=== PATIENT | female | born 1945 | race Caucasian/White ===

== ENCOUNTER → 2016-11-20 | Outpatient (CLI) | payer MEDICARE, OTHER ==
[~2016-11-20] MED LIST: AC500T PO; ACYC800T PO; AZIT-21 PO; CATHETER FLUSH 10 ML SYR IV PRN; DULO60CA58 PO; FURO20TA4 PO; HYDR-3816 PO; HYDR1TAB PO; IOHEXOL 350 MG/ML 100 ML (OMNIPAQUE 350) VIAL IV ONE; LACT1CAP8 PO; LEVO500T69 PO; METO25TA PO; MULT-1029 PO; NAPR-243 PO; NS 100 ML (IVPB) BAG IV ONE
--- OUTSIDE RECORDS SUMMARY | 2016-11-20 12:58 | XMS REPORT | Continuity of Care Document ---
Author Author [facility] Organization [facility] Address Unknown Phone Unavailable Allergies Active Description Code Type Severity Reaction Onset Reported/Identified Relationship to Patient Clinical Status Yes cephalexin [id number] Drug Allergy Unknown N/A 12/21/2010 Yes STEROIDS STEROIDS Unknown N/A 12/21/2010 Yes Sulfa (Sulfonamide Antibiotics) [id number] Drug Allergy Unknown RASH 09/19/2012 Medications Problems Date Dx Coded Attending Type Code Diagnosis Diagnosed By 12/21/2010 Ot 562.10 12/21/2010 Ot V12.72 12/21/2010 Ot V67.09 03/22/2012 Ot 047.9 03/22/2012 Ot 272.4 03/22/2012 Ot 305.1 03/22/2012 Ot 719.41 03/22/2012 Ot 785.3 03/22/2012 Ot V10.3 03/22/2012 Ot V45.71 03/24/2012 Ot 780.4 03/24/2012 Ot 784.0 09/19/2012 Ot 702.19 09/22/2014 CHRISTEN FLORES MD Ot 719.45 10/22/2014 KEESHA PERDUE, CARLOTTA [...] KEESHA PERDUE, CARLOTTA Jerome Ot V12.72 02/10/2015 EKESHA PERDUE, CARLOTTA eJrome Ot V58.69 02/10/2015 KEESHA PERDUE, CARLOTTA Jerome [...] CARLOTTA K Ot 733.00 02/10/2015 KEESHA PERDUE, CARLOTTA Queenie Ot V10.3 02/10/2015 KEESHA PERDUE, CARLOTTA [...] PERDUE, CARLOTTA K Ot V67.1 05/24/2015 KEESHA PERDUE, CARLOTTA K Ot V10.3 05/24/2015 KEESHA PERDUE, [...] PERDUE, CHRISTEN Jamison Ot 305.1 10/27/2015 SANDRA PERDUE, CHRISTEN Jamison Ot 401.9 10/27/2015 SANDRA PERDUE, [...] 10/28/2015 ROXANE VILLAVICENCIO MD, Ot 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 Type Provider Facility Loc./Unit Complaint [id number] 05/01/2016 13:14:00 2015 00:01:00 DIS Outpatient CARLOTTA THAO MD [facility] ONC [id number] 05/17/2016 08:46:00 2015 12:10:00 DIS Outpatient ROXANE VILLAVICENCIO MD [facility] SDC HX POLPS [id number] 05/11/2016 05:35:00 2015 11:10:00 DIS Outpatient ROXANE VILLAVICENCIO MD [facility] PREOP HX POLPS [id number] 09/20/2015 15:06:00 2015 00:01:00 DIS Outpatient CARLOTTA THAO MD [facility] ONC [id number] 10/27/2015 11:04:00 2015 17:43:00 DIS Outpatient ORXANE VILLAVICENCIO MD [facility] SD CHOLELITHIASIS BILIARY COLIC [id number] 05/24/2015 08:05:00 2014 00:01:00 DIS Outpatient CARLOTTA THAO MD [facility] ONC [id number] 05/31/2015 09:50:00 2014 23:59:59 CLS Outpatient CARLOTTA THAO MD [facility] RAD BREAST CA,LUNG NODULES [id number] 03/18/2015 14:04:00 2014 00:01:00 DIS Outpatient CARLOTTA THAO MD [facility] ONC [id number] 02/10/2015 08:31:00 2014 23:59:59 CLS Outpatient CARLOTTA THAO MD [facility] RAD SCREENING [id number] 12/01/2014 07:01:00 2014 23:59:59 CLS Outpatient CHRISTEN FLORES MD [facility] RAD [id number] 10/01/2014 09:17:00 2013 23:59:59 CLS Outpatient CARLOTTA THAO MD [facility] ONC [id number] 08/13/2014 14:21:00 2013 23:59:59 CLS Outpatient CHRISTEN FLORES MD [facility] RAD [id number] 03/17/2014 09:45:00 2013 23:59:59 CLS Outpatient CARLOTTA THAO MD [facility] ONC [id number] 02/09/2014 07:51:00 2013 23:59:59 CLS Outpatient CARLOTTA THAO MD [facility] RAD [id number] 09/01/2013 14:16:00 2012 23:59:59 CLS Outpatient CARLOTTA THAO MD [facility] ONC [id number] 02/18/2013 08:48:00 2012 23:59:59 CLS Outpatient CARLOTTA THAO MD [facility] ONC [id number] 11/20/2016 13:15:00 CARLOTTA Rodríguez MD [facility] RAD BREAST CA,MULTIPLE NODULES OF LUNG [id number] 07/31/2016 00:09:00 CARLOTTA Rodríguez MD [facility] ONC [id number] 02/14/2016 07:24:00 ACT Outpatient CARLOTTA THAO MD [facility] RAD SCREENING [id number] 12/15/2015 11:08:00 Document Registration [id number] 11/17/2015 08:14:00 Document Registration [id number] 02/10/2015 08:32:00 Document Registration [id number] 02/10/2015 08:32:00 Document Registration [id number] 02/06/2013 07:22:00 Document Registration [id number] 09/19/2012 06:04:00 Document Registration [id number] 09/16/2012 12:45:00 Document Registration [id number] 08/20/2012 09:14:00 Document Registration [id number] 07/16/2012 11:14:00 Document Registration [id number] 03/24/2012 10:27:00 Document Registration [id number] 03/20/2012 15:26:00 Document Registration [id number] 02/13/2012 08:52:00 Document Registration [id number] 02/06/2012 09:12:00 Document Registration [id number] 10/03/2011 09:19:00 Document Registration [id number] 09/28/2011 07:06:00 Document Registration [id number] 09/25/2011 13:08:00 Document Registration [id number] 09/01/2011 10:25:00 Document Registration [id number] 05/10/2011 13:01:00 Document Registration [id number] 02/01/2011 07:29:00 Document Registration [id number] 12/21/2010 10:01:00 Document Registration [id number] 11/01/2010 09:25:00 Document Registration
--- NOTE | 2016-11-20 14:39 | Diagnostic Imaging Report ---
PROCEDURE: CT chest with contrast only. TECHNIQUE: Multiple contiguous axial images were obtained through the chest after administration of intravenous contrast. INDICATION: Lung nodule. History of breast cancer. COMPARISON: CT chest with contrast of 12/01/2014, 05/31/2015, 11/17/2015. FINDINGS: Stable 7 mm pulmonary nodule in the right minor fissure (series 2, image 32), 5 mm pulmonary nodule in the right middle lobe (image 39), and 7 mm nodule in the posterior right lower lobe (image 46). Numerous micronodules in the posterior right upper lobe are also stable. No new pulmonary nodules. Moderate centrilobular emphysema, greatest in the lung apices. Mild scarring in the lung bases. 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 No pleural or pericardial effusion. No mediastinal or hilar lymphadenopathy. Stable small esophageal hiatal hernia. Moderate atherosclerotic calcifications. Postoperative changes in the left axilla. Cholecystectomy. The visualized upper abdominal contents, including the adrenal glands, are unremarkable. Mild degenerative changes in the spine. IMPRESSION: 1. The pulmonary nodules in the right lung have been stable since 12/01/2014 and should be benign. No new pulmonary nodules. 2. Chronic emphysematous changes are overall stable. 3. No acute CT findings in the chest. Dictated by: Dictated on workstation # [id number]
== END ==
LOC: RAD 12:53
PROVIDERS: ATTEND Internal Medicine Hematology & Oncology
DX: R91.8 Other nonspecific abnormal finding of lung field (principal); C50.412 Malignant neoplasm of upper-outer quadrant of left female breast
CPT/HCPCS: 71260

== ENCOUNTER 2016-11-27 12:52 | Outpatient (RCR) | payer MEDICARE, OTHER ==
--- OUTSIDE RECORDS SUMMARY | 2016-11-20 11:54 | XMS REPORT | Continuity of Care Document ---
Author Author [facility] Organization [facility] Address Unknown Phone Unavailable Allergies Active Description Code Type Severity Reaction Onset Reported/Identified Relationship to Patient Clinical Status Yes cephalexin [id number] Drug Allergy Unknown N/A 12/21/2010 Yes STEROIDS STEROIDS Unknown N/A 12/21/2010 Yes Sulfa (Sulfonamide Antibiotics) [id number] Drug Allergy Unknown RASH 09/19/2012 Medications Problems Date Dx Coded Attending Type Code Diagnosis Diagnosed By 12/21/2010 Ot 562.10 12/21/2010 Ot V12.72 12/21/2010 Ot V67.09 03/22/2012 Ot 047.9 03/22/2012 Ot 272.4 03/22/2012 Ot 305.1 03/22/2012 Ot 719.41 03/22/2012 Ot 785.3 03/22/2012 Ot V10.3 03/22/2012 Ot V45.71 03/24/2012 Ot 780.4 03/24/2012 Ot 784.0 09/19/2012 Ot 702.19 09/22/2014 CHRISTEN FLROES MD Ot 719.45 10/22/2014 KEESHA PERDUE, CARLOTTA Jerome Ot 305.1 10/22/2014 KEESHA PERDUE, CARLOTTA Jerome Ot 733.00 10/22/2014 KEESHA PERDUE, CARLOTTA Jerome Ot V10.3 10/22/2014 KEESHA PERDUE, CARLOTTA Jerome Ot V12.72 10/22/2014 KEESHA PERDUE, CARLOTTA Jerome Ot V58.69 10/22/2014 KEESHA PERDUE, CARLOTTA Jerome Ot V67.1 11/09/2014 KEESHA PERDUE, CARLOTTA Jerome Ot 305.1 11/09/2014 KEESHA PERDUE, CARLOTTA Jerome Ot 733.00 11/09/2014 KEESHA PERDUE, CARLOTTA Jerome Ot V10.3 11/09/2014 KEESHA PERDUE, CARLOTTA Jerome Ot V12.72 11/09/2014 KEESHA PERDUE, CARLOTTA Jerome Ot V58.69 11/09/2014 KEESHA PERDUE, CARLOTTA Jerome Ot V67.1 12/02/2014 KEESHA PERDUE, CARLOTTA K Ot 174.9 12/02/2014 KEESHA PERDUE, CARLOTTA K Ot 305.1 12/02/2014 KEESHA PERDUE, CARLOTTA K Ot 733.00 12/02/2014 KEESHA PERDUE, CARLOTTA K Ot V10.3 12/02/2014 KEESHA PERDUE, CARLOTTA K Ot V12.72 12/02/2014 KEESHA PERDUE, CARLOTTA K Ot V58.69 12/02/2014 KEESHA PERDUE, CARLOTTA K Ot V67.1 12/02/2014 SANDRA PERDUE, CHRISTEN A Ot 719.45 12/02/2014 KEESHA PERDUE, CARLOTTA K Ot 305.1 12/02/2014 KEESHA PERDUE, CARLOTTA K Ot 733.00 12/02/2014 KEESHA PERDUE, CARLOTTA K Ot V10.3 12/02/2014 KEESHA PERDUE, CARLOTTA K Ot V12.72 12/02/2014 KEESHA PERDUE, CARLOTTA K Ot V58.69 12/02/2014 KEESHA PERDUE, CARLOTTA K Ot V67.1 12/03/2014 KEESHA PERDUE, CARLOTTA K Ot 174.9 12/03/2014 KEESHA PERDUE, CARLOTTA K Ot 305.1 12/03/2014 KEESHA PERDUE, CARLOTTA K Ot 733.00 12/03/2014 KEESHA PERDUE, CARLOTTA K Ot V10.3 12/03/2014 KEESHA PERDUE, CARLOTTA K Ot V12.72 12/03/2014 KEESHA PERDUE, CARLOTTA K Ot V58.69 12/03/2014 KEESHA PERDUE, CARLOTTA K Ot V67.1 12/03/2014 SANDRA PERDUE, CHRISTEN A Ot 719.45 12/03/2014 KEESHA PERDUE, CARLOTTA K Ot 305.1 12/03/2014 KEESHA PERDUE, CARLOTTA Queenie Ot 733.00 12/03/2014 KEESHA PERDUE, CARLOTTA K Ot V10.3 12/03/2014 KEESHA PERDUE, CARLOTTA K Ot V12.72 12/03/2014 KEESHA PERDUE, CARLOTTA K Ot V58.69 12/03/2014 KEESHA PERDUE, CARLOTTA K Ot V67.1 12/03/2014 SANDRA PERDUE, CHRISTEN A Ot 305.1 12/03/2014 SANDRA PERDUE, CHRISTEN A Ot 401.9 12/03/2014 SANDRA PERDUE, CHRISTEN A Ot 492.8 12/03/2014 SANDRA PERDUE, CHRISTEN A Ot V81.5 01/08/2015 SANDRA PERDUE, CHRISTEN A Ot 305.1 01/08/2015 SANDRA PERDUE, CHRISTEN Jamison Ot 401.9 01/08/2015 SANDRA PERDUE, CHRISTEN A Ot 492.8 01/08/2015 SANDRA PERDUE, CHRISTEN Jamison Ot V81.5 02/10/2015 Ot 433.30 02/10/2015 Ot 722.4 02/10/2015 Ot 781.2 02/10/2015 Ot 564.00 02/10/2015 Ot 789.00 02/10/2015 Ot 216.5 02/10/2015 Ot 305.1 02/10/2015 Ot 733.00 02/10/2015 Ot V10.3 02/10/2015 Ot V12.72 02/10/2015 Ot V45.77 02/10/2015 Ot V58.69 02/10/2015 Ot V67.1 02/10/2015 Ot 174.9 02/10/2015 Ot 709.9 02/10/2015 Ot V72.84 02/10/2015 Ot V74.8 02/10/2015 Ot 599.0 02/10/2015 KEESHA PERDUE, CARLOTTA Queenie Ot 216.5 02/10/2015 KEESHA PERDUE, CARLOTTA Jerome Ot 305.1 02/10/2015 KEESHA PERDUE, CARLOTTA Jerome Ot 733.00 02/10/2015 KEESHA PERDUE, CARLOTTA Jerome Ot V10.3 02/10/2015 KEESHA PERDUE, CARLOTTA Queenie Ot V12.72 02/10/2015 KEESHA PERDUE, CARLOTTA Queenie Ot V45.77 02/10/2015 KEESHA PERDUE, CARLOTTA Queenie Ot V58.69 02/10/2015 KEESHA PERDUE, CARLOTTA Jerome Ot V67.1 02/10/2015 KEESHA PERDUE, CARLOTTA Jerome Ot 305.1 02/10/2015 KEESHA PERDUE, CARLOTTA Jerome Ot 733.00 02/10/2015 KEESHA PERDUE, CARLOTTA Jerome Ot V10.3 02/10/2015 KEESHA PERDUE, CARLOTTA Jerome Ot V12.72 02/10/2015 KEESHA PERDUE, CARLOTTA Jerome Ot V58.69 02/10/2015 KEESHA PERDUE, CARLOTTA Jerome Ot V67.1 02/10/2015 KEESHA PERDUE, CARLOTTA Jerome Ot 174.9 02/10/2015 KEESHA PERDUE, CARLOTTA Jerome Ot 305.1 02/10/2015 KEESHA PERDUE, CARLOTTA Jerome Ot 733.00 02/10/2015 KEESHA PERDUE, CARLOTTA Jerome Ot V10.3 02/10/2015 KEESHA PERDUE, CARLOTTA Jerome Ot V12.72 02/10/2015 KEESHA PERDUE, CARLOTTA Jerome Ot V58.69 02/10/2015 KEESHA PERDUE, CARLOTTA K Ot V67.1 02/10/2015 SANDRA PERDUE, CHRISTEN A Ot 719.45 02/10/2015 KEESHA PERDUE, CARLOTTA Jerome Ot 305.1 02/10/2015 KEESHA PERDUE, CARLOTTA K Ot 733.00 02/10/2015 KEESHA PERDUE, CARLOTAT Queenie Ot V10.3 02/10/2015 KEESHA PERDUE, CARLOTTA Jerome Ot V12.72 02/10/2015 KEESHA PERDUE, CARLOTTA K Ot V58.69 02/10/2015 KEESHA PERDUE, CARLOTTA K Ot V67.1 02/10/2015 SANDRA PERDUE, CHRISTEN A Ot 305.1 02/10/2015 SANDRA PERDUE, CHRISTEN A Ot 401.9 02/10/2015 SANDRA PERDUE, CHRISTEN A Ot 492.8 02/10/2015 SANDRA PERDUE, CHRISTEN A Ot V81.5 02/10/2015 KEESHA PERDUE, CARLOTTA Jerome Ot V10.3 02/10/2015 KEESHA PERDUE, CARLOTTA Jerome Ot V58.69 02/10/2015 KEESHA PERDUE, CARLOTTA Jerome Ot V67.1 03/05/2015 KEESHA PERDUE, CARLOTTA Jerome Ot V10.3 03/05/2015 KEESHA PERDUE, CARLOTTA Queenie Ot V58.69 03/05/2015 KEESHA PERDUE, CARLOTTA Jerome Ot V67.1 03/13/2015 KEESHA PERDUE, CARLOTTA Jerome Ot 174.9 03/13/2015 KEESHA PERDUE, CARLOTTA K Ot V76.11 04/05/2015 KEESHA PERDUE, CARLOTTA Jerome Ot V10.3 04/05/2015 KEESHA PERDUE, CARLOTTA Jerome Ot V58.69 04/05/2015 KEESHA PERDUE, CARLOTTA K Ot V67.1 05/24/2015 KEESHA PERDEU, CARLOTTA K Ot V10.3 05/24/2015 KEESHA PERDUE, CARLOTTA K Ot V58.69 05/24/2015 KEESHA PERDUE, CARLOTTA K Ot V67.1 05/25/2015 KEESHA PERDUE, CARLOTTA Jerome Ot V10.3 05/25/2015 KEESHA PERDUE, CARLOTTA Jerome Ot V58.69 05/25/2015 KEESHA PERDUE, CARLOTTA K Ot V67.1 06/02/2015 KEESHA PERDUE, CARLOTTA Jerome Ot V10.3 06/02/2015 KEESHA PERDUE, CARLOTTA Jerome Ot V58.69 06/02/2015 KEESHA PERDUE, CARLOTTA K Ot V67.1 06/08/2015 KEESHA PERDUE, CARLOTTA Queenie Ot 174.9 06/08/2015 KEESHA PERDUE, CARLOTTA Jerome Ot 793.19 06/08/2015 KEESHA PERDUE, CARLOTTA Jerome Ot V10.3 06/08/2015 KEESHA PERDUE, CARLOTTA Jerome Ot V58.69 06/08/2015 KEESHA PERDUE, CARLOTTA Jerome Ot V67.1 06/08/2015 KEESHA PERDUE, CARLOTTA Jerome Ot V10.3 06/08/2015 KEESHA PERDUE, CARLOTTA Jerome Ot V58.69 06/08/2015 KEESHA PERDUE, CARLOTTA Jerome Ot V67.1 06/09/2015 KEESHA PERDUE, CARLOTTA Jerome Ot 174.9 06/09/2015 KEESHA PERDUE, CARLOTTA Jerome Ot 793.19 06/23/2015 KEESHA PERDUE, CARLOTTA Queenie Ot 174.9 06/23/2015 KEESHA PERDUE, CARLOTTA Queenie Ot 793.19 07/05/2015 KEESHA PERDUE, CARLOTTA Jerome Ot 174.9 07/05/2015 KEESHA PERDUE, CARLOTTA Jerome Ot 793.19 07/14/2015 KEESHA PERDUE, CARLOTTA Jerome Ot V10.3 HX OF BREAST MALIGNANCY 07/14/2015 KEESHA PERDUE, CARLOTTA Jerome Ot V58.69 OTH MED,LT,CURRENT USE 07/14/2015 KEESHA PERDUE, CARLOTTA Jerome Ot V67.1 RADIOTHERAPY FOLLOW-UP 07/14/2015 KEESHA PERDUE, CARLOTTA Queenie Ot V10.3 07/14/2015 KEESHA PERDUE, CARLOTTA Jerome Ot V58.69 07/14/2015 KEESHA PERDUE, CARLOTTA Jerome Ot V67.1 10/27/2015 Ot 433.30 10/27/2015 Ot 722.4 10/27/2015 Ot 781.2 10/27/2015 Ot 564.00 10/27/2015 Ot 789.00 10/27/2015 Ot 216.5 10/27/2015 Ot 305.1 10/27/2015 Ot 733.00 10/27/2015 Ot V10.3 10/27/2015 Ot V12.72 10/27/2015 Ot V45.77 10/27/2015 Ot V58.69 10/27/2015 Ot V67.1 10/27/2015 Ot 174.9 10/27/2015 Ot 709.9 10/27/2015 Ot V72.84 10/27/2015 Ot V74.8 10/27/2015 Ot 599.0 10/27/2015 KEESHA PERDUE, CARLOTTA Queenie Ot 216.5 10/27/2015 KEESHA PERDUE, CARLOTTA K Ot 305.1 10/27/2015 KEESHA PERDUE, CARLOTTA K Ot 733.00 10/27/2015 KEESHA PERDUE, CARLOTTA K Ot V10.3 10/27/2015 KEESHA PERDUE, CARLOTTA K Ot V12.72 10/27/2015 KEESHA PERDUE, CARLOTTA K Ot V45.77 10/27/2015 KEESHA PERDUE, CARLOTTA K Ot V58.69 10/27/2015 KEESHA PERDUE, CARLOTTA K Ot V67.1 10/27/2015 KEESHA PERDUE, CARLOTTA K Ot 305.1 10/27/2015 KEESHA PERDUE, CARLOTTA K Ot 733.00 10/27/2015 KEESHA PERDUE, CARLOTTA K Ot V10.3 10/27/2015 KEESHA PERDUE, CARLOTTA K Ot V12.72 10/27/2015 KEESHA PERDUE, CARLOTTA K Ot V58.69 10/27/2015 KEESHA PERDUE, CARLOTTA K Ot V67.1 10/27/2015 KEESHA PERDUE, CARLOTTA K Ot 174.9 10/27/2015 KEESHA PERDUE, CARLOTTA K Ot 305.1 10/27/2015 KEESHA PERDUE, CARLOTTA K Ot 733.00 10/27/2015 KEESHA PERDUE, CARLOTTA K Ot V10.3 10/27/2015 KEESHA PERDUE, CARLOTTA K Ot V12.72 10/27/2015 KEESHA PERDUE, CARLOTTA K Ot V58.69 10/27/2015 KEESHA PERDUE, CARLOTTA K Ot V67.1 10/27/2015 SANDRA PERDUE, CHRISTEN Jamison Ot 719.45 10/27/2015 KEESHA PERDUE, CARLOTTA K Ot 305.1 10/27/2015 KEESHA PERDUE, CARLOTTA K Ot 733.00 10/27/2015 KEESHA PERDUE, CARLOTTA K Ot V10.3 10/27/2015 KEESHA PERDUE, CARLOTTA K Ot V12.72 10/27/2015 KEESHA PERDUE, CARLOTTA K Ot V58.69 10/27/2015 KEESHA PERDUE, CARLOTTA K Ot V67.1 10/27/2015 KEESHA PERDUE, CARLOTTA Queenie Ot 174.9 10/27/2015 KEESHA PERDUE, CARLOTTA K Ot V76.11 10/27/2015 SANDRA PERDUE, CHRISTEN Jamison Ot 305.1 10/27/2015 SANDRA PEDRUE, CHRISTEN Jamison Ot 401.9 10/27/2015 SANDRA PERDUE, CHRISTEN A Ot 492.8 10/27/2015 SANDRA PERDUE, CHRISTEN Jamison Ot V81.5 10/27/2015 KEESHA PERDUE, CARLOTTA Jerome Ot 174.9 10/27/2015 KEESHA PERDUE, CARLOTTA Jerome Ot 793.19 10/27/2015 KEESHA PERDUE, CARLOTTA Jerome Ot Z08 10/27/2015 KEESHA PERDUE, CARLOTTA Jerome Ot Z85.3 10/27/2015 KEESHA PERDUE, CARLOTTA Jerome Ot 174.9 10/27/2015 KEESHA PERDUE, CARLOTTA Jerome Ot V76.11 10/27/2015 KEESHA PERDUE, CARLOTTA Jerome Ot 174.9 10/27/2015 KEESHA PERDUE, CARLOTTA Jerome Ot 793.19 10/27/2015 KEESHA PERDUE, CARLOTTA Jerome Ot Z08 10/27/2015 KEESHA PERDUE, CARLOTTA Jerome Ot Z85.3 10/28/2015 ROXANE VILLAVICENCIO MD Ot I10 ESSENTIAL (PRIMARY) HYPERTENSION 10/28/2015 SAUD PERDUE, ROXANE Jones 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 10/28/2015 ROXANE VILLAVICENCIO MD, Ot Z79.899 OTHER POLICE COMMISSIONER (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) DRUG THERAPY 11/10/2015 KEESHA PERDUE, CARLOTTA Queenie Ot Z08 11/10/2015 KEESHA PERDUE, CARLOTTA Jerome Ot Z85.3 11/24/2015 KEESHA PERDUE, CARLOTTA Jerome Ot Z08 11/24/2015 KEESHA PERDUE, CARLOTTA Jerome Ot Z85.3 12/01/2015 KEESHA PERDUE, CARLOTTA Jerome Ot 174.9 12/01/2015 KEESHA PERDUE, CARLOTTA Jerome Ot V76.11 12/01/2015 KEESHA PERDUE, CARLOTTA Jerome Ot 174.9 12/01/2015 KEESHA PERDUE, CARLOTTA Jerome Ot 793.19 12/01/2015 KEESHA PERDUE, CARLOTTA Queenie Ot Z08 12/01/2015 KEESHA PERDUE, CARLOTTA Jerome Ot Z85.3 12/01/2015 Ot J44.9 12/01/2015 Ot R91.1 12/10/2015 Ot J44.9 12/10/2015 Ot R91.1 12/15/2015 Ot 305.1 12/15/2015 Ot 562.10 12/15/2015 Ot 716.90 12/15/2015 Ot 733.00 12/15/2015 Ot V10.3 12/15/2015 Ot V12.72 12/15/2015 Ot V45.77 12/15/2015 Ot V58.69 12/15/2015 Ot V67.1 12/15/2015 Ot 174.9 12/15/2015 Ot 174.9 12/15/2015 Ot 053.9 12/15/2015 Ot 305.1 12/15/2015 Ot 733.00 12/15/2015 Ot V10.3 12/15/2015 Ot V12.72 12/15/2015 Ot V45.77 12/15/2015 Ot V58.69 12/15/2015 Ot V67.1 12/15/2015 Ot 174.9 12/15/2015 Ot 174.9 12/15/2015 Ot 053.9 12/15/2015 Ot 305.1 12/15/2015 Ot 733.00 12/15/2015 Ot V10.3 12/15/2015 Ot V12.72 12/15/2015 Ot V45.77 12/15/2015 Ot V58.69 12/15/2015 Ot V67.1 12/15/2015 Ot 174.9 12/15/2015 Ot 305.1 12/15/2015 Ot 733.00 12/15/2015 Ot V10.3 12/15/2015 Ot V12.72 12/15/2015 Ot V45.77 12/15/2015 Ot V58.69 12/15/2015 Ot V67.1 12/19/2015 CARLOTTA THAO MD Ot Z08 ENCNTR FOR FOLLOW-UP EXAM AFTER TRTMT FO 12/19/2015 CARLOTTA THAO MD Ot Z85.3 PERSONAL HISTORY OF MALIGNANT NEOPLASM O 12/24/2015 Ot J44.9 12/24/2015 Ot R91.1 02/16/2016 CARLOTTA THAO MD Ot R91.8 OTHER NONSPECIFIC ABNORMAL FINDING OF ZOHRA 02/16/2016 CARLOTTA THAO MD Ot Z12.11 ENCOUNTER FOR SCREENING FOR MALIGNANT NE 02/16/2016 CARLOTTA THAO MD Ot R91.8 OTHER NONSPECIFIC ABNORMAL FINDING OF ZOHRA 02/16/2016 CARLOTTA THAO MD Ot Z12.11 ENCOUNTER FOR SCREENING FOR MALIGNANT NE 02/22/2016 CARLOTTA THAO MD Ot Z08 ENCNTR FOR FOLLOW-UP EXAM AFTER TRTMT FO 02/22/2016 CARLOTTA THAO MD Ot Z85.3 PERSONAL HISTORY OF MALIGNANT NEOPLASM O 03/07/2016 CARLOTTA THAO MD Ot R91.8 OTHER NONSPECIFIC ABNORMAL FINDING OF ZOHRA 03/07/2016 CARLOTTA THAO MD Ot Z12.31 ENCNTR SCREEN MAMMOGRAM FOR MALIGNANT NE 04/05/2016 CARLOTTA THAO MD Ot R91.8 OTHER NONSPECIFIC ABNORMAL FINDING OF ZOHRA 04/05/2016 CARLOTTA THAO MD Ot Z12.31 ENCNTR SCREEN MAMMOGRAM FOR MALIGNANT NE 04/19/2016 CARLOTTA THAO MD Ot Z08 ENCNTR FOR FOLLOW-UP EXAM AFTER TRTMT FO 04/19/2016 CARLOTTA THAO MD Ot Z85.3 PERSONAL HISTORY OF MALIGNANT NEOPLASM O 05/11/2016 ROXANE VILLAVICENCIO MD Ot Z01.818 ENCOUNTER FOR OTHER PREPROCEDURAL EXAMIN 05/11/2016 ROXANE VILLAVICENCIO MD Ot Z86.010 PERSONAL HISTORY OF COLONIC POLYPS 05/12/2016 ROXANE VILLAVICENCIO MD Ot Z01.818 ENCOUNTER FOR OTHER PREPROCEDURAL EXAMIN 05/12/2016 ROXANE VILLAVICENCIO MD Ot Z86.010 PERSONAL HISTORY OF COLONIC POLYPS 05/17/2016 ROXANE VILLAVICENCIO MD, Ot K57.90 DVRTCLOS OF INTEST, PART UNSP, W/O PERF 05/17/2016 ROXANE VILLAVICENCIO MD Ot K62.1 RECTAL POLYP 05/17/2016 ROXANE VILLAVICENCIO MD Ot K64.1 SECOND DEGREE HEMORRHOIDS 05/17/2016 ROXANE VILLAVICENCIO MD Ot Z09 ENCNTR FOR F/U EXAM AFT TRTMT FOR COND O 05/17/2016 ROXANE VILLAVICENCIO MD Ot Z85.3 PERSONAL HISTORY OF MALIGNANT NEOPLASM O 05/17/2016 ROXANE VILLAVICENCIO MD Ot Z86.010 PERSONAL HISTORY OF COLONIC POLYPS 05/18/2016 ROXANE VILLAVICENCIO MD Ot K57.90 DVRTCLOS OF INTEST, PART UNSP, W/O PERF 05/18/2016 ROXANE VILLAVICENCIO MD Ot K62.1 RECTAL POLYP 05/18/2016 ROXANE VILLAVICENCIO MD Ot K64.1 SECOND DEGREE HEMORRHOIDS 05/18/2016 ROXANE VILLAVICENCIO MD Ot Z09 ENCNTR FOR F/U EXAM AFT TRTMT FOR COND O 05/18/2016 ROXANE VILLAVICENCIO MD Ot Z85.3 PERSONAL HISTORY OF MALIGNANT NEOPLASM O 05/18/2016 ROXANE VILLAVICENCIO MD Ot Z86.010 PERSONAL HISTORY OF COLONIC POLYPS 05/19/2016 ROXANE VILLAVICENCIO MD Ot K57.90 DVRTCLOS OF INTEST, PART UNSP, W/O PERF 05/19/2016 ROXANE VILLAVICENCIO MD Ot K62.1 RECTAL POLYP 05/19/2016 ROXANE VILLAVICENCIO MD, Ot K64.1 SECOND DEGREE HEMORRHOIDS 05/19/2016 ROXANE VILLAVICENCIO MD Ot Z09 ENCNTR FOR F/U EXAM AFT TRTMT FOR COND O 05/19/2016 ROXANE VILLAVICENCIO MD, Ot Z85.3 PERSONAL HISTORY OF MALIGNANT NEOPLASM O 05/19/2016 ROXANE VILLAVICENCIO MD, Ot Z86.010 PERSONAL HISTORY OF COLONIC POLYPS 05/23/2016 ROXANE VILLAVICENCIO MD, Ot K57.90 DVRTCLOS OF INTEST, PART UNSP, W/O PERF 05/23/2016 ROXANE VILLAVICENCIO MD, Ot K62.1 RECTAL POLYP 05/23/2016 ROXANE VILLAVICENCIO MD, Ot K64.1 SECOND DEGREE HEMORRHOIDS 05/23/2016 ROXANE VILLAVICENCIO MD, Ot Z09 ENCNTR FOR F/U EXAM AFT TRTMT FOR COND O 05/23/2016 ROXANE VILLAVICENCIO MD, Ot Z85.3 PERSONAL HISTORY OF MALIGNANT NEOPLASM O 05/23/2016 ROXANE VILLAVICENCIO MD, Ot Z86.010 PERSONAL HISTORY OF COLONIC POLYPS 05/26/2016 KEESHA PERDUE, CARLOTTA Jerome Ot Z08 ENCNTR FOR FOLLOW-UP EXAM AFTER TRTMT FO 05/26/2016 CARLOTTA THAO MD Ot Z85.3 PERSONAL HISTORY OF MALIGNANT NEOPLASM O 06/14/2016 CARLOTTA THAO MD Ot Z08 ENCNTR FOR FOLLOW-UP EXAM AFTER TRTMT FO 06/14/2016 CARLOTTA THAO MD Ot Z85.3 PERSONAL HISTORY OF MALIGNANT NEOPLASM O 07/03/2016 CARLOTTA THAO MD Ot Z08 ENCNTR FOR FOLLOW-UP EXAM AFTER TRTMT FO 07/03/2016 CARLOTTA THAO MD Ot Z85.3 PERSONAL HISTORY OF MALIGNANT NEOPLASM O 07/30/2016 CARLOTTA THAO MD Ot Z08 ENCNTR FOR FOLLOW-UP EXAM AFTER TRTMT FO 07/30/2016 CARLOTTA THAO MD Ot Z85.3 PERSONAL HISTORY OF MALIGNANT NEOPLASM O 08/05/2016 CARLOTTA THAO MD Ot Z08 ENCNTR FOR FOLLOW-UP EXAM AFTER TRTMT FO 08/05/2016 CARLOTTA THAO MD Ot Z85.3 PERSONAL HISTORY OF MALIGNANT NEOPLASM O 10/14/2016 Ot 174.9 MALIGN NEOPL BREAST NOS 10/14/2016 Ot 053.9 HERPES ZOSTER NOS 10/14/2016 Ot 305.1 TOBACCO USE DISORDER 10/14/2016 Ot 733.00 OSTEOPOROSIS NOS 10/14/2016 Ot V10.3 HX OF BREAST MALIGNANCY 10/14/2016 Ot V12.72 PERSONAL HISTORY OF COLONIC POLYPS 10/14/2016 Ot V45.77 ACQRD ABSENCE OF GENITAL ORGANS 10/14/2016 Ot V58.69 OTH MED,LT,CURRENT USE 10/14/2016 Ot V67.1 RADIOTHERAPY FOLLOW-UP 10/14/2016 Ot 174.9 MALIGN NEOPL BREAST NOS 10/14/2016 Ot 174.9 MALIGN NEOPL BREAST NOS 10/14/2016 Ot 053.9 HERPES ZOSTER NOS 10/14/2016 Ot 305.1 TOBACCO USE DISORDER 10/14/2016 Ot 733.00 OSTEOPOROSIS NOS 10/14/2016 Ot V10.3 HX OF BREAST MALIGNANCY 10/14/2016 Ot V12.72 PERSONAL HISTORY OF COLONIC POLYPS 10/14/2016 Ot V45.77 ACQRD ABSENCE OF GENITAL ORGANS 10/14/2016 Ot V58.69 OTH MED,LT,CURRENT USE 10/14/2016 Ot V67.1 RADIOTHERAPY FOLLOW-UP 10/14/2016 Ot 174.9 MALIGN NEOPL BREAST NOS 10/14/2016 Ot 305.1 TOBACCO USE DISORDER 10/14/2016 Ot 733.00 OSTEOPOROSIS NOS 10/14/2016 Ot V10.3 HX OF BREAST MALIGNANCY 10/14/2016 Ot V12.72 PERSONAL HISTORY OF COLONIC POLYPS 10/14/2016 Ot V45.77 ACQRD ABSENCE OF GENITAL ORGANS 10/14/2016 Ot V58.69 OTH MED,LT,CURRENT USE 10/14/2016 Ot V67.1 RADIOTHERAPY FOLLOW-UP 10/14/2016 CARLOTTA THAO MD Ot 174.9 MALIGN NEOPL BREAST NOS 10/14/2016 CARLOTTA THAO MD Ot V76.11 SCRN MAMMO-HIGH RISK PT, MALIGNANT NEOPL 10/14/2016 CARLOTTA THAO MD Ot 174.9 MALIGN NEOPL BREAST NOS 10/14/2016 CARLOTTA THAO MD Ot 793.19 OTHER NONSPECIFIC ABNORMAL FINDING OF ZOHRA 10/14/2016 Ot J44.9 CHRONIC OBSTRUCTIVE PULMONARY DISEASE, U 10/14/2016 Ot R91.1 SOLITARY PULMONARY NODULE 10/14/2016 CARLOTTA THAO MD Ot R91.8 OTHER NONSPECIFIC ABNORMAL FINDING OF ZOHRA 10/14/2016 CARLOTTA THAO MD Ot Z12.31 ENCNTR SCREEN MAMMOGRAM FOR MALIGNANT NE 10/14/2016 CARLOTTA THAO MD Ot Z08 ENCNTR FOR FOLLOW-UP EXAM AFTER TRTMT FO 10/14/2016 CARLOTTA THAO MD Ot Z85.3 PERSONAL HISTORY OF MALIGNANT NEOPLASM O Procedures Results Encounters ACCT No. Visit Date/Time Discharge Status Pt. Type Provider Facility Loc./Unit Complaint [id number] 05/01/2016 13:14:00 2015 00:01:00 DIS Outpatient CARLOTTA THAO MD [facility] ONC [id number] 05/17/2016 08:46:00 2015 12:10:00 DIS Outpatient ROXANE VILLAVICENCIO MD [facility] SDC HX POLPS [id number] 05/11/2016 05:35:00 2015 11:10:00 DIS Outpatient ROXANE VILLAVICENCIO MD [facility] PREOP HX POLPS [id number] 09/20/2015 15:06:00 2015 00:01:00 DIS Outpatient CARLOTTA THAO MD [facility] ONC [id number] 10/27/2015 11:04:00 2015 17:43:00 DIS Outpatient ROXANE VILLAVICENCIO MD [facility] SD CHOLELITHIASIS BILIARY COLIC [id number] 05/24/2015 08:05:00 2014 00:01:00 DIS Outpatient CARLOTTA THAO MD [facility] ONC [id number] 05/31/2015 09:50:00 2014 23:59:59 CLS Outpatient CARLOTTA THAO MD [facility] RAD BREAST CA,LUNG NODULES [id number] 03/18/2015 14:04:00 2014 00:01:00 DIS Outpatient CARLOTTA THAO MD [facility] ONC [id number] 02/10/2015 08:31:00 2014 23:59:59 CLS Outpatient CARLOTTA THAO MD [facility] RAD SCREENING [id number] 12/01/2014 07:01:00 2014 23:59:59 CLS Outpatient CHRISTEN FLORES MD [facility] RAD [id number] 10/01/2014 09:17:00 2013 23:59:59 CLS Outpatient CARLOTTA THAO MD [facility] ONC [id number] 08/13/2014 14:21:00 2013 23:59:59 CLS Outpatient CHRISTEN FLORES MD [facility] RAD [id number] 03/17/2014 09:45:00 2013 23:59:59 CLS Outpatient CARLOTTA THAO MD [facility] ONC [id number] 02/09/2014 07:51:00 2013 23:59:59 CLS Outpatient CARLOTTA THAO MD [facility] RAD [id number] 09/01/2013 14:16:00 2012 23:59:59 CLS Outpatient CARLOTTA THAO MD [facility] ONC [id number] 02/18/2013 08:48:00 2012 23:59:59 CLS Outpatient CARLOTTA THAO MD [facility] ONC [id number] 11/20/2016 13:15:00 CARLOTTA Rodríguez MD [facility] RAD BREAST CA,MULTIPLE NODULES OF LUNG [id number] 07/31/2016 00:09:00 CARLOTTA Rodríguez MD [facility] ONC [id number] 02/14/2016 07:24:00 ACT Outpatient CARLOTTA THAO MD [facility] RAD SCREENING [id number] 12/15/2015 11:08:00 Document Registration [id number] 11/17/2015 08:14:00 Document Registration [id number] 02/10/2015 08:32:00 Document Registration [id number] 02/10/2015 08:32:00 Document Registration [id number] 02/06/2013 07:22:00 Document Registration [id number] 09/19/2012 06:04:00 Document Registration [id number] 09/16/2012 12:45:00 Document Registration [id number] 08/20/2012 09:14:00 Document Registration [id number] 07/16/2012 11:14:00 Document Registration [id number] 03/24/2012 10:27:00 Document Registration [id number] 03/20/2012 15:26:00 Document Registration [id number] 02/13/2012 08:52:00 Document Registration [id number] 02/06/2012 09:12:00 Document Registration [id number] 10/03/2011 09:19:00 Document Registration [id number] 09/28/2011 07:06:00 Document Registration [id number] 09/25/2011 13:08:00 Document Registration [id number] 09/01/2011 10:25:00 Document Registration [id number] 05/10/2011 13:01:00 Document Registration [id number] 02/01/2011 07:29:00 Document Registration [id number] 12/21/2010 10:01:00 Document Registration [id number] 11/01/2010 09:25:00 Document Registration
[2016-11-20 12:38] LABS: BASOPHILS % (AUTO) 1 % (0-10); EOSINOPHILS # (AUTO) 0.1 10^3/uL (0.0-0.3); EOSINOPHILS % (AUTO) 2 % (0-10); LYMPHOCYTES # (AUTO) 2.6 X 10^3 (1.0-4.0); LYMPHOCYTES % (AUTO) 34 % (12-44); MEAN CORPUSCULAR HEMOGLOBIN 32 PG (25-34); MEAN CORPUSCULAR HGB CONC 35 G/DL (32-36); MEAN CORPUSCULAR VOLUME 93 FL (80-99); MEAN PLATELET VOLUME 8.7 FL (7.4-10.4); MONOCYTES # (AUTO) 0.4 X 10^3 (0.0-1.0); MONOCYTES % (AUTO) 6 % (0-12); NEUTROPHILS # (AUTO) 4.4 X 10^3 (1.8-7.8); NEUTROPHILS % (AUTO) 58 % (42-75); PLATELET COUNT 282 10^3/uL (130-400); RED BLOOD COUNT 4.88 10^6/uL (4.35-5.85); RED CELL DISTRIBUTION WIDTH 13.1 % (10.0-14.5); WHITE BLOOD COUNT 7.6 10^3/uL (4.3-11.0)
[2016-11-20 13:00] LABS: ALANINE AMINOTRANSFERASE 31 U/L (0-55); ALBUMIN 4.4 G/DL (3.2-4.5); ANION GAP 10 MMOL/L (5-14); ASPARTATE AMINO TRANSFERASE 26 U/L (5-34); BILIRUBIN,TOTAL 0.6 MG/DL (0.1-1.0); BLOOD UREA NITROGEN 11 MG/DL (7-18); BUN/CREATININE RATIO 15; CALCIUM 9.3 MG/DL (8.5-10.1); CARBON DIOXIDE 25 MMOL/L (21-32); CHLORIDE 105 MMOL/L (98-107); CREATININE SERUM 0.74 MG/DL (0.60-1.30); GFR ESTIMATED > 60; GLUCOSE 86 MG/DL (70-105); POTASSIUM 4.2 MMOL/L (3.6-5.0); SODIUM 140 MMOL/L (135-145); TOTAL PROTEIN 7.2 G/DL (6.4-8.2)
[~2016-11-27 12:52] MED LIST changes: -CATHETER FLUSH 10 ML SYR IV PRN; -IOHEXOL 350 MG/ML 100 ML (OMNIPAQUE 350) VIAL IV ONE; -NS 100 ML (IVPB) BAG IV ONE
== END 2017-02-18 | disposition home or self-care (01) ==
LOC: ONC 12:52
PROVIDERS: ATTEND Internal Medicine Hematology & Oncology
DX: Z08 Encounter for follow-up examination after completed treatment for malignant neoplasm (principal); Z85.3 Personal history of malignant neoplasm of breast
CPT/HCPCS: 36415; 71260; 80053; 85025; 99213

== ENCOUNTER → 2017-02-02 | Outpatient (CLI) | payer MEDICARE, OTHER ==
--- NOTE | 2017-02-02 11:01 | Diagnostic Imaging Report ---
KUB. INDICATION: Bilateral flank pain. FINDINGS: Surgical clips in the upper right abdomen seen. Fiducial markers projecting over the prostate level are seen. There is deformity along the superior and inferior right pubic rami from old fracture is noted. Vascular calcifications in the pelvis are seen. No definitive urinary tract stone. No dilated bowel loops to suggest obstruction. IMPRESSION: No dilated bowel loops or definite urinary tract stones. Dictated by: Dictated on workstation # [id number]
== END ==
LOC: RAD 09:42
PROVIDERS: ATTEND Nurse Practitioner Family
DX: R10.32 Left lower quadrant pain (principal); R10.31 Right lower quadrant pain
CPT/HCPCS: 74000

== ENCOUNTER → 2017-02-15 | Outpatient (CLI) | payer MEDICARE, OTHER ==
--- NOTE | 2017-02-20 11:46 | Diagnostic Imaging Report ---
Bilateral screening mammogram The current study was also evaluated with a Computer Aided Detection (CAD) system. Indication: Screening. No current complaints stated on the questionnaire. COMPARISON: 5-2-16 FINDINGS: The breasts are composed of scattered fibroglandular densities. There is post therapeutic changes seen in the upper aspect of the left breast slightly laterally with area of scarring stable from multiple prior exams. Adjacent calcifications are noted with minimal change likely dystrophic type. Intramammary lymph node is seen in the upper outer aspect of the right breast. Allowing for technique and positional differences, no suspicious change is seen. IMPRESSION: No significant change. ACR BI-RADS Category 2: Benign findings. Result letter will be mailed to the patient. Note: At least 10% of breast cancer is not imaged by mammography. Dictated by: Dictated on workstation # [id number]
== END ==
LOC: RAD 09:28
PROVIDERS: ATTEND Internal Medicine Hematology & Oncology
DX: Z12.31 Encounter for screening mammogram for malignant neoplasm of breast (principal)
CPT/HCPCS: 77067

== ENCOUNTER 2017-03-02 15:37 | Outpatient (RCR) | payer MEDICARE, OTHER | END 2017-03-05 08:30 | disposition home or self-care (01) | PROVIDERS: ATTEND Podiatrist | DX: M66.872 Spontaneous rupture of other tendons, left ankle and foot (principal) ==

== ENCOUNTER → 2017-05-28 | Outpatient (CLI) | payer MEDICARE, OTHER ==
[2017-05-28 08:58] LABS: BASOPHILS % (AUTO) 0 % (0-10); EOSINOPHILS # (AUTO) 0.1 10^3/uL (0.0-0.3); EOSINOPHILS % (AUTO) 2 % (0-10); LYMPHOCYTES # (AUTO) 2.1 X 10^3 (1.0-4.0); LYMPHOCYTES % (AUTO) 27 % (12-44); MEAN CORPUSCULAR HEMOGLOBIN 32 PG (25-34); MEAN CORPUSCULAR HGB CONC 35 G/DL (32-36); MEAN CORPUSCULAR VOLUME 92 FL (80-99); MEAN PLATELET VOLUME 8.5 FL (7.4-10.4); MONOCYTES # (AUTO) 0.7 X 10^3 (0.0-1.0); MONOCYTES % (AUTO) 8 % (0-12); NEUTROPHILS % (AUTO) 63 % (42-75); PLATELET COUNT 280 10^3/uL (130-400); RED BLOOD COUNT 4.56 10^6/uL (4.35-5.85); RED CELL DISTRIBUTION WIDTH 13.3 % (10.0-14.5)
[2017-05-28 09:38] LABS: ALANINE AMINOTRANSFERASE 19 U/L (0-55); ALBUMIN 4.1 GM/DL (3.2-4.5); ANION GAP 10 MMOL/L (5-14); ASPARTATE AMINO TRANSFERASE 19 U/L (5-34); BILIRUBIN,TOTAL 0.5 MG/DL (0.1-1.0); BLOOD UREA NITROGEN 11 MG/DL (7-18); BUN/CREATININE RATIO 15; CALCIUM 9.7 MG/DL (8.5-10.1); CARBON DIOXIDE 25 MMOL/L (21-32); CHLORIDE 103 MMOL/L (98-107); CREATININE SERUM 0.72 MG/DL (0.60-1.30); GFR ESTIMATED > 60; GLUCOSE 92 MG/DL (70-105); POTASSIUM 4.1 MMOL/L (3.6-5.0); SODIUM 138 MMOL/L (135-145); TOTAL PROTEIN 6.8 GM/DL (6.4-8.2)
== END ==
LOC: EDSTATUS 02-19 16:32 → ONC 08:50
PROVIDERS: ATTEND Internal Medicine Hematology & Oncology
DX: Z08 Encounter for follow-up examination after completed treatment for malignant neoplasm (principal); Z85.3 Personal history of malignant neoplasm of breast; R91.8 Other nonspecific abnormal finding of lung field; F17.210 Nicotine dependence, cigarettes, uncomplicated; Z86.010 Personal history of colon polyps; M81.0 Age-related osteoporosis without current pathological fracture
CPT/HCPCS: 36415; 80053; 85025; 99213

== ENCOUNTER → 2017-07-19 | Outpatient (CLI) | payer MEDICARE, OTHER ==
[~2017-07-19] MED LIST changes: +BARIUM SUSPENSION 2.1% (VANILLA SILQ) 450 ML PO ONE; +IOHEXOL 350 MG/ML 100 ML (OMNIPAQUE 350) VIAL IV ONE; +NS 100 ML (IVPB) BAG IV ONE
--- NOTE | 2017-07-19 13:05 | Diagnostic Imaging Report ---
PROCEDURE: CT abdomen and pelvis with and without contrast. TECHNIQUE: Precontrast acquisitions were acquired through the abdomen and pelvis. Multiple contiguous axial images were obtained through the abdomen and pelvis after the administration of intravenous contrast. INDICATION: Abdominal pain. 100 mL of Omnipaque 350 is administered intravenously. FINDINGS: The lung bases appear clear. The liver, the spleen, the pancreas, and the adrenal glands appear unremarkable. Cholecystectomy clips are seen. The kidneys demonstrate symmetric contrast enhancement and excretion. There is no hydronephrosis. There are bilateral simple appearing renal cysts seen. The unenhanced phase demonstrates no stones. The abdominal aorta is normal in caliber. No para-aortic significantly enlarged lymph node is seen. There is diverticulosis. No diverticulitis. There is no significant free fluid or fluid collection in the abdomen or pelvis seen. Vacuum phenomenon is seen in the SI joints. IMPRESSION: Extensive diverticulosis. No diverticulitis. Dictated by: Dictated on workstation # [id number]
== END ==
LOC: RAD 11:14
PROVIDERS: ATTEND Family Medicine
DX: K57.30 Diverticulosis of large intestine without perforation or abscess without bleeding (principal)
CPT/HCPCS: 74178

== ENCOUNTER 2018-04-22 10:14 | Outpatient (RCR) | payer MEDICARE, OTHER ==
[~2018-04-22 10:14] MED LIST changes: -CATHETER FLUSH 10 ML SYR IV PRN; -IOHEXOL 350 MG/ML 100 ML (OMNIPAQUE 350) VIAL IV ONE; -NS 100 ML (IVPB) BAG IV ONE
[2018-04-22 10:22] LABS: BASOPHILS % (AUTO) 0 % (0-10); EOSINOPHILS # (AUTO) 0.1 10^3/uL (0.0-0.3); EOSINOPHILS % (AUTO) 2 % (0-10); HEMATOCRIT 43 % (35-52); HEMOGLOBIN 14.9 G/DL (11.5-16.0); LYMPHOCYTES # (AUTO) 2.2 X 10^3 (1.0-4.0); LYMPHOCYTES % (AUTO) 30 % (12-44); MEAN CORPUSCULAR HEMOGLOBIN 32 PG (25-34); MEAN CORPUSCULAR HGB CONC 35 G/DL (32-36); MEAN CORPUSCULAR VOLUME 93 FL (80-99); MEAN PLATELET VOLUME 8.5 FL (7.4-10.4); MONOCYTES # (AUTO) 0.5 X 10^3 (0.0-1.0); MONOCYTES % (AUTO) 8 % (0-12); NEUTROPHILS # (AUTO) 4.3 X 10^3 (1.8-7.8); NEUTROPHILS % (AUTO) 60 % (42-75); PLATELET COUNT 273 10^3/uL (130-400); RED BLOOD COUNT 4.62 10^6/uL (4.35-5.85); RED CELL DISTRIBUTION WIDTH 13.5 % (10.0-14.5); WHITE BLOOD COUNT 7.1 10^3/uL (4.3-11.0)
[2018-04-22 10:45] LABS: ALANINE AMINOTRANSFERASE 19 U/L (0-55); ALBUMIN 4.2 GM/DL (3.2-4.5); ALKALINE PHOSPHATASE 90 U/L (40-136); BILIRUBIN,TOTAL 0.8 MG/DL (0.1-1.0); BUN/CREATININE RATIO 15; CALCIUM 9.7 MG/DL (8.5-10.1); CARBON DIOXIDE 27 MMOL/L (21-32); CHLORIDE 105 MMOL/L (98-107); CREATININE SERUM 0.79 MG/DL (0.60-1.30); GFR ESTIMATED > 60; GLUCOSE 96 MG/DL (70-105); POTASSIUM 3.9 MMOL/L (3.6-5.0); SODIUM 140 MMOL/L (135-145)
== END 2018-05-06 10:00 | disposition home or self-care (01) ==
LOC: ONC 10:14
PROVIDERS: ATTEND Internal Medicine Hematology & Oncology
DX: Z08 Encounter for follow-up examination after completed treatment for malignant neoplasm (principal); Z85.3 Personal history of malignant neoplasm of breast; Z92.3 Personal history of irradiation
CPT/HCPCS: 36415; 80053; 85025; 86300

== ENCOUNTER → 2018-04-22 | Outpatient (CLI) | payer MEDICARE, OTHER ==
[~2018-04-22] MED LIST changes: -BARIUM SUSPENSION 2.1% (VANILLA SILQ) 450 ML PO ONE; +CATHETER FLUSH 10 ML SYR IV PRN; +HYDR-34 PO; -HYDR-3816 PO
--- NOTE | 2018-04-22 12:59 | Diagnostic Imaging Report ---
PROCEDURE: CT chest with contrast only. TECHNIQUE: Multiple contiguous axial images were obtained through the chest after administration of intravenous contrast. DATE: April 22, 2018. COMPARISON: CT chest November 20, 2016. November 17, 2015. May 31, 2015. INDICATION: 73-year-old female, followup pulmonary nodules. FINDINGS: There are upper lobe predominant changes of centrilobular emphysema. There is a right upper lobe pulmonary nodule on axial image 35 which is unchanged since November 17, 2015. This is compatible with benign etiology. There is a 5 mm right middle lobe pulmonary nodule on axial image 43 which is also unchanged since this particular comparison exam. There is a 6 mm noncalcified right lower lobe pulmonary nodule stable in size on axial image 46. There is no identified new or enlarging pulmonary nodule. The central airways are patent. There is no identified pneumothorax. There is no pleural effusion. There is minimal dependent atelectasis. There is no additional focal airspace consolidation. There is no identified pulmonary embolus. The main pulmonary artery is normal in caliber. The heart is not enlarged. There is no pericardial effusion. There are atherosclerotic calcifications. There is ectasia of the infrarenal abdominal aorta which measures up to 2.2 x 2.4 cm in size on the most inferiorly located image. There is an aberrant right subclavian artery. There is compression of the esophagus between the aberrant artery and the trachea best illustrated on axial image 13. The vessel also demonstrates mild luminal narrowing at this site. There is no identified abnormally enlarged mediastinal, hilar, or axillary lymph node which meets CT size criteria for adenopathy. The patient is status post cholecystectomy. There is an exophytic left renal lesion on axial image 68 which measures 1.4 cm in size with internal attenuation diagnostic for renal cyst. Additional limited evaluation of the visualized portions of the upper abdomen is unremarkable. There are degenerative changes of the spine. There is no identified acute bony abnormality. IMPRESSION: CT CHEST. 1. Subcentimeter pulmonary nodules which are unchanged in size since at least November 17, 2015 compatible with benign etiology. No new or enlarging pulmonary nodule. No further followup is needed. 2. Mild upper lobe predominant changes of emphysema. 3. Aberrant right subclavian artery with compression of the esophagus between the aberrant vessel and trachea and mild luminal narrowing of the vessel at this site. Dictated by: Dictated on workstation # [id number]
--- NOTE | 2018-04-22 16:10 | Diagnostic Imaging Report ---
INDICATION: Routine screening. COMPARISON: 02/15/2017 and 02/14/2016. TECHNIQUE: 2D and 3D bilateral screening mammography was performed with CAD. FINDINGS: Scattered fibroglandular densities are identified bilaterally. Post therapeutic changes in the upper and outer aspect of the left breast at mid depth with associated calcifications appear stable. A benign nodular density in the outer right breast also appears stable. No new mass or malignant appearing microcalcifications are seen. The axillae are unremarkable apart from surgical clips in the left axilla. IMPRESSION: No mammographic features suspicious for malignancy are identified. ACR BI-RADS Category 2: Benign findings. Result letter will be mailed to the patient. Note: At least 10% of breast cancer is not imaged by mammography. Dictated by: Dictated on workstation # [id number]
== END ==
LOC: RAD 10:43
PROVIDERS: ATTEND Internal Medicine Hematology & Oncology
DX: Z12.31 Encounter for screening mammogram for malignant neoplasm of breast (principal); R91.8 Other nonspecific abnormal finding of lung field; J43.9 Emphysema, unspecified; K22.8 Other specified diseases of esophagus; Q27.8 Other specified congenital malformations of peripheral vascular system; Z90.49 Acquired absence of other specified parts of digestive tract
CPT/HCPCS: 71260; 77067

== ENCOUNTER 2018-05-06 10:01 | Outpatient (RCR) | payer MEDICARE, OTHER | END 2018-05-14 | disposition home or self-care (01) | LOC: ONC 10:01 | PROVIDERS: ATTEND Internal Medicine Hematology & Oncology | DX: Z08 Encounter for follow-up examination after completed treatment for malignant neoplasm (principal); Z85.3 Personal history of malignant neoplasm of breast; Z92.3 Personal history of irradiation | CPT/HCPCS: 99213 ==

== ENCOUNTER 2018-12-13 21:20 | Emergency (ER) | payer MEDICARE, OTHER ==
[~2018-12-13] VITALS: Ht 172.7 cm; Wt 77.4 kg
[2018-12-13] MEDS ORDERED: hydrALAZINE (APESOLINE) 20 MG/ML VIAL ONE (21:32)
[2018-12-13] MEDS ORDERED: FAMO20TA5 PO (21:41)
[2018-12-13 21:45] VITALS: BP 150/74
[2018-12-13] MEDS ORDERED: hydrALAZINE (APESOLINE) 20 MG/ML VIAL IV ONE (21:45)
[2018-12-13 21:46] LABS: BASOPHILS % (AUTO) 0 % (0-10); EOSINOPHILS # (AUTO) 0.2 10^3/uL (0.0-0.3); EOSINOPHILS % (AUTO) 1 % (0-10); HEMATOCRIT 46 % (35-52); HEMOGLOBIN 15.7 G/DL (11.5-16.0); LYMPHOCYTES # (AUTO) 3.8 X 10^3 (1.0-4.0); LYMPHOCYTES % (AUTO) 31 % (12-44); MEAN CORPUSCULAR HEMOGLOBIN 32 PG (25-34); MEAN CORPUSCULAR HGB CONC 34 G/DL (32-36); MEAN CORPUSCULAR VOLUME 92 FL (80-99); MEAN PLATELET VOLUME 8.8 FL (7.4-10.4); MONOCYTES % (AUTO) 8 % (0-12); NEUTROPHILS # (AUTO) 7.3 X 10^3 (1.8-7.8); NEUTROPHILS % (AUTO) 60 % (42-75); PLATELET COUNT 327 10^3/uL (130-400); RED CELL DISTRIBUTION WIDTH 13.8 % (10.0-14.5); WHITE BLOOD COUNT 12.2 10^3/uL (4.3-11.0)
--- NOTE | 2018-12-13 21:46 | ED Headache ---
General Chief Complaint: Cardiac/General Problems Stated Complaint: HIGH BP, FACE FEELING NUMB Nursing Triage Note: high blood pressure, facial numbness today Nursing Sepsis Screen: No Definite Risk History of Present Illness Date Seen by Provider: Dec 13, 2018 Time Seen by Provider: 21:27 Initial Comments Patient presents to ER by private conveyance with her and chief complaint of mild headache, both sides of her face feeling weird and she measured her blood pressure and found it to be high all within the past hour. She takes metoprolol twice a day for blood pressure and furosemide. She says she been taking these medications routinely as scheduled. She's never had a stroke or heart disease. She does not have thyroid disorder, diabetes, hypercholesterolemia but she does smoke about half a pack cigarettes per day. She's not had any cough or cold symptoms. No shortness of breath chest pain nausea or abdominal pain. No difficulty walking, facial droop or asymmetry per her or her . No difficulties with speech. 2 weeks ago she was diagnosed with UTI by her primary care doctor and started on Keflex. She believes she had an allergic reaction to the Keflex. She was having some swelling in her face but no swelling in her tongue, difficulty swallowing. She was put on steroids but then after she completed the steroids a day early she was feeling very on edge like she had a lot of nervous energy. Her doctor attributed this to the steroids. She has not been on them since Sunday, 3 days ago and still feels very on edge. She is concerned that maybe her high blood pressure and feelings today are associated with the steroids. Allergies and Home Medications Allergies Coded Allergies: Sulfa (Sulfonamide Antibiotics) (Unverified Allergy, Unknown, RASH, ) cephalexin (Unverified Allergy, Unknown, 12/21/10) Uncoded Allergies: STEROIDS (Allergy, Unknown, 12/21/10) Home Medications Duloxetine HCl 60 Mg Capsule.dr, 60 MG PO DAILY, (Reported) Furosemide 20 Mg Tablet, 20 MG PO DAILY, (Reported) Metoprolol Succinate 25 Mg Tab.sr.24h, 25 MG PO BID, (Reported) Patient Home Medication List Home Medication List Reviewed: Yes Review of Systems Review of Systems Constitutional: No chills, No diaphoresis Eyes: Denies Blindness, Denies Blurred Vision, Denies Drainage, Denies Decreased Acuity Ears, Nose, Mouth, Throat: denies ear pain, denies ear discharge Respiratory: No cough, No short of breath Cardiovascular: No chest pain, No edema Gastrointestinal: No abdominal pain, No constipation, No diarrhea, No nausea Genitourinary: No discharge, No dysuria Past Agesacj-Vqhvif-Bgzgzv Hx Patient Social History Alcohol Use: Denies Use Recreational Drug Use: No Smoking Status: Current Everyday Smoker Type Used: Cigarettes 2nd Hand Smoke Exposure: Yes Recent Foreign Travel: No Contact w/Someone Who Travel: No Recent Infectious Disease Expo: No Recent Hopitalizations: No Immunizations Up To Date Date of Pneumonia Vaccine: Aug 05, 2013 Date of Influenza Vaccine: Jul 15, 2015 Seasonal Allergies Seasonal Allergies: No Past Medical History Surgeries: Yes (dxls x3, A&P repair x2, ovaries removed, bladder sling, ) Breast Respiratory: No Cardiac: Yes Hypertension Neurological: No : No Reproductive Disorders: No [employer] History: Menopausal Genitourinary: Yes Bladder Infection Gastrointestinal: Yes (hx of polyps, hemorrhoids) Chronic Constipation Musculoskeletal: Yes Degenerate Disk Disease, Fibromyalgia, Chronic Back Pain Endocrine: No HEENT: No Cancer: Yes (BREAST CANCER DX 2003) Breast Psychosocial: Yes Anxiety Integumentary: Yes (SHINGLES ) Blood Disorders: No Physical Exam Vital Signs Vital Signs - First Documented 12/13/18 21:22 Temp 97.6 Pulse 65 Resp 16 B/P (MAP) 197/114 (141) Pulse Ox 97 O2 Delivery Room Air Capillary Refill : Less Than 3 Seconds Height, Weight, BMI Height: 5'8.00" Weight: 170lbs. 8.8oz. [id number]; 25.9 BMI Method:Stated General Appearance: WD/WN, mild distress HEENT: PERRL/EOMI, normal ENT inspection, TMs normal, pharynx normal Neck: non-tender, full range of motion, supple, normal inspection Cardiovascular: normal peripheral pulses, regular rate, rhythm, no edema Respiratory: chest non-tender, lungs clear, normal breath sounds, no respiratory distress, no accessory muscle use Gastrointestinal: normal bowel sounds, non tender, soft Extremities: normal range of motion, non-tender, normal inspection, normal capillary refill Psychiatric: alert, oriented x 3 Crainal Nerves: normal hearing, normal speech, PERRL Coordination/Gait: normal finger to nose, normal gait Motor/Sensory: no motor deficit, no sensory deficit, no pronator drift, other ( NIH of 0 points) Skin: normal color, warm/dry Progress/Results/Core Measures Results/Orders Lab Results Laboratory Tests Test 12/13/18 21:25 12/13/18 21:46 Range/Units White Blood Count 12.2 H 4.3-11.0 10^3/uL Red Blood Count 4.94 4.35-5.85 10^6/uL Hemoglobin 15.7 11.5-16.0 G/DL Hematocrit 46 35-52 % Mean Corpuscular Volume 92 80-99 FL Mean Corpuscular Hemoglobin 32 25-34 PG Mean Corpuscular Hemoglobin Concent 34 32-36 G/DL Red Cell Distribution Width 13.8 10.0-14.5 % Platelet Count 327 130-400 10^3/uL Mean Platelet Volume 8.8 7.4-10.4 FL Neutrophils (%) (Auto) 60 42-75 % Lymphocytes (%) (Auto) 31 12-44 % Monocytes (%) (Auto) 8 0-12 % Eosinophils (%) (Auto) 1 0-10 % Basophils (%) (Auto) 0 0-10 % Neutrophils # (Auto) 7.3 1.8-7.8 X 10^3 Lymphocytes # (Auto) 3.8 1.0-4.0 X 10^3 Monocytes # (Auto) 1.0 0.0-1.0 X 10^3 Eosinophils # (Auto) 0.2 0.0-0.3 10^3/uL Basophils # (Auto) 0.0 0.0-0.1 10^3/uL Erythrocyte Sedimentation Rate 6 0-30 MM/HR Prothrombin Time 13.2 12.2-14.7 SEC INR Comment 1.0 0.8-1.4 Activated Partial Thromboplast Time 30 24-35 SEC Sodium Level 139 135-145 MMOL/L Potassium Level 3.6 3.6-5.0 MMOL/L Chloride Level 101 98-107 MMOL/L Carbon Dioxide Level 26 21-32 MMOL/L Anion Gap 12 5-14 MMOL/L Blood Urea Nitrogen 15 7-18 MG/DL Creatinine 0.81 0.60-1.30 MG/DL Estimat Glomerular Filtration Rate > 60 BUN/Creatinine Ratio 19 Glucose Level 96 70-105 MG/DL Calcium Level 9.9 8.5-10.1 MG/DL Corrected Calcium 8.5-10.1 MG/DL Magnesium Level 2.6 H 1.8-2.4 MG/DL Total Bilirubin 0.5 0.1-1.0 MG/DL Aspartate Amino Transf (AST/SGOT) 18 5-34 U/L Alanine Aminotransferase (ALT/SGPT) 26 0-55 U/L Alkaline Phosphatase 96 40-136 U/L Troponin I < 0.028 <0.028 NG/ML C-Reactive Protein High Sensitivity 1.79 H 0.00-0.50 MG/DL Total Protein 7.8 6.4-8.2 GM/DL Albumin 4.6 H 3.2-4.5 GM/DL Glucometer 102 70-110 MG/DL My Orders Orders - ROBERT TRONCOSO Hydralazine Injection (Apresoline Inject (12/13/18 21:32) Ct Head Wo-R/O Stroke (12/13/18 21:35) Cbc With Automated Diff (12/13/18 21:35) Comprehensive Metabolic Panel (12/13/18 21:35) Hs C Reactive Protein (12/13/18 21:35) Magnesium (12/13/18 21:35) Protime With Inr (12/13/18 21:35) Partial Thromboplastin Time (12/13/18 21:35) Troponin I (12/13/18 21:35) Erythrocyte Sedimentation Rate (12/13/18 21:35) Accucheck Stat ONCE (12/13/18 21:35) Chest 1 View, Ap/Pa Only (12/13/18 21:35) Saline Lock/Iv-Start (12/13/18 21:35) Hydralazine Injection (Apresoline Inject (12/13/18 21:45) Medications Given in ED Current Medications Medications Dose Ordered Sig/Joslyn Route Start Time Stop Time Status Last Admin Dose Admin Hydralazine HCl 20 mg STK-MED ONCE .ROUTE 12/13/18 21:32 12/13/18 21:34 DC 12/13/18 21:33 20 MG Vital Signs/I&O 12/13/18 12/13/18 21:22 21:45 Temp 97.6 Pulse 65 65 Resp 16 16 B/P (MAP) 197/114 (141) 150/74 (99) Pulse Ox 97 100 O2 Delivery Room Air Room Air Blood Pressure Mean: 141 Progress Progress Note #1: Time: 21:45 Progress Note The patient appears to be having some hypertension related headache and a cephalopathy with her funny feeling in her face. Address this with some hydralazine and see if bring her blood pressure down does not improve her symptoms. We'll also obtain CT, labs, blood sugar. We've offered her something for her headache and she's declined at this time. EKG and troponin. Progress Note #2: Time: 22:26 Progress Note Patient's symptoms have improved mildly. Her headache is gone. She says she still feels a little funny and tingly on both sides of her face. No other neurologic changes. A complete reexamination was done and her NIH is still 0. Recommend she take some lisinopril 10-20 mg a day until she follows up with the primary care provider. Initial ECG Impression Date: Dec 13, 2018 Initial ECG Impression Time: 21:26 Initial ECG Rate: 60 Initial ECG Rhythm: Normal Sinus Initial ECG Intervals: Normal Initial ECG Impression: Normal Comment No ST elevation or depression. Diagnostic Imaging Diagonstic Imaging: Xray Plain Films/CT/US/NM/MRI: chest (1v) Comments No acute cardiopulmonary processes noted on a 1 view chest. Emphysematous changes that are chronic. NAME: CAMDEN CARLIN [employer] REC#: [id number] PT STATUS: REG ER : 1945 PHYSICIAN: ROBERT TRONCOSO MD ADMIT DATE: 12/13/18/ER Draft Date of Exam:12/13/18 CHEST 1 VIEW, AP/PA ONLY INDICATION: Elevated blood pressure. EXAMINATION: Single view of the chest was obtained. FINDINGS: The lungs are clear. The heart and vessels are normal. There is no effusion or pneumothorax. IMPRESSION: No acute appearing abnormality. Dictated on workstation # [id number] Dict: 12/13/182157 Trans: 12/13/182206 [facility] [id number] Interpreted by: AI SALMON Electronically signed by: Reviewed: Reviewed by Me Diagonstic Imaging: CT (noncontrast) Plain Films/CT/US/NM/MRI: head Comments NAME: CAMDEN CARLIN [facility] REC#: [id number] PHYSICIAN: ROBERT TRONCOSO MD CC: AI SALMON; ROBERT TRONCOSO Page 1 of 1 RADIOLOGY REPORT [facility] [place] [place] CC: AI SALMON; ROBERT TRONCOSO Page 1 of 1 RADIOLOGY REPORT NAME: CAMDEN CARLIN [facility] REC#: [id number] PT STATUS: REG ER : 1945 PHYSICIAN: ROBERT TRONCOSO MD ADMIT DATE: 12/13/18/ER Signed Date of Exam: 12/13/18 CT HEAD WO-R/O STROKE PROCEDURE: CT head wo r/o stroke. TECHNIQUE: Multiple contiguous axial images were obtained through the brain without the use of intravenous contrast. INDICATION: Hypertension FINDINGS: There is no hemorrhage, hydrocephalus, edema, mass, or mass effect. The basilar cisterns are patent. IMPRESSION: No hemorrhage, edema or acute finding. Dictated by: Dictated on workstation # [id number] Dict: 12/13/182152 Trans: 12/13/182199 Interpreted by: AI SALMON Electronically signed by: AI SALMON 12/13/182199 Reviewed: Reviewed by Me Departure Impression Primary Impression: Hypertensive encephalopathy Disposition: 01 HOME, SELF-CARE Condition: Improved Departure-Patient Inst. Decision time for Depature: 22:27 Referrals: CHRISTEN FLORES MD (PCP/Family) Primary Care Physician Patient Instructions: High Blood Pressure (DC) Add. Discharge Instructions: In addition to your metoprolol and furosemide you should start taking lisinopril. Lisinopril 10 mg every morning until you see your primary care provider. Check your blood pressure every day or 2 first thing in the morning before you have a cigarette or start your day. Record these blood pressures and take them with you to the primary care provider's office within the next week. If you take the lisinopril in your blood pressure is staying consistently above 180/100 you can double the lisinopril to 2 tablets in the morning. If you or anyone around she notices you're having slurred speech, facial droop, weakness numbness or difficulty with walking then you should immediately return to the nearest ER for reevaluation. If your blood pressure is low below 110/60 then you should not take the lisinopril. If you have headaches you can take 1000 mg of Tylenol and/or 600 mg of ibuprofen every 8 hours each. All discharge instructions reviewed with patient and/or family. Voiced understanding. Copy Copies To 1: CHRISTEN FLORES MD, TITUS J Dec 13, 2018 21:46
[2018-12-13 21:52] LABS: PROTHROMBIN TIME PATIENT 13.2 SEC (12.2-14.7)
--- NOTE | 2018-12-13 21:58 | Diagnostic Imaging Report ---
PROCEDURE: CT head wo r/o stroke. TECHNIQUE: Multiple contiguous axial images were obtained through the brain without the use of intravenous contrast. INDICATION: Hypertension FINDINGS: There is no hemorrhage, hydrocephalus, edema, mass, or mass effect. The basilar cisterns are patent. IMPRESSION: No hemorrhage, edema or acute finding. Dictated by: Dictated on workstation # [id number]
[2018-12-13 22:00] LABS: ALANINE AMINOTRANSFERASE 26 U/L (0-55); ALBUMIN 4.6 GM/DL (3.2-4.5); ALKALINE PHOSPHATASE 96 U/L (40-136); BILIRUBIN,TOTAL 0.5 MG/DL (0.1-1.0); BUN/CREATININE RATIO 19; CALCIUM 9.9 MG/DL (8.5-10.1); CARBON DIOXIDE 26 MMOL/L (21-32); CHLORIDE 101 MMOL/L (98-107); CREATININE SERUM 0.81 MG/DL (0.60-1.30); GFR ESTIMATED > 60; GLUCOSE 96 MG/DL (70-105); MAGNESIUM 2.6 MG/DL (1.8-2.4); POTASSIUM 3.6 MMOL/L (3.6-5.0); SODIUM 139 MMOL/L (135-145); TOTAL PROTEIN 7.8 GM/DL (6.4-8.2)
[2018-12-13 22:05] LABS: ERYTHROCYTE SEDIMENTATION RATE 6 MM/HR (0-30)
--- NOTE | 2018-12-13 22:07 | Diagnostic Imaging Report ---
INDICATION: Elevated blood pressure. EXAMINATION: Single view of the chest was obtained. FINDINGS: The lungs are clear. The heart and vessels are normal. There is no effusion or pneumothorax. IMPRESSION: Acute appearing abnormality. Dictated by: Dictated on workstation # [id number]
[2018-12-13] MEDS ORDERED: LISI10TA2 PO (22:31)
[2018-12-13 22:36] VITALS: BP 146/77
== END 2018-12-13 22:37 | disposition home or self-care (01) ==
LOC: EDUNIT# 21:20 → ER 21:23
DX: I67.4 Hypertensive encephalopathy (principal); I10 Essential (primary) hypertension; F41.9 Anxiety disorder, unspecified; F17.210 Nicotine dependence, cigarettes, uncomplicated; Z88.2 Allergy status to sulfonamides; Z86.19 Personal history of other infectious and parasitic diseases; Z88.1 Allergy status to other antibiotic agents; Z86.010 Personal history of colon polyps; Z85.3 Personal history of malignant neoplasm of breast; Z87.19 Personal history of other diseases of the digestive system; Z98.890 Other specified postprocedural states; Z88.8 Allergy status to other drugs, medicaments and biological substances; Z96.0 Presence of urogenital implants
CPT/HCPCS: 36415; 70450; 71045; 80053; 82962; 83735; 84484; 85025; 85610; 85652; 85730; 86141; 93005

== ENCOUNTER 2019-01-26 13:21 | Inpatient (IN) | payer MEDICARE, OTHER ==
[~2019-01-26] VITALS: Ht 172.7 cm; Wt 72.6 kg
[~2019-01-26 13:21] MED LIST changes: +FAMO20TA5 PO; +LISI10TA2 PO
[2019-01-26] MEDS ORDERED: fentaNYL INJECTION 100 MCG/2 ML AMP IVP ONE ×2 (13:30→14:30)
[2019-01-26] MEDS ORDERED: ONDANSETRON 4 MG/2 ML (SDV) Z0FRAN IVP ONE (13:30)
--- NOTE | 2019-01-26 13:32 | ED Lower Extremity ---
General Stated Complaint: RT HIP PAIN, HIT RT SIDE OF HEAD Source: patient, family Exam Limitations: no limitations History of Present Illness Date Seen by Provider: Jan 26, 2019 Time Seen by Provider: 13:27 Initial Comments 73-year-old white female presents after she stepped off a curb falling sustaining an injury to her right hip and striking the right side of her head. Patient has been unable to weight-bear due to pain in the right hip. She denies loss of consciousness, paresthesias, or weakness in the extremities or other remarkable injury in her fall. Patient is complaining of slight nausea. In addition to a right-sided headache patient's neck is also causing her some discomfort. The rest of the patient's back is not hurting. Patient denies trauma to the chest or abdomen. Allergies and Home Medications Allergies Coded Allergies: Sulfa (Sulfonamide Antibiotics) (Unverified Allergy, Unknown, RASH, ) amoxicillin (Unverified Allergy, Unknown, 01/26/19) cephalexin (Unverified Allergy, Unknown, 12/21/10) clavulanic acid (Unverified Allergy, Unknown, 01/26/19) levofloxacin (Unverified Allergy, Unknown, 01/26/19) metronidazole (Unverified Allergy, Unknown, 01/26/19) Uncoded Allergies: STEROIDS (Allergy, Unknown, 12/21/10) Home Medications Duloxetine HCl 60 Mg Capsule.dr, 60 MG PO DAILY, (Reported) Furosemide 20 Mg Tablet, 20 MG PO DAILY, (Reported) Lisinopril 10 Mg Tablet, 10 MG PO DAILY Prescribed by: ROBERT TRONCOSO on 12/13/182230 Metoprolol Succinate 25 Mg Tab.sr.24h, 25 MG PO BID, (Reported) Patient Home Medication List Home Medication List Reviewed: Yes Review of Systems Constitutional: No chills, No fever EENTM: see HPI, other (headache); No hearing loss, No blurred vision, No vision loss Respiratory: No cough Cardiovascular: No chest pain Gastrointestinal: No abdominal pain; nausea; No vomiting Genitourinary: no symptoms reported : No Musculoskeletal: see HPI; No back pain; joint pain (right hip) Skin: No change in color, No rash Psychiatric/Neurological: No Symptoms Reported Past Wzgxzrs-Itjkqp-Vliiwx Hx Past Med/Social Hx: Reviewed Nursing Past Med/Soc Hx Patient Social History Type Used: Cigarettes 2nd Hand Smoke Exposure: Yes Recent Foreign Travel: No Contact w/Someone Who Travel: No Recent Hopitalizations: No Immunizations Up To Date Date of Pneumonia Vaccine: Aug 05, 2013 Date of Influenza Vaccine: Jul 15, 2015 Seasonal Allergies Seasonal Allergies: No Past Medical History Surgeries: Yes (dxls x3, A&P repair x2, ovaries removed, bladder sling, ) Breast Respiratory: No Cardiac: Yes Hypertension Neurological: No Reproductive Disorders: No [employer] History: Menopausal Genitourinary: Yes Bladder Infection Gastrointestinal: Yes (hx of polyps, hemorrhoids) Chronic Constipation Musculoskeletal: Yes Degenerate Disk Disease, Fibromyalgia, Chronic Back Pain Endocrine: No HEENT: No Cancer: Yes (BREAST CANCER DX 2003) Breast Psychosocial: Yes Anxiety Integumentary: Yes (SHINGLES ) Blood Disorders: No Physical Exam Vital Signs Vital Signs - First Documented 01/26/19 13:21 Temp 98.5 Pulse 60 Resp 15 B/P (MAP) 170/87 (114) Pulse Ox 97 O2 Delivery Room Air Capillary Refill : Height, Weight, BMI Height: 5'8.00" Weight: 170lbs. 8.8oz. 77.157375fa; 25.9 BMI Method:Stated General Appearance: WD/WN, moderate distress HEENT: other (tenderness over the right side of the Foot) Neck: supple, other Cardiovascular: regular rate, rhythm, no murmur Respiratory: lungs clear Gastrointestinal: normal bowel sounds, non tender, soft Back: normal inspection Hips: right hip limited range of motion, right hip pain Neurologic/Tendon: normal sensation, normal motor functions Neurologic/Psychiatric: no motor/sensory deficits, alert, normal mood/affect, oriented x 3 Skin: normal color, warm/dry Progress/Results/Core Measures Results/Orders Lab Results Laboratory Tests Test 01/26/19 13:34 01/26/19 15:55 Range/Units White Blood Count 10.3 4.3-11.0 10^3/uL Red Blood Count 4.66 4.35-5.85 10^6/uL Hemoglobin 15.0 11.5-16.0 G/DL Hematocrit 43 35-52 % Mean Corpuscular Volume 93 80-99 FL Mean Corpuscular Hemoglobin 32 25-34 PG Mean Corpuscular Hemoglobin Concent 35 32-36 G/DL Red Cell Distribution Width 13.9 10.0-14.5 % Platelet Count 273 130-400 10^3/uL Mean Platelet Volume 8.5 7.4-10.4 FL Neutrophils (%) (Auto) 67 42-75 % Lymphocytes (%) (Auto) 25 12-44 % Monocytes (%) (Auto) 7 0-12 % Eosinophils (%) (Auto) 1 0-10 % Basophils (%) (Auto) 0 0-10 % Neutrophils # (Auto) 6.8 1.8-7.8 X 10^3 Lymphocytes # (Auto) 2.6 1.0-4.0 X 10^3 Monocytes # (Auto) 0.7 0.0-1.0 X 10^3 Eosinophils # (Auto) 0.1 0.0-0.3 10^3/uL Basophils # (Auto) 0.0 0.0-0.1 10^3/uL Sodium Level 137 135-145 MMOL/L Potassium Level 3.7 3.6-5.0 MMOL/L Chloride Level 101 98-107 MMOL/L Carbon Dioxide Level 23 21-32 MMOL/L Anion Gap 13 5-14 MMOL/L Blood Urea Nitrogen 12 7-18 MG/DL Creatinine 0.78 0.60-1.30 MG/DL Estimat Glomerular Filtration Rate > 60 BUN/Creatinine Ratio 15 Glucose Level 105 70-105 MG/DL Calcium Level 9.9 8.5-10.1 MG/DL Corrected Calcium 9.7 8.5-10.1 MG/DL Total Bilirubin 0.6 0.1-1.0 MG/DL Aspartate Amino Transf (AST/SGOT) 18 5-34 U/L Alanine Aminotransferase (ALT/SGPT) 23 0-55 U/L Alkaline Phosphatase 83 40-136 U/L Total Protein 7.0 6.4-8.2 GM/DL Albumin 4.3 3.2-4.5 GM/DL Urine Color YELLOW Urine Clarity CLEAR Urine pH 7 5-9 Urine Specific [place] 1.005 L 1.016-1.022 Urine Protein NEGATIVE NEGATIVE Urine Glucose (UA) NEGATIVE NEGATIVE Urine Ketones NEGATIVE NEGATIVE Urine Nitrite NEGATIVE NEGATIVE Urine Bilirubin NEGATIVE NEGATIVE Urine Urobilinogen NORMAL NORMAL MG/DL Urine Leukocyte Esterase NEGATIVE NEGATIVE Urine RBC (Auto) 2+ H NEGATIVE Urine RBC NONE /HPF Urine WBC NONE /HPF Urine Crystals NONE /LPF Urine Bacteria NEGATIVE /HPF Urine Casts NONE /LPF Urine Mucus NEGATIVE /LPF Urine Culture Indicated NO My Orders Orders - SUSAN HERNANDEZ MD Hip, Right, 2 Views (01/26/19 13:23) Chest 1 View, Ap/Pa Only (01/26/19 13:23) Ekg Tracing (01/26/19 13:23) Cbc With Automated Diff (01/26/19 13:23) Comprehensive Metabolic Panel (01/26/19 13:23) Ua Culture If Indicated (01/26/19 13:23) Ns Iv 1000 Ml (Sodium Chloride 0.9%) (01/26/19 13:30) Ondansetron Injection (Zofran Injectio (01/26/19 13:30) Fentanyl Injection (Sublimaze Injection (01/26/19 13:30) Ct Head/Cervical Spine Wo (01/26/19 13:23) Fentanyl Injection (Sublimaze Injection (01/26/19 14:30) Ct Extremity Lower Right Wo (01/26/19 14:45) Morphine Injection (Morphine Injection (01/26/19 15:15) Morphine Injection (Morphine Injection (01/26/19 15:02) Medications Given in ED Current Medications Medications Dose Ordered Sig/Joslyn Route Start Time Stop Time Status Last Admin Dose Admin Fentanyl Citrate 50 mcg ONCE ONCE IVP 01/26/19 13:30 01/26/19 13:31 DC 01/26/19 13:34 50 MCG Fentanyl Citrate 50 mcg ONCE ONCE IVP 01/26/19 14:30 01/26/19 14:32 DC 01/26/19 14:38 50 MCG Morphine Sulfate 5 mg ONCE ONCE IVP 01/26/19 15:15 01/26/19 15:16 DC 01/26/19 15:07 5 MG Ondansetron HCl 4 mg ONCE ONCE IVP 01/26/19 13:30 01/26/19 13:31 DC 01/26/19 13:34 4 MG Vital Signs/I&O 01/26/19 13:21 Temp 98.5 Pulse 60 Resp 15 B/P (MAP) 170/87 (114) Pulse Ox 97 O2 Delivery Room Air Progress Progress Note : Time: 16:19 Progress Note The patient was given fentanyl 50 g twice without significant improvement in her pain. She was also given 5 mg of morphine with significant improvement in her pain. X-rays and CT demonstrated a fracture of the right humeral neck. CT of the head and neck failed to show evidence of acute pathology. Telephone consultation was undertaken with Dr. Rodríguez who will perform the patient's surgery tonight as the patient has had no significant food or fluids for 6 hours. I spoke with Dr. Nunes, trauma surgeon. He stated that the patient could be admitted to hospitalist and orthpedics. Dr. Rose was kind enough to admit the patient. Orders have been written and the patient will be transferred to the floor. Departure Communication (Admissions) Time/Spoke to Admitting Phy: 16:20 Dr. Rose. Time/Spoke to Consulting Phy: 16:20 Dr. Rodríguez. Impression Primary Impression: Hip fracture Qualified Codes: S72.001A - Fracture of unspecified part of neck of right femur, initial encounter for closed fracture Disposition: ADMITTED INPATIENT Condition: Improved Admissions Decision to Admit Reason: Admit from ER (Trauma) Decision to Admit/Date: Jan 26, 2019 Time/Decision to Admit Time: 16:21 Departure-Patient Inst. Referrals: CHRISTEN FLORES MD (PCP/Family) Primary Care Physician SUSAN HERNANDEZ MD Jan 26, 2019 13:32
[2019-01-26] MEDS: NS IV 1000 ML 1,000 ML IV SCH ×3 (13:34→23:51)
[2019-01-26 13:43] LABS: BASOPHILS % (AUTO) 0 % (0-10); EOSINOPHILS # (AUTO) 0.1 10^3/uL (0.0-0.3); EOSINOPHILS % (AUTO) 1 % (0-10); HEMATOCRIT 43 % (35-52); LYMPHOCYTES # (AUTO) 2.6 X 10^3 (1.0-4.0); LYMPHOCYTES % (AUTO) 25 % (12-44); MEAN CORPUSCULAR HEMOGLOBIN 32 PG (25-34); MEAN CORPUSCULAR HGB CONC 35 G/DL (32-36); MEAN CORPUSCULAR VOLUME 93 FL (80-99); MEAN PLATELET VOLUME 8.5 FL (7.4-10.4); MONOCYTES # (AUTO) 0.7 X 10^3 (0.0-1.0); MONOCYTES % (AUTO) 7 % (0-12); NEUTROPHILS # (AUTO) 6.8 X 10^3 (1.8-7.8); NEUTROPHILS % (AUTO) 67 % (42-75); PLATELET COUNT 273 10^3/uL (130-400); RED CELL DISTRIBUTION WIDTH 13.9 % (10.0-14.5); WHITE BLOOD COUNT 10.3 10^3/uL (4.3-11.0)
[2019-01-26 14:00] LABS: ALANINE AMINOTRANSFERASE 23 U/L (0-55); ALBUMIN 4.3 GM/DL (3.2-4.5); ALKALINE PHOSPHATASE 83 U/L (40-136); BILIRUBIN,TOTAL 0.6 MG/DL (0.1-1.0); BUN/CREATININE RATIO 15; CALCIUM 9.9 MG/DL (8.5-10.1); CARBON DIOXIDE 23 MMOL/L (21-32); CHLORIDE 101 MMOL/L (98-107); CREATININE SERUM 0.78 MG/DL (0.60-1.30); GFR ESTIMATED > 60; GLUCOSE 105 MG/DL (70-105); POTASSIUM 3.7 MMOL/L (3.6-5.0); SODIUM 137 MMOL/L (135-145)
--- OUTSIDE RECORDS SUMMARY | 2019-01-26 14:10 | XMS REPORT | Clinical Summary ---
Author Author [facility] Address Unknown Phone Unavailable Care Team Providers Care Side Puller Name Role Phone PP Unavailable Allergies Comments Active Allergy Reactions Severity Noted Date HIVES KEFLEX Cephalexin Monohydrate RASH Sulfadiazine Medications End Date Status Medication Sig Dispensed Refills Start Date Active Cholecalciferol (D 1000) One orally 0 0 1000 UNITS CAPS daily ( Pt. 10 has not taken this all summer) Active Calcium Carbonate-Vit One orally 0 0 D-Min (CALTRATE 600+D three times 9 PLUS) 600-800 MG-UNIT daily (per CHEW pt.) Active furosemide (LASIX) 20 MG take 1 tablet 90 0 tablet (20MG) by 0 ORAL route every day Active .reconcile (MEDICATION No Sig 1 0 LIST IMPORTED) 3 Active Problems Problem Noted Date Malignant neoplasm of breast (female), unspecified site Senile nuclear sclerosis Other chronic allergic conjunctivitis Tear film insufficiency, unspecified Social History Date Tobacco Use Types Packs/Day Years Used Current Every Day Smoker Comments: Smoking History Packs/day: Unknown/Cigarettes/1/2 pack Sex Assigned at Date Recorded Not on file Industry Job Start Date Occupation Not on file Not on file Not on file Travel End Travel History Travel Start No recent travel history available. Last Filed Vital Signs Time Taken Vital Sign Reading 08/01/2010 11:16 AM CDT Blood Pressure 156/90 - Pulse - - Temperature - - Respiratory Rate - - Oxygen Saturation - - Inhaled Oxygen - Concentration 08/01/2010 11:16 AM CDT Weight 81.4 kg (179 lb 8 oz) 05/30/2010 3:32 PM CDT Height 172 cm (5' 7.7") 05/30/2010 3:32 PM CDT Body Mass Index 27.54 Plan of Treatment Health Maintenance Due Date Last Done Comments Hepatitis C Screening 1945 DTaP,Tdap,and Td Vaccines 1966 (1 - Tdap) Zoster Recombinant 1997 Vaccine (RZV,Shingrix) ( of 2 - [facility] 2 Dose Standard) Breast Cancer 02/01/2012 01/31/2010, 01/31/2010, 01/25/2009 Screening-Mammogram Pneumo-Adult (1 of 2 - 02/24/2012 PCV13) Influenza Vaccine (Season 06/15/2019 Ended) Colon Cancer Screening 05/30/2020 05/30/2010, 06/03/2008 Results Not on filefrom Last 3 Months Advance Directives Patient has advance care planning documents on file. For more information, please contact: [facility] [address] [address]
--- OUTSIDE RECORDS SUMMARY | 2019-01-26 14:16 | XMS REPORT | CCD ---
Author Author Aviva Patton Organization [facility] Address [address] [place] [address] Phone Care Team Providers Care Carbon Rod Inserter Name Role Phone [facility] Unavailable CCM Unavailable Summary Purpose Interface Exchange Insurance Providers Payer name Policy type / Coverage type Covered constitution party ID Effective Begin Date Effective End Date WPS Medicare Part B Medicare Part B [id number] Unknown FOR LIFE WPS Medicare Part B [id number] Unknown Family history Mother Diagnosis Age At Onset Myocardial infarction Unknown Father Diagnosis Age At Onset Cancer Unknown bladder cancer Unknown Myocardial infarction Unknown Brother Diagnosis Age At Onset Myocardial infarction Unknown Social History Social History Element Codes Description Effective Dates Marital status Unknown 02/02/[address]: 51773379 Current every day smoker 02/02/2016 Number of children Unknown 2 sons living and well 03/20/2012 Living arrangements Unknown House 03/20/2012 Employment Unknown Retired 03/20/2012 Number of years using tobacco Unknown 40 03/20/2012 Number of cigarettes/day Unknown 10 ( Half a pack) 03/20/[address]: 653616815 Never drinks alcohol 03/20/2012 Allergies, Adverse Reactions, Alerts Substance Reaction Codes Entered Date Inactivated Date Status levaquin tendonitis Unknown 12/06/2018 No Inactive Date Active * NO KNOWN FOOD ALLERGIES Unknown 07/01/2012 No Inactive Date Active cephalexin RxNorm: 2231 04/19/2012 No Inactive Date Active AUGMENTIN angioedema, RxNorm: 452709 12/06/2018 No Inactive Date Active SULFA(SULFONAMIDE ANTIBIOTICS) Unknown 04/19/2012 No Inactive Date Active METRONIDAZOLE Unknown 01/22/2018 No Inactive Date Active Past Medical History Illness Codes Condition Status Onset Date Resolved Date Chondrocostal junction syndrome [Tietze] ICD-9: 733.6 ICD-10: M94.0 Active 01/13/2019 Unknown Essential (primary) hypertension ICD-9: 401.9 ICD-10: I10 Active 07/23/2014 Unknown Tobacco use ICD-9: 305.1 ICD-10: Z72.0 Active 11/26/2014 Unknown Adverse effect of unspecified drugs, medicaments and biological substances, initial encounter ICD-9: 995.27 ICD-10: T50.905A Active 12/06/2018 Unknown Other urticaria ICD-9 : 909.3 ICD-10: L50.8 Active 12/06/2018 Unknown Dysuria ICD-9: 788.1 ICD-10: R30.0 Active 12/12/2016 Unknown Personal history of urinary (tract) infections ICD-9: V13.02 ICD-10: Z87.440 Active 11/25/2018 Unknown Diverticulitis of large intestine without perforation or abscess without bleeding ICD-9: 562.11 ICD-10: K57.32 Active 10/14/2018 Unknown Encounter for general adult medical examination with abnormal findings ICD-9: V70.0 ICD-10: Z00.01 Active 08/22/2017 Unknown Encounter for immunization ICD-9: V05.9 ICD-10: Z23 Active 06/18/2018 Unknown 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 ICD-10: K59.1 Active 06/19/2017 Unknown Insect bite (nonvenomous) of abdominal wall, initial encounter ICD-9: 911.4 ICD-10: S30.861A Active 03/04/2018 Unknown Rash and other nonspecific skin eruption ICD-9: 782.1 ICD-10: R21 Active 08/15/2017 Unknown Epigastric pain ICD-9 : 789.06 ICD-10: R10.13 Active 02/13/2017 Unknown Low back pain ICD-9: 724.2 ICD-10: M54.5 Active 02/02/2017 Unknown Encounter for immunization ICD-9: V04.81 ICD-10: Z23 Active 07/01/2012 Unknown Other acute sinusitis ICD-9: 461.9 ICD-10: J01.80 Active 06/20/2016 Unknown Other allergic rhinitis ICD-9: 477.8 ICD-10: J30.89 Active 06/20/2016 Unknown Major depressive disorder, single episode, unspecified ICD-9: 311 ICD-10: F32.9 Active 01/28/2014 Unknown Polymyalgia rheumatica ICD-9: 725 ICD-10: M35.3 Active 07/23/2014 Unknown Hyperpigmented skin lesion ICD-9: 709.00 Active 02/02/2015 Unknown Smoking ICD-9: 305.1 Active 11/26/2014 Unknown Sacroiliitis ICD-9: 720.2 Active 09/15/2014 Unknown Hip pain ICD-9: 719.45 Active 08/13/2014 Unknown Sacroiliac pain ICD-9 : 724.6 Active 08/13/2014 Unknown ACUTE SINUSITIS ICD-9 : 461.9 Active 08/03/2014 Unknown ALLERGIC RHINITIS ICD- 9: 477.9 Active 08/03/2014 Unknown ESSENTIAL HYPERTENSION ICD-9: 401.9 Active 07/23/2014 Unknown POLYMYALGIA RHEUMATICA ICD-9: 725 Active 07/23/2014 Unknown ACUTE MAXILLARY SINUSITIS ICD-9: 461.0 Active 04/27/2014 Unknown BPPV (benign paroxysmal positional vertigo) ICD-9: 386.11 Active 04/27/2014 Unknown Depression Unknown Active 01/28/2014 Unknown DEPRESSIVE DISORDER NEC ICD-9: 311 Active 01/28/2014 Unknown Blurry vision, bilateral ICD-9: 368.8 Active 01/05/2014 Unknown VACCIN STREP PNEUMONIAE ICD-9: V03.82 Active 07/31/2013 Unknown CHRONIC INTERSTITIAL CYSTITIS ICD-9: 595.1 Active 04/29/2013 Unknown History of urinary tract infection ICD-9: V13.02 Active 2012 Unknown Hyperlipidemia Unknown Active 02/06/2013 Unknown HYPERLIPIDEMIA ICD-9: 272.4 Active 02/06/2013 Unknown Irritated nevus of neck ICD-9: 216.4 Active 02/06/2013 Unknown ACUTE URI ICD-9: 465.9 Active 11/05/2012 Unknown COUGH ICD-9: 786.2 Active 11/05/2012 Unknown Hematuria ICD-9: 599.70 Active 10/31/2012 Unknown Dysuria ICD-9: 788.1 Active 09/25/2012 Unknown Microscopic hematuria ICD-9: 599.72 Active 08/20/2012 Unknown Abdominal pain ICD-9: 789.00 Active 07/16/2012 Unknown Constipation - functional ICD-9: 564.09 Active 07/01/2012 Unknown VACCIN FOR INFLUENZA ICD-9: V04.81 Active 07/01/2012 Unknown Fatigue ICD-9: 780.79 Active 04/19/2012 Unknown Mouth dryness ICD-9: 527.7 Active 04/15/2012 Unknown Generally unwell ICD-9 : 799.89 Active 04/04/2012 Unknown MYALGIA AND MYOSITIS ICD-9: 729.1 Active 04/04/2012 Unknown Urinary tract infection ICD-9: 599.0 Active 04/04/2012 Unknown Neck pain ICD-9: 723.1 Active 04/01/2012 Unknown Unsteady gait ICD-9: 781.2 Active 04/01/2012 Unknown Heart murmur Unknown Active 03/20/2012 Unknown Hypertension Unknown Active 03/20/2012 Unknown Arm pain ICD-9: 729.5 Active 03/20/2012 Unknown HEADACHE ICD-9: 784.0 Active 03/20/2012 Unknown Pericardial rub ICD-9 : 785.3 Active 03/20/2012 Unknown Breast cancer Unknown Active 08/29/2011 Unknown Problems Condition Codes Effective Dates Condition Status Chondrocostal junction syndrome [Tietze] ICD-9: 733.6 ICD-10: M94.0 01/13/2019 Active Essential (primary) hypertension ICD-9: 401.9 ICD-10: I10 07/23/2014 Active Tobacco use ICD-9: 305.1 ICD-10: Z72.0 11/26/2014 Active Adverse effect of unspecified drugs, medicaments and biological substances, initial encounter ICD-9: 995.27 ICD-10: T50.905A 12/06/2018 Active Other urticaria ICD-9 : 909.3 ICD-10: L50.8 12/06/2018 Active Dysuria ICD-9: 788.1 ICD-10: R30.0 12/12/2016 Active Personal history of urinary (tract) infections ICD-9: V13.02 ICD-10: Z87.440 11/25/2018 Active Diverticulitis of large intestine without perforation or abscess without bleeding ICD-9: 562.11 ICD-10: K57.32 10/14/2018 Active Encounter for general adult medical examination with abnormal findings ICD-9: V70.0 ICD-10: Z00.01 08/22/2017 Active Encounter for immunization ICD-9: V05.9 ICD-10: Z23 06/18/2018 Active 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 ICD-10: K59.1 06/19/2017 Active Insect bite (nonvenomous) of abdominal wall, initial encounter ICD-9: 911.4 ICD-10: S30.861A 03/04/2018 Active Rash and other nonspecific skin eruption ICD-9: 782.1 ICD-10: R21 08/15/2017 Active Epigastric pain ICD-9 : 789.06 ICD-10: R10.13 02/13/2017 Active Low back pain ICD-9: 724.2 ICD-10: M54.5 02/02/2017 Active Encounter for immunization ICD-9: V04.81 ICD-10: Z23 07/01/2012 Active Other acute sinusitis ICD-9: 461.9 ICD-10: J01.80 06/20/2016 Active Other allergic rhinitis ICD-9: 477.8 ICD-10: J30.89 06/20/2016 Active Major depressive disorder, single episode, unspecified ICD-9: 311 ICD-10: F32.9 01/28/2014 Active Polymyalgia rheumatica ICD-9: 725 ICD-10: M35.3 07/23/2014 Active Hyperpigmented skin lesion ICD-9: 709.00 02/02/2015 Active Smoking ICD-9: 305.1 11/26/2014 Active Sacroiliitis ICD-9: 720.2 09/15/2014 Active Hip pain ICD-9: 719.45 08/13/2014 Active Sacroiliac pain ICD-9 : 724.6 08/13/2014 Active ACUTE SINUSITIS ICD-9 : 461.9 08/03/2014 Active ALLERGIC RHINITIS ICD- 9: 477.9 08/03/2014 Active ESSENTIAL HYPERTENSION ICD-9: 401.9 07/23/2014 Active POLYMYALGIA RHEUMATICA ICD-9: 725 07/23/2014 Active ACUTE MAXILLARY SINUSITIS ICD-9: 461.0 04/27/2014 Active BPPV (benign paroxysmal positional vertigo) ICD-9: 386.11 04/27/2014 Active Depression Unknown 01/28/2014 Active DEPRESSIVE DISORDER NEC ICD-9: 311 01/28/2014 Active Blurry vision, bilateral ICD-9: 368.8 01/05/2014 Active VACCIN STREP PNEUMONIAE ICD-9: V03.82 07/31/2013 Active CHRONIC INTERSTITIAL CYSTITIS ICD-9: 595.1 04/29/2013 Active History of urinary tract infection ICD-9: V13.02 04/14/2013 Active Hyperlipidemia Unknown 02/06/2013 Active HYPERLIPIDEMIA ICD-9: 272.4 02/06/2013 Active Irritated nevus of neck ICD-9: 216.4 02/06/2013 Active ACUTE URI ICD-9: 465.9 11/05/2012 Active COUGH ICD-9: 786.2 11/05/2012 Active Hematuria ICD-9: 599.70 10/31/2012 Active Dysuria ICD-9: 788.1 09/25/2012 Active Microscopic hematuria ICD-9: 599.72 08/20/2012 Active Abdominal pain ICD-9: 789.00 07/16/2012 Active Constipation - functional ICD-9: 564.09 07/01/2012 Active VACCIN FOR INFLUENZA ICD-9: V04.81 07/01/2012 Active Fatigue ICD-9: 780.79 04/19/2012 Active Mouth dryness ICD-9: 527.7 04/15/2012 Active Generally unwell ICD-9 : 799.89 04/04/2012 Active MYALGIA AND MYOSITIS ICD-9: 729.1 04/04/2012 Active Urinary tract infection ICD-9: 599.0 04/04/2012 Active Neck pain ICD-9: 723.1 04/01/2012 Active Unsteady gait ICD-9: 781.2 04/01/2012 Active Heart murmur Unknown 03/20/2012 Active Hypertension Unknown 03/20/2012 Active Arm pain ICD-9: 729.5 03/20/2012 Active HEADACHE ICD-9: 784.0 03/20/2012 Active Pericardial rub ICD-9 : 785.3 03/20/2012 Active Breast cancer Unknown 08/29/2011 Active Medications Medication Codes Instructions Start Date Stop Date Status Fill Instructions lisinopril 20 mg tablet RxNorm: 531642 1 Tablet(s) PO BID 01/1301/07/2020 Active naproxen 500 mg tablet RxNorm: 545923 1 Tablet(s) PO BID 201803/13/2019 Active lisinopril 10 mg tablet RxNorm: 464727 1 Tablet(s) PO BID 12/1612/15/2018 Inactive lisinopril 10 mg tablet RxNorm: 101132 1 Tablet(s) PO BID 12/1601/12/2019 Inactive Toprol XL 25 mg tablet,extended release RxNorm: 482389 TAKE 1 TABLET TWICE A DAY 12/09/2018 No Stop Date Active Cymbalta 60 mg capsule,delayed release RxNorm: 824342 TAKE 1 CAPSULE DAILY 12/09/2018 No Stop Date Active prednisone 20 mg tablet RxNorm: 581001 2 Tablet(s) PO daily 12/10/2018 Inactive Kenalog 40 mg/mL suspension for injection RxNorm: 8252945 1.5 Milliliter(s) Inj 12/06/2018 12/06/2018 Inactive Augmentin 875 mg-125 mg tablet RxNorm: 316713 1 Tablet(s) PO BID 11/26/2018 12/02/2018 Inactive Levaquin 500 mg tablet RxNorm: 734010 1 Tablet(s) PO daily 08/201911/29/2018 Inactive furosemide 20 mg tablet RxNorm: 228913 TAKE 1 TABLET DAILY No Stop Date Active Augmentin 875 mg-125 mg tablet RxNorm: 830602 1 Tablet(s) PO BID 10/14/2018 10/23/2018 Inactive doxycycline hyclate 100 mg tablet RxNorm: 425428 1 Tablet(s) PO BID 03/04/2018 03/10/2018 Inactive Pepcid AC 20 mg tablet RxNorm: 568174 1 Tablet(s) PO BID 201704/16/2019 Active pt requested a 90 day supply please Pepcid AC 20 mg tablet RxNorm: 359948 1 Tablet(s) PO BID 201701/21/2018 Inactive Pepcid AC 20 mg tablet RxNorm: 050718 1 Tablet(s) PO BID 201701/17/2018 Inactive Pepcid AC 20 mg tablet RxNorm: 239346 1 Tablet(s) PO BID 201712/18/2017 Inactive Flagyl 500 mg tablet RxNorm: 367048 1 Tablet(s) PO TID 201712/28/2017 Inactive Cymbalta 60 mg capsule,delayed release RxNorm: 315231 1 CAPSULE(S) PO DAILY 1 CAPSULE(S) PO DAILY 12/14/2017 12/08/2018 Inactive Toprol XL 25 mg tablet,extended release RxNorm: 010980 1 TABLET(S) PO BID 12/14/2017 12/08/2018 Inactive furosemide 20 mg tablet RxNorm: 183666 TAKE 1 TABLET DAILY 11/06/2018 Inactive Kenalog 40 mg/mL suspension for injection RxNorm: 1397103 1.5 Milliliter(s) Inj 08/15/2017 08/15/2017 Inactive triamcinolone acetonide 0.025 % topical cream RxNorm: 7437852 1 Application TOP BID as needed 08/15/2017 08/19/2017 Inactive prednisone 20 mg tablet RxNorm: 831855 2 Tablet(s) PO daily 10/201608/19/2017 Inactive Flagyl 500 mg tablet RxNorm: 688506 1 Tablet(s) PO TID 201608/10/2017 Inactive Flagyl 500 mg tablet RxNorm: 730502 1 Tablet(s) PO TID 201607/31/2017 Inactive Questran 4 gram powder for susp in a packet RxNorm: 266226 1/2 packet PO QID 06/19/2017 01/14/2018 Inactive Levsin/SL 0.125 mg sublingual tablet RxNorm: 9105985 1 Tablet(s) SL QID as needed abdominal pain or abdominal spasms 02/13/2017 08/19/2017 Inactive cyclobenzaprine 5 mg tablet RxNorm: 019475 1 Tablet(s) PO TID as needed 02/08/2017 02/12/2017 Inactive cyclobenzaprine 5 mg tablet RxNorm: 986027 1 Tablet(s) PO TID as needed 02/05/2017 02/07/2017 Inactive Cipro 250 mg tablet RxNorm: 087092 1 Tablet(s) PO BID 201602/11/2017 Inactive Cymbalta 60 mg capsule,delayed release RxNorm: 633644 1 Capsule(s) PO daily 1 CAPSULE(S) PO DAILY 12/18/2016 12/12/2017 Inactive Toprol XL 25 mg tablet,extended release RxNorm: 756092 1 Tablet(s) PO BID 12/18/2016 12/12/2017 Inactive [SAVINGS FOR NON-COVERED DRUGS -- BIN:970852, PCN: ASPROD1, Group: XXXXX, ID# [id number], Questions: . THIS IS NOT INSURANCE.] ciprofloxacin 500 mg tablet RxNorm: 974188 1 Tablet(s) PO BID 12/12/2016 12/17/2016 Inactive furosemide 20 mg tablet RxNorm: 078183 TAKE 1 TABLET DAILY 12/201611/11/2017 Inactive levofloxacin 500 mg tablet RxNorm: 257291 1 Tablet(s) PO daily 06/21/2016 06/25/2016 Inactive Kenalog 40 mg/mL suspension for injection RxNorm: 9873275 Milliliter(s) Inj 06/21/2016 06/21/2016 Inactive hydrocodone 5 mg-acetaminophen 325 mg tablet RxNorm: 710816 1-2 Tablet(s) PO Q4- 6H as needed 11/03/2015 02/01/2016 Inactive Cymbalta 60 mg capsule,delayed release RxNorm: 000242 1 Capsule(s) PO daily 1 CAPSULE(S) PO DAILY 11/03/2015 12/17/2016 Inactive furosemide 20 mg tablet RxNorm: 309622 Tablet(s) TAKE 1 TABLET ONCE DAILY 11/03/2015 11/16/2016 Inactive Toprol XL 25 mg tablet,extended release RxNorm: 357667 2 Tablet(s) PO daily 11/03/2015 12/17/2016 Inactive [SAVINGS FOR NON-COVERED DRUGS -- BIN:369252, PCN: ASPROD1, Group: XXXXX, ID# [id number], Questions: . THIS IS NOT INSURANCE.] Cymbalta 60 mg capsule,delayed release RxNorm: 819337 1 Capsule(s) PO daily 1 CAPSULE(S) PO DAILY 05/31/2015 11/02/2015 Inactive Toprol XL 25 mg tablet,extended release RxNorm: 634077 2 Tablet(s) PO daily 01/25/2015 11/02/2015 Inactive [SAVINGS FOR NON-COVERED DRUGS -- BIN:021931, PCN: ASPROD1, Group: XXXXX, ID# [id number], Questions: . THIS IS NOT INSURANCE.] Voltaren 1 % topical gel RxNorm: 000196 2 Gram(s) TOP QID to hands 01/25/2015 05/24/2015 Inactive [SAVINGS FOR NON-COVERED DRUGS -- BIN:525799, PCN: ASPROD1, Group : XXXXX, ID# [id number], Questions: . THIS IS NOT INSURANCE.] furosemide 20 mg tablet RxNorm: 911105 TAKE 1 TABLET ONCE DAILY 12/17/2014 11/02/2015 Inactive Kenalog 40 mg/mL suspension for injection RxNorm: 4538226 2 Milliliter(s) Inj UD 09/17/2014 09/17/2014 Inactive [SAVINGS FOR UNINSURED PATIENTS -- BIN:775001, PCN: ASPROD1, Group: [id number], ID# [id number], Process claim through MedImp[employer], for questions: . THIS IS NOT INSURANCE.] Levaquin 500 mg tablet RxNorm: 113476 1 Tablet(s) PO daily 08/16/2014 Inactive [SAVINGS FOR UNINSURED PATIENTS -- BIN:790566, PCN: ASPROD1, Group: [id number] , ID# [id number], Process claim through [employer], for questions: . THIS IS NOT INSURANCE.] Kenalog 40 mg/mL suspension for injection RxNorm: 6786764 Milliliter(s) Inj 08/03/2014 08/03/2014 Inactive [SAVINGS FOR UNINSURED PATIENTS -- BIN:753526, PCN: ASPROD1, Group: [id number], ID# [id number], Process claim through [employer], for questions: . THIS IS NOT INSURANCE.] azithromycin 500 mg tablet RxNorm: 237336 1 Tablet(s) PO UD 08/02/2014 Inactive dispense a zpack azithromycin 500 mg tablet RxNorm: 409366 1 Tablet(s) PO daily 08/03/2014 08/07/2014 Inactive 1 tab daily Cymbalta 60 mg capsule,delayed release RxNorm: 185880 1 Capsule(s) PO daily 07/23/2014 05/31/2015 Inactive [SAVINGS FOR UNINSURED PATIENTS -- BIN:214598, PCN: ASPROD1, Group: [id number], ID# [id number], Process claim through [employer], for questions: . THIS IS NOT INSURANCE.] Kenalog 40 mg/mL suspension for injection RxNorm: 9758062 1 1/2 Milliliter(s) Inj 04/27/2014 04/27/2014 Inactive [SAVINGS FOR UNINSURED PATIENTS -- BIN:600844, PCN: ASPROD1, Group: AME08, ID# [id number], Process claim through [employer], for questions: . THIS IS NOT INSURANCE.] meclizine 25 mg tablet RxNorm: 695004 1 Tablet(s) PO Q6 PRN 05/26/2014 Inactive [SAVINGS FOR UNINSURED PATIENTS -- BIN:098939, PCN: ASPROD1, Group: [id number] , ID# [id number], Process claim through [employer], for questions: . THIS IS NOT INSURANCE.] Levaquin 500 mg tablet RxNorm: 486885 1 Tablet(s) PO daily 05/03/2014 Inactive [SAVINGS FOR UNINSURED PATIENTS -- BIN:461921, PCN: ASPROD1, Group: [id number] , ID# [id number], Process claim through [employer], for questions: . THIS IS NOT INSURANCE.] Cymbalta 30 mg capsule,delayed release RxNorm: 435011 1 Capsule(s) PO daily 03/25/2014 07/22/2014 Inactive Cymbalta 30 mg capsule,delayed release RxNorm: 056972 1 Capsule(s) PO daily 01/28/2014 03/24/2014 Inactive furosemide 20 mg tablet RxNorm: 477650 1 Tablet(s) PO daily TAKE 1 TABLET BY MOUTH ONCE DAILY. 12/22/2013 12/16/2014 Inactive Toprol XL 25 mg tablet,extended release RxNorm: 630775 1 Tablet(s) PO daily 12/22/2013 01/24/2015 Inactive furosemide 20 mg tablet RxNorm: 948670 Tablet(s) PO TAKE 1 TABLET BY MOUTH ONCE DAILY. 12/04/2013 12/21/2013 Inactive prednisone 10 mg tablet RxNorm: 271305 Tablet(s) PO 10/28/2013 11/16/2013 Inactive 60mg d x 4 [id number] daily x 4 [id number] daily x 4 [id number] daily x 8 days5 mg daily x 8 day2.5 mg daily x 8 days2.5 mg qod x 8 doses then stop Toprol XL 25 mg tablet,extended release RxNorm: 329820 1 Tablet(s) PO daily 08/27/2013 12/21/2013 Inactive Macrobid 100 mg capsule RxNorm: 4612057 1 Capsule(s) PO BID 01/201308/24/2013 Inactive Influenza Virus Vaccine 0.5 mL RxNorm: IM 07/23/2013 07/23/2013 Inactive levofloxacin 500 mg tablet RxNorm: 402411 1 Tablet(s) PO daily 04/29/2013 05/03/2013 Inactive amitriptyline 10 mg tablet RxNorm: 193589 1 Tablet(s) PO qhs prn 1/2 to one tablet at bedtime if needed for bladder spasms 04/29/2013 08/20/2013 Inactive Cipro 250 mg tablet RxNorm: 176102 1 Tablet(s) PO BID 201204/23/2013 Inactive Levaquin 500 mg tablet RxNorm: 443914 1 Tablet(s) PO daily 07/201303/30/2013 Inactive Levaquin 500 mg tablet RxNorm: 770786 1 Tablet(s) PO daily 07/201303/23/2013 Inactive furosemide 20 mg tablet RxNorm: 397017 Tablet(s) PO TAKE 1 TABLET BY MOUTH ONCE DAILY. 03/13/2013 12/03/2013 Inactive furosemide 20 mg tablet RxNorm: 109093 Tablet(s) PO TAKE 1 TABLET BY MOUTH ONCE DAILY. 12/09/2012 03/12/2013 Inactive azithromycin 500 mg tablet RxNorm: 300424 1 Tablet(s) PO daily 11/05/2012 11/14/2012 Inactive rohan prieto Kenalog 40 mg/mL Susp for Injection RxNorm: 0212883 2 Milliliter(s) Inj 11/05/2012 11/05/2012 Inactive Cipro 500 mg tablet RxNorm: 558533 1 Tablet(s) PO BID 201102/05/2013 Inactive furosemide 20 mg tablet RxNorm: 404576 Tablet(s) PO 09/09/2012 12/08/2012 Inactive TAKE 1 TABLET BY MOUTH ONCE DAILY. Toprol XL 25 mg tablet,extended release RxNorm: 107203 1 Tablet(s) PO daily this will replace the coreg 08/26/20122012 Inactive Cipro 500 mg tablet RxNorm: 161444 1 Tablet(s) PO BID 201108/26/2012 Inactive Miralax 17 gram Oral Powder Packet RxNorm: 853751 1 PO daily 07/16/2012 Inactive Miralax 17 gram Oral Powder Packet RxNorm: 917932 1 PO daily 08/10/2013 Inactive furosemide 20 mg tablet RxNorm: 820802 Tablet(s) PO 06/10/2012 09/08/2012 Inactive TAKE 1 TABLET BY MOUTH ONCE DAILY. naproxen 500 mg tablet RxNorm: 488217 1 Tablet(s) PO 201105/08/2012 Inactive Cipro 250 mg tablet RxNorm: 250759 1 Tablet(s) PO BID Take 2 tabs BID today then 1 tab BID for the next 5 days 04/19/2012 04/25/2012 Inactive ketorolac 10 mg Tab RxNorm: 974729 1 Tablet(s) PO TID 201104/17/2012 Inactive ketorolac 60 mg/2 mL IM RxNorm: 137641 Milliliter(s) IM 201104/04/2012 Inactive ketorolac 10 mg Tab RxNorm: 889702 1 Tablet(s) PO TID 201104/10/2012 Inactive ciprofloxacin 500 mg Tab RxNorm: 509575 1 Tablet(s) PO BID 04/13/2012 Inactive ciprofloxacin 500 mg Tab RxNorm: 572750 1 Tablet(s) PO BID 04/03/2012 Inactive Coreg 3.125 mg Tab RxNorm: 704594 1 Tablet(s) PO BID 201108/25/2012 Inactive furosemide 20 mg tablet RxNorm: 729619 1 Tablet(s) PO daily 09/09/2011 Inactive Toprol XL 25 mg tablet,extended release RxNorm: 465578 1 Tablet(s) PO daily No Start Date 08/25/2012 Inactive Caltrate 600 + D oral RxNorm: 020155 oral No Start Date 11/02/2015 Inactive hydroxychloroquine 200 mg tablet RxNorm: 097978 1 Tablet(s) PO BID from dr duncan No Start Date 01/27/2014 Inactive Cipro 500 mg tablet RxNorm: 168386 1/2 Tablet(s) PO daily No Start Date 08/18/2013 Inactive Centrum Silver Ultra Women's Tab RxNorm: 1 Tablet(s) PO daily No Start Date 02/01/2016 Inactive lisinopril 10 mg tablet RxNorm: 279202 1 Tablet(s) PO daily . May take 2 tablets if BP is consistently above 180/100 No Start Date 12/15/2018 Inactive Influenza Virus Vaccine 0.5 mL RxNorm: IM No Start Date 02/02/2016 Inactive hydrocodone 5 mg-acetaminophen 325 mg tablet RxNorm: 654001 1-2 Tablet(s) PO Q4- 6H as needed No Start Date 11/02/2015 Inactive prednisone 10 mg tablet RxNorm: 414854 Tablet(s) PO 60mg daily x 3 days, 40mg daily x 3 days, 20mg daily x 3 days, 10mg daily x 3 days, 5mg daily x 3 days, 5mg QOD x 1 week No Start Date 10/27/2013 Inactive Medication Administered Medication Codes Instructions Start Date Status Kenalog 40 mg/mL suspension for injection RxNorm: 5085811 1.5Milliliter 12/06/2018 No longer Active Kenalog 40 mg/mL suspension for injection RxNorm: 7056766 1.5Milliliter 08/15/2017 No longer Active Kenalog 40 mg/mL suspension for injection RxNorm: 6323384 Milliliter 06/21/2016 No longer Active Kenalog 40 mg/mL suspension for injection RxNorm: 0246325 2MilliliterUD 09/17/2014 No longer Active Kenalog 40 mg/mL suspension for injection RxNorm: 4471527 Milliliter 08/03/2014 No longer Active Kenalog 40 mg/mL suspension for injection RxNorm: 5173480 1 1/2Milliliter 04/27/2014 No longer Active Influenza Virus Vaccine 0.5 mL RxNorm: 07/23/2013 No longer Active Kenalog 40 mg/mL Susp for Injection RxNorm: 4837532 2Milliliter 11/05/2012 No longer Active ketorolac 60 mg/2 mL IM RxNorm: 621006 Milliliter 04/04/2012 No longer Active Immunizations Vaccine Codes Date Status Influenza CVX: 141 06/18/2018 completed Pneumococcal (Adult) CVX: 133 06/18/2018 completed Influenza CVX: 141 09/11/2017 completed Influenza CVX: 141 07/19/2016 completed Influenza CVX: 141 08/25/2015 completed PPD Unknown 02/12/2015 completed Influenza CVX: 141 06/29/2014 completed Pneumococcal (Adult) CVX: 33 07/31/2013 completed Influenza CVX: 141 07/23/2013 completed Influenza CVX: 141 07/01/2012 completed Assessments Condition Codes Effective Dates Tobacco use ICD-10: Z72.0 ICD-9: 305.1 01/13/2019 Chondrocostal junction syndrome [Tietze] ICD-10: M94.0 ICD-9: 733.6 01/13/2019 Essential (primary) hypertension ICD-10: I10 ICD-9: 401.9 01/13/2019 Other urticaria ICD-10: L50.8 ICD-9: 909.3 12/06/2018 Adverse effect of unspecified drugs, medicaments and biological substances, initial encounter ICD-10: T50.905A ICD-9: 995.27 12/06/2018 Personal history of urinary (tract) infections ICD-10: Z87.440 ICD-9: V13.02 11/25/2018 Dysuria ICD-10: R30.0 ICD-9: 788.1 11/25/2018 Diverticulitis of large intestine without perforation or abscess without bleeding ICD-10: K57.32 ICD-9: 562.11 10/14/2018 Encounter for general adult medical examination with abnormal findings ICD-10: Z00.01 ICD-9: V70.0 09/02/2018 Encounter for immunization ICD-10: Z23 ICD-9: V05.9 06/18/2018 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 ICD-9: 564.5 05/21/2018 Insect bite (nonvenomous) of abdominal wall, initial encounter ICD-10: S30.861A ICD-9: 911.4 03/04/2018 Rash and other nonspecific skin eruption ICD-10: R21 ICD-9: 782.1 08/15/2017 Epigastric pain ICD-10: R10.13 ICD-9: 789.06 06/19/2017 Low back pain ICD-10: M54.5 ICD-9: 724.2 02/05/2017 Encounter for immunization ICD-10: Z23 ICD-9: V04.81 07/19/2016 Other acute sinusitis ICD-10: J01.80 ICD-9: 461.9 06/21/2016 Other allergic rhinitis ICD-10: J30.89 ICD-9: 477.8 06/21/2016 Major depressive disorder, single episode, unspecified ICD- 10: F32.9 ICD-9: 311 05/24/2016 Polymyalgia rheumatica ICD-10: M35.3 ICD-9: 725 11/03/2015 Hyperpigmented skin lesion ICD-9: 709.00 02/12/2015 POLYMYALGIA RHEUMATICA ICD-9: 725 2014 ESSENTIAL HYPERTENSION ICD-9: 401.9 01/25 DEPRESSIVE DISORDER NEC ICD-9: 311 2014 Smoking ICD-9: 305.1 11/26/2014 Sacroiliitis ICD-9: 720.2 09/15/2014 Sacroiliac pain ICD-9: 724.6 08/13/2014 Hip pain ICD-9: 719.45 08/13/2014 ACUTE SINUSITIS ICD-9: 461.9 08/03/2014 ALLERGIC RHINITIS ICD-9: 477.9 2013 ACUTE MAXILLARY SINUSITIS ICD-9: 461.0 BPPV (benign paroxysmal positional vertigo) ICD-9: 386.11 04/27/2014 Fatigue ICD-9: 780.79 01/28/2014 Blurry vision, bilateral ICD-9: 368.8 PAIN IN LIMB ICD-9: 729.5 11/17/2013 Urinary tract infection ICD-9: 599.0 01/2013 VACCIN STREP PNEUMONIAE ICD-9: V03.82 VACCIN FOR INFLUENZA ICD-9: V04.81 2012 CHRONIC INTERSTITIAL CYSTITIS ICD-9: 595.1 04/29/2013 HEMATURIA NOS ICD-9: 599.70 04/29/2013 History of urinary tract infection ICD-9: V13.02 04/14/2013 DYSURIA ICD-9: 788.1 03/24/2013 Irritated nevus of neck ICD-9: 216.4 HYPERLIPIDEMIA ICD-9: 272.4 02/06/2013 COUGH ICD-9: 786.2 11/05/2012 ACUTE URI ICD-9: 465.9 11/05/2012 ILL-DEFINE CONDITION NEC ICD-9: 799.89 Microscopic hematuria ICD-9: 599.72 08/20 Constipation - functional ICD-9: 564.09 07/16/2012 Abdominal pain ICD-9: 789.00 07/16/2012 HEADACHE ICD-9: 784.0 05/08/2012 CERVICALGIA ICD-9: 723.1 04/15/2012 Mouth dryness ICD-9: 527.7 04/15/2012 MYALGIA AND MYOSITIS ICD-9: 729.1 2011 Unsteady gait ICD-9: 781.2 04/01/2012 Pericardial rub ICD-9: 785.3 03/20/2012 Reason For Visit Reason For Visit Effective Dates Notes hypertension 01/13/2019 Hospital Follow Up 12/16/2018 rash 12/06/2018 dysuria 11/25/2018 abdominal pain 10/14/2018 Annual Medicare Wellness Exam 09/02/2018 hypertension 05/21/2018 arthropod bite 03/04/2018 hypertension 01/22/2018 hypertension 10/22/2017 Annual Medicare Wellness Exam 08/22/2017 rash 08/15/2017 hypertension 06/19/2017 hypertension 02/13/2017 flank pain 02/05/2017 flank pain 02/02/2017 hypertension 12/12/2016 vaccination against influenza 07/19/2016 sinus congestion 06/21/2016 hypertension 05/24/2016 hypertension 02/02/2016 hypertension 11/03/2015 vaccination against influenza 08/25/2015 office procedure 02/02/2015 hypertension 01/25/2015 hypertension 11/26/2014 hip pain 09/15/2014 left back side shooting over to the middle hypertension 08/13/2014 cough 08/03/2014 Left ear hypertension 07/23/2014 vaccination against influenza 06/29/2014 earache 04/27/2014 hypertension 01/28/2014 hypertension 01/05/2014 polymyalgia rheumatica 11/17/2013 malaise 08/27/2013 fatigue 08/21/2013 blood pressure followup 08/18/2013 vaccination against pneumonia 07/31/2013 vaccination against influenza 07/23/2013 hypertension 04/29/2013 urinary frequency 03/24/2013 hypertension 02/06/2013 earache 11/05/2012 hypertension 10/31/2012 urinary urgency 09/25/2012 hypertension 09/03/2012 hypertension 08/20/2012 constipation 07/16/2012 hypertension 07/01/2012 hypertension 05/08/2012 hypertension 04/19/2012 hypertension 04/15/2012 hypertension 04/04/2012 hospital follow up 04/01/2012 rash 03/20/2012 Results Observation Observation Code Item Item Code Result Date Urine Culture Ucult Complete >100,000 col/ml aerobic growth sent to ref lab 11/26/2018 Lipid Ord30 CHOL 176 mg/dL 07/10/2017 Lipid Ord30 HDL 37.0 mg/dl 07/10/2017 Lipid Ord30 TRIG 143 mg/dL 07/10/2017 Lipid Ord30 LDL 110 mg/dL 07/10/2017 Lipid Ord30 C/HDL 4.8 Ratio 07/10/2017 Tsh Ord6 hTSH II 2.26 uIU/mL 07/10/2017 Comp Metabolic Xur426 NA 140 mEq/L 07/10/2017 Comp Metabolic Zrc512 K 4.2 mEq/L 07/10/2017 Comp Metabolic Efk574 CL 106 mEq/L 07/10/2017 Comp Metabolic Bmj394 CO2 26.0 mEq/L 07/10/2017 Comp Metabolic Nfi375 ANION GAP 12 07/10/2017 Comp Metabolic Wgr667 GLUCOSE 89 mg/dL 07/10/2017 Comp Metabolic Vfi255 Creat 0.6 mg/dL 07/10/2017 Comp Metabolic Sun008 eGFR 105 ml/min/1.73m2 07/10/2017 Comp Metabolic Bpo516 BUN 9 mg/dL 07/10/2017 Comp Metabolic Fes502 B/C Ratio 15.0 Ratio 07/10/2017 Comp Metabolic Djg024 CALCIUM 9.4 mg/dL 07/10/2017 Comp Metabolic Vjf586 ALK PHOS 90 U/L 07/10/2017 Comp Metabolic Xam159 AST(SGOT) 15 U/L 07/10/2017 Comp Metabolic Bac111 ALT(SGPT) 14 U/L 07/10/2017 Comp Metabolic Mrt700 BILI T 0.5 mg/dL 07/10/2017 Comp Metabolic Fbq282 ALBUMIN 4.0 g/dL 07/10/2017 Comp Metabolic Srv439 TPRO 6.2 g/dL 07/10/2017 Comp Metabolic Cfu218 GLOB 2.2 g/dL 07/10/2017 Comp Metabolic Stv297 A/G Ratio 1.8 Ratio 07/10/2017 Comp Metabolic Gub920 Osmo 278 mOsmo 07/10/2017 Cbc With Differential Ord2 WBC 7.25 K/ul 07/10/2017 Cbc With Differential Ord2 RBC 4.52 M/ul 07/10/2017 Cbc With Differential Ord2 HGB 14.6 g/dl 07/10/2017 Cbc With Differential Ord2 HCT 42.9 % 07/10/2017 Cbc With Differential Ord2 Neut% 61.4 % 07/10/2017 Cbc With Differential Ord2 MCV 94.9 fl 07/10/2017 Cbc With Differential Ord2 Lymph% 30.2 % 07/10/2017 Cbc With Differential Ord2 MCH 32.3 pg 07/10/2017 Cbc With Differential Ord2 [place]% 6.2 % 07/10/2017 Cbc With Differential Ord2 MCHC 34.0 pg 07/10/2017 Cbc With Differential Ord2 Eos% 1.8 % 07/10/2017 Cbc With Differential Ord2 PLT 286 K/ul 07/10/2017 Cbc With Differential Ord2 Baso% 0.4 % 07/10/2017 Cbc With Differential Ord2 RDW 13.7 % 07/10/2017 Cbc With Differential Ord2 Neut ABS# 4.45 K/ul 07/10/2017 Cbc With Differential Ord2 Lymph ABS# 2.19 K/ul 07/10/2017 Cbc With Differential Ord2 [place] ABS# 0.5 K/ul 07/10/2017 Cbc With Differential Ord2 Eos ABS# 0.1 K/ul 07/10/2017 Cbc With Differential Ord2 Baso ABS# 0.0 K/ul 07/10/2017 Culture Urine [id number] URINE CULTURE SEE NOTES 02/05/2017 Urine Culture Ucult Complete >100,000 col/ml aerobic growth sent to ref lab 02/03/2017 Culture Urine [id number] URINE CULTURE SEE NOTES 12/18/2016 Culture Urine [id number] Continued Results 12/18/2016 Urine Culture Ucult Complete >100,000 col/ml aerobic growth sent to ref lab 12/13/2016 Lipid Ord30 CHOL 205 mg/dL 02/03/2016 Lipid Ord30 HDL 44.0 mg/dl 02/03/2016 Lipid Ord30 TRIG 120 mg/dL 02/03/2016 Lipid Ord30 LDL 137 mg/dL 02/03/2016 Lipid Ord30 C/HDL 4.7 Ratio 02/03/2016 Cbc With Differential Ord2 WBC 7.77 K/ul 02/03/2016 Cbc With Differential Ord2 RBC 4.47 M/ul 02/03/2016 Cbc With Differential Ord2 HGB 14.5 g/dl 02/03/2016 Cbc With Differential Ord2 HCT 42.8 % 02/03/2016 Cbc With Differential Ord2 Neut% 60.4 % 02/03/2016 Cbc With Differential Ord2 MCV 95.7 fl 02/03/2016 Cbc With Differential Ord2 Lymph% 30.6 % 02/03/2016 Cbc With Differential Ord2 MCH 32.4 pg 02/03/2016 Cbc With Differential Ord2 [place]% 6.6 % 02/03/2016 Cbc With Differential Ord2 MCHC 33.9 pg 02/03/2016 Cbc With Differential Ord2 Eos% 2.1 % 02/03/2016 Cbc With Differential Ord2 PLT 270 K/ul 02/03/2016 Cbc With Differential Ord2 Baso% 0.3 % 02/03/2016 Cbc With Differential Ord2 RDW 14.0 % 02/03/2016 Cbc With Differential Ord2 Neut ABS# 4.70 K/ul 02/03/2016 Cbc With Differential Ord2 Lymph ABS# 2.38 K/ul 02/03/2016 Cbc With Differential Ord2 [place] ABS# 0.5 K/ul 02/03/2016 Cbc With Differential Ord2 Eos ABS# 0.2 K/ul 02/03/2016 Cbc With Differential Ord2 Baso ABS# 0.0 K/ul 02/03/2016 Cbc With Differential Ord2 New Analyzer Notice Please note new ref ranges starting 10-27-2015 due to implemntation of new five part differential hematolgy analyzer. 02/03/2016 Comp Metabolic Wcm751 NA 136 mEq/L 02/03/2016 Comp Metabolic Rvb478 K 4.0 mEq/L 02/03/2016 Comp Metabolic Mwl791 CL 102 mEq/L 02/03/2016 Comp Metabolic Cpe832 CO2 28.0 mEq/L 02/03/2016 Comp Metabolic Hjw197 ANION GAP 10 02/03/2016 Comp Metabolic Dgd281 GLUCOSE 85 mg/dL 02/03/2016 Comp Metabolic Lvt249 Creat 0.7 mg/dL 02/03/2016 Comp Metabolic Aoi025 eGFR 88 ml/min/1.73m2 02/03/2016 Comp Metabolic Uoh497 BUN 15 mg/dL 02/03/2016 Comp Metabolic Hpj984 B/C Ratio 21.4 Ratio 02/03/2016 Comp Metabolic Zbd886 CALCIUM 9.2 mg/dL 02/03/2016 Comp Metabolic Tgc485 ALK PHOS 81 U/L 02/03/2016 Comp Metabolic Tgp669 AST(SGOT) 19 U/L 02/03/2016 Comp Metabolic Zlf925 ALT(SGPT) 22 U/L 02/03/2016 Comp Metabolic Cip878 BILI T 0.5 mg/dL 02/03/2016 Comp Metabolic Ske774 ALBUMIN 4.1 g/dL 02/03/2016 Comp Metabolic Tbk673 TPRO 6.4 g/dL 02/03/2016 Comp Metabolic Fcx889 GLOB 2.3 g/dL 02/03/2016 Comp Metabolic Byi081 A/G Ratio 1.8 Ratio 02/03/2016 Comp Metabolic Mxf648 Osmo 272 mOsmo 02/03/2016 Tsh Ord6 hTSH II 1.61 uIU/mL 02/03/2016 CRP [id number] CRP 1.8 MG/DL 08/21/2013 GFR CALC 9770882 GFR AA >60 ML/MIN 08/21/2013 GFR CALC 1290913 GFR NON-AA >60 ML/MIN 08/21/2013 CBC [id number] WBC 9.0 10e9/L 08/21/2013 CBC [id number] RBC 4.68 10e12/L 08/21/2013 CBC 0220931 HGB 15.0 g/dL 08/21/2013 CBC [id number] HCT DET 43.8 % 08/21/2013 CBC [id number] MCV 93.6 fL 08/21/2013 CBC [id number] MCH 32.1 pg 08/21/2013 CBC 9741248 MCHC 34.2 g/dL 08/21/2013 CBC [id number] PLT 267 10e9/L 08/21/2013 CBC [id number] MPV 9.0 fL 08/21/2013 CBC [id number] MARGE % 67.8 % 08/21/2013 CBC [id number] LY % 24.8 % 08/21/2013 CBC 1091318 MON % 6.2 % 08/21/2013 CBC 7938144 EOS % 1.0 % 08/21/2013 CBC [id number] BASO % 0.2 % 08/21/2013 CBC [id number] RDW 13.1 % 08/21/2013 CBC [id number] ABS MARGE 6.10 10e9/L 08/21/2013 CBC [id number] ABS LYMPH 2.23 10e9/L 08/21/2013 CBC [id number] ABS MONO 0.56 10e9/L 08/21/2013 CBC [id number] ABS EOS 0.09 10e9/L 08/21/2013 CBC [id number] ABS BASO 0.02 10e9/L 08/21/2013 CBC 3089804 RDW-SD 43.9 fL 08/21/2013 TSH [id number] TSH 1.898 uIU/ML 08/21/2013 MAGNESIUM [id number] MAGNESIUM 1.7 MEQ/L 08/21/2013 CHEM 14 1898834 AST 16 U/L 08/21/2013 CHEM 14 3066721 ALT 15 IU/L 08/21/2013 CHEM 14 [id number] BUN 14 MG/DL 08/21/2013 CHEM 14 2519950 ALBUMIN 4.4 GM/DL 08/21/2013 CHEM 14 4502284 CHLORIDE 103 MMOL/L 08/21/2013 CHEM 14 8871468 BILI TOT 0.6 MG/DL 08/21/2013 CHEM 14 6012517 ALK PHOS 80 U/L 08/21/2013 CHEM 14 1316028 SODIUM 138 MMOL/L 08/21/2013 CHEM 14 6109477 CREATININE 0.76 MG/DL 08/21/2013 CHEM 14 9039219 CALCIUM 10.2 MG/DL 08/21/2013 CHEM 14 [id number] POTASSIUM 4.0 MMOL/L 08/21/2013 CHEM 14 8393431 PROT TOT 7.0 GM/DL 08/21/2013 CHEM 14 5620367 GLUCOSE 95 MG/DL 08/21/2013 CHEM 14 4371370 BICARB 29 MMOL/L 08/21/2013 CHEM 14 1198244 ANION GAP 6 MEQ/L 08/21/2013 URINALYSIS NONAUTO W/O SCOPE 93552 Specific [place] 1.020 DateTime(Free Text in Aprima) URINALYSIS NONAUTO W/O SCOPE 76928 PH 5.0 DateTime(Free Text in Aprima) URINALYSIS NONAUTO W/O SCOPE 36742 GLUCOSE Negative DateTime(Free Text in Aprima) URINALYSIS NONAUTO W/O SCOPE 40670 Protein Negative DateTime(Free Text in Aprima) URINALYSIS NONAUTO W/O SCOPE 23408 Blood Mod. Blood DateTime( Free Text in Aprima) URINALYSIS NONAUTO W/O SCOPE 96471 Bilirubin Negative DateTime(Free Text in Aprima) URINALYSIS NONAUTO W/O SCOPE 99366 Ketones Negative DateTime(Free Text in Aprima) URINALYSIS NONAUTO W/O SCOPE 37072 Urobilinogen Negative DateTime(Free Text in Aprima) URINALYSIS NONAUTO W/O SCOPE 83018 Nitrite Negative DateTime(Free Text in Aprima) URINALYSIS NONAUTO W/O SCOPE 98426 Leukocytes Negative DateTime(Free Text in Aprima) URINALYSIS NONAUTO W/O SCOPE 27141 Specific [place] 1.010 DateTime(Free Text in Aprima) URINALYSIS NONAUTO W/O SCOPE 98935 PH 6.0 DateTime(Free Text in Aprima) URINALYSIS NONAUTO W/O SCOPE 00973 GLUCOSE neg DateTime( Free Text in Aprima) URINALYSIS NONAUTO W/O SCOPE 22645 Protein neg DateTime( Free Text in Aprima) URINALYSIS NONAUTO W/O SCOPE 35381 Blood 1+ DateTime(Free Text in Aprima) URINALYSIS NONAUTO W/O SCOPE 74622 Bilirubin neg DateTime(Free Text in Aprima) URINALYSIS NONAUTO W/O SCOPE 68395 Ketones neg DateTime( Free Text in Aprima) URINALYSIS NONAUTO W/O SCOPE 39310 Urobilinogen neg DateTime(Free Text in Aprima) URINALYSIS NONAUTO W/O SCOPE 12513 Nitrite neg DateTime( Free Text in Aprima) URINALYSIS NONAUTO W/O SCOPE 88487 Leukocytes 1+ DateTime(Free Text in Aprima) UA 07663 Specific [place] 1.005 DateTime(Free Text in Aprima ) UA 05657 PH 5 DateTime(Free Text in Aprima) UA 70021 GLUCOSE neg DateTime(Free Text in Aprima) UA 68817 Protein neg DateTime(Free Text in Aprima) UA 71138 Blood 1+ DateTime(Free Text in Aprima) UA 21587 Bilirubin neg DateTime(Free Text in Aprima) UA 60148 Ketones neg DateTime(Free Text in Aprima) UA 05485 Urobilinogen neg DateTime(Free Text in Aprima) UA 78043 Nitrite neg DateTime(Free Text in Aprima) UA 77799 Leukocytes 1+ DateTime(Free Text in Aprima) UA 15558 Specific [place] 1.005 DateTime(Free Text in Aprima ) UA 98139 PH 6.0 DateTime(Free Text in Apr) UA 33857 GLUCOSE neg DateTime(Free Text in Aprima) UA 65824 Protein neg DateTime(Free Text in Aprima) UA 49465 Blood 1+ DateTime(Free Text in Aprima) UA 81391 Bilirubin neg DateTime(Free Text in Apr) UA 26515 Ketones neg DateTime(Free Text in Aprima) UA 05509 Urobilinogen neg DateTime(Free Text in Aprima) UA 24014 Nitrite neg DateTime(Free Text in Apr) UA 36106 Leukocytes neg DateTime(Free Text in ) Review of Systems System Result Effective Dates Constitutional No anorexia 01/13/2019 Constitutional No night sweats 2018 Constitutional No chills 01/13/2019 Constitutional fatigue 01/13/2019 Constitutional No fever 01/13/2019 Constitutional malaise 01/13/2019 Eyes No eye discharge 01/13/2019 Eyes No eye erythema 01/13/2019 Eyes No vision change 01/13/2019 Ears/Nose/Throat/Neck No dizziness 2018 Ears/Nose/Throat/Neck No headache 2018 Ears/Nose/Throat/Neck No nasal allergies 01/13/2019 Ears/Nose/Throat/Neck No nasal lesion 10/2018 Cardiovascular No chest pain/pressure 10/2018 Cardiovascular No dyspnea 01/13/2019 Respiratory No productive sputum 2018 Respiratory No chest congestion 2018 Respiratory cigarette smoking 01/13/2019 Respiratory No cough 01/13/2019 Gastrointestinal No abdominal pain 2018 Gastrointestinal No diarrhea 01/13/2019 Gastrointestinal No nausea 01/13/2019 Gastrointestinal No vomiting 01/13/2019 Genitourinary/Nephrology dysuria 2018 Genitourinary/Nephrology urinary urgency 01/13/2019 Genitourinary/Nephrology urinary frequency 01/13/2019 Genitourinary/Nephrology urinary retention/hesitancy 01/13/2019 Musculoskeletal stiffness 01/13/2019 Musculoskeletal arthralgia(s) 01/13/2019 Musculoskeletal muscle weakness 2018 Musculoskeletal myalgias 01/13/2019 Dermatologic No rash 01/13/2019 Dermatologic No sores 01/13/2019 Psychiatric No anxiety 01/13/2019 Psychiatric No depression 01/13/2019 Cardiovascular hypertension 01/13/2019 Genitourinary/Nephrology breast complaint 01/13/2019 Constitutional No anorexia 12/16/2018 Constitutional No night sweats 2018 Constitutional No chills 12/16/2018 Constitutional fatigue 12/16/2018 Constitutional No fever 12/16/2018 Constitutional malaise 12/16/2018 Eyes No eye discharge 12/16/2018 Eyes No eye erythema 12/16/2018 Eyes No vision change 12/16/2018 Ears/Nose/Throat/Neck No dizziness 2018 Ears/Nose/Throat/Neck No headache 2018 Ears/Nose/Throat/Neck No nasal allergies 12/16/2018 Ears/Nose/Throat/Neck No nasal lesion 01/2019 Cardiovascular No chest pain/pressure 01/2019 Cardiovascular No dyspnea 12/16/2018 Respiratory No productive sputum 2018 Respiratory No chest congestion 2018 Respiratory cigarette smoking 12/16/2018 Respiratory No cough 12/16/2018 Gastrointestinal No abdominal pain 2018 Gastrointestinal No diarrhea 12/16/2018 Gastrointestinal No nausea 12/16/2018 Gastrointestinal No vomiting 12/16/2018 Genitourinary/Nephrology dysuria 2018 Genitourinary/Nephrology urinary urgency 12/16/2018 Genitourinary/Nephrology urinary frequency 12/16/2018 Musculoskeletal stiffness 12/16/2018 Musculoskeletal arthralgia(s) 12/16/2018 Musculoskeletal muscle weakness 2018 Musculoskeletal myalgias 12/16/2018 Dermatologic No rash 12/16/2018 Dermatologic No sores 12/16/2018 Psychiatric No anxiety 12/16/2018 Psychiatric No depression 12/16/2018 Constitutional recent illness 12/06/2018 Constitutional No chills 12/06/2018 Constitutional No diaphoresis 12/06/2018 Constitutional No fever 12/06/2018 Eyes No eye erythema 12/06/2018 Ears/Nose/Throat/Neck No nasal discharge 12/06/2018 Ears/Nose/Throat/Neck No nasal allergies 12/06/2018 Cardiovascular No chest pain/pressure Cardiovascular No dyspnea 12/06/2018 Respiratory No cough 12/06/2018 Respiratory No chest congestion 2018 Respiratory No dyspnea 12/06/2018 Gastrointestinal No abdominal pain 2018 Genitourinary/Nephrology No dysuria 12/06 Dermatologic rash 12/06/2018 Neurologic No alteration of consciousness 12/06/2018 Neurologic No mental status change 2018 Constitutional No anorexia 11/25/2018 Constitutional No night sweats 2018 Constitutional No chills 11/25/2018 Constitutional fatigue 11/25/2018 Constitutional No fever 11/25/2018 Constitutional malaise 11/25/2018 Eyes No eye discharge 11/25/2018 Eyes No eye erythema 11/25/2018 Eyes No vision change 11/25/2018 Ears/Nose/Throat/Neck No dizziness 2018 Ears/Nose/Throat/Neck No headache 2018 Ears/Nose/Throat/Neck No nasal allergies 11/25/2018 Ears/Nose/Throat/Neck No nasal lesion 08/2019 Cardiovascular No chest pain/pressure 08/2019 Cardiovascular No dyspnea 11/25/2018 Respiratory No productive sputum 2018 Respiratory No chest congestion 2018 Respiratory cigarette smoking 11/25/2018 Respiratory No cough 11/25/2018 Gastrointestinal No abdominal pain 2018 Gastrointestinal No diarrhea 11/25/2018 Gastrointestinal No nausea 11/25/2018 Gastrointestinal No vomiting 11/25/2018 Genitourinary/Nephrology dysuria 2018 Genitourinary/Nephrology urinary retention/hesitancy 11/25/2018 Musculoskeletal stiffness 11/25/2018 Musculoskeletal arthralgia(s) 11/25/2018 Musculoskeletal muscle weakness 2018 Musculoskeletal myalgias 11/25/2018 Dermatologic No rash 11/25/2018 Dermatologic No sores 11/25/2018 Psychiatric No anxiety 11/25/2018 Psychiatric No depression 11/25/2018 Genitourinary/Nephrology urinary urgency 11/25/2018 Genitourinary/Nephrology urinary frequency 11/25/2018 Constitutional No anorexia 10/14/2018 Constitutional No night sweats 2017 Constitutional No chills 10/14/2018 Constitutional fatigue 10/14/2018 Constitutional No fever 10/14/2018 Constitutional malaise 10/14/2018 Eyes No eye discharge 10/14/2018 Eyes No eye erythema 10/14/2018 Eyes No vision change 10/14/2018 Ears/Nose/Throat/Neck No dizziness 2017 Ears/Nose/Throat/Neck No headache 2017 Ears/Nose/Throat/Neck No nasal allergies 10/14/2018 Ears/Nose/Throat/Neck No nasal lesion Cardiovascular No chest pain/pressure Cardiovascular No dyspnea 10/14/2018 Respiratory No productive sputum 2017 Respiratory No chest congestion 2017 Respiratory cigarette smoking 10/14/2018 Respiratory No cough 10/14/2018 Gastrointestinal abdominal pain 2017 Gastrointestinal diarrhea 10/14/2018 Gastrointestinal gastroesophageal reflux 10/14/2018 Musculoskeletal stiffness 10/14/2018 Musculoskeletal arthralgia(s) 10/14/2018 Musculoskeletal myalgias 10/14/2018 Neurologic No dizziness 10/14/2018 Neurologic No headache 10/14/2018 Neurologic No neck pain 10/14/2018 Neurologic No syncope 10/14/2018 Psychiatric No anxiety 10/14/2018 Psychiatric No depression 10/14/2018 Constitutional No recent illness 2017 Constitutional No chills 09/02/2018 Constitutional No diaphoresis 09/02/2018 Constitutional No fever 09/02/2018 Eyes No eye erythema 09/02/2018 Ears/Nose/Throat/Neck No nasal discharge 09/02/2018 Cardiovascular No chest pain/pressure Cardiovascular No dyspnea 09/02/2018 Respiratory No cough 09/02/2018 Respiratory No dyspnea 09/02/2018 Neurologic No alteration of consciousness 09/02/2018 Neurologic No mental status change 2017 Constitutional No anorexia 05/21/2018 Constitutional No night sweats 2017 Constitutional No chills 05/21/2018 Constitutional fatigue 05/21/2018 Constitutional No fever 05/21/2018 Constitutional malaise 05/21/2018 Eyes No eye discharge 05/21/2018 Eyes No eye erythema 05/21/2018 Eyes No vision change 05/21/2018 Ears/Nose/Throat/Neck No dizziness 2017 Ears/Nose/Throat/Neck No headache 2017 Ears/Nose/Throat/Neck No nasal allergies 05/21/2018 Ears/Nose/Throat/Neck No nasal lesion 04/2018 Cardiovascular No chest pain/pressure 04/2018 Cardiovascular No dyspnea 05/21/2018 Respiratory No productive sputum 2017 Respiratory No chest congestion 2017 Respiratory cigarette smoking 05/21/2018 Respiratory No cough 05/21/2018 Gastrointestinal abdominal pain 2017 Musculoskeletal stiffness 05/21/2018 Musculoskeletal arthralgia(s) 05/21/2018 Musculoskeletal myalgias 05/21/2018 Neurologic No dizziness 05/21/2018 Neurologic No headache 05/21/2018 Neurologic No neck pain 05/21/2018 Neurologic No syncope 05/21/2018 Psychiatric No anxiety 05/21/2018 Psychiatric No depression 05/21/2018 Gastrointestinal diarrhea 05/21/2018 Gastrointestinal gastroesophageal reflux 05/21/2018 Constitutional No recent illness 2017 Constitutional No fatigue 03/04/2018 Constitutional No fever 03/04/2018 Dermatologic sores 03/04/2018 Constitutional No anorexia 01/22/2018 Constitutional No night sweats 2017 Constitutional No chills 01/22/2018 Constitutional fatigue 01/22/2018 Constitutional No fever 01/22/2018 Constitutional malaise 01/22/2018 Eyes No eye discharge 01/22/2018 Eyes No eye erythema 01/22/2018 Eyes No vision change 01/22/2018 Ears/Nose/Throat/Neck No dizziness 2017 Ears/Nose/Throat/Neck No headache 2017 Ears/Nose/Throat/Neck No nasal allergies 01/22/2018 Ears/Nose/Throat/Neck No nasal lesion 07/2018 Cardiovascular No chest pain/pressure 07/2018 Cardiovascular No dyspnea 01/22/2018 Respiratory No productive sputum 2017 Respiratory No chest congestion 2017 Respiratory cigarette smoking 01/22/2018 Respiratory No cough 01/22/2018 Gastrointestinal abdominal pain 2017 Gastrointestinal No nausea 01/22/2018 Gastrointestinal No vomiting 01/22/2018 Musculoskeletal stiffness 01/22/2018 Musculoskeletal arthralgia(s) 01/22/2018 Musculoskeletal myalgias 01/22/2018 Neurologic No dizziness 01/22/2018 Neurologic No headache 01/22/2018 Neurologic No neck pain 01/22/2018 Neurologic No syncope 01/22/2018 Psychiatric No anxiety 01/22/2018 Psychiatric No depression 01/22/2018 Dermatologic No rash 01/22/2018 Dermatologic No sores 01/22/2018 Constitutional No anorexia 10/22/2017 Constitutional No night sweats 2017 Constitutional No chills 10/22/2017 Constitutional fatigue 10/22/2017 Constitutional No fever 10/22/2017 Constitutional malaise 10/22/2017 Eyes No eye discharge 10/22/2017 Eyes No eye erythema 10/22/2017 Eyes No vision change 10/22/2017 Ears/Nose/Throat/Neck No dizziness 2017 Ears/Nose/Throat/Neck No headache 2017 Ears/Nose/Throat/Neck No nasal allergies 10/22/2017 Ears/Nose/Throat/Neck No nasal lesion 05/2018 Cardiovascular No chest pain/pressure 05/2018 Cardiovascular No dyspnea 10/22/2017 Respiratory No productive sputum 2017 Respiratory No chest congestion 2017 Respiratory cigarette smoking 10/22/2017 Respiratory No cough 10/22/2017 Gastrointestinal abdominal pain 2017 Gastrointestinal No nausea 10/22/2017 Gastrointestinal No vomiting 10/22/2017 Musculoskeletal stiffness 10/22/2017 Musculoskeletal arthralgia(s) 10/22/2017 Musculoskeletal myalgias 10/22/2017 Neurologic No dizziness 10/22/2017 Neurologic No headache 10/22/2017 Neurologic No neck pain 10/22/2017 Neurologic No syncope 10/22/2017 Psychiatric No anxiety 10/22/2017 Psychiatric No depression 10/22/2017 Constitutional No recent illness 2016 Constitutional No chills 08/22/2017 Constitutional No diaphoresis 08/22/2017 Constitutional No fever 08/22/2017 Eyes No eye erythema 08/22/2017 Ears/Nose/Throat/Neck No nasal discharge 08/22/2017 Cardiovascular No chest pain/pressure 05/2017 Cardiovascular No dyspnea 08/22/2017 Respiratory No cough 08/22/2017 Respiratory No dyspnea 08/22/2017 Neurologic No alteration of consciousness 08/22/2017 Neurologic No mental status change 2016 Constitutional No recent illness 2016 Constitutional No chills 08/15/2017 Constitutional No diaphoresis 08/15/2017 Constitutional No fever 08/15/2017 Eyes No eye erythema 08/15/2017 Ears/Nose/Throat/Neck No nasal discharge 08/15/2017 Cardiovascular No chest pain/pressure 10/2016 Cardiovascular No dyspnea 08/15/2017 Respiratory No dyspnea 08/15/2017 Respiratory No cough 08/15/2017 Respiratory No chest congestion 2016 Gastrointestinal No abdominal pain 2016 Dermatologic rash 08/15/2017 Neurologic No alteration of consciousness 08/15/2017 Neurologic No mental status change 2016 Constitutional No anorexia 06/19/2017 Constitutional No night sweats 2016 Constitutional No chills 06/19/2017 Constitutional fatigue 06/19/2017 Constitutional No fever 06/19/2017 Constitutional malaise 06/19/2017 Eyes No eye discharge 06/19/2017 Eyes No eye erythema 06/19/2017 Eyes No vision change 06/19/2017 Ears/Nose/Throat/Neck No dizziness 2016 Ears/Nose/Throat/Neck No headache 2016 Ears/Nose/Throat/Neck No nasal allergies 06/19/2017 Ears/Nose/Throat/Neck No nasal lesion 02/2017 Cardiovascular No chest pain/pressure 02/2017 Cardiovascular No dyspnea 06/19/2017 Respiratory No productive sputum 2016 Respiratory No chest congestion 2016 Respiratory cigarette smoking 06/19/2017 Respiratory No cough 06/19/2017 Gastrointestinal abdominal pain 2016 Gastrointestinal diarrhea 06/19/2017 Gastrointestinal No nausea 06/19/2017 Gastrointestinal No vomiting 06/19/2017 Genitourinary/Nephrology No dysuria 06/19 Genitourinary/Nephrology No urinary retention/hesitancy 06/19/2017 Musculoskeletal stiffness 06/19/2017 Musculoskeletal arthralgia(s) 06/19/2017 Musculoskeletal muscle weakness 2016 Musculoskeletal myalgias 06/19/2017 Dermatologic No rash 06/19/2017 Dermatologic No sores 06/19/2017 Neurologic No dizziness 06/19/2017 Neurologic No headache 06/19/2017 Neurologic No neck pain 06/19/2017 Neurologic No syncope 06/19/2017 Psychiatric No anxiety 06/19/2017 Psychiatric No depression 06/19/2017 Constitutional No anorexia 02/13/2017 Constitutional No night sweats 2016 Constitutional No chills 02/13/2017 Constitutional fatigue 02/13/2017 Constitutional No fever 02/13/2017 Constitutional malaise 02/13/2017 Eyes No eye discharge 02/13/2017 Eyes No eye erythema 02/13/2017 Eyes No vision change 02/13/2017 Ears/Nose/Throat/Neck No dizziness 2016 Ears/Nose/Throat/Neck No headache 2016 Ears/Nose/Throat/Neck No nasal allergies 02/13/2017 Ears/Nose/Throat/Neck No nasal lesion 11/2016 Cardiovascular No chest pain/pressure 11/2016 Cardiovascular No dyspnea 02/13/2017 Respiratory No productive sputum 2016 Respiratory No chest congestion 2016 Respiratory cigarette smoking 02/13/2017 Respiratory No cough 02/13/2017 Gastrointestinal No abdominal pain 2016 Gastrointestinal No diarrhea 02/13/2017 Gastrointestinal No nausea 02/13/2017 Gastrointestinal No vomiting 02/13/2017 Genitourinary/Nephrology No dysuria 02/13 Genitourinary/Nephrology No urinary retention/hesitancy 02/13/2017 Musculoskeletal stiffness 02/13/2017 Musculoskeletal arthralgia(s) 02/13/2017 Musculoskeletal muscle weakness 2016 Musculoskeletal myalgias 02/13/2017 Dermatologic No rash 02/13/2017 Dermatologic No sores 02/13/2017 Neurologic No dizziness 02/13/2017 Neurologic No headache 02/13/2017 Neurologic No neck pain 02/13/2017 Neurologic No syncope 02/13/2017 Psychiatric No anxiety 02/13/2017 Psychiatric No depression 02/13/2017 Constitutional No chills 02/05/2017 Constitutional fatigue 02/05/2017 Constitutional No fever 02/05/2017 Constitutional malaise 02/05/2017 Eyes No eye discharge 02/05/2017 Eyes No eye erythema 02/05/2017 Eyes No vision change 02/05/2017 Ears/Nose/Throat/Neck No nasal allergies 02/05/2017 Cardiovascular No chest pain/pressure Cardiovascular No dyspnea 02/05/2017 Respiratory No chest congestion 2016 Respiratory No cough 02/05/2017 Gastrointestinal No abdominal pain 2016 Gastrointestinal No diarrhea 02/05/2017 Gastrointestinal No nausea 02/05/2017 Gastrointestinal No vomiting 02/05/2017 Genitourinary/Nephrology No dysuria 02/05 Musculoskeletal stiffness 02/05/2017 Musculoskeletal arthralgia(s) 02/05/2017 Dermatologic No rash 02/05/2017 Dermatologic No sores 02/05/2017 Ears/Nose/Throat/Neck No nasal discharge 02/05/2017 Musculoskeletal back pain 02/05/2017 Neurologic No alteration of consciousness 02/05/2017 Neurologic No mental status change 2016 Genitourinary/Nephrology flank pain 02/05 Constitutional No chills 02/02/2017 Constitutional fatigue 02/02/2017 Constitutional No fever 02/02/2017 Constitutional malaise 02/02/2017 Eyes No eye discharge 02/02/2017 Eyes No eye erythema 02/02/2017 Eyes No vision change 02/02/2017 Ears/Nose/Throat/Neck No nasal allergies 02/02/2017 Cardiovascular No chest pain/pressure Cardiovascular No dyspnea 02/02/2017 Respiratory No chest congestion 2016 Respiratory No cough 02/02/2017 Gastrointestinal No nausea 02/02/2017 Gastrointestinal No vomiting 02/02/2017 Musculoskeletal stiffness 02/02/2017 Musculoskeletal arthralgia(s) 02/02/2017 Musculoskeletal muscle weakness 2016 Musculoskeletal myalgias 02/02/2017 Dermatologic No rash 02/02/2017 Constitutional recent illness 02/02/2017 Eyes No eye erythema 02/02/2017 Ears/Nose/Throat/Neck No nasal discharge 02/02/2017 Genitourinary/Nephrology No dysuria 02/02 Gastrointestinal abdominal pain 2016 Neurologic No alteration of consciousness 02/02/2017 Neurologic No mental status change 2016 Constitutional No anorexia 12/12/2016 Constitutional No night sweats 2016 Constitutional No chills 12/12/2016 Constitutional fatigue 12/12/2016 Constitutional No fever 12/12/2016 Constitutional malaise 12/12/2016 Eyes No eye discharge 12/12/2016 Eyes No eye erythema 12/12/2016 Eyes No vision change 12/12/2016 Ears/Nose/Throat/Neck No dizziness 2016 Ears/Nose/Throat/Neck No headache 2016 Ears/Nose/Throat/Neck No nasal allergies 12/12/2016 Ears/Nose/Throat/Neck No nasal lesion Cardiovascular No chest pain/pressure Cardiovascular No dyspnea 12/12/2016 Respiratory No productive sputum 2016 Respiratory No chest congestion 2016 Respiratory cigarette smoking 12/12/2016 Respiratory No cough 12/12/2016 Gastrointestinal No abdominal pain 2016 Gastrointestinal No diarrhea 12/12/2016 Gastrointestinal No nausea 12/12/2016 Gastrointestinal No vomiting 12/12/2016 Genitourinary/Nephrology No dysuria 12/12 Genitourinary/Nephrology No urinary retention/hesitancy 12/12/2016 Musculoskeletal stiffness 12/12/2016 Musculoskeletal arthralgia(s) 12/12/2016 Musculoskeletal muscle weakness 2016 Musculoskeletal myalgias 12/12/2016 Dermatologic No rash 12/12/2016 Dermatologic No sores 12/12/2016 Psychiatric No anxiety 12/12/2016 Psychiatric No depression 12/12/2016 Constitutional No chills 06/21/2016 Constitutional No fever 06/21/2016 Eyes No eye discharge 06/21/2016 Eyes No eye erythema 06/21/2016 Eyes No vision change 06/21/2016 Cardiovascular No chest pain/pressure 04/2016 Cardiovascular No dyspnea 06/21/2016 Respiratory cough 06/21/2016 Gastrointestinal No abdominal pain 2015 Dermatologic No rash 06/21/2016 Dermatologic No sores 06/21/2016 Constitutional recent illness 06/21/2016 Constitutional No diaphoresis 06/21/2016 Ears/Nose/Throat/Neck nasal allergies 04/2016 Ears/Nose/Throat/Neck nasal discharge 04/2016 Ears/Nose/Throat/Neck postnasal drip 04/2016 Ears/Nose/Throat/Neck sinus congestion Ears/Nose/Throat/Neck sore throat 2015 Neurologic No alteration of consciousness 06/21/2016 Neurologic No mental status change 2015 Constitutional No anorexia 05/24/2016 Constitutional No night sweats 2015 Constitutional No chills 05/24/2016 Constitutional fatigue 05/24/2016 Constitutional No fever 05/24/2016 Constitutional malaise 05/24/2016 Eyes No eye discharge 05/24/2016 Eyes No eye erythema 05/24/2016 Eyes No vision change 05/24/2016 Ears/Nose/Throat/Neck No dizziness 2015 Ears/Nose/Throat/Neck No headache 2015 Ears/Nose/Throat/Neck No nasal allergies 05/24/2016 Ears/Nose/Throat/Neck No nasal lesion 07/2016 Cardiovascular No chest pain/pressure 07/2016 Cardiovascular No dyspnea 05/24/2016 Respiratory No productive sputum 2015 Respiratory No chest congestion 2015 Respiratory cigarette smoking 05/24/2016 Respiratory No cough 05/24/2016 Gastrointestinal No abdominal pain 2015 Gastrointestinal No diarrhea 05/24/2016 Gastrointestinal No nausea 05/24/2016 Gastrointestinal No vomiting 05/24/2016 Genitourinary/Nephrology No dysuria 05/24 Genitourinary/Nephrology No urinary retention/hesitancy 05/24/2016 Musculoskeletal stiffness 05/24/2016 Musculoskeletal arthralgia(s) 05/24/2016 Musculoskeletal muscle weakness 2015 Musculoskeletal myalgias 05/24/2016 Dermatologic No rash 05/24/2016 Dermatologic No sores 05/24/2016 Psychiatric No anxiety 05/24/2016 Psychiatric No depression 05/24/2016 Neurologic No dizziness 05/24/2016 Neurologic No headache 05/24/2016 Neurologic No neck pain 05/24/2016 Neurologic No syncope 05/24/2016 Constitutional No anorexia 11/03/2015 Constitutional No night sweats 2015 Constitutional No chills 11/03/2015 Constitutional fatigue 11/03/2015 Constitutional No fever 11/03/2015 Constitutional malaise 11/03/2015 Eyes No eye discharge 11/03/2015 Eyes No eye erythema 11/03/2015 Eyes No vision change 11/03/2015 Ears/Nose/Throat/Neck No dizziness 2015 Ears/Nose/Throat/Neck No headache 2015 Ears/Nose/Throat/Neck No nasal allergies 11/03/2015 Ears/Nose/Throat/Neck No nasal lesion Cardiovascular No chest pain/pressure Cardiovascular No dyspnea 11/03/2015 Respiratory No productive sputum 2015 Respiratory No chest congestion 2015 Respiratory cigarette smoking 11/03/2015 Respiratory No cough 11/03/2015 Gastrointestinal No abdominal pain 2015 Gastrointestinal No diarrhea 11/03/2015 Gastrointestinal No nausea 11/03/2015 Gastrointestinal No vomiting 11/03/2015 Genitourinary/Nephrology No dysuria 11/03 Genitourinary/Nephrology No urinary retention/hesitancy 11/03/2015 Musculoskeletal stiffness 11/03/2015 Musculoskeletal arthralgia(s) 11/03/2015 Musculoskeletal muscle weakness 2015 Musculoskeletal myalgias 11/03/2015 Dermatologic No rash 11/03/2015 Dermatologic No sores 11/03/2015 Psychiatric No anxiety 11/03/2015 Psychiatric No depression 11/03/2015 Constitutional No recent illness 2014 Constitutional fatigue 02/02/2015 Constitutional No fever 02/02/2015 Constitutional No malaise 02/02/2015 Constitutional No weight loss 02/02/2015 Dermatologic mole change 02/02/2015 Constitutional No anorexia 01/25/2015 Constitutional No night sweats 2014 Constitutional No chills 01/25/2015 Constitutional fatigue 01/25/2015 Constitutional No fever 01/25/2015 Constitutional malaise 01/25/2015 Eyes No eye discharge 01/25/2015 Eyes No eye erythema 01/25/2015 Eyes No vision change 01/25/2015 Ears/Nose/Throat/Neck No dizziness 2014 Ears/Nose/Throat/Neck No headache 2014 Ears/Nose/Throat/Neck No nasal allergies 01/25/2015 Ears/Nose/Throat/Neck No nasal lesion Cardiovascular No chest pain/pressure Cardiovascular No dyspnea 01/25/2015 Respiratory No productive sputum 2014 Respiratory No chest congestion 2014 Respiratory cigarette smoking 01/25/2015 Respiratory No cough 01/25/2015 Gastrointestinal No abdominal pain 2014 Gastrointestinal No diarrhea 01/25/2015 Gastrointestinal No nausea 01/25/2015 Gastrointestinal No vomiting 01/25/2015 Genitourinary/Nephrology No dysuria 01/25 Genitourinary/Nephrology No urinary retention/hesitancy 01/25/2015 Musculoskeletal arthralgia(s) 01/25/2015 Musculoskeletal muscle weakness 2014 Musculoskeletal myalgias 01/25/2015 Dermatologic No rash 01/25/2015 Dermatologic No sores 01/25/2015 Psychiatric No anxiety 01/25/2015 Psychiatric No depression 01/25/2015 Musculoskeletal stiffness 01/25/2015 Constitutional No anorexia 11/26/2014 Constitutional No night sweats 2014 Constitutional No chills 11/26/2014 Constitutional fatigue 11/26/2014 Constitutional No fever 11/26/2014 Constitutional malaise 11/26/2014 Eyes No eye discharge 11/26/2014 Eyes No eye erythema 11/26/2014 Eyes No vision change 11/26/2014 Ears/Nose/Throat/Neck No dizziness 2014 Ears/Nose/Throat/Neck No headache 2014 Ears/Nose/Throat/Neck No nasal allergies 11/26/2014 Ears/Nose/Throat/Neck No nasal lesion 09/2015 Cardiovascular No chest pain/pressure 09/2015 Cardiovascular No dyspnea 11/26/2014 Respiratory No productive sputum 2014 Respiratory No chest congestion 2014 Respiratory cigarette smoking 11/26/2014 Respiratory No cough 11/26/2014 Gastrointestinal No abdominal pain 2014 Gastrointestinal No diarrhea 11/26/2014 Gastrointestinal No nausea 11/26/2014 Gastrointestinal No vomiting 11/26/2014 Genitourinary/Nephrology No dysuria 11/26 Genitourinary/Nephrology No urinary retention/hesitancy 11/26/2014 Musculoskeletal arthralgia(s) 11/26/2014 Musculoskeletal muscle weakness 2014 Musculoskeletal myalgias 11/26/2014 Dermatologic No rash 11/26/2014 Dermatologic No sores 11/26/2014 Psychiatric No anxiety 11/26/2014 Psychiatric No depression 11/26/2014 Constitutional No anorexia 09/15/2014 Constitutional No night sweats 2013 Constitutional No chills 09/15/2014 Constitutional No fatigue 09/15/2014 Constitutional No fever 09/15/2014 Constitutional No insomnia 09/15/2014 Constitutional malaise 09/15/2014 Cardiovascular No chest pain/pressure 11/2013 Cardiovascular No dyspnea 09/15/2014 Cardiovascular No edema 09/15/2014 Respiratory No productive sputum 2013 Respiratory No chest congestion 2013 Respiratory cigarette smoking 09/15/2014 Respiratory No cough 09/15/2014 Gastrointestinal No constipation 2013 Musculoskeletal arthralgia(s) 09/15/2014 Musculoskeletal muscle weakness 2013 Musculoskeletal myalgias 09/15/2014 Constitutional No insomnia 08/13/2014 Constitutional No fatigue 08/13/2014 Cardiovascular No chest pain/pressure Cardiovascular No dyspnea 08/13/2014 Cardiovascular No edema 08/13/2014 Gastrointestinal No constipation 2013 Constitutional No anorexia 08/13/2014 Constitutional No night sweats 2013 Constitutional No chills 08/13/2014 Constitutional No fever 08/13/2014 Constitutional malaise 08/13/2014 Respiratory No productive sputum 2013 Respiratory No chest congestion 2013 Respiratory cigarette smoking 08/13/2014 Respiratory No cough 08/13/2014 Musculoskeletal arthralgia(s) 08/13/2014 Musculoskeletal muscle weakness 2013 Musculoskeletal myalgias 08/13/2014 Constitutional recent illness 08/03/2014 Constitutional No anorexia 08/03/2014 Constitutional No night sweats 2013 Constitutional No chills 08/03/2014 Constitutional diaphoresis 08/03/2014 Constitutional No fatigue 08/03/2014 Constitutional No fever 08/03/2014 Constitutional No insomnia 08/03/2014 Constitutional No malaise 08/03/2014 Constitutional No weight loss 08/03/2014 Constitutional No weight gain 08/03/2014 Eyes No eye discharge 08/03/2014 Eyes No eye erythema 08/03/2014 Ears/Nose/Throat/Neck No dizziness 2013 Ears/Nose/Throat/Neck nasal allergies Ears/Nose/Throat/Neck nasal discharge Ears/Nose/Throat/Neck No headache 2013 Ears/Nose/Throat/Neck otalgia 08/03/2014 Ears/Nose/Throat/Neck sinus congestion Ears/Nose/Throat/Neck No sore throat Cardiovascular No chest pain/pressure Respiratory No productive sputum 2013 Respiratory cough 08/03/2014 Respiratory dyspnea on exertion 2013 Respiratory No chest tightness 2013 Gastrointestinal No abdominal pain 2013 Gastrointestinal No constipation 2013 Gastrointestinal No diarrhea 08/03/2014 Gastrointestinal No vomiting 08/03/2014 Gastrointestinal No nausea 08/03/2014 Genitourinary/Nephrology No dysuria 08/03 Musculoskeletal No joint complaint 2013 Dermatologic No sores 08/03/2014 Dermatologic No rash 08/03/2014 Neurologic No alteration of consciousness 08/03/2014 Cardiovascular No chest pain/pressure 06/2014 Cardiovascular No dyspnea 07/23/2014 Constitutional No anorexia 07/23/2014 Constitutional No night sweats 2013 Constitutional No chills 07/23/2014 Constitutional fatigue 07/23/2014 Constitutional No fever 07/23/2014 Constitutional malaise 07/23/2014 Eyes No eye discharge 07/23/2014 Eyes No eye erythema 07/23/2014 Eyes No vision change 07/23/2014 Ears/Nose/Throat/Neck No dizziness 2013 Ears/Nose/Throat/Neck No headache 2013 Ears/Nose/Throat/Neck No nasal allergies 07/23/2014 Ears/Nose/Throat/Neck No nasal lesion 06/2014 Respiratory No productive sputum 2013 Respiratory No chest congestion 2013 Respiratory cigarette smoking 07/23/2014 Respiratory No cough 07/23/2014 Gastrointestinal No abdominal pain 2013 Gastrointestinal No diarrhea 07/23/2014 Gastrointestinal No nausea 07/23/2014 Gastrointestinal No vomiting 07/23/2014 Genitourinary/Nephrology No dysuria 07/23 Genitourinary/Nephrology No urinary retention/hesitancy 07/23/2014 Musculoskeletal arthralgia(s) 07/23/2014 Musculoskeletal muscle weakness 2013 Musculoskeletal myalgias 07/23/2014 Dermatologic No rash 07/23/2014 Dermatologic No sores 07/23/2014 Psychiatric No anxiety 07/23/2014 Psychiatric No depression 07/23/2014 Constitutional No anorexia 06/29/2014 Constitutional No night sweats 2013 Constitutional No chills 06/29/2014 Constitutional fatigue 06/29/2014 Constitutional No fever 06/29/2014 Constitutional malaise 06/29/2014 Eyes No eye discharge 06/29/2014 Eyes No eye erythema 06/29/2014 Eyes No vision change 06/29/2014 Ears/Nose/Throat/Neck No dizziness 2013 Ears/Nose/Throat/Neck No headache 2013 Ears/Nose/Throat/Neck No nasal allergies 06/29/2014 Ears/Nose/Throat/Neck No nasal lesion Respiratory No productive sputum 2013 Respiratory No chest congestion 2013 Respiratory cigarette smoking 06/29/2014 Respiratory No cough 06/29/2014 Gastrointestinal No abdominal pain 2013 Gastrointestinal No diarrhea 06/29/2014 Gastrointestinal No nausea 06/29/2014 Gastrointestinal No vomiting 06/29/2014 Genitourinary/Nephrology No dysuria 06/29 Genitourinary/Nephrology No urinary retention/hesitancy 06/29/2014 Musculoskeletal arthralgia(s) 06/29/2014 Musculoskeletal muscle weakness 2013 Musculoskeletal myalgias 06/29/2014 Dermatologic No rash 06/29/2014 Dermatologic No sores 06/29/2014 Psychiatric No anxiety 06/29/2014 Psychiatric No depression 06/29/2014 Constitutional recent illness 04/27/2014 Constitutional No anorexia 04/27/2014 Constitutional No night sweats 2013 Constitutional No chills 04/27/2014 Constitutional No diaphoresis 04/27/2014 Constitutional fatigue 04/27/2014 Constitutional No fever 04/27/2014 Constitutional No insomnia 04/27/2014 Constitutional No malaise 04/27/2014 Eyes No eye discharge 04/27/2014 Eyes No eye erythema 04/27/2014 Ears/Nose/Throat/Neck dizziness 2013 Ears/Nose/Throat/Neck No headache 2013 Ears/Nose/Throat/Neck No nasal discharge 04/27/2014 Ears/Nose/Throat/Neck otalgia 04/27/2014 Ears/Nose/Throat/Neck No sore throat Ears/Nose/Throat/Neck sinus congestion Cardiovascular No chest pain/pressure Respiratory No productive sputum 2013 Respiratory No chest congestion 2013 Respiratory No cough 04/27/2014 Gastrointestinal No vomiting 04/27/2014 Gastrointestinal No nausea 04/27/2014 Gastrointestinal No diarrhea 04/27/2014 Genitourinary/Nephrology No dysuria 04/27 Musculoskeletal No joint complaint 2013 Dermatologic No rash 04/27/2014 Dermatologic No sores 04/27/2014 Constitutional No anorexia 01/28/2014 Constitutional No night sweats 2013 Constitutional No chills 01/28/2014 Constitutional fatigue 01/28/2014 Constitutional No fever 01/28/2014 Constitutional malaise 01/28/2014 Eyes No eye discharge 01/28/2014 Eyes No eye erythema 01/28/2014 Eyes No vision change 01/28/2014 Ears/Nose/Throat/Neck No dizziness 2013 Ears/Nose/Throat/Neck No headache 2013 Ears/Nose/Throat/Neck No nasal allergies 01/28/2014 Ears/Nose/Throat/Neck No nasal lesion Respiratory No productive sputum 2013 Respiratory No chest congestion 2013 Respiratory cigarette smoking 01/28/2014 Respiratory No cough 01/28/2014 Gastrointestinal No abdominal pain 2013 Gastrointestinal No diarrhea 01/28/2014 Gastrointestinal No nausea 01/28/2014 Gastrointestinal No vomiting 01/28/2014 Genitourinary/Nephrology No dysuria 01/28 Genitourinary/Nephrology No urinary retention/hesitancy 01/28/2014 Musculoskeletal arthralgia(s) 01/28/2014 Musculoskeletal muscle weakness 2013 Musculoskeletal myalgias 01/28/2014 Dermatologic No rash 01/28/2014 Dermatologic No sores 01/28/2014 Psychiatric No anxiety 01/28/2014 Psychiatric No depression 01/28/2014 Constitutional No anorexia 01/05/2014 Constitutional No night sweats 2013 Constitutional No chills 01/05/2014 Constitutional fatigue 01/05/2014 Constitutional No fever 01/05/2014 Constitutional malaise 01/05/2014 Eyes No eye discharge 01/05/2014 Eyes No eye erythema 01/05/2014 Eyes No vision change 01/05/2014 Ears/Nose/Throat/Neck No dizziness 2013 Ears/Nose/Throat/Neck No headache 2013 Ears/Nose/Throat/Neck No nasal allergies 01/05/2014 Ears/Nose/Throat/Neck No nasal lesion Respiratory No productive sputum 2013 Respiratory No chest congestion 2013 Respiratory cigarette smoking 01/05/2014 Respiratory No cough 01/05/2014 Gastrointestinal No abdominal pain 2013 Gastrointestinal No diarrhea 01/05/2014 Gastrointestinal No nausea 01/05/2014 Gastrointestinal No vomiting 01/05/2014 Genitourinary/Nephrology No dysuria 01/05 Genitourinary/Nephrology No urinary retention/hesitancy 01/05/2014 Musculoskeletal arthralgia(s) 01/05/2014 Musculoskeletal muscle weakness 2013 Musculoskeletal myalgias 01/05/2014 Dermatologic No rash 01/05/2014 Dermatologic No sores 01/05/2014 Psychiatric No anxiety 01/05/2014 Psychiatric No depression 01/05/2014 Constitutional No anorexia 11/17/2013 Constitutional No night sweats 2013 Constitutional No chills 11/17/2013 Constitutional fatigue 11/17/2013 Constitutional No fever 11/17/2013 Constitutional malaise 11/17/2013 Eyes No eye discharge 11/17/2013 Eyes No eye erythema 11/17/2013 Eyes No vision change 11/17/2013 Ears/Nose/Throat/Neck No dizziness 2013 Ears/Nose/Throat/Neck No headache 2013 Ears/Nose/Throat/Neck No nasal allergies 11/17/2013 Ears/Nose/Throat/Neck No nasal lesion 12/2013 Respiratory No productive sputum 2013 Respiratory No chest congestion 2013 Respiratory cigarette smoking 11/17/2013 Respiratory No cough 11/17/2013 Gastrointestinal No abdominal pain 2013 Gastrointestinal No diarrhea 11/17/2013 Gastrointestinal No nausea 11/17/2013 Gastrointestinal No vomiting 11/17/2013 Genitourinary/Nephrology No dysuria 11/17 Genitourinary/Nephrology No urinary retention/hesitancy 11/17/2013 Musculoskeletal arthralgia(s) 11/17/2013 Musculoskeletal muscle weakness 2013 Musculoskeletal myalgias 11/17/2013 Dermatologic No rash 11/17/2013 Dermatologic No sores 11/17/2013 Psychiatric No anxiety 11/17/2013 Psychiatric No depression 11/17/2013 Constitutional No anorexia 08/27/2013 Constitutional No night sweats 2012 Constitutional No chills 08/27/2013 Constitutional fatigue 08/27/2013 Constitutional No fever 08/27/2013 Constitutional malaise 08/27/2013 Eyes No eye discharge 08/27/2013 Eyes No eye erythema 08/27/2013 Eyes No vision change 08/27/2013 Ears/Nose/Throat/Neck No dizziness 2012 Ears/Nose/Throat/Neck No headache 2012 Ears/Nose/Throat/Neck No nasal allergies 08/27/2013 Ears/Nose/Throat/Neck No nasal lesion Respiratory No productive sputum 2012 Respiratory No chest congestion 2012 Respiratory cigarette smoking 08/27/2013 Respiratory No cough 08/27/2013 Gastrointestinal No abdominal pain 2012 Gastrointestinal No diarrhea 08/27/2013 Gastrointestinal No nausea 08/27/2013 Gastrointestinal No vomiting 08/27/2013 Genitourinary/Nephrology No dysuria 08/27 Genitourinary/Nephrology No urinary retention/hesitancy 08/27/2013 Musculoskeletal arthralgia(s) 08/27/2013 Musculoskeletal muscle weakness 2012 Musculoskeletal myalgias 08/27/2013 Dermatologic No rash 08/27/2013 Dermatologic No sores 08/27/2013 Psychiatric No anxiety 08/27/2013 Psychiatric No depression 08/27/2013 Constitutional No anorexia 08/21/2013 Constitutional No night sweats 2012 Constitutional No chills 08/21/2013 Constitutional No fever 08/21/2013 Constitutional malaise 08/21/2013 Eyes No eye discharge 08/21/2013 Eyes No eye erythema 08/21/2013 Eyes No vision change 08/21/2013 Ears/Nose/Throat/Neck No dizziness 2012 Ears/Nose/Throat/Neck No headache 2012 Ears/Nose/Throat/Neck No nasal allergies 08/21/2013 Ears/Nose/Throat/Neck No nasal lesion 04/2013 Respiratory No productive sputum 2012 Respiratory No chest congestion 2012 Respiratory cigarette smoking 08/21/2013 Respiratory No cough 08/21/2013 Gastrointestinal No abdominal pain 2012 Gastrointestinal No diarrhea 08/21/2013 Gastrointestinal No nausea 08/21/2013 Gastrointestinal No vomiting 08/21/2013 Genitourinary/Nephrology No dysuria 08/21 Genitourinary/Nephrology No urinary retention/hesitancy 08/21/2013 Dermatologic No rash 08/21/2013 Dermatologic No sores 08/21/2013 Psychiatric No anxiety 08/21/2013 Psychiatric No depression 08/21/2013 Constitutional fatigue 08/21/2013 Musculoskeletal arthralgia(s) 08/21/2013 Musculoskeletal myalgias 08/21/2013 Musculoskeletal muscle weakness 2012 Constitutional No recent illness 2012 Constitutional No anorexia 08/18/2013 Constitutional No night sweats 2012 Constitutional No chills 08/18/2013 Constitutional No diaphoresis 08/18/2013 Constitutional fatigue 08/18/2013 Constitutional No fever 08/18/2013 Constitutional No insomnia 08/18/2013 Eyes No eye discharge 08/18/2013 Eyes No eye erythema 08/18/2013 Ears/Nose/Throat/Neck No dizziness 2012 Ears/Nose/Throat/Neck No headache 2012 Ears/Nose/Throat/Neck No nasal allergies 08/18/2013 Ears/Nose/Throat/Neck No nasal discharge 08/18/2013 Respiratory No productive sputum 2012 Respiratory No chest congestion 2012 Respiratory No cough 08/18/2013 Gastrointestinal No abdominal pain 2012 Gastrointestinal No constipation 2012 Gastrointestinal No diarrhea 08/18/2013 Gastrointestinal No vomiting 08/18/2013 Genitourinary/Nephrology No dysuria 08/18 Genitourinary/Nephrology No polyuria 01/2013 Genitourinary/Nephrology No urinary frequency 08/18/2013 Genitourinary/Nephrology No urinary urgency 08/18/2013 Dermatologic No rash 08/18/2013 Dermatologic No sores 08/18/2013 Constitutional No anorexia 04/29/2013 Constitutional No night sweats 2012 Constitutional No chills 04/29/2013 Constitutional No fever 04/29/2013 Constitutional No malaise 04/29/2013 Eyes No eye discharge 04/29/2013 Eyes No eye erythema 04/29/2013 Eyes No vision change 04/29/2013 Ears/Nose/Throat/Neck No dizziness 2012 Ears/Nose/Throat/Neck No headache 2012 Ears/Nose/Throat/Neck No nasal allergies 04/29/2013 Ears/Nose/Throat/Neck No nasal lesion Respiratory No productive sputum 2012 Respiratory No chest congestion 2012 Respiratory cigarette smoking 04/29/2013 Respiratory No cough 04/29/2013 Gastrointestinal No abdominal pain 2012 Gastrointestinal No diarrhea 04/29/2013 Gastrointestinal No nausea 04/29/2013 Gastrointestinal No vomiting 04/29/2013 Genitourinary/Nephrology No dysuria 04/29 Genitourinary/Nephrology urinary urgency 04/29/2013 Genitourinary/Nephrology No urinary retention/hesitancy 04/29/2013 Dermatologic No rash 04/29/2013 Dermatologic No sores 04/29/2013 Psychiatric No anxiety 04/29/2013 Psychiatric No depression 04/29/2013 Constitutional No anorexia 03/24/2013 Constitutional No night sweats 2012 Constitutional No chills 03/24/2013 Constitutional No fever 03/24/2013 Constitutional No malaise 03/24/2013 Eyes No eye discharge 03/24/2013 Eyes No eye erythema 03/24/2013 Eyes No vision change 03/24/2013 Ears/Nose/Throat/Neck No dizziness 2012 Ears/Nose/Throat/Neck No headache 2012 Ears/Nose/Throat/Neck No nasal allergies 03/24/2013 Ears/Nose/Throat/Neck No nasal lesion 07/2013 Respiratory No productive sputum 2012 Respiratory No chest congestion 2012 Respiratory cigarette smoking 03/24/2013 Respiratory No cough 03/24/2013 Gastrointestinal No abdominal pain 2012 Gastrointestinal No diarrhea 03/24/2013 Gastrointestinal No nausea 03/24/2013 Gastrointestinal No vomiting 03/24/2013 Dermatologic No rash 03/24/2013 Dermatologic No sores 03/24/2013 Psychiatric No anxiety 03/24/2013 Psychiatric No depression 03/24/2013 Constitutional No anorexia 02/06/2013 Constitutional No night sweats 2012 Constitutional No chills 02/06/2013 Constitutional No fever 02/06/2013 Constitutional No malaise 02/06/2013 Eyes No eye discharge 02/06/2013 Eyes No eye erythema 02/06/2013 Eyes No vision change 02/06/2013 Ears/Nose/Throat/Neck No dizziness 2012 Ears/Nose/Throat/Neck No headache 2012 Ears/Nose/Throat/Neck No nasal allergies 02/06/2013 Ears/Nose/Throat/Neck No nasal lesion Respiratory No productive sputum 2012 Respiratory No chest congestion 2012 Respiratory cigarette smoking 02/06/2013 Respiratory No cough 02/06/2013 Gastrointestinal No abdominal pain 2012 Gastrointestinal No diarrhea 02/06/2013 Gastrointestinal No nausea 02/06/2013 Gastrointestinal No vomiting 02/06/2013 Genitourinary/Nephrology No dysuria 02/06 Genitourinary/Nephrology urinary urgency 02/06/2013 Genitourinary/Nephrology No urinary retention/hesitancy 02/06/2013 Dermatologic No rash 02/06/2013 Dermatologic No sores 02/06/2013 Psychiatric No anxiety 02/06/2013 Psychiatric No depression 02/06/2013 Constitutional No anorexia 11/05/2012 Constitutional No night sweats 2012 Constitutional No chills 11/05/2012 Constitutional No fever 11/05/2012 Constitutional No malaise 11/05/2012 Eyes No eye discharge 11/05/2012 Eyes No eye erythema 11/05/2012 Eyes No vision change 11/05/2012 Ears/Nose/Throat/Neck No dizziness 2012 Ears/Nose/Throat/Neck No headache 2012 Ears/Nose/Throat/Neck No nasal allergies 11/05/2012 Ears/Nose/Throat/Neck No nasal lesion Respiratory No productive sputum 2012 Respiratory No chest congestion 2012 Respiratory cigarette smoking 11/05/2012 Respiratory No cough 11/05/2012 Gastrointestinal No abdominal pain 2012 Gastrointestinal No diarrhea 11/05/2012 Gastrointestinal No nausea 11/05/2012 Gastrointestinal No vomiting 11/05/2012 Genitourinary/Nephrology No dysuria 11/05 Genitourinary/Nephrology No urinary retention/hesitancy 11/05/2012 Dermatologic No rash 11/05/2012 Dermatologic No sores 11/05/2012 Psychiatric No anxiety 11/05/2012 Psychiatric No depression 11/05/2012 Cardiovascular No chest pain/pressure Cardiovascular No dyspnea 11/05/2012 Cardiovascular No edema 11/05/2012 Cardiovascular No exercise intolerance Cardiovascular No fatigue 11/05/2012 Cardiovascular No near-syncope/dizziness 11/05/2012 Constitutional No anorexia 10/31/2012 Constitutional No night sweats 2012 Constitutional No chills 10/31/2012 Constitutional No fever 10/31/2012 Constitutional No malaise 10/31/2012 Eyes No eye discharge 10/31/2012 Eyes No eye erythema 10/31/2012 Eyes No vision change 10/31/2012 Ears/Nose/Throat/Neck No dizziness 2012 Ears/Nose/Throat/Neck No headache 2012 Ears/Nose/Throat/Neck No nasal allergies 10/31/2012 Ears/Nose/Throat/Neck No nasal lesion Respiratory No productive sputum 2012 Respiratory No chest congestion 2012 Respiratory cigarette smoking 10/31/2012 Respiratory No cough 10/31/2012 Gastrointestinal No abdominal pain 2012 Gastrointestinal No diarrhea 10/31/2012 Gastrointestinal No nausea 10/31/2012 Gastrointestinal No vomiting 10/31/2012 Genitourinary/Nephrology No dysuria 10/31 Genitourinary/Nephrology urinary urgency 10/31/2012 Genitourinary/Nephrology No urinary retention/hesitancy 10/31/2012 Dermatologic No rash 10/31/2012 Dermatologic No sores 10/31/2012 Psychiatric No anxiety 10/31/2012 Psychiatric No depression 10/31/2012 Gastrointestinal No vomiting 09/25/2012 Dermatologic No rash 09/25/2012 Dermatologic No scar 09/25/2012 Psychiatric No anxiety 09/25/2012 Psychiatric No depression 09/25/2012 Constitutional No recent illness 2011 Constitutional No chills 09/25/2012 Constitutional No fatigue 09/25/2012 Constitutional No fever 09/25/2012 Constitutional No insomnia 09/25/2012 Constitutional No malaise 09/25/2012 Cardiovascular No chest pain/pressure 09/2012 Cardiovascular No dyspnea 09/25/2012 Cardiovascular No edema 09/25/2012 Cardiovascular No exercise intolerance Cardiovascular No fatigue 09/25/2012 Cardiovascular No near-syncope/dizziness 09/25/2012 Respiratory No chest tightness 2011 Respiratory No cigarette smoking 2011 Respiratory No cough 09/25/2012 Respiratory No dyspnea 09/25/2012 Respiratory No pedal edema 09/25/2012 Respiratory No snoring 09/25/2012 Respiratory No wheezing 09/25/2012 Gastrointestinal No hemorrhoids 2011 Gastrointestinal No abdominal pain 2011 Gastrointestinal No constipation 2011 Gastrointestinal No diarrhea 09/25/2012 Gastrointestinal No gastroesophageal reflux 09/25/2012 Gastrointestinal No melena 09/25/2012 Gastrointestinal No nausea 09/25/2012 Constitutional No anorexia 09/03/2012 Constitutional No night sweats 2011 Constitutional No chills 09/03/2012 Constitutional No fever 09/03/2012 Constitutional No malaise 09/03/2012 Eyes No eye discharge 09/03/2012 Eyes No eye erythema 09/03/2012 Eyes No vision change 09/03/2012 Ears/Nose/Throat/Neck No dizziness 2011 Ears/Nose/Throat/Neck No headache 2011 Ears/Nose/Throat/Neck No nasal allergies 09/03/2012 Ears/Nose/Throat/Neck No nasal lesion Respiratory No productive sputum 2011 Respiratory No chest congestion 2011 Respiratory cigarette smoking 09/03/2012 Respiratory No cough 09/03/2012 Gastrointestinal No abdominal pain 2011 Gastrointestinal No diarrhea 09/03/2012 Gastrointestinal No nausea 09/03/2012 Gastrointestinal No vomiting 09/03/2012 Genitourinary/Nephrology No dysuria 09/03 Genitourinary/Nephrology No urinary urgency 09/03/2012 Genitourinary/Nephrology No urinary retention/hesitancy 09/03/2012 Dermatologic No rash 09/03/2012 Dermatologic No sores 09/03/2012 Psychiatric No anxiety 09/03/2012 Psychiatric No depression 09/03/2012 Constitutional recent illness 08/20/2012 Constitutional No anorexia 08/20/2012 Constitutional No night sweats 2011 Constitutional No chills 08/20/2012 Constitutional fatigue 08/20/2012 Constitutional No diaphoresis 08/20/2012 Constitutional No fever 08/20/2012 Constitutional No insomnia 08/20/2012 Eyes No eye discharge 08/20/2012 Eyes No eye erythema 08/20/2012 Ears/Nose/Throat/Neck No dizziness 2011 Ears/Nose/Throat/Neck No headache 2011 Respiratory No productive sputum 2011 Respiratory No chest congestion 2011 Respiratory No cough 08/20/2012 Gastrointestinal No abdominal pain 2011 Gastrointestinal No constipation 2011 Gastrointestinal No diarrhea 08/20/2012 Gastrointestinal No nausea 08/20/2012 Gastrointestinal No vomiting 08/20/2012 Dermatologic No rash 08/20/2012 Dermatologic No sores 08/20/2012 Constitutional No recent illness 2011 Constitutional No anorexia 07/16/2012 Constitutional No night sweats 2011 Constitutional No chills 07/16/2012 Constitutional No diaphoresis 07/16/2012 Constitutional fatigue 07/16/2012 Constitutional No fever 07/16/2012 Constitutional No insomnia 07/16/2012 Constitutional No malaise 07/16/2012 Eyes No eye discharge 07/16/2012 Eyes No eye erythema 07/16/2012 Ears/Nose/Throat/Neck No dizziness 2011 Ears/Nose/Throat/Neck No headache 2011 Ears/Nose/Throat/Neck No otalgia 2011 Ears/Nose/Throat/Neck No nasal discharge 07/16/2012 Cardiovascular No chest pain/pressure 11/2011 Respiratory No productive sputum 2011 Respiratory No chest congestion 2011 Respiratory No cough 07/16/2012 Genitourinary/Nephrology No dysuria 07/16 Dermatologic No rash 07/16/2012 Dermatologic No sores 07/16/2012 Neurologic No alteration of consciousness 07/16/2012 Musculoskeletal No joint complaint 2011 Constitutional No anorexia 07/01/2012 Constitutional No night sweats 2011 Constitutional No chills 07/01/2012 Constitutional No fever 07/01/2012 Constitutional No malaise 07/01/2012 Eyes No eye discharge 07/01/2012 Eyes No eye erythema 07/01/2012 Eyes No vision change 07/01/2012 Ears/Nose/Throat/Neck No nasal allergies 07/01/2012 Ears/Nose/Throat/Neck No nasal lesion Respiratory No productive sputum 2011 Respiratory No chest congestion 2011 Respiratory No cough 07/01/2012 Gastrointestinal No abdominal pain 2011 Gastrointestinal constipation 07/01/2012 Gastrointestinal No diarrhea 07/01/2012 Gastrointestinal No nausea 07/01/2012 Gastrointestinal No vomiting 07/01/2012 Genitourinary/Nephrology No dysuria 07/01 Genitourinary/Nephrology No urinary urgency 07/01/2012 Genitourinary/Nephrology urinary frequency 07/01/2012 Genitourinary/Nephrology No urinary retention/hesitancy 07/01/2012 Dermatologic No rash 07/01/2012 Dermatologic No sores 07/01/2012 Ears/Nose/Throat/Neck No headache 2011 Ears/Nose/Throat/Neck No dizziness 2011 Respiratory cigarette smoking 07/01/2012 Gastrointestinal gas and bloating 2011 Gastrointestinal gastroesophageal reflux 07/01/2012 Psychiatric No anxiety 07/01/2012 Psychiatric No depression 07/01/2012 Constitutional No recent illness 2011 Constitutional No anorexia 05/08/2012 Constitutional No night sweats 2011 Constitutional No chills 05/08/2012 Constitutional No diaphoresis 05/08/2012 Constitutional fatigue 05/08/2012 Constitutional No fever 05/08/2012 Constitutional No insomnia 05/08/2012 Eyes No eye discharge 05/08/2012 Eyes No eye erythema 05/08/2012 Eyes No vision change 05/08/2012 Ears/Nose/Throat/Neck No dizziness 2011 Ears/Nose/Throat/Neck No nasal allergies 05/08/2012 Ears/Nose/Throat/Neck No nasal discharge 05/08/2012 Ears/Nose/Throat/Neck No otalgia 2011 Ears/Nose/Throat/Neck No sinus congestion 05/08/2012 Ears/Nose/Throat/Neck No sore throat Cardiovascular No chest pain/pressure Cardiovascular No dyspnea 05/08/2012 Cardiovascular No edema 05/08/2012 Cardiovascular hypertension 05/08/2012 Cardiovascular No near-syncope/dizziness 05/08/2012 Respiratory No productive sputum 2011 Respiratory No chest congestion 2011 Respiratory No cough 05/08/2012 Gastrointestinal No abdominal pain 2011 Gastrointestinal No constipation 2011 Gastrointestinal No diarrhea 05/08/2012 Gastrointestinal No nausea 05/08/2012 Gastrointestinal No vomiting 05/08/2012 Genitourinary/Nephrology No dysuria 05/08 Musculoskeletal joint complaint 2011 Dermatologic No rash 05/08/2012 Neurologic No alteration of consciousness 05/08/2012 Neurologic No gait abnormality 2011 Neurologic headache 05/08/2012 Psychiatric No psychosis 05/08/2012 Psychiatric No suicidality 05/08/2012 Constitutional recent illness 04/19/2012 Constitutional No anorexia 04/19/2012 Constitutional No night sweats 2011 Constitutional No chills 04/19/2012 Constitutional diaphoresis 04/19/2012 Constitutional fatigue 04/19/2012 Constitutional No fever 04/19/2012 Constitutional insomnia 04/19/2012 Constitutional No malaise 04/19/2012 Eyes No eye discharge 04/19/2012 Eyes No eye erythema 04/19/2012 Eyes No vision change 04/19/2012 Ears/Nose/Throat/Neck headache 2011 Ears/Nose/Throat/Neck No nasal allergies 04/19/2012 Ears/Nose/Throat/Neck No nasal lesion 03/2012 Respiratory No productive sputum 2011 Respiratory No chest congestion 2011 Respiratory No cough 04/19/2012 Gastrointestinal No abdominal pain 2011 Gastrointestinal No constipation 2011 Gastrointestinal No diarrhea 04/19/2012 Gastrointestinal No vomiting 04/19/2012 Gastrointestinal No nausea 04/19/2012 Genitourinary/Nephrology No dysuria 04/19 Genitourinary/Nephrology No urinary urgency 04/19/2012 Genitourinary/Nephrology urinary frequency 04/19/2012 Genitourinary/Nephrology No urinary retention/hesitancy 04/19/2012 Dermatologic No rash 04/19/2012 Dermatologic No sores 04/19/2012 Constitutional No recent illness 2011 Constitutional No anorexia 04/15/2012 Constitutional No night sweats 2011 Constitutional No chills 04/15/2012 Constitutional No diaphoresis 04/15/2012 Constitutional fatigue 04/15/2012 Constitutional No fever 04/15/2012 Constitutional No insomnia 04/15/2012 Eyes No eye discharge 04/15/2012 Eyes No eye erythema 04/15/2012 Eyes No vision change 04/15/2012 Ears/Nose/Throat/Neck No dizziness 2011 Ears/Nose/Throat/Neck headache 2011 Ears/Nose/Throat/Neck No nasal allergies 04/15/2012 Ears/Nose/Throat/Neck No nasal discharge 04/15/2012 Ears/Nose/Throat/Neck No otalgia 2011 Ears/Nose/Throat/Neck No sinus congestion 04/15/2012 Ears/Nose/Throat/Neck No sore throat 11/2011 Respiratory No productive sputum 2011 Respiratory No chest congestion 2011 Respiratory No cough 04/15/2012 Gastrointestinal No abdominal pain 2011 Gastrointestinal No constipation 2011 Gastrointestinal No diarrhea 04/15/2012 Gastrointestinal No nausea 04/15/2012 Gastrointestinal No vomiting 04/15/2012 Genitourinary/Nephrology No dysuria 04/15 Musculoskeletal joint complaint 2011 Musculoskeletal myalgias 04/15/2012 Musculoskeletal neck pain 04/15/2012 Dermatologic No rash 04/15/2012 Neurologic No alteration of consciousness 04/15/2012 Neurologic No gait abnormality 2011 Neurologic headache 04/15/2012 Psychiatric No psychosis 04/15/2012 Psychiatric No suicidality 04/15/2012 Constitutional No recent illness 2011 Constitutional No anorexia 04/04/2012 Constitutional No night sweats 2011 Constitutional No chills 04/04/2012 Constitutional No diaphoresis 04/04/2012 Constitutional fatigue 04/04/2012 Constitutional No fever 04/04/2012 Constitutional No insomnia 04/04/2012 Eyes No eye discharge 04/04/2012 Eyes No eye erythema 04/04/2012 Eyes No vision change 04/04/2012 Ears/Nose/Throat/Neck No dizziness 2011 Ears/Nose/Throat/Neck headache 2011 Ears/Nose/Throat/Neck No nasal allergies 04/04/2012 Ears/Nose/Throat/Neck No nasal discharge 04/04/2012 Ears/Nose/Throat/Neck No otalgia 2011 Ears/Nose/Throat/Neck No sinus congestion 04/04/2012 Ears/Nose/Throat/Neck No sore throat Respiratory No productive sputum 2011 Respiratory No chest congestion 2011 Respiratory No cough 04/04/2012 Gastrointestinal No abdominal pain 2011 Gastrointestinal No constipation 2011 Gastrointestinal No diarrhea 04/04/2012 Gastrointestinal No nausea 04/04/2012 Gastrointestinal No vomiting 04/04/2012 Genitourinary/Nephrology No dysuria 04/04 Musculoskeletal joint complaint 2011 Musculoskeletal myalgias 04/04/2012 Musculoskeletal neck pain 04/04/2012 Dermatologic No rash 04/04/2012 Neurologic No alteration of consciousness 04/04/2012 Neurologic No gait abnormality 2011 Neurologic headache 04/04/2012 Psychiatric No psychosis 04/04/2012 Psychiatric No suicidality 04/04/2012 Constitutional No recent illness 2011 Constitutional No anorexia 04/01/2012 Constitutional No night sweats 2011 Constitutional No chills 04/01/2012 Constitutional No diaphoresis 04/01/2012 Constitutional fatigue 04/01/2012 Constitutional No fever 04/01/2012 Constitutional No insomnia 04/01/2012 Eyes No eye discharge 04/01/2012 Eyes No eye erythema 04/01/2012 Eyes No vision change 04/01/2012 Ears/Nose/Throat/Neck No dizziness 2011 Ears/Nose/Throat/Neck headache 2011 Ears/Nose/Throat/Neck No nasal allergies 04/01/2012 Ears/Nose/Throat/Neck No nasal discharge 04/01/2012 Ears/Nose/Throat/Neck No otalgia 2011 Ears/Nose/Throat/Neck No sinus congestion 04/01/2012 Ears/Nose/Throat/Neck No sore throat Respiratory No productive sputum 2011 Respiratory No chest congestion 2011 Respiratory No cough 04/01/2012 Gastrointestinal No abdominal pain 2011 Gastrointestinal No constipation 2011 Gastrointestinal No diarrhea 04/01/2012 Gastrointestinal No nausea 04/01/2012 Gastrointestinal No vomiting 04/01/2012 Genitourinary/Nephrology No dysuria 04/01 Dermatologic No rash 04/01/2012 Neurologic No alteration of consciousness 04/01/2012 Neurologic No gait abnormality 2011 Neurologic headache 04/01/2012 Psychiatric No psychosis 04/01/2012 Psychiatric No suicidality 04/01/2012 Musculoskeletal neck pain 04/01/2012 Musculoskeletal joint complaint 2011 Musculoskeletal myalgias 04/01/2012 Neurologic headache 03/20/2012 Neurologic No gait abnormality 2011 Psychiatric No psychosis 03/20/2012 Psychiatric No suicidality 03/20/2012 Constitutional No recent illness 2011 Constitutional No anorexia 03/20/2012 Constitutional No night sweats 2011 Constitutional No chills 03/20/2012 Constitutional No diaphoresis 03/20/2012 Constitutional No fever 03/20/2012 Constitutional No insomnia 03/20/2012 Eyes No eye discharge 03/20/2012 Eyes No eye erythema 03/20/2012 Eyes No vision change 03/20/2012 Ears/Nose/Throat/Neck No dizziness 2011 Ears/Nose/Throat/Neck headache 2011 Ears/Nose/Throat/Neck No nasal allergies 03/20/2012 Ears/Nose/Throat/Neck No nasal discharge 03/20/2012 Ears/Nose/Throat/Neck No otalgia 2011 Ears/Nose/Throat/Neck No sinus congestion 03/20/2012 Ears/Nose/Throat/Neck No sore throat 03/2012 Cardiovascular No chest pain/pressure 03/2012 Respiratory No productive sputum 2011 Respiratory No chest congestion 2011 Respiratory No cough 03/20/2012 Gastrointestinal No vomiting 03/20/2012 Gastrointestinal No nausea 03/20/2012 Gastrointestinal No abdominal pain 2011 Gastrointestinal No constipation 2011 Gastrointestinal No diarrhea 03/20/2012 Genitourinary/Nephrology No dysuria 03/20 Constitutional fatigue 03/20/2012 Cardiovascular No edema 03/20/2012 Cardiovascular No dyspnea 03/20/2012 Cardiovascular hypertension 03/20/2012 Cardiovascular No near-syncope/dizziness 03/20/2012 Musculoskeletal joint complaint 2011 Dermatologic No rash 03/20/2012 Neurologic No alteration of consciousness 03/20/2012 Physical Exam Exam Name System Name Item Name Status Result Effective Dates Notes Full Exam - General 1994 Constitutional general appearance Development: well developed 01/13/2019 None Full Exam - General 1994 Constitutional general appearance Development: appears stated age 0401/13/2019 None Full Exam - General 1994 Eyes pupils and irises Overall: pupils equal, round, reactive to light and accomodation 01/13/2019 None Full Exam - General 1994 Ears/Nose/Throat otoscopic exam Overall: external auditory canals clear 01/13/2019 None Full Exam - General 1994 Ears/Nose/Throat otoscopic exam Overall: tympanic membranes clear 01/13/2019 None Full Exam - General 1994 Ears/Nose/Throat oral cavity/pharynx/larynx Overall: oral mucosa clear 01/13/2019 None Full Exam - General 1994 Respiratory auscultation Overall: breath sounds clear bilaterally 01/13/2019 None Full Exam - General 1994 Respiratory respiratory effort/rhythm Overall: no retractions 01/13/2019 None Full Exam - General 1994 Respiratory respiratory effort/rhythm Overall: normal rate 01/13/2019 None Full Exam - General 1994 Cardiovascular extremities Overall: no clubbing 01/13/2019 None Full Exam - General 1994 Cardiovascular auscultation of heart Rate: regular rate 01/13/2019 None Full Exam - General 1994 Cardiovascular auscultation of heart Rhythm: regular rhythm 01/13/2019 None Full Exam - General 1994 Cardiovascular auscultation of heart Heart sounds: pericardial rub 01/13/2019 None Full Exam - General 1994 Abdomen abdominal exam Overall: no tenderness 01/13/2019 None Full Exam - General 1994 Abdomen abdominal exam Overall: normal bowel sounds 01/13/2019 None Full Exam - General 1994 Abdomen abdominal exam Skin: presence of a scar 01/13/2019 from recent laproscopic surgery Full Exam - General 1994 Musculoskeletal spine, ribs and pelvis Overall: spine benign 01/13/2019 None Full Exam - General 1994 Musculoskeletal spine, ribs and pelvis Overall: sacroiliac joint benign 01/13/2019 None Full Exam - General 1994 Musculoskeletal spine, ribs and pelvis Overall: good posture 01/13/2019 None Full Exam - General 1994 Musculoskeletal head and neck Overall: head atraumatic 01/13/2019 None Full Exam - General 1994 Musculoskeletal head and neck Overall: cervical spine benign 01/13/2019 None Full Exam - General 1994 Neurologic cranial nerves Overall: crainial nerves 2 - 12 grossly intact 01/13/2019 None Full Exam - General 1994 Psychiatric orientation/consciousness Overall: oriented to person, place and time 01/13/2019 None Full Exam - General 1994 Chest/Breast breast and axillae palpation Nipple: non- tender 01/13/2019 None Full Exam - General 1994 Chest/Breast breast and axillae palpation Nipple: no discharge 01/13/2019 None Full Exam - General 1994 Chest/Breast breast and axillae palpation Axillae: no mass 01/13/2019 None Full Exam - General 1994 Chest/Breast breast and axillae palpation Axillae: non- tender 01/13/2019 None Full Exam - General 1994 Chest/Breast breast and axillae palpation Axillae: soft 01/13/2019 None Full Exam - General 1994 Chest/Breast breast and axillae palpation Upper inner quadrant: no mass 01/13/2019 None Full Exam - General 1994 Chest/Breast breast and axillae palpation Upper inner quadrant: non-tender 01/13/2019 None Full Exam - General 1994 Chest/Breast breast and axillae palpation Upper inner quadrant: soft 01/13/2019 None Full Exam - General 1994 Chest/Breast breast and axillae palpation Upper outer quadrant: no mass 01/13/2019 None Full Exam - General 1994 Chest/Breast breast and axillae palpation Upper outer quadrant: non-tender 01/13/2019 scar in upper outer left quadrant Full Exam - General 1994 Chest/Breast breast and axillae palpation Lower inner quadrant: no mass 01/13/2019 None Full Exam - General 1994 Chest/Breast breast and axillae palpation Lower outer quadrant: no mass 01/13/2019 None Full Exam - General 1994 Respiratory palpation of chest Chest wall pain: pain to deep pressure 01/13/2019 None Full Exam - General 1994 Constitutional general appearance Development: well developed 12/16/2018 None Full Exam - General 1994 Constitutional general appearance Development: appears stated age 0312/16/2018 None Full Exam - General 1994 Eyes pupils and irises Overall: pupils equal, round, reactive to light and accomodation 12/16/2018 None Full Exam - General 1994 Ears/Nose/Throat otoscopic exam Overall: external auditory canals clear 12/16/2018 None Full Exam - General 1994 Ears/Nose/Throat otoscopic exam Overall: tympanic membranes clear 12/16/2018 None Full Exam - General 1994 Ears/Nose/Throat oral cavity/pharynx/larynx Overall: oral mucosa clear 12/16/2018 None Full Exam - General 1994 Respiratory auscultation Overall: breath sounds clear bilaterally 12/16/2018 None Full Exam - General 1994 Respiratory respiratory effort/rhythm Overall: no retractions 12/16/2018 None Full Exam - General 1994 Respiratory respiratory effort/rhythm Overall: normal rate 12/16/2018 None Full Exam - General 1994 Cardiovascular extremities Overall: no clubbing 12/16/2018 None Full Exam - General 1994 Cardiovascular auscultation of heart Rate: regular rate 12/16/2018 None Full Exam - General 1994 Cardiovascular auscultation of heart Rhythm: regular rhythm 12/16/2018 None Full Exam - General 1994 Cardiovascular auscultation of heart Heart sounds: pericardial rub 12/16/2018 None Full Exam - General 1994 Abdomen abdominal exam Overall: no tenderness 12/16/2018 None Full Exam - General 1994 Abdomen abdominal exam Overall: normal bowel sounds 12/16/2018 None Full Exam - General 1994 Musculoskeletal spine, ribs and pelvis Overall: spine benign 12/16/2018 None Full Exam - General 1994 Musculoskeletal spine, ribs and pelvis Overall: sacroiliac joint benign 12/16/2018 None Full Exam - General 1994 Musculoskeletal spine, ribs and pelvis Overall: good posture 12/16/2018 None Full Exam - General 1994 Musculoskeletal head and neck Overall: head atraumatic 12/16/2018 None Full Exam - General 1994 Musculoskeletal head and neck Overall: cervical spine benign 12/16/2018 None Full Exam - General 1994 Psychiatric orientation/consciousness Overall: oriented to person, place and time 12/16/2018 None Full Exam - Dermatology Constitutional general appearance Overall: well nourished 12/06/2018 None Full Exam - Dermatology Constitutional general appearance Overall: well developed 12/06/2018 None Full Exam - Dermatology Constitutional general appearance Overall: in no acute distress 12/06/2018 None Full Exam - Dermatology Eyes conjunctiva/ eyelids Overall: clear conjunctiva bilaterally 12/06/2018 None Full Exam - Dermatology Eyes conjunctiva/ eyelids Overall: clear corneas 12/06/2018 None Full Exam - Dermatology Eyes conjunctiva/ eyelids Overall: normal eyelids 12/06/2018 None Full Exam - Dermatology Ears/Nose/Throat oropharynx Overall: clear oral mucosa 12/06/2018 None Full Exam - Dermatology Ears/Nose/Throat lips/teeth/gingiva Overall: benign lips 12/06/2018 None Full Exam - Dermatology Respiratory respiratory effort/rhythm Overall: no retractions 12/06/2018 None Full Exam - Dermatology Respiratory respiratory effort/rhythm Overall: normal rate 12/06/2018 None Full Exam - Dermatology Respiratory auscultation Overall: breath sounds clear bilaterally 12/06/2018 None Full Exam - Dermatology Musculoskeletal head and neck Overall: head atraumatic 12/06/2018 None Full Exam - Dermatology Integument insp & palp - head/face Lesion: patch 12/06/2018 None Full Exam - Dermatology Integument insp & palp - head/face Color: erythematous 12/06/2018 very mild Full Exam - Dermatology Integument insp & palp - head/face Location: on the right cheek 12/06/2018 None Full Exam - Dermatology Integument insp & palp - back Lesion: wheal 12/06/2018 None Full Exam - Dermatology Integument insp & palp - back Location: on the right upper back 12/06/2018 None Full Exam - Dermatology Integument insp & palp - back Color: erythematous 12/06/2018 mild Full Exam - Dermatology Psychiatric orientation Overall: oriented to person, place and time 12/06/2018 None Full Exam - Dermatology Psychiatric mood and affect Overall: normal mood and affect 12/06/2018 None Full Exam - General 1994 Constitutional general appearance Development: well developed 11/25/2018 None Full Exam - General 1994 Constitutional general appearance Development: appears stated age 0211/25/2018 None Full Exam - General 1994 Eyes pupils and irises Overall: pupils equal, round, reactive to light and accomodation 11/25/2018 None Full Exam - General 1994 Ears/Nose/Throat otoscopic exam Overall: external auditory canals clear 11/25/2018 None Full Exam - General 1994 Ears/Nose/Throat otoscopic exam Overall: tympanic membranes clear 11/25/2018 None Full Exam - General 1994 Ears/Nose/Throat oral cavity/pharynx/larynx Overall: oral mucosa clear 11/25/2018 None Full Exam - General 1994 Respiratory auscultation Overall: breath sounds clear bilaterally 11/25/2018 None Full Exam - General 1994 Respiratory respiratory effort/rhythm Overall: no retractions 11/25/2018 None Full Exam - General 1994 Respiratory respiratory effort/rhythm Overall: normal rate 11/25/2018 None Full Exam - General 1994 Cardiovascular extremities Overall: no clubbing 11/25/2018 None Full Exam - General 1994 Cardiovascular auscultation of heart Rate: regular rate 11/25/2018 None Full Exam - General 1994 Cardiovascular auscultation of heart Rhythm: regular rhythm 11/25/2018 None Full Exam - General 1994 Cardiovascular auscultation of heart Heart sounds: pericardial rub 11/25/2018 None Full Exam - General 1994 Abdomen abdominal exam Overall: no tenderness 11/25/2018 None Full Exam - General 1994 Abdomen abdominal exam Overall: normal bowel sounds 11/25/2018 None Full Exam - General 1994 Abdomen abdominal exam Skin: presence of a scar 11/25/2018 from recent laproscopic surgery Full Exam - General 1994 Musculoskeletal spine, ribs and pelvis Overall: spine benign 11/25/2018 None Full Exam - General 1994 Musculoskeletal spine, ribs and pelvis Overall: sacroiliac joint benign 11/25/2018 None Full Exam - General 1994 Musculoskeletal spine, ribs and pelvis Overall: good posture 11/25/2018 None Full Exam - General 1994 Musculoskeletal head and neck Overall: head atraumatic 11/25/2018 None Full Exam - General 1994 Musculoskeletal head and neck Overall: cervical spine benign 11/25/2018 None Full Exam - General 1994 Neurologic cranial nerves Overall: crainial nerves 2 - 12 grossly intact 11/25/2018 None Full Exam - General 1994 Psychiatric orientation/consciousness Overall: oriented to person, place and time 11/25/2018 None Full Exam - General 1994 Constitutional general appearance Development: well developed 10/14/2018 None Full Exam - General 1994 Constitutional general appearance Development: appears stated age 1210/14/2018 None Full Exam - General 1994 Eyes pupils and irises Overall: pupils equal, round, reactive to light and accomodation 10/14/2018 None Full Exam - General 1994 Ears/Nose/Throat otoscopic exam Overall: external auditory canals clear 10/14/2018 None Full Exam - General 1994 Ears/Nose/Throat otoscopic exam Overall: tympanic membranes clear 10/14/2018 None Full Exam - General 1994 Ears/Nose/Throat oral cavity/pharynx/larynx Overall: oral mucosa clear 10/14/2018 None Full Exam - General 1994 Respiratory auscultation Overall: breath sounds clear bilaterally 10/14/2018 None Full Exam - General 1994 Respiratory respiratory effort/rhythm Overall: no retractions 10/14/2018 None Full Exam - General 1994 Respiratory respiratory effort/rhythm Overall: normal rate 10/14/2018 None Full Exam - General 1994 Cardiovascular extremities Overall: no clubbing 10/14/2018 None Full Exam - General 1994 Cardiovascular auscultation of heart Rate: regular rate 10/14/2018 None Full Exam - General 1994 Cardiovascular auscultation of heart Rhythm: regular rhythm 10/14/2018 None Full Exam - General 1994 Cardiovascular auscultation of heart Heart sounds: pericardial rub 10/14/2018 None Full Exam - General 1994 Abdomen abdominal exam Overall: normal bowel sounds 10/14/2018 None Full Exam - General 1994 Abdomen abdominal exam Skin: presence of a scar 10/14/2018 from recent laproscopic surgery Full Exam - General 1994 Abdomen abdominal exam Epigastric: tender to palpation 10/14/2018 None Full Exam - General 1994 Musculoskeletal spine, ribs and pelvis Overall: spine benign 10/14/2018 None Full Exam - General 1994 Musculoskeletal spine, ribs and pelvis Overall: sacroiliac joint benign 10/14/2018 None Full Exam - General 1994 Musculoskeletal spine, ribs and pelvis Overall: good posture 10/14/2018 None Full Exam - General 1994 Musculoskeletal head and neck Overall: head atraumatic 10/14/2018 None Full Exam - General 1994 Musculoskeletal head and neck Overall: cervical spine benign 10/14/2018 None Full Exam - General 1994 Psychiatric orientation/consciousness Overall: oriented to person, place and time 10/14/2018 None Full Exam - General 1994 Constitutional general appearance Overall: well developed 09/02/2018 None Full Exam - General 1994 Constitutional general appearance Overall: in no acute distress 09/02/2018 None Full Exam - General 1994 Constitutional general appearance Overall: well nourished 09/02/2018 None Full Exam - General 1994 Eyes conjunctiva /eyelids Overall: conjunctiva clear 09/02/2018 None Full Exam - General 1994 Eyes conjunctiva /eyelids Overall: eyelids normal 09/02/2018 None Full Exam - General 1994 Ears/Nose/Throat lips/teeth/gingiva Overall: benign lips 09/02/2018 None Full Exam - General 1994 Respiratory respiratory effort/rhythm Overall: no retractions 09/02/2018 None Full Exam - General 1994 Respiratory respiratory effort/rhythm Overall: normal rate 09/02/2018 None Full Exam - General 1994 Musculoskeletal head and neck Overall: head atraumatic 09/02/2018 None Full Exam - General 1994 Neurologic cranial nerves Overall: crainial nerves 2 - 12 grossly intact 09/02/2018 None Full Exam - General 1994 Psychiatric orientation/consciousness Overall: oriented to person, place and time 09/02/2018 None Full Exam - General 1994 Psychiatric mood and affect Overall: normal mood and affect 09/02/2018 None Full Exam - General 1994 Psychiatric appearance Overall: well-groomed, good eye contact 09/02/2018 None Full Exam - General 1994 Constitutional general appearance Development: well developed 05/21/2018 None Full Exam - General 1994 Constitutional general appearance Development: appears stated age 0805/21/2018 None Full Exam - General 1994 Eyes pupils and irises Overall: pupils equal, round, reactive to light and accomodation 05/21/2018 None Full Exam - General 1994 Ears/Nose/Throat otoscopic exam Overall: external auditory canals clear 05/21/2018 None Full Exam - General 1994 Ears/Nose/Throat otoscopic exam Overall: tympanic membranes clear 05/21/2018 None Full Exam - General 1994 Ears/Nose/Throat oral cavity/pharynx/larynx Overall: oral mucosa clear 05/21/2018 None Full Exam - General 1994 Respiratory auscultation Overall: breath sounds clear bilaterally 05/21/2018 None Full Exam - General 1994 Respiratory respiratory effort/rhythm Overall: no retractions 05/21/2018 None Full Exam - General 1994 Respiratory respiratory effort/rhythm Overall: normal rate 05/21/2018 None Full Exam - General 1994 Cardiovascular extremities Overall: no clubbing 05/21/2018 None Full Exam - General 1994 Cardiovascular auscultation of heart Rate: regular rate 05/21/2018 None Full Exam - General 1994 Cardiovascular auscultation of heart Rhythm: regular rhythm 05/21/2018 None Full Exam - General 1994 Cardiovascular auscultation of heart Heart sounds: pericardial rub 05/21/2018 None Full Exam - General 1994 Abdomen abdominal exam Overall: normal bowel sounds 05/21/2018 None Full Exam - General 1994 Abdomen abdominal exam Skin: presence of a scar 05/21/2018 from recent laproscopic surgery Full Exam - General 1994 Abdomen abdominal exam Epigastric: tender to palpation 05/21/2018 None Full Exam - General 1994 Musculoskeletal spine, ribs and pelvis Overall: spine benign 05/21/2018 None Full Exam - General 1994 Musculoskeletal spine, ribs and pelvis Overall: sacroiliac joint benign 05/21/2018 None Full Exam - General 1994 Musculoskeletal spine, ribs and pelvis Overall: good posture 05/21/2018 None Full Exam - General 1994 Musculoskeletal head and neck Overall: head atraumatic 05/21/2018 None Full Exam - General 1994 Musculoskeletal head and neck Overall: cervical spine benign 05/21/2018 None Full Exam - General 1994 Psychiatric orientation/consciousness Overall: oriented to person, place and time 05/21/2018 None Full Exam - General 1994 Constitutional general appearance Overall: well nourished 03/04/2018 None Full Exam - General 1994 Constitutional general appearance Overall: well developed 03/04/2018 None Full Exam - General 1994 Constitutional general appearance Overall: in no acute distress 03/04/2018 None Full Exam - General 1994 Psychiatric orientation/consciousness Overall: oriented to person, place and time 03/04/2018 None Full Exam - General 1994 Psychiatric mood and affect Mood: happy 03/04/2018 None Full Exam - General 1994 Psychiatric mood and affect Overall: normal mood and affect 03/04/2018 None Full Exam - General 1994 Integument inspection of skin Dermatitis: erythema 03/04/2018 and bruising around bites on suprapubic and on right thigh x 2 Full Exam - General 1994 Cardiovascular auscultation of heart Overall: regular rate 03/04/2018 None Full Exam - General 1994 Cardiovascular auscultation of heart Overall: normal heart sounds 03/04/2018 None Full Exam - General 1994 Cardiovascular auscultation of heart Overall: no murmurs 03/04/2018 None Full Exam - General 1994 Respiratory respiratory effort/rhythm Overall: normal rate 03/04/2018 None Full Exam - General 1994 Respiratory respiratory effort/rhythm Overall: no retractions 03/04/2018 None Full Exam - General 1994 Constitutional general appearance Development: well developed 01/22/2018 None Full Exam - General 1994 Constitutional general appearance Development: appears stated age 0401/22/2018 None Full Exam - General 1994 Eyes pupils and irises Overall: pupils equal, round, reactive to light and accomodation 01/22/2018 None Full Exam - General 1994 Ears/Nose/Throat otoscopic exam Overall: external auditory canals clear 01/22/2018 None Full Exam - General 1994 Ears/Nose/Throat otoscopic exam Overall: tympanic membranes clear 01/22/2018 None Full Exam - General 1994 Ears/Nose/Throat oral cavity/pharynx/larynx Overall: oral mucosa clear 01/22/2018 None Full Exam - General 1994 Respiratory auscultation Overall: breath sounds clear bilaterally 01/22/2018 None Full Exam - General 1994 Respiratory respiratory effort/rhythm Overall: no retractions 01/22/2018 None Full Exam - General 1994 Respiratory respiratory effort/rhythm Overall: normal rate 01/22/2018 None Full Exam - General 1994 Cardiovascular extremities Overall: no clubbing 01/22/2018 None Full Exam - General 1994 Cardiovascular auscultation of heart Rate: regular rate 01/22/2018 None Full Exam - General 1994 Cardiovascular auscultation of heart Rhythm: regular rhythm 01/22/2018 None Full Exam - General 1994 Cardiovascular auscultation of heart Heart sounds: pericardial rub 01/22/2018 None Full Exam - General 1994 Abdomen abdominal exam Overall: normal bowel sounds 01/22/2018 None Full Exam - General 1994 Abdomen abdominal exam Skin: presence of a scar 01/22/2018 from recent laproscopic surgery Full Exam - General 1994 Abdomen abdominal exam Epigastric: tender to palpation 01/22/2018 None Full Exam - General 1994 Musculoskeletal spine, ribs and pelvis Overall: spine benign 01/22/2018 None Full Exam - General 1994 Musculoskeletal spine, ribs and pelvis Overall: sacroiliac joint benign 01/22/2018 None Full Exam - General 1994 Musculoskeletal spine, ribs and pelvis Overall: good posture 01/22/2018 None Full Exam - General 1994 Musculoskeletal head and neck Overall: head atraumatic 01/22/2018 None Full Exam - General 1994 Musculoskeletal head and neck Overall: cervical spine benign 01/22/2018 None Full Exam - General 1994 Psychiatric orientation/consciousness Overall: oriented to person, place and time 01/22/2018 None Full Exam - General 1994 Constitutional general appearance Development: well developed 10/22/2017 None Full Exam - General 1994 Constitutional general appearance Development: appears stated age 0110/22/2017 None Full Exam - General 1994 Eyes pupils and irises Overall: pupils equal, round, reactive to light and accomodation 10/22/2017 None Full Exam - General 1994 Ears/Nose/Throat otoscopic exam Overall: external auditory canals clear 10/22/2017 None Full Exam - General 1994 Ears/Nose/Throat otoscopic exam Overall: tympanic membranes clear 10/22/2017 None Full Exam - General 1994 Ears/Nose/Throat oral cavity/pharynx/larynx Overall: oral mucosa clear 10/22/2017 None Full Exam - General 1994 Respiratory auscultation Overall: breath sounds clear bilaterally 10/22/2017 None Full Exam - General 1994 Respiratory respiratory effort/rhythm Overall: no retractions 10/22/2017 None Full Exam - General 1994 Respiratory respiratory effort/rhythm Overall: normal rate 10/22/2017 None Full Exam - General 1994 Cardiovascular extremities Overall: no clubbing 10/22/2017 None Full Exam - General 1994 Cardiovascular auscultation of heart Rate: regular rate 10/22/2017 None Full Exam - General 1994 Cardiovascular auscultation of heart Rhythm: regular rhythm 10/22/2017 None Full Exam - General 1994 Cardiovascular auscultation of heart Heart sounds: pericardial rub 10/22/2017 None Full Exam - General 1994 Abdomen abdominal exam Overall: normal bowel sounds 10/22/2017 None Full Exam - General 1994 Abdomen abdominal exam Skin: presence of a scar 10/22/2017 from recent laproscopic surgery Full Exam - General 1994 Abdomen abdominal exam Epigastric: tender to palpation 10/22/2017 None Full Exam - General 1994 Musculoskeletal spine, ribs and pelvis Overall: spine benign 10/22/2017 None Full Exam - General 1994 Musculoskeletal spine, ribs and pelvis Overall: sacroiliac joint benign 10/22/2017 None Full Exam - General 1994 Musculoskeletal spine, ribs and pelvis Overall: good posture 10/22/2017 None Full Exam - General 1994 Musculoskeletal head and neck Overall: head atraumatic 10/22/2017 None Full Exam - General 1994 Musculoskeletal head and neck Overall: cervical spine benign 10/22/2017 None Full Exam - General 1994 Psychiatric orientation/consciousness Overall: oriented to person, place and time 10/22/2017 None Full Exam - General 1994 Constitutional general appearance Overall: well developed 08/22/2017 None Full Exam - General 1994 Constitutional general appearance Overall: in no acute distress 08/22/2017 None Full Exam - General 1994 Constitutional general appearance Overall: well nourished 08/22/2017 None Full Exam - General 1994 Eyes conjunctiva /eyelids Overall: conjunctiva clear 08/22/2017 None Full Exam - General 1994 Eyes conjunctiva /eyelids Overall: eyelids normal 08/22/2017 None Full Exam - General 1994 Ears/Nose/Throat lips/teeth/gingiva Overall: benign lips 08/22/2017 None Full Exam - General 1994 Respiratory respiratory effort/rhythm Overall: no retractions 08/22/2017 None Full Exam - General 1994 Respiratory respiratory effort/rhythm Overall: normal rate 08/22/2017 None Full Exam - General 1994 Musculoskeletal head and neck Overall: head atraumatic 08/22/2017 None Full Exam - General 1994 Neurologic cranial nerves Overall: crainial nerves 2 - 12 grossly intact 08/22/2017 None Full Exam - General 1994 Psychiatric orientation/consciousness Overall: oriented to person, place and time 08/22/2017 None Full Exam - General 1994 Psychiatric mood and affect Overall: normal mood and affect 08/22/2017 None Full Exam - General 1994 Psychiatric appearance Overall: well-groomed, good eye contact 08/22/2017 None Full Exam - Dermatology Constitutional general appearance Overall: well nourished 08/15/2017 None Full Exam - Dermatology Constitutional general appearance Overall: well developed 08/15/2017 None Full Exam - Dermatology Constitutional general appearance Overall: in no acute distress 08/15/2017 None Full Exam - Dermatology Eyes conjunctiva/ eyelids Overall: clear conjunctiva bilaterally 08/15/2017 None Full Exam - Dermatology Eyes conjunctiva/ eyelids Overall: normal eyelids 08/15/2017 None Full Exam - Dermatology Ears/Nose/Throat lips/teeth/gingiva Overall: benign lips 08/15/2017 None Full Exam - Dermatology Ears/Nose/Throat oropharynx Overall: clear oral mucosa 08/15/2017 None Full Exam - Dermatology Respiratory respiratory effort/rhythm Overall: no retractions 08/15/2017 None Full Exam - Dermatology Respiratory respiratory effort/rhythm Overall: normal rate 08/15/2017 None Full Exam - Dermatology Respiratory auscultation Overall: breath sounds clear bilaterally 08/15/2017 None Full Exam - Dermatology Integument insp & palp - left lower extremity Lesion: wheal 08/15/2017 None Full Exam - Dermatology Integument insp & palp - left lower extremity Location: on the thigh 08/15/2017 None Full Exam - Dermatology Integument insp & palp - left lower extremity Location: on the knee 08/15/2017 None Full Exam - Dermatology Integument insp & palp - left lower extremity Color: red 08/15/2017 None Full Exam - Dermatology Integument insp & palp - right lower extremity Lesion: wheal 08/15/2017 None Full Exam - Dermatology Integument insp & palp - right lower extremity Location: on the thigh 08/15/2017 None Full Exam - Dermatology Integument insp & palp - right lower extremity Location: on the knee 08/15/2017 None Full Exam - Dermatology Integument insp & palp - right lower extremity Color: erythematous 08/15/2017 None Full Exam - Dermatology Integument insp & palp - left upper extremity Lesion: wheal 08/15/2017 None Full Exam - Dermatology Integument insp & palp - left upper extremity Location: on the forearm 08/15/2017 None Full Exam - Dermatology Integument insp & palp - left upper extremity Color: erythematous 08/15/2017 None Full Exam - Dermatology Integument insp & palp - right upper extremity Lesion: wheal 08/15/2017 None Full Exam - Dermatology Integument insp & palp - right upper extremity Location: on the forearm 08/15/2017 None Full Exam - Dermatology Integument insp & palp - right upper extremity Color: erythematous 08/15/2017 None Full Exam - Dermatology Psychiatric orientation Overall: oriented to person, place and time 08/15/2017 None Full Exam - Dermatology Psychiatric mood and affect Overall: normal mood and affect 08/15/2017 None Full Exam - General 1994 Constitutional general appearance Development: well developed 06/19/2017 None Full Exam - General 1994 Constitutional general appearance Development: appears stated age 0906/19/2017 None Full Exam - General 1994 Eyes pupils and irises Overall: pupils equal, round, reactive to light and accomodation 06/19/2017 None Full Exam - General 1994 Ears/Nose/Throat otoscopic exam Overall: external auditory canals clear 06/19/2017 None Full Exam - General 1994 Ears/Nose/Throat otoscopic exam Overall: tympanic membranes clear 06/19/2017 None Full Exam - General 1994 Ears/Nose/Throat oral cavity/pharynx/larynx Overall: oral mucosa clear 06/19/2017 None Full Exam - General 1994 Respiratory auscultation Overall: breath sounds clear bilaterally 06/19/2017 None Full Exam - General 1994 Respiratory respiratory effort/rhythm Overall: no retractions 06/19/2017 None Full Exam - General 1994 Respiratory respiratory effort/rhythm Overall: normal rate 06/19/2017 None Full Exam - General 1994 Cardiovascular extremities Overall: no clubbing 06/19/2017 None Full Exam - General 1994 Cardiovascular auscultation of heart Rate: regular rate 06/19/2017 None Full Exam - General 1994 Cardiovascular auscultation of heart Rhythm: regular rhythm 06/19/2017 None Full Exam - General 1994 Cardiovascular auscultation of heart Heart sounds: pericardial rub 06/19/2017 None Full Exam - General 1994 Abdomen abdominal exam Overall: normal bowel sounds 06/19/2017 None Full Exam - General 1994 Abdomen abdominal exam Skin: presence of a scar 06/19/2017 from recent laproscopic surgery Full Exam - General 1994 Abdomen abdominal exam Epigastric: tender to palpation 06/19/2017 None Full Exam - General 1994 Lymphatic neck nodes Overall: anterior cervical chain benign 06/19/2017 None Full Exam - General 1994 Lymphatic neck nodes Overall: posterior cervical chain benign 06/19/2017 None Full Exam - General 1994 Musculoskeletal spine, ribs and pelvis Overall: spine benign 06/19/2017 None Full Exam - General 1994 Musculoskeletal spine, ribs and pelvis Overall: sacroiliac joint benign 06/19/2017 None Full Exam - General 1994 Musculoskeletal spine, ribs and pelvis Overall: good posture 06/19/2017 None Full Exam - General 1994 Musculoskeletal head and neck Overall: head atraumatic 06/19/2017 None Full Exam - General 1994 Musculoskeletal head and neck Overall: cervical spine benign 06/19/2017 None Full Exam - General 1994 Neurologic cranial nerves Overall: crainial nerves 2 - 12 grossly intact 06/19/2017 None Full Exam - General 1994 Psychiatric orientation/consciousness Overall: oriented to person, place and time 06/19/2017 None Full Exam - General 1994 Constitutional general appearance Development: well developed 02/13/2017 None Full Exam - General 1994 Constitutional general appearance Development: appears stated age 0502/13/2017 None Full Exam - General 1994 Eyes pupils and irises Overall: pupils equal, round, reactive to light and accomodation 02/13/2017 None Full Exam - General 1994 Ears/Nose/Throat otoscopic exam Overall: external auditory canals clear 02/13/2017 None Full Exam - General 1994 Ears/Nose/Throat otoscopic exam Overall: tympanic membranes clear 02/13/2017 None Full Exam - General 1994 Ears/Nose/Throat oral cavity/pharynx/larynx Overall: oral mucosa clear 02/13/2017 None Full Exam - General 1994 Respiratory auscultation Overall: breath sounds clear bilaterally 02/13/2017 None Full Exam - General 1994 Respiratory respiratory effort/rhythm Overall: no retractions 02/13/2017 None Full Exam - General 1994 Respiratory respiratory effort/rhythm Overall: normal rate 02/13/2017 None Full Exam - General 1994 Cardiovascular extremities Overall: no clubbing 02/13/2017 None Full Exam - General 1994 Cardiovascular auscultation of heart Rate: regular rate 02/13/2017 None Full Exam - General 1994 Cardiovascular auscultation of heart Rhythm: regular rhythm 02/13/2017 None Full Exam - General 1994 Cardiovascular auscultation of heart Heart sounds: pericardial rub 02/13/2017 None Full Exam - General 1994 Abdomen abdominal exam Overall: normal bowel sounds 02/13/2017 None Full Exam - General 1994 Abdomen abdominal exam Skin: presence of a scar 02/13/2017 from recent laproscopic surgery Full Exam - General 1994 Lymphatic neck nodes Overall: anterior cervical chain benign 02/13/2017 None Full Exam - General 1994 Lymphatic neck nodes Overall: posterior cervical chain benign 02/13/2017 None Full Exam - General 1994 Musculoskeletal spine, ribs and pelvis Overall: spine benign 02/13/2017 None Full Exam - General 1994 Musculoskeletal spine, ribs and pelvis Overall: sacroiliac joint benign 02/13/2017 None Full Exam - General 1994 Musculoskeletal spine, ribs and pelvis Overall: good posture 02/13/2017 None Full Exam - General 1994 Musculoskeletal head and neck Overall: head atraumatic 02/13/2017 None Full Exam - General 1994 Musculoskeletal head and neck Overall: cervical spine benign 02/13/2017 None Full Exam - General 1994 Neurologic cranial nerves Overall: crainial nerves 2 - 12 grossly intact 02/13/2017 None Full Exam - General 1994 Psychiatric orientation/consciousness Overall: oriented to person, place and time 02/13/2017 None Full Exam - General 1994 Abdomen abdominal exam Epigastric: tender to palpation 02/13/2017 None Full Exam - General 1994 Eyes pupils and irises Overall: pupils equal, round, reactive to light and accomodation 02/05/2017 None Full Exam - General 1994 Ears/Nose/Throat oral cavity/pharynx/larynx Overall: oral mucosa clear 02/05/2017 None Full Exam - General 1994 Respiratory auscultation Overall: breath sounds clear bilaterally 02/05/2017 None Full Exam - General 1994 Respiratory respiratory effort/rhythm Overall: no retractions 02/05/2017 None Full Exam - General 1994 Respiratory respiratory effort/rhythm Overall: normal rate 02/05/2017 None Full Exam - General 1994 Cardiovascular auscultation of heart Rate: regular rate 02/05/2017 None Full Exam - General 1994 Cardiovascular auscultation of heart Rhythm: regular rhythm 02/05/2017 None Full Exam - General 1994 Musculoskeletal head and neck Overall: head atraumatic 02/05/2017 None Full Exam - General 1994 Neurologic cranial nerves Overall: crainial nerves 2 - 12 grossly intact 02/05/2017 None Full Exam - General 1994 Psychiatric orientation/consciousness Overall: oriented to person, place and time 02/05/2017 None Full Exam - General 1994 Constitutional general appearance Overall: well developed 02/05/2017 None Full Exam - General 1994 Constitutional general appearance Overall: in no acute distress 02/05/2017 None Full Exam - General 1994 Constitutional general appearance Overall: well nourished 02/05/2017 None Full Exam - General 1994 Eyes conjunctiva /eyelids Overall: conjunctiva clear 02/05/2017 None Full Exam - General 1994 Eyes conjunctiva /eyelids Overall: eyelids normal 02/05/2017 None Full Exam - General 1994 Ears/Nose/Throat lips/teeth/gingiva Overall: benign lips 02/05/2017 None Full Exam - General 1994 Musculoskeletal spine, ribs and pelvis Spine: tender @ lumbar spine 02/05/2017 None Full Exam - General 1994 Psychiatric mood and affect Overall: normal mood and affect 02/05/2017 None Full Exam - General 1994 Ears/Nose/Throat oral cavity/pharynx/larynx Overall: oral mucosa clear 02/02/2017 None Full Exam - General 1994 Respiratory auscultation Overall: breath sounds clear bilaterally 02/02/2017 None Full Exam - General 1994 Respiratory respiratory effort/rhythm Overall: no retractions 02/02/2017 None Full Exam - General 1994 Respiratory respiratory effort/rhythm Overall: normal rate 02/02/2017 None Full Exam - General 1994 Cardiovascular extremities Overall: no clubbing 02/02/2017 None Full Exam - General 1994 Cardiovascular auscultation of heart Rate: regular rate 02/02/2017 None Full Exam - General 1994 Cardiovascular auscultation of heart Rhythm: regular rhythm 02/02/2017 None Full Exam - General 1994 Abdomen abdominal exam Overall: normal bowel sounds 02/02/2017 None Full Exam - General 1994 Abdomen abdominal exam Epigastric: tender to palpation 02/02/2017 None Full Exam - General 1994 Musculoskeletal spine, ribs and pelvis Overall: good posture 02/02/2017 None Full Exam - General 1994 Musculoskeletal head and neck Overall: head atraumatic 02/02/2017 None Full Exam - General 1994 Neurologic cranial nerves Overall: crainial nerves 2 - 12 grossly intact 02/02/2017 None Full Exam - General 1994 Psychiatric orientation/consciousness Overall: oriented to person, place and time 02/02/2017 None Full Exam - General 1994 Constitutional general appearance Overall: well developed 02/02/2017 None Full Exam - General 1994 Constitutional general appearance Overall: well nourished 02/02/2017 None Full Exam - General 1994 Eyes conjunctiva /eyelids Overall: conjunctiva clear 02/02/2017 None Full Exam - General 1994 Eyes conjunctiva /eyelids Overall: eyelids normal 02/02/2017 None Full Exam - General 1994 Ears/Nose/Throat lips/teeth/gingiva Overall: benign lips 02/02/2017 None Full Exam - General 1994 Musculoskeletal spine, ribs and pelvis Spine: tender @ lumbar spine 02/02/2017 None Full Exam - General 1994 Psychiatric mood and affect Overall: normal mood and affect 02/02/2017 None Full Exam - General 1994 Psychiatric appearance Overall: well-groomed, good eye contact 02/02/2017 None Full Exam - General 1994 Constitutional general appearance Development: well developed 12/12/2016 None Full Exam - General 1994 Constitutional general appearance Development: appears stated age 0212/12/2016 None Full Exam - General 1994 Eyes pupils and irises Overall: pupils equal, round, reactive to light and accomodation 12/12/2016 None Full Exam - General 1994 Ears/Nose/Throat otoscopic exam Overall: external auditory canals clear 12/12/2016 None Full Exam - General 1994 Ears/Nose/Throat otoscopic exam Overall: tympanic membranes clear 12/12/2016 None Full Exam - General 1994 Ears/Nose/Throat oral cavity/pharynx/larynx Overall: oral mucosa clear 12/12/2016 None Full Exam - General 1994 Respiratory auscultation Overall: breath sounds clear bilaterally 12/12/2016 None Full Exam - General 1994 Respiratory respiratory effort/rhythm Overall: no retractions 12/12/2016 None Full Exam - General 1994 Respiratory respiratory effort/rhythm Overall: normal rate 12/12/2016 None Full Exam - General 1994 Cardiovascular extremities Overall: no clubbing 12/12/2016 None Full Exam - General 1994 Cardiovascular auscultation of heart Rate: regular rate 12/12/2016 None Full Exam - General 1994 Cardiovascular auscultation of heart Rhythm: regular rhythm 12/12/2016 None Full Exam - General 1994 Cardiovascular auscultation of heart Heart sounds: pericardial rub 12/12/2016 None Full Exam - General 1994 Abdomen abdominal exam Overall: no tenderness 12/12/2016 None Full Exam - General 1994 Abdomen abdominal exam Overall: normal bowel sounds 12/12/2016 None Full Exam - General 1994 Abdomen abdominal exam Skin: presence of a scar 12/12/2016 from recent laproscopic surgery Full Exam - General 1994 Musculoskeletal spine, ribs and pelvis Overall: spine benign 12/12/2016 None Full Exam - General 1994 Musculoskeletal spine, ribs and pelvis Overall: sacroiliac joint benign 12/12/2016 None Full Exam - General 1994 Musculoskeletal spine, ribs and pelvis Overall: good posture 12/12/2016 None Full Exam - General 1994 Musculoskeletal head and neck Overall: head atraumatic 12/12/2016 None Full Exam - General 1994 Musculoskeletal head and neck Overall: cervical spine benign 12/12/2016 None Full Exam - General 1994 Neurologic cranial nerves Overall: crainial nerves 2 - 12 grossly intact 12/12/2016 None Full Exam - General 1994 Psychiatric orientation/consciousness Overall: oriented to person, place and time 12/12/2016 None Full Exam - General 1994 Eyes pupils and irises Overall: pupils equal, round, reactive to light and accomodation 06/21/2016 None Full Exam - General 1994 Ears/Nose/Throat otoscopic exam Overall: external auditory canals clear 06/21/2016 None Full Exam - General 1994 Ears/Nose/Throat oral cavity/pharynx/larynx Overall: oral mucosa clear 06/21/2016 None Full Exam - General 1994 Respiratory auscultation Overall: breath sounds clear bilaterally 06/21/2016 None Full Exam - General 1994 Respiratory respiratory effort/rhythm Overall: no retractions 06/21/2016 None Full Exam - General 1994 Respiratory respiratory effort/rhythm Overall: normal rate 06/21/2016 None Full Exam - General 1994 Cardiovascular extremities Overall: no clubbing 06/21/2016 None Full Exam - General 1994 Cardiovascular auscultation of heart Rate: regular rate 06/21/2016 None Full Exam - General 1994 Cardiovascular auscultation of heart Rhythm: regular rhythm 06/21/2016 None Full Exam - General 1994 Cardiovascular auscultation of heart Heart sounds: pericardial rub 06/21/2016 None Full Exam - General 1994 Musculoskeletal spine, ribs and pelvis Overall: good posture 06/21/2016 None Full Exam - General 1994 Musculoskeletal head and neck Overall: head atraumatic 06/21/2016 None Full Exam - General 1994 Neurologic cranial nerves Overall: crainial nerves 2 - 12 grossly intact 06/21/2016 None Full Exam - General 1994 Psychiatric orientation/consciousness Overall: oriented to person, place and time 06/21/2016 None Full Exam - General 1994 Constitutional general appearance Overall: well developed 06/21/2016 None Full Exam - General 1994 Constitutional general appearance Overall: in no acute distress 06/21/2016 None Full Exam - General 1994 Constitutional general appearance Overall: well nourished 06/21/2016 None Full Exam - General 1994 Eyes conjunctiva /eyelids Overall: conjunctiva clear 06/21/2016 None Full Exam - General 1994 Ears/Nose/Throat otoscopic exam Tympanic membrane: air- fluid level 06/21/2016 None Full Exam - General 1994 Ears/Nose/Throat oral cavity/pharynx/larynx Posterior Pharynx: clear post nasal drainage 06/21/2016 None Full Exam - General 1994 Ears/Nose/Throat oral cavity/pharynx/larynx Oropharynx: erythema 06/21/2016 None Full Exam - General 1994 Ears/Nose/Throat lips/teeth/gingiva Overall: benign lips 06/21/2016 None Full Exam - General 1994 Psychiatric mood and affect Overall: normal mood and affect 06/21/2016 None Full Exam - General 1994 Psychiatric appearance Overall: well-groomed, good eye contact 06/21/2016 None Full Exam - General 1994 Psychiatric speech Overall: normal quality, no aphasia 06/21/2016 None Full Exam - General 1994 Psychiatric speech Overall: normal quality, quantity, rate 06/21/2016 None Full Exam - General 1994 Ears/Nose/Throat internal nose Sinus tenderness: right maxillary 06/21/2016 None Full Exam - General 1994 Ears/Nose/Throat internal nose Sinus tenderness: left maxillary 06/21/2016 None Full Exam - General 1994 Ears/Nose/Throat internal nose Sinus tenderness: left frontal 06/21/2016 None Full Exam - General 1994 Ears/Nose/Throat internal nose Sinus tenderness: right frontal 06/21/2016 None Full Exam - General 1994 Constitutional general appearance Development: well developed 05/24/2016 None Full Exam - General 1994 Constitutional general appearance Development: appears stated age 0805/24/2016 None Full Exam - General 1994 Eyes pupils and irises Overall: pupils equal, round, reactive to light and accomodation 05/24/2016 None Full Exam - General 1994 Ears/Nose/Throat otoscopic exam Overall: external auditory canals clear 05/24/2016 None Full Exam - General 1994 Ears/Nose/Throat otoscopic exam Overall: tympanic membranes clear 05/24/2016 None Full Exam - General 1994 Ears/Nose/Throat oral cavity/pharynx/larynx Overall: oral mucosa clear 05/24/2016 None Full Exam - General 1994 Respiratory auscultation Overall: breath sounds clear bilaterally 05/24/2016 None Full Exam - General 1994 Respiratory respiratory effort/rhythm Overall: no retractions 05/24/2016 None Full Exam - General 1994 Respiratory respiratory effort/rhythm Overall: normal rate 05/24/2016 None Full Exam - General 1994 Cardiovascular extremities Overall: no clubbing 05/24/2016 None Full Exam - General 1994 Cardiovascular auscultation of heart Rate: regular rate 05/24/2016 None Full Exam - General 1994 Cardiovascular auscultation of heart Rhythm: regular rhythm 05/24/2016 None Full Exam - General 1994 Cardiovascular auscultation of heart Heart sounds: pericardial rub 05/24/2016 None Full Exam - General 1994 Abdomen abdominal exam Overall: no tenderness 05/24/2016 None Full Exam - General 1994 Abdomen abdominal exam Overall: normal bowel sounds 05/24/2016 None Full Exam - General 1994 Abdomen abdominal exam Skin: presence of a scar 05/24/2016 from recent laproscopic surgery Full Exam - General 1994 Musculoskeletal spine, ribs and pelvis Overall: spine benign 05/24/2016 None Full Exam - General 1994 Musculoskeletal spine, ribs and pelvis Overall: sacroiliac joint benign 05/24/2016 None Full Exam - General 1994 Musculoskeletal spine, ribs and pelvis Overall: good posture 05/24/2016 None Full Exam - General 1994 Musculoskeletal head and neck Overall: head atraumatic 05/24/2016 None Full Exam - General 1994 Musculoskeletal head and neck Overall: cervical spine benign 05/24/2016 None Full Exam - General 1994 Neurologic cranial nerves Overall: crainial nerves 2 - 12 grossly intact 05/24/2016 None Full Exam - General 1994 Psychiatric orientation/consciousness Overall: oriented to person, place and time 05/24/2016 None Full Exam - General 1994 Lymphatic neck nodes Overall: anterior cervical chain benign 05/24/2016 None Full Exam - General 1994 Lymphatic neck nodes Overall: posterior cervical chain benign 05/24/2016 None Full Exam - General 1994 Constitutional general appearance Development: well developed 11/03/2015 None Full Exam - General 1994 Constitutional general appearance Development: appears stated age 0111/03/2015 None Full Exam - General 1994 Eyes pupils and irises Overall: pupils equal, round, reactive to light and accomodation 11/03/2015 None Full Exam - General 1994 Ears/Nose/Throat otoscopic exam Overall: external auditory canals clear 11/03/2015 None Full Exam - General 1994 Ears/Nose/Throat otoscopic exam Overall: tympanic membranes clear 11/03/2015 None Full Exam - General 1994 Ears/Nose/Throat oral cavity/pharynx/larynx Overall: oral mucosa clear 11/03/2015 None Full Exam - General 1994 Respiratory auscultation Overall: breath sounds clear bilaterally 11/03/2015 None Full Exam - General 1994 Respiratory respiratory effort/rhythm Overall: no retractions 11/03/2015 None Full Exam - General 1994 Respiratory respiratory effort/rhythm Overall: normal rate 11/03/2015 None Full Exam - General 1994 Cardiovascular extremities Overall: no clubbing 11/03/2015 None Full Exam - General 1994 Cardiovascular auscultation of heart Rate: regular rate 11/03/2015 None Full Exam - General 1994 Cardiovascular auscultation of heart Rhythm: regular rhythm 11/03/2015 None Full Exam - General 1994 Cardiovascular auscultation of heart Heart sounds: pericardial rub 11/03/2015 None Full Exam - General 1994 Abdomen abdominal exam Overall: no tenderness 11/03/2015 None Full Exam - General 1994 Abdomen abdominal exam Overall: normal bowel sounds 11/03/2015 None Full Exam - General 1994 Musculoskeletal spine, ribs and pelvis Overall: spine benign 11/03/2015 None Full Exam - General 1994 Musculoskeletal spine, ribs and pelvis Overall: sacroiliac joint benign 11/03/2015 None Full Exam - General 1994 Musculoskeletal spine, ribs and pelvis Overall: good posture 11/03/2015 None Full Exam - General 1994 Musculoskeletal head and neck Overall: head atraumatic 11/03/2015 None Full Exam - General 1994 Musculoskeletal head and neck Overall: cervical spine benign 11/03/2015 None Full Exam - General 1994 Neurologic cranial nerves Overall: crainial nerves 2 - 12 grossly intact 11/03/2015 None Full Exam - General 1994 Psychiatric orientation/consciousness Overall: oriented to person, place and time 11/03/2015 None Full Exam - General 1994 Abdomen abdominal exam Skin: presence of a scar 11/03/2015 from recent laproscopic surgery Full Exam - General 1994 Constitutional general appearance Overall: well nourished 02/02/2015 None Full Exam - General 1994 Constitutional general appearance Overall: well developed 02/02/2015 None Full Exam - General 1994 Constitutional general appearance Overall: in no acute distress 02/02/2015 None Full Exam - General 1994 Psychiatric orientation/consciousness Overall: oriented to person, place and time 02/02/2015 None Full Exam - General 1994 Psychiatric mood and affect Mood: happy 02/02/2015 None Full Exam - General 1994 Psychiatric mood and affect Overall: normal mood and affect 02/02/2015 None Full Exam - General 1994 Integument inspection of skin Location: left arm 02/02/2015 None Full Exam - General 1994 Integument inspection of skin Rash/Lesions: macule 02/02/2015 None Full Exam - General 1994 Integument inspection of skin Pigmentation: hyperpigmentation 02/02/2015 Consent signed and on chart. The patient's mole was cleansed with alcohol and infiltrated with lidocaine with epinephrine. The lesion was cleansed with iodine, and draped in sterile fashion. The lesion was then removed with sharp excision using an elliptical excision. The lesion had extension of dark brown pigmentation at the base of the lesion, an attempt was made to excise the rest of the darkly pigmented tissue, but the extension of the lesion appeared to be quite extensive. The surgical site was closed with 4-0 Vicryl with 6 # sutures. Dressing placed on lesion prior to pt discharge. Full Exam - General 1994 Constitutional general appearance Development: well developed 01/25/2015 None Full Exam - General 1994 Constitutional general appearance Development: appears stated age 0401/25/2015 None Full Exam - General 1994 Eyes pupils and irises Overall: pupils equal, round, reactive to light and accomodation 01/25/2015 None Full Exam - General 1994 Ears/Nose/Throat otoscopic exam Overall: external auditory canals clear 01/25/2015 None Full Exam - General 1994 Ears/Nose/Throat otoscopic exam Overall: tympanic membranes clear 01/25/2015 None Full Exam - General 1994 Ears/Nose/Throat oral cavity/pharynx/larynx Overall: oral mucosa clear 01/25/2015 None Full Exam - General 1994 Respiratory auscultation Overall: breath sounds clear bilaterally 01/25/2015 None Full Exam - General 1994 Respiratory respiratory effort/rhythm Overall: no retractions 01/25/2015 None Full Exam - General 1994 Respiratory respiratory effort/rhythm Overall: normal rate 01/25/2015 None Full Exam - General 1994 Cardiovascular extremities Overall: no clubbing 01/25/2015 None Full Exam - General 1994 Cardiovascular auscultation of heart Rate: regular rate 01/25/2015 None Full Exam - General 1994 Cardiovascular auscultation of heart Rhythm: regular rhythm 01/25/2015 None Full Exam - General 1994 Cardiovascular auscultation of heart Heart sounds: pericardial rub 01/25/2015 None Full Exam - General 1994 Abdomen abdominal exam Overall: no tenderness 01/25/2015 None Full Exam - General 1994 Abdomen abdominal exam Overall: normal bowel sounds 01/25/2015 None Full Exam - General 1994 Musculoskeletal spine, ribs and pelvis Overall: spine benign 01/25/2015 None Full Exam - General 1994 Musculoskeletal spine, ribs and pelvis Overall: sacroiliac joint benign 01/25/2015 None Full Exam - General 1994 Musculoskeletal spine, ribs and pelvis Overall: good posture 01/25/2015 None Full Exam - General 1994 Musculoskeletal head and neck Overall: head atraumatic 01/25/2015 None Full Exam - General 1994 Musculoskeletal head and neck Overall: cervical spine benign 01/25/2015 None Full Exam - General 1994 Neurologic cranial nerves Overall: crainial nerves 2 - 12 grossly intact 01/25/2015 None Full Exam - General 1994 Psychiatric orientation/consciousness Overall: oriented to person, place and time 01/25/2015 None Full Exam - General 1994 Constitutional general appearance Development: well developed 11/26/2014 None Full Exam - General 1994 Constitutional general appearance Development: appears stated age 0211/26/2014 None Full Exam - General 1994 Eyes pupils and irises Overall: pupils equal, round, reactive to light and accomodation 11/26/2014 None Full Exam - General 1994 Ears/Nose/Throat otoscopic exam Overall: external auditory canals clear 11/26/2014 None Full Exam - General 1994 Ears/Nose/Throat otoscopic exam Overall: tympanic membranes clear 11/26/2014 None Full Exam - General 1994 Ears/Nose/Throat oral cavity/pharynx/larynx Overall: oral mucosa clear 11/26/2014 None Full Exam - General 1994 Respiratory auscultation Overall: breath sounds clear bilaterally 11/26/2014 None Full Exam - General 1994 Respiratory respiratory effort/rhythm Overall: no retractions 11/26/2014 None Full Exam - General 1994 Respiratory respiratory effort/rhythm Overall: normal rate 11/26/2014 None Full Exam - General 1994 Cardiovascular extremities Overall: no clubbing 11/26/2014 None Full Exam - General 1994 Cardiovascular auscultation of heart Rate: regular rate 11/26/2014 None Full Exam - General 1994 Cardiovascular auscultation of heart Rhythm: regular rhythm 11/26/2014 None Full Exam - General 1994 Cardiovascular auscultation of heart Heart sounds: pericardial rub 11/26/2014 None Full Exam - General 1994 Abdomen abdominal exam Overall: no tenderness 11/26/2014 None Full Exam - General 1994 Abdomen abdominal exam Overall: normal bowel sounds 11/26/2014 None Full Exam - General 1994 Musculoskeletal spine, ribs and pelvis Overall: spine benign 11/26/2014 None Full Exam - General 1994 Musculoskeletal spine, ribs and pelvis Overall: sacroiliac joint benign 11/26/2014 None Full Exam - General 1994 Musculoskeletal spine, ribs and pelvis Overall: good posture 11/26/2014 None Full Exam - General 1994 Musculoskeletal head and neck Overall: head atraumatic 11/26/2014 None Full Exam - General 1994 Musculoskeletal head and neck Overall: cervical spine benign 11/26/2014 None Full Exam - General 1994 Neurologic cranial nerves Overall: crainial nerves 2 - 12 grossly intact 11/26/2014 None Full Exam - General 1994 Psychiatric orientation/consciousness Overall: oriented to person, place and time 11/26/2014 None Full Exam - General 1994 Constitutional general appearance Development: well developed 09/15/2014 None Full Exam - General 1994 Constitutional general appearance Development: appears stated age 1209/15/2014 None Full Exam - General 1994 Eyes pupils and irises Overall: pupils equal, round, reactive to light and accomodation 09/15/2014 None Full Exam - General 1994 Respiratory auscultation Overall: breath sounds clear bilaterally 09/15/2014 None Full Exam - General 1994 Respiratory respiratory effort/rhythm Overall: no retractions 09/15/2014 None Full Exam - General 1994 Respiratory respiratory effort/rhythm Overall: normal rate 09/15/2014 None Full Exam - General 1994 Cardiovascular extremities Overall: no clubbing 09/15/2014 None Full Exam - General 1994 Cardiovascular auscultation of heart Rate: regular rate 09/15/2014 None Full Exam - General 1994 Cardiovascular auscultation of heart Rhythm: regular rhythm 09/15/2014 None Full Exam - General 1994 Cardiovascular auscultation of heart Heart sounds: pericardial rub 09/15/2014 None Full Exam - General 1994 Musculoskeletal lower extremity Inspection - thigh: normal appearance 09/15/2014 None Full Exam - General 1994 Musculoskeletal lower extremity Palpation - thigh: tenderness 09/15/2014 over greater trochanter region Full Exam - General 1994 Musculoskeletal spine, ribs and pelvis Sacroiliac joints: tender right sacroiliac joint 09/15/2014 None Full Exam - General 1994 Musculoskeletal spine, ribs and pelvis Sacroiliac joints: tender left sacroiliac joint 09/15/2014 None Full Exam - General 1994 Musculoskeletal head and neck Overall: head atraumatic 09/15/2014 None Full Exam - General 1994 Musculoskeletal head and neck Overall: cervical spine benign 09/15/2014 None Full Exam - General 1994 Neurologic cranial nerves Overall: crainial nerves 2 - 12 grossly intact 09/15/2014 None Full Exam - General 1994 Psychiatric orientation/consciousness Overall: oriented to person, place and time 09/15/2014 None Full Exam - General 1994 Constitutional general appearance Development: well developed 08/13/2014 None Full Exam - General 1994 Constitutional general appearance Development: appears stated age 1008/13/2014 None Full Exam - General 1994 Eyes pupils and irises Overall: pupils equal, round, reactive to light and accomodation 08/13/2014 None Full Exam - General 1994 Respiratory auscultation Overall: breath sounds clear bilaterally 08/13/2014 None Full Exam - General 1994 Respiratory respiratory effort/rhythm Overall: no retractions 08/13/2014 None Full Exam - General 1994 Respiratory respiratory effort/rhythm Overall: normal rate 08/13/2014 None Full Exam - General 1994 Cardiovascular extremities Overall: no clubbing 08/13/2014 None Full Exam - General 1994 Cardiovascular auscultation of heart Rate: regular rate 08/13/2014 None Full Exam - General 1994 Cardiovascular auscultation of heart Rhythm: regular rhythm 08/13/2014 None Full Exam - General 1994 Cardiovascular auscultation of heart Heart sounds: pericardial rub 08/13/2014 None Full Exam - General 1994 Musculoskeletal head and neck Overall: head atraumatic 08/13/2014 None Full Exam - General 1994 Musculoskeletal head and neck Overall: cervical spine benign 08/13/2014 None Full Exam - General 1994 Neurologic cranial nerves Overall: crainial nerves 2 - 12 grossly intact 08/13/2014 None Full Exam - General 1994 Psychiatric orientation/consciousness Overall: oriented to person, place and time 08/13/2014 None Full Exam - General 1994 Musculoskeletal spine, ribs and pelvis Sacroiliac joints: tender right sacroiliac joint 08/13/2014 None Full Exam - General 1994 Musculoskeletal spine, ribs and pelvis Sacroiliac joints: tender left sacroiliac joint 08/13/2014 None Full Exam - General 1994 Musculoskeletal lower extremity Inspection - thigh: normal appearance 08/13/2014 None Full Exam - General 1994 Musculoskeletal lower extremity Palpation - thigh: tenderness 08/13/2014 over greater trochanter region Full Exam - General 1994 Constitutional general appearance Development: well developed 08/03/2014 None Full Exam - General 1994 Constitutional general appearance Development: appears stated age 1008/03/2014 None Full Exam - General 1994 Eyes pupils and irises Overall: pupils equal, round, reactive to light and accomodation 08/03/2014 None Full Exam - General 1994 Ears/Nose/Throat otoscopic exam Overall: external auditory canals clear 08/03/2014 None Full Exam - General 1994 Ears/Nose/Throat oral cavity/pharynx/larynx Overall: oral mucosa clear 08/03/2014 None Full Exam - General 1994 Neck inspection of neck Overall: normal size 08/03/2014 None Full Exam - General 1994 Neck inspection of neck Overall: normal appearance 08/03/2014 None Full Exam - General 1994 Respiratory auscultation Overall: breath sounds clear bilaterally 08/03/2014 None Full Exam - General 1994 Respiratory respiratory effort/rhythm Overall: no retractions 08/03/2014 None Full Exam - General 1994 Respiratory respiratory effort/rhythm Overall: normal rate 08/03/2014 None Full Exam - General 1994 Cardiovascular extremities Overall: no clubbing 08/03/2014 None Full Exam - General 1994 Cardiovascular auscultation of heart Rate: regular rate 08/03/2014 None Full Exam - General 1994 Cardiovascular auscultation of heart Rhythm: regular rhythm 08/03/2014 None Full Exam - General 1994 Cardiovascular auscultation of heart Heart sounds: pericardial rub 08/03/2014 None Full Exam - General 1994 Chest/Breast breast/chest inspection Overall: normal chest shape 08/03/2014 None Full Exam - General 1994 Abdomen abdominal exam Overall: no tenderness 08/03/2014 None Full Exam - General 1994 Abdomen abdominal exam Overall: normal bowel sounds 08/03/2014 None Full Exam - General 1994 Lymphatic neck nodes Overall: anterior cervical chain benign 08/03/2014 None Full Exam - General 1994 Lymphatic neck nodes Overall: posterior cervical chain benign 08/03/2014 None Full Exam - General 1994 Musculoskeletal head and neck Overall: head atraumatic 08/03/2014 None Full Exam - General 1994 Neurologic deep tendon reflexes Overall: deep tendon reflexes intact 08/03/2014 None Full Exam - General 1994 Neurologic cranial nerves Overall: crainial nerves 2 - 12 grossly intact 08/03/2014 None Full Exam - General 1994 Psychiatric orientation/consciousness Overall: oriented to person, place and time 08/03/2014 None Full Exam - General 1994 Ears/Nose/Throat otoscopic exam Overall: tympanic membranes clear 08/03/2014 tender bilateral maxillary and frontal sinuses Full Exam - General 1994 Constitutional general appearance Development: well developed 07/23/2014 None Full Exam - General 1994 Constitutional general appearance Development: appears stated age 1007/23/2014 None Full Exam - General 1994 Eyes pupils and irises Overall: pupils equal, round, reactive to light and accomodation 07/23/2014 None Full Exam - General 1994 Ears/Nose/Throat otoscopic exam Overall: external auditory canals clear 07/23/2014 None Full Exam - General 1994 Ears/Nose/Throat otoscopic exam Overall: tympanic membranes clear 07/23/2014 None Full Exam - General 1994 Ears/Nose/Throat oral cavity/pharynx/larynx Overall: oral mucosa clear 07/23/2014 None Full Exam - General 1994 Respiratory auscultation Overall: breath sounds clear bilaterally 07/23/2014 None Full Exam - General 1994 Respiratory respiratory effort/rhythm Overall: no retractions 07/23/2014 None Full Exam - General 1994 Respiratory respiratory effort/rhythm Overall: normal rate 07/23/2014 None Full Exam - General 1994 Cardiovascular extremities Overall: no clubbing 07/23/2014 None Full Exam - General 1994 Cardiovascular auscultation of heart Rate: regular rate 07/23/2014 None Full Exam - General 1994 Cardiovascular auscultation of heart Rhythm: regular rhythm 07/23/2014 None Full Exam - General 1994 Cardiovascular auscultation of heart Heart sounds: pericardial rub 07/23/2014 None Full Exam - General 1994 Abdomen abdominal exam Overall: no tenderness 07/23/2014 None Full Exam - General 1994 Abdomen abdominal exam Overall: normal bowel sounds 07/23/2014 None Full Exam - General 1994 Musculoskeletal spine, ribs and pelvis Overall: spine benign 07/23/2014 None Full Exam - General 1994 Musculoskeletal spine, ribs and pelvis Overall: sacroiliac joint benign 07/23/2014 None Full Exam - General 1994 Musculoskeletal spine, ribs and pelvis Overall: good posture 07/23/2014 None Full Exam - General 1994 Musculoskeletal head and neck Overall: head atraumatic 07/23/2014 None Full Exam - General 1994 Musculoskeletal head and neck Overall: cervical spine benign 07/23/2014 None Full Exam - General 1994 Neurologic cranial nerves Overall: crainial nerves 2 - 12 grossly intact 07/23/2014 None Full Exam - General 1994 Psychiatric orientation/consciousness Overall: oriented to person, place and time 07/23/2014 None Full Exam - General 1994 Constitutional general appearance Development: well developed 06/29/2014 None Full Exam - General 1994 Constitutional general appearance Development: appears stated age 0906/29/2014 None Full Exam - General 1994 Eyes pupils and irises Overall: pupils equal, round, reactive to light and accomodation 06/29/2014 None Full Exam - General 1994 Ears/Nose/Throat otoscopic exam Overall: external auditory canals clear 06/29/2014 None Full Exam - General 1994 Ears/Nose/Throat otoscopic exam Overall: tympanic membranes clear 06/29/2014 None Full Exam - General 1994 Ears/Nose/Throat oral cavity/pharynx/larynx Overall: oral mucosa clear 06/29/2014 None Full Exam - General 1994 Respiratory auscultation Overall: breath sounds clear bilaterally 06/29/2014 None Full Exam - General 1994 Respiratory respiratory effort/rhythm Overall: no retractions 06/29/2014 None Full Exam - General 1994 Respiratory respiratory effort/rhythm Overall: normal rate 06/29/2014 None Full Exam - General 1994 Cardiovascular extremities Overall: no clubbing 06/29/2014 None Full Exam - General 1994 Cardiovascular auscultation of heart Rate: regular rate 06/29/2014 None Full Exam - General 1994 Cardiovascular auscultation of heart Rhythm: regular rhythm 06/29/2014 None Full Exam - General 1994 Cardiovascular auscultation of heart Heart sounds: pericardial rub 06/29/2014 None Full Exam - General 1994 Abdomen abdominal exam Overall: no tenderness 06/29/2014 None Full Exam - General 1994 Abdomen abdominal exam Overall: normal bowel sounds 06/29/2014 None Full Exam - General 1994 Musculoskeletal spine, ribs and pelvis Overall: spine benign 06/29/2014 None Full Exam - General 1994 Musculoskeletal spine, ribs and pelvis Overall: sacroiliac joint benign 06/29/2014 None Full Exam - General 1994 Musculoskeletal spine, ribs and pelvis Overall: good posture 06/29/2014 None Full Exam - General 1994 Musculoskeletal head and neck Overall: head atraumatic 06/29/2014 None Full Exam - General 1994 Musculoskeletal head and neck Overall: cervical spine benign 06/29/2014 None Full Exam - General 1994 Neurologic cranial nerves Overall: crainial nerves 2 - 12 grossly intact 06/29/2014 None Full Exam - General 1994 Psychiatric orientation/consciousness Overall: oriented to person, place and time 06/29/2014 None Full Exam - General 1994 Constitutional general appearance Development: well developed 04/27/2014 None Full Exam - General 1994 Constitutional general appearance Development: appears stated age 0704/27/2014 None Full Exam - General 1994 Eyes pupils and irises Overall: pupils equal, round, reactive to light and accomodation 04/27/2014 None Full Exam - General 1994 Ears/Nose/Throat otoscopic exam Overall: external auditory canals clear 04/27/2014 None Full Exam - General 1994 Ears/Nose/Throat otoscopic exam Overall: tympanic membranes clear 04/27/2014 None Full Exam - General 1994 Ears/Nose/Throat oral cavity/pharynx/larynx Overall: oral mucosa clear 04/27/2014 None Full Exam - General 1994 Neck inspection of neck Overall: normal size 04/27/2014 None Full Exam - General 1994 Neck inspection of neck Overall: normal appearance 04/27/2014 None Full Exam - General 1994 Respiratory auscultation Overall: breath sounds clear bilaterally 04/27/2014 None Full Exam - General 1994 Respiratory respiratory effort/rhythm Overall: no retractions 04/27/2014 None Full Exam - General 1994 Respiratory respiratory effort/rhythm Overall: normal rate 04/27/2014 None Full Exam - General 1994 Cardiovascular extremities Overall: no clubbing 04/27/2014 None Full Exam - General 1994 Cardiovascular auscultation of heart Rate: regular rate 04/27/2014 None Full Exam - General 1994 Cardiovascular auscultation of heart Rhythm: regular rhythm 04/27/2014 None Full Exam - General 1994 Chest/Breast breast/chest inspection Overall: normal chest shape 04/27/2014 None Full Exam - General 1994 Abdomen abdominal exam Overall: no tenderness 04/27/2014 None Full Exam - General 1994 Abdomen abdominal exam Overall: normal bowel sounds 04/27/2014 None Full Exam - General 1994 Lymphatic neck nodes Overall: anterior cervical chain benign 04/27/2014 None Full Exam - General 1994 Lymphatic neck nodes Overall: posterior cervical chain benign 04/27/2014 None Full Exam - General 1994 Musculoskeletal head and neck Overall: head atraumatic 04/27/2014 None Full Exam - General 1994 Neurologic deep tendon reflexes Overall: deep tendon reflexes intact 04/27/2014 None Full Exam - General 1994 Neurologic cranial nerves Overall: crainial nerves 2 - 12 grossly intact 04/27/2014 None Full Exam - General 1994 Psychiatric orientation/consciousness Overall: oriented to person, place and time 04/27/2014 None Full Exam - General 1994 Cardiovascular auscultation of heart Heart sounds: pericardial rub 04/27/2014 None Full Exam - General 1994 Constitutional general appearance Development: well developed 01/28/2014 None Full Exam - General 1994 Constitutional general appearance Development: appears stated age 0401/28/2014 None Full Exam - General 1994 Eyes pupils and irises Overall: pupils equal, round, reactive to light and accomodation 01/28/2014 None Full Exam - General 1994 Ears/Nose/Throat otoscopic exam Overall: external auditory canals clear 01/28/2014 None Full Exam - General 1994 Ears/Nose/Throat otoscopic exam Overall: tympanic membranes clear 01/28/2014 None Full Exam - General 1994 Ears/Nose/Throat oral cavity/pharynx/larynx Overall: oral mucosa clear 01/28/2014 None Full Exam - General 1994 Respiratory auscultation Overall: breath sounds clear bilaterally 01/28/2014 None Full Exam - General 1994 Respiratory respiratory effort/rhythm Overall: no retractions 01/28/2014 None Full Exam - General 1994 Respiratory respiratory effort/rhythm Overall: normal rate 01/28/2014 None Full Exam - General 1994 Cardiovascular extremities Overall: no clubbing 01/28/2014 None Full Exam - General 1994 Cardiovascular auscultation of heart Rate: regular rate 01/28/2014 None Full Exam - General 1994 Cardiovascular auscultation of heart Rhythm: regular rhythm 01/28/2014 None Full Exam - General 1994 Cardiovascular auscultation of heart Heart sounds: pericardial rub 01/28/2014 None Full Exam - General 1994 Abdomen abdominal exam Overall: no tenderness 01/28/2014 None Full Exam - General 1994 Abdomen abdominal exam Overall: normal bowel sounds 01/28/2014 None Full Exam - General 1994 Musculoskeletal spine, ribs and pelvis Overall: spine benign 01/28/2014 None Full Exam - General 1994 Musculoskeletal spine, ribs and pelvis Overall: sacroiliac joint benign 01/28/2014 None Full Exam - General 1994 Musculoskeletal spine, ribs and pelvis Overall: good posture 01/28/2014 None Full Exam - General 1994 Musculoskeletal head and neck Overall: head atraumatic 01/28/2014 None Full Exam - General 1994 Musculoskeletal head and neck Overall: cervical spine benign 01/28/2014 None Full Exam - General 1994 Neurologic cranial nerves Overall: crainial nerves 2 - 12 grossly intact 01/28/2014 None Full Exam - General 1994 Psychiatric orientation/consciousness Overall: oriented to person, place and time 01/28/2014 None Full Exam - General 1994 Constitutional general appearance Development: well developed 01/05/2014 None Full Exam - General 1994 Constitutional general appearance Development: appears stated age 0301/05/2014 None Full Exam - General 1994 Eyes pupils and irises Overall: pupils equal, round, reactive to light and accomodation 01/05/2014 None Full Exam - General 1994 Ears/Nose/Throat otoscopic exam Overall: external auditory canals clear 01/05/2014 None Full Exam - General 1994 Ears/Nose/Throat otoscopic exam Overall: tympanic membranes clear 01/05/2014 None Full Exam - General 1994 Ears/Nose/Throat oral cavity/pharynx/larynx Overall: oral mucosa clear 01/05/2014 None Full Exam - General 1994 Respiratory auscultation Overall: breath sounds clear bilaterally 01/05/2014 None Full Exam - General 1994 Respiratory respiratory effort/rhythm Overall: no retractions 01/05/2014 None Full Exam - General 1994 Respiratory respiratory effort/rhythm Overall: normal rate 01/05/2014 None Full Exam - General 1994 Cardiovascular extremities Overall: no clubbing 01/05/2014 None Full Exam - General 1994 Cardiovascular auscultation of heart Rate: regular rate 01/05/2014 None Full Exam - General 1994 Cardiovascular auscultation of heart Rhythm: regular rhythm 01/05/2014 None Full Exam - General 1994 Cardiovascular auscultation of heart Heart sounds: pericardial rub 01/05/2014 None Full Exam - General 1994 Musculoskeletal spine, ribs and pelvis Overall: spine benign 01/05/2014 None Full Exam - General 1994 Musculoskeletal spine, ribs and pelvis Overall: sacroiliac joint benign 01/05/2014 None Full Exam - General 1994 Musculoskeletal spine, ribs and pelvis Overall: good posture 01/05/2014 None Full Exam - General 1994 Musculoskeletal head and neck Overall: head atraumatic 01/05/2014 None Full Exam - General 1994 Musculoskeletal head and neck Overall: cervical spine benign 01/05/2014 None Full Exam - General 1994 Neurologic cranial nerves Overall: crainial nerves 2 - 12 grossly intact 01/05/2014 None Full Exam - General 1994 Psychiatric orientation/consciousness Overall: oriented to person, place and time 01/05/2014 None Full Exam - General 1994 Constitutional general appearance Development: well developed 11/17/2013 None Full Exam - General 1994 Constitutional general appearance Development: appears stated age 0211/17/2013 None Full Exam - General 1994 Eyes pupils and irises Overall: pupils equal, round, reactive to light and accomodation 11/17/2013 None Full Exam - General 1994 Ears/Nose/Throat otoscopic exam Overall: external auditory canals clear 11/17/2013 None Full Exam - General 1995 Ears/Nose/Throat otoscopic exam Overall: tympanic membranes clear 11/17/2013 None Full Exam - General 1995 Ears/Nose/Throat oral cavity/pharynx/larynx Overall: oral mucosa clear 11/17/2013 None Full Exam - General 1994 Respiratory auscultation Overall: breath sounds clear bilaterally 11/17/2013 None Full Exam - General 1994 Respiratory respiratory effort/rhythm Overall: no retractions 11/17/2013 None Full Exam - General 1994 Respiratory respiratory effort/rhythm Overall: normal rate 11/17/2013 None Full Exam - General 1994 Cardiovascular extremities Overall: no clubbing 11/17/2013 None Full Exam - General 1994 Cardiovascular auscultation of heart Rate: regular rate 11/17/2013 None Full Exam - General 1994 Cardiovascular auscultation of heart Rhythm: regular rhythm 11/17/2013 None Full Exam - General 1994 Cardiovascular auscultation of heart Heart sounds: pericardial rub 11/17/2013 None Full Exam - General 1994 Musculoskeletal spine, ribs and pelvis Overall: spine benign 11/17/2013 None Full Exam - General 1994 Musculoskeletal spine, ribs and pelvis Overall: sacroiliac joint benign 11/17/2013 None Full Exam - General 1994 Musculoskeletal spine, ribs and pelvis Overall: good posture 11/17/2013 None Full Exam - General 1994 Musculoskeletal head and neck Overall: head atraumatic 11/17/2013 None Full Exam - General 1994 Musculoskeletal head and neck Overall: cervical spine benign 11/17/2013 None Full Exam - General 1994 Neurologic cranial nerves Overall: crainial nerves 2 - 12 grossly intact 11/17/2013 None Full Exam - General 1994 Psychiatric orientation/consciousness Overall: oriented to person, place and time 11/17/2013 None Full Exam - General 1994 Constitutional general appearance Development: well developed 08/27/2013 None Full Exam - General 1994 Constitutional general appearance Development: appears stated age 1108/27/2013 None Full Exam - General 1994 Eyes pupils and irises Overall: pupils equal, round, reactive to light and accomodation 08/27/2013 None Full Exam - General 1994 Ears/Nose/Throat otoscopic exam Overall: external auditory canals clear 08/27/2013 None Full Exam - General 1994 Ears/Nose/Throat otoscopic exam Overall: tympanic membranes clear 08/27/2013 None Full Exam - General 1994 Ears/Nose/Throat oral cavity/pharynx/larynx Overall: oral mucosa clear 08/27/2013 None Full Exam - General 1995 Respiratory auscultation Overall: breath sounds clear bilaterally 08/27/2013 None Full Exam - General 1995 Respiratory respiratory effort/rhythm Overall: no retractions 08/27/2013 None Full Exam - General 1995 Respiratory respiratory effort/rhythm Overall: normal rate 08/27/2013 None Full Exam - General 1995 Cardiovascular extremities Overall: no clubbing 08/27/2013 None Full Exam - General 1995 Cardiovascular auscultation of heart Rate: regular rate 08/27/2013 None Full Exam - General 1995 Cardiovascular auscultation of heart Rhythm: regular rhythm 08/27/2013 None Full Exam - General 1995 Cardiovascular auscultation of heart Heart sounds: pericardial rub 08/27/2013 None Full Exam - General 1995 Musculoskeletal spine, ribs and pelvis Overall: spine benign 08/27/2013 None Full Exam - General 1994 Musculoskeletal spine, ribs and pelvis Overall: sacroiliac joint benign 08/27/2013 None Full Exam - General 1994 Musculoskeletal spine, ribs and pelvis Overall: good posture 08/27/2013 None Full Exam - General 1994 Musculoskeletal head and neck Overall: head atraumatic 08/27/2013 None Full Exam - General 1994 Musculoskeletal head and neck Overall: cervical spine benign 08/27/2013 None Full Exam - General 1994 Neurologic cranial nerves Overall: crainial nerves 2 - 12 grossly intact 08/27/2013 None Full Exam - General 1994 Psychiatric orientation/consciousness Overall: oriented to person, place and time 08/27/2013 None Full Exam - General 1994 Musculoskeletal head and neck Overall: cervical spine benign 08/21/2013 None Full Exam - General 1994 Musculoskeletal head and neck Overall: head atraumatic 08/21/2013 None Full Exam - General 1994 Respiratory respiratory effort/rhythm Overall: no retractions 08/21/2013 None Full Exam - General 1994 Respiratory respiratory effort/rhythm Overall: normal rate 08/21/2013 None Full Exam - General 1994 Cardiovascular extremities Overall: no clubbing 08/21/2013 None Full Exam - General 1994 Cardiovascular auscultation of heart Rate: regular rate 08/21/2013 None Full Exam - General 1994 Cardiovascular auscultation of heart Rhythm: regular rhythm 08/21/2013 None Full Exam - General 1994 Cardiovascular auscultation of heart Heart sounds: pericardial rub 08/21/2013 None Full Exam - General 1994 Abdomen abdominal exam Overall: no tenderness 08/21/2013 None Full Exam - General 1994 Abdomen abdominal exam Overall: normal bowel sounds 08/21/2013 None Full Exam - General 1994 Musculoskeletal spine, ribs and pelvis Overall: spine benign 08/21/2013 None Full Exam - General 1994 Musculoskeletal spine, ribs and pelvis Overall: sacroiliac joint benign 08/21/2013 None Full Exam - General 1994 Musculoskeletal spine, ribs and pelvis Overall: good posture 08/21/2013 None Full Exam - General 1994 Neurologic cranial nerves Overall: crainial nerves 2 - 12 grossly intact 08/21/2013 None Full Exam - General 1994 Psychiatric orientation/consciousness Overall: oriented to person, place and time 08/21/2013 None Full Exam - General 1994 Constitutional general appearance Development: well developed 08/21/2013 None Full Exam - General 1994 Constitutional general appearance Development: appears stated age 1108/21/2013 None Full Exam - General 1994 Eyes pupils and irises Overall: pupils equal, round, reactive to light and accomodation 08/21/2013 None Full Exam - General 1994 Ears/Nose/Throat otoscopic exam Overall: external auditory canals clear 08/21/2013 None Full Exam - General 1994 Ears/Nose/Throat otoscopic exam Overall: tympanic membranes clear 08/21/2013 None Full Exam - General 1994 Ears/Nose/Throat oral cavity/pharynx/larynx Overall: oral mucosa clear 08/21/2013 None Full Exam - General 1994 Respiratory auscultation Overall: breath sounds clear bilaterally 08/21/2013 None Full Exam - General 1994 Constitutional general appearance Development: well developed 08/18/2013 None Full Exam - General 1994 Constitutional general appearance Development: appears stated age 1108/18/2013 None Full Exam - General 1994 Eyes pupils and irises Overall: pupils equal, round, reactive to light and accomodation 08/18/2013 None Full Exam - General 1994 Ears/Nose/Throat otoscopic exam Overall: external auditory canals clear 08/18/2013 None Full Exam - General 1994 Ears/Nose/Throat otoscopic exam Overall: tympanic membranes clear 08/18/2013 None Full Exam - General 1994 Ears/Nose/Throat oral cavity/pharynx/larynx Overall: oral mucosa clear 08/18/2013 None Full Exam - General 1994 Respiratory auscultation Overall: breath sounds clear bilaterally 08/18/2013 None Full Exam - General 1994 Respiratory respiratory effort/rhythm Overall: no retractions 08/18/2013 None Full Exam - General 1994 Respiratory respiratory effort/rhythm Overall: normal rate 08/18/2013 None Full Exam - General 1994 Cardiovascular extremities Overall: no clubbing 08/18/2013 None Full Exam - General 1994 Cardiovascular auscultation of heart Rate: regular rate 08/18/2013 None Full Exam - General 1994 Cardiovascular auscultation of heart Rhythm: regular rhythm 08/18/2013 None Full Exam - General 1994 Cardiovascular auscultation of heart Heart sounds: pericardial rub 08/18/2013 None Full Exam - General 1994 Abdomen abdominal exam Overall: no tenderness 08/18/2013 None Full Exam - General 1994 Abdomen abdominal exam Overall: normal bowel sounds 08/18/2013 None Full Exam - General 1994 Musculoskeletal spine, ribs and pelvis Overall: spine benign 08/18/2013 None Full Exam - General 1994 Musculoskeletal spine, ribs and pelvis Overall: sacroiliac joint benign 08/18/2013 None Full Exam - General 1994 Musculoskeletal spine, ribs and pelvis Overall: good posture 08/18/2013 None Full Exam - General 1994 Neurologic cranial nerves Overall: crainial nerves 2 - 12 grossly intact 08/18/2013 None Full Exam - General 1994 Psychiatric orientation/consciousness Overall: oriented to person, place and time 08/18/2013 None Full Exam - General 1994 Constitutional general appearance Development: well developed 04/29/2013 None Full Exam - General 1994 Constitutional general appearance Development: appears stated age 0704/29/2013 None Full Exam - General 1994 Eyes pupils and irises Overall: pupils equal, round, reactive to light and accomodation 04/29/2013 None Full Exam - General 1994 Ears/Nose/Throat otoscopic exam Overall: external auditory canals clear 04/29/2013 None Full Exam - General 1994 Ears/Nose/Throat otoscopic exam Overall: tympanic membranes clear 04/29/2013 None Full Exam - General 1994 Ears/Nose/Throat oral cavity/pharynx/larynx Overall: oral mucosa clear 04/29/2013 None Full Exam - General 1994 Respiratory auscultation Overall: breath sounds clear bilaterally 04/29/2013 None Full Exam - General 1994 Respiratory respiratory effort/rhythm Overall: no retractions 04/29/2013 None Full Exam - General 1994 Respiratory respiratory effort/rhythm Overall: normal rate 04/29/2013 None Full Exam - General 1994 Cardiovascular extremities Overall: no clubbing 04/29/2013 None Full Exam - General 1995 Cardiovascular auscultation of heart Rate: regular rate 04/29/2013 None Full Exam - General 1994 Cardiovascular auscultation of heart Rhythm: regular rhythm 04/29/2013 None Full Exam - General 1994 Cardiovascular auscultation of heart Heart sounds: pericardial rub 04/29/2013 None Full Exam - General 1994 Abdomen abdominal exam Overall: no tenderness 04/29/2013 None Full Exam - General 1994 Abdomen abdominal exam Overall: normal bowel sounds 04/29/2013 None Full Exam - General 1995 Musculoskeletal spine, ribs and pelvis Overall: spine benign 04/29/2013 None Full Exam - General 1994 Musculoskeletal spine, ribs and pelvis Overall: sacroiliac joint benign 04/29/2013 None Full Exam - General 1994 Musculoskeletal spine, ribs and pelvis Overall: good posture 04/29/2013 None Full Exam - General 1994 Neurologic cranial nerves Overall: crainial nerves 2 - 12 grossly intact 04/29/2013 None Full Exam - General 1994 Psychiatric orientation/consciousness Overall: oriented to person, place and time 04/29/2013 None Full Exam - General 1994 Constitutional general appearance Development: well developed 03/24/2013 None Full Exam - General 1994 Constitutional general appearance Development: appears stated age 0603/24/2013 None Full Exam - General 1994 Eyes pupils and irises Overall: pupils equal, round, reactive to light and accomodation 03/24/2013 None Full Exam - General 1994 Ears/Nose/Throat otoscopic exam Overall: external auditory canals clear 03/24/2013 None Full Exam - General 1994 Ears/Nose/Throat otoscopic exam Overall: tympanic membranes clear 03/24/2013 None Full Exam - General 1994 Ears/Nose/Throat oral cavity/pharynx/larynx Overall: oral mucosa clear 03/24/2013 None Full Exam - General 1994 Respiratory auscultation Overall: breath sounds clear bilaterally 03/24/2013 None Full Exam - General 1994 Respiratory respiratory effort/rhythm Overall: no retractions 03/24/2013 None Full Exam - General 1994 Respiratory respiratory effort/rhythm Overall: normal rate 03/24/2013 None Full Exam - General 1994 Cardiovascular extremities Overall: no clubbing 03/24/2013 None Full Exam - General 1994 Cardiovascular auscultation of heart Rate: regular rate 03/24/2013 None Full Exam - General 1994 Cardiovascular auscultation of heart Rhythm: regular rhythm 03/24/2013 None Full Exam - General 1995 Cardiovascular auscultation of heart Heart sounds: pericardial rub 03/24/2013 None Full Exam - General 1994 Abdomen abdominal exam Overall: no tenderness 03/24/2013 None Full Exam - General 1994 Abdomen abdominal exam Overall: normal bowel sounds 03/24/2013 None Full Exam - General 1995 Musculoskeletal spine, ribs and pelvis Overall: spine benign 03/24/2013 None Full Exam - General 1994 Musculoskeletal spine, ribs and pelvis Overall: sacroiliac joint benign 03/24/2013 None Full Exam - General 1994 Musculoskeletal spine, ribs and pelvis Overall: good posture 03/24/2013 None Full Exam - General 1994 Integument inspection of skin Dermatitis: erythema 03/24/2013 irritated skin tag on right neck , erythematous and hardened and drying. Full Exam - General 1994 Neurologic cranial nerves Overall: crainial nerves 2 - 12 grossly intact 03/24/2013 None Full Exam - General 1994 Psychiatric orientation/consciousness Overall: oriented to person, place and time 03/24/2013 None Full Exam - General 1994 Constitutional general appearance Development: well developed 02/06/2013 None Full Exam - General 1994 Constitutional general appearance Development: appears stated age 0402/06/2013 None Full Exam - General 1994 Eyes pupils and irises Overall: pupils equal, round, reactive to light and accomodation 02/06/2013 None Full Exam - General 1994 Ears/Nose/Throat otoscopic exam Overall: external auditory canals clear 02/06/2013 None Full Exam - General 1994 Ears/Nose/Throat otoscopic exam Overall: tympanic membranes clear 02/06/2013 None Full Exam - General 1994 Ears/Nose/Throat oral cavity/pharynx/larynx Overall: oral mucosa clear 02/06/2013 None Full Exam - General 1994 Respiratory auscultation Overall: breath sounds clear bilaterally 02/06/2013 None Full Exam - General 1994 Respiratory respiratory effort/rhythm Overall: no retractions 02/06/2013 None Full Exam - General 1994 Respiratory respiratory effort/rhythm Overall: normal rate 02/06/2013 None Full Exam - General 1994 Cardiovascular extremities Overall: no clubbing 02/06/2013 None Full Exam - General 1994 Cardiovascular auscultation of heart Rate: regular rate 02/06/2013 None Full Exam - General 1994 Cardiovascular auscultation of heart Rhythm: regular rhythm 02/06/2013 None Full Exam - General 1994 Cardiovascular auscultation of heart Heart sounds: pericardial rub 02/06/2013 None Full Exam - General 1995 Abdomen abdominal exam Overall: no tenderness 02/06/2013 None Full Exam - General 1994 Abdomen abdominal exam Overall: normal bowel sounds 02/06/2013 None Full Exam - General 1994 Musculoskeletal spine, ribs and pelvis Overall: spine benign 02/06/2013 None Full Exam - General 1994 Musculoskeletal spine, ribs and pelvis Overall: sacroiliac joint benign 02/06/2013 None Full Exam - General 1994 Musculoskeletal spine, ribs and pelvis Overall: good posture 02/06/2013 None Full Exam - General 1994 Neurologic cranial nerves Overall: crainial nerves 2 - 12 grossly intact 02/06/2013 None Full Exam - General 1994 Psychiatric orientation/consciousness Overall: oriented to person, place and time 02/06/2013 None Full Exam - General 1994 Integument inspection of skin Dermatitis: erythema 02/06/2013 irritated skin tag on right neck , erythematous and hardened and drying. Full Exam - General 1994 Respiratory respiratory effort/rhythm Overall: normal rate 11/05/2012 None Full Exam - General 1994 Cardiovascular extremities Overall: no clubbing 11/05/2012 None Full Exam - General 1994 Cardiovascular auscultation of heart Rate: regular rate 11/05/2012 None Full Exam - General 1994 Cardiovascular auscultation of heart Rhythm: regular rhythm 11/05/2012 None Full Exam - General 1994 Cardiovascular auscultation of heart Heart sounds: pericardial rub 11/05/2012 None Full Exam - General 1994 Abdomen abdominal exam Overall: no tenderness 11/05/2012 None Full Exam - General 1994 Abdomen abdominal exam Overall: normal bowel sounds 11/05/2012 None Full Exam - General 1994 Musculoskeletal spine, ribs and pelvis Overall: spine benign 11/05/2012 None Full Exam - General 1994 Musculoskeletal spine, ribs and pelvis Overall: sacroiliac joint benign 11/05/2012 None Full Exam - General 1994 Musculoskeletal spine, ribs and pelvis Overall: good posture 11/05/2012 None Full Exam - General 1994 Neurologic cranial nerves Overall: crainial nerves 2 - 12 grossly intact 11/05/2012 None Full Exam - General 1994 Psychiatric orientation/consciousness Overall: oriented to person, place and time 11/05/2012 None Full Exam - General 1994 Constitutional general appearance Development: well developed 11/05/2012 None Full Exam - General 1994 Constitutional general appearance Development: appears stated age 0111/05/2012 None Full Exam - General 1994 Eyes pupils and irises Overall: pupils equal, round, reactive to light and accomodation 11/05/2012 None Full Exam - General 1994 Ears/Nose/Throat otoscopic exam Overall: external auditory canals clear 11/05/2012 None Full Exam - General 1995 Ears/Nose/Throat otoscopic exam Overall: tympanic membranes clear 11/05/2012 None Full Exam - General 1995 Ears/Nose/Throat oral cavity/pharynx/larynx Overall: oral mucosa clear 11/05/2012 None Full Exam - General 1994 Respiratory auscultation Overall: breath sounds clear bilaterally 11/05/2012 None Full Exam - General 1994 Respiratory respiratory effort/rhythm Overall: no retractions 11/05/2012 None Full Exam - General 1994 Constitutional general appearance Development: well developed 10/31/2012 None Full Exam - General 1994 Constitutional general appearance Development: appears stated age 0110/31/2012 None Full Exam - General 1994 Eyes pupils and irises Overall: pupils equal, round, reactive to light and accomodation 10/31/2012 None Full Exam - General 1994 Ears/Nose/Throat otoscopic exam Overall: external auditory canals clear 10/31/2012 None Full Exam - General 1994 Ears/Nose/Throat otoscopic exam Overall: tympanic membranes clear 10/31/2012 None Full Exam - General 1994 Ears/Nose/Throat oral cavity/pharynx/larynx Overall: oral mucosa clear 10/31/2012 None Full Exam - General 1994 Respiratory auscultation Overall: breath sounds clear bilaterally 10/31/2012 None Full Exam - General 1994 Respiratory respiratory effort/rhythm Overall: no retractions 10/31/2012 None Full Exam - General 1994 Respiratory respiratory effort/rhythm Overall: normal rate 10/31/2012 None Full Exam - General 1994 Cardiovascular extremities Overall: no clubbing 10/31/2012 None Full Exam - General 1994 Cardiovascular auscultation of heart Rate: regular rate 10/31/2012 None Full Exam - General 1994 Cardiovascular auscultation of heart Rhythm: regular rhythm 10/31/2012 None Full Exam - General 1994 Cardiovascular auscultation of heart Heart sounds: pericardial rub 10/31/2012 None Full Exam - General 1994 Abdomen abdominal exam Overall: no tenderness 10/31/2012 None Full Exam - General 1994 Abdomen abdominal exam Overall: normal bowel sounds 10/31/2012 None Full Exam - General 1994 Musculoskeletal spine, ribs and pelvis Overall: spine benign 10/31/2012 None Full Exam - General 1994 Musculoskeletal spine, ribs and pelvis Overall: sacroiliac joint benign 10/31/2012 None Full Exam - General 1994 Musculoskeletal spine, ribs and pelvis Overall: good posture 10/31/2012 None Full Exam - General 1994 Neurologic cranial nerves Overall: crainial nerves 2 - 12 grossly intact 10/31/2012 None Full Exam - General 1994 Psychiatric orientation/consciousness Overall: oriented to person, place and time 10/31/2012 None Full Exam - General 1994 Constitutional general appearance Development: well developed 09/03/2012 None Full Exam - General 1994 Constitutional general appearance Development: appears stated age 1109/03/2012 None Full Exam - General 1994 Eyes pupils and irises Overall: pupils equal, round, reactive to light and accomodation 09/03/2012 None Full Exam - General 1994 Ears/Nose/Throat otoscopic exam Overall: external auditory canals clear 09/03/2012 None Full Exam - General 1994 Ears/Nose/Throat otoscopic exam Overall: tympanic membranes clear 09/03/2012 None Full Exam - General 1994 Ears/Nose/Throat oral cavity/pharynx/larynx Overall: oral mucosa clear 09/03/2012 None Full Exam - General 1994 Respiratory auscultation Overall: breath sounds clear bilaterally 09/03/2012 None Full Exam - General 1994 Respiratory respiratory effort/rhythm Overall: no retractions 09/03/2012 None Full Exam - General 1994 Respiratory respiratory effort/rhythm Overall: normal rate 09/03/2012 None Full Exam - General 1994 Cardiovascular extremities Overall: no clubbing 09/03/2012 None Full Exam - General 1994 Cardiovascular auscultation of heart Rate: regular rate 09/03/2012 None Full Exam - General 1994 Cardiovascular auscultation of heart Rhythm: regular rhythm 09/03/2012 None Full Exam - General 1994 Cardiovascular auscultation of heart Heart sounds: pericardial rub 09/03/2012 None Full Exam - General 1994 Abdomen abdominal exam Overall: no tenderness 09/03/2012 None Full Exam - General 1994 Abdomen abdominal exam Overall: normal bowel sounds 09/03/2012 None Full Exam - General 1994 Musculoskeletal spine, ribs and pelvis Overall: spine benign 09/03/2012 None Full Exam - General 1994 Musculoskeletal spine, ribs and pelvis Overall: sacroiliac joint benign 09/03/2012 None Full Exam - General 1994 Musculoskeletal spine, ribs and pelvis Overall: good posture 09/03/2012 None Full Exam - General 1994 Neurologic cranial nerves Overall: crainial nerves 2 - 12 grossly intact 09/03/2012 None Full Exam - General 1994 Psychiatric orientation/consciousness Overall: oriented to person, place and time 09/03/2012 None Full Exam - General 1994 Constitutional general appearance Development: well developed 08/20/2012 None Full Exam - General 1994 Constitutional general appearance Development: appears stated age 1108/20/2012 None Full Exam - General 1994 Eyes pupils and irises Overall: pupils equal, round, reactive to light and accomodation 08/20/2012 None Full Exam - General 1994 Cardiovascular auscultation of heart Heart sounds: pericardial rub 08/20/2012 None Full Exam - General 1994 Cardiovascular auscultation of heart Rhythm: regular rhythm 08/20/2012 None Full Exam - General 1994 Cardiovascular auscultation of heart Rate: regular rate 08/20/2012 None Full Exam - General 1994 Respiratory auscultation Overall: breath sounds clear bilaterally 08/20/2012 None Full Exam - General 1994 Psychiatric orientation/consciousness Overall: oriented to person, place and time 08/20/2012 None Full Exam - General 1994 Respiratory auscultation Overall: breath sounds clear bilaterally 07/16/2012 None Full Exam - General 1994 Respiratory respiratory effort/rhythm Overall: no retractions 07/16/2012 None Full Exam - General 1994 Respiratory respiratory effort/rhythm Overall: normal rate 07/16/2012 None Full Exam - General 1994 Cardiovascular extremities Overall: no clubbing 07/16/2012 None Full Exam - General 1994 Cardiovascular auscultation of heart Rate: regular rate 07/16/2012 None Full Exam - General 1994 Cardiovascular auscultation of heart Rhythm: regular rhythm 07/16/2012 None Full Exam - General 1994 Cardiovascular auscultation of heart Heart sounds: pericardial rub 07/16/2012 None Full Exam - General 1994 Abdomen abdominal exam Overall: normal bowel sounds 07/16/2012 None Full Exam - General 1994 Musculoskeletal spine, ribs and pelvis Overall: spine benign 07/16/2012 None Full Exam - General 1994 Musculoskeletal spine, ribs and pelvis Overall: sacroiliac joint benign 07/16/2012 None Full Exam - General 1994 Musculoskeletal spine, ribs and pelvis Overall: good posture 07/16/2012 None Full Exam - General 1994 Neurologic cranial nerves Overall: crainial nerves 2 - 12 grossly intact 07/16/2012 None Full Exam - General 1994 Psychiatric orientation/consciousness Overall: oriented to person, place and time 07/16/2012 None Full Exam - General 1994 Constitutional general appearance Development: well developed 07/16/2012 None Full Exam - General 1994 Constitutional general appearance Development: appears stated age 1007/16/2012 None Full Exam - General 1994 Eyes pupils and irises Overall: pupils equal, round, reactive to light and accomodation 07/16/2012 None Full Exam - General 1994 Ears/Nose/Throat otoscopic exam Overall: external auditory canals clear 07/16/2012 None Full Exam - General 1994 Ears/Nose/Throat otoscopic exam Overall: tympanic membranes clear 07/16/2012 None Full Exam - General 1994 Ears/Nose/Throat oral cavity/pharynx/larynx Overall: oral mucosa clear 07/16/2012 None Full Exam - General 1994 Abdomen abdominal exam Upper quadrant: tender to palpation 07/16/2012 None Full Exam - General 1994 Constitutional general appearance Development: well developed 07/01/2012 None Full Exam - General 1994 Constitutional general appearance Development: appears stated age 0907/01/2012 None Full Exam - General 1994 Eyes pupils and irises Overall: pupils equal, round, reactive to light and accomodation 07/01/2012 None Full Exam - General 1994 Ears/Nose/Throat otoscopic exam Overall: external auditory canals clear 07/01/2012 None Full Exam - General 1994 Ears/Nose/Throat otoscopic exam Overall: tympanic membranes clear 07/01/2012 None Full Exam - General 1994 Ears/Nose/Throat oral cavity/pharynx/larynx Overall: oral mucosa clear 07/01/2012 None Full Exam - General 1994 Respiratory auscultation Overall: breath sounds clear bilaterally 07/01/2012 None Full Exam - General 1994 Respiratory respiratory effort/rhythm Overall: no retractions 07/01/2012 None Full Exam - General 1994 Respiratory respiratory effort/rhythm Overall: normal rate 07/01/2012 None Full Exam - General 1994 Cardiovascular extremities Overall: no clubbing 07/01/2012 None Full Exam - General 1994 Cardiovascular auscultation of heart Rate: regular rate 07/01/2012 None Full Exam - General 1994 Cardiovascular auscultation of heart Rhythm: regular rhythm 07/01/2012 None Full Exam - General 1994 Cardiovascular auscultation of heart Heart sounds: pericardial rub 07/01/2012 None Full Exam - General 1994 Neurologic cranial nerves Overall: crainial nerves 2 - 12 grossly intact 07/01/2012 None Full Exam - General 1994 Psychiatric orientation/consciousness Overall: oriented to person, place and time 07/01/2012 None Full Exam - General 1994 Abdomen abdominal exam Overall: no tenderness 07/01/2012 None Full Exam - General 1994 Abdomen abdominal exam Overall: normal bowel sounds 07/01/2012 None Full Exam - General 1994 Musculoskeletal spine, ribs and pelvis Overall: good posture 07/01/2012 None Full Exam - General 1994 Musculoskeletal spine, ribs and pelvis Overall: sacroiliac joint benign 07/01/2012 None Full Exam - General 1994 Musculoskeletal spine, ribs and pelvis Overall: spine benign 07/01/2012 None Full Exam - General 1994 Cardiovascular auscultation of heart Rhythm: regular rhythm 05/08/2012 None Full Exam - General 1994 Cardiovascular auscultation of heart Heart sounds: pericardial rub 05/08/2012 None Full Exam - General 1994 Neurologic cranial nerves Overall: crainial nerves 2 - 12 grossly intact 05/08/2012 None Full Exam - General 1994 Psychiatric orientation/consciousness Overall: oriented to person, place and time 05/08/2012 None Full Exam - General 1994 Constitutional general appearance Development: well developed 05/08/2012 None Full Exam - General 1994 Constitutional general appearance Development: appears stated age 0705/08/2012 None Full Exam - General 1994 Eyes pupils and irises Overall: pupils equal, round, reactive to light and accomodation 05/08/2012 None Full Exam - General 1994 Ears/Nose/Throat oral cavity/pharynx/larynx Overall: oral mucosa clear 05/08/2012 None Full Exam - General 1994 Respiratory auscultation Overall: breath sounds clear bilaterally 05/08/2012 None Full Exam - General 1994 Respiratory respiratory effort/rhythm Overall: no retractions 05/08/2012 None Full Exam - General 1994 Respiratory respiratory effort/rhythm Overall: normal rate 05/08/2012 None Full Exam - General 1994 Cardiovascular extremities Overall: no clubbing 05/08/2012 None Full Exam - General 1994 Cardiovascular auscultation of heart Rate: regular rate 05/08/2012 None Full Exam - General 1994 Constitutional general appearance Development: well developed 04/19/2012 None Full Exam - General 1994 Constitutional general appearance Development: appears stated age 0704/19/2012 None Full Exam - General 1994 Eyes pupils and irises Overall: pupils equal, round, reactive to light and accomodation 04/19/2012 None Full Exam - General 1995 Ears/Nose/Throat otoscopic exam Overall: external auditory canals clear 04/19/2012 None Full Exam - General 1995 Ears/Nose/Throat otoscopic exam Overall: tympanic membranes clear 04/19/2012 None Full Exam - General 1995 Ears/Nose/Throat oral cavity/pharynx/larynx Overall: oral mucosa clear 04/19/2012 None Full Exam - General 1994 Respiratory auscultation Overall: breath sounds clear bilaterally 04/19/2012 None Full Exam - General 1994 Respiratory respiratory effort/rhythm Overall: no retractions 04/19/2012 None Full Exam - General 1994 Respiratory respiratory effort/rhythm Overall: normal rate 04/19/2012 None Full Exam - General 1994 Cardiovascular extremities Overall: no clubbing 04/19/2012 None Full Exam - General 1994 Cardiovascular auscultation of heart Rate: regular rate 04/19/2012 None Full Exam - General 1994 Cardiovascular auscultation of heart Rhythm: regular rhythm 04/19/2012 None Full Exam - General 1994 Cardiovascular auscultation of heart Heart sounds: pericardial rub 04/19/2012 None Full Exam - General 1994 Neurologic cranial nerves Overall: crainial nerves 2 - 12 grossly intact 04/19/2012 None Full Exam - General 1994 Psychiatric orientation/consciousness Overall: oriented to person, place and time 04/19/2012 None Full Exam - General 1994 Constitutional general appearance Development: well developed 04/15/2012 None Full Exam - General 1994 Constitutional general appearance Development: appears stated age 0704/15/2012 None Full Exam - General 1994 Eyes pupils and irises Overall: pupils equal, round, reactive to light and accomodation 04/15/2012 None Full Exam - General 1994 Ears/Nose/Throat otoscopic exam Overall: external auditory canals clear 04/15/2012 None Full Exam - General 1994 Ears/Nose/Throat otoscopic exam Overall: tympanic membranes clear 04/15/2012 None Full Exam - General 1994 Ears/Nose/Throat oral cavity/pharynx/larynx Overall: oral mucosa clear 04/15/2012 None Full Exam - General 1994 Neck inspection of neck Overall: normal size 04/15/2012 None Full Exam - General 1994 Neck inspection of neck Overall: normal appearance 04/15/2012 None Full Exam - General 1994 Respiratory auscultation Overall: breath sounds clear bilaterally 04/15/2012 None Full Exam - General 1994 Respiratory respiratory effort/rhythm Overall: no retractions 04/15/2012 None Full Exam - General 1995 Respiratory respiratory effort/rhythm Overall: normal rate 04/15/2012 None Full Exam - General 1994 Cardiovascular extremities Overall: no clubbing 04/15/2012 None Full Exam - General 1995 Cardiovascular auscultation of heart Rate: regular rate 04/15/2012 None Full Exam - General 1995 Cardiovascular auscultation of heart Rhythm: regular rhythm 04/15/2012 None Full Exam - General 1994 Cardiovascular auscultation of heart Heart sounds: pericardial rub 04/15/2012 None Full Exam - General 1995 Musculoskeletal head and neck Overall: head atraumatic 04/15/2012 None Full Exam - General 1994 Musculoskeletal head and neck Cervical Spine: tender 04/15/2012 None Full Exam - General 1994 Neurologic deep tendon reflexes Overall: deep tendon reflexes intact 04/15/2012 None Full Exam - General 1994 Neurologic cranial nerves Overall: crainial nerves 2 - 12 grossly intact 04/15/2012 None Full Exam - General 1994 Psychiatric orientation/consciousness Overall: oriented to person, place and time 04/15/2012 None Full Exam - General 1994 Constitutional general appearance Development: well developed 04/04/2012 None Full Exam - General 1994 Constitutional general appearance Development: appears stated age 0604/04/2012 None Full Exam - General 1994 Eyes pupils and irises Overall: pupils equal, round, reactive to light and accomodation 04/04/2012 None Full Exam - General 1994 Ears/Nose/Throat otoscopic exam Overall: external auditory canals clear 04/04/2012 None Full Exam - General 1994 Ears/Nose/Throat otoscopic exam Overall: tympanic membranes clear 04/04/2012 None Full Exam - General 1994 Ears/Nose/Throat oral cavity/pharynx/larynx Overall: oral mucosa clear 04/04/2012 None Full Exam - General 1994 Neck inspection of neck Overall: normal size 04/04/2012 None Full Exam - General 1994 Neck inspection of neck Overall: normal appearance 04/04/2012 None Full Exam - General 1994 Respiratory auscultation Overall: breath sounds clear bilaterally 04/04/2012 None Full Exam - General 1994 Respiratory respiratory effort/rhythm Overall: no retractions 04/04/2012 None Full Exam - General 1994 Respiratory respiratory effort/rhythm Overall: normal rate 04/04/2012 None Full Exam - General 1994 Cardiovascular extremities Overall: no clubbing 04/04/2012 None Full Exam - General 1994 Cardiovascular auscultation of heart Rate: regular rate 04/04/2012 None Full Exam - General 1994 Cardiovascular auscultation of heart Rhythm: regular rhythm 04/04/2012 None Full Exam - General 1994 Cardiovascular auscultation of heart Heart sounds: pericardial rub 04/04/2012 None Full Exam - General 1995 Musculoskeletal head and neck Overall: head atraumatic 04/04/2012 None Full Exam - General 1995 Musculoskeletal head and neck Cervical Spine: tender 04/04/2012 None Full Exam - General 1994 Neurologic deep tendon reflexes Overall: deep tendon reflexes intact 04/04/2012 None Full Exam - General 1994 Neurologic cranial nerves Overall: crainial nerves 2 - 12 grossly intact 04/04/2012 None Full Exam - General 1994 Psychiatric orientation/consciousness Overall: oriented to person, place and time 04/04/2012 None Full Exam - General 1994 Constitutional general appearance Development: well developed 04/01/2012 None Full Exam - General 1994 Constitutional general appearance Development: appears stated age 0604/01/2012 None Full Exam - General 1994 Eyes pupils and irises Overall: pupils equal, round, reactive to light and accomodation 04/01/2012 None Full Exam - General 1994 Ears/Nose/Throat otoscopic exam Overall: external auditory canals clear 04/01/2012 None Full Exam - General 1994 Ears/Nose/Throat otoscopic exam Overall: tympanic membranes clear 04/01/2012 None Full Exam - General 1994 Ears/Nose/Throat oral cavity/pharynx/larynx Overall: oral mucosa clear 04/01/2012 None Full Exam - General 1994 Neck inspection of neck Overall: normal size 04/01/2012 None Full Exam - General 1994 Neck inspection of neck Overall: normal appearance 04/01/2012 None Full Exam - General 1994 Respiratory auscultation Overall: breath sounds clear bilaterally 04/01/2012 None Full Exam - General 1994 Respiratory respiratory effort/rhythm Overall: no retractions 04/01/2012 None Full Exam - General 1994 Respiratory respiratory effort/rhythm Overall: normal rate 04/01/2012 None Full Exam - General 1994 Cardiovascular extremities Overall: no clubbing 04/01/2012 None Full Exam - General 1994 Cardiovascular auscultation of heart Rate: regular rate 04/01/2012 None Full Exam - General 1994 Cardiovascular auscultation of heart Rhythm: regular rhythm 04/01/2012 None Full Exam - General 1994 Cardiovascular auscultation of heart Heart sounds: pericardial rub 04/01/2012 None Full Exam - General 1995 Chest/Breast breast/chest inspection Overall: normal chest shape 04/01/2012 None Full Exam - General 1995 Abdomen abdominal exam Overall: no tenderness 04/01/2012 None Full Exam - General 1995 Abdomen abdominal exam Overall: normal bowel sounds 04/01/2012 None Full Exam - General 1995 Lymphatic neck nodes Overall: anterior cervical chain benign 04/01/2012 None Full Exam - General 1995 Lymphatic neck nodes Overall: posterior cervical chain benign 04/01/2012 None Full Exam - General 1995 Integument inspection of skin Location: right arm 04/01/2012 fine redness noted to right inner upper arm. Full Exam - General 1995 Neurologic deep tendon reflexes Overall: deep tendon reflexes intact 04/01/2012 None Full Exam - General 1995 Neurologic cranial nerves Overall: crainial nerves 2 - 12 grossly intact 04/01/2012 None Full Exam - General 1994 Psychiatric orientation/consciousness Overall: oriented to person, place and time 04/01/2012 None Full Exam - General 1994 Musculoskeletal head and neck Overall: head atraumatic 04/01/2012 None Full Exam - General 1994 Musculoskeletal head and neck Cervical Spine: tender 04/01/2012 None Full Exam - General 1994 Ears/Nose/Throat oral cavity/pharynx/larynx Overall: oral mucosa clear 03/20/2012 None Full Exam - General 1995 Neck inspection of neck Overall: normal size 03/20/2012 None Full Exam - General 1995 Neck inspection of neck Overall: normal appearance 03/20/2012 None Full Exam - General 1994 Respiratory auscultation Overall: breath sounds clear bilaterally 03/20/2012 None Full Exam - General 1994 Respiratory respiratory effort/rhythm Overall: no retractions 03/20/2012 None Full Exam - General 1994 Respiratory respiratory effort/rhythm Overall: normal rate 03/20/2012 None Full Exam - General 1994 Constitutional general appearance Development: well developed 03/20/2012 None Full Exam - General 1994 Cardiovascular auscultation of heart Rate: regular rate 03/20/2012 None Full Exam - General 1994 Cardiovascular auscultation of heart Rhythm: regular rhythm 03/20/2012 None Full Exam - General 1994 Cardiovascular auscultation of heart Heart sounds: pericardial rub 03/20/2012 None Full Exam - General 1994 Cardiovascular extremities Overall: no clubbing 03/20/2012 None Full Exam - General 1994 Chest/Breast breast/chest inspection Overall: normal chest shape 03/20/2012 None Full Exam - General 1994 Abdomen abdominal exam Overall: normal bowel sounds 03/20/2012 None Full Exam - General 1994 Abdomen abdominal exam Overall: no tenderness 03/20/2012 None Full Exam - General 1994 Lymphatic neck nodes Overall: anterior cervical chain benign 03/20/2012 None Full Exam - General 1994 Constitutional general appearance Development: appears stated age 0603/20/2012 None Full Exam - General 1994 Constitutional general appearance Evidence of Distress: tearful 03/20/2012 None Full Exam - General 1994 Eyes conjunctiva /eyelids Overall: conjunctiva clear 03/20/2012 None Full Exam - General 1994 Eyes pupils and irises Overall: pupils equal, round, reactive to light and accomodation 03/20/2012 None Full Exam - General 1994 Eyes conjunctiva /eyelids Eyelid: edema 03/20/2012 upper eyelids slightly swollen Full Exam - General 1994 Ears/Nose/Throat otoscopic exam Overall: external auditory canals clear 03/20/2012 None Full Exam - General 1994 Ears/Nose/Throat otoscopic exam Overall: tympanic membranes clear 03/20/2012 None Full Exam - General 1994 Lymphatic neck nodes Overall: posterior cervical chain benign 03/20/2012 None Full Exam - General 1994 Psychiatric orientation/consciousness Overall: oriented to person, place and time 03/20/2012 None Full Exam - General 1994 Neurologic deep tendon reflexes Overall: deep tendon reflexes intact 03/20/2012 None Full Exam - General 1994 Neurologic cranial nerves Overall: crainial nerves 2 - 12 grossly intact 03/20/2012 None Full Exam - General 1994 Integument inspection of skin Location: right arm 03/20/2012 fine redness noted to right inner upper arm. Procedures Procedure Codes Date TRIAMCINOLONE ACET INJ NOS CPT-4: J3301 12/06/2018 THER/PROPH/DIAG INJ SC/IM CPT-4: 22107 12/06/2018 URINALYSIS NONAUTO W/O SCOPE CPT-4: 17458 11/25/2018 PPPS, SUBSEQ VISIT CPT -4: G0439 09/02/2018 ADMIN INFLUENZA VIRUS VAC CPT-4: G0008 06/18/2018 ADMIN PNEUMOCOCCAL VACCINE SNOMED CT: 60469053 CPT-4: G0009 06/18/2018 PNEUMOCOCCAL VACC [address]: 47349555 CPT-4: 84692 06/18/2018 FLU VAC NO PRSV 4 DONTE 3 YRS+ Formatting Model/CDA Sections, Assigned to/Abigail Mancia CPT-4: 65041Jfmiyeu 06/18/2018 PPPS, SUBSEQ VISIT CPT -4: G0439 08/22/2017 THER/PROPH/DIAG INJ SC/IM CPT-4: 86638 08/15/2017 TRIAMCINOLONE ACET INJ NOS CPT-4: J3301 08/15/2017 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 3-[address]: 458973809 CPT-4: G0436 12/12/2016 URINALYSIS NONAUTO W/O SCOPE CPT-4: 83336 12/12/2016 ADMIN INFLUENZA VIRUS VAC CPT-4: G0008 07/19/2016 FLU VACC 4 DONTE 3 YRS PLUS IM Formatting Model/CDA Sections, Assigned to/Abigail Mancia SNOMED CT: 00360803 CPT-4: 98359Nglogpt 07/19/2016 TRIAMCINOLONE ACET INJ NOS CPT-4: J3301 06/21/2016 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 3-[address]: 956040800 CPT-4: G0436 02/02/2016 ADMIN INFLUENZA VIRUS VAC CPT-4: G0008 08/25/2015 FLU VACC PRSV FREE INC ANTIG Formatting Model/CDA Sections, Assigned to/Abigail Mancia CPT-4: 30541Ehbqmma 08/25/2015 BIOPSY SKIN LESION CPT -4: 68360 02/02/2015 TRIAMCINOLONE ACET INJ NOS CPT-4: J3301 09/15/2014 DRAIN/INJECT JOINT/BURSA CPT-4: 29787 09/15/2014 TRIAMCINOLONE ACET INJ NOS CPT-4: J3301 08/03/2014 ADMIN INFLUENZA VIRUS VAC CPT-4: G0008 06/29/2014 FLU VAC NO PRSV 4 DONTE 3 YRS+ Assigned to/Abigail Mancia CPT-4: 62974Mnavdwc 06/29/2014 TRIAMCINOLONE ACET INJ NOS CPT-4: J3301 04/27/2014 ROUTINE VENIPUNCTURE CPT-4: 55418 08/21/2013 URINALYSIS NONAUTO W/O SCOPE CPT-4: 62475 08/18/2013 PRESCRIP TRANSMIT VIA ERX SY CPT-4: G8553 08/18/2013 ADMIN PNEUMOCOCCAL VACCINE SNOMED CT: 92179707 CPT-4: G0009 07/31/2013 Pneumococcal Polysaccharide Vaccine, 23-Valent, Ad CPT-4: 32533 07/31/2013 ADMIN INFLUENZA VIRUS VAC CPT-4: G0008 07/23/2013 FLULAVAL VACC, 3 YRS & >, IM CPT-4: Q2036 07/23/2013 PRESCRIP TRANSMIT VIA ERX SY CPT-4: G8553 04/29/2013 URINALYSIS NONAUTO W/O SCOPE CPT-4: 20826 04/14/2013 URINALYSIS NONAUTO W/O SCOPE CPT-4: 06332 03/24/2013 REMOVAL OF SKIN TAGS <W/15 CPT-4: 82437 02/06/2013 TRIAMCINOLONE ACET INJ NOS CPT-4: J3301 11/05/2012 THER/PROPH/DIAG INJ SC/IM CPT-4: 84054 11/05/2012 PRESCRIP TRANSMIT VIA ERX SY CPT-4: G8553 11/05/2012 URINALYSIS NONAUTO W/O SCOPE CPT-4: 55885 10/31/2012 URINALYSIS NONAUTO W/O SCOPE CPT-4: 23548 09/25/2012 PRESCRIP TRANSMIT VIA ERX SY CPT-4: G8553 09/25/2012 URINALYSIS NONAUTO W/O SCOPE CPT-4: 89063 08/20/2012 PRESCRIP TRANSMIT VIA ERX SY CPT-4: G8553 08/20/2012 ADMIN INFLUENZA VIRUS VAC CPT-4: G0008 07/01/2012 FLULAVAL VACC, 3 YRS & >, IM CPT-4: Q2036 07/01/2012 URINALYSIS NONAUTO W/O SCOPE CPT-4: 35167 04/19/2012 KETOROLAC TROMETHAMINE INJ CPT-4: J1885 04/04/2012 PRESCRIP TRANSMIT VIA ERX SY CPT-4: G8553 04/04/2012 PRESCRIP TRANSMIT VIA ERX SY CPT-4: G8553 04/01/2012 Vital Signs Date Vital 01/13/2019 Blood Pressure 1: 154/74 Code : 8480-6 BMI: 24.0 Code : 25548-7 Heart Rate 1 : 63 bpm Height: 5'8" SpO2: 98% Weight: 158 lbs 12/16/2018 Blood Pressure 1: 160/84 Code : 8480-6 BMI: 24.2 Code : 87460-2 Heart Rate 1 : 61 bpm Height: 5'8" SpO2: 98% Weight: 159 lbs 12/06/2018 Blood Pressure 1: 118/64 Code : 8480-6 BMI: 24.3 Code : 50983-8 Heart Rate 1 : 65 bpm Height: 5'8" SpO2: 96% Weight: 160 lbs 11/25/2018 Blood Pressure 1: 150/72 Code : 8480-6 BMI: 24.3 Code : 49782-4 Heart Rate 1 : 65 bpm Height: 5'8" SpO2: 98% Temperature: 36.5 (C) / 97.7 (F) Weight: 160 lbs 10/14/2018 Blood Pressure 1: 140/80 Code : 8480-6 BMI: 24.7 Code : 93688-9 Heart Rate 1 : 59 bpm Height: 5'8" SpO2: 97% Weight: 162 lbs 2 oz 09/02/2018 Blood Pressure 1: 140/76 Code : 8480-6 BMI: 21.9 Code : 58565-4 Heart Rate 1 : 56 bpm Height: 5'8" SpO2: 97% Waist Measure (cm): 94 cm Weight: 144 lbs 05/21/2018 Blood Pressure 1: 136/80 Code : 8480-6 BMI: 24.6 Code : 87116-5 Heart Rate 1 : 57 bpm Height: 5'8" SpO2: 96% Weight: 162 lbs 03/04/2018 Blood Pressure 1: 160/82 Code : 8480-6 BMI: 24.3 Code : 75194-6 Heart Rate 1 : 67 bpm Height: 5'8" SpO2: 99% Temperature: 36.6 (C) / 97.9 (F) Weight: 160 lbs 01/22/2018 Blood Pressure 1: 132/84 Code : 8480-6 BMI: 24.2 Code : 67726-3 Heart Rate 1 : 64 bpm Height: 5'8" SpO2: 95% Weight: 159 lbs 10/22/2017 Blood Pressure 1: 152/78 Code : 8480-6 BMI: 24.0 Code : 39803-6 Heart Rate 1 : 68 bpm Height: 5'8" SpO2: 97% Weight: 158 lbs 08/22/2017 BMI: 24.8 Code: 88850-9 Height: 5'8" Weight: 163 lbs 08/15/2017 Blood Pressure 1: 140/74 Code : 8480-6 Heart Rate 1: 75 bpm Height: 5'8" SpO2: 96% Weight: 06/19/2017 Blood Pressure 1: 146/62 Code : 8480-6 BMI: 25.7 Code : 37603-5 Heart Rate 1 : 64 bpm Height: 5'8" SpO2: 96% Weight: 169 lbs 02/13/2017 Blood Pressure 1: 150/78 Code : 8480-6 BMI: 27.2 Code : 39782-4 Heart Rate 1 : 70 bpm Height: 5'8" SpO2: 96% Weight: 179 lbs 02/05/2017 Blood Pressure 1: 146/74 Code : 8480-6 BMI: 26.9 Code : 74726-3 Heart Rate 1 : 70 bpm Height: 5'8" SpO2: 96% Weight: 177 lbs 02/02/2017 Blood Pressure 1: 124/62 Code : 8480-6 BMI: 26.9 Code : 31548-8 Heart Rate 1 : 54 bpm Height: 5'8" SpO2: 94% Weight: 177 lbs 12/12/2016 Blood Pressure 1: 130/72 Code : 8480-6 BMI: 27.1 Code : 65006-9 Heart Rate 1 : 82 bpm Height: 5'8" SpO2: 95% Weight: 178 lbs 8 oz 06/21/2016 Blood Pressure 1: 136/74 Code : 8480-6 BMI: 25.8 Code : 69211-8 Heart Rate 1 : 86 bpm Height: 5'8" SpO2: 98% Weight: 170 lbs 05/24/2016 Blood Pressure 1: 132/80 Code : 8480-6 BMI: 25.7 Code : 71066-9 Heart Rate 1 : 67 bpm Height: 5'8" SpO2: 96% Weight: 169 lbs 02/02/2016 Blood Pressure 1: 138/80 Code : 8480-6 BMI: 25.8 Code : 60811-1 Heart Rate 1 : 67 bpm Height: 5'8" SpO2: 94% Weight: 170 lbs 11/03/2015 Blood Pressure 1: 138/82 Code : 8480-6 BMI: 26.0 Code : 35734-2 Heart Rate 1 : 80 bpm Height: 5'8" SpO2: 92% Weight: 171 lbs 02/02/2015 Blood Pressure 1: 136/88 Code : 8480-6 BMI: 26.6 Code : 03661-2 Heart Rate 1 : 67 bpm Height: 5'8" SpO2: 97% Temperature: 37.2 (C) / 98.9 (F) Weight: 175 lbs 01/25/2015 Blood Pressure 1: 150/92 Code : 8480-6 BMI: 26.6 Code : 57208-7 Heart Rate 1 : 79 bpm Height: 5'8" SpO2: 98% Weight: 175 lbs 11/26/2014 Blood Pressure 1: 148/92 Code : 8480-6 Blood Pressure 2: 142/92 Code: 8480-6 BMI: 26.5 Code: 47754-1 Heart Rate 1: 68 bpm Height: 5'8" Weight: 174 lbs 09/15/2014 Blood Pressure 1: 150/84 Code : 8480-6 BMI: 26.5 Code : 87024-4 Heart Rate 1 : 80 bpm Height: 5'8" Weight: 174 lbs 08/13/2014 Blood Pressure 1: 140/84 Code : 8480-6 Heart Rate 1: 82 bpm Height: Weight: 08/03/2014 Blood Pressure 1: 142/76 Code : 8480-6 BMI: 26.3 Code : 29852-1 Heart Rate 1 : 80 bpm Height: 5'8" Weight: 173 lbs 07/23/2014 Blood Pressure 1: 148/80 Code : 8480-6 Heart Rate 1: 76 bpm Weight: 175 lbs 06/29/2014 Blood Pressure 1: 140/82 Code : 8480-6 BMI: 26.5 Code : 57251-3 Heart Rate 1 : 60 bpm Height: 5'8" Weight: 174 lbs 04/27/2014 Blood Pressure 1: 112/70 Code : 8480-6 BMI: 26.5 Code : 03291-4 Heart Rate 1 : 72 bpm Height: 5'8" SpO2: 98% Weight: 174 lbs 01/28/2014 Blood Pressure 1: 134/80 Code : 8480-6 BMI: 26.6 Code : 80102-1 Heart Rate 1 : 72 bpm Height: 5'8" Weight: 175 lbs 01/05/2014 Blood Pressure 1: 142/86 Code : 8480-6 BMI: 27.2 Code : 82181-6 Heart Rate 1 : 78 bpm Height: 5'8" Weight: 179 lbs 11/17/2013 Blood Pressure 1: 118/62 Code : 8480-6 BMI: 27.1 Code : 98789-2 Heart Rate 1 : 76 bpm Height: 5'8" Weight: 178 lbs 08/27/2013 Blood Pressure 1: 126/80 Code : 8480-6 BMI: 26.6 Code : 87843-6 Heart Rate 1 : 72 bpm Height: 5'8" Weight: 175 lbs 08/21/2013 Blood Pressure 1: 132/68 Code : 8480-6 Heart Rate 1: 72 bpm Temperature: 36.1 (C) / 97.0 (F) Weight: 08/18/2013 Blood Pressure 1: 124/82 Code : 8480-6 Heart Rate 1: 84 bpm Temperature: 36.6 (C) / 97.9 (F) Weight: 175 lbs 8 oz 04/29/2013 Blood Pressure 1: 134/78 Code : 8480-6 BMI: 26.5 Code : 02906-2 Heart Rate 1 : 72 bpm Height: 5'8" Weight: 174 lbs 8 oz 03/24/2013 Blood Pressure 1: 112/78 Code : 8480-6 BMI: 26.2 Code : 96641-3 Heart Rate 1 : 72 bpm Height: 5'8" Weight: 172 lbs 02/06/2013 Blood Pressure 1: 126/78 Code : 8480-6 Heart Rate 1: 64 bpm Weight: 171 lbs 11/05/2012 Blood Pressure 1: 118/80 Code : 8480-6 Heart Rate 1: 68 bpm SpO2: 98% Weight: 10/31/2012 Blood Pressure 1: 116/66 Code : 8480-6 Heart Rate 1: 72 bpm Weight: 168 lbs 09/25/2012 Blood Pressure 1: 116/80 Code : 8480-6 Heart Rate 1: 84 bpm Temperature: 37.1 (C) / 98.7 (F) Weight: 167 lbs 09/03/2012 Blood Pressure 1: 116/68 Code : 8480-6 Heart Rate 1: 72 bpm Respiratory Rate : 16 bpm Weight: 168 lbs 08/20/2012 Blood Pressure 1: 138/66 Code : 8480-6 Heart Rate 1: 76 bpm Temperature: 36.5 (C) / 97.7 (F) Weight: 169 lbs 8 oz 07/16/2012 Blood Pressure 1: 120/72 Code : 8480-6 Heart Rate 1: 68 bpm Weight: 169 lbs 07/01/2012 Blood Pressure 1: 124/72 Code : 8480-6 Heart Rate 1: 72 bpm Weight: 171 lbs 05/08/2012 Blood Pressure 1: 140/84 Code : 8480-6 Heart Rate 1: 64 bpm Respiratory Rate : 16 bpm Weight: 174 lbs 04/19/2012 Blood Pressure 1: 170/98 Code : 8480-6 Blood Pressure 2: 142/88 Code: 8480-6 Heart Rate 1: 74 bpm Respiratory Rate: 18 bpm Weight: 04/15/2012 Blood Pressure 1: 160/98 Code : 8480-6 Heart Rate 1: 77 bpm Weight: 172 lbs 04/04/2012 Blood Pressure 1: 134/84 Code : 8480-6 Heart Rate 1: 84 bpm Weight: 169 lbs 04/01/2012 Blood Pressure 1: 140/78 Code : 8480-6 Heart Rate 1: 84 bpm Weight: 169 lbs 03/20/2012 Blood Pressure 1: 160/98 Code : 8480-6 Heart Rate 1: 93 bpm SpO2: 98% Weight: 172 lbs 8 oz Functional Status No Functional Status data History of Present Illness Symptom Name Status Result Effective Date Notes Quality constant 10/2018 None Onset and Resolution ongoing 01/13/2019 None Onset of Symptom during adulthood 01/13/2019 None Severity mild 2018 None Triggers no known associated factors 01/13/2019 None Quality primary hypertension 12/16/2018 None Onset and Resolution ongoing 12/16/2018 None Onset of Symptom during adulthood 12/16/2018 None Quality chronic 12/16 None Alleviating Factors medication 12/16/2018 None Blood Pressure Values pt checking blood pressure - see scanned document 12/16/2018 None Pertinent Findings dizziness 12/16/2018 at times Pertinent Findings Denies dyspnea 12/16/2018 None Pertinent Findings Denies edema 12/16/2018 None _ Other: hypertension 12/16/2018 None Quality chronic illness 12/16/2018 None Onset of Symptom years ago 12/16/2018 None Alleviating Factors medication 12/16/2018 None Location-Major on the head 12/06/2018 None Color red 12/06/2018 None Onset and Resolution sudden in onset 12/06/2018 None Onset of Symptom 1 days ago 12/06/2018 None Onset and Resolution sudden in onset 12/06/2018 None Onset of Symptom 1 days ago 12/06/2018 None Location on the face 12/06/2018 None Quality constant None Quality acute 2018 None Onset and Resolution sudden in onset 11/25/2018 None Onset of Symptom 10 days ago 11/25/2018 None Pertinent Findings back pain 11/25/2018 None Pertinent Findings pelvic pain 11/25/2018 None Location in the LLQ 10/14/2018 None Location in the RLQ 10/14/2018 None Location in the epigastric area 10/14/2018 None Quality aching 2017 None Quality cramping None Limitation on Activities moderately limits activities 10/14/2018 None Length of Episodes 2 weeks 10/14/2018 None Annual Medicare Wellness Exam Alcohol Use does not drink any alcohol 09/02/2018 None Annual Medicare Wellness Exam Depression (last 6 months) almost never 09/02/2018 None Annual Medicare Wellness Exam Depression or Hopelessness almost never 09/02/2018 None Annual Medicare Wellness Exam Describe Your Health excellent 09/02/2018 None Annual Medicare Wellness Exam Exercise Habits exercises 3 days per week 09/02/2018 None Annual Medicare Wellness Exam Exercise Habits exercises 30 minutes per day 09/02/2018 None Annual Medicare Wellness Exam Handling Stress usually mitzi effectively 09/02/2018 None Annual Medicare Wellness Exam Interaction with Friends yes 09/02/2018 None Annual Medicare Wellness Exam Interests & Pleasure most of the time 09/02/2018 None Annual Medicare Wellness Exam Life Satisfaction very satisfied 09/02/2018 None Annual Medicare Wellness Exam Motor Vehicle Safety always fastens seat belt: y 09/02/2018 None Annual Medicare Wellness Exam Motor Vehicle Safety drives after drinking: n 09/02/2018 None Annual Medicare Wellness Exam Motor Vehicle Safety rides with someone who has been drinking: n 2017 None Annual Medicare Wellness Exam Smoking and Tobacco Use cigarette smoker 09/02/2018 None Annual Medicare Wellness Exam Social & Emotional Support always 09/02/2018 None Annual Medicare Wellness Exam Stress some of the time 09/02/2018 None Annual Medicare Wellness Exam Sun Exposure protects skin when outdoors: y 09/02/2018 None Annual Medicare Wellness Exam Aspirin Use no 09/02/2018 None Annual Medicare Wellness Exam Blood Glucose (self reported) don't know 09/02/2018 None Annual Medicare Wellness Exam Blood Pressure (self reported ) borderline (120/80 - 139/89) 09/02/2018 None Annual Medicare Wellness Exam Cholesterol (self reported) don't know 09/02/2018 None Annual Medicare Wellness Exam Hemaglobin A-1C (self reported ) don't know 09/02/2018 None Annual Medicare Wellness Exam Hours of Sleep 10 09/02/2018 None Annual Medicare Wellness Exam Nutrition servings of fried food / high fat foods per day: 1 2017 None Annual Medicare Wellness Exam Nutrition servings of high fiber / whole grain per day: 1 09/02/2018 None Annual Medicare Wellness Exam Nutrition servings of vegetables / fruit per day: 3 09/02/2018 None hypertension Quality chronic 05/21/2018 None hypertension Quality intermittent 05/21/2018 None hypertension Quality primary hypertension 05/21/2018 None hypertension Onset and Resolution ongoing 05/21/2018 None hypertension Onset of Symptom during adulthood 05/21/2018 None hypertension Blood Pressure Values pt checking blood pressure - see scanned document 05/21/2018 None hypertension Alleviating Factors medication 05/21/2018 None hypertension Pertinent Findings Denies anxiety 05/21/2018 None hypertension Pertinent Findings Denies decreased energy 05/21/2018 None hypertension Pertinent Findings Denies dizziness 05/21/2018 None hypertension Pertinent Findings Denies dyspnea 05/21/2018 None hypertension Pertinent Findings Denies edema 05/21/2018 None abdominal pain Location in the epigastric area 05/21/2018 None abdominal pain Quality improving 05/21/2018 None abdominal pain Quality stable 05/21/2018 None abdominal pain Onset and Resolution ongoing 05/21/2018 None abdominal pain Onset of Symptom 2 weeks ago 05/21/2018 None abdominal pain Alleviating Factors medication 05/21/2018 None abdominal pain Pertinent Findings Denies bloating 05/21/2018 None abdominal pain Pertinent Findings Denies dyspepsia 05/21/2018 None abdominal pain Pertinent Findings nausea 05/21/2018 "once in a while" arthropod bite Location on the right leg 03/04/2018 and pelvis arthropod bite Quality acute 03/04/2018 None arthropod bite Quality erythematous 03/04/2018 None arthropod bite Onset and Resolution ongoing 03/04/2018 None arthropod bite Onset of Symptom 4 days ago 03/04/2018 None arthropod bite Triggers outdoor exposure 03/04/2018 None hypertension Quality chronic 01/22/2018 None hypertension Quality intermittent 01/22/2018 None hypertension Quality primary hypertension 01/22/2018 None hypertension Onset and Resolution ongoing 01/22/2018 None hypertension Onset of Symptom during adulthood 01/22/2018 None hypertension Blood Pressure Values pt checking blood pressure - see scanned document 01/22/2018 None hypertension Alleviating Factors medication 01/22/2018 None hypertension Pertinent Findings Denies dizziness 01/22/2018 None hypertension Pertinent Findings Denies dyspnea 01/22/2018 None hypertension Pertinent Findings Denies edema 01/22/2018 None abdominal pain Location in the epigastric area 01/22/2018 None abdominal pain Onset and Resolution ongoing 01/22/2018 None abdominal pain Onset of Symptom 2 weeks ago 01/22/2018 None abdominal pain Alleviating Factors medication 01/22/2018 None abdominal pain Pertinent Findings Denies bloating 01/22/2018 None abdominal pain Pertinent Findings nausea 01/22/2018 "once in a while" hypertension Pertinent Findings Denies decreased energy 01/22/2018 None hypertension Pertinent Findings Denies anxiety 01/22/2018 None abdominal pain Quality stable 01/22/2018 None abdominal pain Quality improving 01/22/2018 None abdominal pain Pertinent Findings Denies dyspepsia 01/22/2018 None hypertension Quality chronic 10/22/2017 None hypertension Onset and Resolution ongoing 10/22/2017 None hypertension Onset of Symptom during adulthood 10/22/2017 None hypertension Blood Pressure Values pt checking blood pressure - see scanned document 10/22/2017 None hypertension Alleviating Factors medication 10/22/2017 None hypertension Pertinent Findings Denies dizziness 10/22/2017 None hypertension Pertinent Findings Denies dyspnea 10/22/2017 None hypertension Pertinent Findings Denies edema 10/22/2017 None abdominal pain Location in the epigastric area 10/22/2017 None abdominal pain Onset and Resolution ongoing 10/22/2017 None hypertension Quality primary hypertension 10/22/2017 None hypertension Quality intermittent 10/22/2017 None abdominal pain Quality constant 10/22/2017 over the last few days abdominal pain Alleviating Factors medication 10/22/2017 None abdominal pain Pertinent Findings bloating 10/22/2017 None abdominal pain Pertinent Findings nausea 10/22/2017 "once in a while" abdominal pain Quality acute 10/22/2017 None abdominal pain Onset of Symptom 2 weeks ago 10/22/2017 None Annual Medicare Wellness Exam Alcohol Use does not drink any alcohol 08/22/2017 None Annual Medicare Wellness Exam Aspirin Use yes 08/22/2017 81 Annual Medicare Wellness Exam Blood Glucose (self reported) don't know 08/22/2017 None Annual Medicare Wellness Exam Blood Pressure (self reported ) borderline (120/80 - 139/89) 08/22/2017 None Annual Medicare Wellness Exam Cholesterol (self reported) don't know 08/22/2017 None Annual Medicare Wellness Exam Depression (last 6 months) almost never 08/22/2017 None Annual Medicare Wellness Exam Depression or Hopelessness almost never 08/22/2017 None Annual Medicare Wellness Exam Describe Your Health good 08/22/2017 None Annual Medicare Wellness Exam Exercise Habits does not exercise 08/22/2017 None Annual Medicare Wellness Exam Handling Stress usually mitzi effectively 08/22/2017 None Annual Medicare Wellness Exam Hemaglobin A-1C (self reported ) don't know 08/22/2017 None Annual Medicare Wellness Exam Hours of Sleep 5-7 08/22/2017 None Annual Medicare Wellness Exam Interaction with Friends yes 08/22/2017 None Annual Medicare Wellness Exam Interests & Pleasure most of the time 08/22/2017 None Annual Medicare Wellness Exam Life Satisfaction very satisfied 08/22/2017 None Annual Medicare Wellness Exam Motor Vehicle Safety always fastens seat belt: y 08/22/2017 None Annual Medicare Wellness Exam Nutrition servings of vegetables / fruit per day: n 08/22/2017 None Annual Medicare Wellness Exam Smoking and Tobacco Use cigarette smoker 08/22/2017 None Annual Medicare Wellness Exam Social & Emotional Support usually 08/22/2017 None Annual Medicare Wellness Exam Stress almost never 08/22/2017 None Annual Medicare Wellness Exam Sun Exposure protects skin when outdoors: n 08/22/2017 None rash Location-Major on the upper body 08/15/2017 None rash Location-Major on the lower body 08/15/2017 None rash Color red 2016 None rash Onset and Resolution sudden in onset 08/15/2017 None rash Onset of Symptom 2 days ago 08/15/2017 None rash Triggers no known triggers 08/15/2017 None rash Pertinent Findings itching 08/15/2017 None hypertension Quality chronic 06/19/2017 None hypertension Onset and Resolution ongoing 06/19/2017 None hypertension Onset of Symptom during adulthood 06/19/2017 None hypertension Blood Pressure Values pt checking blood pressure - see scanned document 06/19/2017 None hypertension Severity mild 06/19/2017 None hypertension Alleviating Factors medication 06/19/2017 None hypertension Pertinent Findings Denies dizziness 06/19/2017 None hypertension Pertinent Findings Denies dyspnea 06/19/2017 None hypertension Pertinent Findings Denies edema 06/19/2017 None abdominal pain Location in the epigastric area 06/19/2017 None abdominal pain Radiating the back 06/19/2017 None abdominal pain Quality acute 06/19/2017 None abdominal pain Quality intermittent 06/19/2017 None abdominal pain Onset of Symptom 1.5 weeks ago 06/19/2017 None abdominal pain Alleviating Factors medication 06/19/2017 (muscle relaxers) lower leg pain Location on the left 06/19/2017 None lower leg pain Location in the calf region 06/19/2017 None lower leg pain Location in the achilles tendon 06/19/2017 None lower leg pain Quality acute 06/19/2017 None abdominal pain Onset and Resolution ongoing 06/19/2017 None lower leg pain Onset and Resolution ongoing 06/19/2017 None hypertension Quality chronic 02/13/2017 None hypertension Onset and Resolution ongoing 02/13/2017 None hypertension Onset of Symptom during adulthood 02/13/2017 None hypertension Blood Pressure Values pt checking blood pressure - see scanned document 02/13/2017 None hypertension Severity mild 02/13/2017 None hypertension Alleviating Factors medication 02/13/2017 None hypertension Pertinent Findings Denies dizziness 02/13/2017 None hypertension Pertinent Findings Denies dyspnea 02/13/2017 None hypertension Pertinent Findings Denies edema 02/13/2017 None abdominal pain Location in the epigastric area 02/13/2017 None abdominal pain Radiating the back 02/13/2017 None abdominal pain Quality acute 02/13/2017 None abdominal pain Quality intermittent 02/13/2017 None abdominal pain Onset and Resolution sudden in onset 02/13/2017 None abdominal pain Onset of Symptom 1.5 weeks ago 02/13/2017 None abdominal pain Alleviating Factors medication 02/13/2017 (muscle relaxers) lower leg pain Location on the left 02/13/2017 None lower leg pain Location in the achilles tendon 02/13/2017 None lower leg pain Location in the calf region 02/13/2017 None lower leg pain Quality acute 02/13/2017 None lower leg pain Mechanism of injury unknown 02/13/2017 None flank pain Location on both sides 02/05/2017 None flank pain Quality aching 02/05/2017 None flank pain Quality constant 02/05/2017 None flank pain Onset and Resolution sudden in onset 02/05/2017 None flank pain Pertinent Findings bladder pain 02/05/2017 None back pain Location in the left lower back area 02/05/2017 None back pain Onset and Resolution ongoing 02/05/2017 None back pain Pertinent Findings Denies fever 02/05/2017 None flank pain Location on both sides 02/02/2017 None flank pain Quality aching 02/02/2017 None flank pain Quality constant 02/02/2017 None flank pain Onset and Resolution sudden in onset 02/02/2017 None flank pain Onset of Symptom 3 days ago 02/02/2017 None flank pain Pertinent Findings bladder pain 02/02/2017 None pelvic pain Location diffusely 02/02/2017 None pelvic pain Quality aching 02/02/2017 None pelvic pain Quality constant 02/02/2017 None pelvic pain Quality burning 02/02/2017 None pelvic pain Onset and Resolution sudden in onset 02/02/2017 None pelvic pain Onset of Symptom 3 days ago 02/02/2017 None pelvic pain Pertinent Findings bladder pain 02/02/2017 None hypertension Quality chronic 12/12/2016 None hypertension Onset and Resolution ongoing 12/12/2016 None hypertension Onset of Symptom during adulthood 12/12/2016 None hypertension Blood Pressure Values pt checking blood pressure - see scanned document 12/12/2016 None hypertension Severity mild 12/12/2016 None hypertension Alleviating Factors medication 12/12/2016 None hypertension Pertinent Findings Denies dizziness 12/12/2016 None hypertension Pertinent Findings dyspnea 12/12/2016 occasionally hypertension Pertinent Findings edema 12/12/2016 in the left ankle depression Onset and Resolution ongoing 12/12/2016 None depression Alleviating Factors medication 12/12/2016 None fatigue Quality acute 12/12/2016 None dysuria Quality acute 12/12/2016 None dysuria Onset and Resolution sudden in onset 12/12/2016 None dysuria Onset of Symptom 1 weeks ago 12/12/2016 None myalgias Location on both legs 12/12/2016 None myalgias Quality acute 12/12/2016 None myalgias Quality intermittent 12/12/2016 None myalgias Quality tenderness 12/12/2016 and heaviness and tightness myalgias Onset and Resolution ongoing 12/12/2016 None myalgias Onset of Symptom 1 months ago 12/12/2016 None myalgias Triggers no known associated factors 12/12/2016 None sinus congestion Onset and Resolution sudden in onset 06/21/2016 None sinus congestion Onset of Symptom 1 days ago 06/21/2016 None sinus congestion Frequency of Episodes daily 06/21/2016 None sinus congestion Timing of Episodes all day long 06/21/2016 None sinus congestion Pertinent Findings hoarseness 06/21/2016 None sinus congestion Location on both sides 06/21/2016 None sinus congestion Quality fullness 06/21/2016 None sinus congestion Quality pressure 06/21/2016 None sinus congestion Quality pain 06/21/2016 None sinus congestion Quality constant 06/21/2016 None sore throat Location diffusely 06/21/2016 None sore throat Quality dull 06/21/2016 None sore throat Quality scratchy 06/21/2016 None sore throat Onset and Resolution sudden in onset 06/21/2016 None sore throat Onset of Symptom 1 days ago 06/21/2016 None hypertension Quality chronic 05/24/2016 None hypertension Onset and Resolution ongoing 05/24/2016 None hypertension Onset of Symptom during adulthood 05/24/2016 None hypertension Blood Pressure Values pt checking blood pressure - see scanned document 05/24/2016 None hypertension Severity mild 05/24/2016 None hypertension Alleviating Factors medication 05/24/2016 None hypertension Pertinent Findings Denies dizziness 05/24/2016 None hypertension Pertinent Findings Denies dyspnea 05/24/2016 None hypertension Pertinent Findings Denies edema 05/24/2016 None depression Onset and Resolution ongoing 05/24/2016 None depression Alleviating Factors medication 05/24/2016 None hypertension Quality chronic 02/02/2016 None hypertension Onset and Resolution ongoing 02/02/2016 None hypertension Blood Pressure Values pt checking blood pressure - see scanned document 02/02/2016 None hypertension Severity mild 02/02/2016 None hypertension Alleviating Factors medication 02/02/2016 None hypertension Pertinent Findings Denies dizziness 02/02/2016 None hypertension Pertinent Findings Denies dyspnea 02/02/2016 None hypertension Pertinent Findings Denies edema 02/02/2016 None hypertension Onset of Symptom during adulthood 02/02/2016 None hypertension Quality chronic 11/03/2015 None hypertension Onset and Resolution ongoing 11/03/2015 None hypertension Blood Pressure Values pt checking blood pressure - see scanned document 11/03/2015 None hypertension Severity mild 11/03/2015 None hypertension Alleviating Factors medication 11/03/2015 None hypertension Pertinent Findings Denies decreased energy 11/03/2015 None hypertension Pertinent Findings Denies dizziness 11/03/2015 None hypertension Pertinent Findings Denies dyspnea 11/03/2015 None hypertension Pertinent Findings Denies edema 11/03/2015 None hypertension Pertinent Findings Denies lethargy 11/03/2015 None office procedure Procedure to be performed excision 02/02/2015 biopsy left upper arm lesion office procedure Reason for Procedure changing skin lesion 02/02/2015 None hypertension Quality chronic 01/25/2015 None hypertension Onset and Resolution ongoing 01/25/2015 None hypertension Blood Pressure Values pt checking blood pressure - see scanned document 01/25/2015 None hypertension Severity mild 01/25/2015 None hypertension Alleviating Factors medication 01/25/2015 None hypertension Pertinent Findings Denies decreased energy 01/25/2015 None hypertension Pertinent Findings Denies dizziness 01/25/2015 None hypertension Pertinent Findings Denies dyspnea 01/25/2015 None hypertension Pertinent Findings Denies edema 01/25/2015 None hypertension Pertinent Findings Denies lethargy 01/25/2015 None hypertension Quality chronic 11/26/2014 None hypertension Onset and Resolution ongoing 11/26/2014 None hypertension Blood Pressure Values pt checking blood pressure - see scanned document 11/26/2014 None hypertension Alleviating Factors medication 11/26/2014 None hypertension Pertinent Findings Denies decreased energy 11/26/2014 None hypertension Pertinent Findings Denies dizziness 11/26/2014 None hypertension Pertinent Findings Denies dyspnea 11/26/2014 None hypertension Pertinent Findings Denies edema 11/26/2014 None hypertension Pertinent Findings Denies lethargy 11/26/2014 None hypertension Severity mild 11/26/2014 None hip pain Location on the left 09/15/2014 None hip pain Quality dull ache 09/15/2014 while sitting hip pain Quality sharp pain 09/15/2014 when walking hip pain Onset of Symptom 1 weeks ago Sunday09/15/2014 None hip pain Pertinent Findings pain at rest 09/15/2014 None hip pain Pertinent Findings pain with movement 09/15/2014 None hypertension Quality chronic 08/13/2014 None hypertension Onset and Resolution ongoing 08/13/2014 None hypertension Blood Pressure Values patient checking blood pressure at home - did not bring in readings 08/13/2014 None hypertension Blood Pressure Values pt checking blood pressure - see scanned document 08/13/2014 None hypertension Alleviating Factors medication 08/13/2014 None hypertension Pertinent Findings Denies decreased energy 08/13/2014 None hypertension Pertinent Findings Denies dizziness 08/13/2014 None hypertension Pertinent Findings Denies dyspnea 08/13/2014 None hypertension Pertinent Findings Denies edema 08/13/2014 None hypertension Pertinent Findings Denies lethargy 08/13/2014 None hand pain Location on the left 08/13/2014 None hand pain Location on the right 08/13/2014 None hand pain Onset and Resolution ongoing 08/13/2014 None hand pain Pertinent Findings Denies numbness 08/13/2014 None hand pain Pertinent Findings pain with movement 08/13/2014 getting better-taking aleve along with meds hand pain Pertinent Findings Denies stiffness 08/13/2014 None knee pain Location on the left 08/13/2014 None knee pain Location on the right 08/13/2014 None knee pain Quality constant 08/13/2014 None knee pain Pertinent Findings Denies numbness 08/13/2014 None knee pain Pertinent Findings pain with movement 08/13/2014 better than last visit knee pain Pertinent Findings stiffness 08/13/2014 None cough Location in the throat 08/03/2014 None cough Quality hacking 08/03/2014 None cough Onset of Symptom 1 weeks ago 08/03/2014 None cough Pertinent Findings Denies fever 08/03/2014 None cough Pertinent Findings Denies hoarseness 08/03/2014 None cough Pertinent Findings ill contacts 08/03/2014 cough Pertinent Findings nasal congestion 08/03/2014 None earache Location left ear 08/03/2014 None earache Quality acute 08/03/2014 None earache Triggers allergies 08/03/2014 None cough Onset and Resolution ongoing 08/03/2014 None cough Limitation on Activities does not limit activities 08/03/2014 None cough Frequency of Episodes increasing 08/03/2014 None cough Triggers post nasal drip 08/03/2014 None cough Triggers ill contacts 08/03/2014 None cough Triggers known allergens 08/03/2014 None cough Alleviating Factors OTC medications 08/03/2014 None cough Pertinent Findings dyspnea 08/03/2014 None cough Pertinent Findings Denies purulent sputum 08/03/2014 None cough Pertinent Findings Denies vomiting 08/03/2014 None cough Pertinent Findings Denies sputum production 08/03/2014 None hypertension Quality chronic 07/23/2014 None hypertension Onset and Resolution ongoing 07/23/2014 None hypertension Blood Pressure Values patient checking blood pressure at home - did not bring in readings 07/23/2014 None hypertension Blood Pressure Values pt checking blood pressure - see scanned document 07/23/2014 None hypertension Alleviating Factors medication 07/23/2014 None hypertension Pertinent Findings Denies decreased energy 07/23/2014 None hypertension Pertinent Findings Denies dizziness 07/23/2014 None hypertension Pertinent Findings Denies dyspnea 07/23/2014 None hypertension Pertinent Findings Denies edema 07/23/2014 None hypertension Pertinent Findings Denies lethargy 07/23/2014 None hand pain Location on the left 07/23/2014 None hand pain Location on the right 07/23/2014 None hand pain Onset and Resolution ongoing 07/23/2014 None hand pain Pertinent Findings Denies numbness 07/23/2014 None hand pain Pertinent Findings pain with movement 07/23/2014 getting better-taking aleve along with meds hand pain Pertinent Findings Denies stiffness 07/23/2014 None knee pain Location on the left 07/23/2014 None knee pain Location on the right 07/23/2014 None knee pain Quality constant 07/23/2014 None knee pain Pertinent Findings Denies numbness 07/23/2014 None knee pain Pertinent Findings stiffness 07/23/2014 None knee pain Pertinent Findings pain with movement 07/23/2014 better than last visit hypertension Quality chronic 06/29/2014 None hypertension Blood Pressure Values patient checking blood pressure at home - did not bring in readings 06/29/2014 None hypertension Blood Pressure Values pt checking blood pressure - see scanned document 06/29/2014 None hypertension Alleviating Factors medication 06/29/2014 None hypertension Pertinent Findings decreased energy 06/29/2014 None hypertension Pertinent Findings Denies dizziness 06/29/2014 None hypertension Pertinent Findings Denies dyspnea 06/29/2014 None hypertension Pertinent Findings Denies edema 06/29/2014 None hypertension Pertinent Findings Denies lethargy 06/29/2014 None hypertension Onset and Resolution ongoing 06/29/2014 None hand pain Location on the left 06/29/2014 None hand pain Location on the right 06/29/2014 None hand pain Pertinent Findings Denies numbness 06/29/2014 None hand pain Pertinent Findings pain with movement 06/29/2014 None hand pain Pertinent Findings stiffness 06/29/2014 None hand pain Onset and Resolution ongoing 06/29/2014 None knee pain Location on the left 06/29/2014 None knee pain Location on the right 06/29/2014 None knee pain Quality constant 06/29/2014 None knee pain Pertinent Findings pain with movement 06/29/2014 None knee pain Pertinent Findings Denies numbness 06/29/2014 None knee pain Pertinent Findings stiffness 06/29/2014 None earache Location left ear 04/27/2014 PRESSURE earache Onset of Symptom 2 weeks ago 04/27/2014 None earache Quality chronic 04/27/2014 None earache Onset and Resolution ongoing 04/27/2014 None earache Severity mild 04/27/2014 None earache Frequency of Episodes increasing 04/27/2014 None earache Triggers allergies 04/27/2014 None earache Alleviating Factors medication 04/27/2014 Auro ear relief drop hypertension Blood Pressure Values patient checking blood pressure at home - did not bring in readings 01/28/2014 None hypertension Pertinent Findings decreased energy 01/28/2014 None hypertension Pertinent Findings Denies dizziness 01/28/2014 None hypertension Pertinent Findings Denies dyspnea 01/28/2014 None hypertension Pertinent Findings Denies edema 01/28/2014 None hypertension Pertinent Findings lethargy 01/28/2014 None hypertension Quality chronic 01/28/2014 None hypertension Blood Pressure Values pt checking blood pressure - see scanned document 01/28/2014 None hypertension Alleviating Factors medication 01/28/2014 None hypertension Quality chronic 01/05/2014 None hypertension Onset and Resolution ongoing 01/05/2014 None hypertension Blood Pressure Values patient checking blood pressure at home - did not bring in readings 01/05/2014 None hypertension Pertinent Findings Denies anxiety 01/05/2014 None hypertension Exacerbating Factors stress 01/05/2014 None hypertension Alleviating Factors medication 01/05/2014 None polymyalgia rheumatica Initial treatment Other: prednisone 11/17/2013 stopped it last week as it didn't work this time hypertension Quality chronic 11/17/2013 None hypertension Onset and Resolution ongoing 11/17/2013 states legs feel numb hypertension Blood Pressure Values pt checking blood pressure - see scanned document 11/17/2013 None hypertension Alleviating Factors medication 11/17/2013 None polymyalgia rheumatica Location hips 11/17/2013 None polymyalgia rheumatica Location knees 11/17/2013 None polymyalgia rheumatica Location shoulders 11/17/2013 None polymyalgia rheumatica Pertinent Lab Findings elevated ESR 11/17/2013 None polymyalgia rheumatica Pertinent Lab Findings elevated CRP 11/17/2013 None polymyalgia rheumatica Severity moderate 11/17/2013 None polymyalgia rheumatica Pertinent Findings Denies muscle atrophy 11/17/2013 None polymyalgia rheumatica Pertinent Findings numbness 11/17/2013 pt states that she has some pain and numbness in her lower legs and back - feels pain when she is sitting or standing. malaise Quality improving 08/27/2013 None malaise Quality intermittent 08/27/2013 states she changed her bp med to evening and it has helped with her legs and energy some. also sleeping somewhat better hypertension Quality constant 08/27/2013 None hypertension Blood Pressure Values pt checking blood pressure - see scanned document 08/27/2013 None malaise Alleviating Factors rest 08/27/2013 None malaise Exacerbating Factors activity 08/27/2013 None malaise Pertinent Findings depressed mood 08/27/2013 None malaise Pertinent Findings Denies weight loss 08/27/2013 None malaise Pertinent Findings Denies upper respiratory tract symptoms 08/27/2013 None fatigue Onset and Resolution ongoing 08/21/2013 None fatigue Onset and Resolution gradual in onset 08/21/2013 None fatigue Limitation on Activities moderately limits activities 08/21/2013 None fatigue Frequency of Episodes daily 08/21/2013 None fatigue Timing of Episodes no specific time 08/21/2013 None fatigue Triggers no known associated factors 08/21/2013 None fatigue Alleviating Factors rest 08/21/2013 None fatigue Exacerbating Factors activity 08/21/2013 None fatigue Quality intermittent 08/21/2013 None fatigue Quality worsening 08/21/2013 None fatigue Pertinent Findings Denies confusion 08/21/2013 None fatigue Pertinent Findings Denies depressed mood 08/21/2013 None fatigue Pertinent Findings Denies dizziness 08/21/2013 None fatigue Pertinent Findings Denies edema 08/21/2013 None fatigue Pertinent Findings Denies fever 08/21/2013 None fatigue Pertinent Findings Denies insomnia 08/21/2013 None fatigue Pertinent Findings Denies lightheadedness 08/21/2013 None blood pressure followup Quality worsening 08/18/2013 None lower leg pain Location on the left 08/18/2013 None lower leg pain Location on the right 08/18/2013 None lower leg pain Quality tingling 08/18/2013 None lower leg pain Quality numbness 08/18/2013 and tight feeling lower leg pain Onset of Symptom few days ago 08/18/2013 None lower leg pain Severity moderate 08/18/2013 None blood pressure followup Blood Pressure Values pt checking blood pressure at home, did not bring in to clinic 08/18/2013 states it has been gradually increasing. blood pressure followup Onset of Symptom 2 days ago 08/18/2013 None blood pressure followup Triggers no known associated factors 08/18/2013 None blood pressure followup Alleviating Factors medication 08/18/2013 None blood pressure followup Pertinent Findings Denies confusion 08/18/2013 None blood pressure followup Pertinent Findings decreased energy 08/18/2013 None blood pressure followup Pertinent Findings Denies dizziness 08/18/2013 None blood pressure followup Pertinent Findings Denies dyspnea 08/18/2013 None blood pressure followup Pertinent Findings Denies edema 08/18/2013 None blood pressure followup Pertinent Findings Denies nausea 08/18/2013 None blood pressure followup Pertinent Findings Denies irritability 08/18/2013 None blood pressure followup Pertinent Findings Denies tachycardia 08/18/2013 None hypertension Quality chronic 04/29/2013 None hypertension Onset and Resolution ongoing 04/29/2013 None hypertension Blood Pressure Values pt checking blood pressure - see scanned document 04/29/2013 None urinary frequency Quality chronic 03/24/2013 None abdominal pain Location in the suprapubic area 03/24/2013 None abdominal pain Quality worsening 03/24/2013 None abdominal pain Onset of Symptom 2 weeks ago 03/24/2013 None abdominal pain Triggers no known associated factors 03/24/2013 None abdominal pain Pertinent Findings Denies chills 03/24/2013 None abdominal pain Pertinent Findings Denies cough 03/24/2013 None hypertension Quality chronic 02/06/2013 None hypertension Onset and Resolution ongoing 02/06/2013 None hypertension Blood Pressure Values pt checking blood pressure - see scanned document 02/06/2013 None hypertension Onset of Symptom during adulthood 02/06/2013 None hypertension Severity mild 02/06/2013 None hypertension Pertinent Findings Denies anxiety 02/06/2013 None hypertension Pertinent Findings Denies confusion 02/06/2013 None hypertension Pertinent Findings Denies decreased energy 02/06/2013 None hypertension Pertinent Findings Denies dizziness 02/06/2013 None hypertension Pertinent Findings Denies dyspnea 02/06/2013 None hypertension Pertinent Findings Denies edema 02/06/2013 None hypertension Exacerbating Factors stress 02/06/2013 None hypertension Alleviating Factors medication 02/06/2013 None earache Location both ears 11/05/2012 feels alot of pressure in ears earache Onset of Symptom 2 days ago 11/05/2012 None shortness of breath Quality intermittent 11/05/2012 None shortness of breath Pertinent Findings lightheadedness 11/05/2012 None shortness of breath Onset and Resolution gradual in onset 11/05/2012 None shortness of breath Onset and Resolution ongoing 11/05/2012 None shortness of breath Onset of Symptom 1 weeks ago 11/05/2012 None hypertension Quality chronic 10/31/2012 None hypertension Onset and Resolution ongoing 10/31/2012 None hypertension Blood Pressure Values pt checking blood pressure - see scanned document 10/31/2012 None hypertension Severity mild 10/31/2012 None hypertension Frequency of Episodes unchanged 10/31/2012 None hypertension Significant Family History heart disease 10/31/2012 None hypertension Triggers smoking 10/31/2012 None hypertension Triggers stress 10/31/2012 None hypertension Alleviating Factors medication 10/31/2012 None hypertension Pertinent Findings anxiety 10/31/2012 None hypertension Pertinent Findings Denies dyspnea 10/31/2012 None urinary urgency Quality acute 09/25/2012 None urinary urgency Onset and Resolution sudden in onset 09/25/2012 None urinary urgency Onset of Symptom 1 days ago 09/25/2012 None urinary urgency Pertinent Findings bladder pain 09/25/2012 None urinary urgency Pertinent Findings chills 09/25/2012 None urinary urgency Pertinent Findings back pain 09/25/2012 None hypertension Quality chronic 09/25/2012 None hypertension Onset and Resolution ongoing 09/25/2012 None hypertension Blood Pressure Values pt checking blood pressure - see scanned document 09/25/2012 None urinary urgency Limitation on Activities moderately limits activities 09/25/2012 None urinary urgency Triggers no known associated factors 09/25/2012 None hypertension Severity mild 09/25/2012 None hypertension Pertinent Findings Denies anxiety 09/25/2012 None hypertension Pertinent Findings Denies edema 09/25/2012 None hypertension Quality chronic 09/03/2012 None hypertension Onset and Resolution ongoing 09/03/2012 None hypertension Blood Pressure Values pt checking blood pressure - see scanned document 09/03/2012 None hypertension Quality stable 09/03/2012 None hypertension Onset of Symptom during adulthood 09/03/2012 None hypertension Alleviating Factors medication 09/03/2012 None hypertension Pertinent Findings Denies anxiety 09/03/2012 None hypertension Pertinent Findings Denies decreased energy 09/03/2012 None hypertension Pertinent Findings Denies dyspnea 09/03/2012 None hypertension Pertinent Findings Denies edema 09/03/2012 None hypertension Severity mild 09/03/2012 None hypertension Triggers stress 09/03/2012 None hypertension Triggers smoking 09/03/2012 None hypertension Quality chronic 08/20/2012 None hypertension Onset and Resolution ongoing 08/20/2012 None hypertension Blood Pressure Values pt checking blood pressure - see scanned document 08/20/2012 states that it is worsening urinary frequency Quality acute 08/20/2012 None urinary frequency Pertinent Findings back pain 08/20/2012 None urinary frequency Pertinent Findings bladder pain 08/20/2012 None urinary frequency Pertinent Findings urinary urgency 08/20/2012 None urinary frequency Onset and Resolution ongoing 08/20/2012 None urinary frequency Onset of Symptom 4 days ago 08/20/2012 None urinary frequency Limitation on Activities does not limit activities 08/20/2012 None urinary frequency Frequency of Episodes unchanged 08/20/2012 None urinary frequency Significant Medical Conditions urinary tract infections 08/20/2012 None urinary frequency Triggers no known associated factors 08/20/2012 None urinary frequency Pertinent Findings Denies encopresis 08/20/2012 None hypertension Onset of Symptom during adulthood 08/20/2012 None hypertension Severity not consistently severe symptoms, the symptoms fluctuate from no symptoms to anxiety and headaches 08/20/2012 None hypertension Triggers no known associated factors 08/20/2012 None abdominal pain Location in the RUQ 07/16/2012 None abdominal pain Quality dull 07/16/2012 None abdominal pain Quality worsening 07/16/2012 None abdominal pain Quality cramping 07/16/2012 None abdominal pain Quality aching 07/16/2012 None abdominal pain Pertinent Findings nausea 07/16/2012 None constipation Quality worsening 07/16/2012 States she had a small BM this morning. constipation Onset and Resolution ongoing 07/16/2012 None constipation Quality acute 07/16/2012 None constipation Onset of Symptom 1 months ago 07/16/2012 worsened over the last week. constipation Severity moderate 07/16/2012 None constipation Frequency of Episodes increasing 07/16/2012 None constipation Triggers no known associated factors 07/16/2012 States she has avoided cheese. States she took benefiber for a week, became bloated so she stopped it. constipation Pertinent Findings bloating 07/16/2012 None constipation Pertinent Findings Denies emesis 07/16/2012 None constipation Pertinent Findings nausea 07/16/2012 None abdominal pain Triggers no known associated factors 07/16/2012 None abdominal pain Onset of Symptom 1 months ago 07/16/2012 None abdominal pain Limitation on Activities does not limit activities 07/16/2012 None abdominal pain Frequency of Episodes unchanged 07/16/2012 None hypertension Quality stable 07/01/2012 None hypertension Quality chronic 07/01/2012 None hypertension Onset of Symptom during adulthood 07/01/2012 None hypertension Blood Pressure Values pt checking blood pressure - see scanned document 07/01/2012 None hypertension Triggers stress 07/01/2012 infection hypertension Alleviating Factors medication 07/01/2012 None hypertension Onset and Resolution ongoing 07/01/2012 None hypertension Pertinent Findings Denies anxiety 07/01/2012 None hypertension Pertinent Findings Denies decreased energy 07/01/2012 None hypertension Pertinent Findings Denies dyspnea 07/01/2012 None hypertension Pertinent Findings Denies edema 07/01/2012 None hypertension Blood Pressure Values pt checking blood pressure - see scanned document 05/08/2012 None hypertension Quality chronic 05/08/2012 None hypertension Onset and Resolution ongoing 05/08/2012 None hypertension Quality chronic 04/19/2012 None hypertension Onset and Resolution ongoing 04/19/2012 worse over the past 2 days hypertension Onset of Symptom during adulthood 04/19/2012 None hypertension Blood Pressure Values pt checking blood pressure - see scanned document 04/19/2012 None hypertension Severity not consistently severe symptoms, the symptoms fluctuate from no symptoms to anxiety and headaches 04/19/2012 None hypertension Triggers stress 04/19/2012 infection hypertension Alleviating Factors medication 04/19/2012 None hypertension Quality acute 04/15/2012 None hypertension Onset and Resolution ongoing 04/15/2012 None hypertension Onset of Symptom _ months ago 04/15/2012 None hypertension Blood Pressure Values pt checking blood pressure - see scanned document 04/15/2012 None hypertension Severity mild 04/15/2012 None hypertension Frequency of Episodes unchanged 04/15/2012 None hypertension Triggers no known associated factors 04/15/2012 None hypertension Alleviating Factors medication 04/15/2012 None hypertension Pertinent Findings Denies anxiety 04/15/2012 None hypertension Pertinent Findings Denies confusion 04/15/2012 None hypertension Pertinent Findings decreased energy 04/15/2012 None hypertension Pertinent Findings dizziness 04/15/2012 None hypertension Pertinent Findings Denies edema 04/15/2012 None hypertension Significant Medications tobacco 04/15/2012 None hypertension Onset and Resolution ongoing 04/04/2012 None hypertension Blood Pressure Values pt checking blood pressure - see scanned document 04/04/2012 None hypertension Quality acute 04/04/2012 None hypertension Onset of Symptom 1 months ago 04/04/2012 None hypertension Severity mild 04/04/2012 None hypertension Frequency of Episodes unchanged 04/04/2012 None hypertension Triggers no known associated factors 04/04/2012 None hypertension Alleviating Factors medication 04/04/2012 None hypertension Pertinent Findings Denies anxiety 04/04/2012 None hypertension Pertinent Findings Denies confusion 04/04/2012 None hypertension Pertinent Findings dizziness 04/04/2012 None hypertension Pertinent Findings decreased energy 04/04/2012 None hypertension Pertinent Findings Denies edema 04/04/2012 None chest pain/pressure Location in the epigastric area 04/01/2012 None chest pain/pressure Quality sharp 04/01/2012 None chest pain/pressure Onset and Resolution sudden in onset 04/01/2012 lasted approx 30 min chest pain/pressure Pertinent Findings palpitations 04/01/2012 states also had episode of palpitations. has held her antibiotic and steriods and naprosyn chest pain/pressure Limitation on Activities does not limit activities 04/01/2012 None chest pain/pressure Scale of 1(mild) to 10(severe) 3 04/01/2012 None chest pain/pressure Significant Medications other medication (doxycycline and naprosyn) 04/01/2012 None chest pain/pressure Triggers smoking 04/01/2012 None chest pain/pressure Exacerbating Factors movement 04/01/2012 None chest pain/pressure Exacerbating Factors medication 04/01/2012 None rash Location-Extremities on the left upper arm 03/20/2012 None rash Location-Extremities on the right upper arm 03/20/2012 None rash Location-Trunk on the right upper back 03/20/2012 None rash Quality acute 03/2012 None rash Onset and Resolution ongoing 03/20/2012 None rash Onset of Symptom 3 days ago 03/20/2012 None rash Limitation on Activities moderately limits activities 03/20/2012 States she just doesn't feel well. rash Location-Trunk on the left upper back 03/20/2012 States she had shingles in August-saw Dr Judge at that time. States she thinks they are coming back- feels a stinging sensation to her arms and back. States her face feels itchy as well. Took valacyclovir from Aug-Nov . headache Location diffusely 03/20/2012 None headache Quality acute 03/20/2012 None headache Onset and Resolution ongoing 03/20/2012 None headache Onset of Symptom 3-4 days ago 03/20/2012 None headache Frequency of Episodes increasing 03/20/2012 None arm pain Location left upper arm 03/20/2012 None arm pain Location right upper arm 03/20/2012 None arm pain Quality tingling 03/20/2012 None arm pain Quality worsening 03/20/2012 None arm pain Onset of Symptom 3 days ago 03/20/2012 None arm pain Severity moderate 03/20/2012 States she feels itchy and tingling to bilateral upper arms, chest, upper back, and face Advance Directives No Advance Directive data Encounters Encounter Performer Location Codes Date ([id number]) 23859 EST. 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 PATIENT, LEVEL III Diagnosis: Essential (primary) hypertension[ICD10: I10] Tessa George MD [facility] CPT-4: 48135 12/16/2018 51093 EST. PATIENT, LEVEL III Diagnosis: Other urticaria[ICD10: L50.8] Diagnosis: Adverse effect of unspecified drugs, medicaments and biological substances, initial encounter[ICD10: T50.905A] Brooke George MD [facility] CPT-4: 30137 12/06/2018 ([id number]) 46907 EST. PATIENT, LEVEL IV Diagnosis: Essential (primary) hypertension[ICD10: I10] Diagnosis: Dysuria[ICD10: R30.0] Diagnosis: Personal history of urinary (tract) infections[ICD10: Z87.440] Tessa George MD [facility] CPT-4: 74144 11/25/2018 ([id number]) 09058 EST. PATIENT, LEVEL III Diagnosis: Diverticulitis of large intestine without perforation or abscess without bleeding[ICD10: K57.32] Tessa George MD [facility] CPT-4: 97301 10/14/2018 ([id number]) 96804 EST. PATIENT, LEVEL IV Diagnosis: Essential (primary) hypertension[ICD10: I10] Diagnosis: Tobacco use[ICD10: Z72.0] Diagnosis: Functional diarrhea[ICD10: K59.1] Tessa George MD [facility] CPT-4: 02990 05/21/2018 ([id number]) 99330 EST. PATIENT, LEVEL III Diagnosis: Insect bite (nonvenomous) of abdominal wall, initial encounter[ICD10 : S30.861A] Tessa George MD [facility] CPT-4: 43862 ([id number]) 29058 EST. PATIENT, LEVEL IV Diagnosis: Essential (primary) hypertension[ICD10: I10] Diagnosis: Tobacco use[ICD10: Z72.0] Diagnosis: Functional diarrhea[ICD10: K59.1] Tessa George MD, [facility] CPT-4: 57881 01/22/2018 ([id number]) 71834 EST. PATIENT, LEVEL III Diagnosis: Essential (primary) hypertension[ICD10: I10] Diagnosis: Functional diarrhea[ICD10: K59.1] Tessa George MD, [facility] CPT-4: 09013 10/22/2017 58162 EST. PATIENT, LEVEL III Diagnosis: Rash and other nonspecific skin eruption[ICD10: R21] Brooke George MD, [facility] CPT-4: 03952 08/15/2017 ([id number]) 10034 EST. PATIENT, LEVEL IV Diagnosis: Essential (primary) hypertension[ICD10: I10] Diagnosis: Functional diarrhea[ICD10: K59.1] Diagnosis: Epigastric pain[ICD10: R10.13] Tessa George MD, [facility] CPT- 4: 71220 06/19/2017 ([id number]) 95754 EST. PATIENT, LEVEL IV Diagnosis: Essential (primary) hypertension[ICD10: I10] Diagnosis: Epigastric pain[ICD10: R10.13] Tessa George MD, [facility] CPT- 4: 82553 02/13/2017 07195 EST. PATIENT, LEVEL IV Diagnosis: Low back pain[ICD10: M54.5] Brooke George MD, [facility] CPT-4 : 22815 02/05/2017 04444 EST. PATIENT, LEVEL IV Diagnosis: Dysuria[ICD10: R30.0] Diagnosis: Low back pain[ICD10: M54.5] Brooke George MD, [facility] CPT-4 : 89407 02/02/2017 ([id number]) 84356 EST. PATIENT, LEVEL IV Diagnosis: Essential (primary) hypertension[ICD10: I10] Diagnosis: Dysuria[ICD10: R30.0] Diagnosis: Tobacco use[ICD10: Z72.0] Tessa George MD, [facility] CPT-4: 15178 12/12/2016 81050 EST. PATIENT, LEVEL IV Diagnosis: Other acute sinusitis[ICD10: J01.80] Diagnosis: Other allergic rhinitis[ICD10: J30.89] Brooke George MD, [facility] CPT-4: 91545 06/21/2016 ([id number]) 74000 EST. PATIENT, LEVEL III Diagnosis: Essential (primary) hypertension[ICD10: I10] Diagnosis: Major depressive disorder, single episode, unspecified[ICD10: F32.9] Tessa George MD, [facility] CPT-4: 70613 05/24/2016 ([id number]) 24032 EST. PATIENT, LEVEL IV Diagnosis: Essential (primary) hypertension[ICD10: I10] Diagnosis: Major depressive disorder, single episode, unspecified[ICD10: F32.9] Diagnosis: Tobacco use[ICD10: Z72.0] Tessa George MD, [facility] CPT-4: 37375 02/02/2016 ([id number]) 82861 EST. PATIENT, LEVEL IV Diagnosis: Essential (primary) hypertension[ICD10: I10] Diagnosis: Polymyalgia rheumatica[ICD10: M35.3] Diagnosis: Major depressive disorder, single episode, unspecified[ICD10: F32.9] Tessa George MD, [facility] CPT-4: 12925 11/03/2015 ([id number]) Miscellaneous no charge Diagnosis: Hyperpigmented skin lesion[ICD9: 709.00] Tessa George MD, [facility] CPT-4: 19223 02/12/2015 ([id number]) 94330 EST. PATIENT, LEVEL IV Diagnosis: ESSENTIAL HYPERTENSION[ICD9: 401.9] Diagnosis: DEPRESSIVE DISORDER NEC[ICD9: 311] Diagnosis: POLYMYALGIA RHEUMATICA[ICD9: 725] Tessa George MD, [facility] CPT-4: 99874 01/25/2015 ([id number]) 66966 EST. PATIENT, LEVEL IV Diagnosis: ESSENTIAL HYPERTENSION[ICD9: 401.9] Diagnosis: Polymyalgia rheumatica syndrome[ICD9: 725] Diagnosis: Smoking[ICD9: 305.1] Tessa George MD, [facility] CPT-4: 43455 11/26/2014 ([id number]) 82232 EST. PATIENT, LEVEL III Diagnosis: ESSENTIAL HYPERTENSION[ICD9: 401.9] Diagnosis: Sacroiliitis[ICD9: 720.2] Tessa George MD, [facility] CPT-4: 11995 09/15/2014 ([id number]) 24945 EST. PATIENT, LEVEL III Diagnosis: Hip pain[ICD9: 719.45] Diagnosis: Sacroiliac pain[ICD9: 724.6] Tessa George MD, [facility] CPT- 4: 29162 08/13/2014 ([id number]) 95147 EST. PATIENT, LEVEL III Diagnosis: ACUTE SINUSITIS[ICD9: 461.9] Diagnosis: ALLERGIC RHINITIS[ICD9: 477.9] Aviva George MD, [facility] CPT-4: 98625 08/03/2014 ([id number]) 49936 EST. PATIENT, LEVEL IV Diagnosis: ESSENTIAL HYPERTENSION[ICD9: 401.9] Diagnosis: DEPRESSIVE DISORDER NEC[ICD9: 311] Diagnosis: POLYMYALGIA RHEUMATICA[ICD9: 725] Tessa George MD, [facility] CPT-4: 52632 07/23/2014 ([id number]) 90900 EST. PATIENT, LEVEL IV Diagnosis: ESSENTIAL HYPERTENSION[ICD9: 401.9] Diagnosis: DEPRESSIVE DISORDER NEC[ICD9: 311] Diagnosis: POLYMYALGIA RHEUMATICA[ICD9: 725] Diagnosis: VACCIN FOR INFLUENZA[ICD10: Z23] Tessa George MD, [facility] CPT-4: 80672 06/29/2014 ([id number]) 65867 EST. PATIENT, LEVEL III Diagnosis: ACUTE MAXILLARY SINUSITIS[ICD9: 461.0] Diagnosis: BPPV (benign paroxysmal positional vertigo)[ICD9: 386.11] Aviva George MD , [facility] CPT-4: 94387 04/27/2014 ([id number]) 88896 EST. PATIENT, LEVEL III Diagnosis: ESSENTIAL HYPERTENSION[SNOMED: 50356836] Diagnosis: Fatigue[ICD9: 780.79] Diagnosis: DEPRESSIVE DISORDER NEC[ICD9: 311] Tessa George MD, [facility] CPT-4: 80151 01/28/2014 ([id number]) 47573 EST. PATIENT, LEVEL III Diagnosis: ESSENTIAL HYPERTENSION[SNOMED: 46929205] Diagnosis: Blurry vision, bilateral[ICD9: 368.8] [facility] CPT-4: 11929 01/05/2014 ([id number]) 34147 EST. PATIENT, LEVEL IV Diagnosis: POLYMYALGIA RHEUMATICA[ICD9: 725] Diagnosis: PAIN IN LIMB[ICD9: 729.5] Diagnosis: ESSENTIAL HYPERTENSION[SNOMED: 47285067] Tessa George MD, [facility] CPT-4: 07465 11/17/2013 ([id number]) 91126 EST. PATIENT, LEVEL III Diagnosis: Polymyalgia rheumatica syndrome[ICD9: 725] Tessa George MD, [facility] CPT-4: 99630 08/27/2013 ([id number]) 87539 EST. PATIENT, LEVEL III Diagnosis: ESSENTIAL HYPERTENSION[SNOMED: 33749569] Diagnosis: Fatigue[ICD9: 780.79] Tessa George MD [facility] CPT-4: 05892 08/21/2013 ([id number]) 49303 EST. PATIENT, LEVEL III Diagnosis: Urinary tract infection[ICD9: 599.0] Diagnosis: ESSENTIAL HYPERTENSION[SNOMED: 67761381] Aviva George MD, [facility] CPT-4: 21533 08/18/2013 ([id number]) 70614 EST. PATIENT, LEVEL IV Diagnosis: ESSENTIAL HYPERTENSION[SNOMED: 05410200] Diagnosis: HEMATURIA NOS[ICD9: 599.70] Diagnosis: CHRONIC INTERSTITIAL CYSTITIS[ICD9: 595.1] Tessa George MD, [facility] CPT-4: 00826 04/29/2013 ([id number]) 69584 EST. PATIENT, LEVEL III Diagnosis: Recurrent urinary tract infection[ICD9: 599.0] Diagnosis: DYSURIA[ICD9: 788.1] Tessa George MD, [facility] CPT-4: 11788 03/24/2013 ([id number]) 38304 EST. PATIENT, LEVEL IV Diagnosis: ESSENTIAL HYPERTENSION[SNOMED: 58145538] Diagnosis: HYPERLIPIDEMIA[ICD9: 272.4] Diagnosis: Irritated nevus of neck[ICD9: 216.4] Tessa George MD, [facility] CPT-4: 97242 02/06/2013 ([id number]) 57605 EST. PATIENT, LEVEL III Diagnosis: ACUTE MAXILLARY SINUSITIS[ICD9: 461.0] Diagnosis: ACUTE URI[ICD9: 465.9] Diagnosis: COUGH[ICD9: 786.2] Tessa George MD [facility] CPT-4: 79239 11/05/2012 ([id number]) 26118 EST. PATIENT, LEVEL III Diagnosis: ESSENTIAL HYPERTENSION[SNOMED: 34415100] Diagnosis: ILL-DEFINE CONDITION NEC[ICD9: 799.89] Tessa George MD [facility] CPT-4: 15101 10/31/2012 ([id number]) 38524 EST. PATIENT, LEVEL III Diagnosis: ESSENTIAL HYPERTENSION[SNOMED: 95244372] Tessa George MD [facility] CPT-4: 26057 09/03/2012 ([id number]) 70272 EST. PATIENT, LEVEL III Diagnosis: UTI[ICD9: 599.0] Diagnosis: Microscopic hematuria[ICD9: 599.72] Diagnosis: ESSENTIAL HYPERTENSION[SNOMED: 23004981] Tessa George MD [facility] CPT-4: 87488 08/20/2012 ([id number]) 03306 EST. PATIENT, LEVEL IV Diagnosis: Constipation - functional[ICD9: 564.09] Diagnosis: Abdominal pain[ICD9: 789.00] Tessa George MD [facility] CPT- 4: 68422 07/16/2012 ([id number]) 86552 EST. PATIENT, LEVEL IV Diagnosis: ESSENTIAL HYPERTENSION[SNOMED: 33332055] Diagnosis: Fatigue[ICD9: 780.79] Diagnosis: Constipation - functional[ICD9: 564.09] Tessa George MD [facility] CPT-4: 57682 07/01/2012 ([id number]) 83634 EST. PATIENT, LEVEL III Diagnosis: ESSENTIAL HYPERTENSION[SNOMED: 17890928] Diagnosis: HEADACHE[ICD9: 784.0] Tessa George MD [facility] CPT-4: 28700 05/08/2012 14154 EST. PATIENT, LEVEL IV Diagnosis: Urinary tract infection[ICD9: 599.0] Diagnosis: ESSENTIAL HYPERTENSION[SNOMED: 50420226] Diagnosis: Fatigue[ICD9: 780.79] Tessa George MD [facility] CPT-4: 80508 04/19/2012 ([id number] 73199 EST. PATIENT, LEVEL IV Diagnosis: ESSENTIAL HYPERTENSION[SNOMED: 21105915] Diagnosis: Mouth dryness[ICD9: 527.7] Diagnosis: HEADACHE[ICD9: 784.0] Diagnosis: CERVICALGIA[ICD9: 723.1] Tessa George MD [facility] CPT-4: 13462 04/15/2012 ([id number] EST. PATIENT, LEVEL IV Diagnosis: Urinary tract infection[ICD9: 599.0] Diagnosis: Generally unwell[ICD9: 799.89] Diagnosis: ESSENTIAL HYPERTENSION[SNOMED: 99379526] Diagnosis: MYALGIA AND MYOSITIS[ICD9: 729.1] Tessa George MD [facility] CPT-4: 77215 04/04/2012 ([id number] EST. PATIENT, LEVEL IV Diagnosis: ESSENTIAL HYPERTENSION[SNOMED: 85177939] Diagnosis: Unsteady gait[ICD9: 781.2] Diagnosis: Neck pain[ICD9: 723.1] Tessa George MD [facility] CPT-4: 02206 04/01/2012 ([id number]) Patient admitted to the hospital from clinic (NO CHARGE) Diagnosis: Pericardial rub[ICD9: 785.3] Diagnosis: ESSENTIAL HYPERTENSION[SNOMED: 21816306] Diagnosis: HEADACHE[ICD9: 784.0] Diagnosis: Arm pain[ICD9: 729.5] Aviva George MD, [facility] CPT-4: 47504J 03/20/2012 Plan of Care Planned Activity Notes Codes Status Date Visit Plan: Hypertension - uncontrolled - the patient's medications have been modified as documented in the visit note. The patient has been counseled to cut back on salt in diet for a no added salt diet, low fat diet, start an exercise program with low weight bearing exercises and higher aerobic activity for heart health. The patient is to check blood pressure readings as an outpatient and either fax, call, or email the readings to the office next week for practitioner to review. The pt is to call for acute concerns. increase lisinopril to 20mg twice daily Costochondritis - pt to use anti-inflammatories as directed.. Pt is to call if the chest pain does not improve. Naproxen 500mg bid. Tobacco abuse - chronic condition for this patient. Patient has been counseled about need to stop smoking due to the negative health affects. Pt has vocalized understanding and states that they will consider smoking cessation, but the pt is not yet ready to use medication to assist cessation. 01/13/2019 Patient Education: Patient Medication Summary Completed 01/13/2019 Patient Education: Hypertension Completed 01/13/2019 Patient Education: Smoking and Tobacco Addiction Completed 01/13/2019 Visit Plan: Hypertension - uncontrolled - the patient's medications have been modified as documented in the visit note. The patient has been counseled to cut back on salt in diet for a no added salt diet, low fat diet, start an exercise program with low weight bearing exercises and higher aerobic activity for heart health. The patient is to check blood pressure readings as an outpatient and either fax, call, or email the readings to the office next week for practitioner to review. The pt is to call for acute concerns. take the metoprolol at 7am, 7pm and lisinopril 10AM and 10PM. 12/16/2018 Appointment: Tessa George [facility]Ptel[facility] (15 min) Moderate 12/16/2018 Patient Education: Patient Medication Summary Completed 12/16/2018 Patient Education: Hypertension Completed 12/16/2018 Visit Plan: Allergic Reaction/Hives - discussed diagnosis with patient, need to avoid allergen, and when/if the patient should go to the emergency room. Pt was instructed to take benadryl 25mg q 6 hours x 48 hours, and pepcid 20mg bid x 48 hours, pt also given RX for prednisone taper. 12/06/2018 Appointment: Bro[facility] Doming[phone] (15 min) Moderate 12/06/2018 Patient Education: Patient Medication Summary Completed 12/06/2018 Visit Plan: Hypertension - well controlled - continue with current medications, continue with no added salt diet. Pt has been encouraged to exercise daily. The pt has been advised to call the office if there are any acute concerns about change in blood pressure readings at home. UTI - pt with positive urinalysis - culture sent if appropriate. Antibiotic electronically prescribed to pt's pharmacy of choice. Pt to call if symptoms do not improve. 11/25/2018 Appointment: Tessa George WPtel: [phone] [facility] (15 min) Moderate 11/25/2018 Patient Education: Patient Medication Summary Completed 11/25/2018 Patient Education: Hypertension Completed 11/25/2018 Visit Plan: Diverticulitis - rx for antibiotic sent to pt' s pharmacy - pt advised to avoid seeds, nuts, popcorn, or any other food which has been proven to upset the pt's stomach. accuflora - 14billion unit - take while on antibiotics call if you are not feeling any better by sunday10/14/2018 Appointment: Tessa George WPtel: [phone] [facility] (15 min) Moderate 10/14/2018 Patient Education: Patient Medication Summary Completed 10/14/2018 Appointment: Tesas George WPtel: [phone] [facility] (15 min) Moderate 09/24/2018 Visit Plan: Medicare Exam - today we discussed the patients past history, immunizations, preventative exams/evaluations - colonoscopy, fecal occult blood testing, routine labs for renal function, glucose, cholesterol, osteoporosis evaluations, cardiovascular testing and cancer screenings. We have also discussed mental health and the signs/symptoms of depression. The patient was advised of home safety evaluations and the need to make sure that as the aging process continues, we need to be aware of different ways to make the home a safer place to reside. The patient has also been counseled that exercise is necessary - and of utmost importance as we age to help decrease fall risk and to maintain independece in the home. Today we discussed the need for the patient to create paperwork for Advanced directives as well as for the patient to provide this office with a copy of her DOPA paperwork for health care surrogate. 09/02/2018 Appointment: Brooke Dominguez WPtel: [phone] [facility] MCR - Annual Wellness Visit 09/02/2018 Patient Education: Patient Medication Summary Completed 09/02/2018 Appointment: Injection 06/18/2018 Patient Education: Patient Medication Summary Completed 06/18/2018 Visit Plan: Hypertension - well controlled - continue with current medications, continue with no added salt diet. Pt has been encouraged to exercise daily. The pt has been advised to call the office if there are any acute concerns about change in blood pressure readings at home. Reflux - intermittent - decrease Pepcid use down to lowest dose possible. Diarrhea - improved - monitor symptoms. 05/21/2018 Appointment: Tessa George WPtel: [facility] (15 min) Moderate 05/21/2018 Patient Education: Patient Medication Summary Completed 05/21/2018 Visit Plan: tick bite - rx for doxycycline - and use benadryl cream on the tick bites to help decrease itching 03/04/2018 Appointment: Tessa George WPtel: [facility] (15 min) Moderate 03/04/2018 Patient Education: Patient Medication Summary Completed 03/04/2018 Visit Plan: Hypertension - well controlled - continue with current medications, continue with no added salt diet. Pt has been encouraged to exercise daily. The pt has been advised to call the office if there are any acute concerns about change in blood pressure readings at home. Functional diarrhea - improved - continue with PPI and dietary restrictions. tobacco use - again recommended pt to stop smoking - discussed smoking cessation strategies. 01/22/2018 Appointment: Tessa George WPtel: [facility] (15 min) Moderate 01/22/2018 Patient Education: Patient Medication Summary Completed 01/22/2018 Visit Plan: Hypertension - well controlled - continue with current medications, continue with no added salt diet. Pt has been encouraged to exercise daily. The pt has been advised to call the office if there are any acute concerns about change in blood pressure readings at home. Abdominal pain - intermittent diarrhea - recommended bland diet and transition to liquid diet if symptoms of abdominal pain has not improved. Pt to call at the end of the week if symptoms are not improved and she will need to have Flagyl if symptoms are not resolved. 10/22/2017 Appointment: Tessa George [facility]Ptel[phone] [facility] (15 min) Moderate 10/22/2017 Patient Education: Patient Medication Summary Completed 10/22/2017 Visit Plan: Medicare Exam - today we discussed the patients past history, immunizations, preventative exams/evaluations - colonoscopy, fecal occult blood testing, routine labs for renal function, glucose, cholesterol, osteoporosis evaluations, cardiovascular testing and cancer screenings. We have also discussed mental health and the signs/symptoms of depression. The patient was advised of home safety evaluations and the need to make sure that as the aging process continues, we need to be aware of different ways to make the home a safer place to reside. The patient has also been counseled that exercise is necessary - and of utmost importance as we age to help decrease fall risk and to maintain independece in the home. Today we discussed the need for the patient to create paperwork for Advanced directives as well as for the patient to provide this office with a copy of her DOPA paperwork for health care surrogate. 08/22/2017 Patient Education: Patient Medication Summary Completed 08/22/2017 Patient Education: Smoking and Tobacco Addiction Completed 08/22/2017 Visit Plan: Allergic Reaction/Hives - discussed diagnosis with patient, need to avoid allergen, and when/if the patient should go to the emergency room. Pt was instructed to take benadryl 25mg q 6 hours x 48 hours, and pepcid 20mg bid x 48 hours, pt also given RX for prednisone taper. 08/15/2017 Appointment: Brooke Dominguez WPtel: [facility] (30 min) Complex 08/15/2017 Patient Education: Patient Medication Summary Completed 08/15/2017 Patient Education: Smoking and Tobacco Addiction Completed 08/15/2017 Visit Plan: Abdominal pain - and Diarrhea - ct of abdomen and pelvis if the Questran does not help the loose stools and abdominal pain. Hypertension - well controlled - continue with current medications, continue with no added salt diet. Pt has been encouraged to exercise daily. The pt has been advised to call the office if there are any acute concerns about change in blood pressure readings at home. 06/19/2017 Appointment: Tessa George WPtel: [address] [place], [place] [id number] (15 min) Moderate 06/19/2017 Patient Education: Patient Medication Summary Completed 06/19/2017 Patient Education: Smoking and Tobacco Addiction Completed 06/19/2017 Patient Education: Hypertension Completed 06/19/2017 Visit Plan: Hypertension - well controlled - continue with current medications, continue with no added salt diet. Pt has been encouraged to exercise daily. The pt has been advised to call the office if there are any acute concerns about change in blood pressure readings at home. Epigastric discomfort - hold the flexeril start on the LEVSIN - use it at least one time a day - use up to four times daily if needed for spasms of the abdomen 02/13/2017 Appointment: Tessa George WPtel: [facility] (15 min) Moderate 02/13/2017 Patient Education: Patient Medication Summary Completed 02/13/2017 Patient Education: Smoking and Tobacco Addiction Completed 02/13/2017 Patient Education: Hypertension Completed 02/13/2017 Visit Plan: Ongoing flank/low back pain - will check x-ray - The pt is to use prn antiinflammatories to manage acute pain. The patient is to call the office if the pain is worsening or does not improve. 02/05/2017 Appointment: Brooke Dominguez WPtel: [facility] [place] (15 min) Moderate 02/05/2017 Patient Education: Patient Medication Summary Completed 02/05/2017 Patient Education: Smoking and Tobacco Addiction Completed 02/05/2017 Visit Plan: UTI - pt with positive urinalysis - culture sent if appropriate. Antibiotic electronically prescribed to pt's pharmacy of choice. Pt to call if symptoms do not improve. Low back pain- the patient was instructed in appropriate posture, need for weight loss to alleviate abdominal obesity that is worsening the patient's back pain.. The pt is to use prn antiinflammatories to manage acute pain. The patient is to call the office if the pain is worsening or does not improve. 02/02/2017 Appointment: Brooke Dominguez WPtel: [facility] [place] (15 min) Moderate 02/02/2017 Patient Education: Patient Medication Summary Completed 02/02/2017 Patient Education: Smoking and Tobacco Addiction Completed 02/02/2017 Care Plan: Urine Culture Pending 02/02/2017 Visit Plan: Hypertension - well controlled - continue with current medications, continue with no added salt diet. Pt has been encouraged to exercise daily. The pt has been advised to call the office if there are any acute concerns about change in blood pressure readings at home. Dysuria - check urine Tobaccoism - continue to attempt to cut back on tobacco intake with goal of stopping. 12/12/2016 Appointment: Tessa George [facility]Ptel: [phone] [facility] (15 min) Moderate 12/12/2016 Patient Education: Patient Medication Summary Completed 12/12/2016 Patient Education: Smoking and Tobacco Addiction Completed 12/12/2016 Patient Education: Hypertension Completed 12/12/2016 Appointment: Injection 07/19/2016 Patient Education: Patient Medication Summary Completed 07/19/2016 Patient Education: Smoking and Tobacco Addiction Completed 07/19/2016 Visit Plan: Sinusitis - Pt has acute infection - pain in face, maxillary region, Pt informed to use decongestant, RX given to patient, sinus rinses also recommended. Call if symptoms do not show improvement. Allergies - chronic - recommended pt to use allergy medication as prescribed. Pt has been counseled as to the appropriate use of the medication. Pt to call if allergy symptoms are not controlled with the medication. If using nasal spray , instructions as follows: Nasal spray- use twice daily, one spray per nostril twice daily, after 30 minutes, rinse out nose with saline spray.. Use opposite hand per nostril to spray in the nasal steroid allergy spray. 06/21/2016 Appointment: Aviva Patton WPtel: [facility] [place] (15 min) Moderate 06/21/2016 Patient Education: Patient Medication Summary Completed 06/21/2016 Patient Education: Smoking and Tobacco Addiction Completed 06/21/2016 Visit Plan: Hypertension - well controlled - continue with current medications, continue with no added salt diet. Pt has been encouraged to exercise daily. The pt has been advised to call the office if there are any acute concerns about change in blood pressure readings at home. Chronic Depression and anxiety - the pt has symptoms of chronic anxiety and depression that have been fairly well controlled since the last office visit. The pt has expected periods of exacerbation with abatement of the symptoms with change in situational exposure. No change in current medications. 05/24/2016 Patient Education: Patient Medication Summary Completed 05/24/2016 Patient Education: Smoking and Tobacco Addiction Completed 05/24/2016 Visit Plan: Hypertension - well controlled - continue with current medications, continue with no added salt diet. Pt has been encouraged to exercise daily. The pt has been advised to call the office if there are any acute concerns about change in blood pressure readings at home. Chronic Depression and anxiety - the pt has symptoms of chronic anxiety and depression that have been fairly well controlled since the last office visit. The pt has expected periods of exacerbation with abatement of the symptoms with change in situational exposure. No change in current medications. Tobacco use - the pt states that she is cutting back on her smoking - self-limiting her number of cigarettes daily - she has cut back from 1ppd to 1/2 ppd. 02/02/2016 Patient Education: Patient Medication Summary Completed 02/02/2016 Patient Education: Smoking and Tobacco Addiction Completed 02/02/2016 Visit Plan: Hypertension - well controlled - continue with current medications, continue with no added salt diet. Pt has been encouraged to exercise daily. The pt has been advised to call the office if there are any acute concerns about change in blood pressure readings at home. Chronic Depression and anxiety - the pt has symptoms of chronic anxiety and depression that have been fairly well controlled since the last office visit. The pt has expected periods of exacerbation with abatement of the symptoms with change in situational exposure. No change in current medications. Polymyalgia - continue with cymbalta 11/03/2015 Patient Education: Patient Medication Summary Completed 11/03/2015 Appointment: Injection 08/25/2015 Patient Education: Patient Medication Summary Completed 08/25/2015 Patient Education: Patient Medication Summary Completed 02/12/2015 Visit Plan: Skin lesion biopsied - the lesion is likely a melanoma - I have discussed the fact that the entire lesion was not excised due to significant extension of the lesion. She is aware that the lesion is most likely a melanoma and is aware of the need for further excision of the lesion by surgeon. We will remove the sutures in 2 weeks. 02/02/2015 Appointment: Tessa George WPtel: [phone] [facility] [place] [facility] Procedure 02/02/2015 Patient Education: Patient Medication Summary Completed 02/02/2015 Visit Plan: Hypertension - uncontrolled - the patient's medications have been modified as documented in the visit note. The patient has been counseled to cut back on salt in diet for a no added salt diet, low fat diet, start an exercise program with low weight bearing exercises and higher aerobic activity for heart health. The patient is to check blood pressure readings as an outpatient and either fax, call, or email the readings to the office next week for practitioner to review. The pt is to call for acute concerns. Pt instructed to increase her toprol to 25mg two pills daily - call with pressures in two weeks - if pressures are improved, will call out rx for toprol 50mg daily. PMR and depression and Joint pain- continue with cymbalta. RX for joint pain in hand for voltaren gel. 01/25/2015 Patient Education: Patient Medication Summary Completed 01/25/2015 Patient Education: Hypertension Completed 01/25/2015 Visit Plan: Hypertension - not quite optimally controlled - continue with current medications, continue with no added salt diet. Pt has been encouraged to exercise daily. The pt has been advised to call the office if there are any acute concerns about change in blood pressure readings at home. Check Renal Doppler. PMR - pt to continue with cymbalta for her depression and polymyalgia symptoms. Pt has history of tobaccoism - I have recommended that she have a screening CT scan of her chest has she has extensive smoking history and currently is an every day smoker in a home with another smoker. 11/26/2014 Appointment: Tessa George WPtel: [phone] [facility] Follow up 11/26/2014 Patient Education: Patient Medication Summary Completed 11/26/2014 Visit Plan: Sacroiliitis - back exercises discussed with the patient, pt to continue with anti-inflammatories. Pt is to call if the symptoms do not improve or if they worsen. Hypertension - well controlled - continue with current medications, continue with no added salt diet. Pt has been encouraged to exercise daily. The pt has been advised to call the office if there are any acute concerns about change in blood pressure readings at home. 09/15/2014 Appointment: Tessa George WPtel: [facility] [place] [phone] Follow up 09/15/2014 Patient Education: Patient Medication Summary Completed 09/15/2014 Visit Plan: Hip pain - stat xray right hip - antiinflammatories. Pt to use heat to hip, monitor symptoms - and pt to call if not improving, pt to be called with hip xray report. 08/13/2014 Appointment: Tessa George WPtel: [facility] Sick 08/13/2014 Patient Education: Patient Medication Summary Completed 08/13/2014 Visit Plan: Sinusitis - Pt has acute infection - pain in face, maxillary region, Pt informed to use decongestant, RX given to patient, sinus rinses also recommended. Call if symptoms do not show improvement. Allergies - chronic - recommended pt to use allergy medication as prescribed. Pt has been counseled as to the appropriate use of the medication. Pt to call if allergy symptoms are not controlled with the medication. Patient does not want to try nasal spray so I have recommended that she start connor or zyrtec daily for allergy/sinus symptoms. If using nasal spray, instructions as follows : Nasal spray- use twice daily, one spray per nostril twice daily, after 30 minutes, rinse out nose with saline spray.. Use opposite hand per nostril to spray in the nasal steroid allergy spray. 08/03/2014 Patient Education: Patient Medication Summary Completed 08/03/2014 Visit Plan: Hypertension - well controlled - continue with current medications, continue with no added salt diet. Pt has been encouraged to exercise daily. The pt has been advised to call the office if there are any acute concerns about change in blood pressure readings at home. Depression and Joint pain both improved with pt's increase in cymbalta - pt to fill new RX for cymbalta 60mg daily. 07/23/2014 Appointment: Tessa George WPtel: [facility] Follow up 07/23/2014 Patient Education: Patient Medication Summary Completed 07/23/2014 Patient Education: Hypertension Completed 07/23/2014 Visit Plan: Polymyalgia Rheumatica - increase RX for cymbalta. Hypertension - well controlled - continue with current medications, continue with no added salt diet. Pt has been encouraged to exercise daily. The pt has been advised to call the office if there are any acute concerns about change in blood pressure readings at home. flu shot today 06/29/2014 Appointment: Tessa George WPtel: [phone] [facility] Follow up 06/29/2014 Patient Education: Patient Medication Summary Completed 06/29/2014 Patient Education: Hypertension Completed 06/29/2014 Visit Plan: Sinusitis - Pt has acute infection - pain in face, maxillary region, Pt informed to use decongestant, RX given to patient, sinus rinses also recommended. Call if symptoms do not show improvement. BPPV - Benign Paroxysmal Positional Vertigo - discussed diagnosis with the patient, offered the pt the appropriate additional information in hand-out. Pt instructed in home exercises to help alleviate and prevent future recurrent episodes of vertigo. Pt informed that if symptoms worsen, call the office for further instructions/medication interventions. 04/27/2014 Appointment: Other 04/27/2014 Patient Education: Patient Medication Summary Completed 04/27/2014 Visit Plan: Hypertension - well controlled - continue with current medications, continue with no added salt diet. Pt has been encouraged to exercise daily. The pt has been advised to call the office if there are any acute concerns about change in blood pressure readings at home. Depression - uncontrolled - Pt has been counseled about the diagnosis of depression, the potential causes, and risks associated with the diagnosis. The pt denies suicidal ideation, or plans. The patient has been counseled about treatment options, and understands the risks associated with treatment of depression, as well as the risks associated with NOT treating the depression. I believe the pt will benefit from medical intervention and an antidepressant has been appropriately prescribed for this patient. Pt started on cymbalta. 01/28/2014 Appointment: Tessa George WPtel: [phone] [facility] Follow up 01/28/2014 Patient Education: Patient Medication Summary Completed 01/28/2014 Patient Education: Hypertension Completed 01/28/2014 Visit Plan: Hypertension - well controlled - continue with current medications, continue with no added salt diet. Pt has been encouraged to exercise daily. The pt has been advised to call the office if there are any acute concerns about change in blood pressure readings at home. Recommended pt to contact Dr. Duncan - the plaquenil is bothering her eyes. I have recommended that pt see Dr. Benites. 01/05/2014 Appointment: Tessa George WPtel: [address] [place], [place] [phone] Follow up 01/05/2014 Patient Education: Patient Medication Summary Completed 01/05/2014 Patient Education: Hypertension Completed 01/05/2014 Appointment: Tessa George WPtel: [address] [place], [place] [phone] [place] Follow up 11/27/2013 Visit Plan: Hypertension - well controlled - continue with current medications, continue with no added salt diet. Pt has been encouraged to exercise daily. The pt has been advised to call the office if there are any acute concerns about change in blood pressure readings at home. PMR - referral to Dr. Duncan for eval of her Polymyalgia symptoms. Pt to take prn Aleve for pain 11/17/2013 Appointment: Tessa George WPtel: [address] [place], [place] [phone] [place] Other 11/17/2013 Patient Education: Patient Medication Summary Completed 11/17/2013 Patient Education: Hypertension Completed 11/17/2013 Appointment: Tessa George WPtel: [address] [place], [place] [phone] [place] Lab Draw 10/29/2013 Visit Plan: Polymyalgia Rheumatica - rx for steroids given to patient for short term treatment of symptoms. Pt is aware of potential increased risk of GI bleed, decrease in bone density, and increased risk of steroid induced diabetes. The patient is to take steroids with food, and call if they are concerned for any potential adverse side effects. 08/27/2013 Appointment: Tessa George WPtel: [facility] [place] Follow up 08/27/2013 Patient Education: Patient Medication Summary Completed 08/27/2013 Visit Plan: Hypertension - well controlled - continue with current medications, continue with no added salt diet. Pt has been encouraged to exercise daily. The pt has been advised to call the office if there are any acute concerns about change in blood pressure readings at home. Fatigue/malaise - discussed need to check labs - concern for potential arthralgia/myalgias. Will give RX after review of labs. 08/21/2013 Patient Education: Patient Medication Summary Completed 08/21/2013 Patient Education: Hypertension Completed 08/21/2013 Visit Plan: Hypertension - well controlled - continue with current medications, continue with no added salt diet. Pt has been encouraged to exercise daily. The pt has been advised to call the office if there are any acute concerns about change in blood pressure readings at home. UTI - pt with positive urinalysis - culture sent if appropriate. Antibiotic electronically prescribed to pt's pharmacy of choice. Pt to call if symptoms do not improve. 08/18/2013 Appointment: Aviva Patton WPtel: [phone] [phone] [place] Other 08/18/2013 Patient Education: Patient Medication Summary Completed 08/18/2013 Patient Education: Hypertension Completed 08/18/2013 Appointment: [phone] [place] Injection 07/31/2013 Patient Education: Patient Medication Summary Completed 07/31/2013 Appointment: Aviva Patton WPtel: [phone] [phone] [place] Injection 07/23/2013 Patient Education: Patient Medication Summary Completed 07/23/2013 Visit Plan: Hypertension - well controlled - continue with current medications, continue with no added salt diet. Pt has been encouraged to exercise daily. The pt has been advised to call the office if there are any acute concerns about change in blood pressure readings at home. Hematuria - symptoms of UTI - suspect interstitial cystitis - pt to start on amitriptylline - 10mg 1/2 to 1 pill at bedtime if needed for symptoms of dysuria. 04/29/2013 Appointment: [facility] [place] Follow up 04/29/2013 Patient Education: Patient Medication Summary Completed 04/29/2013 Patient Education: Hypertension Completed 04/29/2013 Appointment: Tessa George WPtel: [facility] Lab Draw 04/14/2013 Patient Education: Patient Medication Summary Completed 04/14/2013 Visit Plan: DYSURIA - WITH RECURRENT UTI - WILLGIVE ANTIBIOTIC AND REFER PT TO SEE DR. CHOW ABOUT RECTOCELE AND CYSTOCELE. 03/24/2013 Appointment: Tessa George WPtel: [facility] Other 03/24/2013 Patient Education: Patient Medication Summary Completed 03/24/2013 Visit Plan: Hypertension - well controlled - continue with current medications, continue with no added salt diet. Pt has been encouraged to exercise daily. The pt has been advised to call the office if there are any acute concerns about change in blood pressure readings at home. Hyperlipidemia - pt has been counseled about appropriate diet, exercise, and need for low fat food choices. I have discussed the need for the patient to take medications as prescribed. If the patient has negative side effects from the medication, they are to CALL the office and not abruptly discontinue the medication without discussion with a practicioner in the office. We will check labs in 3-6 months for follow up on the patient's chronic medical problem and to assure normal liver response to medications. Skin tags removed with shave biopsy and bases cauterized with silver nitrate. 02/06/2013 Appointment: Tessa George WPtel: [address] [place], [place] [phone] Follow up 02/06/2013 Patient Education: Patient Medication Summary Completed 02/06/2013 Patient Education: Hypertension Completed 02/06/2013 Visit Plan: Sinusitis - Pt has acute infection - pain in face, maxillary region, Pt informed to use decongestant, RX given to patient, sinus rinses also recommended. Call if symptoms do not show improvement. 11/05/2012 Appointment: Tessa George WPtel: [facility] Other 11/05/2012 Patient Education: Patient Medication Summary Completed 11/05/2012 Visit Plan: Hypertension - well controlled - continue with current medications, continue with no added salt diet. Pt has been encouraged to exercise daily. The pt has been advised to call the office if there are any acute concerns about change in blood pressure readings at home. Pericardia rub - chronic - pt to use naprosyn 250mg bid x 1 week then daily x 1 week then stop - if symptoms worsen or pt feels short of breath she is to call clinic. 10/31/2012 Appointment: Tessa George WPtel: [phone] [facility] Follow up 10/31/2012 Patient Education: Patient Medication Summary Completed 10/31/2012 Patient Education: Hypertension Completed 10/31/2012 Visit Plan: Hypertension - well controlled - continue with current medications, continue with no added salt diet. Pt has been encouraged to exercise daily. The pt has been advised to call the office if there are any acute concerns about change in blood pressure readings at home. UTI - pt with positive urinalysis - culture sent if appropriate. Antibiotic electronically prescribed to pt's pharmacy of choice. Pt to call if symptoms do not improve. Pt to have appt with Dr. Ordoñez 09/25/2012 Appointment: Tessa George WPtel: [phone] [facility] Follow up 09/25/2012 Patient Education: Patient Medication Summary Completed 09/25/2012 Patient Education: Hypertension Completed 09/25/2012 Visit Plan: Hypertension - well controlled - continue with current medications, continue with no added salt diet. Pt has been encouraged to exercise daily. The pt has been advised to call the office if there are any acute concerns about change in blood pressure readings at home. 09/03/2012 Appointment: [facility]Ptel[facility] [facility] Follow up 09/03/2012 Patient Education: Patient Medication Summary Completed 09/03/2012 Patient Education: High Blood Pressure: Essential Hypertension Completed 2011 Visit Plan: Urinary Tract Infection-discussed natural and expected course of this diagnosis and to alert me if symptoms do not follow expected course, or if any worse. UA positive for infection today in the office- plan to send for culture and will call patient with results. RX sent to patient' s pharmacy. Avoid tub baths, restrictive underwear, etc. Recommend patient start on probiotic while taking the antibiotic to prevent diarrhea. Patient verbalized understanding of plan. HTN-not well controlled at home-instructed patient to montior blood pressure and pulse at home and bring in 2-3 weeks for review. 08/20/2012 Appointment: Aviva Patton WPtel: [phone] [phone] Follow up 08/20/2012 Patient Education: Patient Medication Summary Completed 08/20/2012 Patient Education: High Blood Pressure: Essential Hypertension Completed 2011 Visit Plan: Constipation - uncontrolled - I have discussed with the patient the need for adequate fiber and water intake to facilitate soft , easily passed stools. The pt noted understanding of our conversation. I have given the patient a recipe for "power pudding" - equal parts, bran flakes, prune juice, and apple sauce. The pt is to call if symptoms not improved on this regimen. Obtain KUB today and proceed as indicated. If pain persists, recommend CT scan. Recommended pt to start on miralax 07/16/2012 Appointment: Aviva Patton WPtel: [phone] [phone] Sick 07/16/2012 Patient Education: Patient Medication Summary Completed 07/16/2012 Visit Plan: Hypertension - well controlled - continue with current medications, continue with no added salt diet. Pt has been encouraged to exercise daily. The pt has been advised to call the office if there are any acute concerns about change in blood pressure readings at home. Constipation - uncontrolled - I have discussed with the patient the need for adequate fiber and water intake to facilitate soft, easily passed stools. The pt noted understanding of our conversation. I have given the patient a recipe for "power pudding" - equal parts, bran flakes, prune juice, and apple sauce. The pt is to call if symptoms not improved on this regimen. Recommended pt to start kn benefiber 07/01/2012 Appointment: [facility]Ptel[facility] [facility] Follow up 07/01/2012 Patient Education: Patient Medication Summary Completed 07/01/2012 Patient Education: High Blood Pressure: Essential Hypertension Completed 2011 Visit Plan: Hypertension - well controlled - continue with current medications, continue with no added salt diet. Pt has been encouraged to exercise daily. The pt has been advised to call the office if there are any acute concerns about change in blood pressure readings at home. Headache - resolved - continue with current treatments. Tobaccoism - pt not interested in stopping. 05/08/2012 Appointment: Tessa George WPtel: [address] [facility] [facility] 05/08/2012 Patient Education: Patient Medication Summary Completed 05/08/2012 Patient Education: High Blood Pressure: Essential Hypertension Completed 2011 Visit Plan: UTI-UA in the office today shows moderate blood -plan to send for culture. Discussed natural and expected course of this diagnosis and need to alert me if symtpoms do not follow expected course, or if any worse. RX sent to patient's pharmacy. Hypertension - No medication changes today- The patient has been counseled to cut back on salt in diet for a no added salt diet, low fat diet, start an exercise program with low weight bearing exercises and higher aerobic activity for heart health. The patient is to check blood pressure readings as an outpatient and either fax, call, or email the readings to the office next week for practicioner to review. The pt is to call for acute concerns. 04/19/2012 Appointment: Aviva Patton [facility]Ptel: [phone] [place] [address] 04/19/2012 Patient Education: Patient Medication Summary Completed 04/19/2012 Patient Education: High Blood Pressure: Essential Hypertension Completed 2011 Visit Plan: Headache - Start on the Naprosyn at 1/2 pill up to three times a day, then if needed, can take up to a full pill twice daily. UTI prevention - Activia - yogurt Cultrelle or Lactobacillus, or moay colon health - probiotics that have the same properties as the activia , but more bacterial cultures, take the pills daily. Cranberry juice, wet wipes front to back - get wet wipes with aloe in them to help retain your natural moisture. Hypertension - improved - continue with the coreg. 04/15/2012 Appointment: Tessa George WPtel: [facility] Follow up 04/15/2012 Patient Education: Patient Medication Summary Completed 04/15/2012 Patient Education: High Blood Pressure: Essential Hypertension Completed 2011 Appointment: Tessa George WPtel: [facility] Lab Draw 04/08/2012 Visit Plan: UTI - pt with positive urinalysis - culture sent if appropriate. Antibiotic electronically prescribed to pt's pharmacy of choice. Pt to call if symptoms do not improve. Hypertension - well controlled - continue with current medications, continue with no added salt diet. Pt has been encouraged to exercise daily. The pt has been advised to call the office if there are any acute concerns about change in blood pressure readings at home. Headache - pt to take the toradol orally and call if her symptoms do not improve. Pt has been counseled about the need to take medication as directed by physician, or call if unable to tolerate the medication. 04/04/2012 Appointment: Tessa George WPtel: [facility] Other 04/04/2012 Patient Education: Patient Medication Summary Completed 04/04/2012 Patient Education: High Blood Pressure: Essential Hypertension Completed 2011 Visit Plan: STOP THE DOXYCYCLINE, START ON CIPROFLOXACIN 500 mg twice daily x 7 days.. on review of the hospital culture, a bacteria did grow from the urine, was treated withthe IV VANCOMYCIN, BUT I SUSPECT IT DIDNOT GET FULLY TREATED. An MRI AND CAROTID DOPPLER. Hypertension - uncontrolled - the patient's medications have been modified as documented in the visit note. The patient has been counseled to cut back on salt in diet for a no added salt diet, low fat diet, start an exercise program with low weight bearing exercises and higher aerobic activity for heart health. The patient is to check blood pressure readings as an outpatient and either fax, call, or email the readings to the office next week for practicioner to review. The pt is to call for acute concerns. Pt started on Coreg 3.125mg bid 04/01/2012 Appointment: Tessa George WPtel: [facility] Other 04/01/2012 Patient Education: Patient Medication Summary Completed 04/01/2012 Patient Education: High Blood Pressure: Essential Hypertension Completed 2011 Visit Plan: Pericardial gsp-VTB-Hcyyfbuv-arm pain-history of shingles-Dr. George in to evaluate patient-plan to admit for further work up and close monitoring. Plan to get labs STAT including a cardiac panel. A stat echo has also been ordered as well with cardiology consult. . 03/20/2012 Visit Plan: ADMIT FROM CLINIC TO HOSPITAL - PT IS ACUTELY ILL, REQUIRES HOSPITALIZATION. THE PATIENT HAS BEEN EVALUATED IN CLINIC AND THIS STANDS THE HOSPITAL HISTORY AND PHYSICAL EXAMINATION. THE PATIENT HAS BEEN SENT TO THE HOSPITAL WITH WRITTEN ORDERS FOR TREATMENT AND EVALUATION OF THE ACUTE ILLNESS. Pericardial sxl-NOK-Sasiskqk-arm pain-history of shingles- Dr. George in to evaluate patient-plan to admit for further work up and close monitoring. Plan to get labs STAT including a cardiac panel. A stat echo has also been ordered as well with cardiology consult. 03/20/2012 Appointment: Aviva Patton WPtel: [address] [place], [place] [phone] [place] Other 03/20/2012 Patient Education: Patient Medication Summary Completed 03/20/2012 Patient Education: High Blood Pressure: Essential Hypertension Completed 2011 Appointment: Aviva Patton WPtel: [address] [place], [place] [phone] [place] [address] Other 08/30/2011 Instructions Comment . Hypertension - well controlled - continue with current medications, continue with no added salt diet. Pt has been encouraged to exercise daily. The pt has been advised to call the office if there are any acute concerns about change in blood pressure readings at home. Chronic Depression and anxiety - the pt has symptoms of chronic anxiety and depression that have been fairly well controlled since the last office visit. The pt has expected periods of exacerbation with abatement of the symptoms with change in situational exposure. No change in current medications. Polymyalgia - continue with cymbalta . Hypertension - not quite optimally controlled - continue with current medications, continue with no added salt diet. Pt has been encouraged to exercise daily. The pt has been advised to call the office if there are any acute concerns about change in blood pressure readings at home. Check Renal Doppler. PMR - pt to continue with cymbalta for her depression and polymyalgia symptoms. Pt has history of tobaccoism - I have recommended that she have a screening CT scan of her chest has she has extensive smoking history and currently is an every day smoker in a home with another smoker. . Hypertension - uncontrolled - the patient's medications have been modified as documented in the visit note. The patient has been counseled to cut back on salt in diet for a no added salt diet, low fat diet, start an exercise program with low weight bearing exercises and higher aerobic activity for heart health. The patient is to check blood pressure readings as an outpatient and either fax , call, or email the readings to the office next week for practitioner to review. The pt is to call for acute concerns. Pt instructed to increase her toprol to 25mg two pills daily - call with pressures in two weeks - if pressures are improved, will call out rx for toprol 50mg daily. PMR and depression and Joint pain- continue with cymbalta. RX for joint pain in hand for voltaren gel. . Hypertension - well controlled - continue with current medications, continue with no added salt diet. Pt has been encouraged to exercise daily. The pt has been advised to call the office if there are any acute concerns about change in blood pressure readings at home. Reflux - intermittent - decrease Pepcid use down to lowest dose possible. Diarrhea - improved - monitor symptoms. . Hypertension - well controlled - continue with current medications, continue with no added salt diet. Pt has been encouraged to exercise daily. The pt has been advised to call the office if there are any acute concerns about change in blood pressure readings at home. Depression and Joint pain both improved with pt's increase in cymbalta - pt to fill new RX for cymbalta 60mg daily. take the metoprolol at 7am, 7pm and lisinopril 10AM and 10PM. . Hypertension - uncontrolled - the patient's medications have been modified as documented in the visit note. The patient has been counseled to cut back on salt in diet for a no added salt diet, low fat diet, start an exercise program with low weight bearing exercises and higher aerobic activity for heart health. The patient is to check blood pressure readings as an outpatient and either fax , call, or email the readings to the office next week for practitioner to review. The pt is to call for acute concerns. take the metoprolol at 7am, 7pm and lisinopril 10AM and 10PM. . Hypertension - well controlled - continue with current medications, continue with no added salt diet. Pt has been encouraged to exercise daily. The pt has been advised to call the office if there are any acute concerns about change in blood pressure readings at home. UTI - pt with positive urinalysis - culture sent if appropriate. Antibiotic electronically prescribed to pt's pharmacy of choice. Pt to call if symptoms do not improve. Pt to have appt with Dr. Ordoñez . Hypertension - well controlled - continue with current medications, continue with no added salt diet. Pt has been encouraged to exercise daily. The pt has been advised to call the office if there are any acute concerns about change in blood pressure readings at home. Recommended pt to contact Dr. Duncan - the plaquenil is bothering her eyes. I have recommended that pt see Dr. Benites. . Hypertension - well controlled - continue with current medications, continue with no added salt diet. Pt has been encouraged to exercise daily. The pt has been advised to call the office if there are any acute concerns about change in blood pressure readings at home. PMR - referral to Dr. Duncan for eval of her Polymyalgia symptoms. Pt to take prn Aleve for pain . Headache - Start on the Naprosyn at 1/2 pill up to three times a day, then if needed, can take up to a full pill twice daily. UTI prevention - Activia - yogurt Cultrelle or Lactobacillus, or moya colon health - probiotics that have the same properties as the activia, but more bacterial cultures, take the pills daily. Cranberry juice, wet wipes front to back - get wet wipes with aloe in them to help retain your natural moisture. Hypertension - improved - continue with the coreg. . Skin lesion biopsied - the lesion is likely a melanoma - I have discussed the fact that the entire lesion was not excised due to significant extension of the lesion. She is aware that the lesion is most likely a melanoma and is aware of the need for further excision of the lesion by surgeon. We will remove the sutures in 2 weeks. . Hypertension - well controlled - continue with current medications, continue with no added salt diet. Pt has been encouraged to exercise daily. The pt has been advised to call the office if there are any acute concerns about change in blood pressure readings at home. Chronic Depression and anxiety - the pt has symptoms of chronic anxiety and depression that have been fairly well controlled since the last office visit. The pt has expected periods of exacerbation with abatement of the symptoms with change in situational exposure. No change in current medications. hold the flexeril start on the LEVSIN - use it at least one time a day - use up to four times daily if needed for spasms of the abdomen . Hypertension - well controlled - continue with current medications, continue with no added salt diet. Pt has been encouraged to exercise daily. The pt has been advised to call the office if there are any acute concerns about change in blood pressure readings at home. Epigastric discomfort - hold the flexeril start on the LEVSIN - use it at least one time a day - use up to four times daily if needed for spasms of the abdomen we will order a ct of abdomen and pelvis if the questran does not help the loose stools and abdominal pain - so call the office when you are back from your trip to let us know if the medication helped.. Abdominal pain - and Diarrhea - ct of abdomen and pelvis if the Questran does not help the loose stools and abdominal pain. Hypertension - well controlled - continue with current medications, continue with no added salt diet. Pt has been encouraged to exercise daily. The pt has been advised to call the office if there are any acute concerns about change in blood pressure readings at home. . Hypertension - well controlled - continue with current medications, continue with no added salt diet. Pt has been encouraged to exercise daily. The pt has been advised to call the office if there are any acute concerns about change in blood pressure readings at home. Depression - uncontrolled - Pt has been counseled about the diagnosis of depression, the potential causes, and risks associated with the diagnosis. The pt denies suicidal ideation, or plans. The patient has been counseled about treatment options, and understands the risks associated with treatment of depression, as well as the risks associated with NOT treating the depression. I believe the pt will benefit from medical intervention and an antidepressant has been appropriately prescribed for this patient. Pt started on cymbalta. . Ongoing flank/low back pain - will check x-ray - The pt is to use prn antiinflammatories to manage acute pain. The patient is to call the office if the pain is worsening or does not improve. Nasal spray- use twice daily, one spray per nostril twice daily, after 30 minutes, rinse out nose with saline spray.. Use opposite hand per nostril to spray in the nasal steroid allergy spray. Sinusitis - Pt has acute infection - pain in face, maxillary region, Pt informed to use decongestant, RX given to patient, sinus rinses also recommended. Call if symptoms do not show improvement. . Hypertension - well controlled - continue with current medications, continue with no added salt diet. Pt has been encouraged to exercise daily. The pt has been advised to call the office if there are any acute concerns about change in blood pressure readings at home. Pericardia rub - chronic - pt to use naprosyn 250mg bid x 1 week then daily x 1 week then stop - if symptoms worsen or pt feels short of breath she is to call clinic. Zyrtec or Connor daily . Sinusitis - Pt has acute infection - pain in face, maxillary region, Pt informed to use decongestant, RX given to patient, sinus rinses also recommended. Call if symptoms do not show improvement. Allergies - chronic - recommended pt to use allergy medication as prescribed. Pt has been counseled as to the appropriate use of the medication. Pt to call if allergy symptoms are not controlled with the medication. Patient does not want to try nasal spray so I have recommended that she start connor or zyrtec daily for allergy/sinus symptoms. If using nasal spray, instructions as follows: Nasal spray- use twice daily, one spray per nostril twice daily, after 30 minutes, rinse out nose with saline spray.. Use opposite hand per nostril to spray in the nasal steroid allergy spray. . UTI - pt with positive urinalysis - culture sent if appropriate. Antibiotic electronically prescribed to pt's pharmacy of choice. Pt to call if symptoms do not improve. Low back pain- the patient was instructed in appropriate posture, need for weight loss to alleviate abdominal obesity that is worsening the patient's back pain.. The pt is to use prn antiinflammatories to manage acute pain. The patient is to call the office if the pain is worsening or does not improve. . Medicare Exam - today we discussed the patients past history, immunizations, preventative exams/evaluations - colonoscopy, fecal occult blood testing, routine labs for renal function, glucose, cholesterol, osteoporosis evaluations, cardiovascular testing and cancer screenings. We have also discussed mental health and the signs/symptoms of depression. The patient was advised of home safety evaluations and the need to make sure that as the aging process continues, we need to be aware of different ways to make the home a safer place to reside. The patient has also been counseled that exercise is necessary - and of utmost importance as we age to help decrease fall risk and to maintain independece in the home. Today we discussed the need for the patient to create paperwork for Advanced directives as well as for the patient to provide this office with a copy of her DOP[employer] paperwork for health care surrogate. . Hypertension - well controlled - continue with current medications, continue with no added salt diet. Pt has been encouraged to exercise daily. The pt has been advised to call the office if there are any acute concerns about change in blood pressure readings at home. Hematuria - symptoms of UTI - suspect interstitial cystitis - pt to start on amitriptylline - 10mg 1/2 to 1 pill at bedtime if needed for symptoms of dysuria. . Medicare Exam - today we discussed the patients past history, immunizations, preventative exams/evaluations - colonoscopy, fecal occult blood testing, routine labs for renal function, glucose, cholesterol, osteoporosis evaluations, cardiovascular testing and cancer screenings. We have also discussed mental health and the signs/symptoms of depression. The patient was advised of home safety evaluations and the need to make sure that as the aging process continues, we need to be aware of different ways to make the home a safer place to reside. The patient has also been counseled that exercise is necessary - and of utmost importance as we age to help decrease fall risk and to maintain independece in the home. Today we discussed the need for the patient to create paperwork for Advanced directives as well as for the patient to provide this office with a copy of her DOPA paperwork for health care surrogate. . Pericardial bqz-CEH-Ycrzsofg-arm pain-history of shingles -Dr. George in to evaluate patient-plan to admit for further work up and close monitoring. Plan to get labs STAT including a cardiac panel. A stat echo has also been ordered as well with cardiology consult. . . ADMIT FROM CLINIC TO HOSPITAL - PT IS ACUTELY ILL, REQUIRES HOSPITALIZATION. THE PATIENT HAS BEEN EVALUATED IN CLINIC AND THIS STANDS THE HOSPITAL HISTORY AND PHYSICAL EXAMINATION. THE PATIENT HAS BEEN SENT TO THE HOSPITAL WITH WRITTEN ORDERS FOR TREATMENT AND EVALUATION OF THE ACUTE ILLNESS. Pericardial zqz-DVC-Fkwqtfbu-arm pain-history of shingles-Dr. George in to evaluate patient-plan to admit for further work up and close monitoring. Plan to get labs STAT including a cardiac panel. A stat echo has also been ordered as well with cardiology consult. toprol 1/2 pill twice daily. Hypertension - well controlled - continue with current medications, continue with no added salt diet. Pt has been encouraged to exercise daily. The pt has been advised to call the office if there are any acute concerns about change in blood pressure readings at home. . Hypertension - well controlled - continue with current medications, continue with no added salt diet. Pt has been encouraged to exercise daily. The pt has been advised to call the office if there are any acute concerns about change in blood pressure readings at home. Constipation - uncontrolled - I have discussed with the patient the need for adequate fiber and water intake to facilitate soft, easily passed stools. The pt noted understanding of our conversation. I have given the patient a recipe for "power pudding" - equal parts, bran flakes, prune juice, and apple sauce. The pt is to call if symptoms not improved on this regimen. Recommended pt to start kn benefiber . Hypertension - well controlled - continue with current medications, continue with no added salt diet. Pt has been encouraged to exercise daily. The pt has been advised to call the office if there are any acute concerns about change in blood pressure readings at home. Fatigue/malaise - discussed need to check labs - concern for potential arthralgia/myalgias. Will give RX after review of labs. Increase your probiotic to twice daily I sent a RX in for Cipro to your pharmacy. Take 2 tabs twice daily today then 1 tab twice daily until gone. I sent your urine for culture and we will call you Sunday with the results. Monitor blood pressure and pulse at home and report readings on Sunday. Check chemistry panel today. . UTI-UA in the office today shows moderate blood- plan to send for culture. Discussed natural and expected course of this diagnosis and need to alert me if symtpoms do not follow expected course, or if any worse. RX sent to patient's pharmacy. Hypertension - No medication changes today- The patient has been counseled to cut back on salt in diet for a no added salt diet, low fat diet, start an exercise program with low weight bearing exercises and higher aerobic activity for heart health. The patient is to check blood pressure readings as an outpatient and either fax , call, or email the readings to the office next week for practicioner to review. The pt is to call for acute concerns. . Sacroiliitis - back exercises discussed with the patient , pt to continue with anti-inflammatories. Pt is to call if the symptoms do not improve or if they worsen. Hypertension - well controlled - continue with current medications, continue with no added salt diet. Pt has been encouraged to exercise daily. The pt has been advised to call the office if there are any acute concerns about change in blood pressure readings at home. Monitor your blood pressure at home and record. Bring in your readings to your next appointment, or as directed. Call for chest pain, shortness of breath, headaches, or other concerns.. Urinary Tract Infection-discussed natural and expected course of this diagnosis and to alert me if symptoms do not follow expected course, or if any worse. UA positive for infection today in the office-plan to send for culture and will call patient with results. RX sent to patient's pharmacy. Avoid tub baths, restrictive underwear, etc. Recommend patient start on probiotic while taking the antibiotic to prevent diarrhea. Patient verbalized understanding of plan. HTN-not well controlled at home-instructed patient to montior blood pressure and pulse at home and bring in 2-3 weeks for review. Take a probiotic while you are on the antibiotic. . Hypertension - well controlled - continue with current medications, continue with no added salt diet. Pt has been encouraged to exercise daily. The pt has been advised to call the office if there are any acute concerns about change in blood pressure readings at home. UTI - pt with positive urinalysis - culture sent if appropriate. Antibiotic electronically prescribed to pt's pharmacy of choice. Pt to call if symptoms do not improve. take benadryl 25mg every 6 hours x 48 hours, and pepcid 20mg twice a day x 48 hours start steroid tomorrow steroid shot today. Allergic Reaction/Hives - discussed diagnosis with patient, need to avoid allergen, and when/if the patient should go to the emergency room. Pt was instructed to take benadryl 25mg q 6 hours x 48 hours, and pepcid 20mg bid x 48 hours, pt also given RX for prednisone taper. increase lisinopril to 20mg twice daily . Hypertension - uncontrolled - the patient's medications have been modified as documented in the visit note. The patient has been counseled to cut back on salt in diet for a no added salt diet, low fat diet, start an exercise program with low weight bearing exercises and higher aerobic activity for heart health. The patient is to check blood pressure readings as an outpatient and either fax , call, or email the readings to the office next week for practitioner to review. The pt is to call for acute concerns. increase lisinopril to 20mg twice daily Costochondritis - pt to use anti-inflammatories as directed.. Pt is to call if the chest pain does not improve. Naproxen 500mg bid. Tobacco abuse - chronic condition for this patient. Patient has been counseled about need to stop smoking due to the negative health affects. Pt has vocalized understanding and states that they will consider smoking cessation, but the pt is not yet ready to use medication to assist cessation. . UTI - pt with positive urinalysis - culture sent if appropriate. Antibiotic electronically prescribed to pt's pharmacy of choice. Pt to call if symptoms do not improve. Hypertension - well controlled - continue with current medications, continue with no added salt diet. Pt has been encouraged to exercise daily. The pt has been advised to call the office if there are any acute concerns about change in blood pressure readings at home. Headache - pt to take the toradol orally and call if her symptoms do not improve. Pt has been counseled about the need to take medication as directed by physician, or call if unable to tolerate the medication. . Hip pain - stat xray right hip - antiinflammatories. Pt to use heat to hip, monitor symptoms - and pt to call if not improving, pt to be called with hip xray report. . Sinusitis - Pt has acute infection - pain in face, maxillary region, Pt informed to use decongestant, RX given to patient, sinus rinses also recommended. Call if symptoms do not show improvement. BPPV - Benign Paroxysmal Positional Vertigo - discussed diagnosis with the patient, offered the pt the appropriate additional information in hand-out. Pt instructed in home exercises to help alleviate and prevent future recurrent episodes of vertigo. Pt informed that if symptoms worsen, call the office for further instructions/medication interventions. . Hypertension - well controlled - continue with current medications, continue with no added salt diet. Pt has been encouraged to exercise daily. The pt has been advised to call the office if there are any acute concerns about change in blood pressure readings at home. Chronic Depression and anxiety - the pt has symptoms of chronic anxiety and depression that have been fairly well controlled since the last office visit. The pt has expected periods of exacerbation with abatement of the symptoms with change in situational exposure. No change in current medications. Tobacco use - the pt states that she is cutting back on her smoking - self- limiting her number of cigarettes daily - she has cut back from 1ppd to 1/2 ppd. . Hypertension - well controlled - continue with current medications, continue with no added salt diet. Pt has been encouraged to exercise daily. The pt has been advised to call the office if there are any acute concerns about change in blood pressure readings at home. Abdominal pain - intermittent diarrhea - recommended bland diet and transition to liquid diet if symptoms of abdominal pain has not improved. Pt to call at the end of the week if symptoms are not improved and she will need to have Flagyl if symptoms are not resolved. . Polymyalgia Rheumatica - rx for steroids given to patient for short term treatment of symptoms. Pt is aware of potential increased risk of GI bleed, decrease in bone density, and increased risk of steroid induced diabetes. The patient is to take steroids with food, and call if they are concerned for any potential adverse side effects. . Hypertension - well controlled - continue with current medications, continue with no added salt diet. Pt has been encouraged to exercise daily. The pt has been advised to call the office if there are any acute concerns about change in blood pressure readings at home. Hyperlipidemia - pt has been counseled about appropriate diet, exercise, and need for low fat food choices. I have discussed the need for the patient to take medications as prescribed. If the patient has negative side effects from the medication, they are to CALL the office and not abruptly discontinue the medication without discussion with a practicioner in the office. We will check labs in 3-6 months for follow up on the patient's chronic medical problem and to assure normal liver response to medications. Skin tags removed with shave biopsy and bases cauterized with silver nitrate. . Hypertension - well controlled - continue with current medications, continue with no added salt diet. Pt has been encouraged to exercise daily. The pt has been advised to call the office if there are any acute concerns about change in blood pressure readings at home. Headache - resolved - continue with current treatments. Tobaccoism - pt not interested in stopping. . Hypertension - well controlled - continue with current medications, continue with no added salt diet. Pt has been encouraged to exercise daily. The pt has been advised to call the office if there are any acute concerns about change in blood pressure readings at home. UTI - pt with positive urinalysis - culture sent if appropriate. Antibiotic electronically prescribed to pt's pharmacy of choice. Pt to call if symptoms do not improve. accuflora - 14billion unit - take while on antibiotics call if you are not feeling any better by sunday . Diverticulitis - rx for antibiotic sent to pt's pharmacy - pt advised to avoid seeds, nuts, popcorn, or any other food which has been proven to upset the pt's stomach. accuflora - 14billion unit - take while on antibiotics call if you are not feeling any better by sunday increase cymbalta to 60mg daily (ok to take two pills of the 30mg cymbalta) . Polymyalgia Rheumatica - increase RX for cymbalta. Hypertension - well controlled - continue with current medications, continue with no added salt diet. Pt has been encouraged to exercise daily. The pt has been advised to call the office if there are any acute concerns about change in blood pressure readings at home. flu shot today . Hypertension - well controlled - continue with current medications, continue with no added salt diet. Pt has been encouraged to exercise daily. The pt has been advised to call the office if there are any acute concerns about change in blood pressure readings at home. Functional diarrhea - improved - continue with PPI and dietary restrictions. tobacco use - again recommended pt to stop smoking - discussed smoking cessation strategies. . Hypertension - well controlled - continue with current medications, continue with no added salt diet. Pt has been encouraged to exercise daily. The pt has been advised to call the office if there are any acute concerns about change in blood pressure readings at home. Dysuria - check urine Tobaccoism - continue to attempt to cut back on tobacco intake with goal of stopping. . STOP THE DOXYCYCLINE, START ON CIPROFLOXACIN 500 mg twice daily x 7 days.. on review of the hospital culture, a bacteria did grow from the urine, was treated withthe IV VANCOMYCIN, BUT I SUSPECT IT DIDNOT GET FULLY TREATED. An MRI AND CAROTID DOPPLER. Hypertension - uncontrolled - the patient's medications have been modified as documented in the visit note. The patient has been counseled to cut back on salt in diet for a no added salt diet, low fat diet, start an exercise program with low weight bearing exercises and higher aerobic activity for heart health. The patient is to check blood pressure readings as an outpatient and either fax , call, or email the readings to the office next week for practicioner to review. The pt is to call for acute concerns. Pt started on Coreg 3.125mg bid take benadryl 25mg every 6 hours x 48 hours, and pepcid 20mg twice a day x 48 hours, pt also given RX for prednisone. Allergic Reaction/ Hives - discussed diagnosis with patient, need to avoid allergen, and when/if the patient should go to the emergency room. Pt was instructed to take benadryl 25mg q 6 hours x 48 hours, and pepcid 20mg bid x 48 hours, pt also given RX for prednisone taper. zyrtec or clairitin . Sinusitis - Pt has acute infection - pain in face, maxillary region, Pt informed to use decongestant, RX given to patient, sinus rinses also recommended. Call if symptoms do not show improvement. Allergies - chronic - recommended pt to use allergy medication as prescribed. Pt has been counseled as to the appropriate use of the medication. Pt to call if allergy symptoms are not controlled with the medication. If using nasal spray, instructions as follows: Nasal spray- use twice daily, one spray per nostril twice daily, after 30 minutes, rinse out nose with saline spray.. Use opposite hand per nostril to spray in the nasal steroid allergy spray. tick bite - rx for doxycycline - and use benadryl cream on the tick bites to help decrease itching bull frog - sunscreen and insect repellent . tick bite - rx for doxycycline - and use benadryl cream on the tick bites to help decrease itching miralax. Constipation - uncontrolled - I have discussed with the patient the need for adequate fiber and water intake to facilitate soft , easily passed stools. The pt noted understanding of our conversation. I have given the patient a recipe for "power pudding" - equal parts, bran flakes, prune juice, and apple sauce. The pt is to call if symptoms not improved on this regimen. Obtain KUB today and proceed as indicated. If pain persists, recommend CT scan. Recommended pt to start on miralax . DYSURIA - WITH RECURRENT UTI - WILLGIVE ANTIBIOTIC AND REFER PT TO SEE DR. CHOW ABOUT RECTOCELE AND CYSTOCELE.
--- OUTSIDE RECORDS SUMMARY | 2019-01-26 14:22 | XMS REPORT | CCD ---
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 Role Phone [facility] Unavailable CCM Unavailable Summary Purpose Interface Exchange Insurance Providers Payer name Policy type / Coverage type Covered republican ID Effective Begin Date Effective End Date WPS Medicare Part B Medicare Part B [id number] Unknown FOR LIFE WPS Medicare Part B [id number] Unknown Family history Mother Diagnosis Age At Onset Myocardial infarction Unknown Father Diagnosis Age At Onset Cancer Unknown bladder cancer Unknown Myocardial infarction Unknown Brother Diagnosis Age At Onset Myocardial infarction Unknown Social History Social History Element Codes Description Effective Dates Marital status Unknown 02/02/[address]: 89471201 Current every day smoker 02/02/2016 Number of children Unknown 2 sons living and well 03/20/2012 Living arrangements Unknown House 03/20/2012 Employment Unknown Retired 03/20/2012 Number of years using tobacco Unknown 40 03/20/2012 Number of cigarettes/day Unknown 10 ( Half a pack) 03/20/[address]: 706152060 Never drinks alcohol 03/20/2012 Allergies, Adverse Reactions, Alerts Substance Reaction Codes Entered Date Inactivated Date Status levaquin tendonitis Unknown 12/06/2018 No Inactive Date Active * NO KNOWN FOOD ALLERGIES Unknown 07/01/2012 No Inactive Date Active cephalexin RxNorm: 2231 04/19/2012 No Inactive Date Active AUGMENTIN angioedema, RxNorm: 398558 12/06/2018 No Inactive Date Active SULFA(SULFONAMIDE ANTIBIOTICS) Unknown 04/19/2012 No Inactive Date Active METRONIDAZOLE Unknown 01/22/2018 No Inactive Date Active Past Medical History Illness Codes Condition Status Onset Date Resolved Date Essential (primary) hypertension ICD-9: 401.9 ICD-10: I10 Active 07/23/2014 Unknown Adverse effect of unspecified drugs, medicaments [...] ICD-9: 564.5 ICD-10: K59.1 Active 06/19/2017 Unknown Tobacco use ICD-9: 305.1 ICD-10: Z72.0 Active 11/26/2014 Unknown Insect bite (nonvenomous) of abdominal wall, [...] Problems Condition Codes Effective Dates Condition Status Essential (primary) hypertension ICD-9: 401.9 ICD-10: I10 07/23/2014 Active Adverse effect of unspecified drugs, medicaments [...] diarrhea ICD-9: 564.5 ICD-10: K59.1 06/19/2017 Active Tobacco use ICD-9: 305.1 ICD-10: Z72.0 11/26/2014 Active Insect bite (nonvenomous) of abdominal wall, [...] Date Stop Date Status Fill Instructions lisinopril 10 mg tablet RxNorm: 245781 1 Tablet(s) PO BID 12/1601/14/2019 Active lisinopril 10 mg tablet RxNorm: 816534 1 Tablet(s) PO BID 12/1612/15/2018 Inactive Toprol XL 25 mg tablet,extended release RxNorm: 516084 TAKE 1 TABLET TWICE A DAY 12/09/2018 No Stop Date Active Cymbalta 60 mg capsule,delayed release RxNorm: 321242 TAKE 1 CAPSULE DAILY 12/09/2018 No Stop Date Active prednisone 20 mg tablet RxNorm: 952116 2 Tablet(s) PO daily 12/10/2018 Inactive Kenalog 40 mg/mL suspension for injection RxNorm: 0387265 1.5 Milliliter(s) Inj 12/06/2018 12/06/2018 Inactive Augmentin 875 mg-125 mg tablet RxNorm: 019555 1 Tablet(s) PO BID 11/26/2018 12/02/2018 Inactive Levaquin 500 mg tablet RxNorm: 750389 1 Tablet(s) PO daily 08/201911/29/2018 Inactive furosemide 20 mg tablet RxNorm: 766563 TAKE 1 TABLET DAILY No Stop Date Active Augmentin 875 mg-125 mg tablet RxNorm: 421671 1 Tablet(s) PO BID 10/14/2018 10/23/2018 Inactive doxycycline hyclate 100 mg tablet RxNorm: 490940 1 Tablet(s) PO BID 03/04/2018 03/10/2018 Inactive Pepcid AC 20 mg tablet RxNorm: 603322 1 Tablet(s) PO BID 201704/16/2019 Active pt requested a 90 day supply please Pepcid AC 20 mg tablet RxNorm: 456644 1 Tablet(s) PO BID 201701/21/2018 Inactive Pepcid AC 20 mg tablet RxNorm: 618797 1 Tablet(s) PO BID 201701/17/2018 Inactive Pepcid AC 20 mg tablet RxNorm: 432099 1 Tablet(s) PO BID 201712/18/2017 Inactive Flagyl 500 mg tablet RxNorm: 101598 1 Tablet(s) PO TID 201712/28/2017 Inactive Cymbalta 60 mg capsule,delayed release RxNorm: 131096 1 CAPSULE(S) PO DAILY 1 CAPSULE(S) PO DAILY 12/14/2017 12/08/2018 Inactive Toprol XL 25 mg tablet,extended release RxNorm: 816296 1 TABLET(S) PO BID 12/14/2017 12/08/2018 Inactive furosemide 20 mg tablet RxNorm: 908494 TAKE 1 TABLET DAILY 11/06/2018 Inactive Kenalog 40 mg/mL suspension for injection RxNorm: 4679498 1.5 Milliliter(s) Inj 08/15/2017 08/15/2017 Inactive triamcinolone acetonide 0.025 % topical cream RxNorm: 2703769 1 Application TOP BID as needed 08/15/2017 08/19/2017 Inactive prednisone 20 mg tablet RxNorm: 254024 2 Tablet(s) PO daily 10/201608/19/2017 Inactive Flagyl 500 mg tablet RxNorm: 386250 1 Tablet(s) PO TID 201608/10/2017 Inactive Flagyl 500 mg tablet RxNorm: 767107 1 Tablet(s) PO TID 201607/31/2017 Inactive Questran 4 gram powder for susp in a packet RxNorm: 452661 1/2 packet PO QID 06/19/2017 01/14/2018 Inactive Levsin/SL 0.125 mg sublingual tablet RxNorm: 1384501 1 Tablet(s) SL QID as needed abdominal pain or abdominal spasms 02/13/2017 08/19/2017 Inactive cyclobenzaprine 5 mg tablet RxNorm: 962099 1 Tablet(s) PO TID as needed 02/08/2017 02/12/2017 Inactive cyclobenzaprine 5 mg tablet RxNorm: 656380 1 Tablet(s) PO TID as needed 02/05/2017 02/07/2017 Inactive Cipro 250 mg tablet RxNorm: 092553 1 Tablet(s) PO BID 201602/11/2017 Inactive Cymbalta 60 mg capsule,delayed release RxNorm: 023284 1 Capsule(s) PO daily 1 CAPSULE(S) PO DAILY 12/18/2016 12/12/2017 Inactive Toprol XL 25 mg tablet,extended release RxNorm: 867332 1 Tablet(s) PO BID 12/18/2016 12/12/2017 Inactive [SAVINGS FOR NON-COVERED DRUGS -- BIN:834241, PCN: ASPROD1, Group: XXXXX, ID# [id number], Questions: . THIS IS NOT INSURANCE.] ciprofloxacin 500 mg tablet RxNorm: 793621 1 Tablet(s) PO BID 12/12/2016 12/17/2016 Inactive furosemide 20 mg tablet RxNorm: 579115 TAKE 1 TABLET DAILY 12/201611/11/2017 Inactive levofloxacin 500 mg tablet RxNorm: 132902 1 Tablet(s) PO daily 06/21/2016 06/25/2016 Inactive Kenalog 40 mg/mL suspension for injection RxNorm: 3406726 Milliliter(s) Inj 06/21/2016 06/21/2016 Inactive hydrocodone 5 mg-acetaminophen 325 mg tablet RxNorm: 881221 1-2 Tablet(s) PO Q4- 6H as needed 11/03/2015 02/01/2016 Inactive Cymbalta 60 mg capsule,delayed release RxNorm: 581169 1 Capsule(s) PO daily 1 CAPSULE(S) PO DAILY 11/03/2015 12/17/2016 Inactive furosemide 20 mg tablet RxNorm: 817931 Tablet(s) TAKE 1 TABLET ONCE DAILY 11/03/2015 11/16/2016 Inactive Toprol XL 25 mg tablet,extended release RxNorm: 208699 2 Tablet(s) PO daily 11/03/2015 12/17/2016 Inactive [SAVINGS FOR NON-COVERED DRUGS -- BIN:549528, PCN: ASPROD1, Group: XXXXX, ID# [id number], Questions: . THIS IS NOT INSURANCE.] Cymbalta 60 mg capsule,delayed release RxNorm: 954636 1 Capsule(s) PO daily 1 CAPSULE(S) PO DAILY 05/31/2015 11/02/2015 Inactive Toprol XL 25 mg tablet,extended release RxNorm: 976803 2 Tablet(s) PO daily 01/25/2015 11/02/2015 Inactive [SAVINGS FOR NON-COVERED DRUGS -- BIN:357656, PCN: ASPROD1, Group: XXXXX, ID# [id number], Questions: . THIS IS NOT INSURANCE.] Voltaren 1 % topical gel RxNorm: 590688 2 Gram(s) TOP QID to hands 01/25/2015 05/24/2015 Inactive [SAVINGS FOR NON-COVERED DRUGS -- BIN:096604, PCN: ASPROD1, Group : XXXXX, ID# [id number], Questions: . THIS IS NOT INSURANCE.] furosemide 20 mg tablet RxNorm: 171435 TAKE 1 TABLET ONCE DAILY 12/17/2014 11/02/2015 Inactive Kenalog 40 mg/mL suspension for injection RxNorm: 8245176 2 Milliliter(s) Inj UD 09/17/2014 09/17/2014 Inactive [SAVINGS FOR UNINSURED PATIENTS -- BIN:124615, PCN: ASPROD1, Group: AME08, ID# [id number], Process claim through MedImpact, for questions: . THIS IS NOT INSURANCE.] Levaquin 500 mg tablet RxNorm: 199401 1 Tablet(s) PO daily 08/16/2014 Inactive [SAVINGS FOR UNINSURED PATIENTS -- BIN:489804, PCN: ASPROD1, Group: AME08 , ID# [id number], Process claim through MedImpact, for questions: . THIS IS NOT INSURANCE.] Kenalog 40 mg/mL suspension for injection RxNorm: 3837978 Milliliter(s) Inj 08/03/2014 08/03/2014 Inactive [SAVINGS FOR UNINSURED PATIENTS -- BIN:263437, PCN: ASPROD1, Group: AME08, ID# [id number], Process claim through MedImpact, for questions: . THIS IS NOT INSURANCE.] azithromycin 500 mg tablet RxNorm: 096815 1 Tablet(s) PO UD 08/02/2014 Inactive dispense a zpack azithromycin 500 mg tablet RxNorm: 473995 1 Tablet(s) PO daily 08/03/2014 08/07/2014 Inactive 1 tab daily Cymbalta 60 mg capsule,delayed release RxNorm: 019574 1 Capsule(s) PO daily 07/23/2014 05/31/2015 Inactive [SAVINGS FOR UNINSURED PATIENTS -- BIN:157883, PCN: ASPROD1, Group: AME08, ID# [id number], Process claim through MedImpact, for questions: . THIS IS NOT INSURANCE.] Kenalog 40 mg/mL suspension for injection RxNorm: 0618935 1 1/2 Milliliter(s) Inj 04/27/2014 04/27/2014 Inactive [SAVINGS FOR UNINSURED PATIENTS -- BIN:852775, PCN: ASPROD1, Group: AME08, ID# [id number], Process claim through MedImpact, for questions: . THIS IS NOT INSURANCE.] meclizine 25 mg tablet RxNorm: 610635 1 Tablet(s) PO Q6 PRN 05/26/2014 Inactive [SAVINGS FOR UNINSURED PATIENTS -- BIN:917338, PCN: ASPROD1, Group: AME08 , ID# [id number], Process claim through MedImpact, for questions: . THIS IS NOT INSURANCE.] Levaquin 500 mg tablet RxNorm: 151629 1 Tablet(s) PO daily 05/03/2014 Inactive [SAVINGS FOR UNINSURED PATIENTS -- BIN:153125, PCN: ASPROD1, Group: AME08 , ID# [id number], Process claim through MedImpact, for questions: . THIS IS NOT INSURANCE.] Cymbalta 30 mg capsule,delayed release RxNorm: 074497 1 Capsule(s) PO daily 03/25/2014 07/22/2014 Inactive Cymbalta 30 mg capsule,delayed release RxNorm: 739754 1 Capsule(s) PO daily 01/28/2014 03/24/2014 Inactive furosemide 20 mg tablet RxNorm: 969721 1 Tablet(s) PO daily TAKE 1 TABLET BY MOUTH ONCE DAILY. 12/22/2013 12/16/2014 Inactive Toprol XL 25 mg tablet,extended release RxNorm: 717086 1 Tablet(s) PO daily 12/22/2013 01/24/2015 Inactive furosemide 20 mg tablet RxNorm: 245542 Tablet(s) PO TAKE 1 TABLET BY MOUTH ONCE DAILY. 12/04/2013 12/21/2013 Inactive prednisone 10 mg tablet RxNorm: 256178 Tablet(s) PO 10/28/2013 11/16/2013 Inactive 60mg d x 4 [id number] daily x 4 urft83ts daily x 4 [id number] daily x 8 days5 mg daily x 8 day2.5 mg daily x 8 days2.5 mg qod x 8 doses then stop Toprol XL 25 mg tablet,extended release RxNorm: 968102 1 Tablet(s) PO daily 08/27/2013 12/21/2013 Inactive Macrobid 100 mg capsule RxNorm: 0068793 1 Capsule(s) PO BID 01/201308/24/2013 Inactive Influenza Virus Vaccine 0.5 mL RxNorm: IM 07/23/2013 07/23/2013 Inactive levofloxacin 500 mg tablet RxNorm: 653636 1 Tablet(s) PO daily 04/29/2013 05/03/2013 Inactive amitriptyline 10 mg tablet RxNorm: 080342 1 Tablet(s) PO qhs prn 1/2 to one tablet at bedtime if needed for bladder spasms 04/29/2013 08/20/2013 Inactive Cipro 250 mg tablet RxNorm: 510310 1 Tablet(s) PO BID 201204/23/2013 Inactive Levaquin 500 mg tablet RxNorm: 196187 1 Tablet(s) PO daily 07/201303/30/2013 Inactive Levaquin 500 mg tablet RxNorm: 017631 1 Tablet(s) PO daily 07/201303/23/2013 Inactive furosemide 20 mg tablet RxNorm: 264750 Tablet(s) PO TAKE 1 TABLET BY MOUTH ONCE DAILY. 03/13/2013 12/03/2013 Inactive furosemide 20 mg tablet RxNorm: 236326 Tablet(s) PO TAKE 1 TABLET BY MOUTH ONCE DAILY. 12/09/2012 03/12/2013 Inactive azithromycin 500 mg tablet RxNorm: 760330 1 Tablet(s) PO daily 11/05/2012 11/14/2012 Inactive rohan prieto Kenalog 40 mg/mL Susp for Injection RxNorm: 2701978 2 Milliliter(s) Inj 11/05/2012 11/05/2012 Inactive Cipro 500 mg tablet RxNorm: 548712 1 Tablet(s) PO BID 201102/05/2013 Inactive furosemide 20 mg tablet RxNorm: 843092 Tablet(s) PO 09/09/2012 12/08/2012 Inactive TAKE 1 TABLET BY MOUTH ONCE DAILY. Toprol XL 25 mg tablet,extended release RxNorm: 180180 1 Tablet(s) PO daily this will replace the coreg 08/26/20122012 Inactive Cipro 500 mg tablet RxNorm: 054818 1 Tablet(s) PO BID 201108/26/2012 Inactive Miralax 17 gram Oral Powder Packet RxNorm: 649908 1 PO daily 07/16/2012 Inactive Miralax 17 gram Oral Powder Packet RxNorm: 240972 1 PO daily 08/10/2013 Inactive furosemide 20 mg tablet RxNorm: 821293 Tablet(s) PO 06/10/2012 09/08/2012 Inactive TAKE 1 TABLET BY MOUTH ONCE DAILY. naproxen 500 mg tablet RxNorm: 497912 1 Tablet(s) PO 201105/08/2012 Inactive Cipro 250 mg tablet RxNorm: 307131 1 Tablet(s) PO BID Take 2 tabs BID today then 1 tab BID for the next 5 days 04/19/2012 04/25/2012 Inactive ketorolac 10 mg Tab RxNorm: 669481 1 Tablet(s) PO TID 201104/17/2012 Inactive ketorolac 60 mg/2 mL IM RxNorm: 853773 Milliliter(s) IM 201104/04/2012 Inactive ketorolac 10 mg Tab RxNorm: 456383 1 Tablet(s) PO TID 201104/10/2012 Inactive ciprofloxacin 500 mg Tab RxNorm: 175285 1 Tablet(s) PO BID 04/13/2012 Inactive ciprofloxacin 500 mg Tab RxNorm: 704505 1 Tablet(s) PO BID 04/03/2012 Inactive Coreg 3.125 mg Tab RxNorm: 568796 1 Tablet(s) PO BID 201108/25/2012 Inactive furosemide 20 mg tablet RxNorm: 108243 1 Tablet(s) PO daily 09/09/2011 Inactive Toprol XL 25 mg tablet,extended release RxNorm: 554160 1 Tablet(s) PO daily No Start Date 08/25/2012 Inactive Caltrate 600 + D oral RxNorm: 722867 oral No Start Date 11/02/2015 Inactive hydroxychloroquine 200 mg tablet RxNorm: 020752 1 Tablet(s) PO BID from dr duncan No Start Date 01/27/2014 Inactive Cipro 500 mg tablet RxNorm: 594511 1/2 Tablet(s) PO daily No Start Date 08/18/2013 Inactive Centrum Silver Ultra Women's Tab RxNorm: 1 Tablet(s) PO daily No Start Date 02/01/2016 Inactive lisinopril 10 mg tablet RxNorm: 485909 1 Tablet(s) PO daily . May take 2 tablets if BP is consistently above 180/100 No Start Date 12/15/2018 Inactive Influenza Virus Vaccine 0.5 mL RxNorm: IM No Start Date 02/02/2016 Inactive hydrocodone 5 mg-acetaminophen 325 mg tablet RxNorm: 826833 1-2 Tablet(s) PO Q4- 6H as needed No Start Date 11/02/2015 Inactive prednisone 10 mg tablet RxNorm: 230771 Tablet(s) PO 60mg daily x 3 days, 40mg daily x 3 days, 20mg daily x 3 days, 10mg daily x 3 days, 5mg daily x 3 days, 5mg QOD x 1 week No Start Date 10/27/2013 Inactive Medication Administered Medication Codes Instructions Start Date Status Kenalog 40 mg/mL suspension for injection RxNorm: 2222587 1.5Milliliter 12/06/2018 No longer Active Kenalog 40 mg/mL suspension for injection RxNorm: 9609729 1.5Milliliter 08/15/2017 No longer Active Kenalog 40 mg/mL suspension for injection RxNorm: 3210557 Milliliter 06/21/2016 No longer Active Kenalog 40 mg/mL suspension for injection RxNorm: 5545037 2MilliliterUD 09/17/2014 No longer Active Kenalog 40 mg/mL suspension for injection RxNorm: 2849984 Milliliter 08/03/2014 No longer Active Kenalog 40 mg/mL suspension for injection RxNorm: 7994146 1 /2Milliliter 04/27/2014 No longer Active Influenza Virus Vaccine 0.5 mL RxNorm: 07/23/2013 No longer Active Kenalog 40 mg/mL Susp for Injection RxNorm: 8932765 2Milliliter 11/05/2012 No longer Active ketorolac 60 mg/2 mL IM RxNorm: 765452 Milliliter 04/04/2012 No longer Active Immunizations Vaccine [...] 07/01/2012 completed Assessments Condition Codes Effective Dates Essential (primary) hypertension ICD-10: I10 ICD-9: 401.9 12/16/2018 Other urticaria ICD-10: L50.8 ICD-9: 909.3 12/06/2018 [...] 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 ICD-9: 564.5 05/21/2018 Tobacco use ICD-10: Z72.0 ICD-9: 305.1 05/21/2018 Insect bite (nonvenomous) of abdominal wall, [...] Visit Reason For Visit Effective Dates Notes Hospital Follow Up 12/16/2018 rash 12/06/2018 dysuria [...] hTSH II 2.26 uIU/mL 07/10/2017 Comp Metabolic Kpt292 NA 140 mEq/L 07/10/2017 Comp Metabolic Rmx343 K 4.2 mEq/L 07/10/2017 Comp Metabolic Bpl841 CL 106 mEq/L 07/10/2017 Comp Metabolic Hnl379 CO2 26.0 mEq/L 07/10/2017 Comp Metabolic Fkd533 ANION GAP 12 07/10/2017 Comp Metabolic Inz720 GLUCOSE 89 mg/dL 07/10/2017 Comp Metabolic Jho000 Creat 0.6 mg/dL 07/10/2017 Comp Metabolic Mdy565 eGFR 105 ml/min/1.73m2 07/10/2017 Comp Metabolic Jpx471 BUN 9 mg/dL 07/10/2017 Comp Metabolic Utr447 B/C Ratio 15.0 Ratio 07/10/2017 Comp Metabolic Fta281 CALCIUM 9.4 mg/dL 07/10/2017 Comp Metabolic Ztu622 ALK PHOS 90 U/L 07/10/2017 Comp Metabolic Raq066 AST(SGOT) 15 U/L 07/10/2017 Comp Metabolic Iyp167 ALT(SGPT) 14 U/L 07/10/2017 Comp Metabolic Scv460 BILI T 0.5 mg/dL 07/10/2017 Comp Metabolic Zbl989 ALBUMIN 4.0 g/dL 07/10/2017 Comp Metabolic Pcb747 TPRO 6.2 g/dL 07/10/2017 Comp Metabolic Goe290 GLOB 2.2 g/dL 07/10/2017 Comp Metabolic Slz272 A/G Ratio 1.8 Ratio 07/10/2017 Comp Metabolic Dqr112 Osmo 278 mOsmo 07/10/2017 Cbc With Differential [...] 32.3 pg 07/10/2017 Cbc With Differential Ord2 [place]% 6.2 % 07/10/2017 Cbc With Differential Ord2 [...] 2.19 K/ul 07/10/2017 Cbc With Differential Ord2 [place] ABS# 0.5 K/ul 07/10/2017 Cbc With Differential Ord2 Eos ABS# 0.1 K/ul 07/10/2017 Cbc With Differential Ord2 Baso ABS# 0.0 K/ul 07/10/2017 Culture Urine [id number] URINE CULTURE SEE NOTES 02/05/2017 Urine Culture Ucult Complete >100,000 col/ml aerobic growth sent to ref lab 02/03/2017 Culture Urine [id number] URINE CULTURE SEE NOTES 12/18/2016 Culture Urine [id number] Continued Results 12/18/2016 Urine Culture Ucult Complete [...] 32.4 pg 02/03/2016 Cbc With Differential Ord2 [place]% 6.6 % 02/03/2016 Cbc With Differential Ord2 [...] 2.38 K/ul 02/03/2016 Cbc With Differential Ord2 [place] ABS# 0.5 K/ul 02/03/2016 Cbc With Differential Ord2 Eos ABS# 0.2 K/ul 02/03/2016 Cbc With Differential Ord2 Baso ABS# 0.0 K/ul 02/03/2016 Cbc With Differential Ord2 New Analyzer Notice Please note new ref ranges starting 10-27-2015 due to implemntation of new five part differential hematolgy analyzer. 02/03/2016 Comp Metabolic Hep174 NA 136 mEq/L 02/03/2016 Comp Metabolic Ldd056 K 4.0 mEq/L 02/03/2016 Comp Metabolic Fle327 CL 102 mEq/L 02/03/2016 Comp Metabolic Fmv457 CO2 28.0 mEq/L 02/03/2016 Comp Metabolic Aky071 ANION GAP 10 02/03/2016 Comp Metabolic Hqm375 GLUCOSE 85 mg/dL 02/03/2016 Comp Metabolic Eea790 Creat 0.7 mg/dL 02/03/2016 Comp Metabolic Tka051 eGFR 88 ml/min/1.73m2 02/03/2016 Comp Metabolic Iyt167 BUN 15 mg/dL 02/03/2016 Comp Metabolic Wnc111 B/C Ratio 21.4 Ratio 02/03/2016 Comp Metabolic Wbh882 CALCIUM 9.2 mg/dL 02/03/2016 Comp Metabolic Yph817 ALK PHOS 81 U/L 02/03/2016 Comp Metabolic Kqp491 AST(SGOT) 19 U/L 02/03/2016 Comp Metabolic Kcl274 ALT(SGPT) 22 U/L 02/03/2016 Comp Metabolic Jcx627 BILI T 0.5 mg/dL 02/03/2016 Comp Metabolic Hpj367 ALBUMIN 4.1 g/dL 02/03/2016 Comp Metabolic Uhl263 TPRO 6.4 g/dL 02/03/2016 Comp Metabolic Cej082 GLOB 2.3 g/dL 02/03/2016 Comp Metabolic Ihh650 A/G Ratio 1.8 Ratio 02/03/2016 Comp Metabolic Nbl863 Osmo 272 mOsmo 02/03/2016 Tsh Ord6 hTSH II 1.61 uIU/mL 02/03/2016 CRP [id number] CRP 1.8 MG/DL 08/21/2013 GFR CALC 7559671 GFR AA >60 ML/MIN 08/21/2013 GFR CALC 8826118 GFR NON-AA >60 ML/MIN 08/21/2013 CBC 2939128 WBC 9.0 10e9/L 08/21/2013 CBC 0564038 RBC 4.68 10e12/L 08/21/2013 CBC 6115985 HGB 15.0 g/dL 08/21/2013 CBC 2604758 HCT DET 43.8 % 08/21/2013 CBC 4382685 MCV 93.6 fL 08/21/2013 CBC 9219084 MCH 32.1 pg 08/21/2013 CBC 4720776 MCHC 34.2 g/dL 08/21/2013 CBC 4430451 PLT 267 10e9/L 08/21/2013 CBC 2561956 MPV 9.0 fL 08/21/2013 CBC 9546303 MARGE % 67.8 % 08/21/2013 CBC 8861809 LY % 24.8 % 08/21/2013 CBC 0331844 MON % 6.2 % 08/21/2013 CBC 7750345 EOS % 1.0 % 08/21/2013 CBC 3677508 BASO % 0.2 % 08/21/2013 CBC 4475969 RDW 13.1 % 08/21/2013 CBC 6037618 ABS MARGE 6.10 10e9/L 08/21/2013 CBC 6808946 ABS LYMPH 2.23 10e9/L 08/21/2013 CBC 4566402 ABS MONO 0.56 10e9/L 08/21/2013 CBC 1455000 ABS EOS 0.09 10e9/L 08/21/2013 CBC 3415184 ABS BASO 0.02 10e9/L 08/21/2013 CBC 7589401 RDW-SD 43.9 fL 08/21/2013 TSH 7041277 TSH 1.898 uIU/ML 08/21/2013 MAGNESIUM 6118315 MAGNESIUM 1.7 MEQ/L 08/21/2013 CHEM 14 7542744 AST 16 U/L 08/21/2013 CHEM 14 2968005 ALT 15 IU/L 08/21/2013 CHEM 14 7889939 BUN 14 MG/DL 08/21/2013 CHEM 14 6957690 ALBUMIN 4.4 GM/DL 08/21/2013 CHEM 14 6062421 CHLORIDE 103 MMOL/L 08/21/2013 CHEM 14 8705299 BILI TOT 0.6 MG/DL 08/21/2013 CHEM 14 1853715 ALK PHOS 80 U/L 08/21/2013 CHEM 14 4666247 SODIUM 138 MMOL/L 08/21/2013 CHEM 14 9140342 CREATININE 0.76 MG/DL 08/21/2013 CHEM 14 7880592 CALCIUM 10.2 MG/DL 08/21/2013 CHEM 14 1422886 POTASSIUM 4.0 MMOL/L 08/21/2013 CHEM 14 6155540 PROT TOT 7.0 GM/DL 08/21/2013 CHEM 14 4947801 GLUCOSE 95 MG/DL 08/21/2013 CHEM 14 1309716 BICARB 29 MMOL/L 08/21/2013 CHEM 14 4964463 ANION GAP 6 MEQ/L 08/21/2013 URINALYSIS NONAUTO W/O SCOPE 76518 Specific [place] 1.020 DateTime(Free Text in Aprima) URINALYSIS NONAUTO W/O SCOPE 73297 PH 5.0 DateTime(Free Text in Aprima) URINALYSIS NONAUTO W/O SCOPE 13020 GLUCOSE Negative DateTime(Free Text in Aprima) URINALYSIS NONAUTO W/O SCOPE 02648 Protein Negative DateTime(Free Text in Aprima) URINALYSIS NONAUTO W/O SCOPE 11825 Blood Mod. Blood DateTime( Free Text in Aprima) URINALYSIS NONAUTO W/O SCOPE 07268 Bilirubin Negative DateTime(Free Text in Aprima) URINALYSIS NONAUTO W/O SCOPE 68600 Ketones Negative DateTime(Free Text in Aprima) URINALYSIS NONAUTO W/O SCOPE 44294 Urobilinogen Negative DateTime(Free Text in Aprima) URINALYSIS NONAUTO W/O SCOPE 98247 Nitrite Negative DateTime(Free Text in Aprima) URINALYSIS NONAUTO W/O SCOPE 84924 Leukocytes Negative DateTime(Free Text in Aprima) URINALYSIS NONAUTO W/O SCOPE 96539 Specific [place] 1.010 DateTime(Free Text in Aprima) URINALYSIS NONAUTO W/O SCOPE 21582 PH 6.0 DateTime(Free Text in Aprima) URINALYSIS NONAUTO W/O SCOPE 70759 GLUCOSE neg DateTime( Free Text in Aprima) URINALYSIS NONAUTO W/O SCOPE 27075 Protein neg DateTime( Free Text in Aprima) URINALYSIS NONAUTO W/O SCOPE 06811 Blood 1+ DateTime(Free Text in Aprima) URINALYSIS NONAUTO W/O SCOPE 78310 Bilirubin neg DateTime(Free Text in Aprima) URINALYSIS NONAUTO W/O SCOPE 90760 Ketones neg DateTime( Free Text in Aprima) URINALYSIS NONAUTO W/O SCOPE 34421 Urobilinogen neg DateTime(Free Text in Aprima) URINALYSIS NONAUTO W/O SCOPE 35812 Nitrite neg DateTime( Free Text in Aprima) URINALYSIS NONAUTO W/O SCOPE 44170 Leukocytes 1+ DateTime(Free Text in Aprima) UA 59451 Specific [place] 1.005 DateTime(Free Text in Aprima ) UA 82995 PH 5 DateTime(Free Text in Aprima) UA 17938 GLUCOSE neg DateTime(Free Text in Aprima) UA 80664 Protein neg DateTime(Free Text in Aprima) UA 92992 Blood 1+ DateTime(Free Text in Aprima) UA 99173 Bilirubin neg DateTime(Free Text in Aprima) UA 03547 Ketones neg DateTime(Free Text in Aprima) UA 08228 Urobilinogen neg DateTime(Free Text in Aprima) UA 86735 Nitrite neg DateTime(Free Text in Aprima) UA 37332 Leukocytes 1+ DateTime(Free Text in Aprima) UA 19418 Specific [place] 1.005 DateTime(Free Text in Aprima ) UA 39546 PH 6.0 DateTime(Free Text in Aprima) UA 11453 GLUCOSE neg DateTime(Free Text in ) UA 87291 Protein neg DateTime(Free Text in ) UA 02986 Blood 1+ DateTime(Free Text in ) UA 44875 Bilirubin neg DateTime(Free Text in ) UA 11123 Ketones neg DateTime(Free Text in ) UA 64265 Urobilinogen neg DateTime(Free Text in ) UA 75804 Nitrite neg DateTime(Free Text in ) UA 80109 Leukocytes neg DateTime(Free Text in ) Review of Systems System Result Effective Dates Constitutional No anorexia 12/16/2018 Constitutional No night [...] time 01/05/2014 None Full Exam - General 1995 Constitutional general appearance Development: well developed 11/17/2013 [...] accomodation 08/27/2013 None Full Exam - General 1995 Ears/Nose/Throat otoscopic exam Overall: external auditory canals clear 08/27/2013 None Full Exam - General 1995 Ears/Nose/Throat otoscopic exam Overall: tympanic membranes clear 08/27/2013 None Full Exam - General 1994 Ears/Nose/Throat oral cavity/pharynx/larynx Overall: oral mucosa clear 08/27/2013 None Full Exam - General 1994 Respiratory auscultation Overall: breath sounds clear bilaterally 08/27/2013 None Full Exam - General 1994 Respiratory respiratory effort/rhythm Overall: no retractions 08/27/2013 None Full Exam - General 1994 Respiratory respiratory effort/rhythm Overall: normal rate 08/27/2013 None Full Exam - General 1994 Cardiovascular extremities Overall: no clubbing 08/27/2013 None Full Exam - General 1994 Cardiovascular auscultation of heart Rate: regular rate 08/27/2013 None Full Exam - General 1994 Cardiovascular auscultation of heart Rhythm: regular rhythm 08/27/2013 None Full Exam - General 1994 Cardiovascular auscultation of heart Heart sounds: pericardial rub 08/27/2013 None Full Exam - General 1994 [...] rate 08/21/2013 None Full Exam - General 1995 Cardiovascular extremities Overall: no clubbing 08/21/2013 None [...] sounds 08/21/2013 None Full Exam - General 1995 Musculoskeletal spine, ribs and pelvis Overall: spine benign 08/21/2013 None Full Exam - General 1995 Musculoskeletal spine, ribs and pelvis Overall: sacroiliac joint benign 08/21/2013 None Full Exam - General 1995 Musculoskeletal spine, ribs and pelvis Overall: good [...] clear 08/21/2013 None Full Exam - General 1995 Ears/Nose/Throat [...] clear 08/18/2013 None Full Exam - General 1995 Ears/Nose/Throat [...] clubbing 04/29/2013 None Full Exam - General 1994 [...] sounds 04/29/2013 None Full Exam - General 1994 [...] retractions 03/24/2013 None Full Exam - General 1995 Respiratory respiratory effort/rhythm Overall: normal rate 03/24/2013 None Full Exam - General 1994 Cardiovascular extremities Overall: no clubbing 03/24/2013 None Full Exam - General 1994 Cardiovascular auscultation of heart Rate: regular rate 03/24/2013 None Full Exam - General 1994 Cardiovascular auscultation of heart Rhythm: regular rhythm 03/24/2013 None Full Exam - General 1994 Cardiovascular auscultation of heart Heart sounds: pericardial rub 03/24/2013 None Full Exam - General 1994 Abdomen abdominal exam Overall: no tenderness 03/24/2013 None Full Exam - General 1995 Abdomen abdominal exam Overall: normal bowel sounds 03/24/2013 None Full Exam - General 1994 [...] retractions 02/06/2013 None Full Exam - General 1995 Respiratory respiratory effort/rhythm Overall: normal rate 02/06/2013 None Full Exam - General 1995 Cardiovascular extremities Overall: no clubbing 02/06/2013 None Full Exam - General 1995 Cardiovascular auscultation of heart Rate: regular rate 02/06/2013 None Full Exam - General 1995 Cardiovascular auscultation of heart Rhythm: regular rhythm 02/06/2013 None Full Exam - General 1994 Cardiovascular auscultation of heart Heart sounds: pericardial rub 02/06/2013 None Full Exam - General 1994 Abdomen abdominal exam Overall: no tenderness 02/06/2013 None Full Exam - General 1995 Abdomen abdominal exam Overall: normal bowel sounds 02/06/2013 None Full Exam - General 1995 Musculoskeletal spine, ribs and pelvis Overall: spine benign 02/06/2013 None Full Exam - General 1995 Musculoskeletal spine, ribs and pelvis Overall: sacroiliac [...] time 11/05/2012 None Full Exam - General 1995 Constitutional general appearance Development: well developed 11/05/2012 None Full Exam - General 1995 Constitutional general appearance Development: appears stated age 0111/05/2012 None Full Exam - General 1994 Eyes pupils and irises Overall: pupils equal, round, reactive to light and accomodation 11/05/2012 None Full Exam - General 1995 [...] accomodation 10/31/2012 None Full Exam - General 1995 Ears/Nose/Throat otoscopic exam Overall: external auditory canals clear 10/31/2012 None Full Exam - General 1995 Ears/Nose/Throat otoscopic exam Overall: tympanic membranes clear 10/31/2012 None Full Exam - General 1995 Ears/Nose/Throat [...] rate 10/31/2012 None Full Exam - General 1995 Cardiovascular auscultation of heart Rhythm: regular rhythm 10/31/2012 None Full Exam - General 1994 Cardiovascular auscultation of heart Heart sounds: pericardial rub 10/31/2012 None Full Exam - General 1994 Abdomen abdominal exam Overall: no tenderness 10/31/2012 None Full Exam - General 1995 Abdomen abdominal exam Overall: normal bowel sounds 10/31/2012 None Full Exam - General 1995 Musculoskeletal [...] rate 07/01/2012 None Full Exam - General 1995 Cardiovascular extremities Overall: no clubbing 07/01/2012 None [...] accomodation 04/19/2012 None Full Exam - General 1994 Ears/Nose/Throat otoscopic exam Overall: external auditory canals clear 04/19/2012 None Full Exam - General 1995 Ears/Nose/Throat otoscopic exam Overall: tympanic membranes clear 04/19/2012 None Full Exam - General 1994 Ears/Nose/Throat [...] clear 04/15/2012 None Full Exam - General 1995 Ears/Nose/Throat [...] retractions 04/15/2012 None Full Exam - General 1994 Respiratory respiratory effort/rhythm Overall: normal rate 04/15/2012 None Full Exam - General 1994 Cardiovascular extremities Overall: no clubbing 04/15/2012 None Full Exam - General 1994 Cardiovascular auscultation of heart Rate: regular rate 04/15/2012 None Full Exam - General 1994 Cardiovascular auscultation of heart Rhythm: regular rhythm 04/15/2012 None Full Exam - General 1994 Cardiovascular auscultation of heart Heart sounds: pericardial rub 04/15/2012 None Full Exam - General 1994 [...] bilaterally 04/04/2012 None Full Exam - General 1995 Respiratory respiratory effort/rhythm Overall: no retractions 04/04/2012 None Full Exam - General 1995 Respiratory respiratory effort/rhythm Overall: normal rate 04/04/2012 None Full Exam - General 1995 Cardiovascular extremities Overall: no clubbing 04/04/2012 None Full Exam - General 1995 Cardiovascular auscultation of heart Rate: regular rate 04/04/2012 None Full Exam - General 1994 Cardiovascular auscultation of heart Rhythm: regular rhythm 04/04/2012 None Full Exam - General 1994 Cardiovascular auscultation of heart Heart sounds: pericardial rub 04/04/2012 None Full Exam - General 1994 Musculoskeletal head and neck Overall: head atraumatic 04/04/2012 None Full Exam - General 1994 Musculoskeletal [...] rate 04/01/2012 None Full Exam - General 1995 Cardiovascular extremities Overall: no clubbing 04/01/2012 None Full Exam - General 1995 Cardiovascular auscultation of heart Rate: regular rate 04/01/2012 None Full Exam - General 1995 Cardiovascular auscultation of heart Rhythm: regular rhythm 04/01/2012 None Full Exam - General 1995 Cardiovascular [...] benign 04/01/2012 None Full Exam - General 1994 Lymphatic neck nodes Overall: posterior cervical chain benign 04/01/2012 None Full Exam - General 1994 Integument inspection of skin Location: right arm 04/01/2012 fine redness noted to right inner upper arm. Full Exam - General 1994 Neurologic deep tendon reflexes Overall: deep tendon reflexes intact 04/01/2012 None Full Exam - General 1994 Neurologic [...] 03/20/2012 None Full Exam - General 1994 Neck inspection of neck Overall: normal size 03/20/2012 None Full Exam - General 1994 Neck [...] rate 03/20/2012 None Full Exam - General 1995 Cardiovascular auscultation of heart Rhythm: regular rhythm 03/20/2012 None Full Exam - General 1995 Cardiovascular auscultation of heart Heart sounds: pericardial rub 03/20/2012 None Full Exam - General 1995 Cardiovascular extremities Overall: no clubbing 03/20/2012 None Full Exam - General 1995 Chest/Breast breast/chest inspection Overall: normal chest shape 03/20/2012 None Full Exam - General 1995 Abdomen abdominal exam Overall: normal bowel sounds 03/20/2012 None Full Exam - General 1995 Abdomen abdominal exam Overall: no tenderness 03/20/2012 None Full Exam - General 1995 Lymphatic neck nodes Overall: anterior cervical chain benign 03/20/2012 None Full Exam - General 1995 Constitutional general appearance Development: appears stated age 0603/20/2012 None Full Exam - General 1995 Constitutional general appearance Evidence of Distress: tearful [...] 03/20/2012 None Full Exam - General 1995 Ears/Nose/Throat [...] CPT-4: J3301 12/06/2018 THER/PROPH/DIAG INJ SC/IM CPT-4: 13553 12/06/2018 URINALYSIS NONAUTO W/O SCOPE CPT-4: 98877 11/25/2018 PPPS, SUBSEQ VISIT CPT -4: G0439 09/02/2018 ADMIN INFLUENZA VIRUS VAC CPT-4: G0008 06/18/2018 ADMIN PNEUMOCOCCAL VACCINE SNOMED CT: 21246152 CPT-4: G0009 06/18/2018 PNEUMOCOCCAL VACC [address]: 85962197 CPT-4: 95048 06/18/2018 FLU VAC NO PRSV 4 DONTE 3 YRS+ Formatting Model/CDA Sections, Assigned to/Abigail Mancia CPT-4: 59624Cjshqyn 06/18/2018 PPPS, SUBSEQ VISIT CPT -4: G0439 08/22/2017 THER/PROPH/DIAG INJ SC/IM CPT-4: 71500 08/15/2017 TRIAMCINOLONE ACET INJ NOS CPT-4: J3301 08/15/2017 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-[address]: 388895572 CPT-4: G0436 12/12/2016 URINALYSIS NONAUTO W/O SCOPE CPT-4: 76995 12/12/2016 ADMIN INFLUENZA VIRUS VAC CPT-4: G0008 07/19/2016 FLU VACC 4 DONTE 3 YRS PLUS IM Formatting Model/CDA Sections, Assigned to/Abigail Mancia SNOMED CT: 74258339 CPT-4: 03012Idkbmzy 07/19/2016 TRIAMCINOLONE ACET INJ NOS CPT-4: J3301 06/21/2016 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-[address]: 449703368 CPT-4: G0436 02/02/2016 ADMIN INFLUENZA VIRUS VAC CPT-4: G0008 08/25/2015 FLU VACC PRSV FREE INC ANTIG Formatting Model/CDA Sections, Assigned to/Abigail Mancia CPT-4: 84334Znfjivk 08/25/2015 BIOPSY SKIN LESION CPT -4: 78177 02/02/2015 TRIAMCINOLONE ACET INJ NOS CPT-4: J3301 09/15/2014 DRAIN/INJECT JOINT/BURSA CPT-4: 99050 09/15/2014 TRIAMCINOLONE ACET INJ NOS CPT-4: J3301 08/03/2014 ADMIN INFLUENZA VIRUS VAC CPT-4: G0008 06/29/2014 FLU VAC NO PRSV 4 DONTE 3 YRS+ Assigned to/Abigail Mancia CPT-4: 94456Cgggaqo 06/29/2014 TRIAMCINOLONE ACET INJ NOS CPT-4: J3301 04/27/2014 ROUTINE VENIPUNCTURE CPT-4: 96198 08/21/2013 URINALYSIS NONAUTO W/O SCOPE CPT-4: 78294 08/18/2013 PRESCRIP TRANSMIT VIA ERX SY CPT-4: G8553 08/18/2013 ADMIN PNEUMOCOCCAL VACCINE SNOMED CT: 61480593 CPT-4: G0009 07/31/2013 Pneumococcal Polysaccharide Vaccine, 23-Valent, Ad CPT-4: 23018 07/31/2013 ADMIN INFLUENZA VIRUS VAC CPT-4: G0008 07/23/2013 FLULAVAL VACC, 3 YRS & >, IM CPT-4: Q2036 07/23/2013 PRESCRIP TRANSMIT VIA ERX SY CPT-4: G8553 04/29/2013 URINALYSIS NONAUTO W/O SCOPE CPT-4: 66619 04/14/2013 URINALYSIS NONAUTO W/O SCOPE CPT-4: 54215 03/24/2013 REMOVAL OF SKIN TAGS <W/15 CPT-4: 79987 02/06/2013 TRIAMCINOLONE ACET INJ NOS CPT-4: J3301 11/05/2012 THER/PROPH/DIAG INJ SC/IM CPT-4: 08895 11/05/2012 PRESCRIP TRANSMIT VIA ERX SY CPT-4: G8553 11/05/2012 URINALYSIS NONAUTO W/O SCOPE CPT-4: 33309 10/31/2012 URINALYSIS NONAUTO W/O SCOPE CPT-4: 97361 09/25/2012 PRESCRIP TRANSMIT VIA ERX SY CPT-4: G8553 09/25/2012 URINALYSIS NONAUTO W/O SCOPE CPT-4: 46670 08/20/2012 PRESCRIP TRANSMIT VIA ERX SY CPT-4: G8553 08/20/2012 ADMIN INFLUENZA VIRUS VAC CPT-4: G0008 07/01/2012 FLULAVAL VACC, 3 YRS & >, IM CPT-4: Q2036 07/01/2012 URINALYSIS NONAUTO W/O SCOPE CPT-4: 22851 04/19/2012 KETOROLAC TROMETHAMINE INJ CPT-4: J1885 04/04/2012 PRESCRIP TRANSMIT VIA ERX SY CPT-4: G8553 04/04/2012 PRESCRIP TRANSMIT VIA ERX SY CPT-4: G8553 04/01/2012 Vital Signs Date Vital 12/16/2018 Blood Pressure 1: 160/84 Code : 8480-6 BMI: 24.2 Code : 08727-5 Heart Rate 1 : 61 bpm Height: 5'8" SpO2: 98% Weight: 159 lbs 12/06/2018 Blood Pressure 1: 118/64 Code : 8480-6 BMI: 24.3 Code : 97197-5 Heart Rate 1 : 65 bpm Height: 5'8" SpO2: 96% Weight: 160 lbs 11/25/2018 Blood Pressure 1: 150/72 Code : 8480-6 BMI: 24.3 Code : 06645-7 Heart Rate 1 : 65 bpm Height: 5'8" SpO2: 98% Temperature: 36.5 (C) / 97.7 (F) Weight: 160 lbs 10/14/2018 Blood Pressure 1: 140/80 Code : 8480-6 BMI: 24.7 Code : 61107-9 Heart Rate 1 : 59 bpm Height: 5'8" SpO2: 97% Weight: 162 lbs 2 oz 09/02/2018 Blood Pressure 1: 140/76 Code : 8480-6 BMI: 21.9 Code : 99223-5 Heart Rate 1 : 56 bpm Height: 5'8" SpO2: 97% Waist Measure (cm): 94 cm Weight: 144 lbs 05/21/2018 Blood Pressure 1: 136/80 Code : 8480-6 BMI: 24.6 Code : 25747-6 Heart Rate 1 : 57 bpm Height: 5'8" SpO2: 96% Weight: 162 lbs 03/04/2018 Blood Pressure 1: 160/82 Code : 8480-6 BMI: 24.3 Code : 57569-4 Heart Rate 1 : 67 bpm Height: 5'8" SpO2: 99% Temperature: 36.6 (C) / 97.9 (F) Weight: 160 lbs 01/22/2018 Blood Pressure 1: 132/84 Code : 8480-6 BMI: 24.2 Code : 24377-2 Heart Rate 1 : 64 bpm Height: 5'8" SpO2: 95% Weight: 159 lbs 10/22/2017 Blood Pressure 1: 152/78 Code : 8480-6 BMI: 24.0 Code : 20505-0 Heart Rate 1 : 68 bpm Height: 5'8" SpO2: 97% Weight: 158 lbs 08/22/2017 BMI: 24.8 Code: 55162-2 Height: 5'8" Weight: 163 lbs 08/15/2017 Blood Pressure 1: 140/74 Code : 8480-6 Heart Rate 1: 75 bpm Height: 5'8" SpO2: 96% Weight: 06/19/2017 Blood Pressure 1: 146/62 Code : 8480-6 BMI: 25.7 Code : 72211-6 Heart Rate 1 : 64 bpm Height: 5'8" SpO2: 96% Weight: 169 lbs 02/13/2017 Blood Pressure 1: 150/78 Code : 8480-6 BMI: 27.2 Code : 04043-3 Heart Rate 1 : 70 bpm Height: 5'8" SpO2: 96% Weight: 179 lbs 02/05/2017 Blood Pressure 1: 146/74 Code : 8480-6 BMI: 26.9 Code : 41251-5 Heart Rate 1 : 70 bpm Height: 5'8" SpO2: 96% Weight: 177 lbs 02/02/2017 Blood Pressure 1: 124/62 Code : 8480-6 BMI: 26.9 Code : 13032-0 Heart Rate 1 : 54 bpm Height: 5'8" SpO2: 94% Weight: 177 lbs 12/12/2016 Blood Pressure 1: 130/72 Code : 8480-6 BMI: 27.1 Code : 45090-7 Heart Rate 1 : 82 bpm Height: 5'8" SpO2: 95% Weight: 178 lbs 8 oz 06/21/2016 Blood Pressure 1: 136/74 Code : 8480-6 BMI: 25.8 Code : 28801-7 Heart Rate 1 : 86 bpm Height: 5'8" SpO2: 98% Weight: 170 lbs 05/24/2016 Blood Pressure 1: 132/80 Code : 8480-6 BMI: 25.7 Code : 50786-3 Heart Rate 1 : 67 bpm Height: 5'8" SpO2: 96% Weight: 169 lbs 02/02/2016 Blood Pressure 1: 138/80 Code : 8480-6 BMI: 25.8 Code : 47828-2 Heart Rate 1 : 67 bpm Height: 5'8" SpO2: 94% Weight: 170 lbs 11/03/2015 Blood Pressure 1: 138/82 Code : 8480-6 BMI: 26.0 Code : 08825-6 Heart Rate 1 : 80 bpm Height: 5'8" SpO2: 92% Weight: 171 lbs 02/02/2015 Blood Pressure 1: 136/88 Code : 8480-6 BMI: 26.6 Code : 72897-6 Heart Rate 1 : 67 bpm Height: 5'8" SpO2: 97% Temperature: 37.2 (C) / 98.9 (F) Weight: 175 lbs 01/25/2015 Blood Pressure 1: 150/92 Code : 8480-6 BMI: 26.6 Code : 61371-7 Heart Rate 1 : 79 bpm Height: 5'8" SpO2: 98% Weight: 175 lbs 11/26/2014 Blood Pressure 1: 148/92 Code : 8480-6 Blood Pressure 2: 142/92 Code: 8480-6 BMI: 26.5 Code: 29465-5 Heart Rate 1: 68 bpm Height: 5'8" Weight: 174 lbs 09/15/2014 Blood Pressure 1: 150/84 Code : 8480-6 BMI: 26.5 Code : 28348-6 Heart Rate 1 : 80 bpm Height: 5'8" Weight: 174 lbs 08/13/2014 Blood Pressure 1: 140/84 Code : 8480-6 Heart Rate 1: 82 bpm Height: Weight: 08/03/2014 Blood Pressure 1: 142/76 Code : 8480-6 BMI: 26.3 Code : 19440-7 Heart Rate 1 : 80 bpm Height: 5'8" Weight: 173 lbs 07/23/2014 Blood Pressure 1: 148/80 Code : 8480-6 Heart Rate 1: 76 bpm Weight: 175 lbs 06/29/2014 Blood Pressure 1: 140/82 Code : 8480-6 BMI: 26.5 Code : 24351-7 Heart Rate 1 : 60 bpm Height: 5'8" Weight: 174 lbs 04/27/2014 Blood Pressure 1: 112/70 Code : 8480-6 BMI: 26.5 Code : 71132-8 Heart Rate 1 : 72 bpm Height: 5'8" SpO2: 98% Weight: 174 lbs 01/28/2014 Blood Pressure 1: 134/80 Code : 8480-6 BMI: 26.6 Code : 31476-1 Heart Rate 1 : 72 bpm Height: 5'8" Weight: 175 lbs 01/05/2014 Blood Pressure 1: 142/86 Code : 8480-6 BMI: 27.2 Code : 93966-1 Heart Rate 1 : 78 bpm Height: 5'8" Weight: 179 lbs 11/17/2013 Blood Pressure 1: 118/62 Code : 8480-6 BMI: 27.1 Code : 68655-8 Heart Rate 1 : 76 bpm Height: 5'8" Weight: 178 lbs 08/27/2013 Blood Pressure 1: 126/80 Code : 8480-6 BMI: 26.6 Code : 56958-1 Heart Rate 1 : 72 bpm Height: [...] Code : 8480-6 BMI: 26.5 Code : 25797-4 Heart Rate 1 : 72 bpm Height: 5'8" Weight: 174 lbs 8 oz 03/24/2013 Blood Pressure 1: 112/78 Code : 8480-6 BMI: 26.2 Code : 22022-7 Heart Rate 1 : 72 bpm Height: [...] Name Status Result Effective Date Notes Quality primary hypertension 12/16/2018 None Onset and [...] data Encounters Encounter Performer Location Codes Date ([id number]) 51885 EST. PATIENT, LEVEL III Diagnosis: Essential (primary) hypertension[ICD10: I10] [facility] CPT-4: 97030 12/16/2018 08907 EST. PATIENT, LEVEL III Diagnosis: Other urticaria[ICD10: L50.8] Diagnosis: Adverse effect of unspecified drugs, medicaments and biological substances, initial encounter[ICD10: T50.905A] Brooke George MD [facility] CPT-4: 18225 12/06/2018 ([id number]) 40816 EST. PATIENT, LEVEL IV Diagnosis: Essential (primary) hypertension[ICD10: I10] Diagnosis: Dysuria[ICD10: R30.0] Diagnosis: Personal history of urinary (tract) infections[ICD10: Z87.440] Tessa George MD [facility] CPT-4: 14361 11/25/2018 ([id number]) 83113 EST. PATIENT, LEVEL III Diagnosis: Diverticulitis of large intestine without perforation or abscess without bleeding[ICD10: K57.32] Tessa George MD [facility] CPT-4: 30356 10/14/2018 ([id number]) 19676 EST. PATIENT, LEVEL IV Diagnosis: Essential (primary) hypertension[ICD10: I10] Diagnosis: Tobacco use[ICD10: Z72.0] Diagnosis: Functional diarrhea[ICD10: K59.1] Tessa George MD [facility] CPT-4: 43341 05/21/2018 ([id number]) 81821 EST. PATIENT, LEVEL III Diagnosis: Insect bite (nonvenomous) of abdominal wall, initial encounter[ICD10 : S30.861A] Tessa George MD [facility] CPT-4: 56360 ([id number]) 69314 EST. PATIENT, LEVEL IV Diagnosis: Essential (primary) hypertension[ICD10: I10] Diagnosis: Tobacco use[ICD10: Z72.0] Diagnosis: Functional diarrhea[ICD10: K59.1] Tessa George MD [facility] CPT-4: 83067 01/22/2018 ([id number]) 18535 EST. PATIENT, LEVEL III Diagnosis: Essential (primary) hypertension[ICD10: I10] Diagnosis: Functional diarrhea[ICD10: K59.1] Tessa George MD [facility] CPT-4: 86698 10/22/2017 [id number] EST. PATIENT, LEVEL III Diagnosis: Rash and other nonspecific skin eruption[ICD10: R21] Brooke George MD, [facility] CPT-4: 52785 08/15/2017 ([id number]) 22031 EST. PATIENT, LEVEL IV Diagnosis: Essential (primary) hypertension[ICD10: I10] Diagnosis: Functional diarrhea[ICD10: K59.1] Diagnosis: Epigastric pain[ICD10: R10.13] Tessa George MD, [facility] CPT- 4: 48536 06/19/2017 ([id number]) 95133 EST. PATIENT, LEVEL IV Diagnosis: Essential (primary) hypertension[ICD10: I10] Diagnosis: Epigastric pain[ICD10: R10.13] Tessa George MD, [facility] CPT- 4: 55256 02/13/2017 03819 EST. PATIENT, LEVEL IV Diagnosis: Low back pain[ICD10: M54.5] Brooke George MD, [facility] CPT-4 : 81850 02/05/2017 45507 EST. PATIENT, LEVEL IV Diagnosis: Dysuria[ICD10: R30.0] Diagnosis: Low back pain[ICD10: M54.5] Brooke George MD, [facility] CPT-4 : 01048 02/02/2017 ([id number]) 13056 EST. PATIENT, LEVEL IV Diagnosis: Essential (primary) hypertension[ICD10: I10] Diagnosis: Dysuria[ICD10: R30.0] Diagnosis: Tobacco use[ICD10: Z72.0] Tessa eGorge MD, [facility] CPT-4: 34206 12/12/2016 88219 EST. PATIENT, LEVEL IV Diagnosis: Other acute sinusitis[ICD10: J01.80] Diagnosis: Other allergic rhinitis[ICD10: J30.89] Brooke George MD, [facility] CPT-4: 80158 06/21/2016 ([id number]) 63681 EST. PATIENT, LEVEL III Diagnosis: Essential (primary) hypertension[ICD10: I10] Diagnosis: Major depressive disorder, single episode, unspecified[ICD10: F32.9] Tessa George MD, [facility] CPT-4: 44997 05/24/2016 ([id number]) 34918 EST. PATIENT, LEVEL IV Diagnosis: Essential (primary) hypertension[ICD10: I10] Diagnosis: Major depressive disorder, single episode, unspecified[ICD10: F32.9] Diagnosis: Tobacco use[ICD10: Z72.0] Tessa George MD [facility] CPT-4: 30801 02/02/2016 ([id number]) 16021 EST. PATIENT, LEVEL IV Diagnosis: Essential (primary) hypertension[ICD10: I10] Diagnosis: Polymyalgia rheumatica[ICD10: M35.3] Diagnosis: Major depressive disorder, single episode, unspecified[ICD10: F32.9] Tessa George MD [facility] CPT-4: 46587 11/03/2015 ([id number]) Miscellaneous no charge Diagnosis: Hyperpigmented skin lesion[ICD9: 709.00] Tessa George MD [facility] CPT-4: 76996 02/12/2015 ([id number]) 44568 EST. PATIENT, LEVEL IV Diagnosis: ESSENTIAL HYPERTENSION[ICD9: 401.9] Diagnosis: DEPRESSIVE DISORDER NEC[ICD9: 311] Diagnosis: POLYMYALGIA RHEUMATICA[ICD9: 725] Tessa George MD [facility] CPT-4: 64162 01/25/2015 ([id number]) 83488 EST. PATIENT, LEVEL IV Diagnosis: ESSENTIAL HYPERTENSION[ICD9: 401.9] Diagnosis: Polymyalgia rheumatica syndrome[ICD9: 725] Diagnosis: Smoking[ICD9: 305.1] Tessa George MD [facility] CPT-4: 36788 11/26/2014 ([id number]) 26276 EST. PATIENT, LEVEL III Diagnosis: ESSENTIAL HYPERTENSION[ICD9: 401.9] Diagnosis: Sacroiliitis[ICD9: 720.2] Tessa George MD [facility] CPT-4: 18461 09/15/2014 ([id number]) 44233 EST. PATIENT, LEVEL III Diagnosis: Hip pain[ICD9: 719.45] Diagnosis: Sacroiliac pain[ICD9: 724.6] Tessa George MD [facility] CPT- 4: 14322 08/13/2014 ([id number]) 29960 EST. PATIENT, LEVEL III Diagnosis: ACUTE SINUSITIS[ICD9: 461.9] Diagnosis: ALLERGIC RHINITIS[ICD9: 477.9] Aviva George MD [facility] CPT-4: 65887 08/03/2014 ([id number]) 53764 EST. PATIENT, LEVEL IV Diagnosis: ESSENTIAL HYPERTENSION[ICD9: 401.9] Diagnosis: DEPRESSIVE DISORDER NEC[ICD9: 311] Diagnosis: POLYMYALGIA RHEUMATICA[ICD9: 725] Tessa George MD, [facility] CPT-4: 08436 07/23/2014 ([id number]) 82776 EST. PATIENT, LEVEL IV Diagnosis: ESSENTIAL HYPERTENSION[ICD9: 401.9] Diagnosis: DEPRESSIVE DISORDER NEC[ICD9: 311] Diagnosis: POLYMYALGIA RHEUMATICA[ICD9: 725] Diagnosis: VACCIN FOR INFLUENZA[ICD10: Z23] Tessa George MD [facility] CPT-4: 63937 06/29/2014 ([id number]) 93660 EST. PATIENT, LEVEL III Diagnosis: ACUTE MAXILLARY SINUSITIS[ICD9: 461.0] Diagnosis: BPPV (benign paroxysmal positional vertigo)[ICD9: 386.11] Aviva George MD [facility] CPT-4: 71895 04/27/2014 ([id number]) 09002 EST. PATIENT, LEVEL III Diagnosis: ESSENTIAL HYPERTENSION[SNOMED: 55636088] Diagnosis: Fatigue[ICD9: 780.79] Diagnosis: DEPRESSIVE DISORDER NEC[ICD9: 311] Tessa George MD [facility] CPT-4: 79481 01/28/2014 ([id number]) 96581 EST. PATIENT, LEVEL III Diagnosis: ESSENTIAL HYPERTENSION[SNOMED: 76065997] Diagnosis: Blurry vision, bilateral[ICD9: 368.8] Tessa George MD [facility] CPT-4: 19755 01/05/2014 ([id number]) 78043 EST. PATIENT, LEVEL IV Diagnosis: POLYMYALGIA RHEUMATICA[ICD9: 725] Diagnosis: PAIN IN LIMB[ICD9: 729.5] Diagnosis: ESSENTIAL HYPERTENSION[SNOMED: 85997289] Tessa George MD [facility] CPT-4: 56863 11/17/2013 ([id number]) 06616 EST. PATIENT, LEVEL III Diagnosis: Polymyalgia rheumatica syndrome[ICD9: 725] Tessa George MD [facility] CPT-4: 96784 08/27/2013 ([id number]) 97084 EST. PATIENT, LEVEL III Diagnosis: ESSENTIAL HYPERTENSION[SNOMED: 46726556] Diagnosis: Fatigue[ICD9: 780.79] Tessa George MD [facility] CPT-4: 02861 08/21/2013 ([id number]) 24922 EST. PATIENT, LEVEL III Diagnosis: Urinary tract infection[ICD9: 599.0] Diagnosis: ESSENTIAL HYPERTENSION[SNOMED: 22918392] Aviva George MD [facility] CPT-4: 62870 08/18/2013 ([id number]) 61627 EST. PATIENT, LEVEL IV Diagnosis: ESSENTIAL HYPERTENSION[SNOMED: 09685073] Diagnosis: HEMATURIA NOS[ICD9: 599.70] Diagnosis: CHRONIC INTERSTITIAL CYSTITIS[ICD9: 595.1] Tessa George MD [facility] CPT-4: 01022 04/29/2013 ([id number]) 83990 EST. PATIENT, LEVEL III Diagnosis: Recurrent urinary tract infection[ICD9: 599.0] Diagnosis: DYSURIA[ICD9: 788.1] Tessa George MD [facility] CPT-4: 70721 03/24/2013 ([id number]) 41096 EST. PATIENT, LEVEL IV Diagnosis: ESSENTIAL HYPERTENSION[SNOMED: 62461506] Diagnosis: HYPERLIPIDEMIA[ICD9: 272.4] Diagnosis: Irritated nevus of neck[ICD9: 216.4] Tessa George MD [facility] CPT-4: 46377 02/06/2013 ([id number]) 76559 EST. PATIENT, LEVEL III Diagnosis: ACUTE MAXILLARY SINUSITIS[ICD9: 461.0] Diagnosis: ACUTE URI[ICD9: 465.9] Diagnosis: COUGH[ICD9: 786.2] Tessa George MD, [facility] CPT-4: 46613 11/05/2012 ([id number]) 22250 EST. PATIENT, LEVEL III Diagnosis: ESSENTIAL HYPERTENSION[SNOMED: 59050377] Diagnosis: ILL-DEFINE CONDITION NEC[ICD9: 799.89] Tessa George MD [facility] CPT-4: 33684 10/31/2012 ([id number]) 03305 EST. PATIENT, LEVEL III Diagnosis: ESSENTIAL HYPERTENSION[SNOMED: 54821724] GUANACO Morales MD CPT-4: 50993 09/03/2012 ([id number]) 48037 EST. PATIENT, LEVEL III Diagnosis: UTI[ICD9: 599.0] Diagnosis: Microscopic hematuria[ICD9: 599.72] Diagnosis: ESSENTIAL HYPERTENSION[SNOMED: 99646637] Tessa George MD [facility] CPT-4: 52234 08/20/2012 ([id number]) 80840 EST. PATIENT, LEVEL IV Diagnosis: Constipation - functional[ICD9: 564.09] Diagnosis: Abdominal pain[ICD9: 789.00] Tessa George MD [facility] CPT- 4: 74239 07/16/2012 ([id number]) 45420 EST. PATIENT, LEVEL IV Diagnosis: ESSENTIAL HYPERTENSION[SNOMED: [id number]] Diagnosis: Fatigue[ICD9: 780.79] Diagnosis: Constipation - functional[ICD9: 564.09] Tessa George MD [facility] CPT-4: 99294 07/01/2012 ([id number]) 40887 EST. PATIENT, LEVEL III Diagnosis: ESSENTIAL HYPERTENSION[SNOMED: 93146188] Diagnosis: HEADACHE[ICD9: 784.0] Tessa George MD [facility] CPT-4: 68866 05/08/2012 [id number] EST. PATIENT, LEVEL IV Diagnosis: Urinary tract infection[ICD9: 599.0] Diagnosis: ESSENTIAL HYPERTENSION[SNOMED: 04867367] Diagnosis: Fatigue[ICD9: 780.79] Tessa George MD [facility] CPT-4: 89494 04/19/2012 ([id number]) 71027 EST. PATIENT, LEVEL IV Diagnosis: ESSENTIAL HYPERTENSION[SNOMED: 86917854] Diagnosis: Mouth dryness[ICD9: 527.7] Diagnosis: HEADACHE[ICD9: 784.0] Diagnosis: CERVICALGIA[ICD9: 723.1] Tessa George MD [facility] CPT-4: 76541 04/15/2012 ([id number]) 92509 EST. PATIENT, LEVEL IV Diagnosis: Urinary tract infection[ICD9: 599.0] Diagnosis: Generally unwell[ICD9: 799.89] Diagnosis: ESSENTIAL HYPERTENSION[SNOMED: 45516300] Diagnosis: MYALGIA AND MYOSITIS[ICD9: 729.1] GUANACO Morales MD CPT-4: 19345 04/04/2012 ([id number]) 41076 EST. PATIENT, LEVEL IV Diagnosis: ESSENTIAL HYPERTENSION[SNOMED: 32448366] Diagnosis: Unsteady gait[ICD9: 781.2] Diagnosis: Neck pain[ICD9: 723.1] Tessa George MD [facility] CPT-4: 12133 04/01/2012 ([id number]) Patient admitted to the hospital from clinic (NO CHARGE) Diagnosis: Pericardial rub[ICD9: 785.3] Diagnosis: ESSENTIAL HYPERTENSION[SNOMED: 10126606] Diagnosis: HEADACHE[ICD9: 784.0] Diagnosis: Arm pain[ICD9: 729.5] Aviva George MD, [facility] CPT-4: 78686K 03/20/2012 Plan of Care Planned Activity Notes [...] and 10PM. 12/16/2018 Appointment: Tessa George WPtel: [address] [place], [place] [address] (15 min) Moderate 12/16/2018 Patient Education: Patient [...] prednisone taper. 12/06/2018 Appointment: Brooke Dominguez WPtel: [facility]5 [facility] (15 min) Moderate 12/06/2018 Patient Education: Patient [...] not improve. 11/25/2018 Appointment: Tessa George WPtel: [facility]5 [facility]66[facility] (15 min) Moderate 11/25/2018 Patient Education: Patient [...] better by sunday10/14/2018 Appointment: Tessa George WPtel: [facility]5 [facility] (15 min) Moderate 10/14/2018 Patient Education: Patient Medication Summary Completed 10/14/2018 Appointment: Tessa George WPtel: [address] [place], [place] [phone] (15 min) Moderate 09/24/2018 Visit Plan: Medicare [...] care surrogate. 09/02/2018 Appointment: Brooke Dominguez WPtel: [facility] - Annual Wellness Visit 09/02/2018 Patient Education: [...] monitor symptoms. 05/21/2018 Appointment: Tessa George WPtel: [facility]9 [facility] (15 min) Moderate 05/21/2018 Patient Education: Patient Medication Summary Completed 05/21/2018 Visit Plan: tick bite - rx for doxycycline - and use benadryl cream on the tick bites to help decrease itching 03/04/2018 Appointment: Tessa George WPtel: [facility] (15 min) Moderate 03/04/2018 Patient Education: [...] cessation strategies. 01/22/2018 Appointment: [facility] (15 min) Moderate 01/22/2018 Patient Education: Patient [...] not resolved. 10/22/2017 Appointment: [facility]el[facility] (15 min) Moderate 10/22/2017 Patient Education: Patient [...] RX for prednisone taper. 08/15/2017 App[facility]ment[facility] [place] (30 min) Complex 08/15/2017 Patient Education: Patient [...] at home. 06/19/2017 Appointment: Tessa George WPtel: [facility] [place] (15 min) Moderate 06/19/2017 Patient Education: Patient [...] the abdomen 02/13/2017 Appointment: [facility]el[facility] [place] (15 min) Moderate 02/13/2017 Patient Education: Patient [...] not improve. 02/05/2017 Appointment: [facility] [place] (15 min) Moderate 02/05/2017 Patient Education: [...] not improve. 02/02/2017 Appointment: Brooke Dominguez WPtel: 1018 [facility]66[facility] (15 min) Moderate 02/02/2017 Patient Education: Patient [...] stopping. 12/12/2016 Appointment: Tessa George WPtel: [address]6 [facility] (15 min) Moderate 12/12/2016 Patient Education: Patient [...] allergy spray. 06/21/2016 Appointment: Aviva Patton [phone] [place] (15 min) Moderate 06/21/2016 Patient Education: [...] weeks. 02/02/2015 Appointment: [facility]el[phone] [facility] 02/02/2015 Patient Education: Patient Medication [...] another smoker. 11/26/2014 Appointment: Tessa George WPtel: [address] [place], [place] [phone] Follow up 11/26/2014 Patient Education: Patient Medication [...] at home. 09/15/2014 Appointment: Tessa George WPtel: [facility]3 [facility] Follow up 09/15/2014 Patient Education: Patient Medication Summary Completed 09/15/2014 Visit Plan: Hip pain - stat xray right hip - antiinflammatories. Pt to use heat to hip, monitor symptoms - and pt to call if not improving, pt to be called with hip xray report. 08/13/2014 Appointment: Tessa George WPtel: [facility]2 [facility] Sick 08/13/2014 Patient Education: Patient Medication [...] 60mg daily. 07/23/2014 Appointment: Tessa George WPtel: [address] [facility] Follow up 07/23/2014 Patient Education: Patient [...] shot today 06/29/2014 Appointment: [facility]Ptel[facility] Follow up 06/29/2014 Patient Education: Patient Medication [...] on cymbalta. 01/28/2014 Appointment: Tessa George WPtel: [address] [place], [place] [id number] Follow up 01/28/2014 Patient Education: Patient Medication [...] Dr. Benites. 01/05/2014 Appointment: Tessa George WPtel: [address] [place], [place] [phone] Follow up 01/05/2014 Patient Education: Patient Medication Summary Completed 01/05/2014 Patient Education: Hypertension Completed 01/05/2014 Appointment: Tessa George WPtel: [address] [place], [place] [phone] Follow up 11/27/2013 Visit Plan: Hypertension - [...] for pain 11/17/2013 Appointment: Tessa George WPtel: [facility]8 [facility] Other 11/17/2013 Patient Education: Patient Medication Summary Completed 11/17/2013 Patient Education: Hypertension Completed 11/17/2013 Appointment: Tessa George WPtel: [address] [place], [place] [address] [place] Lab Draw 10/29/2013 Visit Plan: Polymyalgia [...] side effects. 08/27/2013 Appointment: [facility]Ptel[phone] Follow up 08/27/2013 Patient Education: Patient Medication [...] improve. 08/18/2013 Appointment: Aviva Pat[facility]el[facility] [place] Other 08/18/2013 Patient Education: Patient Medication Summary Completed 08/18/2013 Patient Education: Hypertension Completed 08/18/2013 Appointment: Aviva Patton [facility]el[phone] [place] Injection 07/31/2013 Patient Education: Patient Medication Summary Completed 07/31/2013 Appointment: Aviva Patton [facility]Ptel[phone] [place] Injection 07/23/2013 Patient Education: Patient Medication [...] of dysuria. 04/29/2013 Appointment: Tessa George WPtel: [facility]5 [facility] Follow up 04/29/2013 Patient Education: Patient Medication Summary Completed 04/29/2013 Patient Education: Hypertension Completed 04/29/2013 Appointment: Tessa Geroge WPtel: [facility]5 [facility] Lab Draw 04/14/2013 Patient Education: Patient Medication Summary Completed 04/14/2013 Visit Plan: DYSURIA - WITH RECURRENT UTI - WILLGIVE ANTIBIOTIC AND REFER PT TO SEE DR. HCOW ABOUT RECTOCELE AND CYSTOCELE. 03/24/2013 Appointment: Tessa George WPtel: [facility]5 [facility] Other 03/24/2013 Patient Education: Patient Medication [...] silver nitrate. 02/06/2013 Appointment: Tessa George WPtel: [phone] [facility] Follow up 02/06/2013 Patient Education: Patient Medication Summary Completed 02/06/2013 Patient Education: Hypertension Completed 02/06/2013 Visit Plan: Sinusitis - Pt has acute infection - pain in face, maxillary region, Pt informed to use decongestant, RX given to patient, sinus rinses also recommended. Call if symptoms do not show improvement. 11/05/2012 Appointment: Tessa George WPtel: [phone] [facility] [place] Other 11/05/2012 Patient Education: Patient Medication Summary [...] call clinic. 10/31/2012 Appointment: Tessa George WPtel: [facility]5 [facility] Follow up 10/31/2012 Patient Education: Patient [...] Dr. Ordoñez 09/25/2012 Appointment: Tessa George WPtel: [phone] [facility] Follow up 09/25/2012 Patient Education: Patient [...] at home. 09/03/2012 Appointment: Tessa George WPtel: [phone] [facility] Follow up 09/03/2012 Patient Education: Patient Medication [...] for review. 08/20/2012 Appointment: Aviva Patton WPtel: [facility]5 [phone] Follow up 08/20/2012 Patient Education: Patient Medication [...] miralax 07/16/2012 Appointment: Aviva Patton WPtel: [address] [phone] [facility] 07/16/2012 Patient Education: Patient Medication Summary Completed [...] kn benefiber 07/01/2012 Appointment: Tessa George WPtel: [phone] [facility] Follow up 07/01/2012 Patient Education: Patient Medication [...] in stopping. 05/08/2012 Appointment: Tessa George WPtel: [phone] [facility] [facility] 05/08/2012 Patient Education: Patient [...] concerns. 04/19/2012 Appointment: Aviva Patton WPtel: [phone] [phone] Other 04/19/2012 Patient Education: Patient Medication Summary Completed [...] the coreg. 04/15/2012 Appointment: Tessa George WPtel: [facility]5 [place] [phone] Follow up 04/15/2012 Patient Education: Patient Medication Summary Completed 04/15/2012 Patient Education: High Blood Pressure: Essential Hypertension Completed 2011 Appointment: Tessa George WPtel: [facility]5 [place] [phone] Lab Draw 04/08/2012 Visit Plan: UTI - [...] the medication. 04/04/2012 Appointment: Tessa George WPtel: [facility] Other 04/04/2012 Patient Education: Patient Medication [...] 3.125mg bid 04/01/2012 Appointment: Tessa George WPtel: [address] [place] [address] Other 04/01/2012 Patient Education: Patient Medication Summary Completed 04/01/2012 Patient Education: High Blood Pressure: Essential Hypertension Completed 2011 Visit Plan: ADMIT FROM CLINIC TO HOSPITAL - PT IS ACUTELY ILL, REQUIRES HOSPITALIZATION. THE PATIENT HAS BEEN EVALUATED IN CLINIC AND THIS STANDS THE HOSPITAL HISTORY AND PHYSICAL EXAMINATION. THE PATIENT HAS BEEN SENT TO THE HOSPITAL WITH WRITTEN ORDERS FOR TREATMENT AND EVALUATION OF THE ACUTE ILLNESS. Pericardial hng-ZJA-Tfegdzmj-arm pain-history of shingles- Dr. George in to evaluate patient-plan to admit for further work up and close monitoring. Plan to get labs STAT including a cardiac panel. A stat echo has also been ordered as well with cardiology consult. 03/20/2012 Visit Plan: Pericardial asn-ZRD-Mzgtagwz-arm pain-history of shingles-Dr. George in to evaluate patient-plan to admit for further work up and close monitoring. Plan to get labs STAT including a cardiac panel. A stat echo has also been ordered as well with cardiology consult. . 03/20/2012 Appointment: Aviva Patton WPtel: [address] [place], [place] [phone] [place] Other 03/20/2012 Patient Education: Patient Medication Summary Completed 03/20/2012 Patient Education: High Blood Pressure: Essential Hypertension Completed 2011 Appointment: Aviva Patton WPtel: [address] [place], [place] [id number] [place] [address] Other 08/30/2011 Instructions Comment . Hypertension - not quite optimally controlled [...] home with another smoker. . Hypertension - well controlled - continue [...] possible. Diarrhea - improved - monitor symptoms. take the metoprolol at 7am, 7pm and [...] Pt to take prn Aleve for pain Nasal spray- use twice daily, one spray [...] if symptoms do not show improvement. . ADMIT FROM CLINIC TO HOSPITAL - PT IS ACUTELY ILL, REQUIRES HOSPITALIZATION. THE PATIENT HAS BEEN EVALUATED IN CLINIC AND THIS STANDS THE HOSPITAL HISTORY AND PHYSICAL EXAMINATION. THE PATIENT HAS BEEN SENT TO THE HOSPITAL WITH WRITTEN ORDERS FOR TREATMENT AND EVALUATION OF THE ACUTE ILLNESS. Pericardial ltc-FDC-Mchzbuyc-arm pain-history of shingles-Dr. George in to evaluate patient-plan to admit for further work up and close monitoring. Plan to get labs STAT including a cardiac panel. A stat echo has also been ordered as well with cardiology consult. . Hypertension - well controlled - continue [...] Will give RX after review of labs. toprol 1/2 pill twice daily. Hypertension - well controlled - continue with current medications, continue with no added salt diet. Pt has been encouraged to exercise daily. The pt has been advised to call the office if there are any acute concerns about change in blood pressure readings at home. . Pericardial pln-NCG-Oxxsqcfn-arm pain-history of shingles -Dr. George in to evaluate patient-plan to admit for further work up and close monitoring. Plan to get labs STAT including a cardiac panel. A stat echo has also been ordered as well with cardiology consult. . Take a probiotic while you are on [...] to call if symptoms do not improve. . Medicare Exam - today [...] DOPA paperwork for health care surrogate. . UTI - pt with positive urinalysis [...] pain is worsening or does not improve. Zyrtec or Connor daily . Sinusitis - [...] in the nasal steroid allergy spray. . Hypertension - well controlled - continue [...] of breath she is to call clinic. . Ongoing flank/low back pain - will check x-ray - The pt is to use prn antiinflammatories to manage acute pain. The patient is to call the office if the pain is worsening or does not improve. . Hypertension - well controlled - continue [...] for this patient. Pt started on cymbalta. we will order a ct of abdomen [...] to call if symptoms do not improve. hold the flexeril start on the LEVSIN [...] if needed for spasms of the abdomen increase cymbalta to 60mg daily (ok to [...] situational exposure. No change in current medications. . Skin lesion biopsied - the lesion [...] remove the sutures in 2 weeks. . STOP THE DOXYCYCLINE, START ON CIPROFLOXACIN [...] concerns. Pt started on Coreg 3.125mg bid . Headache - Start on the Naprosyn [...] - improved - continue with the coreg. zyrtec or clairitin . Sinusitis - Pt [...] in the nasal steroid allergy spray. . Hypertension - well controlled - continue [...] to have appt with Dr. Ordoñez . DYSURIA - WITH RECURRENT UTI - WILLGIVE ANTIBIOTIC AND REFER PT TO SEE DR. CHOW ABOUT RECTOCELE AND CYSTOCELE. . Hypertension - well controlled - continue [...] fill new RX for cymbalta 60mg daily. . Hypertension - uncontrolled - the patient's [...] current medications. Polymyalgia - continue with cymbalta Increase your probiotic to twice daily I [...] and bring in 2-3 weeks for review. take benadryl 25mg every 6 hours x [...] pt also given RX for prednisone taper. . UTI - pt with positive urinalysis [...] Tobaccoism - pt not interested in stopping. accuflora - 14billion unit - take while [...] not feeling any better by sunday . Hypertension - well controlled - continue [...] on tobacco intake with goal of stopping. take benadryl 25mg every 6 hours x [...] pt also given RX for prednisone taper. tick bite - rx for doxycycline - [...]
--- OUTSIDE RECORDS SUMMARY | 2019-01-26 14:28 | XMS REPORT | CCD ---
Author Author Aviva Patton Organization Tessa George MD, [facility] Address [address] [place] [address] Phone Care Team Providers Care Central Supply Nurse Name Role Phone Tessa George PP Unavailable CCM Unavailable Summary Purpose Interface Exchange Insurance Providers Payer name Policy type / Coverage type Covered republican ID Effective Begin Date Effective End Date WPS Medicare Part B Medicare Part B [id number] Unknown FOR LIFE WPS Medicare Part B [id number] Unknown Family history Mother Diagnosis Age At Onset Myocardial infarction Unknown Father Diagnosis Age At Onset Cancer Unknown bladder cancer Unknown Myocardial infarction Unknown Brother Diagnosis Age At Onset Myocardial infarction Unknown Social History Social History Element Codes Description Effective Dates Marital status Unknown 02/02/[address]: 11285790 Current every day smoker 02/02/2016 Number of children Unknown 2 sons living and well 03/20/2012 Living arrangements Unknown House 03/20/2012 Employment Unknown Retired 03/20/2012 Number of years using tobacco Unknown 40 03/20/2012 Number of cigarettes/day Unknown 10 ( Half a pack) 03/20/[address]: 663709491 Never drinks alcohol 03/20/2012 Allergies, Adverse Reactions, Alerts Substance Reaction Codes Entered Date Inactivated Date Status levaquin tendonitis Unknown 12/06/2018 No Inactive Date Active * NO KNOWN FOOD ALLERGIES Unknown 07/01/2012 No Inactive Date Active cephalexin RxNorm: 2231 04/19/2012 No Inactive Date Active AUGMENTIN angioedema, RxNorm: 239857 12/06/2018 No Inactive Date Active SULFA(SULFONAMIDE ANTIBIOTICS) Unknown 04/19/2012 No Inactive Date Active METRONIDAZOLE Unknown 01/22/2018 No Inactive Date Active Past Medical History Illness Codes Condition Status Onset Date Resolved Date Adverse effect of unspecified drugs, medicaments and biological substances, initial encounter ICD-9: 995.27 ICD-10: T50.905A Active 12/06/2018 Unknown Other urticaria ICD-9 : 909.3 ICD-10: L50.8 Active 12/06/2018 Unknown Dysuria ICD-9: 788.1 ICD-10: R30.0 Active 12/12/2016 Unknown Essential (primary) hypertension ICD-9: 401.9 ICD-10: I10 Active 07/23/2014 Unknown Personal history of urinary (tract) infections [...] Problems Condition Codes Effective Dates Condition Status Adverse effect of unspecified drugs, medicaments and biological substances, initial encounter ICD-9: 995.27 ICD-10: T50.905A 12/06/2018 Active Other urticaria ICD-9 : 909.3 ICD-10: L50.8 12/06/2018 Active Dysuria ICD-9: 788.1 ICD-10: R30.0 12/12/2016 Active Essential (primary) hypertension ICD-9: 401.9 ICD-10: I10 07/23/2014 Active Personal history of urinary (tract) infections [...] Start Date Stop Date Status Fill Instructions Toprol XL 25 mg tablet,extended release RxNorm: 537533 TAKE 1 TABLET TWICE A DAY 12/09/2018 No Stop Date Active Cymbalta 60 mg capsule,delayed release RxNorm: 390683 TAKE 1 CAPSULE DAILY 12/09/2018 No Stop Date Active prednisone 20 mg tablet RxNorm: 701150 2 Tablet(s) PO daily 12/10/2018 Inactive Kenalog 40 mg/mL suspension for injection RxNorm: 3596362 1.5 Milliliter(s) Inj 12/06/2018 12/06/2018 Inactive Augmentin 875 mg-125 mg tablet RxNorm: 428183 1 Tablet(s) PO BID 11/26/2018 12/02/2018 Inactive Levaquin 500 mg tablet RxNorm: 576512 1 Tablet(s) PO daily 08/201911/29/2018 Inactive furosemide 20 mg tablet RxNorm: 853324 TAKE 1 TABLET DAILY No Stop Date Active Augmentin 875 mg-125 mg tablet RxNorm: 721004 1 Tablet(s) PO BID 10/14/2018 10/23/2018 Inactive doxycycline hyclate 100 mg tablet RxNorm: 827463 1 Tablet(s) PO BID 03/04/2018 03/10/2018 Inactive Pepcid AC 20 mg tablet RxNorm: 334892 1 Tablet(s) PO BID 201704/16/2019 Active pt requested a 90 day supply please Pepcid AC 20 mg tablet RxNorm: 031264 1 Tablet(s) PO BID 201701/21/2018 Inactive Pepcid AC 20 mg tablet RxNorm: 933660 1 Tablet(s) PO BID 201701/17/2018 Inactive Pepcid AC 20 mg tablet RxNorm: 817327 1 Tablet(s) PO BID 201712/18/2017 Inactive Flagyl 500 mg tablet RxNorm: 056368 1 Tablet(s) PO TID 201712/28/2017 Inactive Cymbalta 60 mg capsule,delayed release RxNorm: 171190 1 CAPSULE(S) PO DAILY 1 CAPSULE(S) PO DAILY 12/14/2017 12/08/2018 Inactive Toprol XL 25 mg tablet,extended release RxNorm: 879599 1 TABLET(S) PO BID 12/14/2017 12/08/2018 Inactive furosemide 20 mg tablet RxNorm: 241411 TAKE 1 TABLET DAILY 11/06/2018 Inactive Kenalog 40 mg/mL suspension for injection RxNorm: 1815551 1.5 Milliliter(s) Inj 08/15/2017 08/15/2017 Inactive triamcinolone acetonide 0.025 % topical cream RxNorm: 7108958 1 Application TOP BID as needed 08/15/2017 08/19/2017 Inactive prednisone 20 mg tablet RxNorm: 998844 2 Tablet(s) PO daily 10/201608/19/2017 Inactive Flagyl 500 mg tablet RxNorm: 726938 1 Tablet(s) PO TID 201608/10/2017 Inactive Flagyl 500 mg tablet RxNorm: 088744 1 Tablet(s) PO TID 201607/31/2017 Inactive Questran 4 gram powder for susp in a packet RxNorm: 734994 1/2 packet PO QID 06/19/2017 01/14/2018 Inactive Levsin/SL 0.125 mg sublingual tablet RxNorm: 3543445 1 Tablet(s) SL QID as needed abdominal pain or abdominal spasms 02/13/2017 08/19/2017 Inactive cyclobenzaprine 5 mg tablet RxNorm: 339916 1 Tablet(s) PO TID as needed 02/08/2017 02/12/2017 Inactive cyclobenzaprine 5 mg tablet RxNorm: 483065 1 Tablet(s) PO TID as needed 02/05/2017 02/07/2017 Inactive Cipro 250 mg tablet RxNorm: 920707 1 Tablet(s) PO BID 201602/11/2017 Inactive Cymbalta 60 mg capsule,delayed release RxNorm: 112518 1 Capsule(s) PO daily 1 CAPSULE(S) PO DAILY 12/18/2016 12/12/2017 Inactive Toprol XL 25 mg tablet,extended release RxNorm: 468678 1 Tablet(s) PO BID 12/18/2016 12/12/2017 Inactive [SAVINGS FOR NON-COVERED DRUGS -- BIN:[id number], PCN: ASPROD1, Group: XXXXX, ID# [id number], Questions: . THIS IS NOT INSURANCE.] ciprofloxacin 500 mg tablet RxNorm: 042259 1 Tablet(s) PO BID 12/12/2016 12/17/2016 Inactive furosemide 20 mg tablet RxNorm: 813999 TAKE 1 TABLET DAILY 12/201611/11/2017 Inactive levofloxacin 500 mg tablet RxNorm: 373277 1 Tablet(s) PO daily 06/21/2016 06/25/2016 Inactive Kenalog 40 mg/mL suspension for injection RxNorm: 4228630 Milliliter(s) Inj 06/21/2016 06/21/2016 Inactive hydrocodone 5 mg-acetaminophen 325 mg tablet RxNorm: 387239 1-2 Tablet(s) PO Q4- 6H as needed 11/03/2015 02/01/2016 Inactive Cymbalta 60 mg capsule,delayed release RxNorm: 937993 1 Capsule(s) PO daily 1 CAPSULE(S) PO DAILY 11/03/2015 12/17/2016 Inactive furosemide 20 mg tablet RxNorm: 514284 Tablet(s) TAKE 1 TABLET ONCE DAILY 11/03/2015 11/16/2016 Inactive Toprol XL 25 mg tablet,extended release RxNorm: 883017 2 Tablet(s) PO daily 11/03/2015 12/17/2016 Inactive [SAVINGS FOR NON-COVERED DRUGS -- BIN:106643, PCN: ASPROD1, Group: XXXXX, ID# [id number], Questions: . THIS IS NOT INSURANCE.] Cymbalta 60 mg capsule,delayed release RxNorm: 594142 1 Capsule(s) PO daily 1 CAPSULE(S) PO DAILY 05/31/2015 11/02/2015 Inactive Toprol XL 25 mg tablet,extended release RxNorm: 327415 2 Tablet(s) PO daily 01/25/2015 11/02/2015 Inactive [SAVINGS FOR NON-COVERED DRUGS -- BIN:967323, PCN: ASPROD1, Group: XXXXX, ID# [id number], Questions: . THIS IS NOT INSURANCE.] Voltaren 1 % topical gel RxNorm: 022783 2 Gram(s) TOP QID to hands 01/25/2015 05/24/2015 Inactive [SAVINGS FOR NON-COVERED DRUGS -- BIN:698181, PCN: ASPROD1, Group : XXXXX, ID# [id number], Questions: . THIS IS NOT INSURANCE.] furosemide 20 mg tablet RxNorm: 801328 TAKE 1 TABLET ONCE DAILY 12/17/2014 11/02/2015 Inactive Kenalog 40 mg/mL suspension for injection RxNorm: 0456875 2 Milliliter(s) Inj UD 09/17/2014 09/17/2014 Inactive [SAVINGS FOR UNINSURED PATIENTS -- BIN:841858, PCN: ASPROD1, Group: AME08, ID# [id number], Process claim through MedImp[employer], for questions: . THIS IS NOT INSURANCE.] Levaquin 500 mg tablet RxNorm: 502764 1 Tablet(s) PO daily 08/16/2014 Inactive [SAVINGS FOR UNINSURED PATIENTS -- BIN:787371, PCN: ASPROD1, Group: AME08 , ID# [id number], Process claim through MedImpact, for questions: . THIS IS NOT INSURANCE.] Kenalog 40 mg/mL suspension for injection RxNorm: 6378177 Milliliter(s) Inj 08/03/2014 08/03/2014 Inactive [SAVINGS FOR UNINSURED PATIENTS -- BIN:137128, PCN: ASPROD1, Group: AME08, ID# [id number], Process claim through MedImpact, for questions: . THIS IS NOT INSURANCE.] azithromycin 500 mg tablet RxNorm: 591628 1 Tablet(s) PO UD 08/02/2014 Inactive dispense a zpack azithromycin 500 mg tablet RxNorm: 154017 1 Tablet(s) PO daily 08/03/2014 08/07/2014 Inactive 1 tab daily Cymbalta 60 mg capsule,delayed release RxNorm: 666468 1 Capsule(s) PO daily 07/23/2014 05/31/2015 Inactive [SAVINGS FOR UNINSURED PATIENTS -- BIN:829951, PCN: ASPROD1, Group: [id number], ID# [id number], Process claim through MedImpact, for questions: . THIS IS NOT INSURANCE.] Kenalog 40 mg/mL suspension for injection RxNorm: 7594281 1 1/2 Milliliter(s) Inj 04/27/2014 04/27/2014 Inactive [SAVINGS FOR UNINSURED PATIENTS -- BIN:403697, PCN: ASPROD1, Group: AME08, ID# [id number], Process claim through MedImpact, for questions: . THIS IS NOT INSURANCE.] meclizine 25 mg tablet RxNorm: 791365 1 Tablet(s) PO Q6 PRN 05/26/2014 Inactive [SAVINGS FOR UNINSURED PATIENTS -- BIN:659111, PCN: ASPROD1, Group: [id number] , ID# [id number], Process claim through Med[employer]ivvy[employer], for questions: . THIS IS NOT INSURANCE.] Levaquin 500 mg tablet RxNorm: 200226 1 Tablet(s) PO daily 05/03/2014 Inactive [SAVINGS FOR UNINSURED PATIENTS -- BIN:565858, PCN: ASPROD1, Group: AME08 , ID# [id number], Process claim through MedImpact, for questions: . THIS IS NOT INSURANCE.] Cymbalta 30 mg capsule,delayed release RxNorm: 005140 1 Capsule(s) PO daily 03/25/2014 07/22/2014 Inactive Cymbalta 30 mg capsule,delayed release RxNorm: 399505 1 Capsule(s) PO daily 01/28/2014 03/24/2014 Inactive furosemide 20 mg tablet RxNorm: 771569 1 Tablet(s) PO daily TAKE 1 TABLET BY MOUTH ONCE DAILY. 12/22/2013 12/16/2014 Inactive Toprol XL 25 mg tablet,extended release RxNorm: 627479 1 Tablet(s) PO daily 12/22/2013 01/24/2015 Inactive furosemide 20 mg tablet RxNorm: 808801 Tablet(s) PO TAKE 1 TABLET BY MOUTH ONCE DAILY. 12/04/2013 12/21/2013 Inactive prednisone 10 mg tablet RxNorm: 190088 Tablet(s) PO 10/28/2013 11/16/2013 Inactive 60mg d x 4 [id number] daily x 4 [id number] daily x 4 [id number] daily x 8 days5 mg daily x 8 day2.5 mg daily x 8 days2.5 mg qod x 8 doses then stop Toprol XL 25 mg tablet,extended release RxNorm: 722801 1 Tablet(s) PO daily 08/27/2013 12/21/2013 Inactive Macrobid 100 mg capsule RxNorm: 4051504 1 Capsule(s) PO BID 01/201308/24/2013 Inactive Influenza Virus Vaccine 0.5 mL RxNorm: IM 07/23/2013 07/23/2013 Inactive levofloxacin 500 mg tablet RxNorm: 620215 1 Tablet(s) PO daily 04/29/2013 05/03/2013 Inactive amitriptyline 10 mg tablet RxNorm: 777013 1 Tablet(s) PO qhs prn 1/2 to one tablet at bedtime if needed for bladder spasms 04/29/2013 08/20/2013 Inactive Cipro 250 mg tablet RxNorm: 355216 1 Tablet(s) PO BID 201204/23/2013 Inactive Levaquin 500 mg tablet RxNorm: 792502 1 Tablet(s) PO daily 07/201303/30/2013 Inactive Levaquin 500 mg tablet RxNorm: 770976 1 Tablet(s) PO daily 07/201303/23/2013 Inactive furosemide 20 mg tablet RxNorm: 094890 Tablet(s) PO TAKE 1 TABLET BY MOUTH ONCE DAILY. 03/13/2013 12/03/2013 Inactive furosemide 20 mg tablet RxNorm: 160132 Tablet(s) PO TAKE 1 TABLET BY MOUTH ONCE DAILY. 12/09/2012 03/12/2013 Inactive azithromycin 500 mg tablet RxNorm: 600027 1 Tablet(s) PO daily 11/05/2012 11/14/2012 Inactive rohan prieto Kenalog 40 mg/mL Susp for Injection RxNorm: 9278325 2 Milliliter(s) Inj 11/05/2012 11/05/2012 Inactive Cipro 500 mg tablet RxNorm: 756709 1 Tablet(s) PO BID 201102/05/2013 Inactive furosemide 20 mg tablet RxNorm: 683606 Tablet(s) PO 09/09/2012 12/08/2012 Inactive TAKE 1 TABLET BY MOUTH ONCE DAILY. Toprol XL 25 mg tablet,extended release RxNorm: 136407 1 Tablet(s) PO daily this will replace the coreg 08/26/20122012 Inactive Cipro 500 mg tablet RxNorm: 882260 1 Tablet(s) PO BID 201108/26/2012 Inactive Miralax 17 gram Oral Powder Packet RxNorm: 872439 1 PO daily 07/16/2012 Inactive Miralax 17 gram Oral Powder Packet RxNorm: 116844 1 PO daily 08/10/2013 Inactive furosemide 20 mg tablet RxNorm: 221490 Tablet(s) PO 06/10/2012 09/08/2012 Inactive TAKE 1 TABLET BY MOUTH ONCE DAILY. naproxen 500 mg tablet RxNorm: 563902 1 Tablet(s) PO 201105/08/2012 Inactive Cipro 250 mg tablet RxNorm: 591237 1 Tablet(s) PO BID Take 2 tabs BID today then 1 tab BID for the next 5 days 04/19/2012 04/25/2012 Inactive ketorolac 10 mg Tab RxNorm: 099137 1 Tablet(s) PO TID 201104/17/2012 Inactive ketorolac 60 mg/2 mL IM RxNorm: 684556 Milliliter(s) IM 201104/04/2012 Inactive ketorolac 10 mg Tab RxNorm: 627425 1 Tablet(s) PO TID 201104/10/2012 Inactive ciprofloxacin 500 mg Tab RxNorm: 384618 1 Tablet(s) PO BID 04/13/2012 Inactive ciprofloxacin 500 mg Tab RxNorm: 909341 1 Tablet(s) PO BID 04/03/2012 Inactive Coreg 3.125 mg Tab RxNorm: 690688 1 Tablet(s) PO BID 201108/25/2012 Inactive furosemide 20 mg tablet RxNorm: 642173 1 Tablet(s) PO daily 09/09/2011 Inactive Toprol XL 25 mg tablet,extended release RxNorm: 036188 1 Tablet(s) PO daily No Start Date 08/25/2012 Inactive Caltrate 600 + D oral RxNorm: 375167 oral No Start Date 11/02/2015 Inactive hydroxychloroquine 200 mg tablet RxNorm: 826175 1 Tablet(s) PO BID from dr duncan No Start Date 01/27/2014 Inactive Cipro 500 mg tablet RxNorm: 518707 1/2 Tablet(s) PO daily No Start Date 08/18/2013 Inactive Centrum Silver Ultra Women's Tab RxNorm: 1 Tablet(s) PO daily No Start Date 02/01/2016 Inactive Influenza Virus Vaccine 0.5 mL RxNorm: IM No Start Date 02/02/2016 Inactive hydrocodone 5 mg-acetaminophen 325 mg tablet RxNorm: 587262 1-2 Tablet(s) PO Q4- 6H as needed No Start Date 11/02/2015 Inactive prednisone 10 mg tablet RxNorm: 549555 Tablet(s) PO 60mg daily x 3 days, 40mg daily x 3 days, 20mg daily x 3 days, 10mg daily x 3 days, 5mg daily x 3 days, 5mg QOD x 1 week No Start Date 10/27/2013 Inactive Medication Administered Medication Codes Instructions Start Date Status Kenalog 40 mg/mL suspension for injection RxNorm: 6632694 1.5Milliliter 12/06/2018 No longer Active Kenalog 40 mg/mL suspension for injection RxNorm: 4828377 1.5Milliliter 08/15/2017 No longer Active Kenalog 40 mg/mL suspension for injection RxNorm: 8575885 Milliliter 06/21/2016 No longer Active Kenalog 40 mg/mL suspension for injection RxNorm: 7342126 2MilliliterUD 09/17/2014 No longer Active Kenalog 40 mg/mL suspension for injection RxNorm: 2226067 Milliliter 08/03/2014 No longer Active Kenalog 40 mg/mL suspension for injection RxNorm: 8128963 1 1/2Milliliter 04/27/2014 No longer Active Influenza Virus Vaccine 0.5 mL RxNorm: 07/23/2013 No longer Active Kenalog 40 mg/mL Susp for Injection RxNorm: 3745651 2Milliliter 11/05/2012 No longer Active ketorolac 60 mg/2 mL IM RxNorm: 023797 Milliliter 04/04/2012 No longer Active Immunizations Vaccine [...] 07/01/2012 completed Assessments Condition Codes Effective Dates Other urticaria ICD-10: L50.8 ICD-9: 909.3 12/06/2018 Adverse effect of unspecified drugs, medicaments and biological substances, initial encounter ICD-10: T50.905A ICD-9: 995.27 12/06/2018 Essential (primary) hypertension ICD-10: I10 ICD-9: 401.9 11/25/2018 Dysuria ICD-10: R30.0 ICD-9: 788.1 11/25/2018 Personal history of urinary (tract) infections ICD-10: Z87.440 ICD-9: V13.02 11/25/2018 Diverticulitis of large intestine without perforation [...] immunization ICD-10: Z23 ICD-9: V04.81 07/19/2016 Other allergic rhinitis ICD-10: J30.89 ICD-9: 477.8 06/21/2016 Other acute sinusitis ICD-10: J01.80 ICD-9: 461.9 06/21/2016 Major depressive disorder, single episode, unspecified ICD- 10: F32.9 ICD-9: 311 05/24/2016 Polymyalgia rheumatica ICD-10: M35.3 ICD-9: 725 11/03/2015 Hyperpigmented skin lesion ICD-9: 709.00 02/12/2015 DEPRESSIVE DISORDER NEC ICD-9: 311 2014 POLYMYALGIA RHEUMATICA ICD-9: 725 2014 ESSENTIAL HYPERTENSION ICD-9: 401.9 01/25 Smoking ICD-9: 305.1 11/26/2014 Sacroiliitis ICD-9: 720.2 09/15/2014 Sacroiliac pain ICD-9: 724.6 08/13/2014 Hip pain ICD-9: 719.45 08/13/2014 ALLERGIC RHINITIS ICD-9: 477.9 2013 ACUTE SINUSITIS ICD-9: 461.9 08/03/2014 ACUTE MAXILLARY SINUSITIS ICD-9: 461.0 BPPV (benign [...] ICD-9: V13.02 04/14/2013 DYSURIA ICD-9: 788.1 03/24/2013 HYPERLIPIDEMIA ICD-9: 272.4 02/06/2013 Irritated nevus of neck ICD-9: 216.4 COUGH ICD-9: 786.2 11/05/2012 ACUTE URI ICD-9: 465.9 11/05/2012 ILL-DEFINE CONDITION NEC ICD-9: 799.89 Microscopic hematuria ICD-9: 599.72 08/20 Constipation - functional ICD-9: 564.09 07/16/2012 Abdominal pain ICD-9: 789.00 07/16/2012 HEADACHE ICD-9: 784.0 05/08/2012 Mouth dryness ICD-9: 527.7 04/15/2012 CERVICALGIA ICD-9: 723.1 04/15/2012 MYALGIA AND MYOSITIS ICD-9: 729.1 2011 Unsteady gait ICD-9: 781.2 04/01/2012 Pericardial rub ICD-9: 785.3 03/20/2012 Reason For Visit Reason For Visit Effective Dates Notes rash 12/06/2018 dysuria 11/25/2018 abdominal pain 10/14/2018 [...] hTSH II 2.26 uIU/mL 07/10/2017 Comp Metabolic Qll153 NA 140 mEq/L 07/10/2017 Comp Metabolic Oop401 K 4.2 mEq/L 07/10/2017 Comp Metabolic Eyl237 CL 106 mEq/L 07/10/2017 Comp Metabolic Roa962 CO2 26.0 mEq/L 07/10/2017 Comp Metabolic Pyc420 ANION GAP 12 07/10/2017 Comp Metabolic Nzo027 GLUCOSE 89 mg/dL 07/10/2017 Comp Metabolic Okx489 Creat 0.6 mg/dL 07/10/2017 Comp Metabolic Aji854 eGFR 105 ml/min/1.73m2 07/10/2017 Comp Metabolic Cji642 BUN 9 mg/dL 07/10/2017 Comp Metabolic Zey055 B/C Ratio 15.0 Ratio 07/10/2017 Comp Metabolic Fci724 CALCIUM 9.4 mg/dL 07/10/2017 Comp Metabolic Svg721 ALK PHOS 90 U/L 07/10/2017 Comp Metabolic Xyc364 AST(SGOT) 15 U/L 07/10/2017 Comp Metabolic Acy134 ALT(SGPT) 14 U/L 07/10/2017 Comp Metabolic Wcb284 BILI T 0.5 mg/dL 07/10/2017 Comp Metabolic Qth315 ALBUMIN 4.0 g/dL 07/10/2017 Comp Metabolic Qvo992 TPRO 6.2 g/dL 07/10/2017 Comp Metabolic Xck340 GLOB 2.2 g/dL 07/10/2017 Comp Metabolic Fgc115 A/G Ratio 1.8 Ratio 07/10/2017 Comp Metabolic Xzm877 Osmo 278 mOsmo 07/10/2017 Cbc With Differential Ord2 WBC 7.25 K/ul 07/10/2017 Cbc With Differential Ord2 RBC 4.52 M/ul 07/10/2017 Cbc With Differential Ord2 HGB 14.6 g/dl 07/10/2017 Cbc With Differential Ord2 Neut% 61.4 % 07/10/2017 Cbc With Differential Ord2 HCT 42.9 % 07/10/2017 Cbc With Differential Ord2 Lymph% 30.2 % 07/10/2017 Cbc With Differential Ord2 MCV 94.9 fl 07/10/2017 Cbc With Differential Ord2 MCH 32.3 pg 07/10/2017 Cbc With Differential Ord2 [place]% 6.2 % 07/10/2017 Cbc With Differential Ord2 Eos% 1.8 % 07/10/2017 Cbc With Differential Ord2 MCHC 34.0 pg 07/10/2017 Cbc With Differential Ord2 Baso% 0.4 % 07/10/2017 Cbc With Differential Ord2 PLT 286 K/ul 07/10/2017 Cbc With Differential Ord2 RDW 13.7 % 07/10/2017 Cbc With Differential Ord2 Neut ABS# 4.45 K/ul 07/10/2017 Cbc With Differential Ord2 Lymph ABS# 2.19 K/ul 07/10/2017 Cbc With Differential Ord2 [place] ABS# 0.5 K/ul 07/10/2017 Cbc With Differential Ord2 Eos ABS# 0.1 K/ul 07/10/2017 Cbc With Differential Ord2 Baso ABS# 0.0 K/ul 07/10/2017 Culture Urine [id number] URINE CULTURE SEE NOTES 02/05/2017 Urine Culture Ucult Complete >100,000 col/ml aerobic growth sent to ref lab 02/03/2017 Culture Urine [id number] URINE CULTURE SEE NOTES 12/18/2016 Culture Urine [id number] Continued Results 12/18/2016 Urine Culture Ucult Complete [...] 60.4 % 02/03/2016 Cbc With Differential Ord2 Lymph% 30.6 % 02/03/2016 Cbc With Differential Ord2 MCV 95.7 fl 02/03/2016 Cbc With Differential Ord2 [place]% 6.6 % 02/03/2016 Cbc With Differential Ord2 MCH 32.4 pg 02/03/2016 Cbc With Differential Ord2 MCHC 33.9 pg 02/03/2016 Cbc With Differential Ord2 Eos% 2.1 % 02/03/2016 Cbc With Differential Ord2 PLT 270 K/ul 02/03/2016 Cbc With Differential Ord2 Baso% 0.3 % 02/03/2016 Cbc With Differential Ord2 Neut ABS# 4.70 K/ul 02/03/2016 Cbc With Differential Ord2 RDW 14.0 % 02/03/2016 Cbc With Differential Ord2 Lymph ABS# 2.38 K/ul 02/03/2016 Cbc With Differential Ord2 [place] ABS# 0.5 K/ul 02/03/2016 Cbc With Differential Ord2 Eos ABS# 0.2 K/ul 02/03/2016 Cbc With Differential Ord2 Baso ABS# 0.0 K/ul 02/03/2016 Cbc With Differential Ord2 New Analyzer Notice Please note new ref ranges starting 10-27-2015 due to implemntation of new five part differential hematolgy analyzer. 02/03/2016 Comp Metabolic Kjs396 NA 136 mEq/L 02/03/2016 Comp Metabolic Blv704 K 4.0 mEq/L 02/03/2016 Comp Metabolic Fuw485 CL 102 mEq/L 02/03/2016 Comp Metabolic Tjm313 CO2 28.0 mEq/L 02/03/2016 Comp Metabolic Vsa667 ANION GAP 10 02/03/2016 Comp Metabolic Qhw600 GLUCOSE 85 mg/dL 02/03/2016 Comp Metabolic Jzo343 Creat 0.7 mg/dL 02/03/2016 Comp Metabolic Jum541 eGFR 88 ml/min/1.73m2 02/03/2016 Comp Metabolic Ugt994 BUN 15 mg/dL 02/03/2016 Comp Metabolic Est844 B/C Ratio 21.4 Ratio 02/03/2016 Comp Metabolic Agu295 CALCIUM 9.2 mg/dL 02/03/2016 Comp Metabolic Nwf708 ALK PHOS 81 U/L 02/03/2016 Comp Metabolic Aji215 AST(SGOT) 19 U/L 02/03/2016 Comp Metabolic Emi851 ALT(SGPT) 22 U/L 02/03/2016 Comp Metabolic Mgt693 BILI T 0.5 mg/dL 02/03/2016 Comp Metabolic Lxb255 ALBUMIN 4.1 g/dL 02/03/2016 Comp Metabolic Gmq787 TPRO 6.4 g/dL 02/03/2016 Comp Metabolic Ehh594 GLOB 2.3 g/dL 02/03/2016 Comp Metabolic Jav473 A/G Ratio 1.8 Ratio 02/03/2016 Comp Metabolic Ljc465 Osmo 272 mOsmo 02/03/2016 Tsh Ord6 hTSH II 1.61 uIU/mL 02/03/2016 CRP 8821597 CRP 1.8 MG/DL 08/21/2013 GFR CALC 7306631 GFR AA >60 ML/MIN 08/21/2013 GFR CALC 4955477 GFR NON-AA >60 ML/MIN 08/21/2013 CBC 5255144 WBC 9.0 10e9/L 08/21/2013 CBC 1302207 RBC 4.68 10e12/L 08/21/2013 CBC 8450614 HGB 15.0 g/dL 08/21/2013 CBC 3926722 HCT DET 43.8 % 08/21/2013 CBC 1315358 MCV 93.6 fL 08/21/2013 CBC 1213742 MCH 32.1 pg 08/21/2013 CBC 2716740 MCHC 34.2 g/dL 08/21/2013 CBC 2343997 PLT 267 10e9/L 08/21/2013 CBC 4281603 MPV 9.0 fL 08/21/2013 CBC 1084551 MARGE % 67.8 % 08/21/2013 CBC 3619879 LY % 24.8 % 08/21/2013 CBC 0559910 MON % 6.2 % 08/21/2013 CBC 0751997 EOS % 1.0 % 08/21/2013 CBC 0745250 BASO % 0.2 % 08/21/2013 CBC 7426017 RDW 13.1 % 08/21/2013 CBC 7047415 ABS MARGE 6.10 10e9/L 08/21/2013 CBC 9891322 ABS LYMPH 2.23 10e9/L 08/21/2013 CBC 3685327 ABS MONO 0.56 10e9/L 08/21/2013 CBC 1427951 ABS EOS 0.09 10e9/L 08/21/2013 CBC 0511569 ABS BASO 0.02 10e9/L 08/21/2013 CBC 1405099 RDW-SD 43.9 fL 08/21/2013 TSH 5835721 TSH 1.898 uIU/ML 08/21/2013 MAGNESIUM 0190983 MAGNESIUM 1.7 MEQ/L 08/21/2013 CHEM 14 20280418 AST 16 U/L 08/21/2013 CHEM 14 7506841 ALT 15 IU/L 08/21/2013 CHEM 14 3673358 BUN 14 MG/DL 08/21/2013 CHEM 14 3901931 ALBUMIN 4.4 GM/DL 08/21/2013 CHEM 14 5783108 CHLORIDE 103 MMOL/L 08/21/2013 CHEM 14 7321926 BILI TOT 0.6 MG/DL 08/21/2013 CHEM 14 6735266 ALK PHOS 80 U/L 08/21/2013 CHEM 14 2223349 SODIUM 138 MMOL/L 08/21/2013 CHEM 14 0019883 CREATININE 0.76 MG/DL 08/21/2013 CHEM 14 1039678 CALCIUM 10.2 MG/DL 08/21/2013 CHEM 14 0311865 POTASSIUM 4.0 MMOL/L 08/21/2013 CHEM 14 9039803 PROT TOT 7.0 GM/DL 08/21/2013 CHEM 14 6531161 GLUCOSE 95 MG/DL 08/21/2013 CHEM 14 0279265 BICARB 29 MMOL/L 08/21/2013 CHEM 14 5890788 ANION GAP 6 MEQ/L 08/21/2013 URINALYSIS NONAUTO W/O SCOPE 77295 Specific [place] 1.020 DateTime(Free Text in Aprima) URINALYSIS NONAUTO W/O SCOPE 93777 PH 5.0 DateTime(Free Text in Aprima) URINALYSIS NONAUTO W/O SCOPE 81521 GLUCOSE Negative DateTime(Free Text in Aprima) URINALYSIS NONAUTO W/O SCOPE 67459 Protein Negative DateTime(Free Text in Aprima) URINALYSIS NONAUTO W/O SCOPE 20060 Blood Mod. Blood DateTime( Free Text in Aprima) URINALYSIS NONAUTO W/O SCOPE 73571 Bilirubin Negative DateTime(Free Text in Aprima) URINALYSIS NONAUTO W/O SCOPE 72582 Ketones Negative DateTime(Free Text in Aprima) URINALYSIS NONAUTO W/O SCOPE 29061 Urobilinogen Negative DateTime(Free Text in Aprima) URINALYSIS NONAUTO W/O SCOPE 93924 Nitrite Negative DateTime(Free Text in Aprima) URINALYSIS NONAUTO W/O SCOPE 36657 Leukocytes Negative DateTime(Free Text in Aprima) URINALYSIS NONAUTO W/O SCOPE 93554 Specific [place] 1.010 DateTime(Free Text in Aprima) URINALYSIS NONAUTO W/O SCOPE 11564 PH 6.0 DateTime(Free Text in Aprima) URINALYSIS NONAUTO W/O SCOPE 09596 GLUCOSE neg DateTime( Free Text in Aprima) URINALYSIS NONAUTO W/O SCOPE 14740 Protein neg DateTime( Free Text in Aprima) URINALYSIS NONAUTO W/O SCOPE 44404 Blood 1+ DateTime(Free Text in Aprima) URINALYSIS NONAUTO W/O SCOPE 53487 Bilirubin neg DateTime(Free Text in Aprima) URINALYSIS NONAUTO W/O SCOPE 07169 Ketones neg DateTime( Free Text in Aprima) URINALYSIS NONAUTO W/O SCOPE 56100 Urobilinogen neg DateTime(Free Text in Aprima) URINALYSIS NONAUTO W/O SCOPE 43194 Nitrite neg DateTime( Free Text in Aprima) URINALYSIS NONAUTO W/O SCOPE 22883 Leukocytes 1+ DateTime(Free Text in Aprima) UA 89017 Specific [place] 1.005 DateTime(Free Text in Aprima ) UA 96526 PH 5 DateTime(Free Text in Aprima) UA 78766 GLUCOSE neg DateTime(Free Text in Aprima) UA 98358 Protein neg DateTime(Free Text in Aprima) UA 10939 Blood 1+ DateTime(Free Text in Aprima) UA 17249 Bilirubin neg DateTime(Free Text in Aprima) UA 14000 Ketones neg DateTime(Free Text in Aprima) UA 53868 Urobilinogen neg DateTime(Free Text in Aprima) UA 37617 Nitrite neg DateTime(Free Text in Aprima) UA 56057 Leukocytes 1+ DateTime(Free Text in Aprima) UA 51854 Specific [place] 1.005 DateTime(Free Text in Aprima ) UA 06417 PH 6.0 DateTime(Free Text in Aprima) UA 62375 GLUCOSE neg DateTime(Free Text in Aprima) UA 73306 Protein neg DateTime(Free Text in Aprima) UA 47858 Blood 1+ DateTime(Free Text in Aprima) UA 59657 Bilirubin neg DateTime(Free Text in Aprima) UA 00390 Ketones neg DateTime(Free Text in Aprima) UA 65000 Urobilinogen neg DateTime(Free Text in Aprima) UA 06905 Nitrite neg DateTime(Free Text in Aprima) UA 73503 Leukocytes neg DateTime(Free Text in Aprima) Review of Systems System Result Effective Dates Constitutional recent illness 12/06/2018 Constitutional No chills [...] Result Effective Dates Notes Full Exam - Dermatology Constitutional general appearance [...] time 08/27/2013 None Full Exam - General 1995 Musculoskeletal head and neck Overall: cervical spine benign 08/21/2013 None Full Exam - General 1994 Musculoskeletal head and neck Overall: head atraumatic 08/21/2013 None Full Exam - General 1994 Respiratory respiratory effort/rhythm Overall: no retractions 08/21/2013 None Full Exam - General 1995 Respiratory respiratory effort/rhythm Overall: normal rate 08/21/2013 [...] accomodation 08/18/2013 None Full Exam - General 1995 [...] accomodation 04/29/2013 None Full Exam - General 1995 Ears/Nose/Throat otoscopic exam Overall: external auditory canals clear 04/29/2013 None Full Exam - General 1995 Ears/Nose/Throat otoscopic exam Overall: tympanic membranes clear 04/29/2013 None Full Exam - General 1995 Ears/Nose/Throat [...] clear 02/06/2013 None Full Exam - General 1995 Ears/Nose/Throat [...] sounds 11/05/2012 None Full Exam - General 1995 Musculoskeletal spine, ribs and pelvis Overall: spine benign 11/05/2012 None Full Exam - General 1994 Musculoskeletal spine, ribs and pelvis Overall: sacroiliac joint benign 11/05/2012 None Full Exam - General 1995 Musculoskeletal [...] size 04/01/2012 None Full Exam - General 1995 Neck inspection of neck Overall: normal appearance 04/01/2012 None Full Exam - General 1995 Respiratory auscultation Overall: breath sounds clear bilaterally 04/01/2012 None Full Exam - General 1995 Respiratory respiratory effort/rhythm Overall: no retractions 04/01/2012 None Full Exam - General 1995 Respiratory respiratory effort/rhythm Overall: normal rate 04/01/2012 [...] rub 04/01/2012 None Full Exam - General 1994 Chest/Breast breast/chest inspection Overall: normal chest shape 04/01/2012 None Full Exam - General 1994 Abdomen abdominal exam Overall: no tenderness 04/01/2012 None Full Exam - General 1994 Abdomen abdominal exam Overall: normal bowel sounds 04/01/2012 None Full Exam - General 1994 [...] bilaterally 03/20/2012 None Full Exam - General 1995 Respiratory respiratory effort/rhythm Overall: no retractions 03/20/2012 None Full Exam - General 1995 Respiratory respiratory effort/rhythm Overall: normal rate 03/20/2012 None Full Exam - General 1995 Constitutional general appearance Development: well developed 03/20/2012 None Full Exam - General 1995 [...] CPT-4: J3301 12/06/2018 THER/PROPH/DIAG INJ SC/IM CPT-4: 81437 12/06/2018 URINALYSIS NONAUTO W/O SCOPE CPT-4: 85088 11/25/2018 PPPS, SUBSEQ VISIT CPT -4: G0439 09/02/2018 ADMIN INFLUENZA VIRUS VAC CPT-4: G0008 06/18/2018 ADMIN PNEUMOCOCCAL VACCINE SNOMED CT: 35320465 CPT-4: G0009 06/18/2018 PNEUMOCOCCAL VACC [address]: 25034190 CPT-4: 25445 06/18/2018 FLU VAC NO PRSV 4 DONTE 3 YRS+ Formatting Model/CDA Sections, Assigned to/Abigail Mancia CPT-4: 11928Rxnixaz 06/18/2018 PPPS, SUBSEQ VISIT CPT -4: G0439 08/22/2017 THER/PROPH/DIAG INJ SC/IM CPT-4: 13247 08/15/2017 TRIAMCINOLONE ACET INJ NOS CPT-4: J3301 08/15/2017 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 3-[address]: 485574999 CPT-4: G0436 12/12/2016 URINALYSIS NONAUTO W/O SCOPE CPT-4: 68528 12/12/2016 ADMIN INFLUENZA VIRUS VAC CPT-4: G0008 07/19/2016 FLU VACC 4 DONTE 3 YRS PLUS IM Formatting Model/CDA Sections, Assigned to/Abigail Mancia SNOMED CT: 01199364 CPT-4: 01746Zvfgqib 07/19/2016 TRIAMCINOLONE ACET INJ NOS CPT-4: J3301 06/21/2016 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 3-[address]: 345810134 CPT-4: G0436 02/02/2016 ADMIN INFLUENZA VIRUS VAC CPT-4: G0008 08/25/2015 FLU VACC PRSV FREE INC ANTIG Formatting Model/CDA Sections, Assigned to/Abigail Mancia CPT-4: 61352Ohtgirf 08/25/2015 BIOPSY SKIN LESION CPT -4: 05400 02/02/2015 TRIAMCINOLONE ACET INJ NOS CPT-4: J3301 09/15/2014 DRAIN/INJECT JOINT/BURSA CPT-4: 69271 09/15/2014 TRIAMCINOLONE ACET INJ NOS CPT-4: J3301 08/03/2014 ADMIN INFLUENZA VIRUS VAC CPT-4: G0008 06/29/2014 FLU VAC NO PRSV 4 DONTE 3 YRS+ Assigned to/Abigail Mancia CPT-4: 52764Qwllsuo 06/29/2014 TRIAMCINOLONE ACET INJ NOS CPT-4: J3301 04/27/2014 ROUTINE VENIPUNCTURE CPT-4: 54490 08/21/2013 URINALYSIS NONAUTO W/O SCOPE CPT-4: 70092 08/18/2013 PRESCRIP TRANSMIT VIA ERX SY CPT-4: G8553 08/18/2013 ADMIN PNEUMOCOCCAL VACCINE SNOMED CT: 34386546 CPT-4: G0009 07/31/2013 Pneumococcal Polysaccharide Vaccine, 23-Valent, Ad CPT-4: 91856 07/31/2013 ADMIN INFLUENZA VIRUS VAC CPT-4: G0008 07/23/2013 FLULAVAL VACC, 3 YRS & >, IM CPT-4: Q2036 07/23/2013 PRESCRIP TRANSMIT VIA ERX SY CPT-4: G8553 04/29/2013 URINALYSIS NONAUTO W/O SCOPE CPT-4: 86095 04/14/2013 URINALYSIS NONAUTO W/O SCOPE CPT-4: 36642 03/24/2013 REMOVAL OF SKIN TAGS <W/15 CPT-4: 73444 02/06/2013 TRIAMCINOLONE ACET INJ NOS CPT-4: J3301 11/05/2012 THER/PROPH/DIAG INJ SC/IM CPT-4: 76381 11/05/2012 PRESCRIP TRANSMIT VIA ERX SY CPT-4: G8553 11/05/2012 URINALYSIS NONAUTO W/O SCOPE CPT-4: 83945 10/31/2012 URINALYSIS NONAUTO W/O SCOPE CPT-4: 14377 09/25/2012 PRESCRIP TRANSMIT VIA ERX SY CPT-4: G8553 09/25/2012 URINALYSIS NONAUTO W/O SCOPE CPT-4: 85907 08/20/2012 PRESCRIP TRANSMIT VIA ERX SY CPT-4: G8553 08/20/2012 ADMIN INFLUENZA VIRUS VAC CPT-4: G0008 07/01/2012 FLULAVAL VACC, 3 YRS & >, IM CPT-4: Q2036 07/01/2012 URINALYSIS NONAUTO W/O SCOPE CPT-4: 24223 04/19/2012 KETOROLAC TROMETHAMINE INJ CPT-4: J1885 04/04/2012 PRESCRIP TRANSMIT VIA ERX SY CPT-4: G8553 04/04/2012 PRESCRIP TRANSMIT VIA ERX SY CPT-4: G8553 04/01/2012 Vital Signs Date Vital 12/06/2018 Blood Pressure 1: 118/64 Code : 8480-6 BMI: 24.3 Code : 93453-7 Heart Rate 1 : 65 bpm Height: 5'8" SpO2: 96% Weight: 160 lbs 11/25/2018 Blood Pressure 1: 150/72 Code : 8480-6 BMI: 24.3 Code : 45531-7 Heart Rate 1 : 65 bpm Height: 5'8" SpO2: 98% Temperature: 36.5 (C) / 97.7 (F) Weight: 160 lbs 10/14/2018 Blood Pressure 1: 140/80 Code : 8480-6 BMI: 24.7 Code : 80964-6 Heart Rate 1 : 59 bpm Height: 5'8" SpO2: 97% Weight: 162 lbs 2 oz 09/02/2018 Blood Pressure 1: 140/76 Code : 8480-6 BMI: 21.9 Code : 54197-4 Heart Rate 1 : 56 bpm Height: 5'8" SpO2: 97% Waist Measure (cm): 94 cm Weight: 144 lbs 05/21/2018 Blood Pressure 1: 136/80 Code : 8480-6 BMI: 24.6 Code : 06252-6 Heart Rate 1 : 57 bpm Height: 5'8" SpO2: 96% Weight: 162 lbs 03/04/2018 Blood Pressure 1: 160/82 Code : 8480-6 BMI: 24.3 Code : 14532-8 Heart Rate 1 : 67 bpm Height: 5'8" SpO2: 99% Temperature: 36.6 (C) / 97.9 (F) Weight: 160 lbs 01/22/2018 Blood Pressure 1: 132/84 Code : 8480-6 BMI: 24.2 Code : 55904-6 Heart Rate 1 : 64 bpm Height: 5'8" SpO2: 95% Weight: 159 lbs 10/22/2017 Blood Pressure 1: 152/78 Code : 8480-6 BMI: 24.0 Code : 47811-7 Heart Rate 1 : 68 bpm Height: 5'8" SpO2: 97% Weight: 158 lbs 08/22/2017 BMI: 24.8 Code: 25597-8 Height: 5'8" Weight: 163 lbs 08/15/2017 Blood Pressure 1: 140/74 Code : 8480-6 Heart Rate 1: 75 bpm Height: 5'8" SpO2: 96% Weight: 06/19/2017 Blood Pressure 1: 146/62 Code : 8480-6 BMI: 25.7 Code : 63833-1 Heart Rate 1 : 64 bpm Height: 5'8" SpO2: 96% Weight: 169 lbs 02/13/2017 Blood Pressure 1: 150/78 Code : 8480-6 BMI: 27.2 Code : 58641-4 Heart Rate 1 : 70 bpm Height: 5'8" SpO2: 96% Weight: 179 lbs 02/05/2017 Blood Pressure 1: 146/74 Code : 8480-6 BMI: 26.9 Code : 15990-1 Heart Rate 1 : 70 bpm Height: 5'8" SpO2: 96% Weight: 177 lbs 02/02/2017 Blood Pressure 1: 124/62 Code : 8480-6 BMI: 26.9 Code : 22796-8 Heart Rate 1 : 54 bpm Height: 5'8" SpO2: 94% Weight: 177 lbs 12/12/2016 Blood Pressure 1: 130/72 Code : 8480-6 BMI: 27.1 Code : 75320-7 Heart Rate 1 : 82 bpm Height: 5'8" SpO2: 95% Weight: 178 lbs 8 oz 06/21/2016 Blood Pressure 1: 136/74 Code : 8480-6 BMI: 25.8 Code : 82856-5 Heart Rate 1 : 86 bpm Height: 5'8" SpO2: 98% Weight: 170 lbs 05/24/2016 Blood Pressure 1: 132/80 Code : 8480-6 BMI: 25.7 Code : 78695-8 Heart Rate 1 : 67 bpm Height: 5'8" SpO2: 96% Weight: 169 lbs 02/02/2016 Blood Pressure 1: 138/80 Code : 8480-6 BMI: 25.8 Code : 99913-3 Heart Rate 1 : 67 bpm Height: 5'8" SpO2: 94% Weight: 170 lbs 11/03/2015 Blood Pressure 1: 138/82 Code : 8480-6 BMI: 26.0 Code : 24284-7 Heart Rate 1 : 80 bpm Height: 5'8" SpO2: 92% Weight: 171 lbs 02/02/2015 Blood Pressure 1: 136/88 Code : 8480-6 BMI: 26.6 Code : 25113-6 Heart Rate 1 : 67 bpm Height: 5'8" SpO2: 97% Temperature: 37.2 (C) / 98.9 (F) Weight: 175 lbs 01/25/2015 Blood Pressure 1: 150/92 Code : 8480-6 BMI: 26.6 Code : 80467-2 Heart Rate 1 : 79 bpm Height: 5'8" SpO2: 98% Weight: 175 lbs 11/26/2014 Blood Pressure 1: 148/92 Code : 8480-6 Blood Pressure 2: 142/92 Code: 8480-6 BMI: 26.5 Code: 19097-3 Heart Rate 1: 68 bpm Height: 5'8" Weight: 174 lbs 09/15/2014 Blood Pressure 1: 150/84 Code : 8480-6 BMI: 26.5 Code : 33052-4 Heart Rate 1 : 80 bpm Height: 5'8" Weight: 174 lbs 08/13/2014 Blood Pressure 1: 140/84 Code : 8480-6 Heart Rate 1: 82 bpm Height: Weight: 08/03/2014 Blood Pressure 1: 142/76 Code : 8480-6 BMI: 26.3 Code : 29892-9 Heart Rate 1 : 80 bpm Height: 5'8" Weight: 173 lbs 07/23/2014 Blood Pressure 1: 148/80 Code : 8480-6 Heart Rate 1: 76 bpm Weight: 175 lbs 06/29/2014 Blood Pressure 1: 140/82 Code : 8480-6 BMI: 26.5 Code : 39305-6 Heart Rate 1 : 60 bpm Height: 5'8" Weight: 174 lbs 04/27/2014 Blood Pressure 1: 112/70 Code : 8480-6 BMI: 26.5 Code : 79513-9 Heart Rate 1 : 72 bpm Height: 5'8" SpO2: 98% Weight: 174 lbs 01/28/2014 Blood Pressure 1: 134/80 Code : 8480-6 BMI: 26.6 Code : 48652-3 Heart Rate 1 : 72 bpm Height: 5'8" Weight: 175 lbs 01/05/2014 Blood Pressure 1: 142/86 Code : 8480-6 BMI: 27.2 Code : 88895-9 Heart Rate 1 : 78 bpm Height: 5'8" Weight: 179 lbs 11/17/2013 Blood Pressure 1: 118/62 Code : 8480-6 BMI: 27.1 Code : 45056-7 Heart Rate 1 : 76 bpm Height: 5'8" Weight: 178 lbs 08/27/2013 Blood Pressure 1: 126/80 Code : 8480-6 BMI: 26.6 Code : 84766-4 Heart Rate 1 : 72 bpm Height: [...] Code : 8480-6 BMI: 26.5 Code : 96676-7 Heart Rate 1 : 72 bpm Height: 5'8" Weight: 174 lbs 8 oz 03/24/2013 Blood Pressure 1: 112/78 Code : 8480-6 BMI: 26.2 Code : 32321-2 Heart Rate 1 : 72 bpm Height: [...] Symptom Name Status Result Effective Date Notes Location-Major on the head 12/06/2018 None Color [...] data Encounters Encounter Performer Location Codes Date EST. PATIENT, LEVEL III Diagnosis: Other urticaria[ICD10: L50.8] Diagnosis: Adverse effect of unspecified drugs, medicaments and biological substances, initial encounter[ICD10: T50.905A] [facility] CPT-4: 21561 12/06/2018 ([id number]) 72184 EST. PATIENT, LEVEL IV Diagnosis: Essential (primary) hypertension[ICD10: I10] Diagnosis: Dysuria[ICD10: R30.0] Diagnosis: Personal history of urinary (tract) infections[ICD10: Z87.440] [facility] CPT-4: 17431 11/25/2018 ([id number]) 18513 EST. PATIENT, LEVEL III Diagnosis: Diverticulitis of large intestine without perforation or abscess without bleeding[ICD10: K57.32] Tessa George MD [facility] CPT-4: 33218 10/14/2018 ([id number]) 42673 EST. PATIENT, LEVEL IV Diagnosis: Essential (primary) hypertension[ICD10: I10] Diagnosis: Tobacco use[ICD10: Z72.0] Diagnosis: Functional diarrhea[ICD10: K59.1] Tessa George MD [facility] CPT-4: 00232 05/21/2018 ([id number]) 63010 EST. PATIENT, LEVEL III Diagnosis: Insect bite (nonvenomous) of abdominal wall, initial encounter[ICD10 : S30.861A] Tessa George MD [facility] CPT-4: 72058 ([id number]) 94073 EST. PATIENT, LEVEL IV Diagnosis: Essential (primary) hypertension[ICD10: I10] Diagnosis: Tobacco use[ICD10: Z72.0] Diagnosis: Functional diarrhea[ICD10: K59.1] Tessa George MD [facility] CPT-4: 15099 01/22/2018 ([id number]) 29014 EST. PATIENT, LEVEL III Diagnosis: Essential (primary) hypertension[ICD10: I10] Diagnosis: Functional diarrhea[ICD10: K59.1] Tessa George MD [facility] CPT-4: 60369 10/22/2017 66455 EST. PATIENT, LEVEL III Diagnosis: Rash and other nonspecific skin eruption[ICD10: R21] Brooke George MD, [facility] CPT-4: 68045 08/15/2017 ([id number]) 31357 EST. PATIENT, LEVEL IV Diagnosis: Essential (primary) hypertension[ICD10: I10] Diagnosis: Functional diarrhea[ICD10: K59.1] Diagnosis: Epigastric pain[ICD10: R10.13] Tessa George MD [facility] CPT- 4: 58296 06/19/2017 ([id number]) 32886 EST. PATIENT, LEVEL IV Diagnosis: Essential (primary) hypertension[ICD10: I10] Diagnosis: Epigastric pain[ICD10: R10.13] Tessa George MD, [facility] CPT- 4: 15092 02/13/2017 40921 EST. PATIENT, LEVEL IV Diagnosis: Low back pain[ICD10: M54.5] Brooke George MD, [facility] CPT-4 : 69203 02/05/2017 36239 EST. PATIENT, LEVEL IV Diagnosis: Dysuria[ICD10: R30.0] Diagnosis: Low back pain[ICD10: M54.5] Brooke George MD, [facility] CPT-4 : 21525 02/02/2017 ([id number]) 63370 EST. PATIENT, LEVEL IV Diagnosis: Essential (primary) hypertension[ICD10: I10] Diagnosis: Dysuria[ICD10: R30.0] Diagnosis: Tobacco use[ICD10: Z72.0] Tessa George MD, [facility] CPT-4: 02323 12/12/2016 53501 EST. PATIENT, LEVEL IV Diagnosis: Other acute sinusitis[ICD10: J01.80] Diagnosis: Other allergic rhinitis[ICD10: J30.89] Brooke George MD, [facility] CPT-4: 99120 06/21/2016 ([id number]) 61374 EST. PATIENT, LEVEL III Diagnosis: Essential (primary) hypertension[ICD10: I10] Diagnosis: Major depressive disorder, single episode, unspecified[ICD10: F32.9] Tessa George MD, [facility] CPT-4: 67006 05/24/2016 ([id number]) 47110 EST. PATIENT, LEVEL IV Diagnosis: Essential (primary) hypertension[ICD10: I10] Diagnosis: Major depressive disorder, single episode, unspecified[ICD10: F32.9] Diagnosis: Tobacco use[ICD10: Z72.0] Tessa George MD, [facility] CPT-4: 33705 02/02/2016 ([id number]) 96500 EST. PATIENT, LEVEL IV Diagnosis: Essential (primary) hypertension[ICD10: I10] Diagnosis: Polymyalgia rheumatica[ICD10: M35.3] Diagnosis: Major depressive disorder, single episode, unspecified[ICD10: F32.9] Tessa George MD, [facility] CPT-4: 60539 11/03/2015 ([id number]) Miscellaneous no charge Diagnosis: Hyperpigmented skin lesion[ICD9: 709.00] Tessa George MD [facility] CPT-4: 17715 02/12/2015 ([id number]) 78049 EST. PATIENT, LEVEL IV Diagnosis: ESSENTIAL HYPERTENSION[ICD9: 401.9] Diagnosis: DEPRESSIVE DISORDER NEC[ICD9: 311] Diagnosis: POLYMYALGIA RHEUMATICA[ICD9: 725] Tessa George MD, [facility] CPT-4: 74780 01/25/2015 ([id number]) 00240 EST. PATIENT, LEVEL IV Diagnosis: ESSENTIAL HYPERTENSION[ICD9: 401.9] Diagnosis: Polymyalgia rheumatica syndrome[ICD9: 725] Diagnosis: Smoking[ICD9: 305.1] Tessa George MD, [facility] CPT-4: 37436 11/26/2014 ([id number]) 68374 EST. PATIENT, LEVEL III Diagnosis: ESSENTIAL HYPERTENSION[ICD9: 401.9] Diagnosis: Sacroiliitis[ICD9: 720.2] Tessa George MD, [facility] CPT-4: 95796 09/15/2014 ([id number]) 09872 EST. PATIENT, LEVEL III Diagnosis: Hip pain[ICD9: 719.45] Diagnosis: Sacroiliac pain[ICD9: 724.6] Tessa George MD, [facility] CPT- 4: 41292 08/13/2014 ([id number]) 87758 EST. PATIENT, LEVEL III Diagnosis: ACUTE SINUSITIS[ICD9: 461.9] Diagnosis: ALLERGIC RHINITIS[ICD9: 477.9] Aviva George MD, [facility] CPT-4: 16425 08/03/2014 ([id number]) 25554 EST. PATIENT, LEVEL IV Diagnosis: ESSENTIAL HYPERTENSION[ICD9: 401.9] Diagnosis: DEPRESSIVE DISORDER NEC[ICD9: 311] Diagnosis: POLYMYALGIA RHEUMATICA[ICD9: 725] Tessa George MD, [facility] CPT-4: 87703 07/23/2014 ([id number]) 69585 EST. PATIENT, LEVEL IV Diagnosis: ESSENTIAL HYPERTENSION[ICD9: 401.9] Diagnosis: DEPRESSIVE DISORDER NEC[ICD9: 311] Diagnosis: POLYMYALGIA RHEUMATICA[ICD9: 725] Diagnosis: VACCIN FOR INFLUENZA[ICD10: Z23] Tessa George MD [facility] CPT-4: 50531 06/29/2014 ([id number]) 29495 EST. PATIENT, LEVEL III Diagnosis: ACUTE MAXILLARY SINUSITIS[ICD9: 461.0] Diagnosis: BPPV (benign paroxysmal positional vertigo)[ICD9: 386.11] Aviva George MD , [facility] CPT-4: 58940 04/27/2014 ([id number]) 85830 EST. PATIENT, LEVEL III Diagnosis: ESSENTIAL HYPERTENSION[SNOMED: 86617470] Diagnosis: Fatigue[ICD9: 780.79] Diagnosis: DEPRESSIVE DISORDER NEC[ICD9: 311] Tessa George MD [facility] CPT-4: 97053 01/28/2014 ([id number]) 08022 EST. PATIENT, LEVEL III Diagnosis: ESSENTIAL HYPERTENSION[SNOMED: 80629469] Diagnosis: Blurry vision, bilateral[ICD9: 368.8] Tessa George MD [facility] CPT-4: 09519 01/05/2014 ([id number]) 06931 EST. PATIENT, LEVEL IV Diagnosis: POLYMYALGIA RHEUMATICA[ICD9: 725] Diagnosis: PAIN IN LIMB[ICD9: 729.5] Diagnosis: ESSENTIAL HYPERTENSION[SNOMED: 11439186] Tessa George MD [facility] CPT-4: 03773 11/17/2013 ([id number]) 24940 EST. PATIENT, LEVEL III Diagnosis: Polymyalgia rheumatica syndrome[ICD9: 725] Tessa George MD [facility] CPT-4: 77291 08/27/2013 ([id number]) 44576 EST. PATIENT, LEVEL III Diagnosis: ESSENTIAL HYPERTENSION[SNOMED: 71775345] Diagnosis: Fatigue[ICD9: 780.79] Tessa George MD, [facility] CPT-4: 21172 08/21/2013 ([id number]) 37333 EST. PATIENT, LEVEL III Diagnosis: Urinary tract infection[ICD9: 599.0] Diagnosis: ESSENTIAL HYPERTENSION[SNOMED: 16160200] Aviva George MD, [facility] CPT-4: 31665 08/18/2013 ([id number]) 99571 EST. PATIENT, LEVEL IV Diagnosis: ESSENTIAL HYPERTENSION[SNOMED: 30897301] Diagnosis: HEMATURIA NOS[ICD9: 599.70] Diagnosis: CHRONIC INTERSTITIAL CYSTITIS[ICD9: 595.1] Tessa George MD [facility] CPT-4: 19485 04/29/2013 ([id number]) 93450 EST. PATIENT, LEVEL III Diagnosis: Recurrent urinary tract infection[ICD9: 599.0] Diagnosis: DYSURIA[ICD9: 788.1] Tessa George MD [facility] CPT-4: 50343 03/24/2013 ([id number]) 91217 EST. PATIENT, LEVEL IV Diagnosis: ESSENTIAL HYPERTENSION[SNOMED: 81883949] Diagnosis: HYPERLIPIDEMIA[ICD9: 272.4] Diagnosis: Irritated nevus of neck[ICD9: 216.4] Tessa George MD [facility] CPT-4: 59740 02/06/2013 ([id number]) 85111 EST. PATIENT, LEVEL III Diagnosis: ACUTE MAXILLARY SINUSITIS[ICD9: 461.0] Diagnosis: ACUTE URI[ICD9: 465.9] Diagnosis: COUGH[ICD9: 786.2] Tessa George MD [facility] CPT-4: 11960 11/05/2012 ([id number]) 64066 EST. PATIENT, LEVEL III Diagnosis: ESSENTIAL HYPERTENSION[SNOMED: 49223438] Diagnosis: ILL-DEFINE CONDITION NEC[ICD9: 799.89] Tessa George MD [facility] CPT-4: 82925 10/31/2012 ([id number]) 26982 EST. PATIENT, LEVEL III Diagnosis: ESSENTIAL HYPERTENSION[SNOMED: 90733738] Tessa George MD [facility] CPT-4: 18995 09/03/2012 ([id number]) 13462 EST. PATIENT, LEVEL III Diagnosis: UTI[ICD9: 599.0] Diagnosis: Microscopic hematuria[ICD9: 599.72] Diagnosis: ESSENTIAL HYPERTENSION[SNOMED: 78023613] Tessa George MD [facility] CPT-4: 65288 08/20/2012 ([id number]) 43699 EST. PATIENT, LEVEL IV Diagnosis: Constipation - functional[ICD9: 564.09] Diagnosis: Abdominal pain[ICD9: 789.00] Tessa George MD [facility] CPT- 4: 93972 07/16/2012 ([id number]) 23121 EST. PATIENT, LEVEL IV Diagnosis: ESSENTIAL HYPERTENSION[SNOMED: 98319882] Diagnosis: Fatigue[ICD9: 780.79] Diagnosis: Constipation - functional[ICD9: 564.09] Tessa George MD [facility] CPT-4: 50796 07/01/2012 ([id number]) 28593 EST. PATIENT, LEVEL III Diagnosis: ESSENTIAL HYPERTENSION[SNOMED: 96291950] Diagnosis: HEADACHE[ICD9: 784.0] Tessa George MD [facility] CPT-4: 89930 05/08/2012 44761 EST. PATIENT, LEVEL IV Diagnosis: Urinary tract infection[ICD9: 599.0] Diagnosis: ESSENTIAL HYPERTENSION[SNOMED: 05161209] Diagnosis: Fatigue[ICD9: 780.79] Tessa George MD [facility] CPT-4: 00278 04/19/2012 ([id number]) 51346 EST. PATIENT, LEVEL IV Diagnosis: ESSENTIAL HYPERTENSION[SNOMED: 95841481] Diagnosis: Mouth dryness[ICD9: 527.7] Diagnosis: HEADACHE[ICD9: 784.0] Diagnosis: CERVICALGIA[ICD9: 723.1] Tessa George MD [facility] CPT-4: 67208 04/15/2012 ([id number]) 10653 EST. PATIENT, LEVEL IV Diagnosis: Urinary tract infection[ICD9: 599.0] Diagnosis: Generally unwell[ICD9: 799.89] Diagnosis: ESSENTIAL HYPERTENSION[SNOMED: 09031392] Diagnosis: MYALGIA AND MYOSITIS[ICD9: 729.1] Tessa George MD [facility] CPT-4: 97944 04/04/2012 ([id number]) 59214 EST. PATIENT, LEVEL IV Diagnosis: ESSENTIAL HYPERTENSION[SNOMED: 06551162] Diagnosis: Unsteady gait[ICD9: 781.2] Diagnosis: Neck pain[ICD9: 723.1] [facility] CPT-4: 29009 04/01/2012 ([id number]) Patient admitted to the hospital from clinic (NO CHARGE) Diagnosis: Pericardial rub[ICD9: 785.3] Diagnosis: ESSENTIAL HYPERTENSION[SNOMED: 60271143] Diagnosis: HEADACHE[ICD9: 784.0] Diagnosis: Arm pain[ICD9: 729.5] [facility] CPT-4: 58351V 03/20/2012 Plan of Care Planned Activity Notes Codes Status Date Visit Plan: Allergic Reaction/Hives - discussed diagnosis with patient, need to avoid allergen, and when/if the patient should go to the emergency room. Pt was instructed to take benadryl 25mg q 6 hours x 48 hours, and pepcid 20mg bid x 48 hours, pt also given RX for prednisone taper. 12/06/2018 Appointment: Brooke Dominguez WPtel: [id number] (15 min) Moderate 12/06/2018 Patient Education: Patient [...] not improve. 11/25/2018 Appointment: [facility] ([facility] min) Moderate 11/25/2018 Patient Education: Patient [...] better by sunday10/14/2018 Appointment: Tessa George WPtel: [facility]5 [facility] (15 min) Moderate 10/14/2018 Patient Education: Patient Medication Summary Completed 10/14/2018 Appointment: Tessa George WPtel: [facility]5 [id number] (15 min) Moderate 09/24/2018 Visit Plan: Medicare [...] care surrogate. 09/02/2018 Appointment: Brooke Dominguez WPtel: [facility] - Annual Wellness Visit 09/02/2018 Patient Education: Patient Medication Summary Completed 09/02/2018 Appointment: Mihir 06/18/2018 Patient Education: Patient Medication Summary Completed [...] monitor symptoms. 05/21/2018 Appointment: Tessa George WPtel: [id number] (15 min) Moderate 05/21/2018 Patient Education: Patient Medication Summary Completed 05/21/2018 Visit Plan: tick bite - rx for doxycycline - and use benadryl cream on the tick bites to help decrease itching 03/04/2018 Appointment: Tessa George WPtel: [phone] [id number] (15 min) Moderate 03/04/2018 Patient Education: Patient [...] cessation strategies. 01/22/2018 Appointment: Tessa George WPtel: [phone] [id number] (15 min) Moderate 01/22/2018 Patient Education: Patient [...] not resolved. 10/22/2017 Appointment: Tessa George WPtel: [phone] [id number] (15 min) Moderate 10/22/2017 Patient Education: Patient [...] prednisone taper. 08/15/2017 App[facility]ment[phone] ([facility]) Complex 08/15/2017 Patient Education: Patient [...] at home. 06/19/2017 App[facility]ment[facility] ([facility]) Moderate 06/19/2017 Patient Education: Patient [...] the abdomen 02/13/2017 Appointment: [phone] [place] (15 min) Moderate 02/13/2017 Patient Education: [...] not improve. 02/05/2017 Appointment: Brooke Dominguez WPtel: [phone] (15 min) Moderate 02/05/2017 Patient Education: Patient [...] not improve. 02/02/2017 Appointment: Brooke Dominguez WPtel: [facility] (15 min) Moderate 02/02/2017 Patient Education: Patient [...] of stopping. 12/12/2016 Appointment: Tessa George WPtel: [phone] [facility] [place] (15 min) Moderate 12/12/2016 Patient Education: Patient [...] allergy spray. 06/21/2016 Appointment: Aviva Patton WPtel: [address] [place], [place] [phone] (15 min) Moderate 06/21/2016 Patient Education: Patient [...] 02/02/2015 Appointment: T[phone] [facility] Procedure 02/02/2015 Patient Education: Patient Medication [...] another smoker. 11/26/2014 Appointment: Tessa George WPtel: [address] [place], [place] [phone] Follow up 11/26/2014 Patient Education: Patient Medication [...] at home. 09/15/2014 Appointment: Tessa George WPtel: [address] [place], [place] [phone] Follow up 09/15/2014 Patient Education: Patient Medication Summary Completed 09/15/2014 Visit Plan: Hip pain - stat xray right hip - antiinflammatories. Pt to use heat to hip, monitor symptoms - and pt to call if not improving, pt to be called with hip xray report. 08/13/2014 Appointment: Tessa George WPtel: [address] [place], [place] [phone] Sick 08/13/2014 Patient Education: Patient Medication Summary [...] daily. 07/23/2014 Appointment: [phone] Follow [facility] 07/23/2014 Patient Education: Patient Medication [...] shot today 06/29/2014 Appointment: [phone] Follow up 06/29/2014 Patient Education: Patient Medication [...] on cymbalta. 01/28/2014 Appointment: Tessa George WPtel: [address] [place], [place] [phone] Follow up 01/28/2014 Patient Education: Patient Medication [...] Dr. Benites. 01/05/2014 Appointment: Tessa George WPtel: [facility] [place] [place] Follow up 01/05/2014 Patient Education: Patient Medication Summary Completed 01/05/2014 Patient Education: Hypertension Completed 01/05/2014 Appointment: Tessa George WPtel: [facility] [place] [place] Follow up 11/27/2013 Visit Plan: Hypertension [...] for pain 11/17/2013 Appointment: T[phone] Other 11/17/2013 Patient Education: Patient Medication Summary Completed 11/17/2013 Patient Education: Hypertension Completed 11/17/2013 Appointment: Tessa George WPtel: [facility] [place] Lab Draw 10/29/2013 Visit Plan: Polymyalgia Rheumatica [...] side effects. 08/27/2013 Appointment: [facility] Follow [facility] 08/27/2013 Patient Education: Patient Medication [...] improve. 08/18/2013 Appointment: [phone] [place] Other 08/18/2013 Patient Education: Patient Medication Summary Completed 08/18/2013 Patient Education: Hypertension Completed 08/18/2013 Appointment: [facility]iva Pat[phone] [place] Injection 07/31/2013 Patient Education: Patient Medication Summary Completed 07/31/2013 Appointment: [phone] [place] Injection 07/23/2013 Patient Education: Patient [...] of dysuria. 04/29/2013 Appointment: Tessa George WPtel: [facility] [place] Follow up 04/29/2013 Patient Education: Patient Medication Summary Completed 04/29/2013 Patient Education: Hypertension Completed 04/29/2013 App[facility]ment: [facility] [facility] 04/14/2013 Patient Education: Patient Medication Summary Completed 04/14/2013 Visit Plan: DYSURIA - WITH RECURRENT UTI - WILLGIVE ANTIBIOTIC AND REFER PT TO SEE DR. CHOW ABOUT RECTOCELE AND CYSTOCELE. 03/24/2013 Appointment: Tessa George WPtel: [address] [place], [place] [phone] Other 03/24/2013 Patient Education: Patient Medication Summary [...] silver nitrate. 02/06/2013 Appointment: Tessa George WPtel: [facility] [place] Follow up 02/06/2013 Patient Education: Patient Medication Summary Completed 02/06/2013 Patient Education: Hypertension Completed 02/06/2013 Visit Plan: Sinusitis - Pt has acute infection - pain in face, maxillary region, Pt informed to use decongestant, RX given to patient, sinus rinses also recommended. Call if symptoms do not show improvement. 11/05/2012 Appointment: Tessa George WPtel: [phone] [facility] [place] Other 11/05/2012 Patient Education: Patient Medication Summary [...] call clinic. 10/31/2012 Appointment: Tessa George WPtel: [facility] [place] Follow up 10/31/2012 Patient Education: Patient Medication [...] Ordoñez 09/25/2012 Appointment: T[phone] [place] Follow up 09/25/2012 Patient Education: Patient Medication [...] home. 09/03/2012 Appointment: T[phone] [place] Follow up 09/03/2012 Patient Education: Patient Medication [...] for review. 08/20/2012 Appointment: Aviva Patton [facility]Ptel[phone] [place] Follow up 08/20/2012 Patient Education: Patient Medication [...] on miralax 07/16/2012 Appointment: Aviva Patton WPtel: [phone] [id number] Sick 07/16/2012 Patient Education: Patient Medication Summary [...] kn benefiber 07/01/2012 Appointment: Tessa George WPtel: [phone] [facility] [place] Follow up 07/01/2012 Patient Education: Patient Medication [...] in stopping. 05/08/2012 Appointment: Tessa George WPtel: [facility] [place] [phone] [facility] 05/08/2012 Patient Education: Patient Medication [...] acute concerns. 04/19/2012 Appointment: Aviva Patton WPtel: [id number] Other 04/19/2012 Patient Education: Patient Medication Summary [...] the coreg. 04/15/2012 Appointment: Tessa George [facility]Ptel[facility] Follow up 04/15/2012 Patient Education: Patient Medication Summary Completed 04/15/2012 Patient Education: High Blood Pressure: Essential Hypertension Completed 2011 Appointment: eTssa George [facility]Ptel[facility] [place] Lab Draw 04/08/2012 Visit Plan: UTI - [...] the medication. 04/04/2012 Appointment: Tessa George WPtel: [phone] [facility] [place] Other 04/04/2012 Patient Education: Patient Medication Summary [...] 3.125mg bid 04/01/2012 Appointment: Tessa George WPtel: [phone] [facility] [place] Other 04/01/2012 Patient Education: Patient Medication Summary Completed 04/01/2012 Patient Education: High Blood Pressure: Essential Hypertension Completed 2011 Visit Plan: Pericardial oom-GGD-Zoxhiral-arm pain-history of shingles-Dr. George in to evaluate [...] AND EVALUATION OF THE ACUTE ILLNESS. Pericardial zmr-GRU-Aypoqhcy-arm pain-history of sarahes- Dr. George in to evaluate patient-plan to admit for further work up and close monitoring. Plan to get labs STAT including a cardiac panel. A stat echo has also been ordered as well with cardiology consult. 03/20/2012 Appointment: Abdi Aviva WPtel: [phone] [phone] [place] Other 03/20/2012 Patient Education: Patient Medication Summary Completed 03/20/2012 Patient Education: High Blood Pressure: Essential Hypertension Completed 2011 Appointment: Aviva Patton WPtel: [phone] [phone] Other 08/30/2011 Instructions Comment . Hypertension - [...] for cymbalta 60mg daily. . Hypertension - well controlled - continue [...] improved - monitor symptoms. . Hypertension - uncontrolled - the patient's [...] hand for voltaren gel. . Hypertension - not quite optimally controlled [...] medications. Polymyalgia - continue with cymbalta . Medicare Exam - today we discussed [...] of breath she is to call clinic. Nasal spray- use twice daily, one spray [...] Call if symptoms do not show improvement. take benadryl 25mg every 6 hours x [...] also given RX for prednisone taper. . Ongoing flank/low back pain - will [...] change in blood pressure readings at home. hold the flexeril start on the LEVSIN [...] remove the sutures in 2 weeks. . Headache - Start on the Naprosyn [...] improved - continue with the coreg. . Hypertension - well controlled - continue [...] to take prn Aleve for pain . Hypertension - well controlled - continue [...] have recommended that pt see Dr. Benites. toprol 1/2 pill twice daily. Hypertension - [...] call if symptoms do not improve. . UTI - pt with positive urinalysis [...] readings at home. flu shot today . Pericardial sgb-LIH-Futrwlyb-arm pain-history of shingles -Dr. George in to [...] AND EVALUATION OF THE ACUTE ILLNESS. Pericardial omw-YUB-Bjrsrrsr-arm pain-history of shingles-Dr. George in to evaluate [...] Recommended pt to start kn benefiber . STOP THE DOXYCYCLINE, START ON CIPROFLOXACIN [...]
--- OUTSIDE RECORDS SUMMARY | 2019-01-26 14:33 | XMS REPORT | CCD ---
Author Author Aviva Patton Organization Tessa George MD, [facility] Address [address] [place] [address] Phone Care Team Providers Care Mosaic Floor Layer Name Role Phone Tessa George PP Unavailable CCM Unavailable Summary Purpose Interface Exchange Insurance Providers Payer name Policy type / Coverage type Covered constitution party ID Effective Begin Date Effective End Date WPS Medicare Part B Medicare Part B [id number] Unknown FOR LIFE WPS Medicare Part B [id number] Unknown Family history Mother Diagnosis Age At Onset Myocardial infarction Unknown Father Diagnosis Age At Onset Cancer Unknown bladder cancer Unknown Myocardial infarction Unknown Brother Diagnosis Age At Onset Myocardial infarction Unknown Social History Social History Element Codes Description Effective Dates Marital status Unknown 02/02/[address]: 13386019 Current every day smoker 02/02/2016 Number of children Unknown 2 sons living and well 03/20/2012 Living arrangements Unknown House 03/20/2012 Employment Unknown Retired 03/20/2012 Number of years using tobacco Unknown 40 03/20/2012 Number of cigarettes/day Unknown 10 ( Half a pack) 03/20/[address]: 114233465 Never drinks alcohol 03/20/2012 Allergies, Adverse Reactions, Alerts Substance Reaction Codes Entered Date Inactivated Date Status levaquin tendonitis Unknown 12/06/2018 No Inactive Date Active * NO KNOWN FOOD ALLERGIES Unknown 07/01/2012 No Inactive Date Active cephalexin RxNorm: 2231 04/19/2012 No Inactive Date Active AUGMENTIN angioedema, RxNorm: 855874 12/06/2018 No Inactive Date Active SULFA(SULFONAMIDE ANTIBIOTICS) [...] Toprol XL 25 mg tablet,extended release RxNorm: 255198 TAKE 1 TABLET TWICE A DAY 12/09/2018 No Stop Date Active Cymbalta 60 mg capsule,delayed release RxNorm: 285966 TAKE 1 CAPSULE DAILY 12/09/2018 No Stop Date Active prednisone 20 mg tablet RxNorm: 603495 2 Tablet(s) PO daily 12/10/2018 Active Kenalog 40 mg/mL suspension for injection RxNorm: 0521469 1.5 Milliliter(s) Inj 12/06/2018 12/06/2018 Inactive Augmentin 875 mg-125 mg tablet RxNorm: 205865 1 Tablet(s) PO BID 11/26/2018 12/02/2018 Inactive Levaquin 500 mg tablet RxNorm: 623909 1 Tablet(s) PO daily 08/201911/29/2018 Inactive furosemide 20 mg tablet RxNorm: 719682 TAKE 1 TABLET DAILY No Stop Date Active Augmentin 875 mg-125 mg tablet RxNorm: 851981 1 Tablet(s) PO BID 10/14/2018 10/23/2018 Inactive doxycycline hyclate 100 mg tablet RxNorm: 490994 1 Tablet(s) PO BID 03/04/2018 03/10/2018 Inactive Pepcid AC 20 mg tablet RxNorm: 822832 1 Tablet(s) PO BID 201704/16/2019 Active pt requested a 90 day supply please Pepcid AC 20 mg tablet RxNorm: 599997 1 Tablet(s) PO BID 201701/21/2018 Inactive Pepcid AC 20 mg tablet RxNorm: 829413 1 Tablet(s) PO BID 201701/17/2018 Inactive Pepcid AC 20 mg tablet RxNorm: 916811 1 Tablet(s) PO BID 201712/18/2017 Inactive Flagyl 500 mg tablet RxNorm: 697304 1 Tablet(s) PO TID 201712/28/2017 Inactive Cymbalta 60 mg capsule,delayed release RxNorm: 846846 1 CAPSULE(S) PO DAILY 1 CAPSULE(S) PO DAILY 12/14/2017 12/08/2018 Inactive Toprol XL 25 mg tablet,extended release RxNorm: 212093 1 TABLET(S) PO BID 12/14/2017 12/08/2018 Inactive furosemide 20 mg tablet RxNorm: 637013 TAKE 1 TABLET DAILY 11/06/2018 Inactive Kenalog 40 mg/mL suspension for injection RxNorm: 8072093 1.5 Milliliter(s) Inj 08/15/2017 08/15/2017 Inactive triamcinolone acetonide 0.025 % topical cream RxNorm: 2406915 1 Application TOP BID as needed 08/15/2017 08/19/2017 Inactive prednisone 20 mg tablet RxNorm: 731305 2 Tablet(s) PO daily 10/201608/19/2017 Inactive Flagyl 500 mg tablet RxNorm: 134785 1 Tablet(s) PO TID 201608/10/2017 Inactive Flagyl 500 mg tablet RxNorm: 457190 1 Tablet(s) PO TID 201607/31/2017 Inactive Questran 4 gram powder for susp in a packet RxNorm: 931023 1/2 packet PO QID 06/19/2017 01/14/2018 Inactive Levsin/SL 0.125 mg sublingual tablet RxNorm: 5698235 1 Tablet(s) SL QID as needed abdominal pain or abdominal spasms 02/13/2017 08/19/2017 Inactive cyclobenzaprine 5 mg tablet RxNorm: 421099 1 Tablet(s) PO TID as needed 02/08/2017 02/12/2017 Inactive cyclobenzaprine 5 mg tablet RxNorm: 577091 1 Tablet(s) PO TID as needed 02/05/2017 02/07/2017 Inactive Cipro 250 mg tablet RxNorm: 763792 1 Tablet(s) PO BID 201602/11/2017 Inactive Cymbalta 60 mg capsule,delayed release RxNorm: 558589 1 Capsule(s) PO daily 1 CAPSULE(S) PO DAILY 12/18/2016 12/12/2017 Inactive Toprol XL 25 mg tablet,extended release RxNorm: 321167 1 Tablet(s) PO BID 12/18/2016 12/12/2017 Inactive [SAVINGS FOR NON-COVERED DRUGS -- BIN:098634, PCN: ASPROD1, Group: XXXXX, ID# [id number], Questions: . THIS IS NOT INSURANCE.] ciprofloxacin 500 mg tablet RxNorm: 414435 1 Tablet(s) PO BID 12/12/2016 12/17/2016 Inactive furosemide 20 mg tablet RxNorm: 478392 TAKE 1 TABLET DAILY 12/201611/11/2017 Inactive levofloxacin 500 mg tablet RxNorm: 870135 1 Tablet(s) PO daily 06/21/2016 06/25/2016 Inactive Kenalog 40 mg/mL suspension for injection RxNorm: 5636784 Milliliter(s) Inj 06/21/2016 06/21/2016 Inactive hydrocodone 5 mg-acetaminophen 325 mg tablet RxNorm: 645398 1-2 Tablet(s) PO Q4- 6H as needed 11/03/2015 02/01/2016 Inactive Cymbalta 60 mg capsule,delayed release RxNorm: 377273 1 Capsule(s) PO daily 1 CAPSULE(S) PO DAILY 11/03/2015 12/17/2016 Inactive furosemide 20 mg tablet RxNorm: 990115 Tablet(s) TAKE 1 TABLET ONCE DAILY 11/03/2015 11/16/2016 Inactive Toprol XL 25 mg tablet,extended release RxNorm: 860976 2 Tablet(s) PO daily 11/03/2015 12/17/2016 Inactive [SAVINGS FOR NON-COVERED DRUGS -- BIN:100161, PCN: ASPROD1, Group: XXXXX, ID# [id number], Questions: . THIS IS NOT INSURANCE.] Cymbalta 60 mg capsule,delayed release RxNorm: 522271 1 Capsule(s) PO daily 1 CAPSULE(S) PO DAILY 05/31/2015 11/02/2015 Inactive Toprol XL 25 mg tablet,extended release RxNorm: 860581 2 Tablet(s) PO daily 01/25/2015 11/02/2015 Inactive [SAVINGS FOR NON-COVERED DRUGS -- BIN:980345, PCN: ASPROD1, Group: XXXXX, ID# [id number], Questions: . THIS IS NOT INSURANCE.] Voltaren 1 % topical gel RxNorm: 252061 2 Gram(s) TOP QID to hands 01/25/2015 05/24/2015 Inactive [SAVINGS FOR NON-COVERED DRUGS -- BIN:743619, PCN: ASPROD1, Group : XXXXX, ID# [id number], Questions: . THIS IS NOT INSURANCE.] furosemide 20 mg tablet RxNorm: 173777 TAKE 1 TABLET ONCE DAILY 12/17/2014 11/02/2015 Inactive Kenalog 40 mg/mL suspension for injection RxNorm: 2574723 2 Milliliter(s) Inj UD 09/17/2014 09/17/2014 Inactive [SAVINGS FOR UNINSURED PATIENTS -- BIN:599243, PCN: ASPROD1, Group: AME08, ID# [id number], Process claim through MedImpact, for questions: . THIS IS NOT INSURANCE.] Levaquin 500 mg tablet RxNorm: 117515 1 Tablet(s) PO daily 08/16/2014 Inactive [SAVINGS FOR UNINSURED PATIENTS -- BIN:625832, PCN: ASPROD1, Group: AME08 , ID# [id number], Process claim through MedImpact, for questions: . THIS IS NOT INSURANCE.] Kenalog 40 mg/mL suspension for injection RxNorm: 2156510 Milliliter(s) Inj 08/03/2014 08/03/2014 Inactive [SAVINGS FOR UNINSURED PATIENTS -- BIN:525824, PCN: ASPROD1, Group: AME08, ID# [id number], Process claim through MedImpact, for questions: . THIS IS NOT INSURANCE.] azithromycin 500 mg tablet RxNorm: 454230 1 Tablet(s) PO UD 08/02/2014 Inactive dispense a zpack azithromycin 500 mg tablet RxNorm: 021135 1 Tablet(s) PO daily 08/03/2014 08/07/2014 Inactive 1 tab daily Cymbalta 60 mg capsule,delayed release RxNorm: 837784 1 Capsule(s) PO daily 07/23/2014 05/31/2015 Inactive [SAVINGS FOR UNINSURED PATIENTS -- BIN:720146, PCN: ASPROD1, Group: AME08, ID# [id number], Process claim through MedImpact, for questions: . THIS IS NOT INSURANCE.] Kenalog 40 mg/mL suspension for injection RxNorm: 6981572 1 1/2 Milliliter(s) Inj 04/27/2014 04/27/2014 Inactive [SAVINGS FOR UNINSURED PATIENTS -- BIN:777005, PCN: ASPROD1, Group: AME08, ID# [id number], Process claim through MedImpact, for questions: . THIS IS NOT INSURANCE.] meclizine 25 mg tablet RxNorm: 908415 1 Tablet(s) PO Q6 PRN 05/26/2014 Inactive [SAVINGS FOR UNINSURED PATIENTS -- BIN:104458, PCN: ASPROD1, Group: AME08 , ID# [id number], Process claim through MedICazoodle, for questions: . THIS IS NOT INSURANCE.] Levaquin 500 mg tablet RxNorm: 487806 1 Tablet(s) PO daily 05/03/2014 Inactive [SAVINGS FOR UNINSURED PATIENTS -- BIN:261889, PCN: ASPROD1, Group: AME08 , ID# [id number], Process claim through MedImpact, for questions: . THIS IS NOT INSURANCE.] Cymbalta 30 mg capsule,delayed release RxNorm: 885194 1 Capsule(s) PO daily 03/25/2014 07/22/2014 Inactive Cymbalta 30 mg capsule,delayed release RxNorm: 448619 1 Capsule(s) PO daily 01/28/2014 03/24/2014 Inactive furosemide 20 mg tablet RxNorm: 544999 1 Tablet(s) PO daily TAKE 1 TABLET BY MOUTH ONCE DAILY. 12/22/2013 12/16/2014 Inactive Toprol XL 25 mg tablet,extended release RxNorm: 844639 1 Tablet(s) PO daily 12/22/2013 01/24/2015 Inactive furosemide 20 mg tablet RxNorm: 484366 Tablet(s) PO TAKE 1 TABLET BY MOUTH ONCE DAILY. 12/04/2013 12/21/2013 Inactive prednisone 10 mg tablet RxNorm: 703335 Tablet(s) PO 10/28/2013 11/16/2013 Inactive 60mg d x 4 [id number] daily x 4 [id number] daily x 4 [id number] daily x 8 days5 mg daily x 8 day2.5 mg daily x 8 days2.5 mg qod x 8 doses then stop Toprol XL 25 mg tablet,extended release RxNorm: 804383 1 Tablet(s) PO daily 08/27/2013 12/21/2013 Inactive Macrobid 100 mg capsule RxNorm: 3182731 1 Capsule(s) PO BID 01/201308/24/2013 Inactive Influenza Virus Vaccine 0.5 mL RxNorm: IM 07/23/2013 07/23/2013 Inactive levofloxacin 500 mg tablet RxNorm: 782682 1 Tablet(s) PO daily 04/29/2013 05/03/2013 Inactive amitriptyline 10 mg tablet RxNorm: 007193 1 Tablet(s) PO qhs prn 1/2 to one tablet at bedtime if needed for bladder spasms 04/29/2013 08/20/2013 Inactive Cipro 250 mg tablet RxNorm: 802684 1 Tablet(s) PO BID 201204/23/2013 Inactive Levaquin 500 mg tablet RxNorm: 997495 1 Tablet(s) PO daily 07/201303/30/2013 Inactive Levaquin 500 mg tablet RxNorm: 759349 1 Tablet(s) PO daily 07/201303/23/2013 Inactive furosemide 20 mg tablet RxNorm: 110986 Tablet(s) PO TAKE 1 TABLET BY MOUTH ONCE DAILY. 03/13/2013 12/03/2013 Inactive furosemide 20 mg tablet RxNorm: 812651 Tablet(s) PO TAKE 1 TABLET BY MOUTH ONCE DAILY. 12/09/2012 03/12/2013 Inactive azithromycin 500 mg tablet RxNorm: 224268 1 Tablet(s) PO daily 11/05/2012 11/14/2012 Inactive rohan prieto Kenalog 40 mg/mL Susp for Injection RxNorm: 9959796 2 Milliliter(s) Inj 11/05/2012 11/05/2012 Inactive Cipro 500 mg tablet RxNorm: 351477 1 Tablet(s) PO BID 201102/05/2013 Inactive furosemide 20 mg tablet RxNorm: 995264 Tablet(s) PO 09/09/2012 12/08/2012 Inactive TAKE 1 TABLET BY MOUTH ONCE DAILY. Toprol XL 25 mg tablet,extended release RxNorm: 943686 1 Tablet(s) PO daily this will replace the coreg 08/26/20122012 Inactive Cipro 500 mg tablet RxNorm: 342421 1 Tablet(s) PO BID 201108/26/2012 Inactive Miralax 17 gram Oral Powder Packet RxNorm: 071432 1 PO daily 07/16/2012 Inactive Miralax 17 gram Oral Powder Packet RxNorm: 461824 1 PO daily 08/10/2013 Inactive furosemide 20 mg tablet RxNorm: 162646 Tablet(s) PO 06/10/2012 09/08/2012 Inactive TAKE 1 TABLET BY MOUTH ONCE DAILY. naproxen 500 mg tablet RxNorm: 400156 1 Tablet(s) PO 201105/08/2012 Inactive Cipro 250 mg tablet RxNorm: 228609 1 Tablet(s) PO BID Take 2 tabs BID today then 1 tab BID for the next 5 days 04/19/2012 04/25/2012 Inactive ketorolac 10 mg Tab RxNorm: 292547 1 Tablet(s) PO TID 201104/17/2012 Inactive ketorolac 60 mg/2 mL IM RxNorm: 349754 Milliliter(s) IM 201104/04/2012 Inactive ketorolac 10 mg Tab RxNorm: 464810 1 Tablet(s) PO TID 201104/10/2012 Inactive ciprofloxacin 500 mg Tab RxNorm: 683162 1 Tablet(s) PO BID 04/13/2012 Inactive ciprofloxacin 500 mg Tab RxNorm: 350691 1 Tablet(s) PO BID 04/03/2012 Inactive Coreg 3.125 mg Tab RxNorm: 554358 1 Tablet(s) PO BID 201108/25/2012 Inactive furosemide 20 mg tablet RxNorm: 545716 1 Tablet(s) PO daily 09/09/2011 Inactive Toprol XL 25 mg tablet,extended release RxNorm: 853269 1 Tablet(s) PO daily No Start Date 08/25/2012 Inactive Caltrate 600 + D oral RxNorm: 360601 oral No Start Date 11/02/2015 Inactive hydroxychloroquine 200 mg tablet RxNorm: 536992 1 Tablet(s) PO BID from dr duncan No Start Date 01/27/2014 Inactive Cipro 500 mg tablet RxNorm: 766123 1/2 Tablet(s) PO daily No Start Date 08/18/2013 Inactive Centrum Silver Ultra Women's Tab RxNorm: 1 Tablet(s) PO daily No Start Date 02/01/2016 Inactive Influenza Virus Vaccine 0.5 mL RxNorm: IM No Start Date 02/02/2016 Inactive hydrocodone 5 mg-acetaminophen 325 mg tablet RxNorm: 004401 1-2 Tablet(s) PO Q4- 6H as needed No Start Date 11/02/2015 Inactive prednisone 10 mg tablet RxNorm: 083808 Tablet(s) PO 60mg daily x 3 days, 40mg daily x 3 days, 20mg daily x 3 days, 10mg daily x 3 days, 5mg daily x 3 days, 5mg QOD x 1 week No Start Date 10/27/2013 Inactive Medication Administered Medication Codes Instructions Start Date Status Kenalog 40 mg/mL suspension for injection RxNorm: 0003110 1.5Milliliter 12/06/2018 No longer Active Kenalog 40 mg/mL suspension for injection RxNorm: 8407777 1.5Milliliter 08/15/2017 No longer Active Kenalog 40 mg/mL suspension for injection RxNorm: 1700801 Milliliter 06/21/2016 No longer Active Kenalog 40 mg/mL suspension for injection RxNorm: 7103107 2MilliliterUD 09/17/2014 No longer Active Kenalog 40 mg/mL suspension for injection RxNorm: 8735524 Milliliter 08/03/2014 No longer Active Kenalog 40 mg/mL suspension for injection RxNorm: 6452897 1 1/2Milliliter 04/27/2014 No longer Active Influenza Virus Vaccine 0.5 mL RxNorm: 07/23/2013 No longer Active Kenalog 40 mg/mL Susp for Injection RxNorm: 9471164 2Milliliter 11/05/2012 No longer Active ketorolac 60 mg/2 mL IM RxNorm: 359571 Milliliter 04/04/2012 No longer Active Immunizations Vaccine [...] (tract) infections ICD-10: Z87.440 ICD-9: V13.02 11/25/2018 Essential (primary) hypertension ICD-10: I10 ICD-9: 401.9 [...] hTSH II 2.26 uIU/mL 07/10/2017 Comp Metabolic Nne225 NA 140 mEq/L 07/10/2017 Comp Metabolic Uvh697 K 4.2 mEq/L 07/10/2017 Comp Metabolic Hbu159 CL 106 mEq/L 07/10/2017 Comp Metabolic Qpx938 CO2 26.0 mEq/L 07/10/2017 Comp Metabolic Whb813 ANION GAP 12 07/10/2017 Comp Metabolic Ref422 GLUCOSE 89 mg/dL 07/10/2017 Comp Metabolic Jos649 Creat 0.6 mg/dL 07/10/2017 Comp Metabolic Mzj862 eGFR 105 ml/min/1.73m2 07/10/2017 Comp Metabolic Iqy416 BUN 9 mg/dL 07/10/2017 Comp Metabolic Wxr354 B/C Ratio 15.0 Ratio 07/10/2017 Comp Metabolic Nyc168 CALCIUM 9.4 mg/dL 07/10/2017 Comp Metabolic Vvz513 ALK PHOS 90 U/L 07/10/2017 Comp Metabolic Jyg879 AST(SGOT) 15 U/L 07/10/2017 Comp Metabolic Geg244 ALT(SGPT) 14 U/L 07/10/2017 Comp Metabolic Xqt986 BILI T 0.5 mg/dL 07/10/2017 Comp Metabolic Isx587 ALBUMIN 4.0 g/dL 07/10/2017 Comp Metabolic Dzn504 TPRO 6.2 g/dL 07/10/2017 Comp Metabolic Syq809 GLOB 2.2 g/dL 07/10/2017 Comp Metabolic Zyg699 A/G Ratio 1.8 Ratio 07/10/2017 Comp Metabolic Elo745 Osmo 278 mOsmo 07/10/2017 Cbc With Differential Ord2 WBC 7.25 K/ul 07/10/2017 Cbc With Differential Ord2 RBC 4.52 M/ul 07/10/2017 Cbc With Differential Ord2 HGB 14.6 g/dl 07/10/2017 Cbc With Differential Ord2 Neut% 61.4 % 07/10/2017 Cbc With Differential Ord2 HCT 42.9 % 07/10/2017 Cbc With Differential Ord2 MCV 94.9 fl 07/10/2017 Cbc With Differential Ord2 Lymph% 30.2 % 07/10/2017 Cbc With Differential Ord2 MCH 32.3 pg 07/10/2017 Cbc With Differential Ord2 [place]% 6.2 % 07/10/2017 Cbc With Differential Ord2 MCHC 34.0 pg 07/10/2017 Cbc With Differential Ord2 Eos% 1.8 % 07/10/2017 Cbc With Differential Ord2 PLT 286 K/ul 07/10/2017 Cbc With Differential Ord2 Baso% 0.4 % 07/10/2017 Cbc With Differential Ord2 Neut ABS# 4.45 K/ul 07/10/2017 Cbc With Differential Ord2 RDW 13.7 % 07/10/2017 Cbc With Differential Ord2 Lymph ABS# 2.19 K/ul 07/10/2017 Cbc With Differential Ord2 [place] ABS# 0.5 K/ul 07/10/2017 Cbc With Differential Ord2 Eos ABS# 0.1 K/ul 07/10/2017 Cbc With Differential Ord2 Baso ABS# 0.0 K/ul 07/10/2017 Culture Urine [id number] URINE CULTURE SEE NOTES 02/05/2017 Urine Culture Ucult Complete >100,000 col/ml aerobic growth sent to ref lab 02/03/2017 Culture Urine [id number] URINE CULTURE SEE NOTES 12/18/2016 Culture Urine [id number] Continued Results 12/18/2016 Urine Culture Ucult Complete [...] 14.5 g/dl 02/03/2016 Cbc With Differential Ord2 Neut% 60.4 % 02/03/2016 Cbc With Differential Ord2 HCT 42.8 % 02/03/2016 Cbc With Differential Ord2 Lymph% 30.6 % 02/03/2016 Cbc With Differential Ord2 MCV 95.7 fl 02/03/2016 Cbc With Differential Ord2 [place]% 6.6 % 02/03/2016 Cbc With Differential Ord2 MCH 32.4 pg 02/03/2016 Cbc With Differential Ord2 Eos% 2.1 % 02/03/2016 Cbc With Differential Ord2 MCHC 33.9 pg 02/03/2016 Cbc With Differential Ord2 Baso% 0.3 % 02/03/2016 Cbc With Differential Ord2 PLT 270 K/ul 02/03/2016 Cbc With Differential Ord2 Neut ABS# 4.70 K/ul 02/03/2016 Cbc With Differential Ord2 RDW 14.0 % 02/03/2016 Cbc With Differential Ord2 Lymph ABS# 2.38 K/ul 02/03/2016 Cbc With Differential Ord2 [place] ABS# 0.5 K/ul 02/03/2016 Cbc With Differential Ord2 Eos ABS# 0.2 K/ul 02/03/2016 Cbc With Differential Ord2 Baso ABS# 0.0 K/ul 02/03/2016 Cbc With Differential Ord2 New Analyzer Notice Please note new ref ranges starting 10-27-2015 due to implemntation of new five part differential hematolgy analyzer. 02/03/2016 Comp Metabolic Nrk624 NA 136 mEq/L 02/03/2016 Comp Metabolic Xun299 K 4.0 mEq/L 02/03/2016 Comp Metabolic Yqc808 CL 102 mEq/L 02/03/2016 Comp Metabolic Lkt352 CO2 28.0 mEq/L 02/03/2016 Comp Metabolic Khs467 ANION GAP 10 02/03/2016 Comp Metabolic Jra153 GLUCOSE 85 mg/dL 02/03/2016 Comp Metabolic Tks405 Creat 0.7 mg/dL 02/03/2016 Comp Metabolic Eld374 eGFR 88 ml/min/1.73m2 02/03/2016 Comp Metabolic Uti230 BUN 15 mg/dL 02/03/2016 Comp Metabolic Vyf335 B/C Ratio 21.4 Ratio 02/03/2016 Comp Metabolic Iki786 CALCIUM 9.2 mg/dL 02/03/2016 Comp Metabolic Ymb921 ALK PHOS 81 U/L 02/03/2016 Comp Metabolic Aeb703 AST(SGOT) 19 U/L 02/03/2016 Comp Metabolic Zve128 ALT(SGPT) 22 U/L 02/03/2016 Comp Metabolic Ubf905 BILI T 0.5 mg/dL 02/03/2016 Comp Metabolic Phs513 ALBUMIN 4.1 g/dL 02/03/2016 Comp Metabolic Dal967 TPRO 6.4 g/dL 02/03/2016 Comp Metabolic Aso874 GLOB 2.3 g/dL 02/03/2016 Comp Metabolic Vtn948 A/G Ratio 1.8 Ratio 02/03/2016 Comp Metabolic Omh452 Osmo 272 mOsmo 02/03/2016 Tsh Ord6 hTSH II 1.61 uIU/mL 02/03/2016 CRP 9926546 CRP 1.8 MG/DL 08/21/2013 GFR CALC 2285318 GFR AA >60 ML/MIN 08/21/2013 GFR CALC 4601129 GFR NON-AA >60 ML/MIN 08/21/2013 CBC 7605434 WBC 9.0 10e9/L 08/21/2013 CBC 7686704 RBC 4.68 10e12/L 08/21/2013 CBC 2476899 HGB 15.0 g/dL 08/21/2013 CBC 9479293 HCT DET 43.8 % 08/21/2013 CBC 4169591 MCV 93.6 fL 08/21/2013 CBC 6570729 MCH 32.1 pg 08/21/2013 CBC 6572081 MCHC 34.2 g/dL 08/21/2013 CBC 2707419 PLT 267 10e9/L 08/21/2013 CBC 8860160 MPV 9.0 fL 08/21/2013 CBC 3127149 MARGE % 67.8 % 08/21/2013 CBC 4953722 LY % 24.8 % 08/21/2013 CBC 4674368 MON % 6.2 % 08/21/2013 CBC 9497397 EOS % 1.0 % 08/21/2013 CBC 8680090 BASO % 0.2 % 08/21/2013 CBC 0056777 RDW 13.1 % 08/21/2013 CBC 6959070 ABS MARGE 6.10 10e9/L 08/21/2013 CBC 4113409 ABS LYMPH 2.23 10e9/L 08/21/2013 CBC 7070382 ABS MONO 0.56 10e9/L 08/21/2013 CBC 2331292 ABS EOS 0.09 10e9/L 08/21/2013 CBC 3046306 ABS BASO 0.02 10e9/L 08/21/2013 CBC 2621998 RDW-SD 43.9 fL 08/21/2013 TSH 5556718 TSH 1.898 uIU/ML 08/21/2013 MAGNESIUM 6023797 MAGNESIUM 1.7 MEQ/L 08/21/2013 CHEM 14 20280418 AST 16 U/L 08/21/2013 CHEM 14 8108486 ALT 15 IU/L 08/21/2013 CHEM 14 4372715 BUN 14 MG/DL 08/21/2013 CHEM 14 1202002 ALBUMIN 4.4 GM/DL 08/21/2013 CHEM 14 1154201 CHLORIDE 103 MMOL/L 08/21/2013 CHEM 14 9634633 BILI TOT 0.6 MG/DL 08/21/2013 CHEM 14 1093929 ALK PHOS 80 U/L 08/21/2013 CHEM 14 4898455 SODIUM 138 MMOL/L 08/21/2013 CHEM 14 2606189 CREATININE 0.76 MG/DL 08/21/2013 CHEM 14 3336145 CALCIUM 10.2 MG/DL 08/21/2013 CHEM 14 9102471 POTASSIUM 4.0 MMOL/L 08/21/2013 CHEM 14 6717432 PROT TOT 7.0 GM/DL 08/21/2013 CHEM 14 1248889 GLUCOSE 95 MG/DL 08/21/2013 CHEM 14 9814038 BICARB 29 MMOL/L 08/21/2013 CHEM 14 0634325 ANION GAP 6 MEQ/L 08/21/2013 URINALYSIS NONAUTO W/O SCOPE 55541 Specific [place] 1.020 DateTime(Free Text in Aprima) URINALYSIS NONAUTO W/O SCOPE 71843 PH 5.0 DateTime(Free Text in Aprima) URINALYSIS NONAUTO W/O SCOPE 37669 GLUCOSE Negative DateTime(Free Text in Aprima) URINALYSIS NONAUTO W/O SCOPE 45348 Protein Negative DateTime(Free Text in Aprima) URINALYSIS NONAUTO W/O SCOPE 61884 Blood Mod. Blood DateTime( Free Text in Aprima) URINALYSIS NONAUTO W/O SCOPE 59028 Bilirubin Negative DateTime(Free Text in Aprima) URINALYSIS NONAUTO W/O SCOPE 85898 Ketones Negative DateTime(Free Text in Aprima) URINALYSIS NONAUTO W/O SCOPE 97813 Urobilinogen Negative DateTime(Free Text in Aprima) URINALYSIS NONAUTO W/O SCOPE 64121 Nitrite Negative DateTime(Free Text in Aprima) URINALYSIS NONAUTO W/O SCOPE 64052 Leukocytes Negative DateTime(Free Text in Aprima) URINALYSIS NONAUTO W/O SCOPE 84146 Specific [place] 1.010 DateTime(Free Text in Aprima) URINALYSIS NONAUTO W/O SCOPE 83567 PH 6.0 DateTime(Free Text in Aprima) URINALYSIS NONAUTO W/O SCOPE 23066 GLUCOSE neg DateTime( Free Text in Aprima) URINALYSIS NONAUTO W/O SCOPE 45365 Protein neg DateTime( Free Text in Aprima) URINALYSIS NONAUTO W/O SCOPE 30914 Blood 1+ DateTime(Free Text in Aprima) URINALYSIS NONAUTO W/O SCOPE 06977 Bilirubin neg DateTime(Free Text in Aprima) URINALYSIS NONAUTO W/O SCOPE 80931 Ketones neg DateTime( Free Text in Aprima) URINALYSIS NONAUTO W/O SCOPE 10849 Urobilinogen neg DateTime(Free Text in Aprima) URINALYSIS NONAUTO W/O SCOPE 12615 Nitrite neg DateTime( Free Text in Aprima) URINALYSIS NONAUTO W/O SCOPE 21948 Leukocytes 1+ DateTime(Free Text in Aprima) UA 73253 Specific [place] 1.005 DateTime(Free Text in Aprima ) UA 70141 PH 5 DateTime(Free Text in Aprima) UA 83116 GLUCOSE neg DateTime(Free Text in Aprima) UA 63754 Protein neg DateTime(Free Text in Aprima) UA 06551 Blood 1+ DateTime(Free Text in Aprima) UA 67319 Bilirubin neg DateTime(Free Text in Aprima) UA 90644 Ketones neg DateTime(Free Text in Aprima) UA 44118 Urobilinogen neg DateTime(Free Text in Aprima) UA 34328 Nitrite neg DateTime(Free Text in Aprima) UA 71989 Leukocytes 1+ DateTime(Free Text in Aprima) UA 99521 Specific [place] 1.005 DateTime(Free Text in Aprima ) UA 29821 PH 6.0 DateTime(Free Text in Aprima) UA 43730 GLUCOSE neg DateTime(Free Text in Aprima) UA 32035 Protein neg DateTime(Free Text in Aprima) UA 37851 Blood 1+ DateTime(Free Text in Aprima) UA 22457 Bilirubin neg DateTime(Free Text in Aprima) UA 82261 Ketones neg DateTime(Free Text in Aprima) UA 70958 Urobilinogen neg DateTime(Free Text in Aprima) UA 84290 Nitrite neg DateTime(Free Text in Aprima) UA 65978 Leukocytes neg DateTime(Free Text in Aprima) Review [...] CPT-4: J3301 12/06/2018 THER/PROPH/DIAG INJ SC/IM CPT-4: 52841 12/06/2018 URINALYSIS NONAUTO W/O SCOPE CPT-4: 82663 11/25/2018 PPPS, SUBSEQ VISIT CPT -4: G0439 09/02/2018 ADMIN INFLUENZA VIRUS VAC CPT-4: G0008 06/18/2018 ADMIN PNEUMOCOCCAL VACCINE SNOMED CT: 44945767 CPT-4: G0009 06/18/2018 PNEUMOCOCCAL VACC [address]: 29575255 CPT-4: 94194 06/18/2018 FLU VAC NO PRSV 4 DONTE 3 YRS+ Formatting Model/CDA Sections, Assigned to/Abigail Mancia CPT-4: 38952Xdarmew 06/18/2018 PPPS, SUBSEQ VISIT CPT -4: G0439 08/22/2017 THER/PROPH/DIAG INJ SC/IM CPT-4: 64427 08/15/2017 TRIAMCINOLONE ACET INJ NOS CPT-4: J3301 08/15/2017 TOBACCO-USE FOUNDATION DIGGER 3-[address]: 900886226 CPT-4: G0436 12/12/2016 URINALYSIS NONAUTO W/O SCOPE CPT-4: 59116 12/12/2016 ADMIN INFLUENZA VIRUS VAC CPT-4: G0008 07/19/2016 FLU VACC 4 DONTE 3 YRS PLUS IM Formatting Model/CDA Sections, Assigned to/Abigail Mancia SNOMED CT: 29552127 CPT-4: 99319Tbosrou 07/19/2016 TRIAMCINOLONE ACET INJ NOS CPT-4: J3301 06/21/2016 TOBACCO-USE FOUNDATION DIGGER 3-[address]: 680019091 CPT-4: G0436 02/02/2016 ADMIN INFLUENZA VIRUS VAC CPT-4: G0008 08/25/2015 FLU VACC PRSV FREE INC ANTIG Formatting Model/CDA Sections, Assigned to/Abigail Mancia CPT-4: 96613Svlwzip 08/25/2015 BIOPSY SKIN LESION CPT -4: 43264 02/02/2015 TRIAMCINOLONE ACET INJ NOS CPT-4: J3301 09/15/2014 DRAIN/INJECT JOINT/BURSA CPT-4: 24554 09/15/2014 TRIAMCINOLONE ACET INJ NOS CPT-4: J3301 08/03/2014 ADMIN INFLUENZA VIRUS VAC CPT-4: G0008 06/29/2014 FLU VAC NO PRSV 4 DONTE 3 YRS+ Assigned to/Abigail Mancia CPT-4: 17639Vkiadai 06/29/2014 TRIAMCINOLONE ACET INJ NOS CPT-4: J3301 04/27/2014 ROUTINE VENIPUNCTURE CPT-4: 21573 08/21/2013 URINALYSIS NONAUTO W/O SCOPE CPT-4: 27852 08/18/2013 PRESCRIP TRANSMIT VIA ERX SY CPT-4: G8553 08/18/2013 ADMIN PNEUMOCOCCAL VACCINE SNOMED CT: 37684204 CPT-4: G0009 07/31/2013 Pneumococcal Polysaccharide Vaccine, 23-Valent, Ad CPT-4: 60513 07/31/2013 ADMIN INFLUENZA VIRUS VAC CPT-4: G0008 07/23/2013 FLULAVAL VACC, 3 YRS & >, IM CPT-4: Q2036 07/23/2013 PRESCRIP TRANSMIT VIA ERX SY CPT-4: G8553 04/29/2013 URINALYSIS NONAUTO W/O SCOPE CPT-4: 30000 04/14/2013 URINALYSIS NONAUTO W/O SCOPE CPT-4: 22339 03/24/2013 REMOVAL OF SKIN TAGS <W/15 CPT-4: 16733 02/06/2013 TRIAMCINOLONE ACET INJ NOS CPT-4: J3301 11/05/2012 THER/PROPH/DIAG INJ SC/IM CPT-4: 65197 11/05/2012 PRESCRIP TRANSMIT VIA ERX SY CPT-4: G8553 11/05/2012 URINALYSIS NONAUTO W/O SCOPE CPT-4: 98526 10/31/2012 URINALYSIS NONAUTO W/O SCOPE CPT-4: 98024 09/25/2012 PRESCRIP TRANSMIT VIA ERX SY CPT-4: G8553 09/25/2012 URINALYSIS NONAUTO W/O SCOPE CPT-4: 04881 08/20/2012 PRESCRIP TRANSMIT VIA ERX SY CPT-4: G8553 08/20/2012 ADMIN INFLUENZA VIRUS VAC CPT-4: G0008 07/01/2012 FLULAVAL VACC, 3 YRS & >, IM CPT-4: Q2036 07/01/2012 URINALYSIS NONAUTO W/O SCOPE CPT-4: 65350 04/19/2012 KETOROLAC TROMETHAMINE INJ CPT-4: J1885 04/04/2012 PRESCRIP TRANSMIT VIA ERX SY CPT-4: G8553 04/04/2012 PRESCRIP TRANSMIT VIA ERX SY CPT-4: G8553 04/01/2012 Vital Signs Date Vital 12/06/2018 Blood Pressure 1: 118/64 Code : 8480-6 BMI: 24.3 Code : 90014-3 Heart Rate 1 : 65 bpm Height: 5'8" SpO2: 96% Weight: 160 lbs 11/25/2018 Blood Pressure 1: 150/72 Code : 8480-6 BMI: 24.3 Code : 66238-2 Heart Rate 1 : 65 bpm Height: 5'8" SpO2: 98% Temperature: 36.5 (C) / 97.7 (F) Weight: 160 lbs 10/14/2018 Blood Pressure 1: 140/80 Code : 8480-6 BMI: 24.7 Code : 09359-3 Heart Rate 1 : 59 bpm Height: 5'8" SpO2: 97% Weight: 162 lbs 2 oz 09/02/2018 Blood Pressure 1: 140/76 Code : 8480-6 BMI: 21.9 Code : 95566-4 Heart Rate 1 : 56 bpm Height: 5'8" SpO2: 97% Waist Measure (cm): 94 cm Weight: 144 lbs 05/21/2018 Blood Pressure 1: 136/80 Code : 8480-6 BMI: 24.6 Code : 43845-7 Heart Rate 1 : 57 bpm Height: 5'8" SpO2: 96% Weight: 162 lbs 03/04/2018 Blood Pressure 1: 160/82 Code : 8480-6 BMI: 24.3 Code : 94027-5 Heart Rate 1 : 67 bpm Height: 5'8" SpO2: 99% Temperature: 36.6 (C) / 97.9 (F) Weight: 160 lbs 01/22/2018 Blood Pressure 1: 132/84 Code : 8480-6 BMI: 24.2 Code : 88650-7 Heart Rate 1 : 64 bpm Height: 5'8" SpO2: 95% Weight: 159 lbs 10/22/2017 Blood Pressure 1: 152/78 Code : 8480-6 BMI: 24.0 Code : 20441-3 Heart Rate 1 : 68 bpm Height: 5'8" SpO2: 97% Weight: 158 lbs 08/22/2017 BMI: 24.8 Code: 22395-8 Height: 5'8" Weight: 163 lbs 08/15/2017 Blood Pressure 1: 140/74 Code : 8480-6 Heart Rate 1: 75 bpm Height: 5'8" SpO2: 96% Weight: 06/19/2017 Blood Pressure 1: 146/62 Code : 8480-6 BMI: 25.7 Code : 93241-8 Heart Rate 1 : 64 bpm Height: 5'8" SpO2: 96% Weight: 169 lbs 02/13/2017 Blood Pressure 1: 150/78 Code : 8480-6 BMI: 27.2 Code : 70600-5 Heart Rate 1 : 70 bpm Height: 5'8" SpO2: 96% Weight: 179 lbs 02/05/2017 Blood Pressure 1: 146/74 Code : 8480-6 BMI: 26.9 Code : 01195-6 Heart Rate 1 : 70 bpm Height: 5'8" SpO2: 96% Weight: 177 lbs 02/02/2017 Blood Pressure 1: 124/62 Code : 8480-6 BMI: 26.9 Code : 32960-8 Heart Rate 1 : 54 bpm Height: 5'8" SpO2: 94% Weight: 177 lbs 12/12/2016 Blood Pressure 1: 130/72 Code : 8480-6 BMI: 27.1 Code : 50858-1 Heart Rate 1 : 82 bpm Height: 5'8" SpO2: 95% Weight: 178 lbs 8 oz 06/21/2016 Blood Pressure 1: 136/74 Code : 8480-6 BMI: 25.8 Code : 37479-5 Heart Rate 1 : 86 bpm Height: 5'8" SpO2: 98% Weight: 170 lbs 05/24/2016 Blood Pressure 1: 132/80 Code : 8480-6 BMI: 25.7 Code : 48470-7 Heart Rate 1 : 67 bpm Height: 5'8" SpO2: 96% Weight: 169 lbs 02/02/2016 Blood Pressure 1: 138/80 Code : 8480-6 BMI: 25.8 Code : 17871-6 Heart Rate 1 : 67 bpm Height: 5'8" SpO2: 94% Weight: 170 lbs 11/03/2015 Blood Pressure 1: 138/82 Code : 8480-6 BMI: 26.0 Code : 30798-1 Heart Rate 1 : 80 bpm Height: 5'8" SpO2: 92% Weight: 171 lbs 02/02/2015 Blood Pressure 1: 136/88 Code : 8480-6 BMI: 26.6 Code : 74586-8 Heart Rate 1 : 67 bpm Height: 5'8" SpO2: 97% Temperature: 37.2 (C) / 98.9 (F) Weight: 175 lbs 01/25/2015 Blood Pressure 1: 150/92 Code : 8480-6 BMI: 26.6 Code : 02433-0 Heart Rate 1 : 79 bpm Height: 5'8" SpO2: 98% Weight: 175 lbs 11/26/2014 Blood Pressure 1: 148/92 Code : 8480-6 Blood Pressure 2: 142/92 Code: 8480-6 BMI: 26.5 Code: 92466-6 Heart Rate 1: 68 bpm Height: 5'8" Weight: 174 lbs 09/15/2014 Blood Pressure 1: 150/84 Code : 8480-6 BMI: 26.5 Code : 48692-1 Heart Rate 1 : 80 bpm Height: 5'8" Weight: 174 lbs 08/13/2014 Blood Pressure 1: 140/84 Code : 8480-6 Heart Rate 1: 82 bpm Height: Weight: 08/03/2014 Blood Pressure 1: 142/76 Code : 8480-6 BMI: 26.3 Code : 16276-0 Heart Rate 1 : 80 bpm Height: 5'8" Weight: 173 lbs 07/23/2014 Blood Pressure 1: 148/80 Code : 8480-6 Heart Rate 1: 76 bpm Weight: 175 lbs 06/29/2014 Blood Pressure 1: 140/82 Code : 8480-6 BMI: 26.5 Code : 69709-6 Heart Rate 1 : 60 bpm Height: 5'8" Weight: 174 lbs 04/27/2014 Blood Pressure 1: 112/70 Code : 8480-6 BMI: 26.5 Code : 44631-2 Heart Rate 1 : 72 bpm Height: 5'8" SpO2: 98% Weight: 174 lbs 01/28/2014 Blood Pressure 1: 134/80 Code : 8480-6 BMI: 26.6 Code : 33980-9 Heart Rate 1 : 72 bpm Height: 5'8" Weight: 175 lbs 01/05/2014 Blood Pressure 1: 142/86 Code : 8480-6 BMI: 27.2 Code : 46244-7 Heart Rate 1 : 78 bpm Height: 5'8" Weight: 179 lbs 11/17/2013 Blood Pressure 1: 118/62 Code : 8480-6 BMI: 27.1 Code : 67277-7 Heart Rate 1 : 76 bpm Height: 5'8" Weight: 178 lbs 08/27/2013 Blood Pressure 1: 126/80 Code : 8480-6 BMI: 26.6 Code : 84533-3 Heart Rate 1 : 72 bpm Height: [...] Code : 8480-6 BMI: 26.5 Code : 88321-7 Heart Rate 1 : 72 bpm Height: 5'8" Weight: 174 lbs 8 oz 03/24/2013 Blood Pressure 1: 112/78 Code : 8480-6 BMI: 26.2 Code : 74813-0 Heart Rate 1 : 72 bpm Height: [...] encounter[ICD10: T50.905A] [facility] CPT-4: 17853 12/06/2018 ([id number]) 65105 EST. PATIENT, LEVEL IV Diagnosis: Essential (primary) hypertension[ICD10: I10] Diagnosis: Dysuria[ICD10: R30.0] Diagnosis: Personal history of urinary (tract) infections[ICD10: Z87.440] [facility] CPT-4: 77324 11/25/2018 ([id number]) 92592 EST. PATIENT, LEVEL III Diagnosis: Diverticulitis of large intestine without perforation or abscess without bleeding[ICD10: K57.32] Tessa George MD [facility] CPT-4: 74080 10/14/2018 ([id number]) 61195 EST. PATIENT, LEVEL IV Diagnosis: Essential (primary) hypertension[ICD10: I10] Diagnosis: Tobacco use[ICD10: Z72.0] Diagnosis: Functional diarrhea[ICD10: K59.1] Tessa George MD [facility] CPT-4: 44272 05/21/2018 ([id number]) 89752 EST. PATIENT, LEVEL III Diagnosis: Insect bite (nonvenomous) of abdominal wall, initial encounter[ICD10 : S30.861A] Tessa George MD [facility] CPT-4: 91606 ([id number]) 74356 EST. PATIENT, LEVEL IV Diagnosis: Essential (primary) hypertension[ICD10: I10] Diagnosis: Tobacco use[ICD10: Z72.0] Diagnosis: Functional diarrhea[ICD10: K59.1] Tessa George MD [facility] CPT-4: 65085 01/22/2018 ([id number]) 06133 EST. PATIENT, LEVEL III Diagnosis: Essential (primary) hypertension[ICD10: I10] Diagnosis: Functional diarrhea[ICD10: K59.1] Tessa George MD [facility] CPT-4: 94316 10/22/2017 44994 EST. PATIENT, LEVEL III Diagnosis: Rash and other nonspecific skin eruption[ICD10: R21] Brokoe George MD, [facility] CPT-4: 58902 08/15/2017 ([id number]) 11045 EST. PATIENT, LEVEL IV Diagnosis: Essential (primary) hypertension[ICD10: I10] Diagnosis: Functional diarrhea[ICD10: K59.1] Diagnosis: Epigastric pain[ICD10: R10.13] Tessa George MD [facility] CPT- 4: 97706 06/19/2017 ([id number]) 14804 EST. PATIENT, LEVEL IV Diagnosis: Essential (primary) hypertension[ICD10: I10] Diagnosis: Epigastric pain[ICD10: R10.13] Tessa George MD, [facility] CPT- 4: 82958 02/13/2017 41195 EST. PATIENT, LEVEL IV Diagnosis: Low back pain[ICD10: M54.5] Brooke George MD, [facility] CPT-4 : 42301 02/05/2017 40362 EST. PATIENT, LEVEL IV Diagnosis: Dysuria[ICD10: R30.0] Diagnosis: Low back pain[ICD10: M54.5] Brooke George MD, [facility] CPT-4 : 36997 02/02/2017 ([id number]) 64795 EST. PATIENT, LEVEL IV Diagnosis: Essential (primary) hypertension[ICD10: I10] Diagnosis: Dysuria[ICD10: R30.0] Diagnosis: Tobacco use[ICD10: Z72.0] Tessa George MD, [facility] CPT-4: 22873 12/12/2016 45098 EST. PATIENT, LEVEL IV Diagnosis: Other acute sinusitis[ICD10: J01.80] Diagnosis: Other allergic rhinitis[ICD10: J30.89] Brooke George MD, [facility] CPT-4: 58601 06/21/2016 ([id number]) 43634 EST. PATIENT, LEVEL III Diagnosis: Essential (primary) hypertension[ICD10: I10] Diagnosis: Major depressive disorder, single episode, unspecified[ICD10: F32.9] Tessa George MD, [facility] CPT-4: 98396 05/24/2016 ([id number]) 68502 EST. PATIENT, LEVEL IV Diagnosis: Essential (primary) hypertension[ICD10: I10] Diagnosis: Major depressive disorder, single episode, unspecified[ICD10: F32.9] Diagnosis: Tobacco use[ICD10: Z72.0] Tessa George MD, [facility] CPT-4: 83108 02/02/2016 ([id number]) 64177 EST. PATIENT, LEVEL IV Diagnosis: Essential (primary) hypertension[ICD10: I10] Diagnosis: Polymyalgia rheumatica[ICD10: M35.3] Diagnosis: Major depressive disorder, single episode, unspecified[ICD10: F32.9] Tessa George MD, [facility] CPT-4: 53827 11/03/2015 ([id number]) Miscellaneous no charge Diagnosis: Hyperpigmented skin lesion[ICD9: 709.00] Tessa George MD [facility] CPT-4: 30029 02/12/2015 ([id number]) 47200 EST. PATIENT, LEVEL IV Diagnosis: ESSENTIAL HYPERTENSION[ICD9: 401.9] Diagnosis: DEPRESSIVE DISORDER NEC[ICD9: 311] Diagnosis: POLYMYALGIA RHEUMATICA[ICD9: 725] Tessa George MD, [facility] CPT-4: 46102 01/25/2015 ([id number]) 36179 EST. PATIENT, LEVEL IV Diagnosis: ESSENTIAL HYPERTENSION[ICD9: 401.9] Diagnosis: Polymyalgia rheumatica syndrome[ICD9: 725] Diagnosis: Smoking[ICD9: 305.1] Tessa George MD, [facility] CPT-4: 99939 11/26/2014 ([id number]) 87090 EST. PATIENT, LEVEL III Diagnosis: ESSENTIAL HYPERTENSION[ICD9: 401.9] Diagnosis: Sacroiliitis[ICD9: 720.2] Tessa George MD, [facility] CPT-4: 76868 09/15/2014 ([id number]) 81266 EST. PATIENT, LEVEL III Diagnosis: Hip pain[ICD9: 719.45] Diagnosis: Sacroiliac pain[ICD9: 724.6] Tessa George MD, [facility] CPT- 4: 92383 08/13/2014 ([id number]) 22180 EST. PATIENT, LEVEL III Diagnosis: ACUTE SINUSITIS[ICD9: 461.9] Diagnosis: ALLERGIC RHINITIS[ICD9: 477.9] Aviva George MD, [facility] CPT-4: 14840 08/03/2014 ([id number]) 67440 EST. PATIENT, LEVEL IV Diagnosis: ESSENTIAL HYPERTENSION[ICD9: 401.9] Diagnosis: DEPRESSIVE DISORDER NEC[ICD9: 311] Diagnosis: POLYMYALGIA RHEUMATICA[ICD9: 725] Tessa George MD, [facility] CPT-4: 11718 07/23/2014 ([id number]) 61594 EST. PATIENT, LEVEL IV Diagnosis: ESSENTIAL HYPERTENSION[ICD9: 401.9] Diagnosis: DEPRESSIVE DISORDER NEC[ICD9: 311] Diagnosis: POLYMYALGIA RHEUMATICA[ICD9: 725] Diagnosis: VACCIN FOR INFLUENZA[ICD10: Z23] Tessa George MD [facility] CPT-4: 95633 06/29/2014 ([id number]) 34475 EST. PATIENT, LEVEL III Diagnosis: ACUTE MAXILLARY SINUSITIS[ICD9: 461.0] Diagnosis: BPPV (benign paroxysmal positional vertigo)[ICD9: 386.11] Aviva George MD , [facility] CPT-4: 77715 04/27/2014 ([id number]) 78877 EST. PATIENT, LEVEL III Diagnosis: ESSENTIAL HYPERTENSION[SNOMED: 71728868] Diagnosis: Fatigue[ICD9: 780.79] Diagnosis: DEPRESSIVE DISORDER NEC[ICD9: 311] Tessa George MD [facility] CPT-4: 42183 01/28/2014 ([id number]) 16344 EST. PATIENT, LEVEL III Diagnosis: ESSENTIAL HYPERTENSION[SNOMED: 88347792] Diagnosis: Blurry vision, bilateral[ICD9: 368.8] Tessa George MD [facility] CPT-4: 08381 01/05/2014 ([id number]) 62750 EST. PATIENT, LEVEL IV Diagnosis: POLYMYALGIA RHEUMATICA[ICD9: 725] Diagnosis: PAIN IN LIMB[ICD9: 729.5] Diagnosis: ESSENTIAL HYPERTENSION[SNOMED: 95423565] Tessa George MD [facility] CPT-4: 28255 11/17/2013 ([id number]) 84212 EST. PATIENT, LEVEL III Diagnosis: Polymyalgia rheumatica syndrome[ICD9: 725] Tessa George MD [facility] CPT-4: 89833 08/27/2013 ([id number]) 19444 EST. PATIENT, LEVEL III Diagnosis: ESSENTIAL HYPERTENSION[SNOMED: 51003873] Diagnosis: Fatigue[ICD9: 780.79] Tessa George MD, [facility] CPT-4: 24997 08/21/2013 ([id number]) 26596 EST. PATIENT, LEVEL III Diagnosis: Urinary tract infection[ICD9: 599.0] Diagnosis: ESSENTIAL HYPERTENSION[SNOMED: 34453464] Aviva George MD, [facility] CPT-4: 13730 08/18/2013 ([id number]) 53241 EST. PATIENT, LEVEL IV Diagnosis: ESSENTIAL HYPERTENSION[SNOMED: 42044448] Diagnosis: HEMATURIA NOS[ICD9: 599.70] Diagnosis: CHRONIC INTERSTITIAL CYSTITIS[ICD9: 595.1] Tessa Georeg MD [facility] CPT-4: 48892 04/29/2013 ([id number]) 72203 EST. PATIENT, LEVEL III Diagnosis: Recurrent urinary tract infection[ICD9: 599.0] Diagnosis: DYSURIA[ICD9: 788.1] Tessa George MD [facility] CPT-4: 00070 03/24/2013 ([id number]) 71155 EST. PATIENT, LEVEL IV Diagnosis: ESSENTIAL HYPERTENSION[SNOMED: 59843420] Diagnosis: HYPERLIPIDEMIA[ICD9: 272.4] Diagnosis: Irritated nevus of neck[ICD9: 216.4] Tessa George MD [facility] CPT-4: 25009 02/06/2013 ([id number]) 75875 EST. PATIENT, LEVEL III Diagnosis: ACUTE MAXILLARY SINUSITIS[ICD9: 461.0] Diagnosis: ACUTE URI[ICD9: 465.9] Diagnosis: COUGH[ICD9: 786.2] Tessa George MD [facility] CPT-4: 22556 11/05/2012 ([id number]) 05548 EST. PATIENT, LEVEL III Diagnosis: ESSENTIAL HYPERTENSION[SNOMED: 31492748] Diagnosis: ILL-DEFINE CONDITION NEC[ICD9: 799.89] Tessa George MD [facility] CPT-4: 25902 10/31/2012 ([id number]) 29514 EST. PATIENT, LEVEL III Diagnosis: ESSENTIAL HYPERTENSION[SNOMED: 62325698] Tessa George MD [facility] CPT-4: 26451 09/03/2012 ([id number]) 77557 EST. PATIENT, LEVEL III Diagnosis: UTI[ICD9: 599.0] Diagnosis: Microscopic hematuria[ICD9: 599.72] Diagnosis: ESSENTIAL HYPERTENSION[SNOMED: 28195936] Tessa George MD [facility] CPT-4: 70352 08/20/2012 ([id number]) 66351 EST. PATIENT, LEVEL IV Diagnosis: Constipation - functional[ICD9: 564.09] Diagnosis: Abdominal pain[ICD9: 789.00] Tessa George MD [facility] CPT- 4: 90876 07/16/2012 ([id number]) 24059 EST. PATIENT, LEVEL IV Diagnosis: ESSENTIAL HYPERTENSION[SNOMED: 21881549] Diagnosis: Fatigue[ICD9: 780.79] Diagnosis: Constipation - functional[ICD9: 564.09] Tessa George MD [facility] CPT-4: 17886 07/01/2012 ([id number]) 66325 EST. PATIENT, LEVEL III Diagnosis: ESSENTIAL HYPERTENSION[SNOMED: 96368226] Diagnosis: HEADACHE[ICD9: 784.0] Tessa George MD [facility] CPT-4: 29324 05/08/2012 50621 EST. PATIENT, LEVEL IV Diagnosis: Urinary tract infection[ICD9: 599.0] Diagnosis: ESSENTIAL HYPERTENSION[SNOMED: 04639677] Diagnosis: Fatigue[ICD9: 780.79] Tessa George MD [facility] CPT-4: 12355 04/19/2012 ([id number]) 55258 EST. PATIENT, LEVEL IV Diagnosis: ESSENTIAL HYPERTENSION[SNOMED: 60225006] Diagnosis: Mouth dryness[ICD9: 527.7] Diagnosis: HEADACHE[ICD9: 784.0] Diagnosis: CERVICALGIA[ICD9: 723.1] Tessa George MD [facility] CPT-4: 58039 04/15/2012 ([id number]) 53144 EST. PATIENT, LEVEL IV Diagnosis: Urinary tract infection[ICD9: 599.0] Diagnosis: Generally unwell[ICD9: 799.89] Diagnosis: ESSENTIAL HYPERTENSION[SNOMED: 21109751] Diagnosis: MYALGIA AND MYOSITIS[ICD9: 729.1] Tessa George MD [facility] CPT-4: 93361 04/04/2012 ([id number]) 40214 EST. PATIENT, LEVEL IV Diagnosis: ESSENTIAL HYPERTENSION[SNOMED: 02174099] Diagnosis: Unsteady gait[ICD9: 781.2] Diagnosis: Neck pain[ICD9: 723.1] [facility] CPT-4: 56595 04/01/2012 ([id number]) Patient admitted to the hospital from clinic (NO CHARGE) Diagnosis: Pericardial rub[ICD9: 785.3] Diagnosis: ESSENTIAL HYPERTENSION[SNOMED: 62567197] Diagnosis: HEADACHE[ICD9: 784.0] Diagnosis: Arm pain[ICD9: 729.5] [facility]iva Abdi [facility] CPT-4: 58949D 03/20/2012 Plan of Care Planned Activity Notes [...] prednisone taper. 12/06/2018 Appointment: Brooke Dominguez WPtel: [facility]5 [facility] (15 min) Moderate 12/06/2018 Patient Education: Patient [...] not improve. 11/25/2018 Appointment: Tessa George WPtel: [facility] ([facility] min) Moderate 11/25/2018 Patient Education: [...] better by sunday10/14/2018 Appointment: Tessa George WPtel: [facility]5 [facility] (15 min) Moderate 10/14/2018 Patient Education: Patient Medication Summary Completed 10/14/2018 Appointment: Tessa George WPtel: [facility]5 [facility] (15 min) Moderate 09/24/2018 Visit Plan: [...] care surrogate. 09/02/2018 Appointment: Brooke Dominguez WPtel: [facility] - Annual Wellness Visit 09/02/2018 Patient [...] monitor symptoms. 05/21/2018 Appointment: Tessa George WPtel: [facility]5 [facility] (15 min) Moderate 05/21/2018 Patient Education: Patient Medication Summary Completed 05/21/2018 Visit Plan: tick bite - rx for doxycycline - and use benadryl cream on the tick bites to help decrease itching 03/04/2018 Appointment: Tessa George WPtel: [phone] [facility] (15 min) Moderate 03/04/2018 Patient Education: [...] cessation strategies. 01/22/2018 Appointment: Tessa George WPtel: [phone] [facility] (15 min) Moderate 01/22/2018 Patient Education: [...] resolved. 10/22/2017 Appointment: Tessa George WPtel: [phone] [facility] (15 min) Moderate 10/22/2017 Patient Education: Patient [...] taper. 08/15/2017 [phone] ([facility]) Complex 08/15/2017 Patient Education: Patient [...] at home. 06/19/2017 Appointment: Tessa George WPtel: [facility] (15 min) Moderate 06/19/2017 Patient Education: [...] abdomen 02/13/2017 Appointment: [phone] [facility] [place] (15 min) Moderate 02/13/2017 Patient [...] improve. 02/05/2017 Appointment: Brooke Dominguez WPtel: [phone] [facility] (15 min) Moderate 02/05/2017 Patient Education: Patient [...] not improve. 02/02/2017 Appointment: Brooke Dominguez WPtel: [facility]3 [facility] (15 min) Moderate 02/02/2017 Patient Education: Patient [...] stopping. 12/12/2016 Appointment: Tessa George WPtel: [phone] [facility] (15 min) Moderate 12/12/2016 Patient Education: [...] allergy spray. 06/21/2016 Appointment: Aviva Patton WPtel: [address] [place], [place] [phone] (15 min) Moderate 06/21/2016 Patient Education: Patient [...] weeks. 02/02/2015 Appointment: [facility]Ptel[phone] [facility] [facility] Procedure 02/02/2015 Patient Education: Patient [...] another smoker. 11/26/2014 Appointment: Tessa George WPtel: [address] [place], [place] [phone] Follow up 11/26/2014 Patient Education: Patient Medication [...] at home. 09/15/2014 Appointment: Tessa George WPtel: [address] [place], [place] [phone] Follow up 09/15/2014 Patient Education: Patient Medication Summary Completed 09/15/2014 Visit Plan: Hip pain - stat xray right hip - antiinflammatories. Pt to use heat to hip, monitor symptoms - and pt to call if not improving, pt to be called with hip xray report. 08/13/2014 Appointment: Tessa George WPtel: [address] [place], [place] [phone] Sick 08/13/2014 Patient Education: Patient Medication Summary [...] daily. 07/23/2014 Appointment: [facility]el[facility] [phone] [facility] Follow up 07/23/2014 Patient Education: Patient [...] today 06/29/2014 Appointment: [facility]Ptel[facility] [phone] [facility] Follow up 06/29/2014 Patient Education: Patient [...] on cymbalta. 01/28/2014 Appointment: Tessa George WPtel: [address] [place], [place] [phone] Follow up 01/28/2014 Patient Education: Patient Medication [...] Dr. Benites. 01/05/2014 Appointment: Tessa George WPtel: [facility]8 [facility] [place] Follow up 01/05/2014 Patient Education: Patient Medication Summary Completed 01/05/2014 Patient Education: Hypertension Completed 01/05/2014 Appointment: Tessa George WPtel: [facility]8 [facility] [place] Follow up 11/27/2013 Visit Plan: Hypertension [...] pain 11/17/2013 Appointment: Tessa [facility]Ptel[facility] [phone] [facility] Other 11/17/2013 Patient Education: Patient Medication Summary Completed 11/17/2013 Patient Education: Hypertension Completed 11/17/2013 Appointment: Tessa George WPtel: [facility]5 [facility] Lab Draw 10/29/2013 Visit Plan: Polymyalgia Rheumatica [...] side effects. 08/27/2013 Appointment: Tessa George WPtel: [facility] Follow up 08/27/2013 Patient Education: Patient [...] improve. 08/18/2013 Appointment: [facility] Pat[facility]el[phone] [place] Other 08/18/2013 Patient Education: Patient Medication Summary Completed 08/18/2013 Patient Education: Hypertension Completed 08/18/2013 Appointment: [facility]iva Patton [facility]Ptel[facility] [phone] [phone] [place] Injection 07/31/2013 Patient Education: Patient Medication Summary Completed 07/31/2013 Appointment: [facility] Patton [facility]el[phone] [place] Injection 07/23/2013 Patient Education: Patient Medication [...] of dysuria. 04/29/2013 Appointment: Tessa George WPtel: [facility]5 [facility] Follow up 04/29/2013 Patient Education: Patient Medication Summary Completed 04/29/2013 Patient Education: Hypertension Completed 04/29/2013 Appointment: Tessa George WPtel: [facility] [facility] Draw 04/14/2013 Patient Education: Patient Medication Summary Completed 04/14/2013 Visit Plan: DYSURIA - WITH RECURRENT UTI - WILLGIVE ANTIBIOTIC AND REFER PT TO SEE DR. CHOW ABOUT RECTOCELE AND CYSTOCELE. 03/24/2013 Appointment: Tessa George WPtel: [address] [place], [place] [phone] Other 03/24/2013 Patient Education: Patient Medication Summary [...] silver nitrate. 02/06/2013 Appointment: Tessa George WPtel: [facility]5 [facility] Follow up 02/06/2013 Patient Education: Patient Medication Summary Completed 02/06/2013 Patient Education: Hypertension Completed 02/06/2013 Visit Plan: Sinusitis - Pt has acute infection - pain in face, maxillary region, Pt informed to use decongestant, RX given to patient, sinus rinses also recommended. Call if symptoms do not show improvement. 11/05/2012 Appointment: Tessa George WPtel: [phone] [facility] Other 11/05/2012 Patient Education: Patient Medication [...] call clinic. 10/31/2012 Appointment: Tessa George WPtel: [facility] Follow up 10/31/2012 Patient Education: Patient [...] Ordoñ[place] 09/25/2012 App[facility]ment[phone] [place] Follow up 09/25/2012 Patient Education: [...] home. 09/03/2012 Appointment: [phone] [place] Follow up 09/03/2012 Patient Education: [...] for review. 08/20/2012 [facility]ment[id number] [place] Follow up 08/20/2012 Patient Education: Patient [...] on miralax 07/16/2012 Appointment: Aviva Patton WPtel: [phone] [id number] Sick 07/16/2012 Patient Education: Patient Medication [...] pt to start kn benefiber 07/01/2012 Appointment: Tesas George WPtel: [phone] [facility] Follow up 07/01/2012 Patient Education: Patient [...] in stopping. 05/08/2012 Appointment: Tessa George WPtel: [facility] [place] [id number] [facility] 05/08/2012 Patient Education: Patient Medication [...] acute concerns. 04/19/2012 Appointment: Aviva Patton WPtel: [facility]5 [id number] Other 04/19/2012 Patient Education: Patient Medication [...] the coreg. 04/15/2012 Appointment: Tessa George WPtel: [facility] [facility] 04/15/2012 Patient Education: Patient Medication Summary Completed 04/15/2012 Patient Education: High Blood Pressure: Essential Hypertension Completed 2011 Appointment: Tessa George WPtel: [facility] [place] Lab Draw 04/08/2012 Visit Plan: [...] medication. 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 George in to evaluate [...] AND EVALUATION OF THE ACUTE ILLNESS. Pericardial wgw-GXM-Pbejhska-arm pain-history of sarahes- Dr. George in to evaluate patient-plan to admit for further work up and close monitoring. Plan to get labs STAT including a cardiac panel. A stat echo has also been ordered as well with cardiology consult. 03/20/2012 Appointment: Aviva Patton WPtel: [phone] [phone] [place] Other 03/20/2012 Patient Education: Patient Medication Summary Completed 03/20/2012 Patient Education: High Blood Pressure: Essential Hypertension Completed 2011 Appointment: Aviva Patton WPtel: [phone] [phone] [place] Other 08/30/2011 Instructions Comment . Hypertension - [...] if symptoms do not show improvement. . Ongoing flank/low back pain - will check x-ray - The pt is to use prn antiinflammatories to manage acute pain. The patient is to call the office if the pain is worsening or does not improve. we will order a ct of abdomen [...] in the nasal steroid allergy spray. . Pericardial tep-YWA-Gqqozhpo-arm pain-history of shingles -Dr. George in to evaluate patient-plan to admit for further work up and close monitoring. Plan to get labs STAT including a cardiac panel. A stat echo has also been ordered as well with cardiology consult. . . Hypertension - well controlled - continue [...] this patient. Pt started on cymbalta. . ADMIT FROM CLINIC TO HOSPITAL - PT IS ACUTELY ILL, REQUIRES HOSPITALIZATION. THE PATIENT HAS BEEN EVALUATED IN CLINIC AND THIS STANDS THE HOSPITAL HISTORY AND PHYSICAL EXAMINATION. THE PATIENT HAS BEEN SENT TO THE HOSPITAL WITH WRITTEN ORDERS FOR TREATMENT AND EVALUATION OF THE ACUTE ILLNESS. Pericardial zts-DTS-Gipkljgu-arm pain-history of shingles-Dr. George in to evaluate [...] Will give RX after review of labs. . Headache - Start on the Naprosyn at 1/2 pill up to three times a day, then if needed, can take up to a full pill twice daily. UTI prevention - Activia - yogurt Cultrelle or Lactobacillus, or 3D Hubs - probiotics that have the same properties [...] fill new RX for cymbalta 60mg daily. Increase your probiotic to twice daily I [...] pressure readings at home. . Hypertension - not quite optimally controlled [...] smoker in a home with another smoker. Monitor your blood pressure at home and [...]
--- OUTSIDE RECORDS SUMMARY | 2019-01-26 14:38 | XMS REPORT | CCD ---
Author Author Aviva Patton Organization Tessa George MD, [facility] Address [address] [place] [address] Phone Care Team Providers Care Science Education Professor Name Role Phone Tessa George PP Unavailable CCM Unavailable Summary Purpose Interface Exchange Insurance Providers Payer name Policy type / Coverage type Covered constitution party ID Effective Begin Date Effective End Date WPS Medicare Part B Medicare Part B [id number] Unknown FOR LIFE WPS Medicare Part B [id number] Unknown Family history Mother Diagnosis Age At Onset Myocardial infarction Unknown Father Diagnosis Age At Onset Cancer Unknown bladder cancer Unknown Myocardial infarction Unknown Brother Diagnosis Age At Onset Myocardial infarction Unknown Social History Social History Element Codes Description Effective Dates Marital status Unknown 02/02/[address]: 33562202 Current every day smoker 02/02/2016 Number of children Unknown 2 sons living and well 03/20/2012 Living arrangements Unknown House 03/20/2012 Employment Unknown Retired 03/20/2012 Number of years using tobacco Unknown 40 03/20/2012 Number of cigarettes/day Unknown 10 ( Half a pack) 03/20/[address]: 348699447 Never drinks alcohol 03/20/2012 Allergies, Adverse Reactions, Alerts Substance Reaction Codes Entered Date Inactivated Date Status levaquin tendonitis Unknown 12/06/2018 No Inactive Date Active * NO KNOWN FOOD ALLERGIES Unknown 07/01/2012 No Inactive Date Active cephalexin RxNorm: 2231 04/19/2012 No Inactive Date Active AUGMENTIN angioedema, RxNorm: 127388 12/06/2018 No Inactive Date Active SULFA(SULFONAMIDE ANTIBIOTICS) [...] Start Date Stop Date Status Fill Instructions prednisone 20 mg tablet RxNorm: 564937 2 Tablet(s) PO daily 12/10/2018 Active Kenalog 40 mg/mL suspension for injection RxNorm: 5307002 1.5 Milliliter(s) Inj 12/06/2018 12/06/2018 Inactive Augmentin 875 mg-125 mg tablet RxNorm: 171504 1 Tablet(s) PO BID 11/26/2018 12/02/2018 Inactive Levaquin 500 mg tablet RxNorm: 131974 1 Tablet(s) PO daily 08/201911/29/2018 Inactive furosemide 20 mg tablet RxNorm: 979426 TAKE 1 TABLET DAILY No Stop Date Active Augmentin 875 mg-125 mg tablet RxNorm: 137589 1 Tablet(s) PO BID 10/14/2018 10/23/2018 Inactive doxycycline hyclate 100 mg tablet RxNorm: 243778 1 Tablet(s) PO BID 03/04/2018 03/10/2018 Inactive Pepcid AC 20 mg tablet RxNorm: 759360 1 Tablet(s) PO BID 201704/16/2019 Active pt requested a 90 day supply please Pepcid AC 20 mg tablet RxNorm: 998558 1 Tablet(s) PO BID 201701/21/2018 Inactive Pepcid AC 20 mg tablet RxNorm: 227793 1 Tablet(s) PO BID 201701/17/2018 Inactive Pepcid AC 20 mg tablet RxNorm: 976929 1 Tablet(s) PO BID 201712/18/2017 Inactive Flagyl 500 mg tablet RxNorm: 459772 1 Tablet(s) PO TID 201712/28/2017 Inactive Cymbalta 60 mg capsule,delayed release RxNorm: 310904 1 CAPSULE(S) PO DAILY 1 CAPSULE(S) PO DAILY 12/14/2017 No Stop Date Active Toprol XL 25 mg tablet,extended release RxNorm: 327645 1 TABLET(S) PO BID 12/14/2017 No Stop Date Active furosemide 20 mg tablet RxNorm: 668955 TAKE 1 TABLET DAILY 11/06/2018 Inactive Kenalog 40 mg/mL suspension for injection RxNorm: 3744143 1.5 Milliliter(s) Inj 08/15/2017 08/15/2017 Inactive triamcinolone acetonide 0.025 % topical cream RxNorm: 0302756 1 Application TOP BID as needed 08/15/2017 08/19/2017 Inactive prednisone 20 mg tablet RxNorm: 969484 2 Tablet(s) PO daily 10/201608/19/2017 Inactive Flagyl 500 mg tablet RxNorm: 618499 1 Tablet(s) PO TID 201608/10/2017 Inactive Flagyl 500 mg tablet RxNorm: 726984 1 Tablet(s) PO TID 201607/31/2017 Inactive Questran 4 gram powder for susp in a packet RxNorm: 958613 1/2 packet PO QID 06/19/2017 01/14/2018 Inactive Levsin/SL 0.125 mg sublingual tablet RxNorm: 2688849 1 Tablet(s) SL QID as needed abdominal pain or abdominal spasms 02/13/2017 08/19/2017 Inactive cyclobenzaprine 5 mg tablet RxNorm: 919456 1 Tablet(s) PO TID as needed 02/08/2017 02/12/2017 Inactive cyclobenzaprine 5 mg tablet RxNorm: 400564 1 Tablet(s) PO TID as needed 02/05/2017 02/07/2017 Inactive Cipro 250 mg tablet RxNorm: 227225 1 Tablet(s) PO BID 201602/11/2017 Inactive Cymbalta 60 mg capsule,delayed release RxNorm: 588817 1 Capsule(s) PO daily 1 CAPSULE(S) PO DAILY 12/18/2016 12/12/2017 Inactive Toprol XL 25 mg tablet,extended release RxNorm: 112604 1 Tablet(s) PO BID 12/18/2016 12/12/2017 Inactive [SAVINGS FOR NON-COVERED DRUGS -- BIN:[id number], PCN: ASPROD1, Group: XXXXX, ID# [id number], Questions: . THIS IS NOT INSURANCE.] ciprofloxacin 500 mg tablet RxNorm: 599910 1 Tablet(s) PO BID 12/12/2016 12/17/2016 Inactive furosemide 20 mg tablet RxNorm: 983786 TAKE 1 TABLET DAILY 12/201611/11/2017 Inactive levofloxacin 500 mg tablet RxNorm: 896131 1 Tablet(s) PO daily 06/21/2016 06/25/2016 Inactive Kenalog 40 mg/mL suspension for injection RxNorm: 1696438 Milliliter(s) Inj 06/21/2016 06/21/2016 Inactive hydrocodone 5 mg-acetaminophen 325 mg tablet RxNorm: 651892 1-2 Tablet(s) PO Q4- 6H as needed 11/03/2015 02/01/2016 Inactive Cymbalta 60 mg capsule,delayed release RxNorm: 237307 1 Capsule(s) PO daily 1 CAPSULE(S) PO DAILY 11/03/2015 12/17/2016 Inactive furosemide 20 mg tablet RxNorm: 495746 Tablet(s) TAKE 1 TABLET ONCE DAILY 11/03/2015 11/16/2016 Inactive Toprol XL 25 mg tablet,extended release RxNorm: 623719 2 Tablet(s) PO daily 11/03/2015 12/17/2016 Inactive [SAVINGS FOR NON-COVERED DRUGS -- BIN:052245, PCN: ASPROD1, Group: XXXXX, ID# [id number], Questions: . THIS IS NOT INSURANCE.] Cymbalta 60 mg capsule,delayed release RxNorm: 285532 1 Capsule(s) PO daily 1 CAPSULE(S) PO DAILY 05/31/2015 11/02/2015 Inactive Toprol XL 25 mg tablet,extended release RxNorm: 677574 2 Tablet(s) PO daily 01/25/2015 11/02/2015 Inactive [SAVINGS FOR NON-COVERED DRUGS -- BIN:064317, PCN: ASPROD1, Group: XXXXX, ID# [id number], Questions: . THIS IS NOT INSURANCE.] Voltaren 1 % topical gel RxNorm: 940901 2 Gram(s) TOP QID to hands 01/25/2015 05/24/2015 Inactive [SAVINGS FOR NON-COVERED DRUGS -- BIN:939640, PCN: ASPROD1, Group : XXXXX, ID# [id number], Questions: . THIS IS NOT INSURANCE.] furosemide 20 mg tablet RxNorm: 465932 TAKE 1 TABLET ONCE DAILY 12/17/2014 11/02/2015 Inactive Kenalog 40 mg/mL suspension for injection RxNorm: 0733416 2 Milliliter(s) Inj UD 09/17/2014 09/17/2014 Inactive [SAVINGS FOR UNINSURED PATIENTS -- BIN:630953, PCN: ASPROD1, Group: AME08, ID# [id number], Process claim through eLearning Connections, for questions: . THIS IS NOT INSURANCE.] Levaquin 500 mg tablet RxNorm: 231171 1 Tablet(s) PO daily 08/16/2014 Inactive [SAVINGS FOR UNINSURED PATIENTS -- BIN:509005, PCN: ASPROD1, Group: AME08 , ID# [id number], Process claim through MedImpact, for questions: . THIS IS NOT INSURANCE.] Kenalog 40 mg/mL suspension for injection RxNorm: 2770279 Milliliter(s) Inj 08/03/2014 08/03/2014 Inactive [SAVINGS FOR UNINSURED PATIENTS -- BIN:794180, PCN: ASPROD1, Group: AME08, ID# [id number], Process claim through MedImpact, for questions: . THIS IS NOT INSURANCE.] azithromycin 500 mg tablet RxNorm: 071005 1 Tablet(s) PO UD 08/02/2014 Inactive dispense a zpack azithromycin 500 mg tablet RxNorm: 309122 1 Tablet(s) PO daily 08/03/2014 08/07/2014 Inactive 1 tab daily Cymbalta 60 mg capsule,delayed release RxNorm: 808331 1 Capsule(s) PO daily 07/23/2014 05/31/2015 Inactive [SAVINGS FOR UNINSURED PATIENTS -- BIN:228360, PCN: ASPROD1, Group: AME08, ID# [id number], Process claim through MedImpact, for questions: . THIS IS NOT INSURANCE.] Kenalog 40 mg/mL suspension for injection RxNorm: 2773628 1 1/2 Milliliter(s) Inj 04/27/2014 04/27/2014 Inactive [SAVINGS FOR UNINSURED PATIENTS -- BIN:063849, PCN: ASPROD1, Group: AME08, ID# [id number], Process claim through MedImpact, for questions: . THIS IS NOT INSURANCE.] meclizine 25 mg tablet RxNorm: 308990 1 Tablet(s) PO Q6 PRN 05/26/2014 Inactive [SAVINGS FOR UNINSURED PATIENTS -- BIN:421848, PCN: ASPROD1, Group: AME08 , ID# [id number], Process claim through MedImpact, for questions: . THIS IS NOT INSURANCE.] Levaquin 500 mg tablet RxNorm: 100681 1 Tablet(s) PO daily 05/03/2014 Inactive [SAVINGS FOR UNINSURED PATIENTS -- BIN:759913, PCN: ASPROD1, Group: AME08 , ID# [id number], Process claim through eLearning Connections, for questions: . THIS IS NOT INSURANCE.] Cymbalta 30 mg capsule,delayed release RxNorm: 563146 1 Capsule(s) PO daily 03/25/2014 07/22/2014 Inactive Cymbalta 30 mg capsule,delayed release RxNorm: 121167 1 Capsule(s) PO daily 01/28/2014 03/24/2014 Inactive furosemide 20 mg tablet RxNorm: 224967 1 Tablet(s) PO daily TAKE 1 TABLET BY MOUTH ONCE DAILY. 12/22/2013 12/16/2014 Inactive Toprol XL 25 mg tablet,extended release RxNorm: 277209 1 Tablet(s) PO daily 12/22/2013 01/24/2015 Inactive furosemide 20 mg tablet RxNorm: 638594 Tablet(s) PO TAKE 1 TABLET BY MOUTH ONCE DAILY. 12/04/2013 12/21/2013 Inactive prednisone 10 mg tablet RxNorm: 517302 Tablet(s) PO 10/28/2013 11/16/2013 Inactive 60mg d x 4 [id number] daily x 4 [id number] daily x 4 [id number] daily x 8 days5 mg daily x 8 day2.5 mg daily x 8 days2.5 mg qod x 8 doses then stop Toprol XL 25 mg tablet,extended release RxNorm: 652477 1 Tablet(s) PO daily 08/27/2013 12/21/2013 Inactive Macrobid 100 mg capsule RxNorm: 3407408 1 Capsule(s) PO BID 01/201308/24/2013 Inactive Influenza Virus Vaccine 0.5 mL RxNorm: IM 07/23/2013 07/23/2013 Inactive levofloxacin 500 mg tablet RxNorm: 289374 1 Tablet(s) PO daily 04/29/2013 05/03/2013 Inactive amitriptyline 10 mg tablet RxNorm: 725758 1 Tablet(s) PO qhs prn 1/2 to one tablet at bedtime if needed for bladder spasms 04/29/2013 08/20/2013 Inactive Cipro 250 mg tablet RxNorm: 299890 1 Tablet(s) PO BID 201204/23/2013 Inactive Levaquin 500 mg tablet RxNorm: 420185 1 Tablet(s) PO daily 07/201303/30/2013 Inactive Levaquin 500 mg tablet RxNorm: 782555 1 Tablet(s) PO daily 07/201303/23/2013 Inactive furosemide 20 mg tablet RxNorm: 403522 Tablet(s) PO TAKE 1 TABLET BY MOUTH ONCE DAILY. 03/13/2013 12/03/2013 Inactive furosemide 20 mg tablet RxNorm: 976366 Tablet(s) PO TAKE 1 TABLET BY MOUTH ONCE DAILY. 12/09/2012 03/12/2013 Inactive azithromycin 500 mg tablet RxNorm: 346409 1 Tablet(s) PO daily 11/05/2012 11/14/2012 Inactive rohan prieto Kenalog 40 mg/mL Susp for Injection RxNorm: 9594087 2 Milliliter(s) Inj 11/05/2012 11/05/2012 Inactive Cipro 500 mg tablet RxNorm: 452651 1 Tablet(s) PO BID 201102/05/2013 Inactive furosemide 20 mg tablet RxNorm: 905487 Tablet(s) PO 09/09/2012 12/08/2012 Inactive TAKE 1 TABLET BY MOUTH ONCE DAILY. Toprol XL 25 mg tablet,extended release RxNorm: 266634 1 Tablet(s) PO daily this will replace the coreg 08/26/20122012 Inactive Cipro 500 mg tablet RxNorm: 794419 1 Tablet(s) PO BID 201108/26/2012 Inactive Miralax 17 gram Oral Powder Packet RxNorm: 095315 1 PO daily 07/16/2012 Inactive Miralax 17 gram Oral Powder Packet RxNorm: 016821 1 PO daily 08/10/2013 Inactive furosemide 20 mg tablet RxNorm: 912057 Tablet(s) PO 06/10/2012 09/08/2012 Inactive TAKE 1 TABLET BY MOUTH ONCE DAILY. naproxen 500 mg tablet RxNorm: 626523 1 Tablet(s) PO 201105/08/2012 Inactive Cipro 250 mg tablet RxNorm: 134152 1 Tablet(s) PO BID Take 2 tabs BID today then 1 tab BID for the next 5 days 04/19/2012 04/25/2012 Inactive ketorolac 10 mg Tab RxNorm: 482420 1 Tablet(s) PO TID 201104/17/2012 Inactive ketorolac 60 mg/2 mL IM RxNorm: 423712 Milliliter(s) IM 201104/04/2012 Inactive ketorolac 10 mg Tab RxNorm: 852808 1 Tablet(s) PO TID 201104/10/2012 Inactive ciprofloxacin 500 mg Tab RxNorm: 256153 1 Tablet(s) PO BID 04/13/2012 Inactive ciprofloxacin 500 mg Tab RxNorm: 338268 1 Tablet(s) PO BID 04/03/2012 Inactive Coreg 3.125 mg Tab RxNorm: 472280 1 Tablet(s) PO BID 201108/25/2012 Inactive furosemide 20 mg tablet RxNorm: 550867 1 Tablet(s) PO daily 09/09/2011 Inactive Toprol XL 25 mg tablet,extended release RxNorm: 060190 1 Tablet(s) PO daily No Start Date 08/25/2012 Inactive Caltrate 600 + D oral RxNorm: 053198 oral No Start Date 11/02/2015 Inactive hydroxychloroquine 200 mg tablet RxNorm: 335473 1 Tablet(s) PO BID from dr duncan No Start Date 01/27/2014 Inactive Cipro 500 mg tablet RxNorm: 177579 1/2 Tablet(s) PO daily No Start Date 08/18/2013 Inactive Centrum Silver Ultra Women's Tab RxNorm: 1 Tablet(s) PO daily No Start Date 02/01/2016 Inactive Influenza Virus Vaccine 0.5 mL RxNorm: IM No Start Date 02/02/2016 Inactive hydrocodone 5 mg-acetaminophen 325 mg tablet RxNorm: 576434 1-2 Tablet(s) PO Q4- 6H as needed No Start Date 11/02/2015 Inactive prednisone 10 mg tablet RxNorm: 385713 Tablet(s) PO 60mg daily x 3 days, 40mg daily x 3 days, 20mg daily x 3 days, 10mg daily x 3 days, 5mg daily x 3 days, 5mg QOD x 1 week No Start Date 10/27/2013 Inactive Medication Administered Medication Codes Instructions Start Date Status Kenalog 40 mg/mL suspension for injection RxNorm: 7041968 1.5Milliliter 12/06/2018 Active Kenalog 40 mg/mL suspension for injection RxNorm: 2577578 1.5Milliliter 08/15/2017 No longer Active Kenalog 40 mg/mL suspension for injection RxNorm: 4581307 Milliliter 06/21/2016 No longer Active Kenalog 40 mg/mL suspension for injection RxNorm: 4393196 2MilliliterUD 09/17/2014 No longer Active Kenalog 40 mg/mL suspension for injection RxNorm: 0740324 Milliliter 08/03/2014 No longer Active Kenalog 40 mg/mL suspension for injection RxNorm: 8099603 1 1/2Milliliter 04/27/2014 No longer Active Influenza Virus Vaccine 0.5 mL RxNorm: 07/23/2013 No longer Active Kenalog 40 mg/mL Susp for Injection RxNorm: 3529322 2Milliliter 11/05/2012 No longer Active ketorolac 60 mg/2 mL IM RxNorm: 031225 Milliliter 04/04/2012 No longer Active Immunizations Vaccine [...] hTSH II 2.26 uIU/mL 07/10/2017 Comp Metabolic Jdj147 NA 140 mEq/L 07/10/2017 Comp Metabolic Yqh384 K 4.2 mEq/L 07/10/2017 Comp Metabolic Cbh193 CL 106 mEq/L 07/10/2017 Comp Metabolic Ncb190 CO2 26.0 mEq/L 07/10/2017 Comp Metabolic Tdb224 ANION GAP 12 07/10/2017 Comp Metabolic Yar978 GLUCOSE 89 mg/dL 07/10/2017 Comp Metabolic Dqw121 Creat 0.6 mg/dL 07/10/2017 Comp Metabolic Lyw554 eGFR 105 ml/min/1.73m2 07/10/2017 Comp Metabolic Xkj479 BUN 9 mg/dL 07/10/2017 Comp Metabolic Mqz865 B/C Ratio 15.0 Ratio 07/10/2017 Comp Metabolic Bqd804 CALCIUM 9.4 mg/dL 07/10/2017 Comp Metabolic Nje997 ALK PHOS 90 U/L 07/10/2017 Comp Metabolic Dvt257 AST(SGOT) 15 U/L 07/10/2017 Comp Metabolic Rne807 ALT(SGPT) 14 U/L 07/10/2017 Comp Metabolic Rhx487 BILI T 0.5 mg/dL 07/10/2017 Comp Metabolic Aea782 ALBUMIN 4.0 g/dL 07/10/2017 Comp Metabolic Ykq157 TPRO 6.2 g/dL 07/10/2017 Comp Metabolic Qhx713 GLOB 2.2 g/dL 07/10/2017 Comp Metabolic Jeg323 A/G Ratio 1.8 Ratio 07/10/2017 Comp Metabolic Oyh820 Osmo 278 mOsmo 07/10/2017 Cbc With Differential [...] 32.3 pg 07/10/2017 Cbc With Differential Ord2 [place]% 6.2 % 07/10/2017 Cbc With Differential Ord2 [...] 2.19 K/ul 07/10/2017 Cbc With Differential Ord2 [place] ABS# 0.5 K/ul 07/10/2017 Cbc With Differential Ord2 Eos ABS# 0.1 K/ul 07/10/2017 Cbc With Differential Ord2 Baso ABS# 0.0 K/ul 07/10/2017 Culture Urine [id number] URINE CULTURE SEE NOTES 02/05/2017 Urine Culture Ucult Complete >100,000 col/ml aerobic growth sent to ref lab 02/03/2017 Culture Urine [id number] URINE CULTURE SEE NOTES 12/18/2016 Culture Urine [id number] Continued Results 12/18/2016 Urine Culture Ucult Complete [...] 95.7 fl 02/03/2016 Cbc With Differential Ord2 [place]% 6.6 % 02/03/2016 Cbc With Differential Ord2 [...] 2.38 K/ul 02/03/2016 Cbc With Differential Ord2 [place] ABS# 0.5 K/ul 02/03/2016 Cbc With Differential Ord2 Eos ABS# 0.2 K/ul 02/03/2016 Cbc With Differential Ord2 Baso ABS# 0.0 K/ul 02/03/2016 Cbc With Differential Ord2 New Analyzer Notice Please note new ref ranges starting 10-27-2015 due to implemntation of new five part differential hematolgy analyzer. 02/03/2016 Comp Metabolic Kdq314 NA 136 mEq/L 02/03/2016 Comp Metabolic Mvu893 K 4.0 mEq/L 02/03/2016 Comp Metabolic Dts928 CL 102 mEq/L 02/03/2016 Comp Metabolic Tvo778 CO2 28.0 mEq/L 02/03/2016 Comp Metabolic Xbb412 ANION GAP 10 02/03/2016 Comp Metabolic Nio912 GLUCOSE 85 mg/dL 02/03/2016 Comp Metabolic Fvu054 Creat 0.7 mg/dL 02/03/2016 Comp Metabolic Fzy881 eGFR 88 ml/min/1.73m2 02/03/2016 Comp Metabolic Wlm402 BUN 15 mg/dL 02/03/2016 Comp Metabolic Dug631 B/C Ratio 21.4 Ratio 02/03/2016 Comp Metabolic Jff109 CALCIUM 9.2 mg/dL 02/03/2016 Comp Metabolic Qli443 ALK PHOS 81 U/L 02/03/2016 Comp Metabolic Occ040 AST(SGOT) 19 U/L 02/03/2016 Comp Metabolic Ane421 ALT(SGPT) 22 U/L 02/03/2016 Comp Metabolic Pfn658 BILI T 0.5 mg/dL 02/03/2016 Comp Metabolic Tdq841 ALBUMIN 4.1 g/dL 02/03/2016 Comp Metabolic Plg434 TPRO 6.4 g/dL 02/03/2016 Comp Metabolic Xpg307 GLOB 2.3 g/dL 02/03/2016 Comp Metabolic Ihn605 A/G Ratio 1.8 Ratio 02/03/2016 Comp Metabolic Xzq166 Osmo 272 mOsmo 02/03/2016 Tsh Ord6 hTSH II 1.61 uIU/mL 02/03/2016 CRP 20080207 CRP 1.8 MG/DL 08/21/2013 GFR CALC 6150471 GFR AA >60 ML/MIN 08/21/2013 GFR CALC 7085416 GFR NON-AA >60 ML/MIN 08/21/2013 CBC 9296467 WBC 9.0 10e9/L 08/21/2013 CBC 7500354 RBC 4.68 10e12/L 08/21/2013 CBC 0971604 HGB 15.0 g/dL 08/21/2013 CBC 2100004 HCT DET 43.8 % 08/21/2013 CBC 3131227 MCV 93.6 fL 08/21/2013 CBC 5863802 MCH 32.1 pg 08/21/2013 CBC 4799364 MCHC 34.2 g/dL 08/21/2013 CBC 4513938 PLT 267 10e9/L 08/21/2013 CBC 2795293 MPV 9.0 fL 08/21/2013 CBC 4231411 MARGE % 67.8 % 08/21/2013 CBC 6110050 LY % 24.8 % 08/21/2013 CBC 6539356 MON % 6.2 % 08/21/2013 CBC 8405864 EOS % 1.0 % 08/21/2013 CBC 8313932 BASO % 0.2 % 08/21/2013 CBC 4594459 RDW 13.1 % 08/21/2013 CBC 4666952 ABS MARGE 6.10 10e9/L 08/21/2013 CBC 5158031 ABS LYMPH 2.23 10e9/L 08/21/2013 CBC 1522187 ABS MONO 0.56 10e9/L 08/21/2013 CBC 0673692 ABS EOS 0.09 10e9/L 08/21/2013 CBC 9961390 ABS BASO 0.02 10e9/L 08/21/2013 CBC 2974525 RDW-SD 43.9 fL 08/21/2013 TSH 3164773 TSH 1.898 uIU/ML 08/21/2013 MAGNESIUM 9418654 MAGNESIUM 1.7 MEQ/L 08/21/2013 CHEM 14 1231682 AST 16 U/L 08/21/2013 CHEM 14 2753949 ALT 15 IU/L 08/21/2013 CHEM 14 1125139 BUN 14 MG/DL 08/21/2013 CHEM 14 8867185 ALBUMIN 4.4 GM/DL 08/21/2013 CHEM 14 5430572 CHLORIDE 103 MMOL/L 08/21/2013 CHEM 14 4868231 BILI TOT 0.6 MG/DL 08/21/2013 CHEM 14 7571543 ALK PHOS 80 U/L 08/21/2013 CHEM 14 9399145 SODIUM 138 MMOL/L 08/21/2013 CHEM 14 3967747 CREATININE 0.76 MG/DL 08/21/2013 CHEM 14 7636215 CALCIUM 10.2 MG/DL 08/21/2013 CHEM 14 7284351 POTASSIUM 4.0 MMOL/L 08/21/2013 CHEM 14 0517880 PROT TOT 7.0 GM/DL 08/21/2013 CHEM 14 8758590 GLUCOSE 95 MG/DL 08/21/2013 CHEM 14 4714594 BICARB 29 MMOL/L 08/21/2013 CHEM 14 1031210 ANION GAP 6 MEQ/L 08/21/2013 URINALYSIS NONAUTO W/O SCOPE 02885 Specific [place] 1.020 DateTime(Free Text in Aprima) URINALYSIS NONAUTO W/O SCOPE 06237 PH 5.0 DateTime(Free Text in Aprima) URINALYSIS NONAUTO W/O SCOPE 41182 GLUCOSE Negative DateTime(Free Text in Aprima) URINALYSIS NONAUTO W/O SCOPE 94266 Protein Negative DateTime(Free Text in Aprima) URINALYSIS NONAUTO W/O SCOPE 19709 Blood Mod. Blood DateTime( Free Text in Aprima) URINALYSIS NONAUTO W/O SCOPE 00539 Bilirubin Negative DateTime(Free Text in Aprima) URINALYSIS NONAUTO W/O SCOPE 10945 Ketones Negative DateTime(Free Text in Aprima) URINALYSIS NONAUTO W/O SCOPE 40432 Urobilinogen Negative DateTime(Free Text in Aprima) URINALYSIS NONAUTO W/O SCOPE 97571 Nitrite Negative DateTime(Free Text in Aprima) URINALYSIS NONAUTO W/O SCOPE 73944 Leukocytes Negative DateTime(Free Text in Aprima) URINALYSIS NONAUTO W/O SCOPE 90583 Specific [place] 1.010 DateTime(Free Text in Aprima) URINALYSIS NONAUTO W/O SCOPE 85959 PH 6.0 DateTime(Free Text in Aprima) URINALYSIS NONAUTO W/O SCOPE 46902 GLUCOSE neg DateTime( Free Text in Aprima) URINALYSIS NONAUTO W/O SCOPE 57993 Protein neg DateTime( Free Text in Aprima) URINALYSIS NONAUTO W/O SCOPE 63084 Blood 1+ DateTime(Free Text in Aprima) URINALYSIS NONAUTO W/O SCOPE 87127 Bilirubin neg DateTime(Free Text in Aprima) URINALYSIS NONAUTO W/O SCOPE 92626 Ketones neg DateTime( Free Text in Aprima) URINALYSIS NONAUTO W/O SCOPE 84322 Urobilinogen neg DateTime(Free Text in Aprima) URINALYSIS NONAUTO W/O SCOPE 10338 Nitrite neg DateTime( Free Text in Aprima) URINALYSIS NONAUTO W/O SCOPE 36571 Leukocytes 1+ DateTime(Free Text in Aprima) UA 45382 Specific [place] 1.005 DateTime(Free Text in Aprima ) UA 31186 PH 5 DateTime(Free Text in Aprima) UA 11444 GLUCOSE neg DateTime(Free Text in Aprima) UA 96724 Protein neg DateTime(Free Text in Aprima) UA 83144 Blood 1+ DateTime(Free Text in Aprima) UA 78434 Bilirubin neg DateTime(Free Text in Aprima) UA 30577 Ketones neg DateTime(Free Text in Aprima) UA 23863 Urobilinogen neg DateTime(Free Text in Aprima) UA 79364 Nitrite neg DateTime(Free Text in Aprima) UA 41935 Leukocytes 1+ DateTime(Free Text in Aprima) UA 24358 Specific [place] 1.005 DateTime(Free Text in Aprima ) UA 52224 PH 6.0 DateTime(Free Text in Aprima) UA 27681 GLUCOSE neg DateTime(Free Text in Aprima) UA 79549 Protein neg DateTime(Free Text in Aprima) UA 00624 Blood 1+ DateTime(Free Text in Aprima) UA 33923 Bilirubin neg DateTime(Free Text in Aprima) UA 66231 Ketones neg DateTime(Free Text in Aprima) UA 32332 Urobilinogen neg DateTime(Free Text in Aprima) UA 87780 Nitrite neg DateTime(Free Text in Aprima) UA 91335 Leukocytes neg DateTime(Free Text in Apr) Review of Systems System Result Effective Dates [...] tenderness 08/21/2013 None Full Exam - General 1995 Abdomen [...] bilaterally 03/24/2013 None Full Exam - General 1995 Respiratory respiratory effort/rhythm Overall: no retractions 03/24/2013 [...] 04/15/2012 None Full Exam - General 1995 Neck inspection of neck Overall: normal size 04/15/2012 None Full Exam - General 1995 Neck inspection of neck Overall: normal appearance 04/15/2012 None Full Exam - General 1995 Respiratory auscultation Overall: breath sounds clear bilaterally 04/15/2012 None Full Exam - General 1995 Respiratory respiratory effort/rhythm Overall: no retractions 04/15/2012 None Full Exam - General 1994 Respiratory respiratory effort/rhythm Overall: normal rate 04/15/2012 None Full Exam - General 1995 Cardiovascular extremities Overall: no clubbing 04/15/2012 None [...] CPT-4: J3301 12/06/2018 THER/PROPH/DIAG INJ SC/IM CPT-4: 18239 12/06/2018 URINALYSIS NONAUTO W/O SCOPE CPT-4: 81156 11/25/2018 PPPS, SUBSEQ VISIT CPT -4: G0439 09/02/2018 ADMIN INFLUENZA VIRUS VAC CPT-4: G0008 06/18/2018 ADMIN PNEUMOCOCCAL VACCINE SNOMED CT: 65850576 CPT-4: G0009 06/18/2018 PNEUMOCOCCAL VACC [address]: 44874628 CPT-4: 65531 06/18/2018 FLU VAC NO PRSV 4 DONTE 3 YRS+ Formatting Model/CDA Sections, Assigned to/Abigail Mancia CPT-4: 52524Juqhght 06/18/2018 PPPS, SUBSEQ VISIT CPT -4: G0439 08/22/2017 THER/PROPH/DIAG INJ SC/IM CPT-4: 97136 08/15/2017 TRIAMCINOLONE ACET INJ NOS CPT-4: J3301 08/15/[address] TO[address] LIAISON 3-[address]: 949525433 CPT-4: G0436 12/12/2016 URINALYSIS NONAUTO W/O SCOPE CPT-4: 45785 12/12/2016 ADMIN INFLUENZA VIRUS VAC CPT-4: G0008 07/19/2016 FLU VACC 4 DONTE 3 YRS PLUS IM Formatting Model/CDA Sections, Assigned to/Abigail Mancia SNOMED CT: 08470606 CPT-4: 77135Stkzwyc 07/19/2016 TRIAMCINOLONE ACET INJ NOS CPT-4: J3301 06/21/[address] LIAISON 3-[address]: 908745425 CPT-4: G0436 02/02/2016 ADMIN INFLUENZA VIRUS VAC CPT-4: G0008 08/25/2015 FLU VACC PRSV FREE INC ANTIG Formatting Model/CDA Sections, Assigned to/Abigail Mancia CPT-4: 34016Qdxjbwk 08/25/2015 BIOPSY SKIN LESION CPT -4: 33850 02/02/2015 TRIAMCINOLONE ACET INJ NOS CPT-4: J3301 09/15/2014 DRAIN/INJECT JOINT/BURSA CPT-4: 40932 09/15/2014 TRIAMCINOLONE ACET INJ NOS CPT-4: J3301 08/03/2014 ADMIN INFLUENZA VIRUS VAC CPT-4: G0008 06/29/2014 FLU VAC NO PRSV 4 DONTE 3 YRS+ Assigned to/Abigail Mancia CPT-4: [id number] 06/29/2014 TRIAMCINOLONE ACET INJ NOS CPT-4: J3301 04/27/2014 ROUTINE VENIPUNCTURE CPT-4: 10302 08/21/2013 URINALYSIS NONAUTO W/O SCOPE CPT-4: 12544 08/18/2013 PRESCRIP TRANSMIT VIA ERX SY CPT-4: G8553 08/18/2013 ADMIN PNEUMOCOCCAL VACCINE SNOMED CT: [id number] CPT-4: G0009 07/31/2013 Pneumococcal Polysaccharide Vaccine, 23-Valent, Ad CPT-4: 43472 07/31/2013 ADMIN INFLUENZA VIRUS VAC CPT-4: G0008 07/23/2013 FLULAVAL VACC, 3 YRS & >, IM CPT-4: Q2036 07/23/2013 PRESCRIP TRANSMIT VIA ERX SY CPT-4: G8553 04/29/2013 URINALYSIS NONAUTO W/O SCOPE CPT-4: 84502 04/14/2013 URINALYSIS NONAUTO W/O SCOPE CPT-4: 13585 03/24/2013 REMOVAL OF SKIN TAGS <W/15 CPT-4: 19126 02/06/2013 TRIAMCINOLONE ACET INJ NOS CPT-4: J3301 11/05/2012 THER/PROPH/DIAG INJ SC/IM CPT-4: 38693 11/05/2012 PRESCRIP TRANSMIT VIA ERX SY CPT-4: G8553 11/05/2012 URINALYSIS NONAUTO W/O SCOPE CPT-4: 79190 10/31/2012 URINALYSIS NONAUTO W/O SCOPE CPT-4: 55877 09/25/2012 PRESCRIP TRANSMIT VIA ERX SY CPT-4: G8553 09/25/2012 URINALYSIS NONAUTO W/O SCOPE CPT-4: 59373 08/20/2012 PRESCRIP TRANSMIT VIA ERX SY CPT-4: G8553 08/20/2012 ADMIN INFLUENZA VIRUS VAC CPT-4: G0008 07/01/2012 FLULAVAL VACC, 3 YRS & >, IM CPT-4: Q2036 07/01/2012 URINALYSIS NONAUTO W/O SCOPE CPT-4: 10503 04/19/2012 KETOROLAC TROMETHAMINE INJ CPT-4: J1885 04/04/2012 PRESCRIP TRANSMIT VIA ERX SY CPT-4: G8553 04/04/2012 PRESCRIP TRANSMIT VIA ERX SY CPT-4: G8553 04/01/2012 Vital Signs Date Vital 12/06/2018 Blood Pressure 1: 118/64 Code : 8480-6 BMI: 24.3 Code : 05383-7 Heart Rate 1 : 65 bpm Height: 5'8" SpO2: 96% Weight: 160 lbs 11/25/2018 Blood Pressure 1: 150/72 Code : 8480-6 BMI: 24.3 Code : 27734-7 Heart Rate 1 : 65 bpm Height: 5'8" SpO2: 98% Temperature: 36.5 (C) / 97.7 (F) Weight: 160 lbs 10/14/2018 Blood Pressure 1: 140/80 Code : 8480-6 BMI: 24.7 Code : 23764-4 Heart Rate 1 : 59 bpm Height: 5'8" SpO2: 97% Weight: 162 lbs 2 oz 09/02/2018 Blood Pressure 1: 140/76 Code : 8480-6 BMI: 21.9 Code : 25784-2 Heart Rate 1 : 56 bpm Height: 5'8" SpO2: 97% Waist Measure (cm): 94 cm Weight: 144 lbs 05/21/2018 Blood Pressure 1: 136/80 Code : 8480-6 BMI: 24.6 Code : 87898-0 Heart Rate 1 : 57 bpm Height: 5'8" SpO2: 96% Weight: 162 lbs 03/04/2018 Blood Pressure 1: 160/82 Code : 8480-6 BMI: 24.3 Code : 54846-2 Heart Rate 1 : 67 bpm Height: 5'8" SpO2: 99% Temperature: 36.6 (C) / 97.9 (F) Weight: 160 lbs 01/22/2018 Blood Pressure 1: 132/84 Code : 8480-6 BMI: 24.2 Code : 67905-9 Heart Rate 1 : 64 bpm Height: 5'8" SpO2: 95% Weight: 159 lbs 10/22/2017 Blood Pressure 1: 152/78 Code : 8480-6 BMI: 24.0 Code : 52320-7 Heart Rate 1 : 68 bpm Height: 5'8" SpO2: 97% Weight: 158 lbs 08/22/2017 BMI: 24.8 Code: 14493-5 Height: 5'8" Weight: 163 lbs 08/15/2017 Blood Pressure 1: 140/74 Code : 8480-6 Heart Rate 1: 75 bpm Height: 5'8" SpO2: 96% Weight: 06/19/2017 Blood Pressure 1: 146/62 Code : 8480-6 BMI: 25.7 Code : 02685-0 Heart Rate 1 : 64 bpm Height: 5'8" SpO2: 96% Weight: 169 lbs 02/13/2017 Blood Pressure 1: 150/78 Code : 8480-6 BMI: 27.2 Code : 05317-7 Heart Rate 1 : 70 bpm Height: 5'8" SpO2: 96% Weight: 179 lbs 02/05/2017 Blood Pressure 1: 146/74 Code : 8480-6 BMI: 26.9 Code : 64088-6 Heart Rate 1 : 70 bpm Height: 5'8" SpO2: 96% Weight: 177 lbs 02/02/2017 Blood Pressure 1: 124/62 Code : 8480-6 BMI: 26.9 Code : 85678-2 Heart Rate 1 : 54 bpm Height: 5'8" SpO2: 94% Weight: 177 lbs 12/12/2016 Blood Pressure 1: 130/72 Code : 8480-6 BMI: 27.1 Code : 92874-6 Heart Rate 1 : 82 bpm Height: 5'8" SpO2: 95% Weight: 178 lbs 8 oz 06/21/2016 Blood Pressure 1: 136/74 Code : 8480-6 BMI: 25.8 Code : 57524-8 Heart Rate 1 : 86 bpm Height: 5'8" SpO2: 98% Weight: 170 lbs 05/24/2016 Blood Pressure 1: 132/80 Code : 8480-6 BMI: 25.7 Code : 11824-6 Heart Rate 1 : 67 bpm Height: 5'8" SpO2: 96% Weight: 169 lbs 02/02/2016 Blood Pressure 1: 138/80 Code : 8480-6 BMI: 25.8 Code : 31710-4 Heart Rate 1 : 67 bpm Height: 5'8" SpO2: 94% Weight: 170 lbs 11/03/2015 Blood Pressure 1: 138/82 Code : 8480-6 BMI: 26.0 Code : 31607-3 Heart Rate 1 : 80 bpm Height: 5'8" SpO2: 92% Weight: 171 lbs 02/02/2015 Blood Pressure 1: 136/88 Code : 8480-6 BMI: 26.6 Code : 01960-2 Heart Rate 1 : 67 bpm Height: 5'8" SpO2: 97% Temperature: 37.2 (C) / 98.9 (F) Weight: 175 lbs 01/25/2015 Blood Pressure 1: 150/92 Code : 8480-6 BMI: 26.6 Code : 81621-8 Heart Rate 1 : 79 bpm Height: 5'8" SpO2: 98% Weight: 175 lbs 11/26/2014 Blood Pressure 1: 148/92 Code : 8480-6 Blood Pressure 2: 142/92 Code: 8480-6 BMI: 26.5 Code: 48988-8 Heart Rate 1: 68 bpm Height: 5'8" Weight: 174 lbs 09/15/2014 Blood Pressure 1: 150/84 Code : 8480-6 BMI: 26.5 Code : 24495-6 Heart Rate 1 : 80 bpm Height: 5'8" Weight: 174 lbs 08/13/2014 Blood Pressure 1: 140/84 Code : 8480-6 Heart Rate 1: 82 bpm Height: Weight: 08/03/2014 Blood Pressure 1: 142/76 Code : 8480-6 BMI: 26.3 Code : 49333-4 Heart Rate 1 : 80 bpm Height: 5'8" Weight: 173 lbs 07/23/2014 Blood Pressure 1: 148/80 Code : 8480-6 Heart Rate 1: 76 bpm Weight: 175 lbs 06/29/2014 Blood Pressure 1: 140/82 Code : 8480-6 BMI: 26.5 Code : 21533-0 Heart Rate 1 : 60 bpm Height: 5'8" Weight: 174 lbs 04/27/2014 Blood Pressure 1: 112/70 Code : 8480-6 BMI: 26.5 Code : 20800-9 Heart Rate 1 : 72 bpm Height: 5'8" SpO2: 98% Weight: 174 lbs 01/28/2014 Blood Pressure 1: 134/80 Code : 8480-6 BMI: 26.6 Code : 40257-5 Heart Rate 1 : 72 bpm Height: 5'8" Weight: 175 lbs 01/05/2014 Blood Pressure 1: 142/86 Code : 8480-6 BMI: 27.2 Code : 02500-5 Heart Rate 1 : 78 bpm Height: 5'8" Weight: 179 lbs 11/17/2013 Blood Pressure 1: 118/62 Code : 8480-6 BMI: 27.1 Code : 64756-8 Heart Rate 1 : 76 bpm Height: 5'8" Weight: 178 lbs 08/27/2013 Blood Pressure 1: 126/80 Code : 8480-6 BMI: 26.6 Code : 89267-3 Heart Rate 1 : 72 bpm Height: [...] Code : 8480-6 BMI: 26.5 Code : 25382-6 Heart Rate 1 : 72 bpm Height: 5'8" Weight: 174 lbs 8 oz 03/24/2013 Blood Pressure 1: 11278 Code : 8480-6 BMI: 26.2 Code : 84192-5 Heart Rate 1 : 72 bpm Height: [...] encounter[ICD10: T50.905A] [facility] CPT-4: 90852 12/06/2018 ([id number]) 05739 EST. PATIENT, LEVEL IV Diagnosis: Essential (primary) hypertension[ICD10: I10] Diagnosis: Dysuria[ICD10: R30.0] Diagnosis: Personal history of urinary (tract) infections[ICD10: Z87.440] [facility] CPT-4: 00715 11/25/2018 ([id number]) 82147 EST. PATIENT, LEVEL III Diagnosis: Diverticulitis of large intestine without perforation or abscess without bleeding[ICD10: K57.32] [facility] CPT-4: 15012 10/14/2018 ([id number]) 62826 EST. PATIENT, LEVEL IV Diagnosis: Essential (primary) hypertension[ICD10: I10] Diagnosis: Tobacco use[ICD10: Z72.0] Diagnosis: Functional diarrhea[ICD10: K59.1] Tessa George MD, [facility] CPT-4: 34193 05/21/2018 ([id number]) 54834 EST. PATIENT, LEVEL III Diagnosis: Insect bite (nonvenomous) of abdominal wall, initial encounter[ICD10 : S30.861A] Tessa George MD, [facility] CPT-4: 96054 ([id number]) 52007 EST. PATIENT, LEVEL IV Diagnosis: Essential (primary) hypertension[ICD10: I10] Diagnosis: Tobacco use[ICD10: Z72.0] Diagnosis: Functional diarrhea[ICD10: K59.1] Tessa George MD, [facility] CPT-4: 23082 01/22/2018 ([id number]) 52831 EST. PATIENT, LEVEL III Diagnosis: Essential (primary) hypertension[ICD10: I10] Diagnosis: Functional diarrhea[ICD10: K59.1] Tessa George MD, [facility] CPT-4: 47503 10/22/2017 33018 EST. PATIENT, LEVEL III Diagnosis: Rash and other nonspecific skin eruption[ICD10: R21] Brooke George MD, [facility] CPT-4: 96739 08/15/2017 ([id number]) 03943 EST. PATIENT, LEVEL IV Diagnosis: Essential (primary) hypertension[ICD10: I10] Diagnosis: Functional diarrhea[ICD10: K59.1] Diagnosis: Epigastric pain[ICD10: R10.13] Tessa George MD, [facility] CPT- 4: 18121 06/19/2017 ([id number]) 35935 EST. PATIENT, LEVEL IV Diagnosis: Essential (primary) hypertension[ICD10: I10] Diagnosis: Epigastric pain[ICD10: R10.13] Tessa George MD, [facility] CPT- 4: 59008 02/13/2017 63464 EST. PATIENT, LEVEL IV Diagnosis: Low back pain[ICD10: M54.5] Brooke George MD, [facility] CPT-4 : 35246 02/05/2017 43036 EST. PATIENT, LEVEL IV Diagnosis: Dysuria[ICD10: R30.0] Diagnosis: Low back pain[ICD10: M54.5] Brooke George MD, [facility] CPT-4 : 91600 02/02/2017 ([id number]) 62046 EST. PATIENT, LEVEL IV Diagnosis: Essential (primary) hypertension[ICD10: I10] Diagnosis: Dysuria[ICD10: R30.0] Diagnosis: Tobacco use[ICD10: Z72.0] Tessa George MD, [facility] CPT-4: 22601 12/12/2016 83011 EST. PATIENT, LEVEL IV Diagnosis: Other acute sinusitis[ICD10: J01.80] Diagnosis: Other allergic rhinitis[ICD10: J30.89] Brooke George MD, [facility] CPT-4: 72763 06/21/2016 ([id number]) 41351 EST. PATIENT, LEVEL III Diagnosis: Essential (primary) hypertension[ICD10: I10] Diagnosis: Major depressive disorder, single episode, unspecified[ICD10: F32.9] Tessa George MD, [facility] CPT-4: 23353 05/24/2016 ([id number]) 88711 EST. PATIENT, LEVEL IV Diagnosis: Essential (primary) hypertension[ICD10: I10] Diagnosis: Major depressive disorder, single episode, unspecified[ICD10: F32.9] Diagnosis: Tobacco use[ICD10: Z72.0] Tessa George MD, [facility] CPT-4: 05674 02/02/2016 ([id number]) 40473 EST. PATIENT, LEVEL IV Diagnosis: Essential (primary) hypertension[ICD10: I10] Diagnosis: Polymyalgia rheumatica[ICD10: M35.3] Diagnosis: Major depressive disorder, single episode, unspecified[ICD10: F32.9] Tessa George MD, [facility] CPT-4: 24317 11/03/2015 ([id number]) Miscellaneous no charge Diagnosis: Hyperpigmented skin lesion[ICD9: 709.00] Tessa George MD, [facility] CPT-4: 19643 02/12/2015 ([id number]) 19196 EST. PATIENT, LEVEL IV Diagnosis: ESSENTIAL HYPERTENSION[ICD9: 401.9] Diagnosis: DEPRESSIVE DISORDER NEC[ICD9: 311] Diagnosis: POLYMYALGIA RHEUMATICA[ICD9: 725] Tessa George MD, [facility] CPT-4: 50297 01/25/2015 ([id number]) 83304 EST. PATIENT, LEVEL IV Diagnosis: ESSENTIAL HYPERTENSION[ICD9: 401.9] Diagnosis: Polymyalgia rheumatica syndrome[ICD9: 725] Diagnosis: Smoking[ICD9: 305.1] Tessa George MD, [facility] CPT-4: 45281 11/26/2014 ([id number]) 59955 EST. PATIENT, LEVEL III Diagnosis: ESSENTIAL HYPERTENSION[ICD9: 401.9] Diagnosis: Sacroiliitis[ICD9: 720.2] Tessa George MD, [facility] CPT-4: 88901 09/15/2014 ([id number]) 70330 EST. PATIENT, LEVEL III Diagnosis: Hip pain[ICD9: 719.45] Diagnosis: Sacroiliac pain[ICD9: 724.6] Tessa George MD, [facility] CPT- 4: 45262 08/13/2014 ([id number]) 15137 EST. PATIENT, LEVEL III Diagnosis: ACUTE SINUSITIS[ICD9: 461.9] Diagnosis: ALLERGIC RHINITIS[ICD9: 477.9] Aviva George MD, [facility] CPT-4: 33183 08/03/2014 ([id number]) 21360 EST. PATIENT, LEVEL IV Diagnosis: ESSENTIAL HYPERTENSION[ICD9: 401.9] Diagnosis: DEPRESSIVE DISORDER NEC[ICD9: 311] Diagnosis: POLYMYALGIA RHEUMATICA[ICD9: 725] Tessa George MD, [facility] CPT-4: 42560 07/23/2014 ([id number]) 61244 EST. PATIENT, LEVEL IV Diagnosis: ESSENTIAL HYPERTENSION[ICD9: 401.9] Diagnosis: DEPRESSIVE DISORDER NEC[ICD9: 311] Diagnosis: POLYMYALGIA RHEUMATICA[ICD9: 725] Diagnosis: VACCIN FOR INFLUENZA[ICD10: Z23] Tessa George MD, [facility] CPT-4: 91326 06/29/2014 ([id number]) 89240 EST. PATIENT, LEVEL III Diagnosis: ACUTE MAXILLARY SINUSITIS[ICD9: 461.0] Diagnosis: BPPV (benign paroxysmal positional vertigo)[ICD9: 386.11] Aviva George MD , [facility] CPT-4: 59802 04/27/2014 ([id number]) 67541 EST. PATIENT, LEVEL III Diagnosis: ESSENTIAL HYPERTENSION[SNOMED: 05358856] Diagnosis: Fatigue[ICD9: 780.79] Diagnosis: DEPRESSIVE DISORDER NEC[ICD9: 311] Tessa George MD, [facility] CPT-4: 58786 01/28/2014 ([id number]) 27135 EST. PATIENT, LEVEL III Diagnosis: ESSENTIAL HYPERTENSION[SNOMED: 57469514] Diagnosis: Blurry vision, bilateral[ICD9: 368.8] Tessa George MD, [facility] CPT-4: 02747 01/05/2014 ([id number]) 25286 EST. PATIENT, LEVEL IV Diagnosis: POLYMYALGIA RHEUMATICA[ICD9: 725] Diagnosis: PAIN IN LIMB[ICD9: 729.5] Diagnosis: ESSENTIAL HYPERTENSION[SNOMED: 07982401] Tessa George MD, [facility] CPT-4: 46649 11/17/2013 ([id number]) 19674 EST. PATIENT, LEVEL III Diagnosis: Polymyalgia rheumatica syndrome[ICD9: 725] Tessa George MD, [facility] CPT-4: 70339 08/27/2013 ([id number]) 45169 EST. PATIENT, LEVEL III Diagnosis: ESSENTIAL HYPERTENSION[SNOMED: 79369263] Diagnosis: Fatigue[ICD9: 780.79] Tessa George MD, [facility] CPT-4: 20427 08/21/2013 ([id number]) 25866 EST. PATIENT, LEVEL III Diagnosis: Urinary tract infection[ICD9: 599.0] Diagnosis: ESSENTIAL HYPERTENSION[SNOMED: 75371544] Aviva George MD, [facility] CPT-4: 30915 08/18/2013 ([id number]) 86353 EST. PATIENT, LEVEL IV Diagnosis: ESSENTIAL HYPERTENSION[SNOMED: 57140670] Diagnosis: HEMATURIA NOS[ICD9: 599.70] Diagnosis: CHRONIC INTERSTITIAL CYSTITIS[ICD9: 595.1] Tessa George MD [facility] CPT-4: 38871 04/29/2013 ([id number]) 49264 EST. PATIENT, LEVEL III Diagnosis: Recurrent urinary tract infection[ICD9: 599.0] Diagnosis: DYSURIA[ICD9: 788.1] Tessa George MD [facility] CPT-4: 10137 03/24/2013 ([id number]) 09679 EST. PATIENT, LEVEL IV Diagnosis: ESSENTIAL HYPERTENSION[SNOMED: 77386118] Diagnosis: HYPERLIPIDEMIA[ICD9: 272.4] Diagnosis: Irritated nevus of neck[ICD9: 216.4] Tessa George MD [facility] CPT-4: 13583 02/06/2013 ([id number]) 25357 EST. PATIENT, LEVEL III Diagnosis: ACUTE MAXILLARY SINUSITIS[ICD9: 461.0] Diagnosis: ACUTE URI[ICD9: 465.9] Diagnosis: COUGH[ICD9: 786.2] Tessa George MD [facility] CPT-4: 54608 11/05/2012 ([id number]) 18437 EST. PATIENT, LEVEL III Diagnosis: ESSENTIAL HYPERTENSION[SNOMED: 99051566] Diagnosis: ILL-DEFINE CONDITION NEC[ICD9: 799.89] Tessa George MD [facility] CPT-4: 90148 10/31/2012 ([id number]) 49573 EST. PATIENT, LEVEL III Diagnosis: ESSENTIAL HYPERTENSION[SNOMED: 32651374] Tessa George MD [facility] CPT-4: 46841 09/03/2012 ([id number]) 91099 EST. PATIENT, LEVEL III Diagnosis: UTI[ICD9: 599.0] Diagnosis: Microscopic hematuria[ICD9: 599.72] Diagnosis: ESSENTIAL HYPERTENSION[SNOMED: 92013542] Tessa George MD [facility] CPT-4: 17825 08/20/2012 ([id number]) 49322 EST. PATIENT, LEVEL IV Diagnosis: Constipation - functional[ICD9: 564.09] Diagnosis: Abdominal pain[ICD9: 789.00] Tessa George MD [facility] CPT- 4: 73886 07/16/2012 ([id number]) 35467 EST. PATIENT, LEVEL IV Diagnosis: ESSENTIAL HYPERTENSION[SNOMED: 85145310] Diagnosis: Fatigue[ICD9: 780.79] Diagnosis: Constipation - functional[ICD9: 564.09] Tessa George MD [facility] CPT-4: 00865 07/01/2012 ([id number]) 32179 EST. PATIENT, LEVEL III Diagnosis: ESSENTIAL HYPERTENSION[SNOMED: 62294431] Diagnosis: HEADACHE[ICD9: 784.0] Tessa George MD [facility] CPT-4: 11608 05/08/2012 25155 EST. PATIENT, LEVEL IV Diagnosis: Urinary tract infection[ICD9: 599.0] Diagnosis: ESSENTIAL HYPERTENSION[SNOMED: 69671996] Diagnosis: Fatigue[ICD9: 780.79] Tessa George MD [facility] CPT-4: 33877 04/19/2012 ([id number]) 63995 EST. PATIENT, LEVEL IV Diagnosis: ESSENTIAL HYPERTENSION[SNOMED: 52031854] Diagnosis: Mouth dryness[ICD9: 527.7] Diagnosis: HEADACHE[ICD9: 784.0] Diagnosis: CERVICALGIA[ICD9: 723.1] Tessa George MD [facility] CPT-4: 42109 04/15/2012 ([id number]) 98663 EST. PATIENT, LEVEL IV Diagnosis: Urinary tract infection[ICD9: 599.0] Diagnosis: Generally unwell[ICD9: 799.89] Diagnosis: ESSENTIAL HYPERTENSION[SNOMED: 09055536] Diagnosis: MYALGIA AND MYOSITIS[ICD9: 729.1] Tessa George MD [facility] CPT-4: 88856 04/04/2012 ([id number]) 85872 EST. PATIENT, LEVEL IV Diagnosis: ESSENTIAL HYPERTENSION[SNOMED: 16919286] Diagnosis: Unsteady gait[ICD9: 781.2] Diagnosis: Neck pain[ICD9: 723.1] Tessa George MD, [facility] CPT-4: 64485 04/01/2012 ([id number]) Patient admitted to the hospital from clinic (NO CHARGE) Diagnosis: Pericardial rub[ICD9: 785.3] Diagnosis: ESSENTIAL HYPERTENSION[SNOMED: 13041144] Diagnosis: HEADACHE[ICD9: 784.0] Diagnosis: Arm pain[ICD9: 729.5] [facility] CPT-4: 88738K 03/20/2012 Plan of Care Planned Activity Notes Codes Status Date Visit Plan: Allergic Reaction/Hives - discussed diagnosis with patient, need to avoid allergen, and when/if the patient should go to the emergency room. Pt was instructed to take benadryl 25mg q 6 hours x 48 hours, and pepcid 20mg bid x 48 hours, pt also given RX for prednisone taper. 12/06/2018 Patient Education: Patient Medication Summary Completed [...] not improve. 11/25/2018 Appointment: Tessa George WPtel: [facility]5 [facility] (15 min) Moderate 11/25/2018 Patient Education: [...] better by sunday10/14/2018 Appointment: Tessa George WPtel: [facility] (15 min) Moderate 10/14/2018 Patient Education: Patient Medication Summary Completed 10/14/2018 Appointment: Tessa George WPtel: [facility] (15 min) Moderate 09/24/2018 Visit Plan: Medicare [...] care surrogate. 09/02/2018 Appointment: Brooke Dominguez WPtel: [facility]4 [facility] [place] [address] - Annual Wellness Visit 09/02/2018 Patient Education: [...] monitor symptoms. 05/21/2018 Appointment: Tessa George WPtel: [address] [place], [place] [phone] (15 min) Moderate 05/21/2018 Patient Education: Patient Medication Summary Completed 05/21/2018 Visit Plan: tick bite - rx for doxycycline - and use benadryl cream on the tick bites to help decrease itching 03/04/2018 Appointment: Tessa George WPtel: [facility]7 [facility] (15 min) Moderate 03/04/2018 Patient Education: Patient [...] strategies. 01/22/2018 Appointment: [phone] [facility] (15 min) Moderate 01/22/2018 Patient Education: Patient [...] resolved. 10/22/2017 Appointment: [phone] [facility] (15 min) Moderate 10/22/2017 Patient Education: Patient [...] prednisone taper. 08/15/2017 [facility]ment[phone] (30 min) Complex 08/15/2017 Patient Education: [...] at home. 06/19/2017 Appointment: Tessa George WPtel: [phone] [facility] (15 min) Moderate 06/19/2017 Patient Education: Patient [...] abdomen 02/13/2017 Appointment: [phone] [facility] [place] (15 min) Moderate 02/13/2017 Patient Education: [...] improve. 02/05/2017 Appointment: Brooke Dominguez WPtel: [phone] [facility] (15 min) Moderate 02/05/2017 Patient Education: Patient [...] not improve. 02/02/2017 Appointment: Brooke Dominguez WPtel: [phone] [facility] (15 min) Moderate 02/02/2017 Patient Education: Patient [...] of stopping. 12/12/2016 Appointment: Tessa George WPtel: [phone] [facility] (15 min) Moderate 12/12/2016 Patient Education: [...] allergy spray. 06/21/2016 Appointment: Aviva Patton WPtel: [facility]9 [facility] (15 min) Moderate 06/21/2016 Patient Education: Patient [...] weeks. 02/02/2015 Appointment: [phone] [facility] [facility] Procedure 02/02/2015 Patient Education: Patient Medication [...] another smoker. 11/26/2014 Appointment: Tessa George WPtel: [address] [place], [place] [phone] Follow up 11/26/2014 Patient Education: Patient Medication [...] at home. 09/15/2014 Appointment: Tessa George WPtel: [facility]3 [place] [phone] Follow up 09/15/2014 Patient Education: Patient Medication Summary Completed 09/15/2014 Visit Plan: Hip pain - stat xray right hip - antiinflammatories. Pt to use heat to hip, monitor symptoms - and pt to call if not improving, pt to be called with hip xray report. 08/13/2014 Appointment: Tessa George WPtel: [facility] Sick 08/13/2014 Patient Education: Patient Medication [...] daily. 07/23/2014 Appointment: [phone] [facility] Follow up 07/23/2014 Patient Education: Patient Medication [...] today 06/29/2014 Appointment: [facility]el[facility] [phone] [facility] Follow up 06/29/2014 Patient Education: Patient Medication [...] on cymbalta. 01/28/2014 Appointment: Tessa George WPtel: [facility]4 [facility] Follow up 01/28/2014 Patient Education: Patient Medication [...] Dr. Benites. 01/05/2014 Appointment: Tessa George WPtel: [address] [place], [place] [phone] Follow up 01/05/2014 Patient Education: Patient Medication Summary Completed 01/05/2014 Patient Education: Hypertension Completed 01/05/2014 Appointment: Tessa George WPtel: [address] [place], [place] [phone] Follow up 11/27/2013 Visit Plan: Hypertension - [...] for pain 11/17/2013 Appointment: Tessa George WPtel: [facility]6 [facility] Other 11/17/2013 Patient Education: Patient Medication Summary Completed 11/17/2013 Patient Education: Hypertension Completed 11/17/2013 Appointment: Tessa George WPtel: [facility] Lab Draw 10/29/2013 Visit Plan: Polymyalgia Rheumatica [...] effects. 08/27/2013 Appointment: [facility]Ptel[phone] [facility] Follow up 08/27/2013 Patient Education: Patient Medication [...] not improve. 08/18/2013 Appointment: Aviva Patton WPtel: [phone] [place] Other 08/18/2013 Patient Education: Patient Medication Summary Completed 08/18/2013 Patient Education: Hypertension Completed 08/18/2013 Appointment: Aviva Patton [facility]Ptel[facility] [phone] [phone] [place] Injection 07/31/2013 Patient Education: Patient Medication Summary Completed 07/31/2013 Appointment: Aviva Patton WPtel: [phone] [phone] [place] Injection 07/23/2013 Patient Education: Patient Medication [...] of dysuria. 04/29/2013 Appointment: Tessa George WPtel: [facility]0 [facility] Follow up 04/29/2013 Patient Education: Patient Medication Summary Completed 04/29/2013 Patient Education: Hypertension Completed 04/29/2013 Appointment: Tessa George WPtel: [facility]5 [facility] Lab Draw 04/14/2013 Patient Education: Patient Medication Summary Completed 04/14/2013 Visit Plan: DYSURIA - WITH RECURRENT UTI - WILLGIVE ANTIBIOTIC AND REFER PT TO SEE DR. CHOW ABOUT RECTOCELE AND CYSTOCELE. 03/24/2013 Appointment: Tessa George WPtel: [facility]5 [facility] Other 03/24/2013 Patient Education: Patient Medication [...] silver nitrate. 02/06/2013 Appointment: Tessa George WPtel: [address] [place], [place] [phone] Follow up 02/06/2013 Patient Education: Patient Medication Summary Completed 02/06/2013 Patient Education: Hypertension Completed 02/06/2013 Visit Plan: Sinusitis - Pt has acute infection - pain in face, maxillary region, Pt informed to use decongestant, RX given to patient, sinus rinses also recommended. Call if symptoms do not show improvement. 11/05/2012 Appointment: Tessa George WPtel: [address] [place], [place] [phone] Other 11/05/2012 Patient Education: Patient Medication Summary [...] call clinic. 10/31/2012 Appointment: Tessa George WPtel: [facility]5 [facility] Follow up 10/31/2012 Patient Education: Patient [...] Dr. Ordoñez 09/25/2012 Appointment: Tessa George WPtel: [facility]1 [facility] Follow up 09/25/2012 Patient Education: Patient [...] home. 09/03/2012 Appointment: Tessa George WPtel: [phone] [facility] Follow up 09/03/2012 Patient Education: Patient [...] for review. 08/20/2012 Appointment: Aviva Patton WPtel: [facility]5 [phone] Follow up 08/20/2012 Patient Education: Patient Medication [...] miralax 07/16/2012 Appointment: Aviva Patton WPtel: [phone] [phone] Sick 07/16/2012 Patient Education: Patient Medication Summary [...] kn benefiber 07/01/2012 Appointment: Tessa George WPtel: [facility]7 [place] [phone] Follow up 07/01/2012 Patient Education: Patient Medication [...] in stopping. 05/08/2012 Appointment: Tessa George WPtel: [phone] [facility] [facility] 05/08/2012 Patient Education: Patient [...] acute concerns. 04/19/2012 Appointment: Aviva Patton WPtel: [facility]5 [id number] Other 04/19/2012 Patient Education: Patient Medication [...] the coreg. 04/15/2012 Appointment: Tessa George WPtel: [facility]3 [facility] Follow up 04/15/2012 Patient Education: Patient Medication Summary Completed 04/15/2012 Patient Education: High Blood Pressure: Essential Hypertension Completed 2011 Appointment: Tessa George WPtel: [facility] Lab Draw 04/08/2012 Visit Plan: UTI - [...] the medication. 04/04/2012 Appointment: Tessa George WPtel: [phone] [facility] Other 04/04/2012 Patient Education: Patient Medication [...] 3.125mg bid 04/01/2012 Appointment: [phone] [place] Other 04/01/2012 Patient Education: Patient Medication Summary Completed 04/01/2012 Patient Education: High Blood Pressure: Essential Hypertension Completed 2011 Visit Plan: Pericardial xdh-DDR-Ewirdjdr-arm pain-history of shingles-Dr. George in to evaluate [...] AND EVALUATION OF THE ACUTE ILLNESS. Pericardial ljm-YRW-Ayaslgvs-arm pain-history of shingles- Dr. George in to evaluate patient-plan to admit for further work up and close monitoring. Plan to get labs STAT including a cardiac panel. A stat echo has also been ordered as well with cardiology consult. 03/20/2012 App[facility]ment: [facility] Pat[phone] [place] Other 03/20/2012 Patient Education: Patient Medication Summary Completed 03/20/2012 Patient Education: High Blood Pressure: Essential Hypertension Completed 2011 Appointment: Aviva Pattontel: [id number] Other 08/30/2011 Instructions Comment hold the flexeril start on the LEVSIN [...] needed for spasms of the abdomen . Headache - Start on the Naprosyn [...] - continue with cymbalta . Hypertension - well controlled - continue [...] spray in the nasal steroid allergy spray. take benadryl 25mg every 6 hours x [...] also given RX for prednisone taper. . Hypertension - well controlled - continue [...] will remove the sutures in 2 weeks. toprol 1/2 pill twice daily. Hypertension - [...] Will give RX after review of labs. Monitor your blood pressure at home and [...] and bases cauterized with silver nitrate. . Medicare Exam - today we discussed [...] to call if symptoms do not improve. increase cymbalta to 60mg daily (ok to [...] at home. flu shot today . Pericardial lem-HRV-Hqrjaxdf-arm pain-history of shingles -Dr. George in to [...] AND EVALUATION OF THE ACUTE ILLNESS. Pericardial uux-AKT-Lwbrxbzm-arm pain-history of shingles-Dr. George in to evaluate [...] on tobacco intake with goal of stopping. Increase your probiotic to twice daily I [...] change in blood pressure readings at home. take benadryl 25mg every 6 hours x [...] SEE DR. CHOW ABOUT RECTOCELE AND CYSTOCELE. accuflora - 14billion unit - take while [...] not feeling any better by sunday . STOP THE DOXYCYCLINE, START ON CIPROFLOXACIN [...]
--- OUTSIDE RECORDS SUMMARY | 2019-01-26 14:43 | XMS REPORT | CCD ---
Author Author Aviva Patton Organization [facility] Address [address] [place] [address] Phone Care Team Providers Care Log Snaker Name Role Phone [facility] Unavailable CCM Unavailable Summary Purpose Interface Exchange Insurance Providers Payer name Policy type / Coverage type Covered republican ID Effective Begin Date Effective End Date WPS Medicare Part B Medicare Part B [id number] Unknown FOR LIFE WPS Medicare Part B [id number] Unknown Family history Mother Diagnosis Age At Onset Myocardial infarction Unknown Father Diagnosis Age At Onset Cancer Unknown bladder cancer Unknown Myocardial infarction Unknown Brother Diagnosis Age At Onset Myocardial infarction Unknown Social History Social History Element Codes Description Effective Dates Marital status Unknown 02/02/[address]: 60218437 Current every day smoker 02/02/2016 Number of children Unknown 2 sons living and well 03/20/2012 Living arrangements Unknown House 03/20/2012 Employment Unknown Retired 03/20/2012 Number of years using tobacco Unknown 40 03/20/2012 Number of cigarettes/day Unknown 10 ( Half a pack) 03/20/[address]: 907973652 Never drinks alcohol 03/20/2012 Allergies, Adverse Reactions, Alerts Substance Reaction Codes Entered Date Inactivated Date Status * NO KNOWN FOOD ALLERGIES Unknown 07/01/2012 No Inactive Date Active cephalexin RxNorm: 2231 04/19/2012 No Inactive Date Active SULFA(SULFONAMIDE ANTIBIOTICS) Unknown 04/19/2012 No Inactive Date Active METRONIDAZOLE Unknown 01/22/2018 No Inactive Date Active Past Medical History Illness Codes Condition Status Onset Date Resolved Date Dysuria ICD-9: 788.1 ICD-10: R30.0 Active 12/12/2016 [...] Problems Condition Codes Effective Dates Condition Status Dysuria ICD-9: 788.1 ICD-10: R30.0 12/12/2016 Active [...] Start Date Stop Date Status Fill Instructions Augmentin 875 mg-125 mg tablet RxNorm: 684390 1 Tablet(s) PO BID 11/26/2018 12/02/2018 Active Levaquin 500 mg tablet RxNorm: 965659 1 Tablet(s) PO daily 08/201911/29/2018 Active furosemide 20 mg tablet RxNorm: 806147 TAKE 1 TABLET DAILY No Stop Date Active Augmentin 875 mg-125 mg tablet RxNorm: 918504 1 Tablet(s) PO BID 10/14/2018 10/23/2018 Inactive doxycycline hyclate 100 mg tablet RxNorm: 160323 1 Tablet(s) PO BID 03/04/2018 03/10/2018 Inactive Pepcid AC 20 mg tablet RxNorm: 158307 1 Tablet(s) PO BID 201704/16/2019 Active pt requested a 90 day supply please Pepcid AC 20 mg tablet RxNorm: 394723 1 Tablet(s) PO BID 201701/21/2018 Inactive Pepcid AC 20 mg tablet RxNorm: 349760 1 Tablet(s) PO BID 201701/17/2018 Inactive Pepcid AC 20 mg tablet RxNorm: 567608 1 Tablet(s) PO BID 201712/18/2017 Inactive Flagyl 500 mg tablet RxNorm: 631527 1 Tablet(s) PO TID 201712/28/2017 Inactive Cymbalta 60 mg capsule,delayed release RxNorm: 295862 1 CAPSULE(S) PO DAILY 1 CAPSULE(S) PO DAILY 12/14/2017 No Stop Date Active Toprol XL 25 mg tablet,extended release RxNorm: 725277 1 TABLET(S) PO BID 12/14/2017 No Stop Date Active furosemide 20 mg tablet RxNorm: 375715 TAKE 1 TABLET DAILY 11/06/2018 Inactive Kenalog 40 mg/mL suspension for injection RxNorm: 7199847 1.5 Milliliter(s) Inj 08/15/2017 08/15/2017 Inactive triamcinolone acetonide 0.025 % topical cream RxNorm: 3685379 1 Application TOP BID as needed 08/15/2017 08/19/2017 Inactive prednisone 20 mg tablet RxNorm: 447886 2 Tablet(s) PO daily 10/201608/19/2017 Inactive Flagyl 500 mg tablet RxNorm: 430623 1 Tablet(s) PO TID 201608/10/2017 Inactive Flagyl 500 mg tablet RxNorm: 161720 1 Tablet(s) PO TID 201607/31/2017 Inactive Questran 4 gram powder for susp in a packet RxNorm: 518269 1/2 packet PO QID 06/19/2017 01/14/2018 Inactive Levsin/SL 0.125 mg sublingual tablet RxNorm: 2400915 1 Tablet(s) SL QID as needed abdominal pain or abdominal spasms 02/13/2017 08/19/2017 Inactive cyclobenzaprine 5 mg tablet RxNorm: 402468 1 Tablet(s) PO TID as needed 02/08/2017 02/12/2017 Inactive cyclobenzaprine 5 mg tablet RxNorm: 228267 1 Tablet(s) PO TID as needed 02/05/2017 02/07/2017 Inactive Cipro 250 mg tablet RxNorm: 091269 1 Tablet(s) PO BID 201602/11/2017 Inactive Cymbalta 60 mg capsule,delayed release RxNorm: 739159 1 Capsule(s) PO daily 1 CAPSULE(S) PO DAILY 12/18/2016 12/12/2017 Inactive Toprol XL 25 mg tablet,extended release RxNorm: 951084 1 Tablet(s) PO BID 12/18/2016 12/12/2017 Inactive [SAVINGS FOR NON-COVERED DRUGS -- BIN:[id number], PCN: ASPROD1, Group: XXXXX, ID# [id number], Questions: . THIS IS NOT INSURANCE.] ciprofloxacin 500 mg tablet RxNorm: 744251 1 Tablet(s) PO BID 12/12/2016 12/17/2016 Inactive furosemide 20 mg tablet RxNorm: 007358 TAKE 1 TABLET DAILY 12/201611/11/2017 Inactive levofloxacin 500 mg tablet RxNorm: 477090 1 Tablet(s) PO daily 06/21/2016 06/25/2016 Inactive Kenalog 40 mg/mL suspension for injection RxNorm: 3883461 Milliliter(s) Inj 06/21/2016 06/21/2016 Inactive hydrocodone 5 mg-acetaminophen 325 mg tablet RxNorm: 361181 1-2 Tablet(s) PO Q4- 6H as needed 11/03/2015 02/01/2016 Inactive Cymbalta 60 mg capsule,delayed release RxNorm: 769435 1 Capsule(s) PO daily 1 CAPSULE(S) PO DAILY 11/03/2015 12/17/2016 Inactive furosemide 20 mg tablet RxNorm: 363781 Tablet(s) TAKE 1 TABLET ONCE DAILY 11/03/2015 11/16/2016 Inactive Toprol XL 25 mg tablet,extended release RxNorm: 758508 2 Tablet(s) PO daily 11/03/2015 12/17/2016 Inactive [SAVINGS FOR NON-COVERED DRUGS -- BIN:204077, PCN: ASPROD1, Group: XXXXX, ID# [id number], Questions: . THIS IS NOT INSURANCE.] Cymbalta 60 mg capsule,delayed release RxNorm: 055744 1 Capsule(s) PO daily 1 CAPSULE(S) PO DAILY 05/31/2015 11/02/2015 Inactive Toprol XL 25 mg tablet,extended release RxNorm: 877041 2 Tablet(s) PO daily 01/25/2015 11/02/2015 Inactive [SAVINGS FOR NON-COVERED DRUGS -- BIN:115789, PCN: ASPROD1, Group: XXXXX, ID# [id number], Questions: . THIS IS NOT INSURANCE.] Voltaren 1 % topical gel RxNorm: 412345 2 Gram(s) TOP QID to hands 01/25/2015 05/24/2015 Inactive [SAVINGS FOR NON-COVERED DRUGS -- BIN:647747, PCN: ASPROD1, Group : XXXXX, ID# [id number], Questions: . THIS IS NOT INSURANCE.] furosemide 20 mg tablet RxNorm: 313038 TAKE 1 TABLET ONCE DAILY 12/17/2014 11/02/2015 Inactive Kenalog 40 mg/mL suspension for injection RxNorm: 2812763 2 Milliliter(s) Inj UD 09/17/2014 09/17/2014 Inactive [SAVINGS FOR UNINSURED PATIENTS -- BIN:793434, PCN: ASPROD1, Group: AME08, ID# [id number], Process claim through MedImpact, for questions: . THIS IS NOT INSURANCE.] Levaquin 500 mg tablet RxNorm: 282563 1 Tablet(s) PO daily 08/16/2014 Inactive [SAVINGS FOR UNINSURED PATIENTS -- BIN:310800, PCN: ASPROD1, Group: AME08 , ID# [id number], Process claim through MedImpact, for questions: . THIS IS NOT INSURANCE.] Kenalog 40 mg/mL suspension for injection RxNorm: 0924100 Milliliter(s) Inj 08/03/2014 08/03/2014 Inactive [SAVINGS FOR UNINSURED PATIENTS -- BIN:744486, PCN: ASPROD1, Group: AME08, ID# [id number], Process claim through MedImpact, for questions: . THIS IS NOT INSURANCE.] azithromycin 500 mg tablet RxNorm: 300915 1 Tablet(s) PO UD 08/02/2014 Inactive dispense a zpack azithromycin 500 mg tablet RxNorm: 723149 1 Tablet(s) PO daily 08/03/2014 08/07/2014 Inactive 1 tab daily Cymbalta 60 mg capsule,delayed release RxNorm: 265427 1 Capsule(s) PO daily 07/23/2014 05/31/2015 Inactive [SAVINGS FOR UNINSURED PATIENTS -- BIN:231789, PCN: ASPROD1, Group: AME08, ID# [id number], Process claim through MedImpact, for questions: . THIS IS NOT INSURANCE.] Kenalog 40 mg/mL suspension for injection RxNorm: 9301723 1 1/2 Milliliter(s) Inj 04/27/2014 04/27/2014 Inactive [SAVINGS FOR UNINSURED PATIENTS -- BIN:579837, PCN: ASPROD1, Group: AME08, ID# [id number], Process claim through MedImpact, for questions: . THIS IS NOT INSURANCE.] meclizine 25 mg tablet RxNorm: 937666 1 Tablet(s) PO Q6 PRN 05/26/2014 Inactive [SAVINGS FOR UNINSURED PATIENTS -- BIN:209558, PCN: ASPROD1, Group: AME08 , ID# [id number], Process claim through MedImpact, for questions: . THIS IS NOT INSURANCE.] Levaquin 500 mg tablet RxNorm: 804958 1 Tablet(s) PO daily 05/03/2014 Inactive [SAVINGS FOR UNINSURED PATIENTS -- BIN:957896, PCN: ASPROD1, Group: AME08 , ID# [id number], Process claim through MedImpact, for questions: . THIS IS NOT INSURANCE.] Cymbalta 30 mg capsule,delayed release RxNorm: 087728 1 Capsule(s) PO daily 03/25/2014 07/22/2014 Inactive Cymbalta 30 mg capsule,delayed release RxNorm: 805852 1 Capsule(s) PO daily 01/28/2014 03/24/2014 Inactive furosemide 20 mg tablet RxNorm: 493875 1 Tablet(s) PO daily TAKE 1 TABLET BY MOUTH ONCE DAILY. 12/22/2013 12/16/2014 Inactive Toprol XL 25 mg tablet,extended release RxNorm: 716110 1 Tablet(s) PO daily 12/22/2013 01/24/2015 Inactive furosemide 20 mg tablet RxNorm: 167395 Tablet(s) PO TAKE 1 TABLET BY MOUTH ONCE DAILY. 12/04/2013 12/21/2013 Inactive prednisone 10 mg tablet RxNorm: 279113 Tablet(s) PO 10/28/2013 11/16/2013 Inactive 60mg d x 4 [id number] daily x 4 [id number] daily x 4 [id number] daily x 8 days5 mg daily x 8 day2.5 mg daily x 8 days2.5 mg qod x 8 doses then stop Toprol XL 25 mg tablet,extended release RxNorm: 503150 1 Tablet(s) PO daily 08/27/2013 12/21/2013 Inactive Macrobid 100 mg capsule RxNorm: 3058855 1 Capsule(s) PO BID 01/201308/24/2013 Inactive Influenza Virus Vaccine 0.5 mL RxNorm: IM 07/23/2013 07/23/2013 Inactive levofloxacin 500 mg tablet RxNorm: 349429 1 Tablet(s) PO daily 04/29/2013 05/03/2013 Inactive amitriptyline 10 mg tablet RxNorm: 887898 1 Tablet(s) PO qhs prn 1/2 to one tablet at bedtime if needed for bladder spasms 04/29/2013 08/20/2013 Inactive Cipro 250 mg tablet RxNorm: 225629 1 Tablet(s) PO BID 201204/23/2013 Inactive Levaquin 500 mg tablet RxNorm: 254696 1 Tablet(s) PO daily 07/201303/30/2013 Inactive Levaquin 500 mg tablet RxNorm: 110840 1 Tablet(s) PO daily 07/201303/23/2013 Inactive furosemide 20 mg tablet RxNorm: 125498 Tablet(s) PO TAKE 1 TABLET BY MOUTH ONCE DAILY. 03/13/2013 12/03/2013 Inactive furosemide 20 mg tablet RxNorm: 827333 Tablet(s) PO TAKE 1 TABLET BY MOUTH ONCE DAILY. 12/09/2012 03/12/2013 Inactive azithromycin 500 mg tablet RxNorm: 560325 1 Tablet(s) PO daily 11/05/2012 11/14/2012 Inactive dizjuvenale a conner Kenalog 40 mg/mL Susp for Injection RxNorm: 3908872 2 Milliliter(s) Inj 11/05/2012 11/05/2012 Inactive Cipro 500 mg tablet RxNorm: 741169 1 Tablet(s) PO BID 201102/05/2013 Inactive furosemide 20 mg tablet RxNorm: 122985 Tablet(s) PO 09/09/2012 12/08/2012 Inactive TAKE 1 TABLET BY MOUTH ONCE DAILY. Toprol XL 25 mg tablet,extended release RxNorm: 158989 1 Tablet(s) PO daily this will replace the coreg 08/26/20122012 Inactive Cipro 500 mg tablet RxNorm: 393965 1 Tablet(s) PO BID 201108/26/2012 Inactive Miralax 17 gram Oral Powder Packet RxNorm: 937403 1 PO daily 07/16/2012 Inactive Miralax 17 gram Oral Powder Packet RxNorm: 113226 1 PO daily 08/10/2013 Inactive furosemide 20 mg tablet RxNorm: 065985 Tablet(s) PO 06/10/2012 09/08/2012 Inactive TAKE 1 TABLET BY MOUTH ONCE DAILY. naproxen 500 mg tablet RxNorm: 498407 1 Tablet(s) PO 201105/08/2012 Inactive Cipro 250 mg tablet RxNorm: 366504 1 Tablet(s) PO BID Take 2 tabs BID today then 1 tab BID for the next 5 days 04/19/2012 04/25/2012 Inactive ketorolac 10 mg Tab RxNorm: 285405 1 Tablet(s) PO TID 201104/17/2012 Inactive ketorolac 60 mg/2 mL IM RxNorm: 336231 Milliliter(s) IM 201104/04/2012 Inactive ketorolac 10 mg Tab RxNorm: 619766 1 Tablet(s) PO TID 201104/10/2012 Inactive ciprofloxacin 500 mg Tab RxNorm: 076825 1 Tablet(s) PO BID 04/13/2012 Inactive ciprofloxacin 500 mg Tab RxNorm: 739401 1 Tablet(s) PO BID 04/03/2012 Inactive Coreg 3.125 mg Tab RxNorm: 164000 1 Tablet(s) PO BID 201108/25/2012 Inactive furosemide 20 mg tablet RxNorm: 160423 1 Tablet(s) PO daily 09/09/2011 Inactive Toprol XL 25 mg tablet,extended release RxNorm: 589643 1 Tablet(s) PO daily No Start Date 08/25/2012 Inactive Caltrate 600 + D oral RxNorm: 149027 oral No Start Date 11/02/2015 Inactive hydroxychloroquine 200 mg tablet RxNorm: 128259 1 Tablet(s) PO BID from dr duncan No Start Date 01/27/2014 Inactive Cipro 500 mg tablet RxNorm: 936040 1/2 Tablet(s) PO daily No Start Date 08/18/2013 Inactive Centrum Silver Ultra Women's Tab RxNorm: 1 Tablet(s) PO daily No Start Date 02/01/2016 Inactive Influenza Virus Vaccine 0.5 mL RxNorm: IM No Start Date 02/02/2016 Inactive hydrocodone 5 mg-acetaminophen 325 mg tablet RxNorm: 821072 1-2 Tablet(s) PO Q4- 6H as needed No Start Date 11/02/2015 Inactive prednisone 10 mg tablet RxNorm: 199122 Tablet(s) PO 60mg daily x 3 days, 40mg daily x 3 days, 20mg daily x 3 days, 10mg daily x 3 days, 5mg daily x 3 days, 5mg QOD x 1 week No Start Date 10/27/2013 Inactive Medication Administered Medication Codes Instructions Start Date Status Kenalog 40 mg/mL suspension for injection RxNorm: 4587405 1.5Milliliter 08/15/2017 No longer Active Kenalog 40 mg/mL suspension for injection RxNorm: 8470471 Milliliter 06/21/2016 No longer Active Kenalog 40 mg/mL suspension for injection RxNorm: 2077655 2MilliliterUD 09/17/2014 No longer Active Kenalog 40 mg/mL suspension for injection RxNorm: 9290177 Milliliter 08/03/2014 No longer Active Kenalog 40 mg/mL suspension for injection RxNorm: 1780113 1 /2Milliliter 04/27/2014 No longer Active Influenza Virus Vaccine 0.5 mL RxNorm: 07/23/2013 No longer Active Kenalog 40 mg/mL Susp for Injection RxNorm: 2489112 2Milliliter 11/05/2012 No longer Active ketorolac 60 mg/2 mL IM RxNorm: 181854 Milliliter 04/04/2012 No longer Active Immunizations Vaccine [...] 07/01/2012 completed Assessments Condition Codes Effective Dates Personal history of urinary (tract) infections ICD-10: [...] Visit Reason For Visit Effective Dates Notes dysuria 11/25/2018 abdominal pain 10/14/2018 Annual Medicare [...] hTSH II 2.26 uIU/mL 07/10/2017 Comp Metabolic Tnc260 NA 140 mEq/L 07/10/2017 Comp Metabolic Nac908 K 4.2 mEq/L 07/10/2017 Comp Metabolic Ckh254 CL 106 mEq/L 07/10/2017 Comp Metabolic Kcu153 CO2 26.0 mEq/L 07/10/2017 Comp Metabolic Qoo007 ANION GAP 12 07/10/2017 Comp Metabolic Kus066 GLUCOSE 89 mg/dL 07/10/2017 Comp Metabolic Lcj823 Creat 0.6 mg/dL 07/10/2017 Comp Metabolic Vmn566 eGFR 105 ml/min/1.73m2 07/10/2017 Comp Metabolic Oju499 BUN 9 mg/dL 07/10/2017 Comp Metabolic Inx008 B/C Ratio 15.0 Ratio 07/10/2017 Comp Metabolic Lls767 CALCIUM 9.4 mg/dL 07/10/2017 Comp Metabolic Irv956 ALK PHOS 90 U/L 07/10/2017 Comp Metabolic Xta101 AST(SGOT) 15 U/L 07/10/2017 Comp Metabolic Tkk244 ALT(SGPT) 14 U/L 07/10/2017 Comp Metabolic Lun611 BILI T 0.5 mg/dL 07/10/2017 Comp Metabolic Jvq090 ALBUMIN 4.0 g/dL 07/10/2017 Comp Metabolic Joz915 TPRO 6.2 g/dL 07/10/2017 Comp Metabolic Pfd222 GLOB 2.2 g/dL 07/10/2017 Comp Metabolic Uvz594 A/G Ratio 1.8 Ratio 07/10/2017 Comp Metabolic Zzf878 Osmo 278 mOsmo 07/10/2017 Cbc With Differential [...] 32.3 pg 07/10/2017 Cbc With Differential Ord2 [place]% 6.2 % 07/10/2017 Cbc With Differential Ord2 [...] 2.19 K/ul 07/10/2017 Cbc With Differential Ord2 [place] ABS# 0.5 K/ul 07/10/2017 Cbc With Differential Ord2 Eos ABS# 0.1 K/ul 07/10/2017 Cbc With Differential Ord2 Baso ABS# 0.0 K/ul 07/10/2017 Culture Urine [id number] URINE CULTURE SEE NOTES 02/05/2017 Urine Culture Ucult Complete >100,000 col/ml aerobic growth sent to ref lab 02/03/2017 Culture Urine [id number] URINE CULTURE SEE NOTES 12/18/2016 Culture Urine [id number] Continued Results 12/18/2016 Urine Culture Ucult Complete [...] 30.6 % 02/03/2016 Cbc With Differential Ord2 [place]% 6.6 % 02/03/2016 Cbc With Differential Ord2 [...] 2.38 K/ul 02/03/2016 Cbc With Differential Ord2 [place] ABS# 0.5 K/ul 02/03/2016 Cbc With Differential Ord2 Eos ABS# 0.2 K/ul 02/03/2016 Cbc With Differential Ord2 Baso ABS# 0.0 K/ul 02/03/2016 Cbc With Differential Ord2 New Analyzer Notice Please note new ref ranges starting 10-27-2015 due to implemntation of new five part differential hematolgy analyzer. 02/03/2016 Comp Metabolic Dff240 NA 136 mEq/L 02/03/2016 Comp Metabolic Dne025 K 4.0 mEq/L 02/03/2016 Comp Metabolic Xdx549 CL 102 mEq/L 02/03/2016 Comp Metabolic Mmq734 CO2 28.0 mEq/L 02/03/2016 Comp Metabolic Xxt031 ANION GAP 10 02/03/2016 Comp Metabolic Kaa540 GLUCOSE 85 mg/dL 02/03/2016 Comp Metabolic Iye866 Creat 0.7 mg/dL 02/03/2016 Comp Metabolic Tvm325 eGFR 88 ml/min/1.73m2 02/03/2016 Comp Metabolic Mww061 BUN 15 mg/dL 02/03/2016 Comp Metabolic Qlk845 B/C Ratio 21.4 Ratio 02/03/2016 Comp Metabolic Bwa042 CALCIUM 9.2 mg/dL 02/03/2016 Comp Metabolic Xdk753 ALK PHOS 81 U/L 02/03/2016 Comp Metabolic Fea698 AST(SGOT) 19 U/L 02/03/2016 Comp Metabolic Gbr667 ALT(SGPT) 22 U/L 02/03/2016 Comp Metabolic Rej283 BILI T 0.5 mg/dL 02/03/2016 Comp Metabolic Ter879 ALBUMIN 4.1 g/dL 02/03/2016 Comp Metabolic Nca353 TPRO 6.4 g/dL 02/03/2016 Comp Metabolic Naj950 GLOB 2.3 g/dL 02/03/2016 Comp Metabolic Uei310 A/G Ratio 1.8 Ratio 02/03/2016 Comp Metabolic Bjt641 Osmo 272 mOsmo 02/03/2016 Tsh Ord6 hTSH II 1.61 uIU/mL 02/03/2016 CRP 20080207 CRP 1.8 MG/DL 08/21/2013 GFR CALC 5127372 GFR AA >60 ML/MIN 08/21/2013 GFR CALC 3077424 GFR NON-AA >60 ML/MIN 08/21/2013 CBC 3723680 WBC 9.0 10e9/L 08/21/2013 CBC 7398751 RBC 4.68 10e12/L 08/21/2013 CBC 2395254 HGB 15.0 g/dL 08/21/2013 CBC 2267598 HCT DET 43.8 % 08/21/2013 CBC 2469488 MCV 93.6 fL 08/21/2013 CBC 4961036 MCH 32.1 pg 08/21/2013 CBC 9602666 MCHC 34.2 g/dL 08/21/2013 CBC 9127467 PLT 267 10e9/L 08/21/2013 CBC 6547316 MPV 9.0 fL 08/21/2013 CBC 1229233 MARGE % 67.8 % 08/21/2013 CBC 1709913 LY % 24.8 % 08/21/2013 CBC 9484159 MON % 6.2 % 08/21/2013 CBC 6517644 EOS % 1.0 % 08/21/2013 CBC 0546545 BASO % 0.2 % 08/21/2013 CBC 0414385 RDW 13.1 % 08/21/2013 CBC 9547697 ABS MARGE 6.10 10e9/L 08/21/2013 CBC 3748793 ABS LYMPH 2.23 10e9/L 08/21/2013 CBC 9761068 ABS MONO 0.56 10e9/L 08/21/2013 CBC 7847937 ABS EOS 0.09 10e9/L 08/21/2013 CBC 8484916 ABS BASO 0.02 10e9/L 08/21/2013 CBC 5375149 RDW-SD 43.9 fL 08/21/2013 TSH 0434873 TSH 1.898 uIU/ML 08/21/2013 MAGNESIUM 1575750 MAGNESIUM 1.7 MEQ/L 08/21/2013 CHEM 14 5052927 AST 16 U/L 08/21/2013 CHEM 14 2741606 ALT 15 IU/L 08/21/2013 CHEM 14 2980180 BUN 14 MG/DL 08/21/2013 CHEM 14 8456460 ALBUMIN 4.4 GM/DL 08/21/2013 CHEM 14 7292474 CHLORIDE 103 MMOL/L 08/21/2013 CHEM 14 7940924 BILI TOT 0.6 MG/DL 08/21/2013 CHEM 14 3184360 ALK PHOS 80 U/L 08/21/2013 CHEM 14 6063902 SODIUM 138 MMOL/L 08/21/2013 CHEM 14 1655235 CREATININE 0.76 MG/DL 08/21/2013 CHEM 14 0798931 CALCIUM 10.2 MG/DL 08/21/2013 CHEM 14 1909057 POTASSIUM 4.0 MMOL/L 08/21/2013 CHEM 14 4716921 PROT TOT 7.0 GM/DL 08/21/2013 CHEM 14 9106873 GLUCOSE 95 MG/DL 08/21/2013 CHEM 14 5159324 BICARB 29 MMOL/L 08/21/2013 CHEM 14 5068997 ANION GAP 6 MEQ/L 08/21/2013 URINALYSIS NONAUTO W/O SCOPE 93534 Specific [place] 1.020 DateTime(Free Text in Aprima) URINALYSIS NONAUTO W/O SCOPE 54193 PH 5.0 DateTime(Free Text in Aprima) URINALYSIS NONAUTO W/O SCOPE 68718 GLUCOSE Negative DateTime(Free Text in Aprima) URINALYSIS NONAUTO W/O SCOPE 32796 Protein Negative DateTime(Free Text in Aprima) URINALYSIS NONAUTO W/O SCOPE 61925 Blood Mod. Blood DateTime( Free Text in Aprima) URINALYSIS NONAUTO W/O SCOPE 53805 Bilirubin Negative DateTime(Free Text in Aprima) URINALYSIS NONAUTO W/O SCOPE 41567 Ketones Negative DateTime(Free Text in Aprima) URINALYSIS NONAUTO W/O SCOPE 33335 Urobilinogen Negative DateTime(Free Text in Aprima) URINALYSIS NONAUTO W/O SCOPE 16682 Nitrite Negative DateTime(Free Text in Aprima) URINALYSIS NONAUTO W/O SCOPE 50778 Leukocytes Negative DateTime(Free Text in Aprima) URINALYSIS NONAUTO W/O SCOPE 70452 Specific [place] 1.010 DateTime(Free Text in Aprima) URINALYSIS NONAUTO W/O SCOPE 69499 PH 6.0 DateTime(Free Text in Aprima) URINALYSIS NONAUTO W/O SCOPE 59763 GLUCOSE neg DateTime( Free Text in Aprima) URINALYSIS NONAUTO W/O SCOPE 31219 Protein neg DateTime( Free Text in Aprima) URINALYSIS NONAUTO W/O SCOPE 27567 Blood 1+ DateTime(Free Text in Aprima) URINALYSIS NONAUTO W/O SCOPE 98758 Bilirubin neg DateTime(Free Text in Aprima) URINALYSIS NONAUTO W/O SCOPE 16368 Ketones neg DateTime( Free Text in Aprima) URINALYSIS NONAUTO W/O SCOPE 34375 Urobilinogen neg DateTime(Free Text in Aprima) URINALYSIS NONAUTO W/O SCOPE 48175 Nitrite neg DateTime( Free Text in Aprima) URINALYSIS NONAUTO W/O SCOPE 82958 Leukocytes 1+ DateTime(Free Text in Aprima) UA 25461 Specific [place] 1.005 DateTime(Free Text in Aprima ) UA 25740 PH 5 DateTime(Free Text in Aprima) UA 98047 GLUCOSE neg DateTime(Free Text in Aprima) UA 16837 Protein neg DateTime(Free Text in Aprima) UA 58377 Blood 1+ DateTime(Free Text in Aprima) UA 38700 Bilirubin neg DateTime(Free Text in Aprima) UA 74195 Ketones neg DateTime(Free Text in Aprima) UA 07478 Urobilinogen neg DateTime(Free Text in Aprima) UA 89509 Nitrite neg DateTime(Free Text in Aprima) UA 84055 Leukocytes 1+ DateTime(Free Text in Aprima) UA 58942 Specific [place] 1.005 DateTime(Free Text in Aprima ) UA 91268 PH 6.0 DateTime(Free Text in Aprima) UA 76792 GLUCOSE neg DateTime(Free Text in ) UA 90387 Protein neg DateTime(Free Text in ) UA 22999 Blood 1+ DateTime(Free Text in ) UA 60256 Bilirubin neg DateTime(Free Text in ) UA 49808 Ketones neg DateTime(Free Text in ) UA 79283 Urobilinogen neg DateTime(Free Text in ) UA 38667 Nitrite neg DateTime(Free Text in ) UA 54047 Leukocytes neg DateTime(Free Text in ) Review of Systems System Result Effective Dates Constitutional No anorexia 11/25/2018 Constitutional No night [...] inner upper arm. 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 3-[address]: 580379931 CPT-4: G0436 12/12/2016 URINALYSIS NONAUTO W/O SCOPE CPT-4: 88349 12/12/2016 ADMIN INFLUENZA VIRUS VAC CPT-4: G0008 07/19/2016 FLU VACC 4 DONTE 3 YRS PLUS IM Formatting Model/CDA Sections, Assigned to/Gavino Abigail SNOMED CT: 57522497 CPT-4: 36888Tudydhm 07/19/2016 TRIAMCINOLONE ACET INJ NOS CPT-4: J3301 06/21/2016 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 3-[address]: 960345162 CPT-4: G0436 02/02/2016 ADMIN INFLUENZA VIRUS VAC CPT-4: G0008 08/25/2015 FLU VACC PRSV FREE INC ANTIG Formatting Model/CDA Sections, Assigned to/Abigail Mancia CPT-4: 37586Cduvbhw 08/25/2015 BIOPSY SKIN LESION CPT -4: 67840 02/02/2015 TRIAMCINOLONE ACET INJ NOS CPT-4: J3301 09/15/2014 DRAIN/INJECT JOINT/BURSA CPT-4: 05776 09/15/2014 TRIAMCINOLONE ACET INJ NOS CPT-4: J3301 08/03/2014 ADMIN INFLUENZA VIRUS VAC CPT-4: G0008 06/29/2014 FLU VAC NO PRSV 4 DONTE 3 YRS+ Assigned to/Gavino Abigail CPT-4: 43467Jfjmaff 06/29/2014 TRIAMCINOLONE ACET INJ NOS CPT-4: J3301 04/27/2014 ROUTINE VENIPUNCTURE CPT-4: 43225 08/21/2013 URINALYSIS NONAUTO W/O SCOPE CPT-4: 99100 08/18/2013 PRESCRIP TRANSMIT VIA ERX SY CPT-4: G8553 08/18/2013 ADMIN PNEUMOCOCCAL VACCINE SNOMED CT: [id number] CPT-4: G0009 07/31/2013 Pneumococcal Polysaccharide Vaccine, 23-Valent, Ad CPT-4: 16711 07/31/2013 ADMIN INFLUENZA VIRUS VAC CPT-4: G0008 07/23/2013 FLULAVAL VACC, 3 YRS & >, IM CPT-4: Q2036 07/23/2013 PRESCRIP TRANSMIT VIA ERX SY CPT-4: G8553 04/29/2013 URINALYSIS NONAUTO W/O SCOPE CPT-4: 16480 04/14/2013 URINALYSIS NONAUTO W/O SCOPE CPT-4: 86944 03/24/2013 REMOVAL OF SKIN TAGS <W/15 CPT-4: 49091 02/06/2013 TRIAMCINOLONE ACET INJ NOS CPT-4: J3301 11/05/2012 THER/PROPH/DIAG INJ SC/IM CPT-4: 47542 11/05/2012 PRESCRIP TRANSMIT VIA ERX SY CPT-4: G8553 11/05/2012 URINALYSIS NONAUTO W/O SCOPE CPT-4: 77585 10/31/2012 URINALYSIS NONAUTO W/O SCOPE CPT-4: 90747 09/25/2012 PRESCRIP TRANSMIT VIA ERX SY CPT-4: G8553 09/25/2012 URINALYSIS NONAUTO W/O SCOPE CPT-4: 97797 08/20/2012 PRESCRIP TRANSMIT VIA ERX SY CPT-4: G8553 08/20/2012 ADMIN INFLUENZA VIRUS VAC CPT-4: G0008 07/01/2012 FLULAVAL VACC, 3 YRS & >, IM CPT-4: Q2036 07/01/2012 URINALYSIS NONAUTO W/O SCOPE CPT-4: 41183 04/19/2012 KETOROLAC [facility] CPT-4: J1885 04/04/2012 PRESCRIP TRANSMIT VIA ERX SY CPT-4: G8553 04/04/2012 PRESCRIP TRANSMIT VIA ERX SY CPT-4: G8553 04/01/2012 Vital Signs Date Vital 11/25/2018 Blood Pressure 1: 150/72 Code : 8480-6 BMI: 24.3 Code : 32933-0 Heart Rate 1 : 65 bpm Height: 5'8" SpO2: 98% Temperature: 36.5 (C) / 97.7 (F) Weight: 160 lbs 10/14/2018 Blood Pressure 1: 140/80 Code : 8480-6 BMI: 24.7 Code : 78073-3 Heart Rate 1 : 59 bpm Height: 5'8" SpO2: 97% Weight: 162 lbs 2 oz 09/02/2018 Blood Pressure 1: 140/76 Code : 8480-6 BMI: 21.9 Code : 29558-6 Heart Rate 1 : 56 bpm Height: 5'8" SpO2: 97% Waist Measure (cm): 94 cm Weight: 144 lbs 05/21/2018 Blood Pressure 1: 136/80 Code : 8480-6 BMI: 24.6 Code : 39907-1 Heart Rate 1 : 57 bpm Height: 5'8" SpO2: 96% Weight: 162 lbs 03/04/2018 Blood Pressure 1: 160/82 Code : 8480-6 BMI: 24.3 Code : 12314-5 Heart Rate 1 : 67 bpm Height: 5'8" SpO2: 99% Temperature: 36.6 (C) / 97.9 (F) Weight: 160 lbs 01/22/2018 Blood Pressure 1: 132/84 Code : 8480-6 BMI: 24.2 Code : 47671-4 Heart Rate 1 : 64 bpm Height: 5'8" SpO2: 95% Weight: 159 lbs 10/22/2017 Blood Pressure 1: 152/78 Code : 8480-6 BMI: 24.0 Code : 65933-3 Heart Rate 1 : 68 bpm Height: 5'8" SpO2: 97% Weight: 158 lbs 08/22/2017 BMI: 24.8 Code: 04523-9 Height: 5'8" Weight: 163 lbs 08/15/2017 Blood Pressure 1: 140/74 Code : 8480-6 Heart Rate 1: 75 bpm Height: 5'8" SpO2: 96% Weight: 06/19/2017 Blood Pressure 1: 146/62 Code : 8480-6 BMI: 25.7 Code : 96267-0 Heart Rate 1 : 64 bpm Height: 5'8" SpO2: 96% Weight: 169 lbs 02/13/2017 Blood Pressure 1: 150/78 Code : 8480-6 BMI: 27.2 Code : 62683-4 Heart Rate 1 : 70 bpm Height: 5'8" SpO2: 96% Weight: 179 lbs 02/05/2017 Blood Pressure 1: 146/74 Code : 8480-6 BMI: 26.9 Code : 68108-3 Heart Rate 1 : 70 bpm Height: 5'8" SpO2: 96% Weight: 177 lbs 02/02/2017 Blood Pressure 1: 124/62 Code : 8480-6 BMI: 26.9 Code : 82459-2 Heart Rate 1 : 54 bpm Height: 5'8" SpO2: 94% Weight: 177 lbs 12/12/2016 Blood Pressure 1: 130/72 Code : 8480-6 BMI: 27.1 Code : 48848-9 Heart Rate 1 : 82 bpm Height: 5'8" SpO2: 95% Weight: 178 lbs 8 oz 06/21/2016 Blood Pressure 1: 136/74 Code : 8480-6 BMI: 25.8 Code : 16485-4 Heart Rate 1 : 86 bpm Height: 5'8" SpO2: 98% Weight: 170 lbs 05/24/2016 Blood Pressure 1: 132/80 Code : 8480-6 BMI: 25.7 Code : 45964-9 Heart Rate 1 : 67 bpm Height: 5'8" SpO2: 96% Weight: 169 lbs 02/02/2016 Blood Pressure 1: 138/80 Code : 8480-6 BMI: 25.8 Code : 34321-4 Heart Rate 1 : 67 bpm Height: 5'8" SpO2: 94% Weight: 170 lbs 11/03/2015 Blood Pressure 1: 138/82 Code : 8480-6 BMI: 26.0 Code : 38382-8 Heart Rate 1 : 80 bpm Height: 5'8" SpO2: 92% Weight: 171 lbs 02/02/2015 Blood Pressure 1: 136/88 Code : 8480-6 BMI: 26.6 Code : 48464-7 Heart Rate 1 : 67 bpm Height: 5'8" SpO2: 97% Temperature: 37.2 (C) / 98.9 (F) Weight: 175 lbs 01/25/2015 Blood Pressure 1: 150/92 Code : 8480-6 BMI: 26.6 Code : 66140-1 Heart Rate 1 : 79 bpm Height: 5'8" SpO2: 98% Weight: 175 lbs 11/26/2014 Blood Pressure 1: 148/92 Code : 8480-6 Blood Pressure 2: 142/92 Code: 8480-6 BMI: 26.5 Code: 74944-9 Heart Rate 1: 68 bpm Height: 5'8" Weight: 174 lbs 09/15/2014 Blood Pressure 1: 150/84 Code : 8480-6 BMI: 26.5 Code : 23083-9 Heart Rate 1 : 80 bpm Height: 5'8" Weight: 174 lbs 08/13/2014 Blood Pressure 1: 140/84 Code : 8480-6 Heart Rate 1: 82 bpm Height: Weight: 08/03/2014 Blood Pressure 1: 142/76 Code : 8480-6 BMI: 26.3 Code : 67410-2 Heart Rate 1 : 80 bpm Height: 5'8" Weight: 173 lbs 07/23/2014 Blood Pressure 1: 148/80 Code : 8480-6 Heart Rate 1: 76 bpm Weight: 175 lbs 06/29/2014 Blood Pressure 1: 140/82 Code : 8480-6 BMI: 26.5 Code : 72367-0 Heart Rate 1 : 60 bpm Height: 5'8" Weight: 174 lbs 04/27/2014 Blood Pressure 1: 112/70 Code : 8480-6 BMI: 26.5 Code : 48789-1 Heart Rate 1 : 72 bpm Height: 5'8" SpO2: 98% Weight: 174 lbs 01/28/2014 Blood Pressure 1: 134/80 Code : 8480-6 BMI: 26.6 Code : 99021-2 Heart Rate 1 : 72 bpm Height: 5'8" Weight: 175 lbs 01/05/2014 Blood Pressure 1: 142/86 Code : 8480-6 BMI: 27.2 Code : 16125-3 Heart Rate 1 : 78 bpm Height: 5'8" Weight: 179 lbs 11/17/2013 Blood Pressure 1: 118/62 Code : 8480-6 BMI: 27.1 Code : 89582-0 Heart Rate 1 : 76 bpm Height: 5'8" Weight: 178 lbs 08/27/2013 Blood Pressure 1: 126/80 Code : 8480-6 BMI: 26.6 Code : 03753-2 Heart Rate 1 : 72 bpm Height: [...] Code : 8480-6 BMI: 26.5 Code : 00843-0 Heart Rate 1 : 72 bpm Height: 5'8" Weight: 174 lbs 8 oz 03/24/2013 Blood Pressure 1: 112/78 Code : 8480-6 BMI: 26.2 Code : 63375-5 Heart Rate 1 : 72 bpm Height: [...] Name Status Result Effective Date Notes Quality acute 2018 None Onset and Resolution [...] data Encounters Encounter Performer Location Codes Date ([id number]) 80552 EST. PATIENT, LEVEL IV Diagnosis: Essential (primary) hypertension[ICD10: I10] Diagnosis: Dysuria[ICD10: R30.0] Diagnosis: Personal history of urinary (tract) infections[ICD10: Z87.440] Tessa George MD, [facility] CPT-4: 52702 11/25/2018 ([id number]) 98813 EST. PATIENT, LEVEL III Diagnosis: Diverticulitis of large intestine without perforation or abscess without bleeding[ICD10: K57.32] Tessa George MD, [facility] CPT-4: 33014 10/14/2018 [id number]) 74393 EST. PATIENT, LEVEL IV Diagnosis: Essential (primary) hypertension[ICD10: I10] Diagnosis: Tobacco use[ICD10: Z72.0] Diagnosis: Functional diarrhea[ICD10: K59.1] Tessa George MD, [facility] CPT-4: 87420 05/21/2018 ([id number]) 62893 EST. PATIENT, LEVEL III Diagnosis: Insect bite (nonvenomous) of abdominal wall, initial encounter[ICD10 : S30.861A] Tessa George MD, [facility] CPT-4: 11229 ([id number]) 87214 EST. PATIENT, LEVEL IV Diagnosis: Essential (primary) hypertension[ICD10: I10] Diagnosis: Tobacco use[ICD10: Z72.0] Diagnosis: Functional diarrhea[ICD10: K59.1] Tessa George MD, [facility] CPT-4: 00779 01/22/2018 ([id number]) 86892 EST. PATIENT, LEVEL III Diagnosis: Essential (primary) hypertension[ICD10: I10] Diagnosis: Functional diarrhea[ICD10: K59.1] Tessa George MD, [facility] CPT-4: 10900 10/22/2017 79003 EST. PATIENT, LEVEL III Diagnosis: Rash and other nonspecific skin eruption[ICD10: R21] Brooke George MD, [facility] CPT-4: 65599 08/15/2017 ([id number]) 13544 EST. PATIENT, LEVEL IV Diagnosis: Essential (primary) hypertension[ICD10: I10] Diagnosis: Functional diarrhea[ICD10: K59.1] Diagnosis: Epigastric pain[ICD10: R10.13] Tessa George MD, [facility] CPT- 4: 95970 06/19/2017 ([id number]) 95533 EST. PATIENT, LEVEL IV Diagnosis: Essential (primary) hypertension[ICD10: I10] Diagnosis: Epigastric pain[ICD10: R10.13] Tessa George MD, [facility] CPT- 4: 74854 02/13/2017 37469 EST. PATIENT, LEVEL IV Diagnosis: Low back pain[ICD10: M54.5] Brooke George MD, [facility] CPT-4 : 43920 02/05/2017 12397 EST. PATIENT, LEVEL IV Diagnosis: Dysuria[ICD10: R30.0] Diagnosis: Low back pain[ICD10: M54.5] Brooke George MD, [facility] CPT-4 : 75711 02/02/2017 ([id number]) 45592 EST. PATIENT, LEVEL IV Diagnosis: Essential (primary) hypertension[ICD10: I10] Diagnosis: Dysuria[ICD10: R30.0] Diagnosis: Tobacco use[ICD10: Z72.0] Tessa George MD, [facility] CPT-4: 19850 12/12/2016 27469 EST. PATIENT, LEVEL IV Diagnosis: Other acute sinusitis[ICD10: J01.80] Diagnosis: Other allergic rhinitis[ICD10: J30.89] Brooke George MD, [facility] CPT-4: 79225 06/21/2016 ([id number]) 40589 EST. PATIENT, LEVEL III Diagnosis: Essential (primary) hypertension[ICD10: I10] Diagnosis: Major depressive disorder, single episode, unspecified[ICD10: F32.9] Tessa George MD, [facility] CPT-4: 59268 05/24/2016 ([id number]) 08824 EST. PATIENT, LEVEL IV Diagnosis: Essential (primary) hypertension[ICD10: I10] Diagnosis: Major depressive disorder, single episode, unspecified[ICD10: F32.9] Diagnosis: Tobacco use[ICD10: Z72.0] Tessa George MD, [facility] CPT-4: 88853 02/02/2016 ([id number]) 00239 EST. PATIENT, LEVEL IV Diagnosis: Essential (primary) hypertension[ICD10: I10] Diagnosis: Polymyalgia rheumatica[ICD10: M35.3] Diagnosis: Major depressive disorder, single episode, unspecified[ICD10: F32.9] Tessa George MD, [facility] CPT-4: 64631 11/03/2015 ([id number]) Miscellaneous no charge Diagnosis: Hyperpigmented skin lesion[ICD9: 709.00] Tessa George MD, [facility] CPT-4: 27285 02/12/2015 ([id number]) 07066 EST. PATIENT, LEVEL IV Diagnosis: ESSENTIAL HYPERTENSION[ICD9: 401.9] Diagnosis: DEPRESSIVE DISORDER NEC[ICD9: 311] Diagnosis: POLYMYALGIA RHEUMATICA[ICD9: 725] Tessa George MD, [facility] CPT-4: 12637 01/25/2015 ([id number]) 62246 EST. PATIENT, LEVEL IV Diagnosis: ESSENTIAL HYPERTENSION[ICD9: 401.9] Diagnosis: Polymyalgia rheumatica syndrome[ICD9: 725] Diagnosis: Smoking[ICD9: 305.1] Tessa George MD, [facility] CPT-4: 98494 11/26/2014 ([id number]) 43150 EST. PATIENT, LEVEL III Diagnosis: ESSENTIAL HYPERTENSION[ICD9: 401.9] Diagnosis: Sacroiliitis[ICD9: 720.2] Tessa George MD, [facility] CPT-4: 02647 09/15/2014 ([id number]) 37397 EST. PATIENT, LEVEL III Diagnosis: Hip pain[ICD9: 719.45] Diagnosis: Sacroiliac pain[ICD9: 724.6] Tessa George MD, [facility] CPT- 4: 28966 08/13/2014 ([id number]) 97570 EST. PATIENT, LEVEL III Diagnosis: ACUTE SINUSITIS[ICD9: 461.9] Diagnosis: ALLERGIC RHINITIS[ICD9: 477.9] Aviva George MD, [facility] CPT-4: 81262 08/03/2014 ([id number]) 19003 EST. PATIENT, LEVEL IV Diagnosis: ESSENTIAL HYPERTENSION[ICD9: 401.9] Diagnosis: DEPRESSIVE DISORDER NEC[ICD9: 311] Diagnosis: POLYMYALGIA RHEUMATICA[ICD9: 725] Tessa George MD, [facility] CPT-4: 04637 07/23/2014 ([id number]) 02727 EST. PATIENT, LEVEL IV Diagnosis: ESSENTIAL HYPERTENSION[ICD9: 401.9] Diagnosis: DEPRESSIVE DISORDER NEC[ICD9: 311] Diagnosis: POLYMYALGIA RHEUMATICA[ICD9: 725] Diagnosis: VACCIN FOR INFLUENZA[ICD10: Z23] Tessa George MD, [facility] CPT-4: 70520 06/29/2014 ([id number]) 78339 EST. PATIENT, LEVEL III Diagnosis: ACUTE MAXILLARY SINUSITIS[ICD9: 461.0] Diagnosis: BPPV (benign paroxysmal positional vertigo)[ICD9: 386.11] Aviva George MD , [facility] CPT-4: 04637 04/27/2014 ([id number]) 01011 EST. PATIENT, LEVEL III Diagnosis: ESSENTIAL HYPERTENSION[SNOMED: 27049514] Diagnosis: Fatigue[ICD9: 780.79] Diagnosis: DEPRESSIVE DISORDER NEC[ICD9: 311] Tessa George MD, [facility] CPT-4: 00888 01/28/2014 ([id number]) 71285 EST. PATIENT, LEVEL III Diagnosis: ESSENTIAL HYPERTENSION[SNOMED: 23245137] Diagnosis: Blurry vision, bilateral[ICD9: 368.8] [facility] CPT-4: 37710 01/05/2014 ([id number]) 34593 EST. PATIENT, LEVEL IV Diagnosis: POLYMYALGIA RHEUMATICA[ICD9: 725] Diagnosis: PAIN IN LIMB[ICD9: 729.5] Diagnosis: ESSENTIAL HYPERTENSION[SNOMED: 22639450] Tsesa George MD, [facility] CPT-4: 76309 11/17/2013 ([id number]) 26719 EST. PATIENT, LEVEL III Diagnosis: Polymyalgia rheumatica syndrome[ICD9: 725] Tessa George MD, [facility] CPT-4: 36037 08/27/2013 ([id number]) 39578 EST. PATIENT, LEVEL III Diagnosis: ESSENTIAL HYPERTENSION[SNOMED: 96731086] Diagnosis: Fatigue[ICD9: 780.79] Tessa George MD [facility] CPT-4: 32751 08/21/2013 ([id number]) 87878 EST. PATIENT, LEVEL III Diagnosis: Urinary tract infection[ICD9: 599.0] Diagnosis: ESSENTIAL HYPERTENSION[SNOMED: 71519545] Aviva George MD, [facility] CPT-4: 72124 08/18/2013 ([id number]) 86824 EST. PATIENT, LEVEL IV Diagnosis: ESSENTIAL HYPERTENSION[SNOMED: 75329421] Diagnosis: HEMATURIA NOS[ICD9: 599.70] Diagnosis: CHRONIC INTERSTITIAL CYSTITIS[ICD9: 595.1] Tessa George MD, [facility] CPT-4: 46928 04/29/2013 ([id number]) 23729 EST. PATIENT, LEVEL III Diagnosis: Recurrent urinary tract infection[ICD9: 599.0] Diagnosis: DYSURIA[ICD9: 788.1] Tessa eGorge MD, [facility] CPT-4: 75625 03/24/2013 ([id number]) 13964 EST. PATIENT, LEVEL IV Diagnosis: ESSENTIAL HYPERTENSION[SNOMED: 25642700] Diagnosis: HYPERLIPIDEMIA[ICD9: 272.4] Diagnosis: Irritated nevus of neck[ICD9: 216.4] Tessa George MD, [facility] CPT-4: 98317 02/06/2013 ([id number]) 39674 EST. PATIENT, LEVEL III Diagnosis: ACUTE MAXILLARY SINUSITIS[ICD9: 461.0] Diagnosis: ACUTE URI[ICD9: 465.9] Diagnosis: COUGH[ICD9: 786.2] Tessa George MD [facility] CPT-4: 51081 11/05/2012 ([id number]) 37464 EST. PATIENT, LEVEL III Diagnosis: ESSENTIAL HYPERTENSION[SNOMED: 51952952] Diagnosis: ILL-DEFINE CONDITION NEC[ICD9: 799.89] Tessa George MD [facility] CPT-4: 07906 10/31/2012 ([id number]) 87882 EST. PATIENT, LEVEL III Diagnosis: ESSENTIAL HYPERTENSION[SNOMED: 86139084] Tessa George MD [facility] CPT-4: 57090 09/03/2012 ([id number]) 03319 EST. PATIENT, LEVEL III Diagnosis: UTI[ICD9: 599.0] Diagnosis: Microscopic hematuria[ICD9: 599.72] Diagnosis: ESSENTIAL HYPERTENSION[SNOMED: 01041323] Tessa George MD [facility] CPT-4: 47438 08/20/2012 ([id number]) 73331 EST. PATIENT, LEVEL IV Diagnosis: Constipation - functional[ICD9: 564.09] Diagnosis: Abdominal pain[ICD9: 789.00] Tessa George MD [facility] CPT- 4: 09260 07/16/2012 ([id number]) 58514 EST. PATIENT, LEVEL IV Diagnosis: ESSENTIAL HYPERTENSION[SNOMED: 37756152] Diagnosis: Fatigue[ICD9: 780.79] Diagnosis: Constipation - functional[ICD9: 564.09] Tessa George MD [facility] CPT-4: 62976 07/01/2012 ([id number]) 23681 EST. PATIENT, LEVEL III Diagnosis: ESSENTIAL HYPERTENSION[SNOMED: 85614462] Diagnosis: HEADACHE[ICD9: 784.0] Tessa George MD [facility] CPT-4: 77822 05/08/2012 52717 EST. PATIENT, LEVEL IV Diagnosis: Urinary tract infection[ICD9: 599.0] Diagnosis: ESSENTIAL HYPERTENSION[SNOMED: 80447716] Diagnosis: Fatigue[ICD9: 780.79] Tessa George MD [facility] CPT-4: 10873 04/19/2012 ([id number]) 93625 EST. PATIENT, LEVEL IV Diagnosis: ESSENTIAL HYPERTENSION[SNOMED: 59809793] Diagnosis: Mouth dryness[ICD9: 527.7] Diagnosis: HEADACHE[ICD9: 784.0] Diagnosis: CERVICALGIA[ICD9: 723.1] Tessa George MD [facility] CPT-4: 97200 04/15/2012 ([id number]) 46865 EST. PATIENT, LEVEL IV Diagnosis: Urinary tract infection[ICD9: 599.0] Diagnosis: Generally unwell[ICD9: 799.89] Diagnosis: ESSENTIAL HYPERTENSION[SNOMED: 56181986] Diagnosis: MYALGIA AND MYOSITIS[ICD9: 729.1] Tessa George MD [facility] CPT-4: 73688 04/04/2012 ([id number]) 81309 EST. PATIENT, LEVEL IV Diagnosis: ESSENTIAL HYPERTENSION[SNOMED: 81110032] Diagnosis: Unsteady gait[ICD9: 781.2] Diagnosis: Neck pain[ICD9: 723.1] Tessa George MD, [facility] CPT-4: 42107 04/01/2012 ([id number]) Patient admitted to the hospital from clinic (NO CHARGE) Diagnosis: Pericardial rub[ICD9: 785.3] Diagnosis: ESSENTIAL HYPERTENSION[SNOMED: 97484821] Diagnosis: HEADACHE[ICD9: 784.0] Diagnosis: Arm pain[ICD9: 729.5] Aviva George MD, [facility] CPT-4: 95156U 03/20/2012 Plan of Care Planned Activity Notes Codes Status Date Visit Plan: Hypertension - well controlled - [...] not improve. 11/25/2018 Appointment: Tessa George WPtel: [address] [place], [place] [address] [place] (15 min) Moderate 11/25/2018 Patient Education: Patient [...] better by sunday10/14/2018 Appointment: Tessa George WPtel[facility] (15 min) Moderate 10/14/2018 Patient Education: Patient Medication Summary Completed 10/14/2018 Appointment: Tessa George WPtel: [facility] (15 min) Moderate 09/24/2018 Visit Plan: Medicare [...] care surrogate. 09/02/2018 Appointment: Brooke Dominguez WPtel[facility] [facility] - Annual Wellness Visit 09/02/2018 Patient Education: [...] monitor symptoms. 05/21/2018 Appointment: Tessa George WPtel: [address] [facility] (15 min) Moderate 05/21/2018 Patient Education: Patient Medication Summary Completed 05/21/2018 Visit Plan: tick bite - rx for doxycycline - and use benadryl cream on the tick bites to help decrease itching 03/04/2018 Appointment: Tessa George WPtel: [facility] (15 min) Moderate 03/04/2018 Patient Education: [...] cessation strategies. 01/22/2018 Appointment: Tessa George WPtel: [facility] (15 min) Moderate 01/22/2018 Patient Education: [...] not resolved. 10/22/2017 Appointment: Tessa George WPtel: [facility] [place] (15 min) Moderate 10/22/2017 Patient Education: Patient [...] taper. 08/15/2017 Appointment: [facility] [facility] (30 min) Complex 08/15/2017 Patient Education: [...] at home. 06/19/2017 Appointment: [facility]el[facility] (15 min) Moderate 06/19/2017 Patient Education: Patient [...] abdomen 02/13/2017 Appointment: Tessa George WPtel: [address] [facility] (15 min) Moderate 02/13/2017 Patient Education: [...] improve. 02/05/2017 Appointment: [facility]uez [facility] [address] [facility] [place] (15 min) Moderate 02/05/2017 Patient [...] not improve. 02/02/2017 Appointment: Brooke Dominguez WPtel: [address] [facility] [place] (15 min) Moderate 02/02/2017 Patient [...] of stopping. 12/12/2016 Appointment: Tessa George WPtel: [address] [facility] (15 min) Moderate 12/12/2016 Patient [...] allergy spray. 06/21/2016 Appointment: Aviva Patton WPtel: [address] [phone] (15 min) Moderate 06/21/2016 Patient Education: Patient [...] weeks. 02/02/2015 Appointment: T[facility] George [facility]Ptel[phone] [facility] [facility] Procedure 02/02/2015 Patient Education: Patient Medication [...] another smoker. 11/26/2014 Appointment: Tessa George WPtel: [facility] Follow up 11/26/2014 Patient Education: Patient Medication [...] at home. 09/15/2014 Appointment: T[facility] George [facility]Ptel[phone] [facility] Follow up 09/15/2014 Patient Education: Patient Medication Summary Completed 09/15/2014 Visit Plan: Hip pain - stat xray right hip - antiinflammatories. Pt to use heat to hip, monitor symptoms - and pt to call if not improving, pt to be called with hip xray report. 08/13/2014 Appointment: Tessa George WPtel: [address] [facility] Sick 08/13/2014 Patient Education: Patient [...] daily. 07/23/2014 Appointment: T[facility] George WPtel[phone] [facility] Follow up 07/23/2014 Patient Education: Patient Medication [...] home. flu shot today 06/29/2014 Appointment: Tessa Georgel: [address] [facility] Follow up 06/29/2014 Patient Education: Patient Medication [...] on cymbalta. 01/28/2014 Appointment: T[facility] George WPtel: [phone] [facility] Follow up 01/28/2014 Patient Education: Patient Medication [...] Dr. Benites. 01/05/2014 Appointment: Tessa George WPtel: [address] [place], [place] [phone] Follow up 01/05/2014 Patient Education: Patient Medication Summary Completed 01/05/2014 Patient Education: Hypertension Completed 01/05/2014 Appointment: Tessa George WPtel: [address] [place], [place] [phone] Follow up 11/27/2013 Visit Plan: Hypertension - [...] for pain 11/17/2013 Appointment: Tessa George WPtel: [facility]5 [facility] Other 11/17/2013 Patient Education: Patient Medication Summary Completed 11/17/2013 Patient Education: Hypertension Completed 11/17/2013 Appointment: Tessa George WPtel: [address] [place], [place] [phone] [place] Lab Draw 10/29/2013 Visit Plan: Polymyalgia [...] side effects. 08/27/2013 Appointment: Tessa George WPtel: [address] [place], [place] [phone] Follow up 08/27/2013 Patient Education: Patient Medication [...] improve. 08/18/2013 Appointment: Aviva Patton WPtel: [phone] [phone] [place] Other 08/18/2013 Patient Education: Patient Medication Summary Completed 08/18/2013 Patient Education: Hypertension Completed 08/18/2013 Appointment: Aviva Patton [facility]Ptel[facility] [address] [phone] [place] Injection 07/31/2013 Patient Education: Patient Medication Summary Completed 07/31/2013 Appointment: Aviva Patton [facility]Ptel[facility] [address] [phone] [place] Injection 07/23/2013 Patient Education: Patient [...] dysuria. 04/29/2013 Appointment: T[facility] George WPtel: [facility] [facility] [place] Follow up 04/29/2013 Patient Education: Patient Medication Summary Completed 04/29/2013 Patient Education: Hypertension Completed 04/29/2013 Appointment: Tessa George WPtel: [phone] [facility] [place] Lab Draw 04/14/2013 Patient Education: Patient Medication Summary Completed 04/14/2013 Visit Plan: DYSURIA - WITH RECURRENT UTI - WILLGIVE ANTIBIOTIC AND REFER PT TO SEE DR. CHOW ABOUT RECTOCELE AND CYSTOCELE. 03/24/2013 Appointment: Tessa George WPtel: [facility]5 [facility] Other 03/24/2013 Patient Education: Patient [...] silver nitrate. 02/06/2013 Appointment: Tessa George WPtel: [facility] [place] [phone] Follow up 02/06/2013 Patient Education: Patient Medication Summary Completed 02/06/2013 Patient Education: Hypertension Completed 02/06/2013 Visit Plan: Sinusitis - Pt has acute infection - pain in face, maxillary region, Pt informed to use decongestant, RX given to patient, sinus rinses also recommended. Call if symptoms do not show improvement. 11/05/2012 Appointment: Tessa George WPtel: [phone] [facility] Other 11/05/2012 Patient Education: Patient Medication [...] clinic. 10/31/2012 Appointment: Tessa George WPtel: [phone] [facility] Follow up 10/31/2012 Patient Education: [...] Ordoñez 09/25/2012 Appointment: Tessa George WPtel: [address] [facility] Follow up 09/25/2012 Patient Education: [...] 09/03/2012 Appointment: Tessa George WPtel: [address] [facility] Follow up 09/03/2012 Patient Education: [...] review. 08/20/2012 Appointment: Aviva Patton WPtel: [phone] [phone] Follow up 08/20/2012 Patient Education: Patient [...] miralax 07/16/2012 Appointment: Aviva Patton WPtel: [address] [phone] [facility] 07/16/2012 Patient Education: Patient Medication Summary Completed [...] benefiber 07/01/2012 Appointment: Tessa George WPtel: [phone] [facility] Follow up 07/01/2012 Patient Education: Patient Medication [...] in stopping. 05/08/2012 Appointment: Tessa George WPtel: [facility] [facility] 05/08/2012 Patient Education: [...] acute concerns. 04/19/2012 Appointment: Aviva Patton WPtel: [phone] Other 04/19/2012 Patient Education: Patient Medication [...] the coreg. 04/15/2012 Appointment: Tessa George WPtel: [facility]9 [facility] Follow up 04/15/2012 Patient Education: Patient Medication Summary Completed 04/15/2012 Patient Education: High Blood Pressure: Essential Hypertension Completed 2011 Appointment: Tessa George WPtel: [facility] [place] Lab Draw 04/08/2012 Visit Plan: UTI [...] the medication. 04/04/2012 Appointment: Tessa George WPtel: [facility] [address] Other 04/04/2012 Patient Education: Patient Medication Summary [...] 3.125mg bid 04/01/2012 Appointment: Tessa George [facility]Ptel: [facility] [id number] Other 04/01/2012 Patient Education: Patient Medication Summary Completed 04/01/2012 Patient Education: High Blood Pressure: Essential Hypertension Completed 2011 Visit Plan: Pericardial eet-PYR-Iftyumvu-arm pain-history of shingles-Dr. George in to evaluate [...] AND EVALUATION OF THE ACUTE ILLNESS. Pericardial mdk-RPL-Rcxcjtje-arm pain-history of shingles- Dr. George in to evaluate patient-plan to admit for further work up and close monitoring. Plan to get labs STAT including a cardiac panel. A stat echo has also been ordered as well with cardiology consult. 03/20/2012 Appointment: Aviva Patton WPtel: [address] [place] [address] [place] Other 03/20/2012 Patient Education: Patient Medication Summary Completed 03/20/2012 Patient Education: High Blood Pressure: Essential Hypertension Completed 2011 Appointment: Aviva Patton WPtel: [address] [place], [place] [id number] [place] Other 08/30/2011 Instructions Comment . Hypertension [...] paperwork for health care surrogate. . Pericardial mgv-TFR-Ehbaitnm-arm pain-history of shingles -Dr. George in to [...] AND EVALUATION OF THE ACUTE ILLNESS. Pericardial nck-IXP-Spwerupm-arm pain-history of shingles-Dr. George in to evaluate [...]
--- NOTE | 2019-01-26 14:44 | Diagnostic Imaging Report ---
CLINICAL INDICATION: Patient status post fall and hit top of the right portion of the head on concrete. EXAM: Head CT without IV contrast. Axial CT scan of the cervical spine with sagittal and coronal reformations. COMPARISON: CT scan of the head without IV contrast dated 12/13/2018. MRI of the cervical spine without contrast dated 04/03/2012. CT scan of the chest with contrast dated 11/20/2016. FINDINGS: Head CT: Skull streak artifact obscures portions of brainstem, posterior fossa, portions of the brain near the skull base. There is no evidence of acute cerebral infarct, intracranial hemorrhage, or gross mass effect. The brain parenchymal volume appears appropriate for patient's age. There is normal lew-white matter distinction. There is no significant midline shift or herniation. There is no evidence of hydrocephalus. The basal cisterns are unremarkable. The skull, extracranial soft tissue, and orbits are unremarkable. The paranasal sinuses are unremarkable. Temporal bones show no significant abnormality. Cervical spine: There is no acute cervical spine fracture. There is grade 1 anterolisthesis of C2 on C3, C3 on C4 and T1 on T2 with no pars defect seen, likely degenerative. There is multilevel cervical spine vertebral body spurs and facet arthropathy. There is a small central canal narrowing at the C5-C6 level. There is severe right C5-C6 neural foramen narrowing due to uncinate spurs. There is moderate left C5-C6 and C6-C7 neural foramen narrowing and left C3-C4 neural foramen narrowing. There is no significant neck soft tissue abnormality. Subclavian artery is seen which demonstrates aneurysmal enlargement which appears stable compared to the prior study measured at roughly 1.8 cm. Upper lung melendez show mild paraseptal emphysematous changes. IMPRESSION: 1: There is no evidence of acute intracranial process. There is no skull fracture or intracranial hemorrhage. 2: Multilevel cervical spine degenerative disease with no acute cervical spine fracture. Dictated by: Dictated on workstation # [id number]
--- NOTE | 2019-01-26 14:46 | Diagnostic Imaging Report ---
CLINICAL INDICATION: Patient status post fall and patient hit top of head on concrete. Patient has right hip pain. EXAM: Portable chest x-ray upright view. COMPARISONS: Chest x-ray dated 12/13/2018. FINDINGS: Lungs/pleura: Lungs are clear. There is no pneumothorax. There is no pleural effusion. Mediastinum: Unremarkable. Pulmonary vasculature: Unremarkable. Heart: Unremarkable. Bones/extrathoracic soft tissue: There are hypertrophic spurs involving the thoracic spine. Surgical clips are seen overlying the right upper quadrant which could be related to cholecystectomy changes. There are surgical clips overlying the left axillary region again seen. IMPRESSION: Stable chest x-ray exam with no interval radiographic evidence of acute cardiopulmonary process. Dictated by: Dictated on workstation # [id number]
--- OUTSIDE RECORDS SUMMARY | 2019-01-26 14:48 | XMS REPORT | CCD ---
Author Author Aviva Patton Organization [facility] Address [address] [place] [address] Phone Care Team Providers Care Slab Off Mill Tender Name Role Phone [facility] Unavailable CCM Unavailable Summary Purpose Interface Exchange Insurance Providers Payer name Policy type / Coverage type Covered green party ID Effective Begin Date Effective End Date WPS Medicare Part B Medicare Part B [id number] Unknown FOR LIFE WPS Medicare Part B [id number] Unknown Family history Mother Diagnosis Age At Onset Myocardial infarction Unknown Father Diagnosis Age At Onset Cancer Unknown bladder cancer Unknown Myocardial infarction Unknown Brother Diagnosis Age At Onset Myocardial infarction Unknown Social History Social History Element Codes Description Effective Dates Marital status Unknown 02/02/[address]: 16438660 Current every day smoker 02/02/2016 Number of children Unknown 2 sons living and well 03/20/2012 Living arrangements Unknown House 03/20/2012 Employment Unknown Retired 03/20/2012 Number of years using tobacco Unknown 40 03/20/2012 Number of cigarettes/day Unknown 10 ( Half a pack) 03/20/[address]: 925174808 Never drinks alcohol 03/20/2012 Allergies, Adverse Reactions, [...] Start Date Stop Date Status Fill Instructions Levaquin 500 mg tablet RxNorm: 100066 1 Tablet(s) PO daily 08/201911/29/2018 Active furosemide 20 mg tablet RxNorm: 591614 TAKE 1 TABLET DAILY No Stop Date Active Augmentin 875 mg-125 mg tablet RxNorm: 409420 1 Tablet(s) PO BID 10/14/2018 10/23/2018 Inactive doxycycline hyclate 100 mg tablet RxNorm: 389974 1 Tablet(s) PO BID 03/04/2018 03/10/2018 Inactive Pepcid AC 20 mg tablet RxNorm: 157702 1 Tablet(s) PO BID 201704/16/2019 Active pt requested a 90 day supply please Pepcid AC 20 mg tablet RxNorm: 420412 1 Tablet(s) PO BID 201701/21/2018 Inactive Pepcid AC 20 mg tablet RxNorm: 009243 1 Tablet(s) PO BID 201701/17/2018 Inactive Pepcid AC 20 mg tablet RxNorm: 076118 1 Tablet(s) PO BID 201712/18/2017 Inactive Flagyl 500 mg tablet RxNorm: 781444 1 Tablet(s) PO TID 201712/28/2017 Inactive Cymbalta 60 mg capsule,delayed release RxNorm: 642197 1 CAPSULE(S) PO DAILY 1 CAPSULE(S) PO DAILY 12/14/2017 No Stop Date Active Toprol XL 25 mg tablet,extended release RxNorm: 700357 1 TABLET(S) PO BID 12/14/2017 No Stop Date Active furosemide 20 mg tablet RxNorm: 717967 TAKE 1 TABLET DAILY 11/06/2018 Inactive Kenalog 40 mg/mL suspension for injection RxNorm: 8270363 1.5 Milliliter(s) Inj 08/15/2017 08/15/2017 Inactive triamcinolone acetonide 0.025 % topical cream RxNorm: 0724593 1 Application TOP BID as needed 08/15/2017 08/19/2017 Inactive prednisone 20 mg tablet RxNorm: 897227 2 Tablet(s) PO daily 10/201608/19/2017 Inactive Flagyl 500 mg tablet RxNorm: 659121 1 Tablet(s) PO TID 201608/10/2017 Inactive Flagyl 500 mg tablet RxNorm: 245255 1 Tablet(s) PO TID 201607/31/2017 Inactive Questran 4 gram powder for susp in a packet RxNorm: 028545 1/2 packet PO QID 06/19/2017 01/14/2018 Inactive Levsin/SL 0.125 mg sublingual tablet RxNorm: 3856582 1 Tablet(s) SL QID as needed abdominal pain or abdominal spasms 02/13/2017 08/19/2017 Inactive cyclobenzaprine 5 mg tablet RxNorm: 174982 1 Tablet(s) PO TID as needed 02/08/2017 02/12/2017 Inactive cyclobenzaprine 5 mg tablet RxNorm: 289876 1 Tablet(s) PO TID as needed 02/05/2017 02/07/2017 Inactive Cipro 250 mg tablet RxNorm: 731941 1 Tablet(s) PO BID 201602/11/2017 Inactive Cymbalta 60 mg capsule,delayed release RxNorm: 626551 1 Capsule(s) PO daily 1 CAPSULE(S) PO DAILY 12/18/2016 12/12/2017 Inactive Toprol XL 25 mg tablet,extended release RxNorm: 632492 1 Tablet(s) PO BID 12/18/2016 12/12/2017 Inactive [SAVINGS FOR NON-COVERED DRUGS -- BIN:[id number], PCN: ASPROD1, Group: XXXXX, ID# [id number], Questions: . THIS IS NOT INSURANCE.] ciprofloxacin 500 mg tablet RxNorm: 095505 1 Tablet(s) PO BID 12/12/2016 12/17/2016 Inactive furosemide 20 mg tablet RxNorm: 904424 TAKE 1 TABLET DAILY 12/201611/11/2017 Inactive levofloxacin 500 mg tablet RxNorm: 968152 1 Tablet(s) PO daily 06/21/2016 06/25/2016 Inactive Kenalog 40 mg/mL suspension for injection RxNorm: 0092284 Milliliter(s) Inj 06/21/2016 06/21/2016 Inactive hydrocodone 5 mg-acetaminophen 325 mg tablet RxNorm: 494240 1-2 Tablet(s) PO Q4- 6H as needed 11/03/2015 02/01/2016 Inactive Cymbalta 60 mg capsule,delayed release RxNorm: 693745 1 Capsule(s) PO daily 1 CAPSULE(S) PO DAILY 11/03/2015 12/17/2016 Inactive furosemide 20 mg tablet RxNorm: 525889 Tablet(s) TAKE 1 TABLET ONCE DAILY 11/03/2015 11/16/2016 Inactive Toprol XL 25 mg tablet,extended release RxNorm: 092669 2 Tablet(s) PO daily 11/03/2015 12/17/2016 Inactive [SAVINGS FOR NON-COVERED DRUGS -- BIN:773734, PCN: ASPROD1, Group: XXXXX, ID# [id number], Questions: . THIS IS NOT INSURANCE.] Cymbalta 60 mg capsule,delayed release RxNorm: 511288 1 Capsule(s) PO daily 1 CAPSULE(S) PO DAILY 05/31/2015 11/02/2015 Inactive Toprol XL 25 mg tablet,extended release RxNorm: 929591 2 Tablet(s) PO daily 01/25/2015 11/02/2015 Inactive [SAVINGS FOR NON-COVERED DRUGS -- BIN:106406, PCN: ASPROD1, Group: XXXXX, ID# [id number], Questions: . THIS IS NOT INSURANCE.] Voltaren 1 % topical gel RxNorm: 932252 2 Gram(s) TOP QID to hands 01/25/2015 05/24/2015 Inactive [SAVINGS FOR NON-COVERED DRUGS -- BIN:286104, PCN: ASPROD1, Group : XXXXX, ID# [id number], Questions: . THIS IS NOT INSURANCE.] furosemide 20 mg tablet RxNorm: 007850 TAKE 1 TABLET ONCE DAILY 12/17/2014 11/02/2015 Inactive Kenalog 40 mg/mL suspension for injection RxNorm: 3057474 2 Milliliter(s) Inj UD 09/17/2014 09/17/2014 Inactive [SAVINGS FOR UNINSURED PATIENTS -- BIN:783402, PCN: ASPROD1, Group: AME08, ID# [id number], Process claim through MedImpact, for questions: . THIS IS NOT INSURANCE.] Levaquin 500 mg tablet RxNorm: 379054 1 Tablet(s) PO daily 08/16/2014 Inactive [SAVINGS FOR UNINSURED PATIENTS -- BIN:048141, PCN: ASPROD1, Group: AME08 , ID# [id number], Process claim through MedImpact, for questions: . THIS IS NOT INSURANCE.] Kenalog 40 mg/mL suspension for injection RxNorm: 2029474 Milliliter(s) Inj 08/03/2014 08/03/2014 Inactive [SAVINGS FOR UNINSURED PATIENTS -- BIN:421771, PCN: ASPROD1, Group: AME08, ID# [id number], Process claim through MedImpact, for questions: . THIS IS NOT INSURANCE.] azithromycin 500 mg tablet RxNorm: 909596 1 Tablet(s) PO UD 08/02/2014 Inactive dispense a zpack azithromycin 500 mg tablet RxNorm: 156926 1 Tablet(s) PO daily 08/03/2014 08/07/2014 Inactive 1 tab daily Cymbalta 60 mg capsule,delayed release RxNorm: 488081 1 Capsule(s) PO daily 07/23/2014 05/31/2015 Inactive [SAVINGS FOR UNINSURED PATIENTS -- BIN:799661, PCN: ASPROD1, Group: AME08, ID# [id number], Process claim through MedImpact, for questions: . THIS IS NOT INSURANCE.] Kenalog 40 mg/mL suspension for injection RxNorm: 9179994 1 1/2 Milliliter(s) Inj 04/27/2014 04/27/2014 Inactive [SAVINGS FOR UNINSURED PATIENTS -- BIN:706706, PCN: ASPROD1, Group: AME08, ID# [id number], Process claim through MedImpact, for questions: . THIS IS NOT INSURANCE.] meclizine 25 mg tablet RxNorm: 490362 1 Tablet(s) PO Q6 PRN 05/26/2014 Inactive [SAVINGS FOR UNINSURED PATIENTS -- BIN:927457, PCN: ASPROD1, Group: AME08 , ID# [id number], Process claim through MedImpact, for questions: . THIS IS NOT INSURANCE.] Levaquin 500 mg tablet RxNorm: 918905 1 Tablet(s) PO daily 05/03/2014 Inactive [SAVINGS FOR UNINSURED PATIENTS -- BIN:958716, PCN: ASPROD1, Group: AME08 , ID# [id number], Process claim through MedImpact, for questions: . THIS IS NOT INSURANCE.] Cymbalta 30 mg capsule,delayed release RxNorm: 608316 1 Capsule(s) PO daily 03/25/2014 07/22/2014 Inactive Cymbalta 30 mg capsule,delayed release RxNorm: 775208 1 Capsule(s) PO daily 01/28/2014 03/24/2014 Inactive furosemide 20 mg tablet RxNorm: 026702 1 Tablet(s) PO daily TAKE 1 TABLET BY MOUTH ONCE DAILY. 12/22/2013 12/16/2014 Inactive Toprol XL 25 mg tablet,extended release RxNorm: 187667 1 Tablet(s) PO daily 12/22/2013 01/24/2015 Inactive furosemide 20 mg tablet RxNorm: 191208 Tablet(s) PO TAKE 1 TABLET BY MOUTH ONCE DAILY. 12/04/2013 12/21/2013 Inactive prednisone 10 mg tablet RxNorm: 797777 Tablet(s) PO 10/28/2013 11/16/2013 Inactive 60mg d x 4 [id number] daily x 4 [id number] daily x 4 [id number] daily x 8 days5 mg daily x 8 day2.5 mg daily x 8 days2.5 mg qod x 8 doses then stop Toprol XL 25 mg tablet,extended release RxNorm: 023174 1 Tablet(s) PO daily 08/27/2013 12/21/2013 Inactive Macrobid 100 mg capsule RxNorm: 8333932 1 Capsule(s) PO BID 01/201308/24/2013 Inactive Influenza Virus Vaccine 0.5 mL RxNorm: IM 07/23/2013 07/23/2013 Inactive levofloxacin 500 mg tablet RxNorm: 137314 1 Tablet(s) PO daily 04/29/2013 05/03/2013 Inactive amitriptyline 10 mg tablet RxNorm: 331668 1 Tablet(s) PO qhs prn 1/2 to one tablet at bedtime if needed for bladder spasms 04/29/2013 08/20/2013 Inactive Cipro 250 mg tablet RxNorm: 363715 1 Tablet(s) PO BID 201204/23/2013 Inactive Levaquin 500 mg tablet RxNorm: 562096 1 Tablet(s) PO daily 07/201303/30/2013 Inactive Levaquin 500 mg tablet RxNorm: 680310 1 Tablet(s) PO daily 07/201303/23/2013 Inactive furosemide 20 mg tablet RxNorm: 171382 Tablet(s) PO TAKE 1 TABLET BY MOUTH ONCE DAILY. 03/13/2013 12/03/2013 Inactive furosemide 20 mg tablet RxNorm: 816630 Tablet(s) PO TAKE 1 TABLET BY MOUTH ONCE DAILY. 12/09/2012 03/12/2013 Inactive azithromycin 500 mg tablet RxNorm: 277065 1 Tablet(s) PO daily 11/05/2012 11/14/2012 Inactive rohan prieto Kenalog 40 mg/mL Susp for Injection RxNorm: 0535472 2 Milliliter(s) Inj 11/05/2012 11/05/2012 Inactive Cipro 500 mg tablet RxNorm: 259372 1 Tablet(s) PO BID 201102/05/2013 Inactive furosemide 20 mg tablet RxNorm: 131629 Tablet(s) PO 09/09/2012 12/08/2012 Inactive TAKE 1 TABLET BY MOUTH ONCE DAILY. Toprol XL 25 mg tablet,extended release RxNorm: 466542 1 Tablet(s) PO daily this will replace the coreg 08/26/20122012 Inactive Cipro 500 mg tablet RxNorm: 013891 1 Tablet(s) PO BID 201108/26/2012 Inactive Miralax 17 gram Oral Powder Packet RxNorm: 600268 1 PO daily 07/16/2012 Inactive Miralax 17 gram Oral Powder Packet RxNorm: 219838 1 PO daily 08/10/2013 Inactive furosemide 20 mg tablet RxNorm: 446781 Tablet(s) PO 06/10/2012 09/08/2012 Inactive TAKE 1 TABLET BY MOUTH ONCE DAILY. naproxen 500 mg tablet RxNorm: 417014 1 Tablet(s) PO 201105/08/2012 Inactive Cipro 250 mg tablet RxNorm: 936711 1 Tablet(s) PO BID Take 2 tabs BID today then 1 tab BID for the next 5 days 04/19/2012 04/25/2012 Inactive ketorolac 10 mg Tab RxNorm: 982495 1 Tablet(s) PO TID 201104/17/2012 Inactive ketorolac 60 mg/2 mL IM RxNorm: 207852 Milliliter(s) IM 201104/04/2012 Inactive ketorolac 10 mg Tab RxNorm: 419443 1 Tablet(s) PO TID 201104/10/2012 Inactive ciprofloxacin 500 mg Tab RxNorm: 836268 1 Tablet(s) PO BID 04/13/2012 Inactive ciprofloxacin 500 mg Tab RxNorm: 253773 1 Tablet(s) PO BID 04/03/2012 Inactive Coreg 3.125 mg Tab RxNorm: 186264 1 Tablet(s) PO BID 201108/25/2012 Inactive furosemide 20 mg tablet RxNorm: 617208 1 Tablet(s) PO daily 09/09/2011 Inactive Toprol XL 25 mg tablet,extended release RxNorm: 392321 1 Tablet(s) PO daily No Start Date 08/25/2012 Inactive Caltrate 600 + D oral RxNorm: 710290 oral No Start Date 11/02/2015 Inactive hydroxychloroquine 200 mg tablet RxNorm: 000833 1 Tablet(s) PO BID from dr duncan No Start Date 01/27/2014 Inactive Cipro 500 mg tablet RxNorm: 946790 1/2 Tablet(s) PO daily No Start Date 08/18/2013 Inactive Centrum Silver Ultra Women's Tab RxNorm: 1 Tablet(s) PO daily No Start Date 02/01/2016 Inactive Influenza Virus Vaccine 0.5 mL RxNorm: IM No Start Date 02/02/2016 Inactive hydrocodone 5 mg-acetaminophen 325 mg tablet RxNorm: 320899 1-2 Tablet(s) PO Q4- 6H as needed No Start Date 11/02/2015 Inactive prednisone 10 mg tablet RxNorm: 525872 Tablet(s) PO 60mg daily x 3 days, 40mg daily x 3 days, 20mg daily x 3 days, 10mg daily x 3 days, 5mg daily x 3 days, 5mg QOD x 1 week No Start Date 10/27/2013 Inactive Medication Administered Medication Codes Instructions Start Date Status Kenalog 40 mg/mL suspension for injection RxNorm: 4337221 1.5Milliliter 08/15/2017 No longer Active Kenalog 40 mg/mL suspension for injection RxNorm: 6919017 Milliliter 06/21/2016 No longer Active Kenalog 40 mg/mL suspension for injection RxNorm: 8931613 2MilliliterUD 09/17/2014 No longer Active Kenalog 40 mg/mL suspension for injection RxNorm: 9106505 Milliliter 08/03/2014 No longer Active Kenalog 40 mg/mL suspension for injection RxNorm: 2286721 1 /2Milliliter 04/27/2014 No longer Active Influenza Virus Vaccine 0.5 mL RxNorm: 07/23/2013 No longer Active Kenalog 40 mg/mL Susp for Injection RxNorm: 5853009 2Milliliter 11/05/2012 No longer Active ketorolac 60 mg/2 mL IM RxNorm: 887244 Milliliter 04/04/2012 No longer Active Immunizations Vaccine [...] 02/06/2013 Irritated nevus of neck ICD-9: 216.4 ACUTE URI ICD-9: 465.9 11/05/2012 COUGH ICD-9: 786.2 11/05/2012 ILL-DEFINE CONDITION NEC ICD-9: 799.89 Microscopic hematuria ICD-9: 599.72 08/20 Abdominal pain ICD-9: 789.00 07/16/2012 Constipation - functional ICD-9: 564.09 07/16/2012 HEADACHE ICD-9: 784.0 05/08/2012 CERVICALGIA ICD-9: [...] Observation Code Item Item Code Result Date Lipid Ord30 CHOL 176 mg/dL 07/10/2017 Lipid Ord30 HDL 37.0 mg/dl 07/10/2017 Lipid Ord30 TRIG 143 mg/dL 07/10/2017 Lipid Ord30 LDL 110 mg/dL 07/10/2017 Lipid Ord30 C/HDL 4.8 Ratio 07/10/2017 Tsh Ord6 hTSH II 2.26 uIU/mL 07/10/2017 Comp Metabolic Vpx948 NA 140 mEq/L 07/10/2017 Comp Metabolic Nmn900 K 4.2 mEq/L 07/10/2017 Comp Metabolic Lhs388 CL 106 mEq/L 07/10/2017 Comp Metabolic Yte569 CO2 26.0 mEq/L 07/10/2017 Comp Metabolic Url455 ANION GAP 12 07/10/2017 Comp Metabolic Ixn253 GLUCOSE 89 mg/dL 07/10/2017 Comp Metabolic Pxv277 Creat 0.6 mg/dL 07/10/2017 Comp Metabolic Fci773 eGFR 105 ml/min/1.73m2 07/10/2017 Comp Metabolic Blm500 BUN 9 mg/dL 07/10/2017 Comp Metabolic Klo097 B/C Ratio 15.0 Ratio 07/10/2017 Comp Metabolic Rka447 CALCIUM 9.4 mg/dL 07/10/2017 Comp Metabolic Mmp513 ALK PHOS 90 U/L 07/10/2017 Comp Metabolic Vdd612 AST(SGOT) 15 U/L 07/10/2017 Comp Metabolic Hco818 ALT(SGPT) 14 U/L 07/10/2017 Comp Metabolic Yyk524 BILI T 0.5 mg/dL 07/10/2017 Comp Metabolic Koc030 ALBUMIN 4.0 g/dL 07/10/2017 Comp Metabolic Tjt732 TPRO 6.2 g/dL 07/10/2017 Comp Metabolic Eew039 GLOB 2.2 g/dL 07/10/2017 Comp Metabolic Twj432 A/G Ratio 1.8 Ratio 07/10/2017 Comp Metabolic Xfv353 Osmo 278 mOsmo 07/10/2017 Cbc With Differential [...] 32.3 pg 07/10/2017 Cbc With Differential Ord2 [place]% 6.2 % 07/10/2017 Cbc With Differential Ord2 [...] 2.19 K/ul 07/10/2017 Cbc With Differential Ord2 [place] ABS# 0.5 K/ul 07/10/2017 Cbc With Differential Ord2 Eos ABS# 0.1 K/ul 07/10/2017 Cbc With Differential Ord2 Baso ABS# 0.0 K/ul 07/10/2017 Culture Urine [id number] URINE CULTURE SEE NOTES 02/05/2017 Urine Culture Ucult Complete >100,000 col/ml aerobic growth sent to ref lab 02/03/2017 Culture Urine [id number] URINE CULTURE SEE NOTES 12/18/2016 Culture Urine [id number] Continued Results 12/18/2016 Urine Culture Ucult Complete [...] 32.4 pg 02/03/2016 Cbc With Differential Ord2 [place]% 6.6 % 02/03/2016 Cbc With Differential Ord2 [...] 2.38 K/ul 02/03/2016 Cbc With Differential Ord2 [place] ABS# 0.5 K/ul 02/03/2016 Cbc With Differential Ord2 Eos ABS# 0.2 K/ul 02/03/2016 Cbc With Differential Ord2 Baso ABS# 0.0 K/ul 02/03/2016 Cbc With Differential Ord2 New Analyzer Notice Please note new ref ranges starting 10-27-2015 due to implemntation of new five part differential hematolgy analyzer. 02/03/2016 Comp Metabolic Duo468 NA 136 mEq/L 02/03/2016 Comp Metabolic Vnq472 K 4.0 mEq/L 02/03/2016 Comp Metabolic Usg172 CL 102 mEq/L 02/03/2016 Comp Metabolic Jue293 CO2 28.0 mEq/L 02/03/2016 Comp Metabolic Nks639 ANION GAP 10 02/03/2016 Comp Metabolic Bzt542 GLUCOSE 85 mg/dL 02/03/2016 Comp Metabolic Whb182 Creat 0.7 mg/dL 02/03/2016 Comp Metabolic Ufg007 eGFR 88 ml/min/1.73m2 02/03/2016 Comp Metabolic Aao279 BUN 15 mg/dL 02/03/2016 Comp Metabolic Phx151 B/C Ratio 21.4 Ratio 02/03/2016 Comp Metabolic Kug669 CALCIUM 9.2 mg/dL 02/03/2016 Comp Metabolic Uyo267 ALK PHOS 81 U/L 02/03/2016 Comp Metabolic Smc073 AST(SGOT) 19 U/L 02/03/2016 Comp Metabolic Rqp112 ALT(SGPT) 22 U/L 02/03/2016 Comp Metabolic Yrl099 BILI T 0.5 mg/dL 02/03/2016 Comp Metabolic Jpq391 ALBUMIN 4.1 g/dL 02/03/2016 Comp Metabolic Oeq847 TPRO 6.4 g/dL 02/03/2016 Comp Metabolic Msv666 GLOB 2.3 g/dL 02/03/2016 Comp Metabolic Qgr129 A/G Ratio 1.8 Ratio 02/03/2016 Comp Metabolic Ebo698 Osmo 272 mOsmo 02/03/2016 Tsh Ord6 hTSH II 1.61 uIU/mL 02/03/2016 CRP 20080207 CRP 1.8 MG/DL 08/21/2013 GFR CALC 6038228 GFR AA >60 ML/MIN 08/21/2013 GFR CALC 9356101 GFR NON-AA >60 ML/MIN 08/21/2013 CBC 7028242 WBC 9.0 10e9/L 08/21/2013 CBC 1848094 RBC 4.68 10e12/L 08/21/2013 CBC 9907889 HGB 15.0 g/dL 08/21/2013 CBC 3010018 HCT DET 43.8 % 08/21/2013 CBC 5479317 MCV 93.6 fL 08/21/2013 CBC 6047369 MCH 32.1 pg 08/21/2013 CBC 5455103 MCHC 34.2 g/dL 08/21/2013 CBC 4383425 PLT 267 10e9/L 08/21/2013 CBC 3508229 MPV 9.0 fL 08/21/2013 CBC 0066135 MARGE % 67.8 % 08/21/2013 CBC 7919880 LY % 24.8 % 08/21/2013 CBC 5666935 MON % 6.2 % 08/21/2013 CBC 6962906 EOS % 1.0 % 08/21/2013 CBC 6999536 BASO % 0.2 % 08/21/2013 CBC 0339333 RDW 13.1 % 08/21/2013 CBC 7124445 ABS MARGE 6.10 10e9/L 08/21/2013 CBC 5538922 ABS LYMPH 2.23 10e9/L 08/21/2013 CBC 9186966 ABS MONO 0.56 10e9/L 08/21/2013 CBC 2151562 ABS EOS 0.09 10e9/L 08/21/2013 CBC 4965842 ABS BASO 0.02 10e9/L 08/21/2013 CBC 2947145 RDW-SD 43.9 fL 08/21/2013 TSH 4752232 TSH 1.898 uIU/ML 08/21/2013 MAGNESIUM 0676004 MAGNESIUM 1.7 MEQ/L 08/21/2013 CHEM 14 4060543 AST 16 U/L 08/21/2013 CHEM 14 8041625 ALT 15 IU/L 08/21/2013 CHEM 14 6100035 BUN 14 MG/DL 08/21/2013 CHEM 14 3789318 ALBUMIN 4.4 GM/DL 08/21/2013 CHEM 14 3694542 CHLORIDE 103 MMOL/L 08/21/2013 CHEM 14 5307066 BILI TOT 0.6 MG/DL 08/21/2013 CHEM 14 0815837 ALK PHOS 80 U/L 08/21/2013 CHEM 14 5545993 SODIUM 138 MMOL/L 08/21/2013 CHEM 14 8323645 CREATININE 0.76 MG/DL 08/21/2013 CHEM 14 5245906 CALCIUM 10.2 MG/DL 08/21/2013 CHEM 14 8174569 POTASSIUM 4.0 MMOL/L 08/21/2013 CHEM 14 1805905 PROT TOT 7.0 GM/DL 08/21/2013 CHEM 14 8709485 GLUCOSE 95 MG/DL 08/21/2013 CHEM 14 3586163 BICARB 29 MMOL/L 08/21/2013 CHEM 14 0291211 ANION GAP 6 MEQ/L 08/21/2013 URINALYSIS NONAUTO W/O SCOPE 53140 Specific [place] 1.020 DateTime(Free Text in Aprima) URINALYSIS NONAUTO W/O SCOPE 26167 PH 5.0 DateTime(Free Text in Aprima) URINALYSIS NONAUTO W/O SCOPE 45018 GLUCOSE Negative DateTime(Free Text in Aprima) URINALYSIS NONAUTO W/O SCOPE 44226 Protein Negative DateTime(Free Text in Aprima) URINALYSIS NONAUTO W/O SCOPE 47721 Blood Mod. Blood DateTime( Free Text in Aprima) URINALYSIS NONAUTO W/O SCOPE 57057 Bilirubin Negative DateTime(Free Text in Aprima) URINALYSIS NONAUTO W/O SCOPE 59238 Ketones Negative DateTime(Free Text in Aprima) URINALYSIS NONAUTO W/O SCOPE 71055 Urobilinogen Negative DateTime(Free Text in Aprima) URINALYSIS NONAUTO W/O SCOPE 26130 Nitrite Negative DateTime(Free Text in Aprima) URINALYSIS NONAUTO W/O SCOPE 65983 Leukocytes Negative DateTime(Free Text in Aprima) URINALYSIS NONAUTO W/O SCOPE 90453 Specific [place] 1.010 DateTime(Free Text in Aprima) URINALYSIS NONAUTO W/O SCOPE 75933 PH 6.0 DateTime(Free Text in Aprima) URINALYSIS NONAUTO W/O SCOPE 49697 GLUCOSE neg DateTime( Free Text in Aprima) URINALYSIS NONAUTO W/O SCOPE 63511 Protein neg DateTime( Free Text in Aprima) URINALYSIS NONAUTO W/O SCOPE 79064 Blood 1+ DateTime(Free Text in Aprima) URINALYSIS NONAUTO W/O SCOPE 65280 Bilirubin neg DateTime(Free Text in Aprima) URINALYSIS NONAUTO W/O SCOPE 04574 Ketones neg DateTime( Free Text in Aprima) URINALYSIS NONAUTO W/O SCOPE 55723 Urobilinogen neg DateTime(Free Text in Aprima) URINALYSIS NONAUTO W/O SCOPE 37886 Nitrite neg DateTime( Free Text in Aprima) URINALYSIS NONAUTO W/O SCOPE 50247 Leukocytes 1+ DateTime(Free Text in Aprima) UA 63436 Specific [place] 1.005 DateTime(Free Text in Aprima ) UA 70173 PH 5 DateTime(Free Text in Aprima) UA 83426 GLUCOSE neg DateTime(Free Text in Aprima) UA 54289 Protein neg DateTime(Free Text in Aprima) UA 83583 Blood 1+ DateTime(Free Text in Aprima) UA 91423 Bilirubin neg DateTime(Free Text in Aprima) UA 08313 Ketones neg DateTime(Free Text in Aprima) UA 27209 Urobilinogen neg DateTime(Free Text in Aprima) UA 12025 Nitrite neg DateTime(Free Text in Aprima) UA 49362 Leukocytes 1+ DateTime(Free Text in Aprima) UA 88000 Specific [place] 1.005 DateTime(Free Text in Aprima ) UA 19853 PH 6.0 DateTime(Free Text in Aprima) UA 46470 GLUCOSE neg DateTime(Free Text in Aprima) UA 54529 Protein neg DateTime(Free Text in Aprima) UA 48865 Blood 1+ DateTime(Free Text in Aprima) UA 16978 Bilirubin neg DateTime(Free Text in Aprima) UA 34248 Ketones neg DateTime(Free Text in ) UA 31640 Urobilinogen neg DateTime(Free Text in ) UA 78853 Nitrite neg DateTime(Free Text in ) UA 45928 Leukocytes neg DateTime(Free Text in ) Review [...] affect 08/22/2017 None Full Exam - General [facility] Psychiatric appearance Overall: well-groomed, good eye contact [...] size 04/04/2012 None Full Exam - General 1993 Neck [...] Codes Date URINALYSIS NONAUTO W/O SCOPE CPT-4: 87998 11/25/2018 PPPS, SUBSEQ VISIT CPT -4: G0439 09/02/2018 ADMIN INFLUENZA VIRUS VAC CPT-4: G0008 06/18/2018 ADMIN PNEUMOCOCCAL VACCINE SNOMED CT: 53315240 CPT-4: G0009 06/18/2018 PNEUMOCOCCAL VACC [address]: 28954288 CPT-4: 00911 06/18/2018 FLU VAC NO PRSV 4 DONTE 3 YRS+ Formatting Model/CDA Sections, Assigned to/GavinoAbigail CPT-4: 19812Bjduexe 06/18/2018 PPPS, SUBSEQ VISIT CPT -4: G0439 08/22/2017 THER/PROPH/DIAG INJ SC/IM CPT-4: 67829 08/15/2017 TRIAMCINOLONE ACET INJ NOS CPT-4: J3301 08/15/2017 TOBACCO-USE CELL LEAD 3-[address]: 937061129 CPT-4: G0436 12/12/2016 URINALYSIS NONAUTO W/O SCOPE CPT-4: 04201 12/12/2016 ADMIN INFLUENZA VIRUS VAC CPT-4: G0008 07/19/2016 FLU VACC 4 DONTE 3 YRS PLUS IM Formatting Model/CDA Sections, Assigned to/Abigail Mancia SNOMED CT: 11296416 CPT-4: 02987Qmvghux 07/19/2016 TRIAMCINOLONE ACET INJ NOS CPT-4: J3301 06/21/2016 TOBACCO-USE CELL LEAD 3-[address]: 385210443 CPT-4: G0436 02/02/2016 ADMIN INFLUENZA VIRUS VAC CPT-4: G0008 08/25/2015 FLU VACC PRSV FREE INC ANTIG Formatting Model/CDA Sections, Assigned to/Abigail Mancia CPT-4: 39127Mohewso 08/25/2015 BIOPSY SKIN LESION CPT -4: 89178 02/02/2015 TRIAMCINOLONE ACET INJ NOS CPT-4: J3301 09/15/2014 DRAIN/INJECT JOINT/BURSA CPT-4: 92400 09/15/2014 TRIAMCINOLONE ACET INJ NOS CPT-4: J3301 08/03/2014 ADMIN INFLUENZA VIRUS VAC CPT-4: G0008 06/29/2014 FLU VAC NO PRSV 4 DONTE 3 YRS+ Assigned to/Abigail Mancia CPT-4: 98006Hgqnpun 06/29/2014 TRIAMCINOLONE ACET INJ NOS CPT-4: J3301 04/27/2014 ROUTINE VENIPUNCTURE CPT-4: 66605 08/21/2013 URINALYSIS NONAUTO W/O SCOPE CPT-4: 02600 08/18/2013 PRESCRIP TRANSMIT VIA ERX SY CPT-4: G8553 08/18/2013 ADMIN PNEUMOCOCCAL VACCINE SNOMED CT: [id number] CPT-4: G0009 07/31/2013 Pneumococcal Polysaccharide Vaccine, 23-Valent, Ad CPT-4: 25923 07/31/2013 ADMIN INFLUENZA VIRUS VAC CPT-4: G0008 07/23/2013 FLULAVAL VACC, 3 YRS & >, IM CPT-4: Q2036 07/23/2013 PRESCRIP TRANSMIT VIA ERX SY CPT-4: G8553 04/29/2013 URINALYSIS NONAUTO W/O SCOPE CPT-4: 64595 04/14/2013 URINALYSIS NONAUTO W/O SCOPE CPT-4: 13932 03/24/2013 REMOVAL OF SKIN TAGS <W/15 CPT-4: 30673 02/06/2013 TRIAMCINOLONE ACET INJ NOS CPT-4: J3301 11/05/2012 THER/PROPH/DIAG INJ SC/IM CPT-4: 39127 11/05/2012 PRESCRIP TRANSMIT VIA ERX SY CPT-4: G8553 11/05/2012 URINALYSIS NONAUTO W/O SCOPE CPT-4: 19591 10/31/2012 URINALYSIS NONAUTO W/O SCOPE CPT-4: 67355 09/25/2012 PRESCRIP TRANSMIT VIA ERX SY CPT-4: G8553 09/25/2012 URINALYSIS NONAUTO W/O SCOPE CPT-4: 94014 08/20/2012 PRESCRIP TRANSMIT VIA ERX SY CPT-4: G8553 08/20/2012 ADMIN INFLUENZA VIRUS VAC CPT-4: G0008 07/01/2012 FLULAVAL VACC, 3 YRS & >, IM CPT-4: Q2036 07/01/2012 URINALYSIS NONAUTO W/O SCOPE CPT-4: 09823 04/19/2012 KETOROLAC TROMETHAMINE INJ CPT-4: J1885 04/04/2012 PRESCRIP TRANSMIT VIA ERX SY CPT-4: G8553 04/04/2012 PRESCRIP TRANSMIT VIA ERX SY CPT-4: G8553 04/01/2012 Vital Signs Date Vital 11/25/2018 Blood Pressure 1: 150/72 Code : 8480-6 BMI: 24.3 Code : 14257-5 Heart Rate 1 : 65 bpm Height: 5'8" SpO2: 98% Temperature: 36.5 (C) / 97.7 (F) Weight: 160 lbs 10/14/2018 Blood Pressure 1: 140/80 Code : 8480-6 BMI: 24.7 Code : 58783-1 Heart Rate 1 : 59 bpm Height: 5'8" SpO2: 97% Weight: 162 lbs 2 oz 09/02/2018 Blood Pressure 1: 140/76 Code : 8480-6 BMI: 21.9 Code : 03290-0 Heart Rate 1 : 56 bpm Height: 5'8" SpO2: 97% Waist Measure (cm): 94 cm Weight: 144 lbs 05/21/2018 Blood Pressure 1: 136/80 Code : 8480-6 BMI: 24.6 Code : 30600-3 Heart Rate 1 : 57 bpm Height: 5'8" SpO2: 96% Weight: 162 lbs 03/04/2018 Blood Pressure 1: 160/82 Code : 8480-6 BMI: 24.3 Code : 99933-4 Heart Rate 1 : 67 bpm Height: 5'8" SpO2: 99% Temperature: 36.6 (C) / 97.9 (F) Weight: 160 lbs 01/22/2018 Blood Pressure 1: 132/84 Code : 8480-6 BMI: 24.2 Code : 00981-9 Heart Rate 1 : 64 bpm Height: 5'8" SpO2: 95% Weight: 159 lbs 10/22/2017 Blood Pressure 1: 152/78 Code : 8480-6 BMI: 24.0 Code : 08461-0 Heart Rate 1 : 68 bpm Height: 5'8" SpO2: 97% Weight: 158 lbs 08/22/2017 BMI: 24.8 Code: 71281-8 Height: 5'8" Weight: 163 lbs 08/15/2017 Blood Pressure 1: 140/74 Code : 8480-6 Heart Rate 1: 75 bpm Height: 5'8" SpO2: 96% Weight: 06/19/2017 Blood Pressure 1: 146/62 Code : 8480-6 BMI: 25.7 Code : 51953-9 Heart Rate 1 : 64 bpm Height: 5'8" SpO2: 96% Weight: 169 lbs 02/13/2017 Blood Pressure 1: 150/78 Code : 8480-6 BMI: 27.2 Code : 86997-8 Heart Rate 1 : 70 bpm Height: 5'8" SpO2: 96% Weight: 179 lbs 02/05/2017 Blood Pressure 1: 146/74 Code : 8480-6 BMI: 26.9 Code : 62730-4 Heart Rate 1 : 70 bpm Height: 5'8" SpO2: 96% Weight: 177 lbs 02/02/2017 Blood Pressure 1: 124/62 Code : 8480-6 BMI: 26.9 Code : 22581-7 Heart Rate 1 : 54 bpm Height: 5'8" SpO2: 94% Weight: 177 lbs 12/12/2016 Blood Pressure 1: 130/72 Code : 8480-6 BMI: 27.1 Code : 31004-3 Heart Rate 1 : 82 bpm Height: 5'8" SpO2: 95% Weight: 178 lbs 8 oz 06/21/2016 Blood Pressure 1: 136/74 Code : 8480-6 BMI: 25.8 Code : 24621-4 Heart Rate 1 : 86 bpm Height: 5'8" SpO2: 98% Weight: 170 lbs 05/24/2016 Blood Pressure 1: 132/80 Code : 8480-6 BMI: 25.7 Code : 55080-1 Heart Rate 1 : 67 bpm Height: 5'8" SpO2: 96% Weight: 169 lbs 02/02/2016 Blood Pressure 1: 138/80 Code : 8480-6 BMI: 25.8 Code : 31668-2 Heart Rate 1 : 67 bpm Height: 5'8" SpO2: 94% Weight: 170 lbs 11/03/2015 Blood Pressure 1: 138/82 Code : 8480-6 BMI: 26.0 Code : 43040-4 Heart Rate 1 : 80 bpm Height: 5'8" SpO2: 92% Weight: 171 lbs 02/02/2015 Blood Pressure 1: 136/88 Code : 8480-6 BMI: 26.6 Code : 71830-0 Heart Rate 1 : 67 bpm Height: 5'8" SpO2: 97% Temperature: 37.2 (C) / 98.9 (F) Weight: 175 lbs 01/25/2015 Blood Pressure 1: 150/92 Code : 8480-6 BMI: 26.6 Code : 43349-1 Heart Rate 1 : 79 bpm Height: 5'8" SpO2: 98% Weight: 175 lbs 11/26/2014 Blood Pressure 1: 148/92 Code : 8480-6 Blood Pressure 2: 142/92 Code: 8480-6 BMI: 26.5 Code: 32175-8 Heart Rate 1: 68 bpm Height: 5'8" Weight: 174 lbs 09/15/2014 Blood Pressure 1: 150/84 Code : 8480-6 BMI: 26.5 Code : 54693-5 Heart Rate 1 : 80 bpm Height: 5'8" Weight: 174 lbs 08/13/2014 Blood Pressure 1: 140/84 Code : 8480-6 Heart Rate 1: 82 bpm Height: Weight: 08/03/2014 Blood Pressure 1: 142/76 Code : 8480-6 BMI: 26.3 Code : 15442-7 Heart Rate 1 : 80 bpm Height: 5'8" Weight: 173 lbs 07/23/2014 Blood Pressure 1: 148/80 Code : 8480-6 Heart Rate 1: 76 bpm Weight: 175 lbs 06/29/2014 Blood Pressure 1: 140/82 Code : 8480-6 BMI: 26.5 Code : 99553-8 Heart Rate 1 : 60 bpm Height: 5'8" Weight: 174 lbs 04/27/2014 Blood Pressure 1: 112/70 Code : 8480-6 BMI: 26.5 Code : 80587-8 Heart Rate 1 : 72 bpm Height: 5'8" SpO2: 98% Weight: 174 lbs 01/28/2014 Blood Pressure 1: 134/80 Code : 8480-6 BMI: 26.6 Code : 03926-9 Heart Rate 1 : 72 bpm Height: 5'8" Weight: 175 lbs 01/05/2014 Blood Pressure 1: 142/86 Code : 8480-6 BMI: 27.2 Code : 89263-2 Heart Rate 1 : 78 bpm Height: 5'8" Weight: 179 lbs 11/17/2013 Blood Pressure 1: 118/62 Code : 8480-6 BMI: 27.1 Code : 82014-7 Heart Rate 1 : 76 bpm Height: 5'8" Weight: 178 lbs 08/27/2013 Blood Pressure 1: 126/80 Code : 8480-6 BMI: 26.6 Code : 71906-5 Heart Rate 1 : 72 bpm Height: [...] Code : 8480-6 BMI: 26.5 Code : 63854-6 Heart Rate 1 : 72 bpm Height: 5'8" Weight: 174 lbs 8 oz 03/24/2013 Blood Pressure 1: 112/78 Code : 8480-6 BMI: 26.2 Code : 38460-9 Heart Rate 1 : 72 bpm Height: [...] data Encounters Encounter Performer Location Codes Date ([id number]) 27944 EST. PATIENT, LEVEL IV Diagnosis: Essential (primary) hypertension[ICD10: I10] Diagnosis: Dysuria[ICD10: R30.0] Diagnosis: Personal history of urinary (tract) infections[ICD10: Z87.440] Tessa George MD, [facility] CPT-4: 28288 11/25/2018 ([id number]) 69740 EST. PATIENT, LEVEL III Diagnosis: Diverticulitis of large intestine without perforation or abscess without bleeding[ICD10: K57.32] Tessa George MD, [facility] CPT-4: 16064 10/14/2018 ([id number]) 32326 EST. PATIENT, LEVEL IV Diagnosis: Essential (primary) hypertension[ICD10: I10] Diagnosis: Tobacco use[ICD10: Z72.0] Diagnosis: Functional diarrhea[ICD10: K59.1] Tessa George MD, [facility] CPT-4: 59515 05/21/2018 ([id number]) 43276 EST. PATIENT, LEVEL III Diagnosis: Insect bite (nonvenomous) of abdominal wall, initial encounter[ICD10 : S30.861A] Tessa George MD, [facility] CPT-4: 54208 ([id number]) 67355 EST. PATIENT, LEVEL IV Diagnosis: Essential (primary) hypertension[ICD10: I10] Diagnosis: Tobacco use[ICD10: Z72.0] Diagnosis: Functional diarrhea[ICD10: K59.1] Tessa George MD, [facility] CPT-4: 54021 01/22/2018 ([id number]) 93238 EST. PATIENT, LEVEL III Diagnosis: Essential (primary) hypertension[ICD10: I10] Diagnosis: Functional diarrhea[ICD10: K59.1] Tessa George MD, [facility] CPT-4: 44089 10/22/2017 32581 EST. PATIENT, LEVEL III Diagnosis: Rash and other nonspecific skin eruption[ICD10: R21] Brooke George MD, [facility] CPT-4: 04446 08/15/2017 ([id number]) 59993 EST. PATIENT, LEVEL IV Diagnosis: Essential (primary) hypertension[ICD10: I10] Diagnosis: Functional diarrhea[ICD10: K59.1] Diagnosis: Epigastric pain[ICD10: R10.13] Tessa George MD, [facility] CPT- 4: 69285 06/19/2017 ([id number]) 14694 EST. PATIENT, LEVEL IV Diagnosis: Essential (primary) hypertension[ICD10: I10] Diagnosis: Epigastric pain[ICD10: R10.13] Tessa George MD, [facility] CPT- 4: 73750 02/13/2017 03512 EST. PATIENT, LEVEL IV Diagnosis: Low back pain[ICD10: M54.5] Brooke George MD, [facility] CPT-4 : 38672 02/05/2017 30990 EST. PATIENT, LEVEL IV Diagnosis: Dysuria[ICD10: R30.0] Diagnosis: Low back pain[ICD10: M54.5] Brooke George MD, [facility] CPT-4 : 15218 02/02/2017 ([id number]) 04690 EST. PATIENT, LEVEL IV Diagnosis: Essential (primary) hypertension[ICD10: I10] Diagnosis: Dysuria[ICD10: R30.0] Diagnosis: Tobacco use[ICD10: Z72.0] Tessa George MD, [facility] CPT-4: 45693 12/12/2016 81947 EST. PATIENT, LEVEL IV Diagnosis: Other acute sinusitis[ICD10: J01.80] Diagnosis: Other allergic rhinitis[ICD10: J30.89] Brooke George MD, [facility] CPT-4: 00540 06/21/2016 ([id number]) 20571 EST. PATIENT, LEVEL III Diagnosis: Essential (primary) hypertension[ICD10: I10] Diagnosis: Major depressive disorder, single episode, unspecified[ICD10: F32.9] Tessa George MD [facility] CPT-4: 75428 05/24/2016 ([id number]) 46160 EST. PATIENT, LEVEL IV Diagnosis: Essential (primary) hypertension[ICD10: I10] Diagnosis: Major depressive disorder, single episode, unspecified[ICD10: F32.9] Diagnosis: Tobacco use[ICD10: Z72.0] Tessa George MD [facility] CPT-4: 91735 02/02/2016 ([id number]) 58018 EST. PATIENT, LEVEL IV Diagnosis: Essential (primary) hypertension[ICD10: I10] Diagnosis: Polymyalgia rheumatica[ICD10: M35.3] Diagnosis: Major depressive disorder, single episode, unspecified[ICD10: F32.9] Tessa George MD [facility] CPT-4: 88020 11/03/2015 ([id number]) Miscellaneous no charge Diagnosis: Hyperpigmented skin lesion[ICD9: 709.00] Tessa George MD [facility] CPT-4: 02285 02/12/2015 ([id number]) 03453 EST. PATIENT, LEVEL IV Diagnosis: ESSENTIAL HYPERTENSION[ICD9: 401.9] Diagnosis: DEPRESSIVE DISORDER NEC[ICD9: 311] Diagnosis: POLYMYALGIA RHEUMATICA[ICD9: 725] Tessa George MD [facility] CPT-4: 81514 01/25/2015 ([id number]) 34823 EST. PATIENT, LEVEL IV Diagnosis: ESSENTIAL HYPERTENSION[ICD9: 401.9] Diagnosis: Polymyalgia rheumatica syndrome[ICD9: 725] Diagnosis: Smoking[ICD9: 305.1] Tessa George MD [facility] CPT-4: 99630 11/26/2014 ([id number]) 35352 EST. PATIENT, LEVEL III Diagnosis: ESSENTIAL HYPERTENSION[ICD9: 401.9] Diagnosis: Sacroiliitis[ICD9: 720.2] Tessa George MD [facility] CPT-4: 54534 09/15/2014 ([id number]) 02942 EST. PATIENT, LEVEL III Diagnosis: Hip pain[ICD9: 719.45] Diagnosis: Sacroiliac pain[ICD9: 724.6] Tessa George MD, [facility] CPT- 4: 20733 08/13/2014 ([id number]) 76645 EST. PATIENT, LEVEL III Diagnosis: ACUTE SINUSITIS[ICD9: 461.9] Diagnosis: ALLERGIC RHINITIS[ICD9: 477.9] Aviva George MD, [facility] CPT-4: 71045 08/03/2014 ([id number]) 88900 EST. PATIENT, LEVEL IV Diagnosis: ESSENTIAL HYPERTENSION[ICD9: 401.9] Diagnosis: DEPRESSIVE DISORDER NEC[ICD9: 311] Diagnosis: POLYMYALGIA RHEUMATICA[ICD9: 725] Tessa George MD [facility] CPT-4: 62390 07/23/2014 ([id number]) 16879 EST. PATIENT, LEVEL IV Diagnosis: ESSENTIAL HYPERTENSION[ICD9: 401.9] Diagnosis: DEPRESSIVE DISORDER NEC[ICD9: 311] Diagnosis: POLYMYALGIA RHEUMATICA[ICD9: 725] Diagnosis: VACCIN FOR INFLUENZA[ICD10: Z23] Tessa George MD, [facility] CPT-4: 05008 06/29/2014 ([id number]) 89253 EST. PATIENT, LEVEL III Diagnosis: ACUTE MAXILLARY SINUSITIS[ICD9: 461.0] Diagnosis: BPPV (benign paroxysmal positional vertigo)[ICD9: 386.11] Aviva George MD [facility] CPT-4: 19925 04/27/2014 ([id number]) 54146 EST. PATIENT, LEVEL III Diagnosis: ESSENTIAL HYPERTENSION[SNOMED: 63212205] Diagnosis: Fatigue[ICD9: 780.79] Diagnosis: DEPRESSIVE DISORDER NEC[ICD9: 311] Tessa George MD, [facility] CPT-4: 25471 01/28/2014 ([id number]) 50830 EST. PATIENT, LEVEL III Diagnosis: ESSENTIAL HYPERTENSION[SNOMED: 57050495] Diagnosis: Blurry vision, bilateral[ICD9: 368.8] Tessa George MD [facility] CPT-4: 31065 01/05/2014 ([id number]) 31260 EST. PATIENT, LEVEL IV Diagnosis: POLYMYALGIA RHEUMATICA[ICD9: 725] Diagnosis: PAIN IN LIMB[ICD9: 729.5] Diagnosis: ESSENTIAL HYPERTENSION[SNOMED: 56139808] Tessa George MD, [facility] CPT-4: 51913 11/17/2013 ([id number]) 66670 EST. PATIENT, LEVEL III Diagnosis: Polymyalgia rheumatica syndrome[ICD9: 725] Tessa George MD [facility] CPT-4: 91571 08/27/2013 ([id number]) 23866 EST. PATIENT, LEVEL III Diagnosis: ESSENTIAL HYPERTENSION[SNOMED: 58904511] Diagnosis: Fatigue[ICD9: 780.79] Tessa George MD [facility] CPT-4: 27150 08/21/2013 ([id number]) 50705 EST. PATIENT, LEVEL III Diagnosis: Urinary tract infection[ICD9: 599.0] Diagnosis: ESSENTIAL HYPERTENSION[SNOMED: 58110282] Aviva George MD [facility] CPT-4: 20721 08/18/2013 ([id number]) 05044 EST. PATIENT, LEVEL IV Diagnosis: ESSENTIAL HYPERTENSION[SNOMED: 81302049] Diagnosis: HEMATURIA NOS[ICD9: 599.70] Diagnosis: CHRONIC INTERSTITIAL CYSTITIS[ICD9: 595.1] Tessa George MD [facility] CPT-4: 90322 04/29/2013 ([id number]) 43699 EST. PATIENT, LEVEL III Diagnosis: Recurrent urinary tract infection[ICD9: 599.0] Diagnosis: DYSURIA[ICD9: 788.1] Tessa George MD [facility] CPT-4: 05212 03/24/2013 ([id number]) 28354 EST. PATIENT, LEVEL IV Diagnosis: ESSENTIAL HYPERTENSION[SNOMED: 14599151] Diagnosis: HYPERLIPIDEMIA[ICD9: 272.4] Diagnosis: Irritated nevus of neck[ICD9: 216.4] Tessa George MD [facility] CPT-4: 85916 02/06/2013 ([id number]) 62734 EST. PATIENT, LEVEL III Diagnosis: ACUTE MAXILLARY SINUSITIS[ICD9: 461.0] Diagnosis: ACUTE URI[ICD9: 465.9] Diagnosis: COUGH[ICD9: 786.2] Tessa George MD, [facility] CPT-4: 58046 11/05/2012 ([id number]) 71147 EST. PATIENT, LEVEL III Diagnosis: ESSENTIAL HYPERTENSION[SNOMED: 88825138] Diagnosis: ILL-DEFINE CONDITION NEC[ICD9: 799.89] Tessa George MD [facility] CPT-4: 10940 10/31/2012 ([id number]) 18696 EST. PATIENT, LEVEL III Diagnosis: ESSENTIAL HYPERTENSION[SNOMED: 54289741] Tessa George MD [facility] CPT-4: 87888 09/03/2012 ([id number]) 16604 EST. PATIENT, LEVEL III Diagnosis: UTI[ICD9: 599.0] Diagnosis: Microscopic hematuria[ICD9: 599.72] Diagnosis: ESSENTIAL HYPERTENSION[SNOMED: 64417179] Tessa George MD [facility] CPT-4: 95782 08/20/2012 ([id number]) 19612 EST. PATIENT, LEVEL IV Diagnosis: Constipation - functional[ICD9: 564.09] Diagnosis: Abdominal pain[ICD9: 789.00] Tessa George MD [facility] CPT- 4: 35328 07/16/2012 ([id number]) 20666 EST. PATIENT, LEVEL IV Diagnosis: ESSENTIAL HYPERTENSION[SNOMED: 51097725] Diagnosis: Fatigue[ICD9: 780.79] Diagnosis: Constipation - functional[ICD9: 564.09] Tessa George MD [facility] CPT-4: 93973 07/01/2012 ([id number]) 94583 EST. PATIENT, LEVEL III Diagnosis: ESSENTIAL HYPERTENSION[SNOMED: 60070464] Diagnosis: HEADACHE[ICD9: 784.0] Tessa George MD [facility] CPT-4: 26855 05/08/2012 67843 EST. PATIENT, LEVEL IV Diagnosis: Urinary tract infection[ICD9: 599.0] Diagnosis: ESSENTIAL HYPERTENSION[SNOMED: 82966579] Diagnosis: Fatigue[ICD9: 780.79] Tessa George MD [facility] CPT-4: 20853 04/19/2012 ([id number]) 63531 EST. PATIENT, LEVEL IV Diagnosis: ESSENTIAL HYPERTENSION[SNOMED: 19795073] Diagnosis: Mouth dryness[ICD9: 527.7] Diagnosis: HEADACHE[ICD9: 784.0] Diagnosis: CERVICALGIA[ICD9: 723.1] [facility] CPT-4: 55479 04/15/2012 ([id number]) 13432 EST. PATIENT, LEVEL IV Diagnosis: Urinary tract infection[ICD9: 599.0] Diagnosis: Generally unwell[ICD9: 799.89] Diagnosis: ESSENTIAL HYPERTENSION[SNOMED: 46092316] Diagnosis: MYALGIA AND MYOSITIS[ICD9: 729.1] [facility] CPT-4: 41938 04/04/2012 ([id number]) 45725 EST. PATIENT, LEVEL IV Diagnosis: ESSENTIAL HYPERTENSION[SNOMED: 01204758] Diagnosis: Unsteady gait[ICD9: 781.2] Diagnosis: Neck pain[ICD9: 723.1] Tessa George MD, [facility] CPT-4: 47442 04/01/2012 ([id number]) Patient admitted to the hospital from clinic (NO CHARGE) Diagnosis: Pericardial rub[ICD9: 785.3] Diagnosis: ESSENTIAL HYPERTENSION[SNOMED: 70403855] Diagnosis: HEADACHE[ICD9: 784.0] Diagnosis: Arm pain[ICD9: 729.5] [facility] CPT-4: 02683F 03/20/2012 Plan of Care Planned Activity Notes [...] call if symptoms do not improve. 11/25/2018 Patient Education: Patient Medication Summary Completed 11/25/2018 Patient Education: Hypertension Completed 11/25/2018 Care Plan: Urine Culture Pending 11/25/2018 Visit Plan: Diverticulitis - rx for antibiotic sent to pt' s pharmacy - pt advised to avoid seeds, nuts, popcorn, or any other food which has been proven to upset the pt's stomach. accuflora - 14billion unit - take while on antibiotics call if you are not feeling any better by sunday10/14/2018 Appointment: Tessa George WPtel: [facility] (15 min) Moderate 10/14/2018 Patient Education: Patient Medication Summary Completed 10/14/2018 Appointment: Tessa George WPtel: [address] [place], [place] [phone] (15 min) Moderate 09/24/2018 Visit Plan: Medicare [...] care surrogate. 09/02/2018 Appointment: Brooke Dominguez WPtel: [facility]9 [facility] [facility] - Annual Wellness Visit 09/02/2018 Patient [...] monitor symptoms. 05/21/2018 Appointment: Tessa George WPtel: [facility]8 [facility] (15 min) Moderate 05/21/2018 Patient Education: Patient Medication Summary Completed 05/21/2018 Visit Plan: tick bite - rx for doxycycline - and use benadryl cream on the tick bites to help decrease itching 03/04/2018 Appointment: Tessa George WPtel: [facility]5 [facility] (15 min) Moderate 03/04/2018 Patient Education: Patient [...] cessation strategies. 01/22/2018 Appointment: Tessa George WPtel: [facility]5 [facility] (15 min) Moderate 01/22/2018 Patient Education: Patient [...] not resolved. 10/22/2017 Appointment: Tessa George WPtel: [facility] (15 min) Moderate 10/22/2017 Patient Education: [...] prednisone taper. 08/15/2017 Appointment: [phone] (30 min) Complex 08/15/2017 Patient Education: Patient [...] at home. 06/19/2017 Appointment: Tessa George WPtel[facility] [address] [facility] (15 min) Moderate 06/19/2017 Patient Education: Patient [...] spasms of the abdomen 02/13/2017 Appointment: Tessa Georgel: [address] [facility] [place] (15 min) Moderate 02/13/2017 Patient Education: [...] improve. 02/05/2017 Appointment: Brooke Dominguez WPtel: [phone] [facility] [place] (15 min) Moderate 02/05/2017 Patient Education: [...] improve. 02/02/2017 Appointment: Brooke Dominguez WPtel: [address] [facility] [place] (15 min) Moderate 02/02/2017 Patient Education: [...] stopping. 12/12/2016 Appointment: Tessa George WPtel: [address] [facility] [place] (15 min) Moderate 12/12/2016 Patient Education: Patient [...] allergy spray. 06/21/2016 Appointment: Aviva Patton WPtel: [address] [place], [place] [address] (15 min) Moderate 06/21/2016 Patient Education: Patient [...] 2 weeks. 02/02/2015 Appointment: Tessa George WPtel: [facility] Surgical Procedure 02/02/2015 Patient Education: Patient Medication [...] another smoker. 11/26/2014 Appointment: Tessa George WPtel: [address] [place] [address] Follow up 11/26/2014 Patient Education: Patient Medication [...] at home. 09/15/2014 Appointment: Tessa George WPtel: [address] [place], [place] [phone] Follow up 09/15/2014 Patient Education: Patient Medication Summary Completed 09/15/2014 Visit Plan: Hip pain - stat xray right hip - antiinflammatories. Pt to use heat to hip, monitor symptoms - and pt to call if not improving, pt to be called with hip xray report. 08/13/2014 Appointment: Tessa George WPtel: [facility] Sick 08/13/2014 Patient Education: Patient Medication [...] 60mg daily. 07/23/2014 Appointment: Tessa George WPtel: [address] [place] [address] Follow up 07/23/2014 Patient Education: Patient Medication [...] shot today 06/29/2014 Appointment: Tessa George WPtel: [address] [place] [address] Follow up 06/29/2014 Patient Education: Patient Medication [...] on cymbalta. 01/28/2014 Appointment: Tessa George WPtel: [address] [place], [place] [phone] Follow up 01/28/2014 Patient Education: Patient Medication [...] Dr. Benites. 01/05/2014 Appointment: Tessa George WPtel: [facility] [place] Follow up 01/05/2014 Patient Education: Patient Medication Summary Completed 01/05/2014 Patient Education: Hypertension Completed 01/05/2014 Appointment: Tessa George WPtel: [facility] [place] Follow up 11/27/2013 Visit Plan: [...] for pain 11/17/2013 Appointment: Tessa George WPtel: [facility] Other 11/17/2013 Patient Education: Patient Medication Summary Completed 11/17/2013 Patient Education: Hypertension Completed 11/17/2013 Appointment: Tessa George WPtel: [address] [place], [place] [phone] Lab Draw 10/29/2013 Visit Plan: Polymyalgia Rheumatica [...] side effects. 08/27/2013 Appointment: Tessa George WPtel: [address] [place], [place] [phone] Follow up 08/27/2013 Patient Education: Patient Medication [...] not improve. 08/18/2013 Appointment: Aviva Patton WPtel: [phone] [place] Other 08/18/2013 Patient Education: Patient Medication Summary Completed 08/18/2013 Patient Education: Hypertension Completed 08/18/2013 Appointment: Aviva Patton WPtel: [address] [place], [place] [phone] [place] Injection 07/31/2013 Patient Education: Patient Medication Summary Completed 07/31/2013 Appointment: Aviva Patton WPtel: [phone] [place] Injection 07/23/2013 Patient Education: [...] of dysuria. 04/29/2013 Appointment: Tessa George WPtel: [address] [place], [place] [phone] Follow up 04/29/2013 Patient Education: Patient Medication Summary Completed 04/29/2013 Patient Education: Hypertension Completed 04/29/2013 Appointment: Tessa George WPtel: [address] [place], [place] [phone] Lab Draw 04/14/2013 Patient Education: Patient Medication Summary Completed 04/14/2013 Visit Plan: DYSURIA - WITH RECURRENT UTI - WILLGIVE ANTIBIOTIC AND REFER PT TO SEE DR. CHOW ABOUT RECTOCELE AND CYSTOCELE. 03/24/2013 Appointment: Tessa George WPtel: [address] [place], [place] [phone] Other 03/24/2013 Patient Education: Patient Medication Summary [...] silver nitrate. 02/06/2013 Appointment: Tessa George WPtel: [address] [facility] Follow up 02/06/2013 Patient Education: Patient Medication Summary Completed 02/06/2013 Patient Education: Hypertension Completed 02/06/2013 Visit Plan: Sinusitis - Pt has acute infection - pain in face, maxillary region, Pt informed to use decongestant, RX given to patient, sinus rinses also recommended. Call if symptoms do not show improvement. 11/05/2012 Appointment: Tessa George WPtel: [facility] Other 11/05/2012 Patient Education: Patient Medication [...] call clinic. 10/31/2012 Appointment: Tessa George WPtel: [address]1 [facility] Follow up 10/31/2012 Patient Education: Patient [...] Dr. Ordoñez 09/25/2012 Appointment: Tessa George WPtel: [address]3 [facility] Follow up 09/25/2012 Patient Education: Patient [...] at home. 09/03/2012 Appointment: Tessa George WPtel: [address] [facility] Follow up 09/03/2012 Patient Education: Patient [...] for review. 08/20/2012 Appointment: Aviva Patton [facility]Ptel[phone] Follow up 08/20/2012 Patient Education: Patient Medication [...] on miralax 07/16/2012 Appointment: Aviva Patton WPtel: [facility] [place] [phone] Sick 07/16/2012 Patient Education: Patient Medication Summary [...] kn benefiber 07/01/2012 Appointment: Tessa George WPtel: [facility] [place] [phone] Follow up 07/01/2012 Patient Education: Patient Medication [...] in stopping. 05/08/2012 Appointment: Tessa George WPtel: [facility] Well [facility] 05/08/2012 Patient Education: Patient [...] acute concerns. 04/19/2012 Appointment: Aviva Patton WPtel: [facility] Other 04/19/2012 Patient Education: Patient Medication Summary [...] the coreg. 04/15/2012 Appointment: Tessa George WPtel: [facility] Follow up 04/15/2012 Patient Education: Patient Medication Summary Completed 04/15/2012 Patient Education: High Blood Pressure: Essential Hypertension Completed 2011 Appointment: Tessa George WPtel: [facility] [place] Lab Draw 04/08/2012 Visit Plan: UTI [...] medication. 04/04/2012 Appointment: Tessa George WPtel: 1015 [facility] Other 04/04/2012 Patient Education: Patient Medication Summary [...] bid 04/01/2012 Appointment: Tessa George WPtel: [address]5 [facility] Other 04/01/2012 Patient Education: Patient Medication Summary Completed 04/01/2012 Patient Education: High Blood Pressure: Essential Hypertension Completed 2011 Visit Plan: Pericardial rco-NIZ-Ghjyoffh-arm pain-history of shingles-Dr. George in to evaluate [...] AND EVALUATION OF THE ACUTE ILLNESS. Pericardial fwc-FIH-Yvhgexbl-arm pain-history of shingles- Dr. George in to evaluate patient-plan to admit for further work up and close monitoring. Plan to get labs STAT including a cardiac panel. A stat echo has also been ordered as well with cardiology consult. 03/20/2012 Appointment: Aviva Patton WPtel: [facility] [place] [place] [address] Other 03/20/2012 Patient Education: Patient Medication Summary Completed 03/20/2012 Patient Education: High Blood Pressure: Essential Hypertension Completed 2011 Appointment: Aviva Patton WPtel: 101 [facility] [place] [address] Other 08/30/2011 Instructions Comment . Hypertension - [...] Flagyl if symptoms are not resolved. . Hypertension - well controlled - continue [...] any better by sunday . Hypertension - not quite optimally controlled [...] tobacco intake with goal of stopping. . Pericardial fop-YRR-Xawkpyyl-arm pain-history of shingles -Dr. George in to evaluate patient-plan to admit for further work up and close monitoring. Plan to get labs STAT including a cardiac panel. A stat echo has also been ordered as well with cardiology consult. . . UTI - pt with positive urinalysis [...] in the nasal steroid allergy spray. . ADMIT FROM CLINIC TO HOSPITAL - PT IS ACUTELY ILL, REQUIRES HOSPITALIZATION. THE PATIENT HAS BEEN EVALUATED IN CLINIC AND THIS STANDS THE HOSPITAL HISTORY AND PHYSICAL EXAMINATION. THE PATIENT HAS BEEN SENT TO THE HOSPITAL WITH WRITTEN ORDERS FOR TREATMENT AND EVALUATION OF THE ACUTE ILLNESS. Pericardial wkt-TPI-Msylmugl-arm pain-history of shingles-Dr. George in to evaluate [...] back from 1ppd to 1/2 ppd. . Polymyalgia Rheumatica - rx for steroids [...] DOPA paperwork for health care surrogate. . STOP THE DOXYCYCLINE, START ON CIPROFLOXACIN [...] Tobaccoism - pt not interested in stopping. increase cymbalta to 60mg daily (ok to [...]
--- OUTSIDE RECORDS SUMMARY | 2019-01-26 14:52 | XMS REPORT | CCD ---
Author Author Aviva Patton Organization Tessa George MD, [facility] Address [address] [place] [address] Phone Care Team Providers Care Coach Wirer Name Role Phone Tessa George PP Unavailable CCM Unavailable Summary Purpose Interface Exchange Insurance Providers Payer name Policy type / Coverage type Covered alliance party ID Effective Begin Date Effective End Date WPS Medicare Part B Medicare Part B [id number] Unknown FOR LIFE WPS Medicare Part B [id number] Unknown Family history Mother Diagnosis Age At Onset Myocardial infarction Unknown Father Diagnosis Age At Onset Cancer Unknown bladder cancer Unknown Myocardial infarction Unknown Brother Diagnosis Age At Onset Myocardial infarction Unknown Social History Social History Element Codes Description Effective Dates Marital status Unknown 02/02/[address]: 24419244 Current every day smoker 02/02/2016 Number of children Unknown 2 sons living and well 03/20/2012 Living arrangements Unknown House 03/20/2012 Employment Unknown Retired 03/20/2012 Number of years using tobacco Unknown 40 03/20/2012 Number of cigarettes/day Unknown 10 ( Half a pack) 03/20/[address]: 290338069 Never drinks alcohol 03/20/2012 Allergies, Adverse Reactions, Alerts Substance Reaction Codes Entered Date Inactivated Date Status * NO KNOWN FOOD ALLERGIES Unknown 07/01/2012 No Inactive Date Active cephalexin RxNorm: 2231 04/19/2012 No Inactive Date Active SULFA(SULFONAMIDE ANTIBIOTICS) Unknown 04/19/2012 No Inactive Date Active METRONIDAZOLE Unknown 01/22/2018 No Inactive Date Active Past Medical History Illness Codes Condition Status Onset Date Resolved Date Diverticulitis of large intestine without perforation or abscess without bleeding ICD-9: 562.11 ICD-10: K57.32 Active 10/14/2018 Unknown Encounter for general adult medical examination with abnormal findings ICD-9: V70.0 ICD-10: Z00.01 Active 08/22/2017 Unknown Encounter for immunization ICD-9: V05.9 ICD-10: Z23 Active 06/18/2018 Unknown Essential (primary) hypertension ICD-9: 401.9 ICD-10: I10 Active 07/23/2014 Unknown 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 ICD-10: K59.1 [...] ICD-9: 724.2 ICD-10: M54.5 Active 02/02/2017 Unknown Dysuria ICD-9: 788.1 ICD-10: R30.0 Active 12/12/2016 Unknown Encounter for immunization ICD-9: V04.81 ICD-10: [...] Problems Condition Codes Effective Dates Condition Status Diverticulitis of large intestine without perforation or abscess without bleeding ICD-9: 562.11 ICD-10: K57.32 10/14/2018 Active Encounter for general adult medical examination with abnormal findings ICD-9: V70.0 ICD-10: Z00.01 08/22/2017 Active Encounter for immunization ICD-9: V05.9 ICD-10: Z23 06/18/2018 Active Essential (primary) hypertension ICD-9: 401.9 ICD-10: I10 07/23/2014 Active 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 ICD-10: K59.1 06/19/2017 Active Tobacco use ICD-9: 305.1 ICD-10: Z72.0 11/26/2014 Active Insect bite (nonvenomous) of abdominal wall, initial encounter ICD-9: 911.4 ICD-10: S30.861A 03/04/2018 Active Rash and other nonspecific skin eruption ICD-9: 782.1 ICD-10: R21 08/15/2017 Active Epigastric pain ICD-9 : 789.06 ICD-10: R10.13 02/13/2017 Active Low back pain ICD-9: 724.2 ICD-10: M54.5 02/02/2017 Active Dysuria ICD-9: 788.1 ICD-10: R30.0 12/12/2016 Active Encounter for immunization ICD-9: V04.81 ICD-10: [...] Start Date Stop Date Status Fill Instructions furosemide 20 mg tablet RxNorm: 390631 TAKE 1 TABLET DAILY No Stop Date Active Augmentin 875 mg-125 mg tablet RxNorm: 665310 1 Tablet(s) PO BID 10/14/2018 10/23/2018 Inactive doxycycline hyclate 100 mg tablet RxNorm: 753681 1 Tablet(s) PO BID 03/04/2018 03/10/2018 Inactive Pepcid AC 20 mg tablet RxNorm: 366914 1 Tablet(s) PO BID 201704/16/2019 Active pt requested a 90 day supply please Pepcid AC 20 mg tablet RxNorm: 199136 1 Tablet(s) PO BID 201701/21/2018 Inactive Pepcid AC 20 mg tablet RxNorm: 537230 1 Tablet(s) PO BID 201701/17/2018 Inactive Pepcid AC 20 mg tablet RxNorm: 593613 1 Tablet(s) PO BID 201712/18/2017 Inactive Flagyl 500 mg tablet RxNorm: 403288 1 Tablet(s) PO TID 201712/28/2017 Inactive Cymbalta 60 mg capsule,delayed release RxNorm: 814259 1 CAPSULE(S) PO DAILY 1 CAPSULE(S) PO DAILY 12/14/2017 No Stop Date Active Toprol XL 25 mg tablet,extended release RxNorm: 272280 1 TABLET(S) PO BID 12/14/2017 No Stop Date Active furosemide 20 mg tablet RxNorm: 877872 TAKE 1 TABLET DAILY 11/06/2018 Inactive Kenalog 40 mg/mL suspension for injection RxNorm: 4069839 1.5 Milliliter(s) Inj 08/15/2017 08/15/2017 Inactive triamcinolone acetonide 0.025 % topical cream RxNorm: 5500124 1 Application TOP BID as needed 08/15/2017 08/19/2017 Inactive prednisone 20 mg tablet RxNorm: 244004 2 Tablet(s) PO daily 10/201608/19/2017 Inactive Flagyl 500 mg tablet RxNorm: 799505 1 Tablet(s) PO TID 201608/10/2017 Inactive Flagyl 500 mg tablet RxNorm: 046514 1 Tablet(s) PO TID 201607/31/2017 Inactive Questran 4 gram powder for susp in a packet RxNorm: 292571 1/2 packet PO QID 06/19/2017 01/14/2018 Inactive Levsin/SL 0.125 mg sublingual tablet RxNorm: 9735380 1 Tablet(s) SL QID as needed abdominal pain or abdominal spasms 02/13/2017 08/19/2017 Inactive cyclobenzaprine 5 mg tablet RxNorm: 395847 1 Tablet(s) PO TID as needed 02/08/2017 02/12/2017 Inactive cyclobenzaprine 5 mg tablet RxNorm: 151652 1 Tablet(s) PO TID as needed 02/05/2017 02/07/2017 Inactive Cipro 250 mg tablet RxNorm: 730310 1 Tablet(s) PO BID 201602/11/2017 Inactive Cymbalta 60 mg capsule,delayed release RxNorm: 148516 1 Capsule(s) PO daily 1 CAPSULE(S) PO DAILY 12/18/2016 12/12/2017 Inactive Toprol XL 25 mg tablet,extended release RxNorm: 600205 1 Tablet(s) PO BID 12/18/2016 12/12/2017 Inactive [SAVINGS FOR NON-COVERED DRUGS -- BIN:[id number], PCN: ASPROD1, Group: XXXXX, ID# [id number], Questions: . THIS IS NOT INSURANCE.] ciprofloxacin 500 mg tablet RxNorm: 005259 1 Tablet(s) PO BID 12/12/2016 12/17/2016 Inactive furosemide 20 mg tablet RxNorm: 782086 TAKE 1 TABLET DAILY 12/201611/11/2017 Inactive levofloxacin 500 mg tablet RxNorm: 493735 1 Tablet(s) PO daily 06/21/2016 06/25/2016 Inactive Kenalog 40 mg/mL suspension for injection RxNorm: 5763956 Milliliter(s) Inj 06/21/2016 06/21/2016 Inactive hydrocodone 5 mg-acetaminophen 325 mg tablet RxNorm: 327819 1-2 Tablet(s) PO Q4- 6H as needed 11/03/2015 02/01/2016 Inactive Cymbalta 60 mg capsule,delayed release RxNorm: 593636 1 Capsule(s) PO daily 1 CAPSULE(S) PO DAILY 11/03/2015 12/17/2016 Inactive furosemide 20 mg tablet RxNorm: 576514 Tablet(s) TAKE 1 TABLET ONCE DAILY 11/03/2015 11/16/2016 Inactive Toprol XL 25 mg tablet,extended release RxNorm: 288568 2 Tablet(s) PO daily 11/03/2015 12/17/2016 Inactive [SAVINGS FOR NON-COVERED DRUGS -- BIN:300867, PCN: ASPROD1, Group: XXXXX, ID# [id number], Questions: . THIS IS NOT INSURANCE.] Cymbalta 60 mg capsule,delayed release RxNorm: 407609 1 Capsule(s) PO daily 1 CAPSULE(S) PO DAILY 05/31/2015 11/02/2015 Inactive Toprol XL 25 mg tablet,extended release RxNorm: 531297 2 Tablet(s) PO daily 01/25/2015 11/02/2015 Inactive [SAVINGS FOR NON-COVERED DRUGS -- BIN:007105, PCN: ASPROD1, Group: XXXXX, ID# [id number], Questions: . THIS IS NOT INSURANCE.] Voltaren 1 % topical gel RxNorm: 674156 2 Gram(s) TOP QID to hands 01/25/2015 05/24/2015 Inactive [SAVINGS FOR NON-COVERED DRUGS -- BIN:418781, PCN: ASPROD1, Group : XXXXX, ID# [id number], Questions: . THIS IS NOT INSURANCE.] furosemide 20 mg tablet RxNorm: 834351 TAKE 1 TABLET ONCE DAILY 12/17/2014 11/02/2015 Inactive Kenalog 40 mg/mL suspension for injection RxNorm: 4205727 2 Milliliter(s) Inj UD 09/17/2014 09/17/2014 Inactive [SAVINGS FOR UNINSURED PATIENTS -- BIN:368184, PCN: ASPROD1, Group: AME08, ID# [id number], Process claim through MedImpact, for questions: . THIS IS NOT INSURANCE.] Levaquin 500 mg tablet RxNorm: 775105 1 Tablet(s) PO daily 08/16/2014 Inactive [SAVINGS FOR UNINSURED PATIENTS -- BIN:325800, PCN: ASPROD1, Group: AME08 , ID# [id number], Process claim through MedImpact, for questions: . THIS IS NOT INSURANCE.] Kenalog 40 mg/mL suspension for injection RxNorm: 9394159 Milliliter(s) Inj 08/03/2014 08/03/2014 Inactive [SAVINGS FOR UNINSURED PATIENTS -- BIN:624388, PCN: ASPROD1, Group: AME08, ID# [id number], Process claim through MedImpact, for questions: . THIS IS NOT INSURANCE.] azithromycin 500 mg tablet RxNorm: 943255 1 Tablet(s) PO UD 08/02/2014 Inactive dispense a zpack azithromycin 500 mg tablet RxNorm: 957455 1 Tablet(s) PO daily 08/03/2014 08/07/2014 Inactive 1 tab daily Cymbalta 60 mg capsule,delayed release RxNorm: 926609 1 Capsule(s) PO daily 07/23/2014 05/31/2015 Inactive [SAVINGS FOR UNINSURED PATIENTS -- BIN:404318, PCN: ASPROD1, Group: [id number], ID# [id number], Process claim through MedImpact, for questions: . THIS IS NOT INSURANCE.] Kenalog 40 mg/mL suspension for injection RxNorm: 6057920 1 1/2 Milliliter(s) Inj 04/27/2014 04/27/2014 Inactive [SAVINGS FOR UNINSURED PATIENTS -- BIN:184735, PCN: ASPROD1, Group: AME08, ID# [id number], Process claim through MedImpact, for questions: . THIS IS NOT INSURANCE.] meclizine 25 mg tablet RxNorm: 332589 1 Tablet(s) PO Q6 PRN 05/26/2014 Inactive [SAVINGS FOR UNINSURED PATIENTS -- BIN:145975, PCN: ASPROD1, Group: [id number] , ID# [id number], Process claim through MedImpact, for questions: . THIS IS NOT INSURANCE.] Levaquin 500 mg tablet RxNorm: 082406 1 Tablet(s) PO daily 05/03/2014 Inactive [SAVINGS FOR UNINSURED PATIENTS -- BIN:485198, PCN: ASPROD1, Group: AME08 , ID# [id number], Process claim through MedImpact, for questions: . THIS IS NOT INSURANCE.] Cymbalta 30 mg capsule,delayed release RxNorm: 596979 1 Capsule(s) PO daily 03/25/2014 07/22/2014 Inactive Cymbalta 30 mg capsule,delayed release RxNorm: 653743 1 Capsule(s) PO daily 01/28/2014 03/24/2014 Inactive furosemide 20 mg tablet RxNorm: 376550 1 Tablet(s) PO daily TAKE 1 TABLET BY MOUTH ONCE DAILY. 12/22/2013 12/16/2014 Inactive Toprol XL 25 mg tablet,extended release RxNorm: 924950 1 Tablet(s) PO daily 12/22/2013 01/24/2015 Inactive furosemide 20 mg tablet RxNorm: 224401 Tablet(s) PO TAKE 1 TABLET BY MOUTH ONCE DAILY. 12/04/2013 12/21/2013 Inactive prednisone 10 mg tablet RxNorm: 263903 Tablet(s) PO 10/28/2013 11/16/2013 Inactive 60mg d x 4 [id number] daily x 4 [id number] daily x 4 [id number] daily x 8 days5 mg daily x 8 day2.5 mg daily x 8 days2.5 mg qod x 8 doses then stop Toprol XL 25 mg tablet,extended release RxNorm: 421257 1 Tablet(s) PO daily 08/27/2013 12/21/2013 Inactive Macrobid 100 mg capsule RxNorm: 7571996 1 Capsule(s) PO BID 01/201308/24/2013 Inactive Influenza Virus Vaccine 0.5 mL RxNorm: IM 07/23/2013 07/23/2013 Inactive levofloxacin 500 mg tablet RxNorm: 281951 1 Tablet(s) PO daily 04/29/2013 05/03/2013 Inactive amitriptyline 10 mg tablet RxNorm: 717992 1 Tablet(s) PO qhs prn 1/2 to one tablet at bedtime if needed for bladder spasms 04/29/2013 08/20/2013 Inactive Cipro 250 mg tablet RxNorm: 785408 1 Tablet(s) PO BID 201204/23/2013 Inactive Levaquin 500 mg tablet RxNorm: 251164 1 Tablet(s) PO daily 07/201303/30/2013 Inactive Levaquin 500 mg tablet RxNorm: 879280 1 Tablet(s) PO daily 07/201303/23/2013 Inactive furosemide 20 mg tablet RxNorm: 111158 Tablet(s) PO TAKE 1 TABLET BY MOUTH ONCE DAILY. 03/13/2013 12/03/2013 Inactive furosemide 20 mg tablet RxNorm: 919571 Tablet(s) PO TAKE 1 TABLET BY MOUTH ONCE DAILY. 12/09/2012 03/12/2013 Inactive azithromycin 500 mg tablet RxNorm: 462682 1 Tablet(s) PO daily 11/05/2012 11/14/2012 Inactive rohan prieto Kenalog 40 mg/mL Susp for Injection RxNorm: 6432004 2 Milliliter(s) Inj 11/05/2012 11/05/2012 Inactive Cipro 500 mg tablet RxNorm: 176256 1 Tablet(s) PO BID 201102/05/2013 Inactive furosemide 20 mg tablet RxNorm: 229346 Tablet(s) PO 09/09/2012 12/08/2012 Inactive TAKE 1 TABLET BY MOUTH ONCE DAILY. Toprol XL 25 mg tablet,extended release RxNorm: 035100 1 Tablet(s) PO daily this will replace the coreg 08/26/20122012 Inactive Cipro 500 mg tablet RxNorm: 458634 1 Tablet(s) PO BID 201108/26/2012 Inactive Miralax 17 gram Oral Powder Packet RxNorm: 223277 1 PO daily 07/16/2012 Inactive Miralax 17 gram Oral Powder Packet RxNorm: 681161 1 PO daily 08/10/2013 Inactive furosemide 20 mg tablet RxNorm: 255346 Tablet(s) PO 06/10/2012 09/08/2012 Inactive TAKE 1 TABLET BY MOUTH ONCE DAILY. naproxen 500 mg tablet RxNorm: 493600 1 Tablet(s) PO 201105/08/2012 Inactive Cipro 250 mg tablet RxNorm: 162803 1 Tablet(s) PO BID Take 2 tabs BID today then 1 tab BID for the next 5 days 04/19/2012 04/25/2012 Inactive ketorolac 10 mg Tab RxNorm: 153130 1 Tablet(s) PO TID 201104/17/2012 Inactive ketorolac 60 mg/2 mL IM RxNorm: 937470 Milliliter(s) IM 201104/04/2012 Inactive ketorolac 10 mg Tab RxNorm: 422634 1 Tablet(s) PO TID 201104/10/2012 Inactive ciprofloxacin 500 mg Tab RxNorm: 131746 1 Tablet(s) PO BID 04/13/2012 Inactive ciprofloxacin 500 mg Tab RxNorm: 957180 1 Tablet(s) PO BID 04/03/2012 Inactive Coreg 3.125 mg Tab RxNorm: 008102 1 Tablet(s) PO BID 201108/25/2012 Inactive furosemide 20 mg tablet RxNorm: 659441 1 Tablet(s) PO daily 09/09/2011 Inactive Toprol XL 25 mg tablet,extended release RxNorm: 985515 1 Tablet(s) PO daily No Start Date 08/25/2012 Inactive Caltrate 600 + D oral RxNorm: 242950 oral No Start Date 11/02/2015 Inactive hydroxychloroquine 200 mg tablet RxNorm: 091620 1 Tablet(s) PO BID from dr duncan No Start Date 01/27/2014 Inactive Cipro 500 mg tablet RxNorm: 075506 1/2 Tablet(s) PO daily No Start Date 08/18/2013 Inactive Centrum Silver Ultra Women's Tab RxNorm: 1 Tablet(s) PO daily No Start Date 02/01/2016 Inactive Influenza Virus Vaccine 0.5 mL RxNorm: IM No Start Date 02/02/2016 Inactive hydrocodone 5 mg-acetaminophen 325 mg tablet RxNorm: 966083 1-2 Tablet(s) PO Q4- 6H as needed No Start Date 11/02/2015 Inactive prednisone 10 mg tablet RxNorm: 125937 Tablet(s) PO 60mg daily x 3 days, 40mg daily x 3 days, 20mg daily x 3 days, 10mg daily x 3 days, 5mg daily x 3 days, 5mg QOD x 1 week No Start Date 10/27/2013 Inactive Medication Administered Medication Codes Instructions Start Date Status Kenalog 40 mg/mL suspension for injection RxNorm: 1002640 1.5Milliliter 08/15/2017 No longer Active Kenalog 40 mg/mL suspension for injection RxNorm: 2283707 Milliliter 06/21/2016 No longer Active Kenalog 40 mg/mL suspension for injection RxNorm: 8926741 2MilliliterUD 09/17/2014 No longer Active Kenalog 40 mg/mL suspension for injection RxNorm: 2760595 Milliliter 08/03/2014 No longer Active Kenalog 40 mg/mL suspension for injection RxNorm: 6287583 1 /2Milliliter 04/27/2014 No longer Active Influenza Virus Vaccine 0.5 mL RxNorm: 07/23/2013 No longer Active Kenalog 40 mg/mL Susp for Injection RxNorm: 0926860 2Milliliter 11/05/2012 No longer Active ketorolac 60 mg/2 mL IM RxNorm: 577297 Milliliter 04/04/2012 No longer Active Immunizations Vaccine [...] 07/01/2012 completed Assessments Condition Codes Effective Dates Diverticulitis of large intestine without perforation or abscess without bleeding ICD-10: K57.32 ICD-9: 562.11 10/14/2018 Encounter for general adult medical examination with abnormal findings ICD-10: Z00.01 ICD-9: V70.0 09/02/2018 Encounter for immunization ICD-10: Z23 ICD-9: V05.9 06/18/2018 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 ICD-9: 564.5 05/21/2018 Tobacco use ICD-10: Z72.0 ICD-9: 305.1 05/21/2018 Essential (primary) hypertension ICD-10: I10 ICD-9: 401.9 05/21/2018 Insect bite (nonvenomous) of abdominal wall, initial encounter ICD-10: S30.861A ICD-9: 911.4 03/04/2018 Rash and other nonspecific skin eruption ICD-10: R21 ICD-9: 782.1 08/15/2017 Epigastric pain ICD-10: R10.13 ICD-9: 789.06 06/19/2017 Low back pain ICD-10: M54.5 ICD-9: 724.2 02/05/2017 Dysuria ICD-10: R30.0 ICD-9: 788.1 02/02/2017 Encounter for immunization ICD-10: Z23 ICD-9: V04.81 [...] Visit Reason For Visit Effective Dates Notes abdominal pain 10/14/2018 Annual Medicare Wellness Exam [...] hTSH II 2.26 uIU/mL 07/10/2017 Comp Metabolic Dkh302 NA 140 mEq/L 07/10/2017 Comp Metabolic Odz643 K 4.2 mEq/L 07/10/2017 Comp Metabolic Tlt753 CL 106 mEq/L 07/10/2017 Comp Metabolic Hwt069 CO2 26.0 mEq/L 07/10/2017 Comp Metabolic Adg022 ANION GAP 12 07/10/2017 Comp Metabolic Ggb526 GLUCOSE 89 mg/dL 07/10/2017 Comp Metabolic Epw803 Creat 0.6 mg/dL 07/10/2017 Comp Metabolic Otx044 eGFR 105 ml/min/1.73m2 07/10/2017 Comp Metabolic Amt188 BUN 9 mg/dL 07/10/2017 Comp Metabolic Els963 B/C Ratio 15.0 Ratio 07/10/2017 Comp Metabolic Ygy997 CALCIUM 9.4 mg/dL 07/10/2017 Comp Metabolic Cns613 ALK PHOS 90 U/L 07/10/2017 Comp Metabolic Ptm032 AST(SGOT) 15 U/L 07/10/2017 Comp Metabolic Ena477 ALT(SGPT) 14 U/L 07/10/2017 Comp Metabolic Rzu428 BILI T 0.5 mg/dL 07/10/2017 Comp Metabolic Ipy124 ALBUMIN 4.0 g/dL 07/10/2017 Comp Metabolic Fdx089 TPRO 6.2 g/dL 07/10/2017 Comp Metabolic Moh979 GLOB 2.2 g/dL 07/10/2017 Comp Metabolic Yko315 A/G Ratio 1.8 Ratio 07/10/2017 Comp Metabolic Jmu597 Osmo 278 mOsmo 07/10/2017 Cbc With Differential [...] 32.3 pg 07/10/2017 Cbc With Differential Ord2 [place]% 6.2 % 07/10/2017 Cbc With Differential Ord2 [...] 2.19 K/ul 07/10/2017 Cbc With Differential Ord2 [place] ABS# 0.5 K/ul 07/10/2017 Cbc With Differential Ord2 Eos ABS# 0.1 K/ul 07/10/2017 Cbc With Differential Ord2 Baso ABS# 0.0 K/ul 07/10/2017 Culture Urine [id number] URINE CULTURE SEE NOTES 02/05/2017 Urine Culture Ucult Complete >100,000 col/ml aerobic growth sent to ref lab 02/03/2017 Culture Urine [id number] URINE CULTURE SEE NOTES 12/18/2016 Culture Urine [id number] Continued Results 12/18/2016 Urine Culture Ucult Complete [...] 95.7 fl 02/03/2016 Cbc With Differential Ord2 [place]% 6.6 % 02/03/2016 Cbc With Differential Ord2 [...] 2.38 K/ul 02/03/2016 Cbc With Differential Ord2 [place] ABS# 0.5 K/ul 02/03/2016 Cbc With Differential Ord2 Eos ABS# 0.2 K/ul 02/03/2016 Cbc With Differential Ord2 Baso ABS# 0.0 K/ul 02/03/2016 Cbc With Differential Ord2 New Analyzer Notice Please note new ref ranges starting 10-27-2015 due to implemntation of new five part differential hematolgy analyzer. 02/03/2016 Comp Metabolic Fxp026 NA 136 mEq/L 02/03/2016 Comp Metabolic Mzu168 K 4.0 mEq/L 02/03/2016 Comp Metabolic Toy916 CL 102 mEq/L 02/03/2016 Comp Metabolic Gtl218 CO2 28.0 mEq/L 02/03/2016 Comp Metabolic Foi794 ANION GAP 10 02/03/2016 Comp Metabolic Lpq482 GLUCOSE 85 mg/dL 02/03/2016 Comp Metabolic Axn790 Creat 0.7 mg/dL 02/03/2016 Comp Metabolic Tfx947 eGFR 88 ml/min/1.73m2 02/03/2016 Comp Metabolic Dmb593 BUN 15 mg/dL 02/03/2016 Comp Metabolic Cjb993 B/C Ratio 21.4 Ratio 02/03/2016 Comp Metabolic Azc505 CALCIUM 9.2 mg/dL 02/03/2016 Comp Metabolic Nex091 ALK PHOS 81 U/L 02/03/2016 Comp Metabolic Phx155 AST(SGOT) 19 U/L 02/03/2016 Comp Metabolic Kcv084 ALT(SGPT) 22 U/L 02/03/2016 Comp Metabolic Xzp508 BILI T 0.5 mg/dL 02/03/2016 Comp Metabolic Mnu684 ALBUMIN 4.1 g/dL 02/03/2016 Comp Metabolic Fcu133 TPRO 6.4 g/dL 02/03/2016 Comp Metabolic Ebr337 GLOB 2.3 g/dL 02/03/2016 Comp Metabolic Cvf295 A/G Ratio 1.8 Ratio 02/03/2016 Comp Metabolic Cgd368 Osmo 272 mOsmo 02/03/2016 Tsh Ord6 hTSH II 1.61 uIU/mL 02/03/2016 CRP 0900960 CRP 1.8 MG/DL 08/21/2013 GFR CALC 3532750 GFR AA >60 ML/MIN 08/21/2013 GFR CALC 9397867 GFR NON-AA >60 ML/MIN 08/21/2013 CBC 6782682 WBC 9.0 10e9/L 08/21/2013 CBC 9888051 RBC 4.68 10e12/L 08/21/2013 CBC 3132000 HGB 15.0 g/dL 08/21/2013 CBC 5444741 HCT DET 43.8 % 08/21/2013 CBC 9244122 MCV 93.6 fL 08/21/2013 CBC 6665356 MCH 32.1 pg 08/21/2013 CBC 6254327 MCHC 34.2 g/dL 08/21/2013 CBC 2852786 PLT 267 10e9/L 08/21/2013 CBC 5344411 MPV 9.0 fL 08/21/2013 CBC 6698108 MARGE % 67.8 % 08/21/2013 CBC 3770380 LY % 24.8 % 08/21/2013 CBC 1062521 MON % 6.2 % 08/21/2013 CBC 3934211 EOS % 1.0 % 08/21/2013 CBC 8525411 BASO % 0.2 % 08/21/2013 CBC 3912591 RDW 13.1 % 08/21/2013 CBC 3491230 ABS MARGE 6.10 10e9/L 08/21/2013 CBC 2451695 ABS LYMPH 2.23 10e9/L 08/21/2013 CBC 8578051 ABS MONO 0.56 10e9/L 08/21/2013 CBC 8473039 ABS EOS 0.09 10e9/L 08/21/2013 CBC 8847125 ABS BASO 0.02 10e9/L 08/21/2013 CBC 7865089 RDW-SD 43.9 fL 08/21/2013 TSH 2129253 TSH 1.898 uIU/ML 08/21/2013 MAGNESIUM 7294943 MAGNESIUM 1.7 MEQ/L 08/21/2013 CHEM 14 8438045 AST 16 U/L 08/21/2013 CHEM 14 7341113 ALT 15 IU/L 08/21/2013 CHEM 14 7943989 BUN 14 MG/DL 08/21/2013 CHEM 14 0081370 ALBUMIN 4.4 GM/DL 08/21/2013 CHEM 14 2846029 CHLORIDE 103 MMOL/L 08/21/2013 CHEM 14 4623081 BILI TOT 0.6 MG/DL 08/21/2013 CHEM 14 2220759 ALK PHOS 80 U/L 08/21/2013 CHEM 14 0183190 SODIUM 138 MMOL/L 08/21/2013 CHEM 14 6971020 CREATININE 0.76 MG/DL 08/21/2013 CHEM 14 3957125 CALCIUM 10.2 MG/DL 08/21/2013 CHEM 14 1428317 POTASSIUM 4.0 MMOL/L 08/21/2013 CHEM 14 3850409 PROT TOT 7.0 GM/DL 08/21/2013 CHEM 14 6711652 GLUCOSE 95 MG/DL 08/21/2013 CHEM 14 1894210 BICARB 29 MMOL/L 08/21/2013 CHEM 14 9615310 ANION GAP 6 MEQ/L 08/21/2013 URINALYSIS NONAUTO W/O SCOPE 30606 Specific [place] 1.020 DateTime(Free Text in Aprima) URINALYSIS NONAUTO W/O SCOPE 23154 PH 5.0 DateTime(Free Text in Aprima) URINALYSIS NONAUTO W/O SCOPE 41302 GLUCOSE Negative DateTime(Free Text in Aprima) URINALYSIS NONAUTO W/O SCOPE 23263 Protein Negative DateTime(Free Text in Aprima) URINALYSIS NONAUTO W/O SCOPE 28533 Blood Mod. Blood DateTime( Free Text in Aprima) URINALYSIS NONAUTO W/O SCOPE 70097 Bilirubin Negative DateTime(Free Text in Aprima) URINALYSIS NONAUTO W/O SCOPE 53202 Ketones Negative DateTime(Free Text in Aprima) URINALYSIS NONAUTO W/O SCOPE 23612 Urobilinogen Negative DateTime(Free Text in Aprima) URINALYSIS NONAUTO W/O SCOPE 61978 Nitrite Negative DateTime(Free Text in Aprima) URINALYSIS NONAUTO W/O SCOPE 76046 Leukocytes Negative DateTime(Free Text in Aprima) URINALYSIS NONAUTO W/O SCOPE 76680 Specific [place] 1.010 DateTime(Free Text in Aprima) URINALYSIS NONAUTO W/O SCOPE 53900 PH 6.0 DateTime(Free Text in Aprima) URINALYSIS NONAUTO W/O SCOPE 15044 GLUCOSE neg DateTime( Free Text in Aprima) URINALYSIS NONAUTO W/O SCOPE 23925 Protein neg DateTime( Free Text in Aprima) URINALYSIS NONAUTO W/O SCOPE 86521 Blood 1+ DateTime(Free Text in Aprima) URINALYSIS NONAUTO W/O SCOPE 53977 Bilirubin neg DateTime(Free Text in Aprima) URINALYSIS NONAUTO W/O SCOPE 34692 Ketones neg DateTime( Free Text in Aprima) URINALYSIS NONAUTO W/O SCOPE 43615 Urobilinogen neg DateTime(Free Text in Aprima) URINALYSIS NONAUTO W/O SCOPE 08162 Nitrite neg DateTime( Free Text in Aprima) URINALYSIS NONAUTO W/O SCOPE 46933 Leukocytes 1+ DateTime(Free Text in Aprima) UA 81918 Specific [place] 1.005 DateTime(Free Text in Aprima ) UA 96827 PH 5 DateTime(Free Text in Aprima) UA 30845 GLUCOSE neg DateTime(Free Text in Aprima) UA 67968 Protein neg DateTime(Free Text in Aprima) UA 63906 Blood 1+ DateTime(Free Text in Aprima) UA 44177 Bilirubin neg DateTime(Free Text in Aprima) UA 37894 Ketones neg DateTime(Free Text in Aprima) UA 60733 Urobilinogen neg DateTime(Free Text in Aprima) UA 31312 Nitrite neg DateTime(Free Text in Aprima) UA 48853 Leukocytes 1+ DateTime(Free Text in Aprima) UA 92822 Specific [place] 1.005 DateTime(Free Text in Aprima ) UA 24847 PH 6.0 DateTime(Free Text in Aprima) UA 41656 GLUCOSE neg DateTime(Free Text in Aprima) UA 34563 Protein neg DateTime(Free Text in Aprima) UA 15519 Blood 1+ DateTime(Free Text in Aprima) UA 33968 Bilirubin neg DateTime(Free Text in Aprima) UA 25229 Ketones neg DateTime(Free Text in Aprima) UA 72593 Urobilinogen neg DateTime(Free Text in Aprima) UA 70886 Nitrite neg DateTime(Free Text in Aprima) UA 37923 Leukocytes neg DateTime(Free Text in Apr) Review of Systems System Result Effective Dates Constitutional No anorexia 10/14/2018 Constitutional No night [...] affect 08/22/2017 None Full Exam - General [facility] Psychiatric appearance Overall: well-groomed, good eye contact [...] retractions 04/29/2013 None Full Exam - General 1995 Respiratory respiratory effort/rhythm Overall: normal rate 04/29/2013 [...] clear 07/01/2012 None Full Exam - General 1995 Ears/Nose/Throat [...] inner upper arm. 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 3-[address]: 209278431 CPT-4: G0436 12/12/2016 URINALYSIS NONAUTO W/O SCOPE CPT-4: 45228 12/12/2016 ADMIN INFLUENZA VIRUS VAC CPT-4: G0008 07/19/2016 FLU VACC 4 DONTE 3 YRS PLUS IM Formatting Model/CDA Sections, Assigned to/Abigail Mancia SNOMED CT: 70945854 CPT-4: 03868Owijxgk 07/19/2016 TRIAMCINOLONE ACET INJ NOS CPT-4: J3301 06/21/2016 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 3-[address]: 954266678 CPT-4: G0436 02/02/2016 ADMIN INFLUENZA VIRUS VAC CPT-4: G0008 08/25/2015 FLU VACC PRSV FREE INC ANTIG Formatting Model/CDA Sections, Assigned to/Abigail Mancia CPT-4: 06510Wxkldtj 08/25/2015 BIOPSY SKIN LESION CPT -4: 91964 02/02/2015 TRIAMCINOLONE ACET INJ NOS CPT-4: J3301 09/15/2014 DRAIN/INJECT JOINT/BURSA CPT-4: 21533 09/15/2014 TRIAMCINOLONE ACET INJ NOS CPT-4: J3301 08/03/2014 ADMIN INFLUENZA VIRUS VAC CPT-4: G0008 06/29/2014 FLU VAC NO PRSV 4 DONTE 3 YRS+ Assigned to/GavinoAbigail CPT-4: 82112Txvnqiy 06/29/2014 TRIAMCINOLONE ACET INJ NOS CPT-4: J3301 04/27/2014 ROUTINE VENIPUNCTURE CPT-4: 92843 08/21/2013 URINALYSIS NONAUTO W/O SCOPE CPT-4: 43810 08/18/2013 PRESCRIP TRANSMIT VIA ERX SY CPT-4: G8553 08/18/2013 ADMIN PNEUMOCOCCAL VACCINE SNOMED CT: 31673898 CPT-4: G0009 07/31/2013 Pneumococcal Polysaccharide Vaccine, 23-Valent, Ad CPT-4: 45322 07/31/2013 ADMIN INFLUENZA VIRUS VAC CPT-4: G0008 07/23/2013 FLULAVAL VACC, 3 YRS & >, IM CPT-4: Q2036 07/23/2013 PRESCRIP TRANSMIT VIA ERX SY CPT-4: G8553 04/29/2013 URINALYSIS NONAUTO W/O SCOPE CPT-4: 99588 04/14/2013 URINALYSIS NONAUTO W/O SCOPE CPT-4: 04018 03/24/2013 REMOVAL OF SKIN TAGS <W/15 CPT-4: 94100 02/06/2013 TRIAMCINOLONE ACET INJ NOS CPT-4: J3301 11/05/2012 THER/PROPH/DIAG INJ SC/IM CPT-4: 56578 11/05/2012 PRESCRIP TRANSMIT VIA ERX SY CPT-4: G8553 11/05/2012 URINALYSIS NONAUTO W/O SCOPE CPT-4: 05218 10/31/2012 URINALYSIS NONAUTO W/O SCOPE CPT-4: 67008 09/25/2012 PRESCRIP TRANSMIT VIA ERX SY CPT-4: G8553 09/25/2012 URINALYSIS NONAUTO W/O SCOPE CPT-4: 53299 08/20/2012 PRESCRIP TRANSMIT VIA ERX SY CPT-4: G8553 08/20/2012 ADMIN INFLUENZA VIRUS VAC CPT-4: G0008 07/01/2012 FLULAVAL VACC, 3 YRS & >, IM CPT-4: Q2036 07/01/2012 URINALYSIS NONAUTO W/O SCOPE CPT-4: 24424 04/19/2012 KETOROLAC TROMETHAMINE INJ CPT-4: J1885 04/04/2012 PRESCRIP TRANSMIT VIA ERX SY CPT-4: G8553 04/04/2012 PRESCRIP TRANSMIT VIA ERX SY CPT-4: G8553 04/01/2012 Vital Signs Date Vital 10/14/2018 Blood Pressure 1: 140/80 Code : 8480-6 BMI: 24.7 Code : 37994-3 Heart Rate 1 : 59 bpm Height: 5'8" SpO2: 97% Weight: 162 lbs 2 oz 09/02/2018 Blood Pressure 1: 140/76 Code : 8480-6 BMI: 21.9 Code : 52411-9 Heart Rate 1 : 56 bpm Height: 5'8" SpO2: 97% Waist Measure (cm): 94 cm Weight: 144 lbs 05/21/2018 Blood Pressure 1: 136/80 Code : 8480-6 BMI: 24.6 Code : 23859-5 Heart Rate 1 : 57 bpm Height: 5'8" SpO2: 96% Weight: 162 lbs 03/04/2018 Blood Pressure 1: 160/82 Code : 8480-6 BMI: 24.3 Code : 57815-0 Heart Rate 1 : 67 bpm Height: 5'8" SpO2: 99% Temperature: 36.6 (C) / 97.9 (F) Weight: 160 lbs 01/22/2018 Blood Pressure 1: 132/84 Code : 8480-6 BMI: 24.2 Code : 05228-5 Heart Rate 1 : 64 bpm Height: 5'8" SpO2: 95% Weight: 159 lbs 10/22/2017 Blood Pressure 1: 152/78 Code : 8480-6 BMI: 24.0 Code : 97134-2 Heart Rate 1 : 68 bpm Height: 5'8" SpO2: 97% Weight: 158 lbs 08/22/2017 BMI: 24.8 Code: 38071-1 Height: 5'8" Weight: 163 lbs 08/15/2017 Blood Pressure 1: 140/74 Code : 8480-6 Heart Rate 1: 75 bpm Height: 5'8" SpO2: 96% Weight: 06/19/2017 Blood Pressure 1: 146/62 Code : 8480-6 BMI: 25.7 Code : 72996-9 Heart Rate 1 : 64 bpm Height: 5'8" SpO2: 96% Weight: 169 lbs 02/13/2017 Blood Pressure 1: 150/78 Code : 8480-6 BMI: 27.2 Code : 30866-6 Heart Rate 1 : 70 bpm Height: 5'8" SpO2: 96% Weight: 179 lbs 02/05/2017 Blood Pressure 1: 146/74 Code : 8480-6 BMI: 26.9 Code : 04143-5 Heart Rate 1 : 70 bpm Height: 5'8" SpO2: 96% Weight: 177 lbs 02/02/2017 Blood Pressure 1: 124/62 Code : 8480-6 BMI: 26.9 Code : 00442-8 Heart Rate 1 : 54 bpm Height: 5'8" SpO2: 94% Weight: 177 lbs 12/12/2016 Blood Pressure 1: 130/72 Code : 8480-6 BMI: 27.1 Code : 29120-3 Heart Rate 1 : 82 bpm Height: 5'8" SpO2: 95% Weight: 178 lbs 8 oz 06/21/2016 Blood Pressure 1: 136/74 Code : 8480-6 BMI: 25.8 Code : 58120-4 Heart Rate 1 : 86 bpm Height: 5'8" SpO2: 98% Weight: 170 lbs 05/24/2016 Blood Pressure 1: 132/80 Code : 8480-6 BMI: 25.7 Code : 24046-6 Heart Rate 1 : 67 bpm Height: 5'8" SpO2: 96% Weight: 169 lbs 02/02/2016 Blood Pressure 1: 138/80 Code : 8480-6 BMI: 25.8 Code : 93455-4 Heart Rate 1 : 67 bpm Height: 5'8" SpO2: 94% Weight: 170 lbs 11/03/2015 Blood Pressure 1: 138/82 Code : 8480-6 BMI: 26.0 Code : 19099-3 Heart Rate 1 : 80 bpm Height: 5'8" SpO2: 92% Weight: 171 lbs 02/02/2015 Blood Pressure 1: 136/88 Code : 8480-6 BMI: 26.6 Code : 48760-8 Heart Rate 1 : 67 bpm Height: 5'8" SpO2: 97% Temperature: 37.2 (C) / 98.9 (F) Weight: 175 lbs 01/25/2015 Blood Pressure 1: 150/92 Code : 8480-6 BMI: 26.6 Code : 43413-2 Heart Rate 1 : 79 bpm Height: 5'8" SpO2: 98% Weight: 175 lbs 11/26/2014 Blood Pressure 1: 148/92 Code : 8480-6 Blood Pressure 2: 142/92 Code: 8480-6 BMI: 26.5 Code: 32450-6 Heart Rate 1: 68 bpm Height: 5'8" Weight: 174 lbs 09/15/2014 Blood Pressure 1: 150/84 Code : 8480-6 BMI: 26.5 Code : 90593-5 Heart Rate 1 : 80 bpm Height: 5'8" Weight: 174 lbs 08/13/2014 Blood Pressure 1: 140/84 Code : 8480-6 Heart Rate 1: 82 bpm Height: Weight: 08/03/2014 Blood Pressure 1: 142/76 Code : 8480-6 BMI: 26.3 Code : 39327-1 Heart Rate 1 : 80 bpm Height: 5'8" Weight: 173 lbs 07/23/2014 Blood Pressure 1: 148/80 Code : 8480-6 Heart Rate 1: 76 bpm Weight: 175 lbs 06/29/2014 Blood Pressure 1: 140/82 Code : 8480-6 BMI: 26.5 Code : 23304-4 Heart Rate 1 : 60 bpm Height: 5'8" Weight: 174 lbs 04/27/2014 Blood Pressure 1: 112/70 Code : 8480-6 BMI: 26.5 Code : 01720-3 Heart Rate 1 : 72 bpm Height: 5'8" SpO2: 98% Weight: 174 lbs 01/28/2014 Blood Pressure 1: 134/80 Code : 8480-6 BMI: 26.6 Code : 21091-4 Heart Rate 1 : 72 bpm Height: 5'8" Weight: 175 lbs 01/05/2014 Blood Pressure 1: 142/86 Code : 8480-6 BMI: 27.2 Code : 57518-9 Heart Rate 1 : 78 bpm Height: 5'8" Weight: 179 lbs 11/17/2013 Blood Pressure 1: 118/62 Code : 8480-6 BMI: 27.1 Code : 19668-4 Heart Rate 1 : 76 bpm Height: 5'8" Weight: 178 lbs 08/27/2013 Blood Pressure 1: 126/80 Code : 8480-6 BMI: 26.6 Code : 85253-7 Heart Rate 1 : 72 bpm Height: [...] Code : 8480-6 BMI: 26.5 Code : 14343-5 Heart Rate 1 : 72 bpm Height: 5'8" Weight: 174 lbs 8 oz 03/24/2013 Blood Pressure 1: 112/78 Code : 8480-6 BMI: 26.2 Code : 51473-5 Heart Rate 1 : 72 bpm Height: [...] Symptom Name Status Result Effective Date Notes Location in the LLQ 10/14/2018 None Location [...] data Encounters Encounter Performer Location Codes Date ([id number]) 10433 EST. PATIENT, LEVEL III Diagnosis: Diverticulitis of large intestine without perforation or abscess without bleeding[ICD10: K57.32] Tessa George MD [facility] CPT-4: 91849 10/14/2018 ([id number]) 03546 EST. PATIENT, LEVEL IV Diagnosis: Essential (primary) hypertension[ICD10: I10] Diagnosis: Tobacco use[ICD10: Z72.0] Diagnosis: Functional diarrhea[ICD10: K59.1] Tessa George MD [facility] CPT-4: 11403 05/21/2018 ([id number]) 57976 EST. PATIENT, LEVEL III Diagnosis: Insect bite (nonvenomous) of abdominal wall, initial encounter[ICD10 : S30.861A] Tessa George MD [facility] CPT-4: 39372 ([id number]) 27923 EST. PATIENT, LEVEL IV Diagnosis: Essential (primary) hypertension[ICD10: I10] Diagnosis: Tobacco use[ICD10: Z72.0] Diagnosis: Functional diarrhea[ICD10: K59.1] Tessa George MD [facility] CPT-4: 82040 01/22/2018 ([id number]) 59283 EST. PATIENT, LEVEL III Diagnosis: Essential (primary) hypertension[ICD10: I10] Diagnosis: Functional diarrhea[ICD10: K59.1] Tessa George MD [facility] CPT-4: 39279 10/22/2017 40529 EST. PATIENT, LEVEL III Diagnosis: Rash and other nonspecific skin eruption[ICD10: R21] Brooke George MD [facility] CPT-4: 70524 08/15/2017 ([id number]) 55382 EST. PATIENT, LEVEL IV Diagnosis: Essential (primary) hypertension[ICD10: I10] Diagnosis: Functional diarrhea[ICD10: K59.1] Diagnosis: Epigastric pain[ICD10: R10.13] Tessa George MD [facility] CPT- 4: 70781 06/19/2017 ([id number]) 21594 EST. PATIENT, LEVEL IV Diagnosis: Essential (primary) hypertension[ICD10: I10] Diagnosis: Epigastric pain[ICD10: R10.13] Tessa George MD [facility] CPT- 4: 68620 02/13/2017 19307 EST. PATIENT, LEVEL IV Diagnosis: Low back pain[ICD10: M54.5] Brooke George MD, [facility] CPT-4 : 26250 02/05/2017 46104 EST. PATIENT, LEVEL IV Diagnosis: Dysuria[ICD10: R30.0] Diagnosis: Low back pain[ICD10: M54.5] Brooke George MD, [facility] CPT-4 : 63376 02/02/2017 ([id number]) 88572 EST. PATIENT, LEVEL IV Diagnosis: Essential (primary) hypertension[ICD10: I10] Diagnosis: Dysuria[ICD10: R30.0] Diagnosis: Tobacco use[ICD10: Z72.0] Tessa George MD, [facility] CPT-4: 56597 12/12/2016 17644 EST. PATIENT, LEVEL IV Diagnosis: Other acute sinusitis[ICD10: J01.80] Diagnosis: Other allergic rhinitis[ICD10: J30.89] Brooke George MD, [facility] CPT-4: 33315 06/21/2016 ([id number]) 64870 EST. PATIENT, LEVEL III Diagnosis: Essential (primary) hypertension[ICD10: I10] Diagnosis: Major depressive disorder, single episode, unspecified[ICD10: F32.9] Tessa George MD, [facility] CPT-4: 22922 05/24/2016 ([id number]) 88709 EST. PATIENT, LEVEL IV Diagnosis: Essential (primary) hypertension[ICD10: I10] Diagnosis: Major depressive disorder, single episode, unspecified[ICD10: F32.9] Diagnosis: Tobacco use[ICD10: Z72.0] Tessa George MD, [facility] CPT-4: 62171 02/02/2016 ([id number]) 58335 EST. PATIENT, LEVEL IV Diagnosis: Essential (primary) hypertension[ICD10: I10] Diagnosis: Polymyalgia rheumatica[ICD10: M35.3] Diagnosis: Major depressive disorder, single episode, unspecified[ICD10: F32.9] Tessa George MD, [facility] CPT-4: 67648 11/03/2015 ([id number]) Miscellaneous no charge Diagnosis: Hyperpigmented skin lesion[ICD9: 709.00] Tessa George MD, [facility] CPT-4: 66318 02/12/2015 ([id number]) 27968 EST. PATIENT, LEVEL IV Diagnosis: ESSENTIAL HYPERTENSION[ICD9: 401.9] Diagnosis: DEPRESSIVE DISORDER NEC[ICD9: 311] Diagnosis: POLYMYALGIA RHEUMATICA[ICD9: 725] Tessa George MD [facility] CPT-4: 93579 01/25/2015 ([id number]) 60176 EST. PATIENT, LEVEL IV Diagnosis: ESSENTIAL HYPERTENSION[ICD9: 401.9] Diagnosis: Polymyalgia rheumatica syndrome[ICD9: 725] Diagnosis: Smoking[ICD9: 305.1] Tessa George MD [facility] CPT-4: 48874 11/26/2014 ([id number]) 58008 EST. PATIENT, LEVEL III Diagnosis: ESSENTIAL HYPERTENSION[ICD9: 401.9] Diagnosis: Sacroiliitis[ICD9: 720.2] Tessa George MD [facility] CPT-4: 76488 09/15/2014 ([id number]) 12953 EST. PATIENT, LEVEL III Diagnosis: Hip pain[ICD9: 719.45] Diagnosis: Sacroiliac pain[ICD9: 724.6] Tessa George MD [facility] CPT- 4: 01614 08/13/2014 ([id number]) 61270 EST. PATIENT, LEVEL III Diagnosis: ACUTE SINUSITIS[ICD9: 461.9] Diagnosis: ALLERGIC RHINITIS[ICD9: 477.9] Aviva George MD [facility] CPT-4: 67499 08/03/2014 ([id number]) 50277 EST. PATIENT, LEVEL IV Diagnosis: ESSENTIAL HYPERTENSION[ICD9: 401.9] Diagnosis: DEPRESSIVE DISORDER NEC[ICD9: 311] Diagnosis: POLYMYALGIA RHEUMATICA[ICD9: 725] Tessa George MD [facility] CPT-4: 96984 07/23/2014 ([id number]) 17260 EST. PATIENT, LEVEL IV Diagnosis: ESSENTIAL HYPERTENSION[ICD9: 401.9] Diagnosis: DEPRESSIVE DISORDER NEC[ICD9: 311] Diagnosis: POLYMYALGIA RHEUMATICA[ICD9: 725] Diagnosis: VACCIN FOR INFLUENZA[ICD10: Z23] Tessa George MD, [facility] CPT-4: 06433 06/29/2014 ([id number]) 60628 EST. PATIENT, LEVEL III Diagnosis: ACUTE MAXILLARY SINUSITIS[ICD9: 461.0] Diagnosis: BPPV (benign paroxysmal positional vertigo)[ICD9: 386.11] Aviva George MD , [facility] CPT-4: 05523 04/27/2014 ([id number]) 53243 EST. PATIENT, LEVEL III Diagnosis: ESSENTIAL HYPERTENSION[SNOMED: 06637713] Diagnosis: Fatigue[ICD9: 780.79] Diagnosis: DEPRESSIVE DISORDER NEC[ICD9: 311] Tessa George MD [facility] CPT-4: 32313 01/28/2014 ([id number]) 10311 EST. PATIENT, LEVEL III Diagnosis: ESSENTIAL HYPERTENSION[SNOMED: 81071835] Diagnosis: Blurry vision, bilateral[ICD9: 368.8] Tessa George MD [facility] CPT-4: 08130 01/05/2014 ([id number]) 59040 EST. PATIENT, LEVEL IV Diagnosis: POLYMYALGIA RHEUMATICA[ICD9: 725] Diagnosis: PAIN IN LIMB[ICD9: 729.5] Diagnosis: ESSENTIAL HYPERTENSION[SNOMED: 14242639] Tessa George MD [facility] CPT-4: 31498 11/17/2013 ([id number]) 84685 EST. PATIENT, LEVEL III Diagnosis: Polymyalgia rheumatica syndrome[ICD9: 725] Tessa George MD [facility] CPT-4: 31138 08/27/2013 ([id number]) 77766 EST. PATIENT, LEVEL III Diagnosis: ESSENTIAL HYPERTENSION[SNOMED: 68354751] Diagnosis: Fatigue[ICD9: 780.79] Tessa George MD [facility] CPT-4: 42778 08/21/2013 ([id number]) 39830 EST. PATIENT, LEVEL III Diagnosis: Urinary tract infection[ICD9: 599.0] Diagnosis: ESSENTIAL HYPERTENSION[SNOMED: 60103157] Aviva George MD [facility] CPT-4: 85877 08/18/2013 ([id number]) 32952 EST. PATIENT, LEVEL IV Diagnosis: ESSENTIAL HYPERTENSION[SNOMED: 76899418] Diagnosis: HEMATURIA NOS[ICD9: 599.70] Diagnosis: CHRONIC INTERSTITIAL CYSTITIS[ICD9: 595.1] Tessa George MD [facility] CPT-4: 86456 04/29/2013 ([id number]) 64331 EST. PATIENT, LEVEL III Diagnosis: Recurrent urinary tract infection[ICD9: 599.0] Diagnosis: DYSURIA[ICD9: 788.1] Tessa George MD [facility] CPT-4: 47338 03/24/2013 ([id number]) 35700 EST. PATIENT, LEVEL IV Diagnosis: ESSENTIAL HYPERTENSION[SNOMED: 33484486] Diagnosis: HYPERLIPIDEMIA[ICD9: 272.4] Diagnosis: Irritated nevus of neck[ICD9: 216.4] Tessa George MD [facility] CPT-4: 24845 02/06/2013 ([id number]) 27728 EST. PATIENT, LEVEL III Diagnosis: ACUTE MAXILLARY SINUSITIS[ICD9: 461.0] Diagnosis: ACUTE URI[ICD9: 465.9] Diagnosis: COUGH[ICD9: 786.2] Tessa George MD [facility] CPT-4: 42318 11/05/2012 ([id number]) 63613 EST. PATIENT, LEVEL III Diagnosis: ESSENTIAL HYPERTENSION[SNOMED: 67656588] Diagnosis: ILL-DEFINE CONDITION NEC[ICD9: 799.89] Tessa George MD [facility] CPT-4: 15211 10/31/2012 ([id number]) 93896 EST. PATIENT, LEVEL III Diagnosis: ESSENTIAL HYPERTENSION[SNOMED: 42244619] Tessa George MD [facility] CPT-4: 06545 09/03/2012 ([id number]) 15409 EST. PATIENT, LEVEL III Diagnosis: UTI[ICD9: 599.0] Diagnosis: Microscopic hematuria[ICD9: 599.72] Diagnosis: ESSENTIAL HYPERTENSION[SNOMED: 67358182] Tessa George MD [facility] CPT-4: 83400 08/20/2012 ([id number]) 47855 EST. PATIENT, LEVEL IV Diagnosis: Constipation - functional[ICD9: 564.09] Diagnosis: Abdominal pain[ICD9: 789.00] Tessa George MD [facility] CPT- 4: 26506 07/16/2012 ([id number]) 81687 EST. PATIENT, LEVEL IV Diagnosis: ESSENTIAL HYPERTENSION[SNOMED: 76447273] Diagnosis: Fatigue[ICD9: 780.79] Diagnosis: Constipation - functional[ICD9: 564.09] Tessa George MD [facility] CPT-4: 55228 07/01/2012 ([id number]) 89497 EST. PATIENT, LEVEL III Diagnosis: ESSENTIAL HYPERTENSION[SNOMED: 08403778] Diagnosis: HEADACHE[ICD9: 784.0] Tessa George MD [facility] CPT-4: 95177 05/08/2012 15898 EST. PATIENT, LEVEL IV Diagnosis: Urinary tract infection[ICD9: 599.0] Diagnosis: ESSENTIAL HYPERTENSION[SNOMED: 92634621] Diagnosis: Fatigue[ICD9: 780.79] Tessa George MD [facility] CPT-4: 89867 04/19/2012 ([id number]) 07554 EST. PATIENT, LEVEL IV Diagnosis: ESSENTIAL HYPERTENSION[SNOMED: 45197527] Diagnosis: Mouth dryness[ICD9: 527.7] Diagnosis: HEADACHE[ICD9: 784.0] Diagnosis: CERVICALGIA[ICD9: 723.1] Tessa George MD [facility] CPT-4: 01880 04/15/2012 ([id number]) 16384 EST. PATIENT, LEVEL IV Diagnosis: Urinary tract infection[ICD9: 599.0] Diagnosis: Generally unwell[ICD9: 799.89] Diagnosis: ESSENTIAL HYPERTENSION[SNOMED: 69988040] Diagnosis: MYALGIA AND MYOSITIS[ICD9: 729.1] Tessa George MD [facility] CPT-4: 30210 04/04/2012 ([id number]) 77129 EST. PATIENT, LEVEL IV Diagnosis: ESSENTIAL HYPERTENSION[SNOMED: 20359988] Diagnosis: Unsteady gait[ICD9: 781.2] Diagnosis: Neck pain[ICD9: 723.1] Tessa George MD [facility] CPT-4: 65461 04/01/2012 ([id number]) Patient admitted to the hospital from clinic (NO CHARGE) Diagnosis: Pericardial rub[ICD9: 785.3] Diagnosis: ESSENTIAL HYPERTENSION[SNOMED: 90112200] Diagnosis: HEADACHE[ICD9: 784.0] Diagnosis: Arm pain[ICD9: 729.5] [facility] CPT-4: 48687K 03/20/2012 Plan of Care Planned Activity Notes Codes Status Date Visit Plan: Diverticulitis - rx for antibiotic sent to pt' s pharmacy - pt advised to avoid seeds, nuts, popcorn, or any other food which has been proven to upset the pt's stomach. accuflora - 14billion unit - take while on antibiotics call if you are not feeling any better by sunday10/14/2018 Appointment: Tessa Geroge WPtel: [facility] (15 min) Moderate 10/14/2018 Patient Education: Patient Medication Summary Completed 10/14/2018 Appointment: Tessa George WPtel: [facility] (15 min) Moderate 09/24/2018 Visit Plan: Medicare [...] 09/02/2018 Appointment: Brooke Dominguez WPtel: [facility]8 [facility] MCR - Annual Wellness Visit 09/02/2018 [...] monitor symptoms. 05/21/2018 Appointment: Tessa George WPtel: [phone] [facility] (15 min) Moderate 05/21/2018 Patient Education: Patient Medication Summary Completed 05/21/2018 Visit Plan: tick bite - rx for doxycycline - and use benadryl cream on the tick bites to help decrease itching 03/04/2018 Appointment: Tessa George WPtel: [facility] (15 min) Moderate 03/04/2018 Patient Education: [...] cessation strategies. 01/22/2018 Appointment: Tessa George WPtel: [facility] (15 min) Moderate 01/22/2018 Patient Education: Patient [...] not resolved. 10/22/2017 [phone] ([facility]) Moderate 10/22/2017 Patient Education: [...] taper. 08/15/2017 [phone] ([facility] min) Complex 08/15/2017 Patient Education: Patient [...] home. 06/19/2017 Appointment: [phone] [place] (15 min) Moderate 06/19/2017 Patient Education: [...] the abdomen 02/13/2017 Appointment: Tessa George WPtel: [facility] [place] (15 min) Moderate 02/13/2017 Patient Education: [...] or does not improve. 02/05/2017 Appointment: Brooke Domignuez WPtel: [facility] [place] (15 min) Moderate 02/05/2017 Patient Education: [...] improve. 02/02/2017 Appointment: Brooke Dominguez WPtel: [phone] [facility] [place] (15 min) Moderate 02/02/2017 Patient [...] of stopping. 12/12/2016 App[facility]ment: [phone] (15 min) Moderate 12/12/2016 Patient Education: [...] allergy spray. 06/21/2016 Appointment: [phone] (15 min) Moderate 06/21/2016 Patient Education: Patient [...] weeks. 02/02/2015 Appointment: [phone] [place] [facility] Procedure 02/02/2015 Patient Education: [...] smoker. 11/26/2014 Appointment: [phone] [facility] Follow up 11/26/2014 Patient Education: Patient [...] 09/15/2014 Appointment: Tessa George WPtel: [facility]5 [place] [phone] Follow up 09/15/2014 Patient Education: Patient Medication Summary Completed 09/15/2014 Visit Plan: Hip pain - stat xray right hip - antiinflammatories. Pt to use heat to hip, monitor symptoms - and pt to call if not improving, pt to be called with hip xray report. 08/13/2014 Appointment: Tessa George WPtel: [address] [place] [address] Sick 08/13/2014 Patient Education: Patient Medication Summary [...] 60mg daily. 07/23/2014 Appointment: Tessa George WPtel: [facility] Follow up 07/23/2014 Patient Education: Patient Medication [...] today 06/29/2014 Appointment: Tessa George WPtel: [phone] [facility] Follow up 06/29/2014 Patient Education: Patient Medication [...] on cymbalta. 01/28/2014 Appointment: [phone] Follow up 01/28/2014 Patient Education: Patient [...] Dr. Benites. 01/05/2014 Appointment: Tessa George WPtel: [address] [place], [place] [phone] Follow up 01/05/2014 Patient Education: Patient Medication Summary Completed 01/05/2014 Patient Education: Hypertension Completed 01/05/2014 Appointment: Tessa George WPtel: [address] [place], [place] [phone] Follow up 11/27/2013 Visit Plan: Hypertension - [...] for pain 11/17/2013 Appointment: Tessa George WPtel: [address] [place], [place] [phone] [place] Other 11/17/2013 Patient Education: Patient Medication Summary Completed 11/17/2013 Patient Education: Hypertension Completed 11/17/2013 Appointment: Tessa George WPtel: [address] [place], [place] [phone] [place] Lab Draw 10/29/2013 Visit Plan: Polymyalgia [...] side effects. 08/27/2013 Appointment: Tessa George WPtel: [address] [place], [place] [phone] Follow up 08/27/2013 Patient Education: Patient Medication [...] not improve. 08/18/2013 Appointment: Aviva Patton WPtel: [phone] [place] Other 08/18/2013 Patient Education: Patient Medication Summary Completed 08/18/2013 Patient Education: Hypertension Completed 08/18/2013 Appointment: [phone] [place] Injection 07/31/2013 Patient Education: Patient Medication Summary Completed 07/31/2013 Appointment: Aviva Patton WPtel: [phone] [place] Injection 07/23/2013 Patient Education: Patient [...] dysuria. 04/29/2013 Appointment: [phone] [place] Follow up 04/29/2013 Patient Education: Patient Medication Summary Completed 04/29/2013 Patient Education: Hypertension Completed 04/29/2013 Appointment: Tessa George WPtel: [facility] [place] Lab Draw 04/14/2013 Patient Education: Patient Medication Summary Completed 04/14/2013 Visit Plan: DYSURIA - WITH RECURRENT UTI - WILLGIVE ANTIBIOTIC AND REFER PT TO SEE DR. CHOW ABOUT RECTOCELE AND CYSTOCELE. 03/24/2013 Appointment: Tessa George WPtel: [id number] Other 03/24/2013 Patient Education: Patient Medication Summary [...] silver nitrate. 02/06/2013 Appointment: Tessa George WPtel: [facility] Follow up 02/06/2013 Patient Education: Patient Medication Summary Completed 02/06/2013 Patient Education: Hypertension Completed 02/06/2013 Visit Plan: Sinusitis - Pt has acute infection - pain in face, maxillary region, Pt informed to use decongestant, RX given to patient, sinus rinses also recommended. Call if symptoms do not show improvement. 11/05/2012 Appointment: Tessa George WPtel: [id number] Other 11/05/2012 Patient Education: Patient Medication Summary [...] clinic. 10/31/2012 Appointment: Tessa George WPtel: [phone] [facility] Follow up 10/31/2012 Patient Education: Patient Medication [...] Ordoñez 09/25/2012 Appointment: Tessa George WPtel: [phone] [facility] Follow up 09/25/2012 Patient Education: Patient Medication [...] home. 09/03/2012 App[facility]ment[phone] Follow [facility] 09/03/2012 Patient Education: Patient [...] review. 08/20/2012 Appointment: Aviva Patton WPtel: [phone] [phone] Follow up 08/20/2012 Patient Education: Patient [...] miralax 07/16/2012 Appointment: Aviva Patton WPtel: [phone] [phone] Sick 07/16/2012 Patient Education: Patient Medication [...] kn benefiber 07/01/2012 Appointment: Tessa George WPtel: [facility] Follow [facility] 07/01/2012 Patient Education: Patient [...] stopping. 05/08/2012 Appointment: Tessa George WPtel: [phone] [facility] 05/08/2012 Patient Education: Patient Medication [...] acute concerns. 04/19/2012 Appointment: Aviva Patton WPtel: [facility] [place] [address] 04/19/2012 Patient Education: Patient Medication Summary Completed [...] the coreg. 04/15/2012 Appointment: [phone] [facility] 04/15/2012 Patient Education: Patient Medication Summary Completed 04/15/2012 Patient Education: High Blood Pressure: Essential Hypertension Completed 2011 Appointment: Tessa George WPtel: [facility] Lab Draw 04/08/2012 Visit Plan: UTI - [...] 04/04/2012 Appointment: Tessa George WPtel: [facility] Other 04/04/2012 Patient Education: Patient Medication Summary [...] bid 04/01/2012 Appointment: Tessa George WPtel: [phone] [facility] [place] Other 04/01/2012 Patient Education: Patient Medication Summary Completed 04/01/2012 Patient Education: High Blood Pressure: Essential Hypertension Completed 2011 Visit Plan: Pericardial tlj-OTJ-Usabpkwf-arm pain-history of shingles-Dr. George in to evaluate [...] AND EVALUATION OF THE ACUTE ILLNESS. Pericardial cou-CQZ-Duyuwnsh-arm pain-history of shingles- Dr. George in to evaluate patient-plan to admit for further work up and close monitoring. Plan to get labs STAT including a cardiac panel. A stat echo has also been ordered as well with cardiology consult. 03/20/2012 Appointment: Aviva Pattontel: [address] [place] [address] [place] Other 03/20/2012 Patient Education: Patient Medication Summary Completed 03/20/2012 Patient Education: High Blood Pressure: Essential Hypertension Completed 2011 Appointment: Aviva Pattontel: [address] [place] [address] Other 08/30/2011 Instructions Comment . Hypertension - [...] this patient. Pt started on cymbalta. . Medicare Exam - today we discussed [...] DOPA paperwork for health care surrogate. . Medicare Exam - today we discussed [...] of breath she is to call clinic. we will order a ct of abdomen [...] exposure. No change in current medications. . Headache - Start on the Naprosyn [...] in a home with another smoker. . Sinusitis - Pt has acute infection [...] if needed for symptoms of dysuria. . Pericardial pwc-FHR-Eonbubjf-arm pain-history of shingles -Dr. George in to [...] AND EVALUATION OF THE ACUTE ILLNESS. Pericardial swr-GUB-Ikxidrce-arm pain-history of shingles-Dr. George in to evaluate [...] Recommended pt to start kn benefiber . Ongoing flank/low back pain - will [...] Will give RX after review of labs. hold the flexeril start on the LEVSIN [...] if needed for spasms of the abdomen Increase your probiotic to twice daily I [...] is to call for acute concerns. . Skin lesion biopsied - the lesion [...] remove the sutures in 2 weeks. . Sacroiliitis - back exercises discussed with [...] call if symptoms do not improve. . Hypertension - well controlled [...] Diarrhea - improved - monitor symptoms. . Hip pain - stat xray right hip - antiinflammatories. Pt to use heat to hip, monitor symptoms - and pt to call if not improving, pt to be called with hip xray report. . Hypertension - well controlled - continue [...] Tobaccoism - pt not interested in stopping. toprol 1/2 pill twice daily. Hypertension - well controlled - continue with current medications, continue with no added salt diet. Pt has been encouraged to exercise daily. The pt has been advised to call the office if there are any acute concerns about change in blood pressure readings at home. accuflora - 14billion unit - take while [...] pressure readings at home. flu shot today Nasal spray- use twice daily, one spray [...] smoking - discussed smoking cessation strategies. . STOP THE DOXYCYCLINE, START ON CIPROFLOXACIN [...] spray in the nasal steroid allergy spray. miralax. Constipation - uncontrolled - I have [...] DR. CHOW ABOUT RECTOCELE AND CYSTOCELE. . UTI - pt with positive urinalysis [...] if unable to tolerate the medication. . Hypertension - well controlled - continue [...] on tobacco intake with goal of stopping. tick bite - rx for doxycycline - and use benadryl cream on the tick bites to help decrease itching bull frog - sunscreen and insect repellent . tick bite - rx for doxycycline - and use benadryl cream on the tick bites to help decrease itching
--- OUTSIDE RECORDS SUMMARY | 2019-01-26 14:57 | XMS REPORT | CCD ---
Author Author Aviva Patton Organization Tessa George MD, [facility] Address [address] [place] [address] Phone Care Team Providers Care Quality Assurance Tester Name Role Phone Tessa George PP Unavailable CCM Unavailable Summary Purpose Interface Exchange Insurance Providers Payer name Policy type / Coverage type Covered green party ID Effective Begin Date Effective End Date WPS Medicare Part B Medicare Part B [id number] Unknown FOR LIFE WPS Medicare Part B [id number] Unknown Family history Mother Diagnosis Age At Onset Myocardial infarction Unknown Father Diagnosis Age At Onset Cancer Unknown bladder cancer Unknown Myocardial infarction Unknown Brother Diagnosis Age At Onset Myocardial infarction Unknown Social History Social History Element Codes Description Effective Dates Marital status Unknown 02/02/[address]: 07198221 Current every day smoker 02/02/2016 Number of children Unknown 2 sons living and well 03/20/2012 Living arrangements Unknown House 03/20/2012 Employment Unknown Retired 03/20/2012 Number of years using tobacco Unknown 40 03/20/2012 Number of cigarettes/day Unknown 10 ( Half a pack) 03/20/[address]: 698446182 Never drinks alcohol 03/20/2012 Allergies, Adverse Reactions, [...] Instructions Augmentin 875 mg-125 mg tablet RxNorm: 131729 1 Tablet(s) PO BID 10/14/2018 10/23/2018 Active doxycycline hyclate 100 mg tablet RxNorm: 951797 1 Tablet(s) PO BID 03/04/2018 03/10/2018 Inactive Pepcid AC 20 mg tablet RxNorm: 227097 1 Tablet(s) PO BID 201704/16/2019 Active pt requested a 90 day supply please Pepcid AC 20 mg tablet RxNorm: 302025 1 Tablet(s) PO BID 201701/21/2018 Inactive Pepcid AC 20 mg tablet RxNorm: 323774 1 Tablet(s) PO BID 201701/17/2018 Inactive Pepcid AC 20 mg tablet RxNorm: 503032 1 Tablet(s) PO BID 201712/18/2017 Inactive Flagyl 500 mg tablet RxNorm: 689694 1 Tablet(s) PO TID 201712/28/2017 Inactive Cymbalta 60 mg capsule,delayed release RxNorm: 913288 1 CAPSULE(S) PO DAILY 1 CAPSULE(S) PO DAILY 12/14/2017 No Stop Date Active Toprol XL 25 mg tablet,extended release RxNorm: 549540 1 TABLET(S) PO BID 12/14/2017 No Stop Date Active furosemide 20 mg tablet RxNorm: 572402 TAKE 1 TABLET DAILY No Stop Date Active Kenalog 40 mg/mL suspension for injection RxNorm: 1332906 1.5 Milliliter(s) Inj 08/15/2017 08/15/2017 Inactive triamcinolone acetonide 0.025 % topical cream RxNorm: 1711056 1 Application TOP BID as needed 08/15/2017 08/19/2017 Inactive prednisone 20 mg tablet RxNorm: 574287 2 Tablet(s) PO daily 10/201608/19/2017 Inactive Flagyl 500 mg tablet RxNorm: 720240 1 Tablet(s) PO TID 201608/10/2017 Inactive Flagyl 500 mg tablet RxNorm: 018771 1 Tablet(s) PO TID 201607/31/2017 Inactive Questran 4 gram powder for susp in a packet RxNorm: 898438 1/2 packet PO QID 06/19/2017 01/14/2018 Inactive Levsin/SL 0.125 mg sublingual tablet RxNorm: 6818732 1 Tablet(s) SL QID as needed abdominal pain or abdominal spasms 02/13/2017 08/19/2017 Inactive cyclobenzaprine 5 mg tablet RxNorm: 084649 1 Tablet(s) PO TID as needed 02/08/2017 02/12/2017 Inactive cyclobenzaprine 5 mg tablet RxNorm: 553627 1 Tablet(s) PO TID as needed 02/05/2017 02/07/2017 Inactive Cipro 250 mg tablet RxNorm: 416828 1 Tablet(s) PO BID 201602/11/2017 Inactive Cymbalta 60 mg capsule,delayed release RxNorm: 564393 1 Capsule(s) PO daily 1 CAPSULE(S) PO DAILY 12/18/2016 12/12/2017 Inactive Toprol XL 25 mg tablet,extended release RxNorm: 754810 1 Tablet(s) PO BID 12/18/2016 12/12/2017 Inactive [SAVINGS FOR NON-COVERED DRUGS -- BIN:451159, PCN: ASPROD1, Group: XXXXX, ID# [id number], Questions: . THIS IS NOT INSURANCE.] ciprofloxacin 500 mg tablet RxNorm: 924609 1 Tablet(s) PO BID 12/12/2016 12/17/2016 Inactive furosemide 20 mg tablet RxNorm: 006568 TAKE 1 TABLET DAILY 12/201611/11/2017 Inactive levofloxacin 500 mg tablet RxNorm: 095976 1 Tablet(s) PO daily 06/21/2016 06/25/2016 Inactive Kenalog 40 mg/mL suspension for injection RxNorm: 9144870 Milliliter(s) Inj 06/21/2016 06/21/2016 Inactive hydrocodone 5 mg-acetaminophen 325 mg tablet RxNorm: 231698 1-2 Tablet(s) PO Q4- 6H as needed 11/03/2015 02/01/2016 Inactive Cymbalta 60 mg capsule,delayed release RxNorm: 148262 1 Capsule(s) PO daily 1 CAPSULE(S) PO DAILY 11/03/2015 12/17/2016 Inactive furosemide 20 mg tablet RxNorm: 275662 Tablet(s) TAKE 1 TABLET ONCE DAILY 11/03/2015 11/16/2016 Inactive Toprol XL 25 mg tablet,extended release RxNorm: 834216 2 Tablet(s) PO daily 11/03/2015 12/17/2016 Inactive [SAVINGS FOR NON-COVERED DRUGS -- BIN:125554, PCN: ASPROD1, Group: XXXXX, ID# [id number], Questions: . THIS IS NOT INSURANCE.] Cymbalta 60 mg capsule,delayed release RxNorm: 260538 1 Capsule(s) PO daily 1 CAPSULE(S) PO DAILY 05/31/2015 11/02/2015 Inactive Toprol XL 25 mg tablet,extended release RxNorm: 510723 2 Tablet(s) PO daily 01/25/2015 11/02/2015 Inactive [SAVINGS FOR NON-COVERED DRUGS -- BIN:943320, PCN: ASPROD1, Group: XXXXX, ID# [id number], Questions: . THIS IS NOT INSURANCE.] Voltaren 1 % topical gel RxNorm: 606377 2 Gram(s) TOP QID to hands 01/25/2015 05/24/2015 Inactive [SAVINGS FOR NON-COVERED DRUGS -- BIN:159207, PCN: ASPROD1, Group : XXXXX, ID# [id number], Questions: . THIS IS NOT INSURANCE.] furosemide 20 mg tablet RxNorm: 667868 TAKE 1 TABLET ONCE DAILY 12/17/2014 11/02/2015 Inactive Kenalog 40 mg/mL suspension for injection RxNorm: 4833124 2 Milliliter(s) Inj UD 09/17/2014 09/17/2014 Inactive [SAVINGS FOR UNINSURED PATIENTS -- BIN:584178, PCN: ASPROD1, Group: AME08, ID# [id number], Process claim through [employer], for questions: . THIS IS NOT INSURANCE.] Levaquin 500 mg tablet RxNorm: 042298 1 Tablet(s) PO daily 08/16/2014 Inactive [SAVINGS FOR UNINSURED PATIENTS -- BIN:509261, PCN: ASPROD1, Group: AME08 , ID# [id number], Process claim through MedImp[employer], for questions: . THIS IS NOT INSURANCE.] Kenalog 40 mg/mL suspension for injection RxNorm: 6917649 Milliliter(s) Inj 08/03/2014 08/03/2014 Inactive [SAVINGS FOR UNINSURED PATIENTS -- BIN:204356, PCN: ASPROD1, Group: AME08, ID# [id number], Process claim through MedImp[employer], for questions: . THIS IS NOT INSURANCE.] azithromycin 500 mg tablet RxNorm: 666622 1 Tablet(s) PO UD 08/02/2014 Inactive dispense a zpack azithromycin 500 mg tablet RxNorm: 358625 1 Tablet(s) PO daily 08/03/2014 08/07/2014 Inactive 1 tab daily Cymbalta 60 mg capsule,delayed release RxNorm: 905363 1 Capsule(s) PO daily 07/23/2014 05/31/2015 Inactive [SAVINGS FOR UNINSURED PATIENTS -- BIN:773914, PCN: ASPROD1, Group: AME08, ID# [id number], Process claim through MedImpact, for questions: . THIS IS NOT INSURANCE.] Kenalog 40 mg/mL suspension for injection RxNorm: 3249379 1 1/2 Milliliter(s) Inj 04/27/2014 04/27/2014 Inactive [SAVINGS FOR UNINSURED PATIENTS -- BIN:613253, PCN: ASPROD1, Group: AME08, ID# [id number], Process claim through [employer], for questions: . THIS IS NOT INSURANCE.] meclizine 25 mg tablet RxNorm: 437385 1 Tablet(s) PO Q6 PRN 05/26/2014 Inactive [SAVINGS FOR UNINSURED PATIENTS -- BIN:727523, PCN: ASPROD1, Group: AME08 , ID# [id number], Process claim through MedImpact, for questions: . THIS IS NOT INSURANCE.] Levaquin 500 mg tablet RxNorm: 277058 1 Tablet(s) PO daily 05/03/2014 Inactive [SAVINGS FOR UNINSURED PATIENTS -- BIN:829351, PCN: ASPROD1, Group: AME08 , ID# [id number], Process claim through MedImpact, for questions: . THIS IS NOT INSURANCE.] Cymbalta 30 mg capsule,delayed release RxNorm: 739174 1 Capsule(s) PO daily 03/25/2014 07/22/2014 Inactive Cymbalta 30 mg capsule,delayed release RxNorm: 102654 1 Capsule(s) PO daily 01/28/2014 03/24/2014 Inactive furosemide 20 mg tablet RxNorm: 078745 1 Tablet(s) PO daily TAKE 1 TABLET BY MOUTH ONCE DAILY. 12/22/2013 12/16/2014 Inactive Toprol XL 25 mg tablet,extended release RxNorm: 854530 1 Tablet(s) PO daily 12/22/2013 01/24/2015 Inactive furosemide 20 mg tablet RxNorm: 381459 Tablet(s) PO TAKE 1 TABLET BY MOUTH ONCE DAILY. 12/04/2013 12/21/2013 Inactive prednisone 10 mg tablet RxNorm: 864812 Tablet(s) PO 10/28/2013 11/16/2013 Inactive 60mg d x 4 [id number] daily x 4 [id number] daily x 4 [id number] daily x 8 days5 mg daily x 8 day2.5 mg daily x 8 days2.5 mg qod x 8 doses then stop Toprol XL 25 mg tablet,extended release RxNorm: 696456 1 Tablet(s) PO daily 08/27/2013 12/21/2013 Inactive Macrobid 100 mg capsule RxNorm: 2498612 1 Capsule(s) PO BID 01/201308/24/2013 Inactive Influenza Virus Vaccine 0.5 mL RxNorm: IM 07/23/2013 07/23/2013 Inactive levofloxacin 500 mg tablet RxNorm: 264506 1 Tablet(s) PO daily 04/29/2013 05/03/2013 Inactive amitriptyline 10 mg tablet RxNorm: 327830 1 Tablet(s) PO qhs prn 1/2 to one tablet at bedtime if needed for bladder spasms 04/29/2013 08/20/2013 Inactive Cipro 250 mg tablet RxNorm: 768268 1 Tablet(s) PO BID 201204/23/2013 Inactive Levaquin 500 mg tablet RxNorm: 482263 1 Tablet(s) PO daily 07/201303/30/2013 Inactive Levaquin 500 mg tablet RxNorm: 287326 1 Tablet(s) PO daily 07/201303/23/2013 Inactive furosemide 20 mg tablet RxNorm: 430196 Tablet(s) PO TAKE 1 TABLET BY MOUTH ONCE DAILY. 03/13/2013 12/03/2013 Inactive furosemide 20 mg tablet RxNorm: 471881 Tablet(s) PO TAKE 1 TABLET BY MOUTH ONCE DAILY. 12/09/2012 03/12/2013 Inactive azithromycin 500 mg tablet RxNorm: 512892 1 Tablet(s) PO daily 11/05/2012 11/14/2012 Inactive rohan prieto Kenalog 40 mg/mL Susp for Injection RxNorm: 8994110 2 Milliliter(s) Inj 11/05/2012 11/05/2012 Inactive Cipro 500 mg tablet RxNorm: 010691 1 Tablet(s) PO BID 201102/05/2013 Inactive furosemide 20 mg tablet RxNorm: 831290 Tablet(s) PO 09/09/2012 12/08/2012 Inactive TAKE 1 TABLET BY MOUTH ONCE DAILY. Toprol XL 25 mg tablet,extended release RxNorm: 345515 1 Tablet(s) PO daily this will replace the coreg 08/26/20122012 Inactive Cipro 500 mg tablet RxNorm: 034764 1 Tablet(s) PO BID 201108/26/2012 Inactive Miralax 17 gram Oral Powder Packet RxNorm: 835920 1 PO daily 07/16/2012 Inactive Miralax 17 gram Oral Powder Packet RxNorm: 173525 1 PO daily 08/10/2013 Inactive furosemide 20 mg tablet RxNorm: 272921 Tablet(s) PO 06/10/2012 09/08/2012 Inactive TAKE 1 TABLET BY MOUTH ONCE DAILY. naproxen 500 mg tablet RxNorm: 153200 1 Tablet(s) PO 201105/08/2012 Inactive Cipro 250 mg tablet RxNorm: 547636 1 Tablet(s) PO BID Take 2 tabs BID today then 1 tab BID for the next 5 days 04/19/2012 04/25/2012 Inactive ketorolac 10 mg Tab RxNorm: 958139 1 Tablet(s) PO TID 201104/17/2012 Inactive ketorolac 60 mg/2 mL IM RxNorm: 286869 Milliliter(s) IM 201104/04/2012 Inactive ketorolac 10 mg Tab RxNorm: 920878 1 Tablet(s) PO TID 201104/10/2012 Inactive ciprofloxacin 500 mg Tab RxNorm: 425402 1 Tablet(s) PO BID 04/13/2012 Inactive ciprofloxacin 500 mg Tab RxNorm: 203170 1 Tablet(s) PO BID 04/03/2012 Inactive Coreg 3.125 mg Tab RxNorm: 253211 1 Tablet(s) PO BID 201108/25/2012 Inactive furosemide 20 mg tablet RxNorm: 055872 1 Tablet(s) PO daily 09/09/2011 Inactive Toprol XL 25 mg tablet,extended release RxNorm: 180799 1 Tablet(s) PO daily No Start Date 08/25/2012 Inactive Caltrate 600 + D oral RxNorm: 149481 oral No Start Date 11/02/2015 Inactive hydroxychloroquine 200 mg tablet RxNorm: 121944 1 Tablet(s) PO BID from dr duncan No Start Date 01/27/2014 Inactive Cipro 500 mg tablet RxNorm: 181659 1/2 Tablet(s) PO daily No Start Date 08/18/2013 Inactive Centrum Silver Ultra Women's Tab RxNorm: 1 Tablet(s) PO daily No Start Date 02/01/2016 Inactive Influenza Virus Vaccine 0.5 mL RxNorm: IM No Start Date 02/02/2016 Inactive hydrocodone 5 mg-acetaminophen 325 mg tablet RxNorm: 998814 1-2 Tablet(s) PO Q4- 6H as needed No Start Date 11/02/2015 Inactive prednisone 10 mg tablet RxNorm: 252989 Tablet(s) PO 60mg daily x 3 days, 40mg daily x 3 days, 20mg daily x 3 days, 10mg daily x 3 days, 5mg daily x 3 days, 5mg QOD x 1 week No Start Date 10/27/2013 Inactive Medication Administered Medication Codes Instructions Start Date Status Kenalog 40 mg/mL suspension for injection RxNorm: 2108189 1.5Milliliter 08/15/2017 No longer Active Kenalog 40 mg/mL suspension for injection RxNorm: 9926935 Milliliter 06/21/2016 No longer Active Kenalog 40 mg/mL suspension for injection RxNorm: 3607310 2MilliliterUD 09/17/2014 No longer Active Kenalog 40 mg/mL suspension for injection RxNorm: 7861494 Milliliter 08/03/2014 No longer Active Kenalog 40 mg/mL suspension for injection RxNorm: 7399806 1 /2Milliliter 04/27/2014 No longer Active Influenza Virus Vaccine 0.5 mL RxNorm: 07/23/2013 No longer Active Kenalog 40 mg/mL Susp for Injection RxNorm: 3893769 2Milliliter 11/05/2012 No longer Active ketorolac 60 mg/2 mL IM RxNorm: 723981 Milliliter 04/04/2012 No longer Active Immunizations Vaccine [...] hTSH II 2.26 uIU/mL 07/10/2017 Comp Metabolic Nzp047 NA 140 mEq/L 07/10/2017 Comp Metabolic Aij799 K 4.2 mEq/L 07/10/2017 Comp Metabolic Bug968 CL 106 mEq/L 07/10/2017 Comp Metabolic Upj810 CO2 26.0 mEq/L 07/10/2017 Comp Metabolic Hho313 ANION GAP 12 07/10/2017 Comp Metabolic Qqo858 GLUCOSE 89 mg/dL 07/10/2017 Comp Metabolic Yfd819 Creat 0.6 mg/dL 07/10/2017 Comp Metabolic Hfc028 eGFR 105 ml/min/1.73m2 07/10/2017 Comp Metabolic Fey118 BUN 9 mg/dL 07/10/2017 Comp Metabolic Nee296 B/C Ratio 15.0 Ratio 07/10/2017 Comp Metabolic Ykz171 CALCIUM 9.4 mg/dL 07/10/2017 Comp Metabolic Lvj280 ALK PHOS 90 U/L 07/10/2017 Comp Metabolic Cbt691 AST(SGOT) 15 U/L 07/10/2017 Comp Metabolic Opy013 ALT(SGPT) 14 U/L 07/10/2017 Comp Metabolic Owd803 BILI T 0.5 mg/dL 07/10/2017 Comp Metabolic Yvt218 ALBUMIN 4.0 g/dL 07/10/2017 Comp Metabolic Tvu218 TPRO 6.2 g/dL 07/10/2017 Comp Metabolic Vcp465 GLOB 2.2 g/dL 07/10/2017 Comp Metabolic Ztg878 A/G Ratio 1.8 Ratio 07/10/2017 Comp Metabolic Nko207 Osmo 278 mOsmo 07/10/2017 Cbc With Differential [...] 32.3 pg 07/10/2017 Cbc With Differential Ord2 [place]% 6.2 % 07/10/2017 Cbc With Differential Ord2 [...] 2.19 K/ul 07/10/2017 Cbc With Differential Ord2 [place] ABS# 0.5 K/ul 07/10/2017 Cbc With Differential Ord2 Eos ABS# 0.1 K/ul 07/10/2017 Cbc With Differential Ord2 Baso ABS# 0.0 K/ul 07/10/2017 Culture Urine [id number] URINE CULTURE SEE NOTES 02/05/2017 Urine Culture Ucult Complete >100,000 col/ml aerobic growth sent to ref lab 02/03/2017 Culture Urine [id number] URINE CULTURE SEE NOTES 12/18/2016 Culture Urine [id number] Continued Results 12/18/2016 Urine Culture Ucult Complete [...] 95.7 fl 02/03/2016 Cbc With Differential Ord2 [place]% 6.6 % 02/03/2016 Cbc With Differential Ord2 [...] 2.38 K/ul 02/03/2016 Cbc With Differential Ord2 [place] ABS# 0.5 K/ul 02/03/2016 Cbc With Differential Ord2 Eos ABS# 0.2 K/ul 02/03/2016 Cbc With Differential Ord2 Baso ABS# 0.0 K/ul 02/03/2016 Cbc With Differential Ord2 New Analyzer Notice Please note new ref ranges starting 10-27-2015 due to implemntation of new five part differential hematolgy analyzer. 02/03/2016 Comp Metabolic Cxa029 NA 136 mEq/L 02/03/2016 Comp Metabolic Hps887 K 4.0 mEq/L 02/03/2016 Comp Metabolic Dwi993 CL 102 mEq/L 02/03/2016 Comp Metabolic Dxe746 CO2 28.0 mEq/L 02/03/2016 Comp Metabolic Imu525 ANION GAP 10 02/03/2016 Comp Metabolic Blu347 GLUCOSE 85 mg/dL 02/03/2016 Comp Metabolic Fkx359 Creat 0.7 mg/dL 02/03/2016 Comp Metabolic Iar061 eGFR 88 ml/min/1.73m2 02/03/2016 Comp Metabolic Thr666 BUN 15 mg/dL 02/03/2016 Comp Metabolic Iug313 B/C Ratio 21.4 Ratio 02/03/2016 Comp Metabolic Iqb535 CALCIUM 9.2 mg/dL 02/03/2016 Comp Metabolic Nep552 ALK PHOS 81 U/L 02/03/2016 Comp Metabolic Fbs743 AST(SGOT) 19 U/L 02/03/2016 Comp Metabolic Gur217 ALT(SGPT) 22 U/L 02/03/2016 Comp Metabolic Hpt482 BILI T 0.5 mg/dL 02/03/2016 Comp Metabolic Lhp052 ALBUMIN 4.1 g/dL 02/03/2016 Comp Metabolic Mzz734 TPRO 6.4 g/dL 02/03/2016 Comp Metabolic Uek175 GLOB 2.3 g/dL 02/03/2016 Comp Metabolic Unh018 A/G Ratio 1.8 Ratio 02/03/2016 Comp Metabolic Bib930 Osmo 272 mOsmo 02/03/2016 Tsh Ord6 hTSH II 1.61 uIU/mL 02/03/2016 CRP 8946192 CRP 1.8 MG/DL 08/21/2013 GFR CALC 7932481 GFR AA >60 ML/MIN 08/21/2013 GFR CALC 3291824 GFR NON-AA >60 ML/MIN 08/21/2013 CBC 6690928 WBC 9.0 10e9/L 08/21/2013 CBC 7199463 RBC 4.68 10e12/L 08/21/2013 CBC 2041881 HGB 15.0 g/dL 08/21/2013 CBC 8699792 HCT DET 43.8 % 08/21/2013 CBC 0288317 MCV 93.6 fL 08/21/2013 CBC 8166900 MCH 32.1 pg 08/21/2013 CBC 8872280 MCHC 34.2 g/dL 08/21/2013 CBC 6091540 PLT 267 10e9/L 08/21/2013 CBC 0965964 MPV 9.0 fL 08/21/2013 CBC 9245359 MARGE % 67.8 % 08/21/2013 CBC 4828971 LY % 24.8 % 08/21/2013 CBC 8989030 MON % 6.2 % 08/21/2013 CBC 4316360 EOS % 1.0 % 08/21/2013 CBC 5490129 BASO % 0.2 % 08/21/2013 CBC 8581579 RDW 13.1 % 08/21/2013 CBC 4006049 ABS MARGE 6.10 10e9/L 08/21/2013 CBC 5324711 ABS LYMPH 2.23 10e9/L 08/21/2013 CBC 4733135 ABS MONO 0.56 10e9/L 08/21/2013 CBC 1972006 ABS EOS 0.09 10e9/L 08/21/2013 CBC 0567996 ABS BASO 0.02 10e9/L 08/21/2013 CBC 2311209 RDW-SD 43.9 fL 08/21/2013 TSH 7130022 TSH 1.898 uIU/ML 08/21/2013 MAGNESIUM 3410946 MAGNESIUM 1.7 MEQ/L 08/21/2013 CHEM 14 4365368 AST 16 U/L 08/21/2013 CHEM 14 8082315 ALT 15 IU/L 08/21/2013 CHEM 14 2543746 BUN 14 MG/DL 08/21/2013 CHEM 14 8193539 ALBUMIN 4.4 GM/DL 08/21/2013 CHEM 14 7487471 CHLORIDE 103 MMOL/L 08/21/2013 CHEM 14 8242705 BILI TOT 0.6 MG/DL 08/21/2013 CHEM 14 1493999 ALK PHOS 80 U/L 08/21/2013 CHEM 14 3905764 SODIUM 138 MMOL/L 08/21/2013 CHEM 14 6035432 CREATININE 0.76 MG/DL 08/21/2013 CHEM 14 5672237 CALCIUM 10.2 MG/DL 08/21/2013 CHEM 14 2806195 POTASSIUM 4.0 MMOL/L 08/21/2013 CHEM 14 4423808 PROT TOT 7.0 GM/DL 08/21/2013 CHEM 14 5393372 GLUCOSE 95 MG/DL 08/21/2013 CHEM 14 5138430 BICARB 29 MMOL/L 08/21/2013 CHEM 14 3179668 ANION GAP 6 MEQ/L 08/21/2013 URINALYSIS NONAUTO W/O SCOPE 21046 Specific [place] 1.020 DateTime(Free Text in Aprima) URINALYSIS NONAUTO W/O SCOPE 18465 PH 5.0 DateTime(Free Text in Aprima) URINALYSIS NONAUTO W/O SCOPE 97536 GLUCOSE Negative DateTime(Free Text in Aprima) URINALYSIS NONAUTO W/O SCOPE 81074 Protein Negative DateTime(Free Text in Aprima) URINALYSIS NONAUTO W/O SCOPE 26203 Blood Mod. Blood DateTime( Free Text in Aprima) URINALYSIS NONAUTO W/O SCOPE 93027 Bilirubin Negative DateTime(Free Text in Aprima) URINALYSIS NONAUTO W/O SCOPE 83975 Ketones Negative DateTime(Free Text in Aprima) URINALYSIS NONAUTO W/O SCOPE 03039 Urobilinogen Negative DateTime(Free Text in Aprima) URINALYSIS NONAUTO W/O SCOPE 27055 Nitrite Negative DateTime(Free Text in Aprima) URINALYSIS NONAUTO W/O SCOPE 83657 Leukocytes Negative DateTime(Free Text in Aprima) URINALYSIS NONAUTO W/O SCOPE 33708 Specific [place] 1.010 DateTime(Free Text in Aprima) URINALYSIS NONAUTO W/O SCOPE 05462 PH 6.0 DateTime(Free Text in Aprima) URINALYSIS NONAUTO W/O SCOPE 05211 GLUCOSE neg DateTime( Free Text in Aprima) URINALYSIS NONAUTO W/O SCOPE 69590 Protein neg DateTime( Free Text in Aprima) URINALYSIS NONAUTO W/O SCOPE 07865 Blood 1+ DateTime(Free Text in Aprima) URINALYSIS NONAUTO W/O SCOPE 96554 Bilirubin neg DateTime(Free Text in Aprima) URINALYSIS NONAUTO W/O SCOPE 83551 Ketones neg DateTime( Free Text in Aprima) URINALYSIS NONAUTO W/O SCOPE 31427 Urobilinogen neg DateTime(Free Text in Aprima) URINALYSIS NONAUTO W/O SCOPE 27700 Nitrite neg DateTime( Free Text in Aprima) URINALYSIS NONAUTO W/O SCOPE 63635 Leukocytes 1+ DateTime(Free Text in Aprima) UA 67579 Specific [place] 1.005 DateTime(Free Text in Aprima ) UA 01273 PH 5 DateTime(Free Text in Aprima) UA 25690 GLUCOSE neg DateTime(Free Text in Aprima) UA 13611 Protein neg DateTime(Free Text in Aprima) UA 42443 Blood 1+ DateTime(Free Text in Aprima) UA 10155 Bilirubin neg DateTime(Free Text in Aprima) UA 73117 Ketones neg DateTime(Free Text in Aprima) UA 77720 Urobilinogen neg DateTime(Free Text in Aprima) UA 18798 Nitrite neg DateTime(Free Text in Aprima) UA 52398 Leukocytes 1+ DateTime(Free Text in Aprima) UA 94936 Specific [place] 1.005 DateTime(Free Text in Aprima ) UA 63308 PH 6.0 DateTime(Free Text in Apr) UA 60999 GLUCOSE neg DateTime(Free Text in Aprima) UA 73774 Protein neg DateTime(Free Text in Aprima) UA 30779 Blood 1+ DateTime(Free Text in Aprima) UA 12969 Bilirubin neg DateTime(Free Text in Aprima) UA 34360 Ketones neg DateTime(Free Text in Aprima) UA 14673 Urobilinogen neg DateTime(Free Text in Aprima) UA 82683 Nitrite neg DateTime(Free Text in Aprima) UA 53992 Leukocytes neg DateTime(Free Text in Apr) Review [...] G0008 06/18/2018 ADMIN PNEUMOCOCCAL VACCINE SNOMED CT: 35255972 CPT-4: G0009 06/18/2018 PNEUMOCOCCAL VACC [address]: 92262894 CPT-4: 72737 06/18/2018 FLU VAC NO PRSV 4 DONTE 3 YRS+ Formatting Model/CDA Sections, Assigned to/Abigail Mancia CPT-4: 55567Gdcungw 06/18/2018 PPPS, SUBSEQ VISIT CPT -4: G0439 08/22/2017 THER/PROPH/DIAG INJ SC/IM CPT-4: 59588 08/15/2017 TRIAMCINOLONE ACET INJ NOS CPT-4: J3301 08/15/2017 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 3-[address]: 132463563 CPT-4: G0436 12/12/2016 URINALYSIS NONAUTO W/O SCOPE CPT-4: 57083 12/12/2016 ADMIN INFLUENZA VIRUS VAC CPT-4: G0008 07/19/2016 FLU VACC 4 DONTE 3 YRS PLUS IM Formatting Model/CDA Sections, Assigned to/Abigail Mancia SNOMED CT: 51143148 CPT-4: 95216Yqlvahp 07/19/2016 TRIAMCINOLONE ACET INJ NOS CPT-4: J3301 06/21/2016 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 3-[address]: 794860943 CPT-4: G0436 02/02/2016 ADMIN INFLUENZA VIRUS VAC CPT-4: G0008 08/25/2015 FLU VACC PRSV FREE INC ANTIG Formatting Model/CDA Sections, Assigned to/Abigail Mancia CPT-4: 32661Cwadslt 08/25/2015 BIOPSY SKIN LESION CPT -4: 40782 02/02/2015 TRIAMCINOLONE ACET INJ NOS CPT-4: J3301 09/15/2014 DRAIN/INJECT JOINT/BURSA CPT-4: 83114 09/15/2014 TRIAMCINOLONE ACET INJ NOS CPT-4: J3301 08/03/2014 ADMIN INFLUENZA VIRUS VAC CPT-4: G0008 06/29/2014 FLU VAC NO PRSV 4 DONTE 3 YRS+ Assigned to/Abigail Mancia CPT-4: 30296Hbebcjg 06/29/2014 TRIAMCINOLONE ACET INJ NOS CPT-4: J3301 04/27/2014 ROUTINE VENIPUNCTURE CPT-4: 54336 08/21/2013 URINALYSIS NONAUTO W/O SCOPE CPT-4: 24404 08/18/2013 PRESCRIP TRANSMIT VIA ERX SY CPT-4: G8553 08/18/2013 ADMIN PNEUMOCOCCAL VACCINE SNOMED CT: 28004171 CPT-4: G0009 07/31/2013 Pneumococcal Polysaccharide Vaccine, 23-Valent, Ad CPT-4: 09262 07/31/2013 ADMIN INFLUENZA VIRUS VAC CPT-4: G0008 07/23/2013 FLULAVAL VACC, 3 YRS & >, IM CPT-4: Q2036 07/23/2013 PRESCRIP TRANSMIT VIA ERX SY CPT-4: G8553 04/29/2013 URINALYSIS NONAUTO W/O SCOPE CPT-4: 44553 04/14/2013 URINALYSIS NONAUTO W/O SCOPE CPT-4: 67290 03/24/2013 REMOVAL OF SKIN TAGS <W/15 CPT-4: 73160 02/06/2013 TRIAMCINOLONE ACET INJ NOS CPT-4: J3301 11/05/2012 THER/PROPH/DIAG INJ SC/IM CPT-4: 51543 11/05/2012 PRESCRIP TRANSMIT VIA ERX SY CPT-4: G8553 11/05/2012 URINALYSIS NONAUTO W/O SCOPE CPT-4: 25418 10/31/2012 URINALYSIS NONAUTO W/O SCOPE CPT-4: 71291 09/25/2012 PRESCRIP TRANSMIT VIA ERX SY CPT-4: G8553 09/25/2012 URINALYSIS NONAUTO W/O SCOPE CPT-4: 61705 08/20/2012 PRESCRIP TRANSMIT VIA ERX SY CPT-4: G8553 08/20/2012 ADMIN INFLUENZA VIRUS VAC CPT-4: G0008 07/01/2012 FLULAVAL VACC, 3 YRS & >, IM CPT-4: Q2036 07/01/2012 URINALYSIS NONAUTO W/O SCOPE CPT-4: 39050 04/19/2012 KETOROLAC TROMETHAMINE INJ CPT-4: J1885 04/04/2012 PRESCRIP TRANSMIT VIA ERX SY CPT-4: G8553 04/04/2012 PRESCRIP TRANSMIT VIA ERX SY CPT-4: G8553 04/01/2012 Vital Signs Date Vital 10/14/2018 Blood Pressure 1: 140/80 Code : 8480-6 BMI: 24.7 Code : 13470-6 Heart Rate 1 : 59 bpm Height: 5'8" SpO2: 97% Weight: 162 lbs 2 oz 09/02/2018 Blood Pressure 1: 140/76 Code : 8480-6 BMI: 21.9 Code : 92934-4 Heart Rate 1 : 56 bpm Height: 5'8" SpO2: 97% Waist Measure (cm): 94 cm Weight: 144 lbs 05/21/2018 Blood Pressure 1: 136/80 Code : 8480-6 BMI: 24.6 Code : 28016-8 Heart Rate 1 : 57 bpm Height: 5'8" SpO2: 96% Weight: 162 lbs 03/04/2018 Blood Pressure 1: 160/82 Code : 8480-6 BMI: 24.3 Code : 86452-2 Heart Rate 1 : 67 bpm Height: 5'8" SpO2: 99% Temperature: 36.6 (C) / 97.9 (F) Weight: 160 lbs 01/22/2018 Blood Pressure 1: 132/84 Code : 8480-6 BMI: 24.2 Code : 32510-0 Heart Rate 1 : 64 bpm Height: 5'8" SpO2: 95% Weight: 159 lbs 10/22/2017 Blood Pressure 1: 152/78 Code : 8480-6 BMI: 24.0 Code : 05076-9 Heart Rate 1 : 68 bpm Height: 5'8" SpO2: 97% Weight: 158 lbs 08/22/2017 BMI: 24.8 Code: 39565-9 Height: 5'8" Weight: 163 lbs 08/15/2017 Blood Pressure 1: 140/74 Code : 8480-6 Heart Rate 1: 75 bpm Height: 5'8" SpO2: 96% Weight: 06/19/2017 Blood Pressure 1: 146/62 Code : 8480-6 BMI: 25.7 Code : 10633-9 Heart Rate 1 : 64 bpm Height: 5'8" SpO2: 96% Weight: 169 lbs 02/13/2017 Blood Pressure 1: 150/78 Code : 8480-6 BMI: 27.2 Code : 72475-3 Heart Rate 1 : 70 bpm Height: 5'8" SpO2: 96% Weight: 179 lbs 02/05/2017 Blood Pressure 1: 146/74 Code : 8480-6 BMI: 26.9 Code : 14806-2 Heart Rate 1 : 70 bpm Height: 5'8" SpO2: 96% Weight: 177 lbs 02/02/2017 Blood Pressure 1: 124/62 Code : 8480-6 BMI: 26.9 Code : 01821-7 Heart Rate 1 : 54 bpm Height: 5'8" SpO2: 94% Weight: 177 lbs 12/12/2016 Blood Pressure 1: 130/72 Code : 8480-6 BMI: 27.1 Code : 96614-6 Heart Rate 1 : 82 bpm Height: 5'8" SpO2: 95% Weight: 178 lbs 8 oz 06/21/2016 Blood Pressure 1: 136/74 Code : 8480-6 BMI: 25.8 Code : 53296-3 Heart Rate 1 : 86 bpm Height: 5'8" SpO2: 98% Weight: 170 lbs 05/24/2016 Blood Pressure 1: 132/80 Code : 8480-6 BMI: 25.7 Code : 06413-5 Heart Rate 1 : 67 bpm Height: 5'8" SpO2: 96% Weight: 169 lbs 02/02/2016 Blood Pressure 1: 138/80 Code : 8480-6 BMI: 25.8 Code : 02342-7 Heart Rate 1 : 67 bpm Height: 5'8" SpO2: 94% Weight: 170 lbs 11/03/2015 Blood Pressure 1: 138/82 Code : 8480-6 BMI: 26.0 Code : 44692-5 Heart Rate 1 : 80 bpm Height: 5'8" SpO2: 92% Weight: 171 lbs 02/02/2015 Blood Pressure 1: 136/88 Code : 8480-6 BMI: 26.6 Code : 52379-8 Heart Rate 1 : 67 bpm Height: 5'8" SpO2: 97% Temperature: 37.2 (C) / 98.9 (F) Weight: 175 lbs 01/25/2015 Blood Pressure 1: 150/92 Code : 8480-6 BMI: 26.6 Code : 62933-5 Heart Rate 1 : 79 bpm Height: 5'8" SpO2: 98% Weight: 175 lbs 11/26/2014 Blood Pressure 1: 148/92 Code : 8480-6 Blood Pressure 2: 142/92 Code: 8480-6 BMI: 26.5 Code: 61568-1 Heart Rate 1: 68 bpm Height: 5'8" Weight: 174 lbs 09/15/2014 Blood Pressure 1: 150/84 Code : 8480-6 BMI: 26.5 Code : 01657-1 Heart Rate 1 : 80 bpm Height: 5'8" Weight: 174 lbs 08/13/2014 Blood Pressure 1: 140/84 Code : 8480-6 Heart Rate 1: 82 bpm Height: Weight: 08/03/2014 Blood Pressure 1: 142/76 Code : 8480-6 BMI: 26.3 Code : 63139-4 Heart Rate 1 : 80 bpm Height: 5'8" Weight: 173 lbs 07/23/2014 Blood Pressure 1: 148/80 Code : 8480-6 Heart Rate 1: 76 bpm Weight: 175 lbs 06/29/2014 Blood Pressure 1: 140/82 Code : 8480-6 BMI: 26.5 Code : 91399-3 Heart Rate 1 : 60 bpm Height: 5'8" Weight: 174 lbs 04/27/2014 Blood Pressure 1: 112/70 Code : 8480-6 BMI: 26.5 Code : 54499-1 Heart Rate 1 : 72 bpm Height: 5'8" SpO2: 98% Weight: 174 lbs 01/28/2014 Blood Pressure 1: 134/80 Code : 8480-6 BMI: 26.6 Code : 12420-7 Heart Rate 1 : 72 bpm Height: 5'8" Weight: 175 lbs 01/05/2014 Blood Pressure 1: 142/86 Code : 8480-6 BMI: 27.2 Code : 14611-6 Heart Rate 1 : 78 bpm Height: 5'8" Weight: 179 lbs 11/17/2013 Blood Pressure 1: 118/62 Code : 8480-6 BMI: 27.1 Code : 81069-5 Heart Rate 1 : 76 bpm Height: 5'8" Weight: 178 lbs 08/27/2013 Blood Pressure 1: 126/80 Code : 8480-6 BMI: 26.6 Code : 29677-3 Heart Rate 1 : 72 bpm Height: [...] Code : 8480-6 BMI: 26.5 Code : 97973-0 Heart Rate 1 : 72 bpm Height: 5'8" Weight: 174 lbs 8 oz 03/24/2013 Blood Pressure 1: 112/78 Code : 8480-6 BMI: 26.2 Code : 05610-6 Heart Rate 1 : 72 bpm Height: [...] data Encounters Encounter Performer Location Codes Date ([id number]) 96521 EST. PATIENT, LEVEL III Diagnosis: Diverticulitis of large intestine without perforation or abscess without bleeding[ICD10: K57.32] [facility] CPT-4: 71737 10/14/2018 ([id number]) 62453 EST. PATIENT, LEVEL IV Diagnosis: Essential (primary) hypertension[ICD10: I10] Diagnosis: Tobacco use[ICD10: Z72.0] Diagnosis: Functional diarrhea[ICD10: K59.1] Tessa George MD, [facility] CPT-4: 92718 05/21/2018 ([id number]) 25476 EST. PATIENT, LEVEL III Diagnosis: Insect bite (nonvenomous) of abdominal wall, initial encounter[ICD10 : S30.861A] Tessa George MD, [facility] CPT-4: 76275 ([id number]) 76219 EST. PATIENT, LEVEL IV Diagnosis: Essential (primary) hypertension[ICD10: I10] Diagnosis: Tobacco use[ICD10: Z72.0] Diagnosis: Functional diarrhea[ICD10: K59.1] Tessa George MD, [facility] CPT-4: 46610 01/22/2018 ([id number]) 95895 EST. PATIENT, LEVEL III Diagnosis: Essential (primary) hypertension[ICD10: I10] Diagnosis: Functional diarrhea[ICD10: K59.1] Tessa George MD, [facility] CPT-4: 89640 10/22/2017 45345 EST. PATIENT, LEVEL III Diagnosis: Rash and other nonspecific skin eruption[ICD10: R21] Brooke George MD, [facility] CPT-4: 64685 08/15/2017 ([id number]) 99184 EST. PATIENT, LEVEL IV Diagnosis: Essential (primary) hypertension[ICD10: I10] Diagnosis: Functional diarrhea[ICD10: K59.1] Diagnosis: Epigastric pain[ICD10: R10.13] Tessa George MD, [facility] CPT- 4: 87842 06/19/2017 ([id number]) 32397 EST. PATIENT, LEVEL IV Diagnosis: Essential (primary) hypertension[ICD10: I10] Diagnosis: Epigastric pain[ICD10: R10.13] Tessa George MD, [facility] CPT- 4: 96282 02/13/2017 23849 EST. PATIENT, LEVEL IV Diagnosis: Low back pain[ICD10: M54.5] Brooke George MD, [facility] CPT-4 : 68076 02/05/2017 86929 EST. PATIENT, LEVEL IV Diagnosis: Dysuria[ICD10: R30.0] Diagnosis: Low back pain[ICD10: M54.5] Brooke George MD [facility] CPT-4 : 68271 02/02/2017 ([id number]) 46211 EST. PATIENT, LEVEL IV Diagnosis: Essential (primary) hypertension[ICD10: I10] Diagnosis: Dysuria[ICD10: R30.0] Diagnosis: Tobacco use[ICD10: Z72.0] Tessa George MD, [facility] CPT-4: 45399 12/12/2016 84818 EST. PATIENT, LEVEL IV Diagnosis: Other acute sinusitis[ICD10: J01.80] Diagnosis: Other allergic rhinitis[ICD10: J30.89] Brooke George MD, [facility] CPT-4: 35119 06/21/2016 ([id number]) 02433 EST. PATIENT, LEVEL III Diagnosis: Essential (primary) hypertension[ICD10: I10] Diagnosis: Major depressive disorder, single episode, unspecified[ICD10: F32.9] Tessa George MD, [facility] CPT-4: 68095 05/24/2016 ([id number]) 55164 EST. PATIENT, LEVEL IV Diagnosis: Essential (primary) hypertension[ICD10: I10] Diagnosis: Major depressive disorder, single episode, unspecified[ICD10: F32.9] Diagnosis: Tobacco use[ICD10: Z72.0] Tessa George MD, [facility] CPT-4: 21275 02/02/2016 ([id number]) 79221 EST. PATIENT, LEVEL IV Diagnosis: Essential (primary) hypertension[ICD10: I10] Diagnosis: Polymyalgia rheumatica[ICD10: M35.3] Diagnosis: Major depressive disorder, single episode, unspecified[ICD10: F32.9] Tessa George MD, [facility] CPT-4: 17193 11/03/2015 ([id number]) Miscellaneous no charge Diagnosis: Hyperpigmented skin lesion[ICD9: 709.00] Tessa George MD, [facility] CPT-4: 59070 02/12/2015 ([id number]) 50685 EST. PATIENT, LEVEL IV Diagnosis: ESSENTIAL HYPERTENSION[ICD9: 401.9] Diagnosis: DEPRESSIVE DISORDER NEC[ICD9: 311] Diagnosis: POLYMYALGIA RHEUMATICA[ICD9: 725] Tessa George MD, [facility] CPT-4: 44646 01/25/2015 ([id number]) 62765 EST. PATIENT, LEVEL IV Diagnosis: ESSENTIAL HYPERTENSION[ICD9: 401.9] Diagnosis: Polymyalgia rheumatica syndrome[ICD9: 725] Diagnosis: Smoking[ICD9: 305.1] Tessa George MD, [facility] CPT-4: 11177 11/26/2014 ([id number]) 17244 EST. PATIENT, LEVEL III Diagnosis: ESSENTIAL HYPERTENSION[ICD9: 401.9] Diagnosis: Sacroiliitis[ICD9: 720.2] Tessa George MD, [facility] CPT-4: 81813 09/15/2014 ([id number]) 92368 EST. PATIENT, LEVEL III Diagnosis: Hip pain[ICD9: 719.45] Diagnosis: Sacroiliac pain[ICD9: 724.6] Tessa George MD, [facility] CPT- 4: 37965 08/13/2014 ([id number]) 25346 EST. PATIENT, LEVEL III Diagnosis: ACUTE SINUSITIS[ICD9: 461.9] Diagnosis: ALLERGIC RHINITIS[ICD9: 477.9] Aviva George MD, [facility] CPT-4: 72822 08/03/2014 [id number]) 88172 EST. PATIENT, LEVEL IV Diagnosis: ESSENTIAL HYPERTENSION[ICD9: 401.9] Diagnosis: DEPRESSIVE DISORDER NEC[ICD9: 311] Diagnosis: POLYMYALGIA RHEUMATICA[ICD9: 725] [facility] CPT-4: 41115 07/23/2014 [id number]) 11636 EST. PATIENT, LEVEL IV Diagnosis: ESSENTIAL HYPERTENSION[ICD9: 401.9] Diagnosis: DEPRESSIVE DISORDER NEC[ICD9: 311] Diagnosis: POLYMYALGIA RHEUMATICA[ICD9: 725] Diagnosis: VACCIN FOR INFLUENZA[ICD10: Z23] [facility] CPT-4: 19320 06/29/2014 ([id number]) 57680 EST. PATIENT, LEVEL III Diagnosis: ACUTE MAXILLARY SINUSITIS[ICD9: 461.0] Diagnosis: BPPV (benign paroxysmal positional vertigo)[ICD9: 386.11] Aviva George MD , [facility] CPT-4: 75942 04/27/2014 ([id number]) 89408 EST. PATIENT, LEVEL III Diagnosis: ESSENTIAL HYPERTENSION[SNOMED: 04828805] Diagnosis: Fatigue[ICD9: 780.79] Diagnosis: DEPRESSIVE DISORDER NEC[ICD9: 311] Tessa George MD, [facility] CPT-4: 64409 01/28/2014 ([id number]) 58507 EST. PATIENT, LEVEL III Diagnosis: ESSENTIAL HYPERTENSION[SNOMED: 33666516] Diagnosis: Blurry vision, bilateral[ICD9: 368.8] Tessa George MD, [facility] CPT-4: 72703 01/05/2014 ([id number]) 84953 EST. PATIENT, LEVEL IV Diagnosis: POLYMYALGIA RHEUMATICA[ICD9: 725] Diagnosis: PAIN IN LIMB[ICD9: 729.5] Diagnosis: ESSENTIAL HYPERTENSION[SNOMED: 25513401] Tessa George MD, [facility] CPT-4: 63213 11/17/2013 ([id number]) 00944 EST. PATIENT, LEVEL III Diagnosis: Polymyalgia rheumatica syndrome[ICD9: 725] Tessa George MD, [facility] CPT-4: 36123 08/27/2013 ([id number]) 94415 EST. PATIENT, LEVEL III Diagnosis: ESSENTIAL HYPERTENSION[SNOMED: 38666173] Diagnosis: Fatigue[ICD9: 780.79] Tessa George MD, [facility] CPT-4: 40781 08/21/2013 ([id number]) 84864 EST. PATIENT, LEVEL III Diagnosis: Urinary tract infection[ICD9: 599.0] Diagnosis: ESSENTIAL HYPERTENSION[SNOMED: 52822909] Aviva George MD, [facility] CPT-4: 66118 08/18/2013 ([id number]) 47896 EST. PATIENT, LEVEL IV Diagnosis: ESSENTIAL HYPERTENSION[SNOMED: 85159904] Diagnosis: HEMATURIA NOS[ICD9: 599.70] Diagnosis: CHRONIC INTERSTITIAL CYSTITIS[ICD9: 595.1] Tessa George MD [facility] CPT-4: 70807 04/29/2013 ([id number]) 96743 EST. PATIENT, LEVEL III Diagnosis: Recurrent urinary tract infection[ICD9: 599.0] Diagnosis: DYSURIA[ICD9: 788.1] Tessa George MD [facility] CPT-4: 63158 03/24/2013 ([id number]) 10061 EST. PATIENT, LEVEL IV Diagnosis: ESSENTIAL HYPERTENSION[SNOMED: 00969966] Diagnosis: HYPERLIPIDEMIA[ICD9: 272.4] Diagnosis: Irritated nevus of neck[ICD9: 216.4] Tessa George MD [facility] CPT-4: 17139 02/06/2013 ([id number]) 07431 EST. PATIENT, LEVEL III Diagnosis: ACUTE MAXILLARY SINUSITIS[ICD9: 461.0] Diagnosis: ACUTE URI[ICD9: 465.9] Diagnosis: COUGH[ICD9: 786.2] Tessa George MD [facility] CPT-4: 78139 11/05/2012 ([id number]) 46104 EST. PATIENT, LEVEL III Diagnosis: ESSENTIAL HYPERTENSION[SNOMED: 53154087] Diagnosis: ILL-DEFINE CONDITION NEC[ICD9: 799.89] Tessa George MD [facility] CPT-4: 53513 10/31/2012 ([id number]) 36038 EST. PATIENT, LEVEL III Diagnosis: ESSENTIAL HYPERTENSION[SNOMED: 29527747] Tessa George MD [facility] CPT-4: 04991 09/03/2012 ([id number]) 57155 EST. PATIENT, LEVEL III Diagnosis: UTI[ICD9: 599.0] Diagnosis: Microscopic hematuria[ICD9: 599.72] Diagnosis: ESSENTIAL HYPERTENSION[SNOMED: 62568542] Tessa George MD [facility] CPT-4: 99199 08/20/2012 ([id number]) 19115 EST. PATIENT, LEVEL IV Diagnosis: Constipation - functional[ICD9: 564.09] Diagnosis: Abdominal pain[ICD9: 789.00] Tessa George MD [facility] CPT- 4: 79502 07/16/2012 ([id number]) 59728 EST. PATIENT, LEVEL IV Diagnosis: ESSENTIAL HYPERTENSION[SNOMED: 61974135] Diagnosis: Fatigue[ICD9: 780.79] Diagnosis: Constipation - functional[ICD9: 564.09] Tessa George MD [facility] CPT-4: 86557 07/01/2012 ([id number]) 28372 EST. PATIENT, LEVEL III Diagnosis: ESSENTIAL HYPERTENSION[SNOMED: 76683328] Diagnosis: HEADACHE[ICD9: 784.0] Tessa George MD [facility] CPT-4: 33346 05/08/2012 59769 EST. PATIENT, LEVEL IV Diagnosis: Urinary tract infection[ICD9: 599.0] Diagnosis: ESSENTIAL HYPERTENSION[SNOMED: 88896789] Diagnosis: Fatigue[ICD9: 780.79] Tessa George MD [facility] CPT-4: 91477 04/19/2012 ([id number]) 23847 EST. PATIENT, LEVEL IV Diagnosis: ESSENTIAL HYPERTENSION[SNOMED: 22019131] Diagnosis: Mouth dryness[ICD9: 527.7] Diagnosis: HEADACHE[ICD9: 784.0] Diagnosis: CERVICALGIA[ICD9: 723.1] Tessa George MD [facility] CPT-4: 58102 04/15/2012 ([id number]) 54157 EST. PATIENT, LEVEL IV Diagnosis: Urinary tract infection[ICD9: 599.0] Diagnosis: Generally unwell[ICD9: 799.89] Diagnosis: ESSENTIAL HYPERTENSION[SNOMED: 30724718] Diagnosis: MYALGIA AND MYOSITIS[ICD9: 729.1] Tessa George MD [facility] CPT-4: 95668 04/04/2012 ([id number]) 27747 EST. PATIENT, LEVEL IV Diagnosis: ESSENTIAL HYPERTENSION[SNOMED: 74413402] Diagnosis: Unsteady gait[ICD9: 781.2] Diagnosis: Neck pain[ICD9: 723.1] Tessa George MD [facility] CPT-4: 60109 04/01/2012 ([id number]) Patient admitted to the hospital from clinic (NO CHARGE) Diagnosis: Pericardial rub[ICD9: 785.3] Diagnosis: ESSENTIAL HYPERTENSION[SNOMED: 37333498] Diagnosis: HEADACHE[ICD9: 784.0] Diagnosis: Arm pain[ICD9: 729.5] Aviva George MD, [facility] CPT-4: 27648M 03/20/2012 Plan of Care Planned Activity Notes [...] better by sunday10/14/2018 Appointment: Tessa George WPtel: [facility]1 [facility] (15 min) Moderate 10/14/2018 Patient Education: Patient Medication Summary Completed 10/14/2018 Appointment: Tessa George WPtel: [facility]1 [facility] (15 min) Moderate 09/24/2018 Visit Plan: [...] care surrogate. 09/02/2018 Appointment: Brooke Dominguez WPtel: [facility]2 [facility] [facility] - Annual Wellness Visit 09/02/2018 Patient Education: [...] monitor symptoms. 05/21/2018 Appointment: Tessa George WPtel: [facility]4 [facility] (15 min) Moderate 05/21/2018 Patient Education: Patient Medication Summary Completed 05/21/2018 Visit Plan: tick bite - rx for doxycycline - and use benadryl cream on the tick bites to help decrease itching 03/04/2018 Appointment: Tessa George WPtel: [facility]9 [facility] (15 min) Moderate 03/04/2018 Patient [...] cessation strategies. 01/22/2018 Appointment: Tessa George WPtel: [facility]8 [facility] (15 min) Moderate 01/22/2018 Patient Education: [...] not resolved. 10/22/2017 Appointment: Tessa George WPtel: [facility]2 [facility] (15 min) Moderate 10/22/2017 Patient Education: Patient [...] prednisone taper. 08/15/2017 App[facility]ment[facility] ([facility] min) Complex 08/15/2017 Patient Education: [...] home. 06/19/2017 [facility]ment[facility] (15 min) Moderate 06/19/2017 Patient Education: [...] abdomen 02/13/2017 Appointment: [facility]el[facility] [place] (15 min) Moderate 02/13/2017 Patient [...] improve. 02/05/2017 Appointment: [facility] [place] (15 min) Moderate 02/05/2017 Patient [...] improve. 02/02/2017 Appointment: Brooke Dominguez WPtel: [phone] [facility] [place] (15 min) Moderate 02/02/2017 Patient Education: [...] of stopping. 12/12/2016 Appointment: Tessa George WPtel: [phone] [facility] (15 min) Moderate 12/12/2016 Patient Education: [...] allergy spray. 06/21/2016 Appointment: Aviva Patton [facility]Ptel[facility] (15 min) Moderate 06/21/2016 Patient Education: Patient [...] weeks. 02/02/2015 Appointment: [facility]el[facility] [facility] [facility] 02/02/2015 Patient Education: Patient [...] smoker. 11/26/2014 Appointment: [facility]Ptel[facility] [facility] Follow up 11/26/2014 Patient Education: Patient [...] at home. 09/15/2014 Appointment: [facility]Ptel[facility] [facility] [place] Follow up 09/15/2014 Patient Education: Patient Medication Summary Completed 09/15/2014 Visit Plan: Hip pain - stat xray right hip - antiinflammatories. Pt to use heat to hip, monitor symptoms - and pt to call if not improving, pt to be called with hip xray report. 08/13/2014 Appointment: Tessa George WPtel: [address] [facility] [place] [address] 08/13/2014 Patient Education: Patient Medication Summary Completed [...] 60mg daily. 07/23/2014 Appointment: Tessa George WPtel: [phone] [facility] Follow up 07/23/2014 Patient Education: Patient [...] today 06/29/2014 Appointment: [facility]Ptel[facility] [facility] Follow up 06/29/2014 Patient Education: Patient [...] cymbalta. 01/28/2014 Appointment: [facility]Ptel[facility] [facility] Follow up 01/28/2014 Patient Education: Patient [...] Dr. Benites. 01/05/2014 Appointment: Tessa George WPtel: [facility]5 [facility] Follow up 01/05/2014 Patient Education: Patient Medication Summary Completed 01/05/2014 Patient Education: Hypertension Completed 01/05/2014 Appointment: Tessa George WPtel: [address] [place], [place] [phone] Follow up 11/27/2013 Visit Plan: Hypertension - [...] for pain 11/17/2013 Appointment: Tessa George WPtel: [facility]5 [facility] [facility] 11/17/2013 Patient Education: Patient Medication Summary Completed 11/17/2013 Patient Education: Hypertension Completed 11/17/2013 Appointment: Tessa George WPtel: [address] [place], [place] [phone] Lab Draw 10/29/2013 Visit Plan: Polymyalgia Rheumatica [...] side effects. 08/27/2013 Appointment: Tessa George WPtel: [facility]5 [facility] Follow up 08/27/2013 Patient Education: Patient Medication [...] not improve. 08/18/2013 Appointment: Aviva Patton WPtel: [facility]5 [phone] [place] Other 08/18/2013 Patient Education: Patient Medication Summary Completed 08/18/2013 Patient Education: Hypertension Completed 08/18/2013 Appointment: Aviva Patton WPtel: [facility]5 [phone] [place] Injection 07/31/2013 Patient Education: Patient Medication Summary Completed 07/31/2013 Appointment: Aviva Patton WPtel: [facility]5 [phone] [place] Injection 07/23/2013 Patient Education: Patient Medication [...] of dysuria. 04/29/2013 Appointment: Tessa George WPtel: [address] [place], [place] [address] Follow up 04/29/2013 Patient Education: Patient Medication Summary Completed 04/29/2013 Patient Education: Hypertension Completed 04/29/2013 Appointment: Tessa George WPtel: [address] [place], [place] [address] Lab Draw 04/14/2013 Patient Education: Patient Medication Summary Completed 04/14/2013 Visit Plan: DYSURIA - WITH RECURRENT UTI - WILLGIVE ANTIBIOTIC AND REFER PT TO SEE DR. CHOW ABOUT RECTOCELE AND CYSTOCELE. 03/24/2013 Appointment: Tessa George WPtel: [phone] [facility] Other 03/24/2013 Patient Education: Patient Medication Summary [...] silver nitrate. 02/06/2013 Appointment: Tessa George WPtel: [phone] [facility] Follow up 02/06/2013 Patient Education: Patient Medication Summary Completed 02/06/2013 Patient Education: Hypertension Completed 02/06/2013 Visit Plan: Sinusitis - Pt has acute infection - pain in face, maxillary region, Pt informed to use decongestant, RX given to patient, sinus rinses also recommended. Call if symptoms do not show improvement. 11/05/2012 Appointment: Tessa George WPtel: 101 [facility] Other 11/05/2012 Patient Education: Patient Medication [...] call clinic. 10/31/2012 Appointment: [facility]Ptel[phone] Follow up 10/31/2012 Patient Education: Patient Medication [...] Ordoñez 09/25/2012 Appointment: [facility]Ptel: [facility] [facility] Follow up 09/25/2012 Patient Education: Patient Medication [...] home. 09/03/2012 Appointment: [facility]Ptel[facility] [facility] Follow up 09/03/2012 Patient Education: Patient [...] review. 08/20/2012 Appointment: Aviva Patton WPtel: [phone] [phone] Follow up 08/20/2012 Patient Education: Patient Medication [...] miralax 07/16/2012 Appointment: Aviva Patton WPtel: [phone] [phone] [facility] 07/16/2012 Patient Education: Patient Medication [...] kn benefiber 07/01/2012 Appointment: Tessa George WPtel: 101 [facility] Follow up 07/01/2012 Patient Education: Patient [...] stopping. 05/08/2012 Appointment: Tessa George WPtel: 1015 [facility] [facility] 05/08/2012 Patient Education: Patient [...] acute concerns. 04/19/2012 Appointment: Aviva Patton WPtel: [facility]3 [phone] [place] [address] Other 04/19/2012 Patient Education: Patient Medication Summary [...] the coreg. 04/15/2012 Appointment: Tessa George WPtel: 1015 [facility] Follow up 04/15/2012 Patient Education: Patient Medication Summary Completed 04/15/2012 Patient Education: High Blood Pressure: Essential Hypertension Completed 2011 Appointment: Tessa George WPtel: [facility] Lab Draw 04/08/2012 Visit Plan: UTI [...] the medication. 04/04/2012 Appointment: Tessa George WPtel: [facility]6 [facility]66[facility] Other 04/04/2012 Patient Education: Patient Medication Summary [...] bid 04/01/2012 Appointment: Tessa George WPtel: [phone] [facility] Other 04/01/2012 Patient Education: Patient Medication Summary Completed 04/01/2012 Patient Education: High Blood Pressure: Essential Hypertension Completed 2011 Visit Plan: Pericardial twg-LCW-Jsagcsiw-arm pain-history of shingles-Dr. George in to evaluate [...] AND EVALUATION OF THE ACUTE ILLNESS. Pericardial vuv-FJA-Upzrglqu-arm pain-history of shingles- Dr. George in to evaluate patient-plan to admit for further work up and close monitoring. Plan to get labs STAT including a cardiac panel. A stat echo has also been ordered as well with cardiology consult. 03/20/2012 Appointment: Aviva Patton WPtel: [address] [place] [address] Other 03/20/2012 Patient Education: Patient Medication Summary Completed 03/20/2012 Patient Education: High Blood Pressure: Essential Hypertension Completed 2011 Appointment: Aviva Patton WPtel: [address] [place] [address] Other 08/30/2011 Instructions Comment . Hypertension - [...] new RX for cymbalta 60mg daily. . Medicare Exam - today we discussed [...] in the nasal steroid allergy spray. . Ongoing flank/low back pain - will [...] pt see Dr. Benites. . Hypertension - uncontrolled - the patient's [...] not feeling any better by sunday . Pericardial bro-ZSP-Sohxbxyf-arm pain-history of eduard -Dr. George in to evaluate patient-plan to [...] AND EVALUATION OF THE ACUTE ILLNESS. Pericardial avd-CKZ-Rsvgqeka-arm pain-history of eduard-Dr. George in to evaluate patient-plan to admit [...] give RX after review of labs. . Hypertension - well controlled - continue [...] Call if symptoms do not show improvement. Increase your probiotic to twice daily I [...] and bring in 2-3 weeks for review. hold the flexeril start on the LEVSIN [...] if needed for spasms of the abdomen Take a probiotic while you are on [...] the office for further instructions/medication interventions. . Headache - Start on the Naprosyn [...] SEE DR. CHOW ABOUT RECTOCELE AND CYSTOCELE. increase cymbalta to 60mg daily (ok to [...]
[2019-01-26] MEDS ORDERED: morphine INJ 10 MG/ML 1ML (SYR OR VIAL) ONE (15:02)
--- OUTSIDE RECORDS SUMMARY | 2019-01-26 15:02 | XMS REPORT | CCD ---
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 Name Role Phone Tessa George PP Unavailable CCM Unavailable Summary Purpose Interface Exchange Insurance Providers Payer name Policy type / Coverage type Covered republican ID Effective Begin Date Effective End Date WPS Medicare Part B Medicare Part B [id number] Unknown FOR LIFE WPS Medicare Part B [id number] Unknown Family history Mother Diagnosis Age At Onset Myocardial infarction Unknown Father Diagnosis Age At Onset Cancer Unknown bladder cancer Unknown Myocardial infarction Unknown Brother Diagnosis Age At Onset Myocardial infarction Unknown Social History Social History Element Codes Description Effective Dates Marital status Unknown 02/02/[address]: 63330498 Current every day smoker 02/02/2016 Number of children Unknown 2 sons living and well 03/20/2012 Living arrangements Unknown House 03/20/2012 Employment Unknown Retired 03/20/2012 Number of years using tobacco Unknown 40 03/20/2012 Number of cigarettes/day Unknown 10 ( Half a pack) 03/20/[address]: 615158100 Never drinks alcohol 03/20/2012 Allergies, Adverse Reactions, Alerts Substance Reaction Codes Entered Date Inactivated Date Status * NO KNOWN FOOD ALLERGIES Unknown 07/01/2012 No Inactive Date Active cephalexin RxNorm: 2231 04/19/2012 No Inactive Date Active SULFA(SULFONAMIDE ANTIBIOTICS) Unknown 04/19/2012 No Inactive Date Active METRONIDAZOLE Unknown 01/22/2018 No Inactive Date Active Past Medical History Illness Codes Condition Status Onset Date Resolved Date Encounter for general adult medical examination with [...] Problems Condition Codes Effective Dates Condition Status Encounter for general adult medical examination with [...] Start Date Stop Date Status Fill Instructions doxycycline hyclate 100 mg tablet RxNorm: 429003 1 Tablet(s) PO BID 03/04/2018 03/10/2018 Inactive Pepcid AC 20 mg tablet RxNorm: 775775 1 Tablet(s) PO BID 201704/16/2019 Active pt requested a 90 day supply please Pepcid AC 20 mg tablet RxNorm: 862859 1 Tablet(s) PO BID 201701/21/2018 Inactive Pepcid AC 20 mg tablet RxNorm: 529210 1 Tablet(s) PO BID 201701/17/2018 Inactive Pepcid AC 20 mg tablet RxNorm: 878218 1 Tablet(s) PO BID 201712/18/2017 Inactive Flagyl 500 mg tablet RxNorm: 390803 1 Tablet(s) PO TID 201712/28/2017 Inactive Cymbalta 60 mg capsule,delayed release RxNorm: 448705 1 CAPSULE(S) PO DAILY 1 CAPSULE(S) PO DAILY 12/14/2017 No Stop Date Active Toprol XL 25 mg tablet,extended release RxNorm: 345659 1 TABLET(S) PO BID 12/14/2017 No Stop Date Active furosemide 20 mg tablet RxNorm: 425181 TAKE 1 TABLET DAILY No Stop Date Active Kenalog 40 mg/mL suspension for injection RxNorm: 6661266 1.5 Milliliter(s) Inj 08/15/2017 08/15/2017 Inactive triamcinolone acetonide 0.025 % topical cream RxNorm: 8908939 1 Application TOP BID as needed 08/15/2017 08/19/2017 Inactive prednisone 20 mg tablet RxNorm: 401299 2 Tablet(s) PO daily 10/201608/19/2017 Inactive Flagyl 500 mg tablet RxNorm: 937642 1 Tablet(s) PO TID 201608/10/2017 Inactive Flagyl 500 mg tablet RxNorm: 988872 1 Tablet(s) PO TID 201607/31/2017 Inactive Questran 4 gram powder for susp in a packet RxNorm: 428700 1/2 packet PO QID 06/19/2017 01/14/2018 Inactive Levsin/SL 0.125 mg sublingual tablet RxNorm: 5657997 1 Tablet(s) SL QID as needed abdominal pain or abdominal spasms 02/13/2017 08/19/2017 Inactive cyclobenzaprine 5 mg tablet RxNorm: 734638 1 Tablet(s) PO TID as needed 02/08/2017 02/12/2017 Inactive cyclobenzaprine 5 mg tablet RxNorm: 597807 1 Tablet(s) PO TID as needed 02/05/2017 02/07/2017 Inactive Cipro 250 mg tablet RxNorm: 807010 1 Tablet(s) PO BID 201602/11/2017 Inactive Cymbalta 60 mg capsule,delayed release RxNorm: 727792 1 Capsule(s) PO daily 1 CAPSULE(S) PO DAILY 12/18/2016 12/12/2017 Inactive Toprol XL 25 mg tablet,extended release RxNorm: 108801 1 Tablet(s) PO BID 12/18/2016 12/12/2017 Inactive [SAVINGS FOR NON-COVERED DRUGS -- BIN:[id number], PCN: ASPROD1, Group: XXXXX, ID# [id number], Questions: . THIS IS NOT INSURANCE.] ciprofloxacin 500 mg tablet RxNorm: 779621 1 Tablet(s) PO BID 12/12/2016 12/17/2016 Inactive furosemide 20 mg tablet RxNorm: 378152 TAKE 1 TABLET DAILY 12/201611/11/2017 Inactive levofloxacin 500 mg tablet RxNorm: 817540 1 Tablet(s) PO daily 06/21/2016 06/25/2016 Inactive Kenalog 40 mg/mL suspension for injection RxNorm: 1267063 Milliliter(s) Inj 06/21/2016 06/21/2016 Inactive hydrocodone 5 mg-acetaminophen 325 mg tablet RxNorm: 105824 1-2 Tablet(s) PO Q4- 6H as needed 11/03/2015 02/01/2016 Inactive Cymbalta 60 mg capsule,delayed release RxNorm: 880003 1 Capsule(s) PO daily 1 CAPSULE(S) PO DAILY 11/03/2015 12/17/2016 Inactive furosemide 20 mg tablet RxNorm: 445686 Tablet(s) TAKE 1 TABLET ONCE DAILY 11/03/2015 11/16/2016 Inactive Toprol XL 25 mg tablet,extended release RxNorm: 664332 2 Tablet(s) PO daily 11/03/2015 12/17/2016 Inactive [SAVINGS FOR NON-COVERED DRUGS -- BIN:[id number], PCN: ASPROD1, Group: XXXXX, ID# [id number], Questions: . THIS IS NOT INSURANCE.] Cymbalta 60 mg capsule,delayed release RxNorm: 062194 1 Capsule(s) PO daily 1 CAPSULE(S) PO DAILY 05/31/2015 11/02/2015 Inactive Toprol XL 25 mg tablet,extended release RxNorm: 130297 2 Tablet(s) PO daily 01/25/2015 11/02/2015 Inactive [SAVINGS FOR NON-COVERED DRUGS -- BIN:891708, PCN: ASPROD1, Group: XXXXX, ID# [id number], Questions: . THIS IS NOT INSURANCE.] Voltaren 1 % topical gel RxNorm: 658979 2 Gram(s) TOP QID to hands 01/25/2015 05/24/2015 Inactive [SAVINGS FOR NON-COVERED DRUGS -- BIN:798438, PCN: ASPROD1, Group : XXXXX, ID# [id number], Questions: . THIS IS NOT INSURANCE.] furosemide 20 mg tablet RxNorm: 128443 TAKE 1 TABLET ONCE DAILY 12/17/2014 11/02/2015 Inactive Kenalog 40 mg/mL suspension for injection RxNorm: 3255463 2 Milliliter(s) Inj UD 09/17/2014 09/17/2014 Inactive [SAVINGS FOR UNINSURED PATIENTS -- BIN:189745, PCN: ASPROD1, Group: AME08, ID# [id number], Process claim through MetaMaterials, for questions: . THIS IS NOT INSURANCE.] Levaquin 500 mg tablet RxNorm: 830805 1 Tablet(s) PO daily 08/16/2014 Inactive [SAVINGS FOR UNINSURED PATIENTS -- BIN:151298, PCN: ASPROD1, Group: AME08 , ID# [id number], Process claim through MedImpact, for questions: . THIS IS NOT INSURANCE.] Kenalog 40 mg/mL suspension for injection RxNorm: 0697210 Milliliter(s) Inj 08/03/2014 08/03/2014 Inactive [SAVINGS FOR UNINSURED PATIENTS -- BIN:121162, PCN: ASPROD1, Group: AME08, ID# [id number], Process claim through MedImpact, for questions: . THIS IS NOT INSURANCE.] azithromycin 500 mg tablet RxNorm: 237950 1 Tablet(s) PO UD 08/02/2014 Inactive dispense a zpack azithromycin 500 mg tablet RxNorm: 103558 1 Tablet(s) PO daily 08/03/2014 08/07/2014 Inactive 1 tab daily Cymbalta 60 mg capsule,delayed release RxNorm: 466789 1 Capsule(s) PO daily 07/23/2014 05/31/2015 Inactive [SAVINGS FOR UNINSURED PATIENTS -- BIN:878347, PCN: ASPROD1, Group: AME08, ID# [id number], Process claim through MedImpact, for questions: . THIS IS NOT INSURANCE.] Kenalog 40 mg/mL suspension for injection RxNorm: 7591974 1 1/2 Milliliter(s) Inj 04/27/2014 04/27/2014 Inactive [SAVINGS FOR UNINSURED PATIENTS -- BIN:181238, PCN: ASPROD1, Group: AME08, ID# [id number], Process claim through MedImpact, for questions: . THIS IS NOT INSURANCE.] meclizine 25 mg tablet RxNorm: 123861 1 Tablet(s) PO Q6 PRN 05/26/2014 Inactive [SAVINGS FOR UNINSURED PATIENTS -- BIN:164532, PCN: ASPROD1, Group: AME08 , ID# [id number], Process claim through MetaMaterials, for questions: . THIS IS NOT INSURANCE.] Levaquin 500 mg tablet RxNorm: 930429 1 Tablet(s) PO daily 05/03/2014 Inactive [SAVINGS FOR UNINSURED PATIENTS -- BIN:454289, PCN: ASPROD1, Group: AME08 , ID# [id number], Process claim through MetaMaterials, for questions: . THIS IS NOT INSURANCE.] Cymbalta 30 mg capsule,delayed release RxNorm: 308184 1 Capsule(s) PO daily 03/25/2014 07/22/2014 Inactive Cymbalta 30 mg capsule,delayed release RxNorm: 164898 1 Capsule(s) PO daily 01/28/2014 03/24/2014 Inactive furosemide 20 mg tablet RxNorm: 832863 1 Tablet(s) PO daily TAKE 1 TABLET BY MOUTH ONCE DAILY. 12/22/2013 12/16/2014 Inactive Toprol XL 25 mg tablet,extended release RxNorm: 471263 1 Tablet(s) PO daily 12/22/2013 01/24/2015 Inactive furosemide 20 mg tablet RxNorm: 716895 Tablet(s) PO TAKE 1 TABLET BY MOUTH ONCE DAILY. 12/04/2013 12/21/2013 Inactive prednisone 10 mg tablet RxNorm: 074506 Tablet(s) PO 10/28/2013 11/16/2013 Inactive 60mg d x 4 [id number] daily x 4 [id number] daily x 4 [id number] daily x 8 days5 mg daily x 8 day2.5 mg daily x 8 days2.5 mg qod x 8 doses then stop Toprol XL 25 mg tablet,extended release RxNorm: 032717 1 Tablet(s) PO daily 08/27/2013 12/21/2013 Inactive Macrobid 100 mg capsule RxNorm: 1804889 1 Capsule(s) PO BID 01/201308/24/2013 Inactive Influenza Virus Vaccine 0.5 mL RxNorm: IM 07/23/2013 07/23/2013 Inactive levofloxacin 500 mg tablet RxNorm: 348001 1 Tablet(s) PO daily 04/29/2013 05/03/2013 Inactive amitriptyline 10 mg tablet RxNorm: 944414 1 Tablet(s) PO qhs prn 1/2 to one tablet at bedtime if needed for bladder spasms 04/29/2013 08/20/2013 Inactive Cipro 250 mg tablet RxNorm: 084701 1 Tablet(s) PO BID 201204/23/2013 Inactive Levaquin 500 mg tablet RxNorm: 241673 1 Tablet(s) PO daily 07/201303/30/2013 Inactive Levaquin 500 mg tablet RxNorm: 021035 1 Tablet(s) PO daily 07/201303/23/2013 Inactive furosemide 20 mg tablet RxNorm: 495470 Tablet(s) PO TAKE 1 TABLET BY MOUTH ONCE DAILY. 03/13/2013 12/03/2013 Inactive furosemide 20 mg tablet RxNorm: 346552 Tablet(s) PO TAKE 1 TABLET BY MOUTH ONCE DAILY. 12/09/2012 03/12/2013 Inactive azithromycin 500 mg tablet RxNorm: 724786 1 Tablet(s) PO daily 11/05/2012 11/14/2012 Inactive rohan prieto Kenalog 40 mg/mL Susp for Injection RxNorm: 4724149 2 Milliliter(s) Inj 11/05/2012 11/05/2012 Inactive Cipro 500 mg tablet RxNorm: 907643 1 Tablet(s) PO BID 201102/05/2013 Inactive furosemide 20 mg tablet RxNorm: 165723 Tablet(s) PO 09/09/2012 12/08/2012 Inactive TAKE 1 TABLET BY MOUTH ONCE DAILY. Toprol XL 25 mg tablet,extended release RxNorm: 785598 1 Tablet(s) PO daily this will replace the coreg 08/26/20122012 Inactive Cipro 500 mg tablet RxNorm: 134081 1 Tablet(s) PO BID 201108/26/2012 Inactive Miralax 17 gram Oral Powder Packet RxNorm: 211018 1 PO daily 07/16/2012 Inactive Miralax 17 gram Oral Powder Packet RxNorm: 834679 1 PO daily 08/10/2013 Inactive furosemide 20 mg tablet RxNorm: 207345 Tablet(s) PO 06/10/2012 09/08/2012 Inactive TAKE 1 TABLET BY MOUTH ONCE DAILY. naproxen 500 mg tablet RxNorm: 010716 1 Tablet(s) PO 201105/08/2012 Inactive Cipro 250 mg tablet RxNorm: 396234 1 Tablet(s) PO BID Take 2 tabs BID today then 1 tab BID for the next 5 days 04/19/2012 04/25/2012 Inactive ketorolac 10 mg Tab RxNorm: 854364 1 Tablet(s) PO TID 201104/17/2012 Inactive ketorolac 60 mg/2 mL IM RxNorm: 984083 Milliliter(s) IM 201104/04/2012 Inactive ketorolac 10 mg Tab RxNorm: 197039 1 Tablet(s) PO TID 201104/10/2012 Inactive ciprofloxacin 500 mg Tab RxNorm: 898210 1 Tablet(s) PO BID 04/13/2012 Inactive ciprofloxacin 500 mg Tab RxNorm: 805774 1 Tablet(s) PO BID 04/03/2012 Inactive Coreg 3.125 mg Tab RxNorm: 269172 1 Tablet(s) PO BID 201108/25/2012 Inactive furosemide 20 mg tablet RxNorm: 814020 1 Tablet(s) PO daily 09/09/2011 Inactive Toprol XL 25 mg tablet,extended release RxNorm: 698467 1 Tablet(s) PO daily No Start Date 08/25/2012 Inactive Caltrate 600 + D oral RxNorm: 886766 oral No Start Date 11/02/2015 Inactive hydroxychloroquine 200 mg tablet RxNorm: 665118 1 Tablet(s) PO BID from dr duncan No Start Date 01/27/2014 Inactive Cipro 500 mg tablet RxNorm: 397258 1/2 Tablet(s) PO daily No Start Date 08/18/2013 Inactive Centrum Silver Ultra Women's Tab RxNorm: 1 Tablet(s) PO daily No Start Date 02/01/2016 Inactive Influenza Virus Vaccine 0.5 mL RxNorm: IM No Start Date 02/02/2016 Inactive hydrocodone 5 mg-acetaminophen 325 mg tablet RxNorm: 167838 1-2 Tablet(s) PO Q4- 6H as needed No Start Date 11/02/2015 Inactive prednisone 10 mg tablet RxNorm: 507650 Tablet(s) PO 60mg daily x 3 days, 40mg daily x 3 days, 20mg daily x 3 days, 10mg daily x 3 days, 5mg daily x 3 days, 5mg QOD x 1 week No Start Date 10/27/2013 Inactive Medication Administered Medication Codes Instructions Start Date Status Kenalog 40 mg/mL suspension for injection RxNorm: 2328593 1.5Milliliter 08/15/2017 No longer Active Kenalog 40 mg/mL suspension for injection RxNorm: 4742582 Milliliter 06/21/2016 No longer Active Kenalog 40 mg/mL suspension for injection RxNorm: 1378663 2MilliliterUD 09/17/2014 No longer Active Kenalog 40 mg/mL suspension for injection RxNorm: 4384541 Milliliter 08/03/2014 No longer Active Kenalog 40 mg/mL suspension for injection RxNorm: 4790966 1 1/2Milliliter 04/27/2014 No longer Active Influenza Virus Vaccine 0.5 mL RxNorm: 07/23/2013 No longer Active Kenalog 40 mg/mL Susp for Injection RxNorm: 7252418 2Milliliter 11/05/2012 No longer Active ketorolac 60 mg/2 mL IM RxNorm: 179941 Milliliter 04/04/2012 No longer Active Immunizations Vaccine [...] 07/01/2012 completed Assessments Condition Codes Effective Dates Encounter for general adult medical examination with [...] Visit Reason For Visit Effective Dates Notes Annual Medicare Wellness Exam 09/02/2018 hypertension 05/21/2018 [...] hTSH II 2.26 uIU/mL 07/10/2017 Comp Metabolic Fyx210 NA 140 mEq/L 07/10/2017 Comp Metabolic Emv123 K 4.2 mEq/L 07/10/2017 Comp Metabolic Lkn084 CL 106 mEq/L 07/10/2017 Comp Metabolic Aom331 CO2 26.0 mEq/L 07/10/2017 Comp Metabolic Xhe291 ANION GAP 12 07/10/2017 Comp Metabolic Prj745 GLUCOSE 89 mg/dL 07/10/2017 Comp Metabolic Yab345 Creat 0.6 mg/dL 07/10/2017 Comp Metabolic Slx361 eGFR 105 ml/min/1.73m2 07/10/2017 Comp Metabolic Qhb740 BUN 9 mg/dL 07/10/2017 Comp Metabolic Tbc310 B/C Ratio 15.0 Ratio 07/10/2017 Comp Metabolic Lym788 CALCIUM 9.4 mg/dL 07/10/2017 Comp Metabolic Fbv450 ALK PHOS 90 U/L 07/10/2017 Comp Metabolic Rca490 AST(SGOT) 15 U/L 07/10/2017 Comp Metabolic Srn893 ALT(SGPT) 14 U/L 07/10/2017 Comp Metabolic Qfb967 BILI T 0.5 mg/dL 07/10/2017 Comp Metabolic Xhz610 ALBUMIN 4.0 g/dL 07/10/2017 Comp Metabolic Lgy367 TPRO 6.2 g/dL 07/10/2017 Comp Metabolic Agg527 GLOB 2.2 g/dL 07/10/2017 Comp Metabolic Azc371 A/G Ratio 1.8 Ratio 07/10/2017 Comp Metabolic Npv647 Osmo 278 mOsmo 07/10/2017 Cbc With Differential [...] 32.3 pg 07/10/2017 Cbc With Differential Ord2 [place]% 6.2 % 07/10/2017 Cbc With Differential Ord2 [...] 2.19 K/ul 07/10/2017 Cbc With Differential Ord2 [place] ABS# 0.5 K/ul 07/10/2017 Cbc With Differential Ord2 Eos ABS# 0.1 K/ul 07/10/2017 Cbc With Differential Ord2 Baso ABS# 0.0 K/ul 07/10/2017 Culture Urine [id number] URINE CULTURE SEE NOTES 02/05/2017 Urine Culture Ucult Complete >100,000 col/ml aerobic growth sent to ref lab 02/03/2017 Culture Urine [id number] URINE CULTURE SEE NOTES 12/18/2016 Culture Urine [id number] Continued Results 12/18/2016 Urine Culture Ucult Complete [...] 42.8 % 02/03/2016 Cbc With Differential Ord2 MCV 95.7 fl 02/03/2016 Cbc With Differential Ord2 Lymph% 30.6 % 02/03/2016 Cbc With Differential Ord2 MCH 32.4 pg 02/03/2016 Cbc With Differential Ord2 [place]% 6.6 % 02/03/2016 Cbc With Differential Ord2 [...] 2.38 K/ul 02/03/2016 Cbc With Differential Ord2 [place] ABS# 0.5 K/ul 02/03/2016 Cbc With Differential Ord2 Eos ABS# 0.2 K/ul 02/03/2016 Cbc With Differential Ord2 Baso ABS# 0.0 K/ul 02/03/2016 Cbc With Differential Ord2 New Analyzer Notice Please note new ref ranges starting 10-27-2015 due to implemntation of new five part differential hematolgy analyzer. 02/03/2016 Comp Metabolic Qxu985 NA 136 mEq/L 02/03/2016 Comp Metabolic Ehb148 K 4.0 mEq/L 02/03/2016 Comp Metabolic Gox680 CL 102 mEq/L 02/03/2016 Comp Metabolic Omx938 CO2 28.0 mEq/L 02/03/2016 Comp Metabolic Qfu656 ANION GAP 10 02/03/2016 Comp Metabolic Ayh678 GLUCOSE 85 mg/dL 02/03/2016 Comp Metabolic Ydi580 Creat 0.7 mg/dL 02/03/2016 Comp Metabolic Vzl830 eGFR 88 ml/min/1.73m2 02/03/2016 Comp Metabolic Hxy442 BUN 15 mg/dL 02/03/2016 Comp Metabolic Mxj509 B/C Ratio 21.4 Ratio 02/03/2016 Comp Metabolic Srn804 CALCIUM 9.2 mg/dL 02/03/2016 Comp Metabolic Ubw142 ALK PHOS 81 U/L 02/03/2016 Comp Metabolic Dyd781 AST(SGOT) 19 U/L 02/03/2016 Comp Metabolic Gqj534 ALT(SGPT) 22 U/L 02/03/2016 Comp Metabolic Zaq788 BILI T 0.5 mg/dL 02/03/2016 Comp Metabolic Xas118 ALBUMIN 4.1 g/dL 02/03/2016 Comp Metabolic Smk368 TPRO 6.4 g/dL 02/03/2016 Comp Metabolic Noq976 GLOB 2.3 g/dL 02/03/2016 Comp Metabolic Cdt762 A/G Ratio 1.8 Ratio 02/03/2016 Comp Metabolic Bcg663 Osmo 272 mOsmo 02/03/2016 Tsh Ord6 hTSH II 1.61 uIU/mL 02/03/2016 CRP 1497764 CRP 1.8 MG/DL 08/21/2013 GFR CALC 0432626 GFR AA >60 ML/MIN 08/21/2013 GFR CALC 8746691 GFR NON-AA >60 ML/MIN 08/21/2013 CBC 6235359 WBC 9.0 10e9/L 08/21/2013 CBC 9791804 RBC 4.68 10e12/L 08/21/2013 CBC 1041222 HGB 15.0 g/dL 08/21/2013 CBC 0871352 HCT DET 43.8 % 08/21/2013 CBC 2310594 MCV 93.6 fL 08/21/2013 CBC 3329768 MCH 32.1 pg 08/21/2013 CBC 2710316 MCHC 34.2 g/dL 08/21/2013 CBC 3351935 PLT 267 10e9/L 08/21/2013 CBC 0880397 MPV 9.0 fL 08/21/2013 CBC 8643420 MARGE % 67.8 % 08/21/2013 CBC 2278300 LY % 24.8 % 08/21/2013 CBC 1211313 MON % 6.2 % 08/21/2013 CBC 2871445 EOS % 1.0 % 08/21/2013 CBC 7919726 BASO % 0.2 % 08/21/2013 CBC 3862565 RDW 13.1 % 08/21/2013 CBC 8733514 ABS MARGE 6.10 10e9/L 08/21/2013 CBC 2544363 ABS LYMPH 2.23 10e9/L 08/21/2013 CBC 9588697 ABS MONO 0.56 10e9/L 08/21/2013 CBC 4251460 ABS EOS 0.09 10e9/L 08/21/2013 CBC 1711236 ABS BASO 0.02 10e9/L 08/21/2013 CBC 6481053 RDW-SD 43.9 fL 08/21/2013 TSH 0453476 TSH 1.898 uIU/ML 08/21/2013 MAGNESIUM 0393584 MAGNESIUM 1.7 MEQ/L 08/21/2013 CHEM 14 8222743 AST 16 U/L 08/21/2013 CHEM 14 0345203 ALT 15 IU/L 08/21/2013 CHEM 14 2480993 BUN 14 MG/DL 08/21/2013 CHEM 14 9338722 ALBUMIN 4.4 GM/DL 08/21/2013 CHEM 14 0850980 CHLORIDE 103 MMOL/L 08/21/2013 CHEM 14 7317470 BILI TOT 0.6 MG/DL 08/21/2013 CHEM 14 0181637 ALK PHOS 80 U/L 08/21/2013 CHEM 14 8936711 SODIUM 138 MMOL/L 08/21/2013 CHEM 14 2061294 CREATININE 0.76 MG/DL 08/21/2013 CHEM 14 0627991 CALCIUM 10.2 MG/DL 08/21/2013 CHEM 14 2344798 POTASSIUM 4.0 MMOL/L 08/21/2013 CHEM 14 3755991 PROT TOT 7.0 GM/DL 08/21/2013 CHEM 14 4601146 GLUCOSE 95 MG/DL 08/21/2013 CHEM 14 3115037 BICARB 29 MMOL/L 08/21/2013 CHEM 14 1206017 ANION GAP 6 MEQ/L 08/21/2013 URINALYSIS NONAUTO W/O SCOPE 28241 Specific [place] 1.020 DateTime(Free Text in Aprima) URINALYSIS NONAUTO W/O SCOPE 36385 PH 5.0 DateTime(Free Text in Aprima) URINALYSIS NONAUTO W/O SCOPE 01610 GLUCOSE Negative DateTime(Free Text in Aprima) URINALYSIS NONAUTO W/O SCOPE 00298 Protein Negative DateTime(Free Text in Aprima) URINALYSIS NONAUTO W/O SCOPE 79803 Blood Mod. Blood DateTime( Free Text in Aprima) URINALYSIS NONAUTO W/O SCOPE 89608 Bilirubin Negative DateTime(Free Text in Aprima) URINALYSIS NONAUTO W/O SCOPE 48094 Ketones Negative DateTime(Free Text in Aprima) URINALYSIS NONAUTO W/O SCOPE 28700 Urobilinogen Negative DateTime(Free Text in Aprima) URINALYSIS NONAUTO W/O SCOPE 09726 Nitrite Negative DateTime(Free Text in Aprima) URINALYSIS NONAUTO W/O SCOPE 43638 Leukocytes Negative DateTime(Free Text in Aprima) URINALYSIS NONAUTO W/O SCOPE 50519 Specific [place] 1.010 DateTime(Free Text in Aprima) URINALYSIS NONAUTO W/O SCOPE 18910 PH 6.0 DateTime(Free Text in Aprima) URINALYSIS NONAUTO W/O SCOPE 17602 GLUCOSE neg DateTime( Free Text in Aprima) URINALYSIS NONAUTO W/O SCOPE 00988 Protein neg DateTime( Free Text in Aprima) URINALYSIS NONAUTO W/O SCOPE 33596 Blood 1+ DateTime(Free Text in Aprima) URINALYSIS NONAUTO W/O SCOPE 74044 Bilirubin neg DateTime(Free Text in Aprima) URINALYSIS NONAUTO W/O SCOPE 02698 Ketones neg DateTime( Free Text in Aprima) URINALYSIS NONAUTO W/O SCOPE 79792 Urobilinogen neg DateTime(Free Text in Aprima) URINALYSIS NONAUTO W/O SCOPE 46462 Nitrite neg DateTime( Free Text in Aprima) URINALYSIS NONAUTO W/O SCOPE 05778 Leukocytes 1+ DateTime(Free Text in Aprima) UA 32116 Specific [place] 1.005 DateTime(Free Text in Aprima ) UA 81136 PH 5 DateTime(Free Text in Aprima) UA 10810 GLUCOSE neg DateTime(Free Text in Aprima) UA 22300 Protein neg DateTime(Free Text in Aprima) UA 44800 Blood 1+ DateTime(Free Text in Aprima) UA 55608 Bilirubin neg DateTime(Free Text in Aprima) UA 39904 Ketones neg DateTime(Free Text in Aprima) UA 77719 Urobilinogen neg DateTime(Free Text in Aprima) UA 97131 Nitrite neg DateTime(Free Text in Aprima) UA 01984 Leukocytes 1+ DateTime(Free Text in Aprima) UA 34351 Specific [place] 1.005 DateTime(Free Text in Aprima ) UA 42838 PH 6.0 DateTime(Free Text in Aprima) UA 08916 GLUCOSE neg DateTime(Free Text in Aprima) UA 24819 Protein neg DateTime(Free Text in Aprima) UA 33685 Blood 1+ DateTime(Free Text in Aprima) UA 57711 Bilirubin neg DateTime(Free Text in Aprima) UA 95864 Ketones neg DateTime(Free Text in Aprima) UA 45924 Urobilinogen neg DateTime(Free Text in Apr) UA 53982 Nitrite neg DateTime(Free Text in Apr) UA 25472 Leukocytes neg DateTime(Free Text in ) Review of Systems System Result Effective Dates Constitutional No recent illness 2017 Constitutional No [...] accomodation 04/15/2012 None Full Exam - General 1995 [...] tearful 03/20/2012 None Full Exam - General 1995 Eyes conjunctiva /eyelids Overall: conjunctiva clear 03/20/2012 None Full Exam - General 1994 Eyes pupils and irises Overall: pupils equal, round, reactive to light and accomodation 03/20/2012 None Full Exam - General 1995 Eyes conjunctiva /eyelids Eyelid: edema 03/20/2012 upper [...] G0008 06/18/2018 ADMIN PNEUMOCOCCAL VACCINE SNOMED CT: 39995008 CPT-4: G0009 06/18/2018 PNEUMOCOCCAL VACC [address]: 85700851 CPT-4: 17332 06/18/2018 FLU VAC NO PRSV 4 DONTE 3 YRS+ Formatting Model/CDA Sections, Assigned to/Abigail Mancia CPT-4: 00600Xsehied 06/18/2018 PPPS, SUBSEQ VISIT CPT -4: G0439 08/22/2017 THER/PROPH/DIAG INJ SC/IM CPT-4: 96511 08/15/2017 TRIAMCINOLONE ACET INJ NOS CPT-4: J3301 08/15/2017 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 3-[address]: 326720060 CPT-4: G0436 12/12/2016 URINALYSIS NONAUTO W/O SCOPE CPT-4: 77244 12/12/2016 ADMIN INFLUENZA VIRUS VAC CPT-4: G0008 07/19/2016 FLU VACC 4 DONTE 3 YRS PLUS IM Formatting Model/CDA Sections, Assigned to/Abigail Mancia SNOMED CT: 10144334 CPT-4: 92604Ofxrmkk 07/19/2016 TRIAMCINOLONE ACET INJ NOS CPT-4: J3301 06/21/2016 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 3-[address]: 297354079 CPT-4: G0436 02/02/2016 ADMIN INFLUENZA VIRUS VAC CPT-4: G0008 08/25/2015 FLU VACC PRSV FREE INC ANTIG Formatting Model/CDA Sections, Assigned to/Abigail Mancia CPT-4: 28906Obkmqsp 08/25/2015 BIOPSY SKIN LESION CPT -4: 07644 02/02/2015 TRIAMCINOLONE ACET INJ NOS CPT-4: J3301 09/15/2014 DRAIN/INJECT JOINT/BURSA CPT-4: 51904 09/15/2014 TRIAMCINOLONE ACET INJ NOS CPT-4: J3301 08/03/2014 ADMIN INFLUENZA VIRUS VAC CPT-4: G0008 06/29/2014 FLU VAC NO PRSV 4 DONTE 3 YRS+ Assigned to/Abigail Mancia CPT-4: 80656Yrsgylp 06/29/2014 TRIAMCINOLONE ACET INJ NOS CPT-4: J3301 04/27/2014 ROUTINE VENIPUNCTURE CPT-4: 57201 08/21/2013 URINALYSIS NONAUTO W/O SCOPE CPT-4: 17543 08/18/2013 PRESCRIP TRANSMIT VIA ERX SY CPT-4: G8553 08/18/2013 ADMIN PNEUMOCOCCAL VACCINE SNOMED CT: 41112666 CPT-4: G0009 07/31/2013 Pneumococcal Polysaccharide Vaccine, 23-Valent, Ad CPT-4: 10184 07/31/2013 ADMIN INFLUENZA VIRUS VAC CPT-4: G0008 07/23/2013 FLULAVAL VACC, 3 YRS & >, IM CPT-4: Q2036 07/23/2013 PRESCRIP TRANSMIT VIA ERX SY CPT-4: G8553 04/29/2013 URINALYSIS NONAUTO W/O SCOPE CPT-4: 67992 04/14/2013 URINALYSIS NONAUTO W/O SCOPE CPT-4: 40755 03/24/2013 REMOVAL OF SKIN TAGS <W/15 CPT-4: 83157 02/06/2013 TRIAMCINOLONE ACET INJ NOS CPT-4: J3301 11/05/2012 THER/PROPH/DIAG INJ SC/IM CPT-4: 02298 11/05/2012 PRESCRIP TRANSMIT VIA ERX SY CPT-4: G8553 11/05/2012 URINALYSIS NONAUTO W/O SCOPE CPT-4: 23549 10/31/2012 URINALYSIS NONAUTO W/O SCOPE CPT-4: 33909 09/25/2012 PRESCRIP TRANSMIT VIA ERX SY CPT-4: G8553 09/25/2012 URINALYSIS NONAUTO W/O SCOPE CPT-4: 37940 08/20/2012 PRESCRIP TRANSMIT VIA ERX SY CPT-4: G8553 08/20/2012 ADMIN INFLUENZA VIRUS VAC CPT-4: G0008 07/01/2012 FLULAVAL VACC, 3 YRS & >, IM CPT-4: Q2036 07/01/2012 URINALYSIS NONAUTO W/O SCOPE CPT-4: 55288 04/19/2012 KETOROLAC TROMETHAMINE INJ CPT-4: J1885 04/04/2012 PRESCRIP TRANSMIT VIA ERX SY CPT-4: G8553 04/04/2012 PRESCRIP TRANSMIT VIA ERX SY CPT-4: G8553 04/01/2012 Vital Signs Date Vital 09/02/2018 Blood Pressure 1: 140/76 Code : 8480-6 BMI: 21.9 Code : 31553-5 Heart Rate 1 : 56 bpm Height: 5'8" SpO2: 97% Waist Measure (cm): 94 cm Weight: 144 lbs 05/21/2018 Blood Pressure 1: 136/80 Code : 8480-6 BMI: 24.6 Code : 28772-9 Heart Rate 1 : 57 bpm Height: 5'8" SpO2: 96% Weight: 162 lbs 03/04/2018 Blood Pressure 1: 160/82 Code : 8480-6 BMI: 24.3 Code : 77826-0 Heart Rate 1 : 67 bpm Height: 5'8" SpO2: 99% Temperature: 36.6 (C) / 97.9 (F) Weight: 160 lbs 01/22/2018 Blood Pressure 1: 132/84 Code : 8480-6 BMI: 24.2 Code : 64512-0 Heart Rate 1 : 64 bpm Height: 5'8" SpO2: 95% Weight: 159 lbs 10/22/2017 Blood Pressure 1: 152/78 Code : 8480-6 BMI: 24.0 Code : 59227-3 Heart Rate 1 : 68 bpm Height: 5'8" SpO2: 97% Weight: 158 lbs 08/22/2017 BMI: 24.8 Code: 01518-5 Height: 5'8" Weight: 163 lbs 08/15/2017 Blood Pressure 1: 140/74 Code : 8480-6 Heart Rate 1: 75 bpm Height: 5'8" SpO2: 96% Weight: 06/19/2017 Blood Pressure 1: 146/62 Code : 8480-6 BMI: 25.7 Code : 82779-4 Heart Rate 1 : 64 bpm Height: 5'8" SpO2: 96% Weight: 169 lbs 02/13/2017 Blood Pressure 1: 150/78 Code : 8480-6 BMI: 27.2 Code : 91505-0 Heart Rate 1 : 70 bpm Height: 5'8" SpO2: 96% Weight: 179 lbs 02/05/2017 Blood Pressure 1: 146/74 Code : 8480-6 BMI: 26.9 Code : 31554-6 Heart Rate 1 : 70 bpm Height: 5'8" SpO2: 96% Weight: 177 lbs 02/02/2017 Blood Pressure 1: 124/62 Code : 8480-6 BMI: 26.9 Code : 97557-3 Heart Rate 1 : 54 bpm Height: 5'8" SpO2: 94% Weight: 177 lbs 12/12/2016 Blood Pressure 1: 130/72 Code : 8480-6 BMI: 27.1 Code : 32999-2 Heart Rate 1 : 82 bpm Height: 5'8" SpO2: 95% Weight: 178 lbs 8 oz 06/21/2016 Blood Pressure 1: 136/74 Code : 8480-6 BMI: 25.8 Code : 47121-1 Heart Rate 1 : 86 bpm Height: 5'8" SpO2: 98% Weight: 170 lbs 05/24/2016 Blood Pressure 1: 132/80 Code : 8480-6 BMI: 25.7 Code : 49092-2 Heart Rate 1 : 67 bpm Height: 5'8" SpO2: 96% Weight: 169 lbs 02/02/2016 Blood Pressure 1: 138/80 Code : 8480-6 BMI: 25.8 Code : 30801-9 Heart Rate 1 : 67 bpm Height: 5'8" SpO2: 94% Weight: 170 lbs 11/03/2015 Blood Pressure 1: 138/82 Code : 8480-6 BMI: 26.0 Code : 53420-8 Heart Rate 1 : 80 bpm Height: 5'8" SpO2: 92% Weight: 171 lbs 02/02/2015 Blood Pressure 1: 136/88 Code : 8480-6 BMI: 26.6 Code : 82802-6 Heart Rate 1 : 67 bpm Height: 5'8" SpO2: 97% Temperature: 37.2 (C) / 98.9 (F) Weight: 175 lbs 01/25/2015 Blood Pressure 1: 150/92 Code : 8480-6 BMI: 26.6 Code : 27844-0 Heart Rate 1 : 79 bpm Height: 5'8" SpO2: 98% Weight: 175 lbs 11/26/2014 Blood Pressure 1: 148/92 Code : 8480-6 Blood Pressure 2: 142/92 Code: 8480-6 BMI: 26.5 Code: 03570-5 Heart Rate 1: 68 bpm Height: 5'8" Weight: 174 lbs 09/15/2014 Blood Pressure 1: 150/84 Code : 8480-6 BMI: 26.5 Code : 46437-7 Heart Rate 1 : 80 bpm Height: 5'8" Weight: 174 lbs 08/13/2014 Blood Pressure 1: 140/84 Code : 8480-6 Heart Rate 1: 82 bpm Height: Weight: 08/03/2014 Blood Pressure 1: 142/76 Code : 8480-6 BMI: 26.3 Code : 61586-6 Heart Rate 1 : 80 bpm Height: 5'8" Weight: 173 lbs 07/23/2014 Blood Pressure 1: 148/80 Code : 8480-6 Heart Rate 1: 76 bpm Weight: 175 lbs 06/29/2014 Blood Pressure 1: 140/82 Code : 8480-6 BMI: 26.5 Code : 55245-3 Heart Rate 1 : 60 bpm Height: 5'8" Weight: 174 lbs 04/27/2014 Blood Pressure 1: 112/70 Code : 8480-6 BMI: 26.5 Code : 35835-5 Heart Rate 1 : 72 bpm Height: 5'8" SpO2: 98% Weight: 174 lbs 01/28/2014 Blood Pressure 1: 134/80 Code : 8480-6 BMI: 26.6 Code : 69741-1 Heart Rate 1 : 72 bpm Height: 5'8" Weight: 175 lbs 01/05/2014 Blood Pressure 1: 142/86 Code : 8480-6 BMI: 27.2 Code : 54616-8 Heart Rate 1 : 78 bpm Height: 5'8" Weight: 179 lbs 11/17/2013 Blood Pressure 1: 118/62 Code : 8480-6 BMI: 27.1 Code : 94241-3 Heart Rate 1 : 76 bpm Height: 5'8" Weight: 178 lbs 08/27/2013 Blood Pressure 1: 126/80 Code : 8480-6 BMI: 26.6 Code : 52656-8 Heart Rate 1 : 72 bpm Height: [...] Code : 8480-6 BMI: 26.5 Code : 96843-7 Heart Rate 1 : 72 bpm Height: 5'8" Weight: 174 lbs 8 oz 03/24/2013 Blood Pressure 1: 112/78 Code : 8480-6 BMI: 26.2 Code : 02783-0 Heart Rate 1 : 72 bpm Height: [...] Symptom Name Status Result Effective Date Notes Annual Medicare Wellness Exam Alcohol Use does [...] data Encounters Encounter Performer Location Codes Date ([id number]) 98753 EST. PATIENT, LEVEL IV Diagnosis: Essential (primary) hypertension[ICD10: I10] Diagnosis: Tobacco use[ICD10: Z72.0] Diagnosis: Functional diarrhea[ICD10: K59.1] [facility] CPT-4: 38752 05/21/2018 ([id number]) 46818 EST. PATIENT, LEVEL III Diagnosis: Insect bite (nonvenomous) of abdominal wall, initial encounter[ICD10 : S30.861A] Tessa George MD, [facility] CPT-4: 29589 ([id number]) 89246 EST. PATIENT, LEVEL IV Diagnosis: Essential (primary) hypertension[ICD10: I10] Diagnosis: Tobacco use[ICD10: Z72.0] Diagnosis: Functional diarrhea[ICD10: K59.1] Tessa George MD, [facility] CPT-4: 50695 01/22/2018 ([id number]) 44586 EST. PATIENT, LEVEL III Diagnosis: Essential (primary) hypertension[ICD10: I10] Diagnosis: Functional diarrhea[ICD10: K59.1] Tessa George MD, [facility] CPT-4: 98378 10/22/2017 29745 EST. PATIENT, LEVEL III Diagnosis: Rash and other nonspecific skin eruption[ICD10: R21] Brooke George MD, [facility] CPT-4: 50129 08/15/2017 ([id number]) 25357 EST. PATIENT, LEVEL IV Diagnosis: Essential (primary) hypertension[ICD10: I10] Diagnosis: Functional diarrhea[ICD10: K59.1] Diagnosis: Epigastric pain[ICD10: R10.13] Tessa George MD, [facility] CPT- 4: 45493 06/19/2017 ([id number]) 37006 EST. PATIENT, LEVEL IV Diagnosis: Essential (primary) hypertension[ICD10: I10] Diagnosis: Epigastric pain[ICD10: R10.13] Tessa George MD, [facility] CPT- 4: 78053 02/13/2017 68302 EST. PATIENT, LEVEL IV Diagnosis: Low back pain[ICD10: M54.5] Brooke George MD, [facility] CPT-4 : 65635 02/05/2017 63640 EST. PATIENT, LEVEL IV Diagnosis: Dysuria[ICD10: R30.0] Diagnosis: Low back pain[ICD10: M54.5] Brooke George MD, [facility] CPT-4 : 57706 02/02/2017 ([id number]) 54758 EST. PATIENT, LEVEL IV Diagnosis: Essential (primary) hypertension[ICD10: I10] Diagnosis: Dysuria[ICD10: R30.0] Diagnosis: Tobacco use[ICD10: Z72.0] Tessa George MD, [facility] CPT-4: 57790 12/12/2016 14170 EST. PATIENT, LEVEL IV Diagnosis: Other acute sinusitis[ICD10: J01.80] Diagnosis: Other allergic rhinitis[ICD10: J30.89] Brooke George MD, [facility] CPT-4: 44780 06/21/2016 ([id number]) 09058 EST. PATIENT, LEVEL III Diagnosis: Essential (primary) hypertension[ICD10: I10] Diagnosis: Major depressive disorder, single episode, unspecified[ICD10: F32.9] Tessa George MD, [facility] CPT-4: 50998 05/24/2016 ([id number]) 43469 EST. PATIENT, LEVEL IV Diagnosis: Essential (primary) hypertension[ICD10: I10] Diagnosis: Major depressive disorder, single episode, unspecified[ICD10: F32.9] Diagnosis: Tobacco use[ICD10: Z72.0] Tessa George MD, [facility] CPT-4: 52209 02/02/2016 ([id number]) 25187 EST. PATIENT, LEVEL IV Diagnosis: Essential (primary) hypertension[ICD10: I10] Diagnosis: Polymyalgia rheumatica[ICD10: M35.3] Diagnosis: Major depressive disorder, single episode, unspecified[ICD10: F32.9] Tessa George MD [facility] CPT-4: 34777 11/03/2015 ([id number]) Miscellaneous no charge Diagnosis: Hyperpigmented skin lesion[ICD9: 709.00] Tessa George MD, [facility] CPT-4: 70849 02/12/2015 ([id number]) 72780 EST. PATIENT, LEVEL IV Diagnosis: ESSENTIAL HYPERTENSION[ICD9: 401.9] Diagnosis: DEPRESSIVE DISORDER NEC[ICD9: 311] Diagnosis: POLYMYALGIA RHEUMATICA[ICD9: 725] Tessa George MD, [facility] CPT-4: 46981 01/25/2015 ([id number]) 08705 EST. PATIENT, LEVEL IV Diagnosis: ESSENTIAL HYPERTENSION[ICD9: 401.9] Diagnosis: Polymyalgia rheumatica syndrome[ICD9: 725] Diagnosis: Smoking[ICD9: 305.1] Tessa George MD, [facility] CPT-4: 28240 11/26/2014 ([id number]) 22443 EST. PATIENT, LEVEL III Diagnosis: ESSENTIAL HYPERTENSION[ICD9: 401.9] Diagnosis: Sacroiliitis[ICD9: 720.2] Tessa George MD, [facility] CPT-4: 54616 09/15/2014 ([id number]) 33302 EST. PATIENT, LEVEL III Diagnosis: Hip pain[ICD9: 719.45] Diagnosis: Sacroiliac pain[ICD9: 724.6] Tessa George MD, [facility] CPT- 4: 43542 08/13/2014 ([id number]) 63476 EST. PATIENT, LEVEL III Diagnosis: ACUTE SINUSITIS[ICD9: 461.9] Diagnosis: ALLERGIC RHINITIS[ICD9: 477.9] Avvia George MD, [facility] CPT-4: 05358 08/03/2014 ([id number]) 54069 EST. PATIENT, LEVEL IV Diagnosis: ESSENTIAL HYPERTENSION[ICD9: 401.9] Diagnosis: DEPRESSIVE DISORDER NEC[ICD9: 311] Diagnosis: POLYMYALGIA RHEUMATICA[ICD9: 725] Tessa George MD, [facility] CPT-4: 62648 07/23/2014 ([id number]) 04065 EST. PATIENT, LEVEL IV Diagnosis: ESSENTIAL HYPERTENSION[ICD9: 401.9] Diagnosis: DEPRESSIVE DISORDER NEC[ICD9: 311] Diagnosis: POLYMYALGIA RHEUMATICA[ICD9: 725] Diagnosis: VACCIN FOR INFLUENZA[ICD10: Z23] Tessa George MD, [facility] CPT-4: 96586 06/29/2014 ([id number]) 89431 EST. PATIENT, LEVEL III Diagnosis: ACUTE MAXILLARY SINUSITIS[ICD9: 461.0] Diagnosis: BPPV (benign paroxysmal positional vertigo)[ICD9: 386.11] Aviva George MD , [facility] CPT-4: 25735 04/27/2014 ([id number]) 75028 EST. PATIENT, LEVEL III Diagnosis: ESSENTIAL HYPERTENSION[SNOMED: 60480123] Diagnosis: Fatigue[ICD9: 780.79] Diagnosis: DEPRESSIVE DISORDER NEC[ICD9: 311] Tessa Geogre MD, [facility] CPT-4: 79504 01/28/2014 ([id number]) 44217 EST. PATIENT, LEVEL III Diagnosis: ESSENTIAL HYPERTENSION[SNOMED: 70733315] Diagnosis: Blurry vision, bilateral[ICD9: 368.8] Tessa George MD, [facility] CPT-4: 09568 01/05/2014 ([id number]) 56675 EST. PATIENT, LEVEL IV Diagnosis: POLYMYALGIA RHEUMATICA[ICD9: 725] Diagnosis: PAIN IN LIMB[ICD9: 729.5] Diagnosis: ESSENTIAL HYPERTENSION[SNOMED: 73624115] Tessa George MD, [facility] CPT-4: 35955 11/17/2013 ([id number]) 49246 EST. PATIENT, LEVEL III Diagnosis: Polymyalgia rheumatica syndrome[ICD9: 725] Tessa George MD, [facility] CPT-4: 76150 08/27/2013 ([id number]) 62930 EST. PATIENT, LEVEL III Diagnosis: ESSENTIAL HYPERTENSION[SNOMED: 06139530] Diagnosis: Fatigue[ICD9: 780.79] Tessa George MD, [facility] CPT-4: 40649 08/21/2013 ([id number]) 95984 EST. PATIENT, LEVEL III Diagnosis: Urinary tract infection[ICD9: 599.0] Diagnosis: ESSENTIAL HYPERTENSION[SNOMED: 95468130] Aviva George MD, [facility] CPT-4: 01723 08/18/2013 ([id number]) 09993 EST. PATIENT, LEVEL IV Diagnosis: ESSENTIAL HYPERTENSION[SNOMED: 16547838] Diagnosis: HEMATURIA NOS[ICD9: 599.70] Diagnosis: CHRONIC INTERSTITIAL CYSTITIS[ICD9: 595.1] Tessa George MD, [facility] CPT-4: 18331 04/29/2013 ([id number]) 28256 EST. PATIENT, LEVEL III Diagnosis: Recurrent urinary tract infection[ICD9: 599.0] Diagnosis: DYSURIA[ICD9: 788.1] Tessa George MD, [facility] CPT-4: 62684 03/24/2013 ([id number] 40107 EST. PATIENT, LEVEL IV Diagnosis: ESSENTIAL HYPERTENSION[SNOMED: 67787811] Diagnosis: HYPERLIPIDEMIA[ICD9: 272.4] Diagnosis: Irritated nevus of neck[ICD9: 216.4] Tessa George MD [facility] CPT-4: 18425 02/06/2013 ([id number]) 12090 EST. PATIENT, LEVEL III Diagnosis: ACUTE MAXILLARY SINUSITIS[ICD9: 461.0] Diagnosis: ACUTE URI[ICD9: 465.9] Diagnosis: COUGH[ICD9: 786.2] Tessa George MD [facility] CPT-4: 77044 11/05/2012 ([id number]) 76048 EST. PATIENT, LEVEL III Diagnosis: ESSENTIAL HYPERTENSION[SNOMED: 06226948] Diagnosis: ILL-DEFINE CONDITION NEC[ICD9: 799.89] Tessa George MD [facility] CPT-4: 24434 10/31/2012 ([id number]) 21748 EST. PATIENT, LEVEL III Diagnosis: ESSENTIAL HYPERTENSION[SNOMED: 85067956] Tessa George MD [facility] CPT-4: 15161 09/03/2012 ([id number]) 03898 EST. PATIENT, LEVEL III Diagnosis: UTI[ICD9: 599.0] Diagnosis: Microscopic hematuria[ICD9: 599.72] Diagnosis: ESSENTIAL HYPERTENSION[SNOMED: 90960621] Tessa George MD [facility] CPT-4: 76412 08/20/2012 ([id number]) 41636 EST. PATIENT, LEVEL IV Diagnosis: Constipation - functional[ICD9: 564.09] Diagnosis: Abdominal pain[ICD9: 789.00] Tessa George MD [facility] CPT- 4: 33768 07/16/2012 ([id number]) 77416 EST. PATIENT, LEVEL IV Diagnosis: ESSENTIAL HYPERTENSION[SNOMED: 69795389] Diagnosis: Fatigue[ICD9: 780.79] Diagnosis: Constipation - functional[ICD9: 564.09] Tessa George MD [facility] CPT-4: 25302 07/01/2012 ([id number]) 41323 EST. PATIENT, LEVEL III Diagnosis: ESSENTIAL HYPERTENSION[SNOMED: 97148704] Diagnosis: HEADACHE[ICD9: 784.0] Tessa George MD [facility] CPT-4: 79120 05/08/2012 67679 EST. PATIENT, LEVEL IV Diagnosis: Urinary tract infection[ICD9: 599.0] Diagnosis: ESSENTIAL HYPERTENSION[SNOMED: 74519512] Diagnosis: Fatigue[ICD9: 780.79] GUANACO Morales MD CPT-4: 33230 04/19/2012 ([id number]) 77647 EST. PATIENT, LEVEL IV Diagnosis: ESSENTIAL HYPERTENSION[SNOMED: 84990577] Diagnosis: Mouth dryness[ICD9: 527.7] Diagnosis: HEADACHE[ICD9: 784.0] Diagnosis: CERVICALGIA[ICD9: 723.1] Tessa George MD [facility] CPT-4: 72533 04/15/2012 ([id number]) 26059 EST. PATIENT, LEVEL IV Diagnosis: Urinary tract infection[ICD9: 599.0] Diagnosis: Generally unwell[ICD9: 799.89] Diagnosis: ESSENTIAL HYPERTENSION[SNOMED: 76347812] Diagnosis: MYALGIA AND MYOSITIS[ICD9: 729.1] Tessa George MD [facility] CPT-4: 51487 04/04/2012 ([id number]) 11076 EST. PATIENT, LEVEL IV Diagnosis: ESSENTIAL HYPERTENSION[SNOMED: 54488744] Diagnosis: Unsteady gait[ICD9: 781.2] Diagnosis: Neck pain[ICD9: 723.1] Tessa George MD [facility] CPT-4: 29807 04/01/2012 ([id number]) Patient admitted to the hospital from clinic (NO CHARGE) Diagnosis: Pericardial rub[ICD9: 785.3] Diagnosis: ESSENTIAL HYPERTENSION[SNOMED: 61117380] Diagnosis: HEADACHE[ICD9: 784.0] Diagnosis: Arm pain[ICD9: 729.5] Aviva George MD, [facility] CPT-4: 54044R 03/20/2012 Plan of Care Planned Activity Notes Codes Status Date Visit Plan: Medicare Exam - today we [...] DOPA paperwork for health care surrogate. 09/02/2018 Patient Education: Patient Medication Summary Completed [...] symptoms. 05/21/2018 [phone] [facility] (15 min) Moderate 05/21/2018 Patient Education: Patient Medication Summary Completed 05/21/2018 Visit Plan: tick bite - rx for doxycycline - and use benadryl cream on the tick bites to help decrease itching 03/04/2018 Appointment: Tessa George WPtel: [facility] (15 min) Moderate 03/04/2018 Patient Education: Patient [...] strategies. 01/22/2018 Appointment: [facility] [phone] [facility] [place] (15 min) Moderate 01/22/2018 Patient Education: Patient [...] symptoms are not resolved. 10/22/2017 Appointment: [facility] e[facility] [phone] [facility] (15 min) Moderate 10/22/2017 Patient Education: [...] taper. 08/15/2017 [phone] ([facility] min) Complex 08/15/2017 Patient Education: [...] at home. 06/19/2017 Appointment: [facility] [phone] [facility] (15 min) Moderate 06/19/2017 Patient Education: [...] the abdomen 02/13/2017 Appointment: Tessa George WPtel: [facility] (15 min) Moderate 02/13/2017 Patient Education: Patient [...] improve. 02/05/2017 Appointment: [phone] [facility] (15 min) Moderate 02/05/2017 Patient Education: Patient [...] improve. 02/02/2017 Appointment: Brooke Dominguez WPtel: [phone] [facility] (15 min) Moderate 02/02/2017 Patient Education: Patient [...] stopping. 12/12/2016 Appointment: [facility] [phone] [facility] (15 min) Moderate 12/12/2016 Patient Education: [...] allergy spray. 06/21/2016 Appointment: Aviva Patton WPtel[facility] (15 min) Moderate 06/21/2016 Patient Education: [...] 2 weeks. 02/02/2015 Appointment: [facility] [phone] [facility] [facility] Procedure 02/02/2015 Patient Education: Patient [...] another smoker. 11/26/2014 Appointment: [facility] [phone] [facility] Follow up 11/26/2014 Patient Education: Patient [...] at home. 09/15/2014 Appointment: Tessa George WPtel: [phone] [facility] Follow up 09/15/2014 Patient Education: Patient Medication Summary Completed 09/15/2014 Visit Plan: Hip pain - stat xray right hip - antiinflammatories. Pt to use heat to hip, monitor symptoms - and pt to call if not improving, pt to be called with hip xray report. 08/13/2014 Appointment: [facility] [phone] [facility] Sick 08/13/2014 Patient Education: Patient Medication Summary [...] 60mg daily. 07/23/2014 Appointment: Tessa George WPtel: [phone] [facility] Follow up 07/23/2014 Patient Education: Patient Medication [...] today 06/29/2014 Appointment: [facility] [phone] [facility] Follow up 06/29/2014 Patient Education: Patient [...] cymbalta. 01/28/2014 Appointment: Tessa George WPtel: [phone] [facility] Follow up 01/28/2014 Patient Education: Patient Medication [...] Dr. Benites. 01/05/2014 Appointment: Tessa George WPtel: [facility]1 [facility] Follow up 01/05/2014 Patient Education: Patient Medication Summary Completed 01/05/2014 Patient Education: Hypertension Completed 01/05/2014 Appointment: Tessa George WPtel: [facility] Follow up 11/27/2013 Visit Plan: Hypertension - [...] pain 11/17/2013 Appointment: [facility]el[facility] [phone] [facility] [place] Other 11/17/2013 Patient Education: Patient Medication Summary Completed 11/17/2013 Patient Education: Hypertension Completed 11/17/2013 Appointment: Tessa George WPtel: [phone] [facility] [place] Lab Draw 10/29/2013 Visit Plan: Polymyalgia [...] effects. 08/27/2013 Appointment: [facility] [phone] [facility] [place] Follow up 08/27/2013 Patient Education: Patient [...] improve. 08/18/2013 Appointment: [facility]iva Patton [facility] [phone] [facility] [place] Other 08/18/2013 Patient Education: Patient Medication Summary Completed 08/18/2013 Patient Education: Hypertension Completed 08/18/2013 Appointment: [facility] [phone] [facility] [place] Injection 07/31/2013 Patient Education: Patient Medication Summary Completed 07/31/2013 Appointment: [facility] [phone] [facility] [place] Injection 07/23/2013 Patient Education: Patient [...] of dysuria. 04/29/2013 Appointment: Tessa George WPtel: [facility]6 [facility] Follow up 04/29/2013 Patient Education: Patient Medication Summary Completed 04/29/2013 Patient Education: Hypertension Completed 04/29/2013 Appointment: Tessa George WPtel: [facility]4 [facility] Lab Draw 04/14/2013 Patient Education: Patient Medication Summary Completed 04/14/2013 Visit Plan: DYSURIA - WITH RECURRENT UTI - WILLGIVE ANTIBIOTIC AND REFER PT TO SEE DR. CHOW ABOUT RECTOCELE AND CYSTOCELE. 03/24/2013 Appointment: Tessa George WPtel: [facility]3 [facility] Other 03/24/2013 Patient Education: Patient Medication Summary [...] silver nitrate. 02/06/2013 Appointment: Tessa George WPtel: [phone] [facility] Follow up 02/06/2013 Patient Education: Patient Medication Summary Completed 02/06/2013 Patient Education: Hypertension Completed 02/06/2013 Visit Plan: Sinusitis - Pt has acute infection - pain in face, maxillary region, Pt informed to use decongestant, RX given to patient, sinus rinses also recommended. Call if symptoms do not show improvement. 11/05/2012 Appointment: Tessa George WPtel: [phone] [facility] [place] Other 11/05/2012 Patient Education: Patient Medication [...] clinic. 10/31/2012 Appointment: Tessa George WPtel: [phone] [facility] Follow up 10/31/2012 Patient Education: Patient Medication [...] Dr. Ordoñez 09/25/2012 Appointment: Tessa George WPtel: [phone] [facility] Follow up 09/25/2012 Patient Education: Patient Medication [...] pressure readings at home. 09/03/2012 Appointment: Tessa Georgel: [phone] [facility] Follow up 09/03/2012 Patient Education: Patient Medication [...] for review. 08/20/2012 Appointment: Aviva Patton WPtel: [phone] [phone] Follow up 08/20/2012 Patient Education: Patient Medication [...] miralax 07/16/2012 Appointment: [phone] Sick 07/16/2012 Patient Education: Patient Medication Summary [...] kn benefiber 07/01/2012 Appointment: Tessa George WPtel: [facility] Follow up 07/01/2012 Patient Education: Patient Medication [...] in stopping. 05/08/2012 Appointment: Tessa George WPtel: [facility] [facility] 05/08/2012 Patient Education: Patient Medication [...] acute concerns. 04/19/2012 Appointment: Aviva Patton WPtel: [phone] [phone] [place] Other 04/19/2012 Patient Education: Patient Medication Summary [...] coreg. 04/15/2012 Appointment: Tessa George WPtel: [phone] [facility] Follow up 04/15/2012 Patient Education: Patient Medication Summary Completed 04/15/2012 Patient Education: High Blood Pressure: Essential Hypertension Completed 2011 Appointment: Tessa George WPtel: [facility]8 [facility] Lab Draw 04/08/2012 Visit Plan: UTI - [...] the medication. 04/04/2012 Appointment: [facility]el[facility] [phone] [facility] [place] Other 04/04/2012 Patient Education: Patient Medication Summary [...] bid 04/01/2012 Appointment: Tessa George WPtel: [phone] [facility] [place] Other 04/01/2012 Patient Education: Patient Medication Summary Completed 04/01/2012 Patient Education: High Blood Pressure: Essential Hypertension Completed 2011 Visit Plan: Pericardial scc-BIM-Ghqdncmt-arm pain-history of shingles-Dr. George in to evaluate [...] AND EVALUATION OF THE ACUTE ILLNESS. Pericardial rhd-HSI-Qztdyres-arm pain-history of shingles- Dr. George in to evaluate patient-plan to admit for further work up and close monitoring. Plan to get labs STAT including a cardiac panel. A stat echo has also been ordered as well with cardiology consult. 03/20/2012 Appointment: Aviva Patton WPtel: [phone] [place] Other 03/20/2012 Patient Education: Patient Medication Summary Completed 03/20/2012 Patient Education: High Blood Pressure: Essential Hypertension Completed 2011 Appointment: Aviva Patton WPtel: [facility] [place] Other 08/30/2011 Instructions Comment . Hypertension [...] paperwork for health care surrogate. . Pericardial moz-VYT-Hsldqqec-arm pain-history of shingles -Dr. George in to [...] AND EVALUATION OF THE ACUTE ILLNESS. Pericardial izm-LCP-Lxawmxpf-arm pain-history of shingles-Dr. George in to evaluate [...]
--- OUTSIDE RECORDS SUMMARY | 2019-01-26 15:04 | XMS REPORT | Continuity of Care Document ---
Author Organization Unknown Address Unknown Allergies Active Description Code Type Severity Reaction Onset Reported/Identified Relationship to Patient Clinical Status Yes cephalexin [id number] Drug Allergy Unknown N/A 12/21/2010 Yes STEROIDS STEROIDS Unknown N/A 12/21/2010 Yes Sulfa (Sulfonamide Antibiotics) [id number] Drug Allergy Unknown RASH 2011 Medications There is no data. 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 OLINDA PERDUE, ASHLEE Ot Z08 ENCNTR FOR FOLLOW-UP EXAM AFTER TRTMT FO OLINDA PERDUE, ASHLEE Ot Z85.3 PERSONAL HISTORY OF MALIGNANT NEOPLASM O OLINDA PERDUE, ASHLEE Ot Z92.3 PERSONAL HISTORY OF IRRADIATION 12/21/2010 Ot 562.10 12/21/2010 Ot V12.72 12/21/2010 Ot V67.09 03/22/2012 Ot 047.9 VIRAL MENINGITIS NOS 03/22/2012 Ot 272.4 HYPERLIPIDEMIA NEC/NOS 03/22/2012 Ot 305.1 TOBACCO USE DISORDER 03/22/2012 Ot 719.41 JOINT PAIN- SHLDER 03/22/2012 Ot 785.3 ABNORM HEART SOUNDS NEC 03/22/2012 Ot V10.3 HX OF BREAST MALIGNANCY 03/22/2012 Ot V45.71 ACQUIRED ABSENCE OF BREAST AND NIPPLE 03/24/2012 Ot 780.4 DIZZINESS AND GIDDINESS 03/24/2012 Ot 784.0 HEADACHE 09/19/2012 Ot 702.19 OTHER SEBORRHEIC KERATOSIS 09/22/2014 SANDRA PERDUE, CHRISTEN Jamison Ot 719.45 10/22/2014 CARLOTTA THAO MD Ot 305.1 10/22/2014 KEESHA MD, CARLOTTA K Ot 733.00 10/22/2014 KEESHA PERDUE, CARLOTTA K Ot V10.3 10/22/2014 KEESHA PERDUE, CARLOTTA K Ot V12.72 10/22/2014 KEESHA PERDUE, CARLOTTA K Ot V58.69 10/22/2014 KEESHA PERDUE, CARLOTTA K Ot V67.1 11/09/2014 KEESHA PERDUE, CARLOTTA K Ot 305.1 11/09/2014 KEESHA PERDUE, CARLOTTA Queenie Ot 733.00 11/09/2014 KEESHA PERDUE, CARLOTTA K Ot V10.3 11/09/2014 KEESHA PERDUE, CARLOTTA K Ot V12.72 11/09/2014 KEESHA PERDUE, CARLOTTA K Ot V58.69 11/09/2014 KEESHA PERDUE, CARLOTTA K Ot V67.1 12/02/2014 KEESHA PERDUE, CARLOTTA Queenie Ot 174.9 12/02/2014 KEESHA PERDUE, CARLOTTA K Ot 305.1 12/02/2014 KEESHA PERDUE, CARLOTTA Queenie Ot 733.00 12/02/2014 KEESHA PERDUE, CARLOTTA K Ot V10.3 12/02/2014 KEESHA PERDUE, CARLOTTA K Ot V12.72 12/02/2014 KEESHA PERDUE, CARLOTTA K Ot V58.69 12/02/2014 KEESHA PERDUE, CARLOTTA K Ot V67.1 12/02/2014 SANDRA PERDUE, CHRISTEN Jamison Ot 719.45 12/02/2014 KEESHA PERDUE, CARLOTTA Queenie Ot 305.1 12/02/2014 KEESHA PERDUE, CARLOTTA Queenie Ot 733.00 12/02/2014 KEESHA PERDUE, CARLOTTA K [...] K Ot V67.1 12/03/2014 SANDRA PERDUE, CHRISTEN Jamison Ot 719.45 12/03/2014 KEESHA PERDUE, CARLOTTA K Ot 305.1 12/03/2014 KEESHA PERDUE, CARLOTTA Jerome Ot 733.00 12/03/2014 KEESHA PERDUE, CARLOTTA Jerome Ot V10.3 12/03/2014 KEESHA PERDUE, CARLOTTA Jerome Ot V12.72 12/03/2014 KEESHA PERDUE, CARLOTTA Jerome Ot V58.69 12/03/2014 KEESHA PERDUE, CARLOTTA Jerome Ot V67.1 12/03/2014 SANDRA PERDUE, CHRISTEN A Ot 305.1 12/03/2014 SANDRA PERDUE, CHRISTEN A Ot 401.9 12/03/2014 SANDRA PERDUE, CHRISTEN A Ot 492.8 12/03/2014 SANDRA PERDUE, CHRISTEN A Ot V81.5 01/08/2015 SANDRA PERDUE, CHRISTEN A Ot 305.1 01/08/2015 SANDRA PERDUE, CHRISTEN A Ot 401.9 01/08/2015 SANDRA PERDUE, CHRISTEN A Ot 492.8 01/08/2015 SANDRA PERDUE, CHRISTEN A Ot V81.5 02/10/2015 Ot 433.30 02/10/2015 Ot 722.4 02/10/2015 Ot 781.2 02/10/2015 Ot 564.00 02/10/2015 Ot 789.00 02/10/2015 Ot 216.5 02/10/2015 Ot 305.1 02/10/2015 Ot 733.00 02/10/2015 Ot V10.3 02/10/2015 Ot V12.72 02/10/2015 Ot V45.77 02/10/2015 Ot V58.69 02/10/2015 Ot V67.1 02/10/2015 Ot 174.9 02/10/2015 Ot 709.9 02/10/2015 Ot V72.84 02/10/2015 Ot V74.8 02/10/2015 Ot 599.0 02/10/2015 KEESHA PERDUE, CARLOTTA Jerome Ot 216.5 02/10/2015 KEESHA PERDUE, CARLOTTA Jerome Ot 305.1 02/10/2015 KEESHA PERDUE, CARLOTTA Jerome Ot 733.00 02/10/2015 KEESHA PERDUE, CARLOTTA Jerome Ot V10.3 02/10/2015 KEESHA PERDUE, CARLOTTA Jerome Ot V12.72 02/10/2015 KEESHA PERDUE, CARLOTTA Jerome Ot V45.77 02/10/2015 KEESHA PERDUE, CARLOTTA Jerome Ot V58.69 02/10/2015 KEESHA PERDUE, CARLOTTA K Ot V67.1 02/10/2015 KEESHA PERDUE, CARLOTTA Queenie Ot 305.1 02/10/2015 KEESHA PERDUE, CARLOTTA Queenie Ot 733.00 02/10/2015 KEESHA PERDUE, CARLOTTA K Ot V10.3 02/10/2015 KEESHA PERDUE, CARLOTTA Queenie Ot V12.72 02/10/2015 KEESHA PERDUE, CARLOTTA Queenie Ot V58.69 02/10/2015 KEESHA PERDUE, CARLOTTA Queenie Ot V67.1 02/10/2015 KEESHA PERDUE, CARLOTTA Queenie Ot 174.9 02/10/2015 KEESHA PERDUE, CARLOTTA K Ot 305.1 02/10/2015 KEESHA PERDUE, CARLOTTA K Ot 733.00 02/10/2015 KEESHA PERDUE, CARLOTTA Queenie Ot V10.3 02/10/2015 KEESHA PERDUE, CARLOTTA Queenie Ot V12.72 02/10/2015 KEESHA PERDUE, CARLOTTA Queenie Ot V58.69 02/10/2015 KEESHA PERDUE, CARLOTTA K Ot V67.1 02/10/2015 SANDRA PERDUE, CHRISTEN Jamison Ot 719.45 02/10/2015 KEESHA PERDUE, CARLOTTA Queenie Ot 305.1 02/10/2015 KEESHA PERDUE, CARLOTTA Queenie Ot 733.00 02/10/2015 KEESHA PERDUE, CARLOTTA Jerome Ot V10.3 02/10/2015 KEESHA PERDUE, CARLOTTA Queenie Ot V12.72 02/10/2015 KEESHA PERDUE, CARLOTTA Queenie Ot V58.69 02/10/2015 KEESHA PERDUE, CARLOTTA Queenie Ot V67.1 02/10/2015 SANDRA PERDUE, CHRISTEN Jamison Ot 305.1 02/10/2015 SANDRA PERDUE, CHRISTEN A Ot 401.9 02/10/2015 SANDRA PERDUE, CHRISTEN A Ot 492.8 02/10/2015 SANDRA PERDUE, CHRISTEN A Ot V81.5 02/10/2015 KEESHA PERDUE, CARLOTTA Queenie Ot V10.3 02/10/2015 KEESHA PERDUE, CARLOTTA Queenie Ot V58.69 02/10/2015 KEESHA PERDUE, CARLOTTA Jerome Ot V67.1 03/05/2015 KEESHA PERDUE, CARLOTTA Jerome Ot V10.3 03/05/2015 KEESHA PERDUE, CARLOTTA Jerome Ot V58.69 03/05/2015 KEESHA PERDUE, CARLOTTA Jerome Ot V67.1 03/13/2015 KEESHA PERDUE, CARLOTTA Jerome Ot 174.9 03/13/2015 KEESHA PERDUE, CARLOTTA Jerome Ot V76.11 04/05/2015 KEESHA PERDUE, CARLOTTA Jerome Ot V10.3 HX OF BREAST MALIGNANCY 04/05/2015 KEESHA PERDUE, CARLOTTA Jerome Ot V58.69 OTH MED,LT,CURRENT USE 04/05/2015 KEESHA PERDUE, CARLOTTA Jerome Ot V67.1 RADIOTHERAPY FOLLOW-UP 05/24/2015 KEESHA PERDUE, CARLOTTA Jerome Ot V10.3 05/24/2015 KEESHA PERDUE, CARLOTTA Jerome Ot V58.69 05/24/2015 KEESHA PERDUE, CARLOTTA Queenie Ot V67.1 05/25/2015 KEESHA PERDUE, CARLOTTA Jerome Ot V10.3 05/25/2015 KEESHA PERDUE, CARLOTTA Queenie Ot V58.69 05/25/2015 KEESHA PERDUE, CARLOTTA Queenie Ot V67.1 06/02/2015 KEESHA PERDUE, CARLOTTA Queenie Ot V10.3 06/02/2015 KEESHA PERDUE, CARLOTTA Jerome Ot V58.69 06/02/2015 KEESHA PERDUE, CARLOTTA Jerome Ot V67.1 06/08/2015 KEESHA PERDUE, CARLOTTA Queenie Ot 174.9 06/08/2015 KEESHA PERDUE, CARLOTTA Queenie Ot 793.19 06/08/2015 KEESHA PERDUE, CARLOTTA Jerome Ot V10.3 06/08/2015 KEESHA PERDUE, CARLOTTA Jerome Ot V58.69 06/08/2015 KEESHA PERDUE, CARLOTTA Queenie Ot V67.1 06/08/2015 KEESHA PERDUE, CARLOTTA Queenie Ot V10.3 06/08/2015 KEESHA PERDUE, CARLOTTA Queenie Ot V58.69 06/08/2015 KEESHA PERDUE, CARLOTTA Queenie Ot V67.1 06/09/2015 KEESHA PERDUE, CARLOTTA Queenie Ot 174.9 06/09/2015 KEESHA PERDUE, CARLOTTA Jerome Ot 793.19 06/23/2015 KEESHA PERDUE, CARLOTTA Jerome Ot 174.9 06/23/2015 KEESHA PERDUE, CARLOTTA Queenie Ot 793.19 07/05/2015 KEESHA PERDUE, CARLOTTA Queenie Ot 174.9 07/05/2015 KEESHA PERDUE, CARLOTTA Jerome Ot 793.19 07/14/2015 KEESHA PERDUE, CARLOTTA Jerome Ot V10.3 HX OF BREAST MALIGNANCY 07/14/2015 KEESHA PERDUE, CARLOTTA Jerome Ot V58.69 OTH MED,LT,CURRENT USE 07/14/2015 KEESHA PERDUE, CARLOTTA Jerome Ot V67.1 RADIOTHERAPY FOLLOW-UP 07/14/2015 KEESHA PERDUE, CARLOTTA Jerome Ot V10.3 07/14/2015 KEESHA PERDUE, CARLOTTA Jerome [...] Queenie Ot 216.5 10/27/2015 KEESHA PERDUE, CARLOTTA Jerome Ot 305.1 10/27/2015 KEESHA PERDUE, CARLOTTA Queenie Ot 733.00 10/27/2015 KEESHA PERDUE, CARLOTTA Queenie Ot V10.3 10/27/2015 KEESHA PERDUE, CARLOTTA Queenie Ot V12.72 10/27/2015 KEESHA PERDUE, CARLOTTA Jerome Ot V45.77 10/27/2015 KEESHA PERDUE, CARLOTTA Jerome Ot V58.69 10/27/2015 KEESHA PERDUE, CARLOTTA Jerome Ot V67.1 10/27/2015 KEESHA PERDUE, CARLOTTA Queenie Ot 305.1 10/27/2015 KEESHA PERDUE, CARLOTTA Jerome Ot 733.00 10/27/2015 KEESHA PERDUE, CARLOTTA Queenie Ot V10.3 10/27/2015 KEESHA PERDUE, CARLOTTA Queenie Ot V12.72 10/27/2015 KEESHA PERDUE, CARLOTTA Jerome Ot V58.69 10/27/2015 KEESHA PERDUE, CARLOTTA Jerome Ot V67.1 10/27/2015 KEESHA PERDUE, CARLOTTA Queenie Ot 174.9 10/27/2015 KEESHA PERDUE, CARLOTTA Queenie Ot 305.1 10/27/2015 KEESHA PERDUE, CARLOTTA Queenie Ot 733.00 10/27/2015 KEESHA PERDUE, CARLOTTA Jerome Ot V10.3 10/27/2015 KEESHA PERDUE, CARLOTTA Jerome Ot V12.72 10/27/2015 KEESHA PERDUE, CARLOTTA Queenie Ot V58.69 10/27/2015 KEESHA PERDUE, CARLOTTA Jerome Ot V67.1 10/27/2015 SANDRA PERDUE, CHRISTEN Jamison Ot 719.45 10/27/2015 KEESHA PERDUE, CARLOTTA Jerome Ot 305.1 10/27/2015 KEESHA PERDUE, CARLOTTA Queenie Ot 733.00 10/27/2015 KEESHA PERDUE, CARLOTTA Jerome Ot V10.3 10/27/2015 KEESHA PERDUE, CARLOTTA Jerome Ot V12.72 10/27/2015 KEESHA PERDUE, CARLOTTA Queenie Ot V58.69 10/27/2015 KEESHA PERDUE, CARLOTTA Jerome Ot V67.1 10/27/2015 KEESHA PERDUE, CARLOTTA Jerome Ot 174.9 10/27/2015 KEESHA PERDUE, CARLOTTA K Ot V76.11 10/27/2015 SANDRA PERDUE, CHRISTEN A Ot 305.1 10/27/2015 SANDRA PERDUE, CHRISTEN A Ot 401.9 10/27/2015 SANDRA PERDUE, CHRISTEN A Ot 492.8 10/27/2015 SANDRA PERDUE, CHRISTEN A Ot V81.5 10/27/2015 KEESHA PERDUE, CARLOTTA Jerome [...] KEESHA PERDUE, CARLOTTA Jerome Ot Z85.3 10/28/2015 SAUD PERDUE, ROXANE Ot I10 ESSENTIAL (PRIMARY) HYPERTENSION 10/28/2015 SAUD PERDUE, ROXANE Ot 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 10/28/2015 SAUD PERDUE, ROXANE Jones Z79.899 OTHER LIFE SKILLS SPECIALIST (CURRENT) DRUG THERAPY 11/10/2015 KEESHA PERDUE, CARLOTTA Jerome Ot Z08 11/10/2015 KEESHA PERDUE, CARLOTTA Jerome [...] 12/15/2015 Ot V58.69 12/15/2015 Ot V67.1 12/19/2015 KEESHA PERDUE, CARLOTTA Queenie Ot Z08 ENCNTR FOR FOLLOW-UP EXAM AFTER TRTMT FO 12/19/2015 KEESHA PERDUE, CARLOTTA Queenie Ot Z85.3 PERSONAL HISTORY OF MALIGNANT NEOPLASM [...] FOR OTHER PREPROCEDURAL EXAMIN 05/11/2016 ROXANE VILLAVICENCIO MD, Ot Z86.010 PERSONAL HISTORY OF COLONIC POLYPS 05/12/2016 ROXANE VILLAVICENCIO MD, Ot Z01.818 ENCOUNTER FOR OTHER PREPROCEDURAL EXAMIN 05/12/2016 ROXANE VILLAVICENCIO MD, Ot Z86.010 PERSONAL HISTORY OF COLONIC POLYPS 05/17/2016 ROXANE VILLAVICENCIO MD, Ot K57.90 DVRTCLOS OF INTEST, PART UNSP, W/O PERF 05/17/2016 ROXANE VILLAVICENCIO MD, Ot K62.1 RECTAL POLYP 05/17/2016 ROXANE VILLAVICENCIO MD, Ot K64.1 SECOND DEGREE HEMORRHOIDS 05/17/2016 ROXANE VILLAVICENCIO MD, Ot Z09 ENCNTR FOR F/U EXAM AFT TRTMT FOR COND O 05/17/2016 ROXANE VILLAVICENCIO MD, Ot Z85.3 PERSONAL HISTORY OF MALIGNANT NEOPLASM O 05/17/2016 ROXANE VILLAVICENCIO MD, Ot Z86.010 PERSONAL HISTORY OF COLONIC POLYPS 05/18/2016 ROXANE VILLAVICENCIO MD, Ot K57.90 DVRTCLOS OF INTEST, PART UNSP, W/O PERF 05/18/2016 ROXANE VILLAVICENCIO MD, Ot K62.1 RECTAL POLYP 05/18/2016 ROXANE VILLAVICENCIO MD, Ot K64.1 SECOND DEGREE HEMORRHOIDS 05/18/2016 ROXANE VILLAVICENCIO MD, Ot Z09 ENCNTR FOR F/U EXAM AFT TRTMT FOR COND O 05/18/2016 ROXANE VILLAVICENCIO MD, Ot Z85.3 PERSONAL HISTORY OF MALIGNANT NEOPLASM O 05/18/2016 ROXANE VILLAVICENCIO MD, Ot Z86.010 PERSONAL HISTORY OF COLONIC POLYPS 05/19/2016 ROXANE VILLAVICENCIO MD, Ot K57.90 DVRTCLOS OF INTEST, PART UNSP, W/O PERF 05/19/2016 ROXANE VILLAVICENCIO MD, Ot K62.1 RECTAL POLYP 05/19/2016 ROXANE VILLAVICENCIO MD, Ot K64.1 SECOND DEGREE HEMORRHOIDS 05/19/2016 ROXANE VILLAVICENCIO MD, Ot Z09 ENCNTR FOR [...] Z86.010 PERSONAL HISTORY OF COLONIC POLYPS 05/26/2016 CARLOTTA THAO MD Ot Z08 ENCNTR FOR FOLLOW-UP EXAM AFTER TRTMT FO 05/26/2016 KEESHA MD, CARLOTTA K Ot Z85.3 PERSONAL HISTORY OF MALIGNANT NEOPLASM O 06/14/2016 KEESHA PERDUE, CARLOTTA Jerome Ot Z08 ENCNTR FOR FOLLOW-UP EXAM AFTER TRTMT FO 06/14/2016 KEESHA PERDUE, CARLOTTA Queenie Ot Z85.3 PERSONAL HISTORY OF MALIGNANT NEOPLASM O 07/03/2016 KEESHA PERDUE, CARLOTTA Jerome Ot Z08 ENCNTR FOR FOLLOW-UP EXAM AFTER TRTMT FO 07/03/2016 KEESHA PERDUE, CARLOTTA Queenie Ot Z85.3 PERSONAL HISTORY OF MALIGNANT NEOPLASM O 07/30/2016 KEESHA PERDUE, CARLOTTA Queenie Ot Z08 ENCNTR FOR FOLLOW-UP EXAM AFTER TRTMT FO 07/30/2016 KEESHA PERDUE, CARLOTTA Queenie Ot Z85.3 PERSONAL HISTORY OF MALIGNANT NEOPLASM O 08/05/2016 KEESHA PERDUE, CARLOTTA Queenie Ot Z08 ENCNTR FOR FOLLOW-UP EXAM AFTER TRTMT FO 08/05/2016 KEESHA PERDUE, CARLOTTA Jerome Ot Z85.3 PERSONAL HISTORY OF MALIGNANT NEOPLASM O 10/14/2016 Ot 174.9 MALIGN NEOPL BREAST NOS 10/14/2016 Ot 053.9 HERPES ZOSTER NOS 10/14/2016 Ot 305.1 TOBACCO USE DISORDER 10/14/2016 Ot 733.00 OSTEOPOROSIS NOS 10/14/2016 Ot V10.3 HX OF BREAST MALIGNANCY 10/14/2016 Ot V12.72 PERSONAL HISTORY OF COLONIC POLYPS 10/14/2016 Ot V45.77 ACQRD ABSENCE OF GENITAL ORGANS 10/14/2016 Ot V58.69 OTH MED,LT, CURRENT USE 10/14/2016 Ot V67.1 RADIOTHERAPY FOLLOW-UP 10/14/2016 [...] OF GENITAL ORGANS 10/14/2016 Ot V58.69 OTH MED,LT, CURRENT USE 10/14/2016 Ot V67.1 RADIOTHERAPY FOLLOW-UP 10/14/2016 Ot 174.9 MALIGN NEOPL BREAST NOS 10/14/2016 Ot 305.1 TOBACCO USE DISORDER 10/14/2016 Ot 733.00 OSTEOPOROSIS NOS 10/14/2016 Ot V10.3 HX OF BREAST MALIGNANCY 10/14/2016 Ot V12.72 PERSONAL HISTORY OF COLONIC POLYPS 10/14/2016 Ot V45.77 ACQRD ABSENCE OF GENITAL ORGANS 10/14/2016 Ot V58.69 OTH MED,LT, CURRENT USE 10/14/2016 Ot V67.1 RADIOTHERAPY FOLLOW-UP 10/14/2016 [...] Z85.3 PERSONAL HISTORY OF MALIGNANT NEOPLASM O 11/21/2016 CARLOTTA THAO MD Ot C50.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 11/21/2016 CARLOTTA THAO MD Ot R91.8 OTHER NONSPECIFIC ABNORMAL FINDING OF ZOHRA 11/23/2016 Ot 433.30 MULT BILTRAL ARTERY OCCLUSION WO CEREBRA 11/23/2016 Ot 722.4 CERVICAL DISC DEGEN 11/23/2016 Ot 781.2 ABNORMALITY OF GAIT 11/23/2016 Ot 564.00 UNSPEC CONSTIPATION 11/23/2016 Ot 789.00 ABDOMINAL PAIN, UNSPECIFIED SITE 11/23/2016 Ot 216.5 BENIGN NUBIA SKIN TRUNK 11/23/2016 Ot 305.1 TOBACCO USE DISORDER 11/23/2016 Ot 733.00 OSTEOPOROSIS NOS 11/23/2016 Ot V10.3 HX OF BREAST MALIGNANCY 11/23/2016 Ot V12.72 PERSONAL HISTORY OF COLONIC POLYPS 11/23/2016 Ot V45.77 ACQRD ABSENCE OF GENITAL ORGANS 11/23/2016 Ot V58.69 OTH MED,LT, CURRENT USE 11/23/2016 Ot V67.1 RADIOTHERAPY FOLLOW-UP 11/23/2016 Ot 174.9 MALIGN NEOPL BREAST NOS 11/23/2016 Ot 709.9 SKIN DISORDER NOS 11/23/2016 Ot V72.84 EXAM PRE- OPERATIVE NOS 11/23/2016 Ot V74.8 SCREEN- BACTERIAL DIS NEC 11/23/2016 Ot 599.0 URIN TRACT INFECTION NOS 11/23/2016 CARLOTTA THAO MD Ot 216.5 BENIGN NUBIA SKIN TRUNK 11/23/2016 CARLOTTA THAO MD Ot 305.1 TOBACCO USE DISORDER 11/23/2016 CARLOTTA THAO MD Ot 733.00 OSTEOPOROSIS NOS 11/23/2016 CARLOTTA THAO MD Ot V10.3 HX OF BREAST MALIGNANCY 11/23/2016 CARLOTTA THAO MD Ot V12.72 PERSONAL HISTORY OF COLONIC POLYPS 11/23/2016 CARLOTTA THAO MD Ot V45.77 ACQRD ABSENCE OF GENITAL ORGANS 11/23/2016 CARLOTTA THAO MD Ot V58.69 OTH MED,LT,CURRENT USE 11/23/2016 CARLOTTA THAO MD Ot V67.1 RADIOTHERAPY FOLLOW-UP 11/23/2016 CARLOTTA THAO MD Ot 305.1 TOBACCO USE DISORDER 11/23/2016 CARLOTTA THAO MD Ot 733.00 OSTEOPOROSIS NOS 11/23/2016 CARLOTTA THAO MD Ot V10.3 HX OF BREAST MALIGNANCY 11/23/2016 CARLOTTA THAO MD Ot V12.72 PERSONAL HISTORY OF COLONIC POLYPS 11/23/2016 CARLOTTA THAO MD Ot V58.69 OTH MED,LT,CURRENT USE 11/23/2016 CARLOTTA THAO MD Ot V67.1 RADIOTHERAPY FOLLOW-UP 11/23/2016 CARLOTTA THAO MD Ot 174.9 MALIGN NEOPL BREAST NOS 11/23/2016 CARLOTTA THAO MD Ot 305.1 TOBACCO USE DISORDER 11/23/2016 CARLOTTA THAO MD Ot 733.00 OSTEOPOROSIS NOS 11/23/2016 CARLOTTA THAO MD Ot V10.3 HX OF BREAST MALIGNANCY 11/23/2016 CARLOTTA THAO MD Ot V12.72 PERSONAL HISTORY OF COLONIC POLYPS 11/23/2016 CARLOTTA THAO MD Ot V58.69 OTH MED,LT,CURRENT USE 11/23/2016 CARLOTTA THAO MD Ot V67.1 RADIOTHERAPY FOLLOW-UP 11/23/2016 CHRISTEN FLORES MD Ot 719.45 JOINT PAIN-PELVIS 11/23/2016 CARLOTTA THAO MD Ot 305.1 TOBACCO USE DISORDER 11/23/2016 CARLOTTA THAO MD Ot 733.00 OSTEOPOROSIS NOS 11/23/2016 CARLOTTA THAO MD Ot V10.3 HX OF BREAST MALIGNANCY 11/23/2016 CARLOTTA THAO MD Ot V12.72 PERSONAL HISTORY OF COLONIC POLYPS 11/23/2016 CARLOTTA THAO MD Ot V58.69 OTH MED,LT,CURRENT USE 11/23/2016 CARLOTTA THAO MD Ot V67.1 RADIOTHERAPY FOLLOW-UP 11/23/2016 CARLOTTA THAO MD Ot 174.9 MALIGN NEOPL BREAST NOS 11/23/2016 CARLOTTA THAO MD Ot V76.11 SCRN MAMMO-HIGH RISK PT, MALIGNANT NEOPL 11/23/2016 CHRISTEN FLORES MD Ot 305.1 TOBACCO USE DISORDER 11/23/2016 CHRISTEN FLORES MD Ot 401.9 HYPERTENSION NOS 11/23/2016 CHRISTEN FLORES MD Ot 492.8 EMPHYSEMA NEC 11/23/2016 CHRISTEN FLORES MD Ot V81.5 SCREEN FOR NEPHROPATHY 11/23/2016 CARLOTTA THAO MD Ot 174.9 MALIGN NEOPL BREAST NOS 11/23/2016 CARLOTTA THAO MD Ot 793.19 OTHER NONSPECIFIC ABNORMAL FINDING OF ZOHRA 11/23/2016 Ot J44.9 CHRONIC OBSTRUCTIVE PULMONARY DISEASE, U 11/23/2016 Ot R91.1 SOLITARY PULMONARY NODULE 11/23/2016 CARLOTTA THAO MD Ot R91.8 OTHER NONSPECIFIC ABNORMAL FINDING OF ZOHRA 11/23/2016 CARLOTTA THAO MD Ot Z12.31 ENCNTR SCREEN MAMMOGRAM FOR MALIGNANT NE 11/23/2016 CARLOTTA THAO MD Ot C50.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 11/23/2016 CARLOTTA THAO MD Ot R91.8 OTHER NONSPECIFIC ABNORMAL FINDING OF ZOHRA 11/23/2016 CARLOTTA THAO MD Ot Z08 ENCNTR FOR FOLLOW-UP EXAM AFTER TRTMT FO 11/23/2016 CARLOTTA THAO MD Ot Z85.3 PERSONAL HISTORY OF MALIGNANT NEOPLASM O 12/12/2016 CARLOTTA THAO MD Ot C50.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 12/12/2016 CARLOTTA THAO MD Ot R91.8 OTHER NONSPECIFIC ABNORMAL FINDING OF ZOHRA 12/18/2016 CARLOTTA THAO MD Ot Z08 ENCNTR FOR FOLLOW-UP EXAM AFTER TRTMT FO 12/18/2016 CARLOTTA THAO MD Ot Z85.3 PERSONAL HISTORY OF MALIGNANT NEOPLASM O 12/26/2016 CARLOTTA THAO MD Ot C50.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 12/26/2016 CARLOTTA THAO MD Ot R91.8 OTHER NONSPECIFIC ABNORMAL FINDING OF ZOHRA 01/10/2017 CARLOTTA THAO MD Ot C50.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 01/10/2017 CARLOTTA THAO MD Ot R91.8 OTHER NONSPECIFIC ABNORMAL FINDING OF ZOHRA 01/22/2017 CARLOTTA THAO MD Ot Z08 ENCNTR FOR FOLLOW-UP EXAM AFTER TRTMT FO 01/22/2017 CARLOTTA THAO MD Ot Z85.3 PERSONAL HISTORY OF MALIGNANT NEOPLASM O 02/06/2017 VALDEZ DANIEL SLEEP MANAGER Ot R10.31 RIGHT LOWER QUADRANT PAIN 02/06/2017 VALDEZ DANIEL SLEEP MANAGER Ot R10.32 LEFT LOWER QUADRANT PAIN 02/15/2017 CARLOTTA THAO MD Ot 174.9 MALIGN NEOPL BREAST NOS 02/15/2017 CARLOTTA THAO MD Ot V76.11 SCRN MAMMO-HIGH RISK PT, MALIGNANT NEOPL 02/15/2017 CARLOTTA THAO MD Ot 174.9 MALIGN NEOPL BREAST NOS 02/15/2017 CARLOTTA THAO MD Ot 793.19 OTHER NONSPECIFIC ABNORMAL FINDING OF ZOHRA 02/15/2017 Ot J44.9 CHRONIC OBSTRUCTIVE PULMONARY DISEASE, U 02/15/2017 Ot R91.1 SOLITARY PULMONARY NODULE 02/15/2017 CARLOTTA THAO MD Ot R91.8 OTHER NONSPECIFIC ABNORMAL FINDING OF ZOHRA 02/15/2017 CARLOTTA THAO MD Ot Z12.31 ENCNTR SCREEN MAMMOGRAM FOR MALIGNANT NE 02/15/2017 CARLOTTA THAO MD Ot C50.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 02/15/2017 CARLOTTA THAO MD Ot R91.8 OTHER NONSPECIFIC ABNORMAL FINDING OF ZOHRA 02/15/2017 CARLOTTA THAO MD Ot Z08 ENCNTR FOR FOLLOW-UP EXAM AFTER TRTMT FO 02/15/2017 CARLOTTA THAO MD Ot Z85.3 PERSONAL HISTORY OF MALIGNANT NEOPLASM O 02/15/2017 VALDEZ DANIEL SLEEP MANAGER Ot R10.31 RIGHT LOWER QUADRANT PAIN 02/15/2017 VALDEZ DANIEL SLEEP MANAGER Ot R10.32 LEFT LOWER QUADRANT PAIN 02/18/2017 CARLOTTA THAO MD Ot Z08 ENCNTR FOR FOLLOW-UP EXAM AFTER TRTMT FO 02/18/2017 CARLOTTA THAO MD Ot Z85.3 PERSONAL HISTORY OF MALIGNANT NEOPLASM O 02/19/2017 CARLOTTA THAO MD Ot Z08 ENCNTR FOR FOLLOW-UP EXAM AFTER TRTMT FO 02/19/2017 CARLOTTA THAO MD Ot Z85.3 PERSONAL HISTORY OF MALIGNANT NEOPLASM O 02/27/2017 VALDEZ DANIEL SLEEP MANAGER Ot R10.31 RIGHT LOWER QUADRANT PAIN 02/27/2017 VALDEZ DANIEL APRN Ot R10.32 LEFT LOWER QUADRANT PAIN 03/05/2017 WILBUR MALONE, MISSAEL Desai Ot M66.872 SPONTANEOUS RUPTURE OF OTHER TENDONS, LE 03/09/2017 CARLOTTA THAO MD Ot Z12.31 ENCNTR SCREEN MAMMOGRAM FOR MALIGNANT NE 03/20/2017 VALDEZ DANIEL APRN Ot R10.31 RIGHT LOWER QUADRANT PAIN 03/20/2017 VALDEZ DANIEL APRN Ot R10.32 LEFT LOWER QUADRANT PAIN 05/24/2017 ASHLEE PRAKASH MD, Ot Z08 ENCNTR FOR FOLLOW-UP EXAM AFTER TRTMT FO 05/24/2017 ASHLEE PRAKASH MD, Ot Z85.3 PERSONAL HISTORY OF MALIGNANT NEOPLASM O 05/28/2017 ASHLEE PRAKASH MD Ot Z12.31 ENCNTR SCREEN MAMMOGRAM FOR MALIGNANT NE 05/28/2017 ASHLEE PRAKASH MD Ot Z12.31 ENCNTR SCREEN MAMMOGRAM FOR MALIGNANT NE 05/29/2017 ASHLEE PRAKASH MD Ot C50.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 05/29/2017 ASHLEE PRAKASH MD Ot R91.8 OTHER NONSPECIFIC ABNORMAL FINDING OF ZOHRA 05/29/2017 ASHLEE PRAKASH MD Ot F17.210 NICOTINE DEPENDENCE, CIGARETTES, UNCOMPL 05/29/2017 ASHLEE PRAKASH MD Ot M81.0 AGE-RELATED OSTEOPOROSIS W/O CURRENT PAT 05/29/2017 ASHLEE PRAKASH MD Ot R91.8 OTHER NONSPECIFIC ABNORMAL FINDING OF ZOHRA 05/29/2017 ASHLEE PRAKASH MD Ot Z08 ENCNTR FOR FOLLOW-UP EXAM AFTER TRTMT FO 05/29/2017 ASHLEE PRAKASH MD Ot Z85.3 PERSONAL HISTORY OF MALIGNANT NEOPLASM O 05/29/2017 ASHLEE PRAKASH MD Ot Z86.010 PERSONAL HISTORY OF COLONIC POLYPS 06/20/2017 ASHLEE PRAKASH MD Ot F17.210 NICOTINE DEPENDENCE, CIGARETTES, UNCOMPL 06/20/2017 ASHLEE PRAKASH MD Ot M81.0 AGE-RELATED OSTEOPOROSIS W/O CURRENT PAT 06/20/2017 ASHLEE PRAKASH MD Ot R91.8 OTHER NONSPECIFIC ABNORMAL FINDING OF ZOHRA 06/20/2017 ASHLEE PRAKASH MD Ot Z08 ENCNTR FOR FOLLOW-UP EXAM AFTER TRTMT FO 06/20/2017 ASHLEE PRAKASH MD, Ot Z85.3 PERSONAL HISTORY OF MALIGNANT NEOPLASM O 06/20/2017 ASHLEE PRAKASH MD Ot Z86.010 PERSONAL HISTORY OF COLONIC POLYPS 07/10/2017 ASHLEE PRAKASH MD Ot F17.210 NICOTINE DEPENDENCE, CIGARETTES, UNCOMPL 07/10/2017 ASHLEE PRAKASH MD Ot M81.0 AGE-RELATED OSTEOPOROSIS W/O CURRENT PAT 07/10/2017 ASHLEE PRAKASH MD Ot R91.8 OTHER NONSPECIFIC ABNORMAL FINDING OF ZOHRA 07/10/2017 ASHLEE PRAKASH MD Ot Z08 ENCNTR FOR FOLLOW-UP EXAM AFTER TRTMT FO 07/10/2017 ASHLEE PRAKASH MD Ot Z85.3 PERSONAL HISTORY OF MALIGNANT NEOPLASM O 07/10/2017 ASHLEE PRAKASH MD Ot Z86.010 PERSONAL HISTORY OF COLONIC POLYPS 07/20/2017 CHRISTEN FLORES MD Ot K57.30 DVRTCLOS OF LG INT W/O PERFORATION OR AB 08/10/2017 CHRISTEN FLORES MD Ot K57.30 DVRTCLOS OF LG INT W/O PERFORATION OR AB 09/04/2017 CHRISTEN FLORES MD Ot K57.30 DVRTCLOS OF LG INT W/O PERFORATION OR AB 04/16/2018 ASHLEE PRAKASH MD Ot Z12.31 ENCNTR SCREEN MAMMOGRAM FOR MALIGNANT NE 04/18/2018 ASHLEE PRAKASH MD Ot Z12.31 ENCNTR SCREEN MAMMOGRAM FOR MALIGNANT NE 04/22/2018 ASHLEE PRAKASH MD Ot C50.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 04/22/2018 ASHLEE PRAKASH MD Ot F17.210 NICOTINE DEPENDENCE, CIGARETTES, UNCOMPL 04/22/2018 ASHLEE PRAKASH MD, Ot M81.0 AGE-RELATED OSTEOPOROSIS W/O CURRENT PAT 04/22/2018 ASHLEE PRAKASH MD Ot R91.8 OTHER NONSPECIFIC ABNORMAL FINDING OF ZOHRA 04/22/2018 ASHLEE PRAKASH MD, Ot Z08 ENCNTR FOR FOLLOW-UP EXAM AFTER TRTMT FO 04/22/2018 ASHLEE PRAKASH MD, Ot Z85.3 PERSONAL HISTORY OF MALIGNANT NEOPLASM O 04/22/2018 ASHLEE PRAKASH MD, Ot Z86.010 PERSONAL HISTORY OF COLONIC POLYPS 04/23/2018 ASHLEE PRAKASH MD, Ot J43.9 EMPHYSEMA, UNSPECIFIED 04/23/2018 ASHLEE PRAKASH MD, Ot K22.8 OTHER SPECIFIED DISEASES OF ESOPHAGUS 04/23/2018 ASHLEE PRAKASH MD Ot 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 04/23/2018 ASHLEE PRAKASH MD, Ot R91.8 OTHER NONSPECIFIC ABNORMAL FINDING OF ZOHRA 04/23/2018 ASHLEE PRAKASH MD Ot Z12.31 ENCNTR SCREEN MAMMOGRAM FOR MALIGNANT NE 04/23/2018 ASHLEE PRAKASH MD, Ot Z90.49 ACQUIRED ABSENCE OF OTHER SPECIFIED PART 05/06/2018 ASHLEE PRAKASH MD, Ot C50.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 05/06/2018 ASHLEE PRAKASH MD, Ot Z08 ENCNTR FOR FOLLOW-UP EXAM AFTER TRTMT FO 05/06/2018 ASHLEE PRAKASH MD, Ot Z85.3 PERSONAL HISTORY OF MALIGNANT NEOPLASM O 05/06/2018 ASHLEE PRAKASH MD, Ot Z92.3 PERSONAL HISTORY OF IRRADIATION 05/06/2018 CARLOTTA THAO MD Ot 174.9 MALIGN NEOPL BREAST NOS 05/06/2018 CARLOTTA THAO MD Ot V76.11 SCRN MAMMO-HIGH RISK PT, MALIGNANT NEOPL 05/06/2018 CARLOTTA THAO MD Ot 174.9 MALIGN NEOPL BREAST NOS 05/06/2018 CARLOTTA THAO MD Ot 793.19 OTHER NONSPECIFIC ABNORMAL FINDING OF ZOHRA 05/06/2018 Ot J44.9 CHRONIC OBSTRUCTIVE PULMONARY DISEASE, U 05/06/2018 Ot R91.1 SOLITARY PULMONARY NODULE 05/06/2018 CARLOTTA THAO MD Ot R91.8 OTHER NONSPECIFIC ABNORMAL FINDING OF ZOHRA 05/06/2018 CARLOTTA THAO MD Ot Z12.31 ENCNTR SCREEN MAMMOGRAM FOR MALIGNANT NE 05/06/2018 CARLOTTA THAO MD Ot C50.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 05/06/2018 CARLOTTA THAO MD Ot R91.8 OTHER NONSPECIFIC ABNORMAL FINDING OF ZOHRA 05/06/2018 CARLOTTA THAO MD Ot Z12.31 ENCNTR SCREEN MAMMOGRAM FOR MALIGNANT NE 05/06/2018 VALDEZ DANIEL APRN Ot R10.31 RIGHT LOWER QUADRANT PAIN 05/06/2018 VALDEZ DANIEL APRN Ot R10.32 LEFT LOWER QUADRANT PAIN 05/06/2018 ASHLEE PRAKASH MD, Ot C50.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 05/06/2018 ASHLEE PRAKASH MD Ot F17.210 NICOTINE DEPENDENCE, CIGARETTES, UNCOMPL 05/06/2018 ASHLEE PRAKASH MD, Ot M81.0 AGE-RELATED OSTEOPOROSIS W/O CURRENT PAT 05/06/2018 AHSLEE PRAKASH MD, Ot R91.8 OTHER NONSPECIFIC ABNORMAL FINDING OF ZOHRA 05/06/2018 ASHLEE PRAKASH MD, Ot Z08 ENCNTR FOR FOLLOW-UP EXAM AFTER TRTMT FO 05/06/2018 ASHLEE PRAKASH MD, Ot Z85.3 PERSONAL HISTORY OF MALIGNANT NEOPLASM O 05/06/2018 ASHLEE PRAKASH MD, Ot Z86.010 PERSONAL HISTORY OF COLONIC POLYPS 05/06/2018 SANDRA PERDUE, CHRISTEN Jamison Ot K57.30 DVRTCLOS OF LG INT W/O PERFORATION OR AB 05/06/2018 ASHLEE PRAKASH MD, Ot J43.9 EMPHYSEMA, UNSPECIFIED 05/06/2018 ASHLEE PRAKASH MD Ot K22.8 OTHER SPECIFIED DISEASES OF ESOPHAGUS 05/06/2018 ASHLEE PRAKASH MD Ot 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 05/06/2018 ASHLEE PRAKASH MD Ot R91.8 OTHER NONSPECIFIC ABNORMAL FINDING OF ZOHRA 05/06/2018 ASHLEE PRAKASH MD, Ot Z12.31 ENCNTR SCREEN MAMMOGRAM FOR MALIGNANT NE 05/06/2018 ASHLEE PRAKASH MD, Ot Z90.49 ACQUIRED ABSENCE OF OTHER SPECIFIED PART 05/06/2018 ASHLEE PRAKASH MD, Ot Z08 ENCNTR FOR FOLLOW-UP EXAM AFTER TRTMT FO 05/06/2018 ASHLEE PRAKASH MD, Ot Z85.3 PERSONAL HISTORY OF MALIGNANT NEOPLASM O 05/06/2018 ASHLEE PRAKASH MD, Ot Z92.3 PERSONAL HISTORY OF IRRADIATION 05/06/2018 ASHLEE PRAKASH MD, Ot Z08 ENCNTR FOR FOLLOW-UP EXAM AFTER TRTMT FO 05/06/2018 ASHLEE PRAKASH MD, Ot Z85.3 PERSONAL HISTORY OF MALIGNANT NEOPLASM O 05/06/2018 ASHLEE PRAKASH MD, Ot Z92.3 PERSONAL HISTORY OF IRRADIATION 05/13/2018 ASHLEE PRAKASH MD, Ot F17.210 NICOTINE DEPENDENCE, CIGARETTES, UNCOMPL 05/13/2018 ASHLEE PRAKASH MD, Ot M81.0 AGE-RELATED OSTEOPOROSIS W/O CURRENT PAT 05/13/2018 ASHLEE PRAKASH MD, Ot R91.8 OTHER NONSPECIFIC ABNORMAL FINDING OF ZOHRA 05/13/2018 ASHLEE PRAKASH MD, Ot Z08 ENCNTR FOR FOLLOW-UP EXAM AFTER TRTMT FO 05/13/2018 ASHLEE PRAKASH MD, Ot Z85.3 PERSONAL HISTORY OF MALIGNANT NEOPLASM O 05/13/2018 ASHLEE PRAKASH MD, Ot Z86.010 PERSONAL HISTORY OF COLONIC POLYPS 05/14/2018 ASHLEE PRAKASH MD, Ot Z08 ENCNTR FOR FOLLOW-UP EXAM AFTER TRTMT FO 05/14/2018 ASHLEE PRAKASH MD, Ot Z85.3 PERSONAL HISTORY OF MALIGNANT NEOPLASM O 05/14/2018 ASHLEE PRAKASH MD, Ot Z92.3 PERSONAL HISTORY OF IRRADIATION 05/14/2018 ASHLEE PRAKASH MD, Ot J43.9 EMPHYSEMA, UNSPECIFIED 05/14/2018 ASHLEE PRAKASH MD Ot K22.8 OTHER SPECIFIED DISEASES OF ESOPHAGUS 05/14/2018 ASHLEE PRAKASH MD, Ot 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 05/14/2018 ASHLEE PRAKASH MD Ot R91.8 OTHER NONSPECIFIC ABNORMAL FINDING OF ZOHRA 05/14/2018 ASHLEE PRAKASH MD, Ot Z12.31 ENCNTR SCREEN MAMMOGRAM FOR MALIGNANT NE 05/14/2018 XUN MD, ANN-SOLOMON Ot Z90.49 ACQUIRED ABSENCE OF OTHER SPECIFIED PART 05/14/2018 CARLOTTA THAO MD Ot 174.9 MALIGN NEOPL BREAST NOS 05/14/2018 CARLOTTA THAO MD Ot V76.11 SCRN MAMMO-HIGH RISK PT, MALIGNANT NEOPL 05/14/2018 CARLOTTA THAO MD Ot 174.9 MALIGN NEOPL BREAST NOS 05/14/2018 CARLOTTA THAO MD Ot 793.19 OTHER NONSPECIFIC ABNORMAL FINDING OF ZOHRA 05/14/2018 Ot J44.9 CHRONIC OBSTRUCTIVE PULMONARY DISEASE, U 05/14/2018 Ot R91.1 SOLITARY PULMONARY NODULE 05/14/2018 CARLOTTA THAO MD Ot R91.8 OTHER NONSPECIFIC ABNORMAL FINDING OF ZOHRA 05/14/2018 CARLOTTA THAO MD, Ot Z12.31 ENCNTR SCREEN MAMMOGRAM FOR MALIGNANT NE 05/14/2018 CARLOTTA THAO MD Ot C50.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 05/14/2018 CARLOTTA THAO MD Ot R91.8 OTHER NONSPECIFIC ABNORMAL FINDING OF ZOHRA 05/14/2018 CARLOTTA THAO MD, Ot Z12.31 ENCNTR SCREEN MAMMOGRAM FOR MALIGNANT NE 05/14/2018 VALDEZ DANIEL SLEEP MANAGER Ot R10.31 RIGHT LOWER QUADRANT PAIN 05/14/2018 VALDEZ DANIEL SLEEP MANAGER Ot R10.32 LEFT LOWER QUADRANT PAIN 05/14/2018 ASHLEE PRAKASH MD Ot F17.210 NICOTINE DEPENDENCE, CIGARETTES, UNCOMPL 05/14/2018 ASHLEE PRAKASH MD, Ot M81.0 AGE-RELATED OSTEOPOROSIS W/O CURRENT PAT 05/14/2018 ASHLEE PRAKASH MD Ot R91.8 OTHER NONSPECIFIC ABNORMAL FINDING OF ZOHRA 05/14/2018 ASHLEE PRAKASH MD, Ot Z08 ENCNTR FOR FOLLOW-UP EXAM AFTER TRTMT FO 05/14/2018 ASHLEE PRAKASH MD Ot Z85.3 PERSONAL HISTORY OF MALIGNANT NEOPLASM O 05/14/2018 ASHLEE PRAKASH MD, Ot Z86.010 PERSONAL HISTORY OF COLONIC POLYPS 05/14/2018 SANDRA PERDUE, CHRISTEN Jamison Ot K57.30 DVRTCLOS OF LG INT W/O PERFORATION OR AB 05/14/2018 ASHLEE PRAKASH MD, Ot J43.9 EMPHYSEMA, UNSPECIFIED 05/14/2018 ASHLEE PRAKASH MD Ot K22.8 OTHER SPECIFIED DISEASES OF ESOPHAGUS 05/14/2018 ASHLEE PRAKASH MD Ot 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 05/14/2018 ASHLEE PRAKASH MD Ot R91.8 OTHER NONSPECIFIC ABNORMAL FINDING OF ZOHRA 05/14/2018 ASHLEE PRAKASH MD, Ot Z12.31 ENCNTR SCREEN MAMMOGRAM FOR MALIGNANT NE 05/14/2018 ASHLEE PRAKASH MD Ot Z90.49 ACQUIRED ABSENCE OF OTHER SPECIFIED PART 05/14/2018 ASHLEE PRAKASH MD, Ot Z08 ENCNTR FOR FOLLOW-UP EXAM AFTER TRTMT FO 05/14/2018 ASHLEE PRAKASH MD, Ot Z85.3 PERSONAL HISTORY OF MALIGNANT NEOPLASM O 05/14/2018 ASHLEE PRAKASH MD, Ot Z92.3 PERSONAL HISTORY OF IRRADIATION 05/14/2018 ASHLEE PRAKASH MD, Ot Z08 ENCNTR FOR FOLLOW-UP EXAM AFTER TRTMT FO 05/14/2018 ASHLEE PRAKASH MD, Ot Z85.3 PERSONAL HISTORY OF MALIGNANT NEOPLASM O 05/14/2018 ASHLEE PRAKASH MD, Ot Z92.3 PERSONAL HISTORY OF IRRADIATION 06/04/2018 ASHLEE PRAKASH MD, Ot Z08 ENCNTR FOR FOLLOW-UP EXAM AFTER TRTMT FO 06/04/2018 ASHLEE PRAKASH MD Ot Z85.3 PERSONAL HISTORY OF MALIGNANT NEOPLASM O 06/04/2018 ASHLEE PRAKASH MD Ot Z92.3 PERSONAL HISTORY OF IRRADIATION 07/03/2018 ASHLEE PRAKASH MD, Ot Z08 ENCNTR FOR FOLLOW-UP EXAM AFTER TRTMT FO 07/03/2018 ASHLEE PRAKASH MD, Ot Z85.3 PERSONAL HISTORY OF MALIGNANT NEOPLASM O 07/03/2018 ASHLEE PRAKASH MD, Ot Z92.3 PERSONAL HISTORY OF IRRADIATION 07/16/2018 ASHLEE PRAKASH MD, Ot Z08 ENCNTR FOR FOLLOW-UP EXAM AFTER TRTMT FO 07/16/2018 ASHLEE PRAKASH MD, Ot Z85.3 PERSONAL HISTORY OF MALIGNANT NEOPLASM O 07/16/2018 ASHLEE PRAKASH MD, Ot Z92.3 PERSONAL HISTORY OF IRRADIATION 12/13/2018 ABA PERDUE, ROBERT Peraza Ot F17.210 NICOTINE DEPENDENCE, CIGARETTES, UNCOMPL 12/13/2018 ABA PERDUE, ROBERT Peraza Ot F41.9 ANXIETY DISORDER, UNSPECIFIED 12/13/2018 ROBERT TRONCOSO MD Ot I10 ESSENTIAL (PRIMARY) HYPERTENSION 12/13/2018 ROBERT TRONCOSO MD Ot I67.4 HYPERTENSIVE ENCEPHALOPATHY 12/13/2018 ROBERT TRONCOSO MD Ot R51 HEADACHE 12/13/2018 ROBERT TRONCOSO MD Ot Z85.3 PERSONAL HISTORY OF MALIGNANT NEOPLASM O 12/13/2018 ROBERT TRONCOSO MD Ot Z86.010 PERSONAL HISTORY OF COLONIC POLYPS 12/13/2018 ROBERT TRONCOSO MD Ot Z86.19 PERSONAL HISTORY OF OTHER INFECTIOUS AND 12/13/2018 ROBERT TRONCOSO MD Ot Z87.19 PERSONAL HISTORY OF OTHER DISEASES OF TH 12/13/2018 ROBERT TRONCOSO MD Ot Z88.1 ALLERGY STATUS TO OTHER ANTIBIOTIC AGENT 12/13/2018 ROBERT TRONCOSO MD Ot Z88.2 ALLERGY STATUS TO SULFONAMIDES STATUS 12/13/2018 ROBERT TRONCOSO MD Ot Z88.8 ALLERGY STATUS TO OTH DRUG/MEDS/BIOL SUB 12/13/2018 ROBERT TRONCOSO MD Ot Z96.0 PRESENCE OF UROGENITAL IMPLANTS 12/13/2018 ROBERT TRONCOSO MD Ot Z98.890 OTHER SPECIFIED POSTPROCEDURAL STATES 12/17/2018 ROBERT TRONCOSO MD Ot F17.210 NICOTINE DEPENDENCE, CIGARETTES, UNCOMPL 12/17/2018 ROBERT TRONCOSO MD Ot F41.9 ANXIETY DISORDER, UNSPECIFIED 12/17/2018 ROBERT TRONCOSO MD Ot I10 ESSENTIAL (PRIMARY) HYPERTENSION 12/17/2018 ROBERT TRONCOSO MD Ot I67.4 HYPERTENSIVE ENCEPHALOPATHY 12/17/2018 ROBERT TRONCOSO MD Ot R51 HEADACHE 12/17/2018 ROBERT TRONCOSO MD Ot Z85.3 PERSONAL HISTORY OF MALIGNANT NEOPLASM O 12/17/2018 ROBERT TRONCOSO MD Ot Z86.010 PERSONAL HISTORY OF COLONIC POLYPS 12/17/2018 ROBERT TRONCOSO MD Ot Z86.19 PERSONAL HISTORY OF OTHER INFECTIOUS AND 12/17/2018 ROBERT TRONCOSO MD Ot Z87.19 PERSONAL HISTORY OF OTHER DISEASES OF TH 12/17/2018 ROBERT TRONCOSO MD Ot Z88.1 ALLERGY STATUS TO OTHER ANTIBIOTIC AGENT 12/17/2018 ROBERT TRONCOSO MD Ot Z88.2 ALLERGY STATUS TO SULFONAMIDES STATUS 12/17/2018 ROBERT TRONCOSO MD, Ot Z88.8 ALLERGY STATUS TO OTH DRUG/MEDS/BIOL SUB 12/17/2018 ROBERT TRONCOSO MD Ot Z96.0 PRESENCE OF UROGENITAL IMPLANTS 12/17/2018 ROBERT TRONCOSO MD, Ot Z98.890 OTHER SPECIFIED POSTPROCEDURAL STATES Procedures Code Description Performed By Performed On 01.12 SPINAL TAP 03/20/2012 Results Test Result Range Complete blood count (CBC) with automated white blood cell (WBC) differential - 12/13/18 21:25 Blood leukocytes automated count (number/volume) 12.2 10*3/uL 4.3-11.0 Blood erythrocytes automated count (number/volume) 4.94 10*6/uL 4.35-5.85 Venous blood hemoglobin measurement (mass/volume) 15.7 g/dL 11.5-16.0 Blood hematocrit (volume fraction) 46 % 35-52 Automated erythrocyte mean corpuscular volume 92 [foz_us] 80-99 Automated erythrocyte mean corpuscular hemoglobin (mass per erythrocyte) 32 pg 25-34 Automated erythrocyte mean corpuscular hemoglobin concentration measurement ( mass/volume) 34 g/dL 32-36 Automated erythrocyte distribution width ratio 13.8 % 10.0-14.5 Automated blood platelet count (count/volume) 327 10*3/uL 130-400 Automated blood platelet mean volume measurement 8.8 [foz_us] 7.4-10.4 Automated blood neutrophils/100 leukocytes 60 % 42-75 Automated blood lymphocytes/100 leukocytes 31 % 12-44 Blood monocytes/100 leukocytes 8 % 0-12 Automated blood eosinophils/100 leukocytes 1 % 0-10 Automated blood basophils/100 leukocytes 0 % 0-10 Blood neutrophils automated count (number/volume) 7.3 10*3 1.8-7.8 Blood lymphocytes automated count (number/volume) 3.8 10*3 1.0-4.0 Blood monocytes automated count (number/volume) 1.0 10*3 0.0-1.0 Automated eosinophil count 0.2 10*3/uL 0.0-0.3 Automated blood basophil count (count/volume) 0.0 10*3/uL 0.0-0.1 PT panel in platelet poor plasma by coagulation assay - 12/13/18 21:25 Prothrombin time (PT) in platelet poor plasma by coagulation assay 13.2 s 12.2-14.7 INR in platelet poor plasma or blood by coagulation assay 1.0 0.8-1.4 Activated partial thromboplastin time (aPTT) in platelet poor plasma bycoagulation assay - 12/13/18 21:25 Activated partial thromboplastin time (aPTT) in platelet poor plasma bycoagulation assay 30 s 24-35 Comprehensive metabolic panel - 12/13/18 21:25 Serum or plasma sodium measurement (moles/volume) 139 mmol/L 135-145 Serum or plasma potassium measurement (moles/volume) 3.6 mmol/L 3.6-5.0 Serum or plasma chloride measurement (moles/volume) 101 mmol/L 98-107 Carbon dioxide 26 mmol/L 21-32 Serum or plasma anion gap determination (moles/volume) 12 mmol/L 5-14 Serum or plasma urea nitrogen measurement (mass/volume) 15 mg/dL 7-18 Serum or plasma creatinine measurement (mass/volume) 0.81 mg/dL 0.60-1.30 Serum or plasma urea nitrogen/creatinine mass ratio 19 NRG Serum or plasma creatinine measurement with calculation of estimated glomerular filtration rate > NRG Serum or plasma glucose measurement (mass/volume) 96 mg/dL 70-105 Serum or plasma calcium measurement (mass/volume) 9.9 mg/dL 8.5-10.1 Serum or plasma total bilirubin measurement (mass/volume) 0.5 mg/dL 0.1-1.0 Serum or plasma alkaline phosphatase measurement (enzymatic activity/volume) 96 U/L 40-136 Serum or plasma aspartate aminotransferase measurement (enzymatic activity/ volume) 18 U/L 5-34 Serum or plasma alanine aminotransferase measurement (enzymatic activity/volume ) 26 U/L 0-55 Serum or plasma protein measurement (mass/volume) 7.8 g/dL 6.4-8.2 Serum or plasma albumin measurement (mass/volume) 4.6 g/dL 3.2-4.5 Magnesium - 12/13/18 21:25 Magnesium 2.6 mg/dL 1.8-2.4 Serum or plasma troponin i.cardiac measurement (mass/volume) - 12/13/18 21:25 Serum or plasma troponin i.cardiac measurement (mass/volume) < ng/ mL <0.028 Erythrocyte sedimentation rate by westergren method - 12/13/18 21:25 Erythrocyte sedimentation rate by westergren method 6 mm 0-30 Serum or plasma C reactive protein measurement (mass/volume) - 12/13/18 21:25 Serum or plasma C reactive protein measurement (mass/volume) 1.79 mg /dL 0.00-0.50 Capillary blood glucose measurement by glucometer (mass/volume) - 12/13/18 21: 46 Capillary blood glucose measurement by glucometer (mass/volume) 102 mg/dL 70-110 Complete blood count (CBC) with automated white blood cell (WBC) differential - 01/26/19 13:34 Blood leukocytes automated count (number/volume) 10.3 10*3/uL 4.3-11.0 Blood erythrocytes automated count (number/volume) 4.66 10*6/uL 4.35-5.85 Venous blood hemoglobin measurement (mass/volume) 15.0 g/dL 11.5-16.0 Blood hematocrit (volume fraction) 43 % 35-52 Automated erythrocyte mean corpuscular volume 93 [foz_us] 80-99 Automated erythrocyte mean corpuscular hemoglobin (mass per erythrocyte) 32 pg 25-34 Automated erythrocyte mean corpuscular hemoglobin concentration measurement ( mass/volume) 35 g/dL 32-36 Automated erythrocyte distribution width ratio 13.9 % 10.0-14.5 Automated blood platelet count (count/volume) 273 10*3/uL 130-400 Automated blood platelet mean volume measurement 8.5 [foz_us] 7.4-10.4 Automated blood neutrophils/100 leukocytes 67 % 42-75 Automated blood lymphocytes/100 leukocytes 25 % 12-44 Blood monocytes/100 leukocytes 7 % 0-12 Automated blood eosinophils/100 leukocytes 1 % 0-10 Automated blood basophils/100 leukocytes 0 % 0-10 Blood neutrophils automated count (number/volume) 6.8 10*3 1.8-7.8 Blood lymphocytes automated count (number/volume) 2.6 10*3 1.0-4.0 Blood monocytes automated count (number/volume) 0.7 10*3 0.0-1.0 Automated eosinophil count 0.1 10*3/uL 0.0-0.3 Automated blood basophil count (count/volume) 0.0 10*3/uL 0.0-0.1 Comprehensive metabolic panel - 01/26/19 13:34 Serum or plasma sodium measurement (moles/volume) 137 mmol/L 135-145 Serum or plasma potassium measurement (moles/volume) 3.7 mmol/L 3.6-5.0 Serum or plasma chloride measurement (moles/volume) 101 mmol/L 98-107 Carbon dioxide 23 mmol/L 21-32 Serum or plasma anion gap determination (moles/volume) 13 mmol/L 5-14 Serum or plasma urea nitrogen measurement (mass/volume) 12 mg/dL 7-18 Serum or plasma creatinine measurement (mass/volume) 0.78 mg/dL 0.60-1.30 Serum or plasma urea nitrogen/creatinine mass ratio 15 NRG Serum or plasma creatinine measurement with calculation of estimated glomerular filtration rate > NRG Serum or plasma glucose measurement (mass/volume) 105 mg/dL 70-105 Serum or plasma calcium measurement (mass/volume) 9.9 mg/dL 8.5-10.1 Serum or plasma total bilirubin measurement (mass/volume) 0.6 mg/dL 0.1-1.0 Serum or plasma alkaline phosphatase measurement (enzymatic activity/volume) 83 U/L 40-136 Serum or plasma aspartate aminotransferase measurement (enzymatic activity/ volume) 18 U/L 5-34 Serum or plasma alanine aminotransferase measurement (enzymatic activity/volume ) 23 U/L 0-55 Serum or plasma protein measurement (mass/volume) 7.0 g/dL 6.4-8.2 Serum or plasma albumin measurement (mass/volume) 4.3 g/dL 3.2-4.5 CALCIUM CORRECTED 9.7 mg/dL 8.5-10.1 Encounters ACCT No. Visit Date/Time Discharge Status Pt. Type Provider Facility Loc./Unit Complaint [id number] 12/13/2018 21:23:00 12/13/2018 22:37:00 DIS Emergency ROBERT TRONCOSO MD [facility] ER HIGH BP, FACE FEELING NUMB [id number] 07/15/2018 00:22:00 07/15/2018 23:59:59 CLS Preadmit ASHLEE PRAKASH MD [facility] ONC [id number] 05/06/2018 10:01:00 05/14/2018 00:01:00 DIS Outpatient ASHLEE PRAKASH MD [facility] ONC [id number] 04/22/2018 10:14:00 05/06/2018 10:00:00 DIS Outpatient ASHLEE PRAKASH MD [facility] ONC [id number] 04/22/2018 10:43:00 04/22/2018 23:59:59 CLS Outpatient ASHLEE PRAKASH MD [facility] RAD PULMONARY NODULE [id number] 07/19/2017 11:14:00 07/19/2017 23:59:59 CLS Outpatient CHRISTEN FLORES MD [facility] RAD ABD PAIN [id number] 07/19/2017 11:15:00 07/19/2017 11:15:00 CAN Preadmit ASHLEE PRAKASH MD [facility] RAD GERNERALIZED ABD PAIN [id number] 05/28/2017 10:15:00 05/28/2017 23:59:59 CLS Preadmit ASHLEE PRAKASH MD [facility] RAD PULMONARY NODULE R91.1 [id number] 05/28/2017 10:10:00 05/28/2017 23:59:59 CLS Preadmit ASHLEE PRAKASH MD [facility] RAD PULMONARY NODULE [id number] 05/28/2017 08:50:00 05/28/2017 23:59:59 CLS Outpatient ASHLEE PRAKASH MD [facility] ONC [id number] 03/02/2017 15:37:00 03/05/2017 08:30:00 DIS Outpatient MISSAEL BOWLES DPM [facility] REHAB ACHILLES TENDON RUPTURE CHRONIC [id number] 11/27/2016 12:52:00 02/18/2017 00:01:00 DIS Outpatient CARLOTTA THAO MD [facility] ONC [id number] 02/15/2017 09:28:00 02/15/2017 23:59:59 CLS Outpatient CARLOTTA THAO MD [facility] RAD SCREENING [id number] 02/02/2017 09:42:00 02/02/2017 23:59:59 CLS Outpatient VALDEZ DANIEL APRN [facility] RAD R L FLANK PAIN,ABD PAIN [id number] 11/20/2016 12:53:00 11/20/2016 23:59:59 CLS Outpatient CARLOTTA THAO MD [facility] RAD BREAST CA,MULTIPLE NODULES OF LUNG [id number] 05/01/2016 13:14:00 07/30/2016 00:01:00 DIS Outpatient CARLOTTA THAO MD [facility] ONC [id number] 05/17/2016 08:46:00 05/17/2016 12:10:00 DIS Outpatient ROXANE VILLAVICENCIO MD [facility] SDC HX POLPS [id number] 05/11/2016 05:35:00 05/11/2016 11:10:00 DIS Outpatient ROXANE VILLAVICENCIO MD [facility] PREOP HX POLPS [id number] 02/14/2016 07:24:00 02/14/2016 23:59:59 CLS Outpatient CARLOTTA THAO MD [facility] RAD SCREENING [id number] 09/20/2015 15:06:00 12/19/2015 00:01:00 DIS Outpatient CARLOTTA THAO MD [facility] ONC [id number] 10/27/2015 11:04:00 10/28/2015 17:43:00 DIS Outpatient ROXANE VILLAVICENCIO MD [facility] CHOLELITHIASIS BILIARY COLIC [id number] 05/24/2015 08:05:00 07/14/2015 00:01:00 DIS Outpatient CARLOTTA THAO MD [facility] ONC [id number] 05/31/2015 09:50:00 05/31/2015 23:59:59 CLS Outpatient CARLOTTA THAO MD [facility] RAD BREAST CA,LUNG NODULES [id number] 03/18/2015 14:04:00 04/05/2015 00:01:00 DIS Outpatient CARLOTTA THAO MD [facility] ONC [id number] 02/10/2015 08:31:00 02/10/2015 23:59:59 CLS Outpatient CARLOTTA THAO MD [facility] RAD SCREENING [id number] 12/01/2014 07:01:00 12/01/2014 23:59:59 CLS Outpatient CHRISTEN FLORES MD [facility] RAD TOBACCOISM, HTN UNCONTROLLED [id number] 10/01/2014 09:17:00 10/01/2014 23:59:59 CLS Outpatient CARLOTTA THAO MD [facility] ONC [id number] 08/13/2014 14:21:00 08/13/2014 23:59:59 CLS Outpatient CHRISTEN FLORES MD [facility] RAD R HIP PAIN [id number] 03/17/2014 09:45:00 03/17/2014 23:59:59 CLS Outpatient CARLOTTA THAO MD [facility] ONC [id number] 02/09/2014 07:51:00 02/09/2014 23:59:59 CLS Outpatient CARLOTTA THAO MD [facility] RAD CA BREAST [id number] 09/01/2013 14:16:00 09/01/2013 23:59:59 CLS Outpatient CARLOTTA THAO MD [facility] ONC [id number] 02/18/2013 08:48:00 02/18/2013 23:59:59 CLS Outpatient CARLOTTA THAO MD [facility] ONC [id number] 04/23/2019 10:30:00 PEN Preadmit OLINDA PERDUE, ASHLEE [facility] RAD SCREENING [id number] 01/26/2019 13:22:00 ACT Emergency MARY PERDUE, SUSAN Hernandez [facility] ER RT HIP PAIN, HIT RT SIDE OF HEAD [id number] 12/15/2015 11:08:00 Document Registration [id number] 11/17/2015 08:14:00 Document Registration [id number] 02/10/2015 08:32:00 Document Registration [id number] 02/10/2015 08:32:00 Document Registration [id number] 02/06/2013 07:22:00 Document Registration [id number] 09/19/2012 06:04:00 Document Registration [id number] 09/16/2012 12:45:00 Document Registration [id number] 08/20/2012 09:14:00 Document Registration [id number] 07/16/2012 11:14:00 Document Registration [id number] 03/24/2012 10:27:00 Document Registration [id number] 03/20/2012 15:26:00 Document Registration [id number] 02/13/2012 08:52:00 Document Registration [id number] 02/06/2012 09:12:00 Document Registration [id number] 10/03/2011 09:19:00 Document Registration [id number] 09/28/2011 07:06:00 Document Registration [id number] 09/25/2011 13:08:00 Document Registration [id number] 09/01/2011 10:25:00 Document Registration [id number] 05/10/2011 13:01:00 Document Registration [id number] 02/01/2011 07:29:00 Document Registration [id number] 12/21/2010 10:01:00 Document Registration [id number] 11/01/2010 09:25:00 Document Registration [id number] 08/15/2017 08:27:06 08/15/2017 23:59:59 [facility] Christen Flores
[2019-01-26] MEDS ORDERED: morphine INJ 10 MG/ML 1ML (SYR OR VIAL) IVP ONE ×2 (15:15→19:15)
--- NOTE | 2019-01-26 15:23 | Diagnostic Imaging Report ---
INDICATION: Fall. Hit head on concrete. Hip pain as well. EXAMINATION: Right hip, 01/26/2019. FINDINGS: Two views of the right hip. There is deformity in the region of the femoral neck, suspicious for fracture although given superimposed structures this is difficult to characterize. An intertrochanteric fracture is not excluded. A lucency through the greater trochanter is seen and further imaging would be recommended for better characterization. Deformity of the inferior pubic ramus is seen on the right as well, age-indeterminate. No dislocations. IMPRESSION: 1. Suspected fracture of the right proximal femur but limited, as above. Please see above discussion and recommendations. 2. Deformity of the right inferior pubic ramus, age indeterminate. Dictated by: Dictated on workstation # [id number]
[2019-01-26 16:02] LABS: BILIRUBIN,URINE NEGATIVE (NEGATIVE); CLARITY,URINE CLEAR; COLOR,URINE YELLOW; GLUCOSE, URINE (UA) NEGATIVE (NEGATIVE); KETONES,URINE NEGATIVE (NEGATIVE); LEUKOCYTE ESTERASE ,URINE NEGATIVE (NEGATIVE); NITRITE,URINE NEGATIVE (NEGATIVE); PH,URINE 7 (5-9); PROTEIN,URINE NEGATIVE (NEGATIVE); UROBILINOGEN,URINE NORMAL (NORMAL)
[2019-01-26 16:18] LABS: BACTERIA,URINE NEGATIVE /HPF
--- NOTE | 2019-01-26 16:23 | Diagnostic Imaging Report ---
PROCEDURE: CT right lower extremity without contrast. TECHNIQUE: Axially acquired CT was obtained through the right lower extremity without intravenous contrast. Coronal and sagittal reformations were also performed. Auto Exposure Controls were utilized during the CT exam to meet ALARA standards for radiation dose reduction. INDICATION: Abnormal findings on recent radiographs. Hip pain after fall. EXAMINATION: CT of the right lower extremity 01/26/2019. FINDINGS: Correlation made to radiographs from the same date at an earlier time. There is a fracture involving the mid femoral neck which does extend into the intertrochanteric aspect of the femur. There is mild foreshortening at the fracture site overall comminuted in appearance. No dislocation is seen. Additionally, there is deformity of the inferior right pubic ramus likely an old fracture, correlate with history. Postoperative changes noted along the pubic symphysis bilaterally. Mild deformity of the anterior lateral superior pubic ramus on the right is chronic in appearance as well. The visualized intra-pelvic structures demonstrate evidence of diverticulosis. Atherosclerotic disease also noted. IMPRESSION: 1. Acute appearing mildly displaced and foreshortened intertrochanteric fracture of the right hip. 2. Chronic fractures of the pelvis as above with other incidental findings as noted. Dictated by: Dictated on workstation # [id number]
[2019-01-26] MEDS ORDERED: SEVOFLURANE (ULTANE) 15 ML INHAL SOLN ONE ×3 (17:09→18:44)
[2019-01-26] MEDS ORDERED: fentaNYL INJECTION 100 MCG/2 ML AMP ONE (17:09)
[2019-01-26] MEDS ORDERED: proPOfol 200 MG/20 ML (DIPRIVAN) VIAL IV ONE (17:09)
[2019-01-26] MEDS ORDERED: MIDAZOLAM 2 MG/2 ML (VERSED) VIAL ONE (17:09)
[2019-01-26] MEDS ORDERED: LIDOCAINE PF 2% 5 ML (XYLOCAINE) VIAL ONE (17:09)
[2019-01-26] MEDS ORDERED: DEXAMETHASONE 10 MG/ML (DECADRON) 1 ML VIAL ONE (17:09)
[2019-01-26] MEDS ORDERED: ONDANSETRON 4 MG/2 ML (SDV) Z0FRAN ONE (17:09)
--- NOTE | 2019-01-26 17:10 | NUR ---
Pt taken to surgery.
[2019-01-26] MEDS: LACTATED RINGERS 1,000 ML IV SCH ×2 (17:17→18:45)
[2019-01-26] MEDS ORDERED: CLINDAMYCIN 600 MG/4ML (CLEOCIN) VIAL ONE (17:30)
--- NOTE | 2019-01-26 17:36 | Consultation ---
History of Present Illness History of Present Illness Patient Consulted On(beltran/time) 01/26/19 17:30 Date Seen by Provider: Jan 26, 2019 Time Seen by Provider: 17:31 Reason for Visit: Right hip fracture History of Present Illness Ms. Hammond is a 73 y/o female that presents with acute onset of severe Right hip pain that began secondary to a mechanical fall from a curb earlier today. She subsequently had severe Right hip pain and an inability to bear weight/ambulate on the RLE. She presented to the [facility] ED for evaluation where imaging studies of the Right hip demonstrated a displaced fracture of the Right proximal femur. Orthopedic service was consulted for definitive management of her injury. She does admit to minor head trauma but denies LOC/syncope. She denies neck/back pain; denies other musculoskeletal injuries. She has no additional complaints. Allergies and Home Medications Allergies Coded Allergies: Sulfa (Sulfonamide Antibiotics) (Unverified Allergy, Unknown, RASH, ) amoxicillin (Unverified Allergy, Unknown, 01/26/19) cephalexin (Unverified Allergy, Unknown, 12/21/10) clavulanic acid (Unverified Allergy, Unknown, 01/26/19) levofloxacin (Unverified Allergy, Unknown, 01/26/19) metronidazole (Unverified Allergy, Unknown, 01/26/19) Uncoded Allergies: STEROIDS (Allergy, Unknown, 12/21/10) Home Medications Duloxetine HCl 60 Mg Capsule.dr, 60 MG PO DAILY, (Reported) Furosemide 20 Mg Tablet, 20 MG PO DAILY, (Reported) Lisinopril 10 Mg Tablet, 10 MG PO DAILY Prescribed by: ROBERT TRONCOSO on 12/13/181 Metoprolol Succinate 25 Mg Tab.sr.24h, 25 MG PO BID, (Reported) Patient Home Medication List Home Medication List Reviewed: Yes Past Mbglmtg-Cpjfcw-Zgkgya Hx Past Med/Social Hx: Reviewed Nursing Past Med/Soc Hx Patient Social History Alcohol Use: Denies Use Recreational Drug Use: No Smoking Status: Current Everyday Smoker Type Used: Cigarettes 2nd Hand Smoke Exposure: Yes Recent Foreign Travel: No Contact w/Someone Who Travel: No Recent Infectious Disease Expo: No Recent Hopitalizations: No Physical Abuse: No Sexual Abuse: No Immunizations Up To Date Date of Pneumonia Vaccine: Aug 05, 2013 Date of Influenza Vaccine: Jul 15, 2015 Seasonal Allergies Seasonal Allergies: No Past Medical History Surgeries: Yes (dxls x3, A&P repair x2, ovaries removed, bladder sling, ) Breast Respiratory: No Cardiac: Yes Hypertension Neurological: No 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 Genitourinary: Yes Bladder Infection Gastrointestinal: Yes (hx of polyps, hemorrhoids) Chronic Constipation Musculoskeletal: Yes Degenerate Disk Disease, Fibromyalgia, Chronic Back Pain Endocrine: No HEENT: No Cancer: Yes (BREAST CANCER DX 2004) Breast Psychosocial: Yes Anxiety Integumentary: Yes (SHINGLES ) Blood Disorders: No Review of Systems-General Constitutional: no symptoms reported EENTM: no symptoms reported Respiratory: no symptoms reported Cardiovascular: no symptoms reported Gastrointestinal: no symptoms reported Genitourinary: no symptoms reported Musculoskeletal: joint pain, other (Right hip pain) Skin: no symptoms reported Psychiatric/Neurological: No Symptoms Reported Physical Exam-General Problems Physical Exam Vital Signs Vital Signs - First Documented 01/26/19 13:21 Temp 98.5 Pulse 60 Resp 15 B/P (MAP) 170/87 (114) Pulse Ox 97 O2 Delivery Room Air Capillary Refill : Less Than 3 Seconds Eyes: Bilateral Eye Normal Inspection, Bilateral Eye PERRL, Bilateral Eye EOMI HEENT: PERRL/EOMI, normal ENT inspection Neck: non-tender, full range of motion, supple Respiratory: chest non-tender, no respiratory distress, no accessory muscle use Cardiovascular: normal peripheral pulses, regular rate, rhythm, no edema Peripheral Pulses: 2+ Dorsalis Pedis (R), 2+ Left Dors-Pedis (L), 2+ Radial Pulses (R), 2+ Radial Pulses (L) Gastrointestinal: non tender, soft, no organomegaly, no pulsatile mass Back: normal inspection, no CVA tenderness, no vertebral tenderness Extremities: no pedal edema, no calf tenderness, normal capillary refill, other (RLE: shortened, externally rotated, skin intact, no open wounds, motor/ sensation grossly intact, pain with log roll) Neurologic/Psychiatric: 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 Unstable injury that will need operative stabilization. Plan for ORIF with DHS, possible hemiarthroplasty. I discussed the nature of her injury in detail including the natural history, prognosis and treatment options. She understands the need for operative stabilization. All of her questions have been answered to her satisfaction. She has given informed written consent to proceed as planned. Remain NPO. Plan for surgery today. Admission Status: Inpatient Order (span 2 midnights) SUSHIL DOBBS DO Jan 26, 2019 17:36
--- NOTE | 2019-01-26 18:59 | Progress Note-Post Operative ---
Post-Operative Progess Note Surgeon (s)/Heeler Machine (s) Surgeon SUSHIL DOBBS DO Heeler Machine: Ezekiel Franco PA-C Pre-Operative Diagnosis Right hip fracture Post-Operative Diagnosis Same Procedure & Operative Findings Date of Procedure 01/26/19 Procedure Performed/Findings ORIF Right proximal femur fracture Anesthesia Type GETA Estimated Blood Loss Estimated blood loss (mL): 200 Specimens/Packing Specimens Removed None Packing: Drains: none Disposition: tolerated the procedure well; transferred to PACU in stable condition SUSHIL DOBBS DO Jan 26, 2019 18:59
[2019-01-26] MEDS ORDERED: MILK OF MAGNESIA 400 MG/5 ML 30 ML UDC PO PRN (19:00)
[2019-01-26] MEDS ORDERED: morphine INJ 4 MG/ML 1 ML (VIAL/SYRINGE) IV PRN (19:00)
[2019-01-26] MEDS ORDERED: ONDANSETRON 4 MG/2 ML (SDV) Z0FRAN IV PRN (19:00)
[2019-01-26] MEDS ORDERED: MEPERIDINE (DEMEROL) INJ 50 MG/ML IVP ONE (19:15)
[2019-01-26] MEDS ORDERED: ONDANSETRON 4 MG/2 ML (SDV) Z0FRAN IVP PRN (19:15)
[2019-01-26] MEDS ORDERED: morphine INJ 4 MG/ML 1 ML (VIAL/SYRINGE) ONE (19:26)
[2019-01-26 19:55] VITALS: BP 174/94
--- NOTE | 2019-01-26 19:55 | NUR ---
CAMDEN CARLIN admitted to room 431-1, with an admitting diagnosis of right hip fracture, on 01/26/19 from ER/PAR via BED, accompanied by PAR nurse, DoraRN. CAMDEN CARLIN introduced to surroundings, call light, bed controls, phone, TV, temperature control, lights, meal times, smoking policy, visitor policy, side rail policy, bathrooms and showers. Patient Rights given to patient in the handbook. CAMDEN CARLIN verbalizes understanding that [facility] is not responsible for the loss or damage to any personal effects or valuables that are kept in the patients possession during their hospitalization. at bedside.
[2019-01-26 19:57] VITALS: BP 176/80
[2019-01-26] MEDS ORDERED: DOCUSATE SODIUM 100 MG (COLACE) CAP PO ONE (20:26)
[2019-01-26] MEDS: DOCUSATE SODIUM 100 MG (COLACE) CAP PO SCH ×2 (20:29→20:31)
[2019-01-27 00:32] VITALS: BP 112/70
--- NOTE | 2019-01-27 00:59 | Diagnostic Imaging Report ---
Examination: Intraoperative fluoroscopy of the right hip INDICATION: Right hip surgery. COMPARISONS: Right lower extremity and right hip radiographs also performed today. TECHNIQUE: Fluoroscopy support was provided. There was no radiologist in attendance. Fluoroscopy: 58 seconds Number of views: 3 FINDINGS: Intraoperative views of the right hip were obtained. Internal fixation hardware is demonstrated in the proximal right femur and femoral head. IMPRESSION: Intraoperative fluoroscopy obtained during right hip surgery. Dictated by: Dictated on workstation # [id number]
[2019-01-27] MEDS ORDERED: LISI-552 PO (01:03)
[2019-01-27] MEDS: CLINDAMYCIN 600 MG/50 ML IVPB 50 ML IV SCH ×3 (01:56→17:04)
[2019-01-27] MEDS: NS IV 1000 ML 1,000 ML IV SCH ×4 (01:57→21:13)
--- NOTE | 2019-01-27 03:15 | OPERATIVE REPORT ---
DATE OF SERVICE: 01/26/2019 PREOPERATIVE DIAGNOSIS: Displaced fracture, right proximal femur. POSTOPERATIVE DIAGNOSIS: Displaced fracture, right proximal femur. PROCEDURE: Closed reduction with internal fixation of displaced fracture, right proximal femur. ATTENDING SURGEON: Dr. Sushil Dobbs. ACCOUNT PROCESSOR: Ezekiel Franco PA-C; MrHuber Franco's assistance was required secondary to the complexity of the case, to hold the necessary retractors protecting vital neurovascular structures and to increase the efficiency and efficacy of the case; this case was not been possible without the presence of an assistant front office manager. IMPLANTS USED: The Synthes dynamic hip screw with a size 90 mm lag screw and a 2 hole 4.5 mm plate with 135 degree proximal angle. ANESTHESIA: General endotracheal. ESTIMATED BLOOD LOSS: 200 mL. COMPLICATIONS: None. SPECIMENS: None. DRAINS: None. BRIEF HISTORY AND INDICATIONS: The patient is a 73-year-old female who earlier today sustained a mechanical fall from standing height trying to step off of a curb and landing onto her right hip. She subsequently had severe right hip pain and an inability to bear weight or ambulate on her right lower extremity. She presented to the [facility] Emergency Department for evaluation. Upon presentation, plain radiographs of the right hip demonstrated a displaced fracture of the right proximal femur. Advanced imaging study in the way of a CT scan of the pelvis did demonstrate a displaced fracture of the right proximal femur with a subcapital femoral neck component as well as a basicervical component that did extend into the intertrochanteric area. On exam, the patient's right lower extremity had intact motor and sensory function, her skin was intact, there were no open wounds, the foot was well perfused. The patient did have significant pain in the right hip with log roll. She had no neck pain and she had denied any other musculoskeletal injuries. She also denied any significant head trauma or loss of consciousness. I explained the nature of her injury in detail including the prognosis, including the natural history, prognosis and treatment options. I discussed in detail, the need for operative fixation due to instability of her injury. Operative plan was for primary fixation, so as to save her skull valley hip joint. I did discuss that due to the nature of the fracture morphology that there would be a risk for potential avascular necrosis and/or hardware failure, which would necessitate hip replacement at some point in the future. After discussing the treatment plan with the patient and her in detail including the risks, benefits, potential complications, expected outcomes, indications and alternatives, the patient gave informed and written consent to proceed as planned. All of her questions were answered to her satisfaction. PROCEDURE NOTE: After correctly identifying the patient in the preoperative holding area and after her right hip was appropriately marked, she was transferred to the operating room. Once in the operating room, she had successful induction of general endotracheal anesthesia. Then, she was transferred to a radiolucent fracture table and placed in the supine position. All bony prominences were meticulously padded. The operative right lower extremity was secured to the fracture table in standard stable fashion and the contralateral well leg was also secured to the contralateral Spyder to the fracture table and placed in the scissor position. I then completed a closed reduction maneuver under fluoroscopic guidance. A C-arm fluoroscopy confirmed that the fracture and the proximal femur were in acceptable alignment prior to proceeding with the case. The operative site was then prepped and draped in routine sterile fashion. Prior to beginning the case, we completed an operating room timeout with all parties involved in the case and agreement and verified appropriate infusion of prophylactic antibiotics. Using a 10 blade scalpel, I made a small incision of approximately 5 cm in length on the proximal lateral aspect of the right lower extremity incising through the skin and subcutaneous tissue. Bovie cautery was then used to dissect through the IT band and the fascia of the vastus lateralis thereby gaining access to the cortex of the proximal lateral femur. Then, using the 135-degree guide pin guide, the guide pin for the Synthes dynamic hip screw was introduced into the proximal femur into the appropriate position under AP and lateral C-arm guidance. We then measured for the length of the lag screw, which was 90 mm. We then used the step reamer to prepare the path for the DHS lag screw. The lag screw was then introduced over the guide pin into the appropriate position into the proximal femoral head and neck. The 2-hole DHS plate was then introduced over the guide pin and applied into the appropriate position and then fixation was secured through the plate with two 4.5 mm cortical screws. Guide pin was removed. We then used the dynamic compression screw to create compression across the fracture site. This completed fixation. Final AP and lateral C-arm images have confirmed that the hardware was in an acceptable position and that the fracture remained in acceptable alignment as well in both AP and lateral planes. The wound was then irrigated with copious amounts of sterile saline and then was closed in layers in the standard fashion using 0 Vicryl for the fascia of the vastus lateralis and IT band, followed by 2-0 Vicryl for the subcutaneous tissue and sundar for the skin. The patient then had a sterile dressing applied followed by being awakened and extubated in the operating room without incident. She was then transferred to the PACU in stable condition. She tolerated the procedure quite well without complications. All counts were correct at the end of the case. POSTOP PLAN AND PROGNOSIS: The patient will be admitted to the floor from the PACU. She will begin physical therapy and occupational therapy on postoperative day #1. She will be made toe-touch weightbearing on her right lower extremity for a minimum of 6 weeks. She will be given the appropriate DVT prophylaxis in the way of Lovenox in the hospital, she will be discharged on aspirin for post-hospital DVT prophylaxis. She will also be given the appropriate pain control regimen as well as postoperative prophylactic antibiotics. Her disposition will be either home or inpatient rehabilitation depending on her progress with physical therapy and the postoperative hospital course. In terms of her prognosis, I would say that due to the morphology of her fracture, her prognosis is guarded. I did explain to her and her that there is a risk of hardware failure in which case, a total hip arthroplasty would be indicated. Job ID: [id number] DocumentID: [id number] Dictated Date: 01/26/2019 19:15:05 Revising Clerk Date: 01/27/2019 03:14:42 Dictated By: SUSHIL DOBBS
[2019-01-27 04:00] VITALS: BP 97/61
[2019-01-27 06:15] LABS: HEMOGLOBIN 11.9 G/DL (11.5-16.0)
--- NOTE | 2019-01-27 07:44 | Progress Note (SOAP) ---
Subjective Date Seen by a Provider: Jan 27, 2019 Time Seen by a Provider: 07:42 Subjective/Events-last exam LEEANNE. Doing well. Her pain is well controlled. Denies N/V/CP/SOB. Objective Exam Vital Signs Date Time Temp Pulse Resp B/P (MAP) Pulse Ox O2 Delivery O2 Flow Rate FiO2 01/27/19 04:00 97.9 76 18 97/61 (73) 96 Nasal Cannula 3.00 01/27/19 00:32 97.6 79 16 112/70 (84) Nasal Cannula 3.00 01/26/19 22:23 Nasal Cannula 3.00 01/26/19 19:57 97.4 78 20 176/80 (112) 97 Nasal Cannula 3.00 01/26/19 19:55 Nasal Cannula 3.00 01/26/19 19:55 99.1 60 18 174/94 95 Nasal Cannula 3.00 3.00 01/26/19 19:50 99.1 18 95 Nasal Cannula 3 01/26/19 19:40 16 94 Nasal Cannula 3 01/26/19 19:30 18 96 01/26/19 19:20 16 95 01/26/19 19:10 16 94 01/26/19 19:00 97.4 16 96 OxyMask 10 01/26/19 17:10 98.5 60 15 159/82 (107) 97 Room Air 01/26/19 13:21 98.5 60 15 170/87 (114) 97 Room Air I & O 01/27/19 07:00 Intake Total 4750 ml Output Total 2100 ml Balance 2650 ml Capillary Refill : Less Than 3 SecondsLess Than 3 Seconds General Appearance: No Apparent Distress Extremity: Other (RLE: Dressings CDI, 5/5 dorsiflexion, SILT all dermatomes) Results Lab Laboratory Tests 01/26/19 13:34: White Blood Count 10.3, Red Blood Count 4.66, Hemoglobin 15.0, Hematocrit 43, Mean Corpuscular Volume 93, Mean Corpuscular Hemoglobin 32, Mean Corpuscular Hemoglobin Concent 35, Red Cell Distribution Width 13.9, Platelet Count 273, Mean Platelet Volume 8.5, Neutrophils (%) (Auto) 67, Lymphocytes (%) (Auto) 25, Monocytes (%) (Auto) 7, Eosinophils (%) (Auto) 1, Basophils (%) (Auto) 0, Neutrophils # (Auto) 6.8, Lymphocytes # (Auto) 2.6, Monocytes # (Auto) 0.7, Eosinophils # (Auto) 0.1, Basophils # (Auto) 0.0, Sodium Level 137, Potassium Level 3.7, Chloride Level 101, Carbon Dioxide Level 23, Anion Gap 13, Blood Urea Nitrogen 12, Creatinine 0.78, Estimat Glomerular Filtration Rate > 60, BUN/ Creatinine Ratio 15, Glucose Level 105, Calcium Level 9.9, Corrected Calcium 9.7 , Total Bilirubin 0.6, Aspartate Amino Transf (AST/SGOT) 18, Alanine Aminotransferase (ALT/SGPT) 23, Alkaline Phosphatase 83, Total Protein 7.0, Albumin 4.3 01/26/19 15:55: Urine Color YELLOW, Urine Clarity CLEAR, Urine pH 7, Urine Specific Munson 1.005L, Urine Protein NEGATIVE, Urine Glucose (UA) NEGATIVE, Urine Ketones NEGATIVE, Urine Nitrite NEGATIVE, Urine Bilirubin NEGATIVE, Urine Urobilinogen NORMAL, Urine Leukocyte Esterase NEGATIVE, Urine RBC (Auto) 2+H, Urine RBC NONE , Urine WBC NONE, Urine Crystals NONE, Urine Bacteria NEGATIVE, Urine Casts NONE , Urine Mucus NEGATIVE, Urine Culture Indicated NO 01/27/19 05:21: Hemoglobin 11.9#, Hematocrit 35 Assessment/Plan Assessment/Plan Assess & Plan/Chief Complaint ASSESSMENT: s/p R hip pelon POD 1 PLAN: OOB with assist WBAT hip XR today DVT prophy per dr merida Final Diagnosis R femoral neck fracture Clinical Quality Measures DVT/VTE Risk/Contraindication: Risk Factor Score Per Nursin RFS Level Per Nursing on Admit: 4+=Very High CHAPARRO RILEY DO Jan 27, 2019 07:44
[2019-01-27 08:00] VITALS: BP 108/53
--- NOTE | 2019-01-27 08:54 | Physical Therapy Evaluation ---
PT Evaluation-General Medical Diagnosis Admission Date Jan 26, 2019 at 16:30 Medical Diagnosis: right hip fracture Onset Date: Jan 26, 2019 Therapy Diagnosis Therapy Diagnosis: impaired mobility, strength, endurance Height/Weight Height (Feet): 5 Height (Inches): 8.00 Weight (Pounds): 160 Weight (Ounces): 0.0 Precautions Precautions/Isolations: Fall Prevention, Standard Precautions Weight Bear Status Right Lower Extremity: Right Touch Toe Bearing Left Lower Extremity: Left Full Weight Bearing Referral Physician: Todd Rodríguez DO Reason for Referral: Evaluation/Treatment Medical History Pertinent Medical History: Smoking Additional Medical History Past Medical History Surgeries: Yes (dxls x3, A&P repair x2, ovaries removed, bladder sling, ) Breast Respiratory: No Cardiac: Yes Hypertension Neurological: No 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 Genitourinary: Yes Bladder Infection Gastrointestinal: Yes (hx of polyps, hemorrhoids) Chronic Constipation Musculoskeletal: Yes Degenerate Disk Disease, Fibromyalgia, Chronic Back Pain Endocrine: No HEENT: No Cancer: Yes (BREAST CANCER DX 2003) Breast Psychosocial: Yes Anxiety Integumentary: Yes (SHINGLES ) Reviewed History: Yes Social History Home: Single Level Current Living Status: Spouse Entry Into Home: Stairs With Railing PT Steps Into Home: 3 Prior/Core FIM Prior Level of Function Therapy Code Descriptions/Definitions Functional [place] Measure: 0=Not Assessed/NA 4=Minimal Assistance 1=Total Assistance 5=Supervision or Setup 2=Maximal Assistance 6=Modified [place] 3=Moderate Assistance 7=Complete [place] Therapy Quality Codes: 6 Independent with activity with or without an assistive device 5 Patient requires set up or clean up by helper. Patient completes activity by themselves 4 Supervision or touching assist (CGA). [place] provide cues , steadying assist 3 The helper provides less than half the effort to complete the activity 2 The helper provides more than half the effort to complete the activity 1 Dependent. The helper does all the effort to complete an activity 7 Patient refused to complete or attempt activity 9 The patient did not perform the activity before the current illness or injury 88 Not attempted due to Medical conditions or safety concerns Functional Abilities and Goals: Independent: Patient completed the activities by him/herself, with or without an assistive device, with no assistance from a helper. Needed Some Help: Patient needed partial assistance from another person to complete activities. Dependent: A helper completed the activities for the patient. Unknown: Not Applicable: Bed Mobility: 7 Transfers (B,C,W/C) (FIM): 7 Gait: 7 Stairs: 7 Indoor Mobility (Ambulation): Independent Stairs: Independent PT Evaluation-Current Subjective Patient in bed pre tx, agrees to PT, has 5/10 pain. Pt/Family Goals to be independent at home Objective Patient Orientation: Person, Place, Situation Attachments: Oxygen, IV ROM/Strength ROM Lower Extremities NT Strength Lower Extremities NT Neuromuscular (Tone, Coordination, Reflexes) NT Sensory Vision: Wears Glasses Hearing: Functional Sensation Right Lower Extremit: Intact Sensation Left Lower Extremity: Intact Transfers Therapy Code Descriptions/Definitions Functional [place] Measure: 0=Not Assessed/NA 4=Minimal Assistance 1=Total Assistance 5=Supervision or Setup 2=Maximal Assistance 6=Modified [place] 3=Moderate Assistance 7=Complete [place] Transfers (B, C, W/C) (FIM): 3 Scootin Rollin Supine to/from Sit: 3 Sit to/from Stand: 4 bed t/f WC(FIM only if WC use): 4 bed mobility and supine to sit mod assist, sit to stand CGA and cues for hand placement and positioning Gait Mode of Locomotion: Walk Anticipated Mode of Locomotion: Walk Gait (FIM): 1 Distance: 15' Gait Level of Assist: 4 Gait Persons Needed: 1 Gait Assistive Device: FWW Comments/Gait Description Antalgic ambulation, slow, decreased flexion right knee. Balance Sitting Static: Normal Sitting Dynamic: Normal Standing Static: Good Standing Dynamic: Good Treatment seated exercises x15 (AP, LAQ) Assessment/Needs Patient has impaired mobility, strength, endurance post right hip fracture. Patient in chair post tx with nurse call, phone, tray, in the room. Rehab Potential: Fair PT Short Term Goals Short Term Goals Time Frame: Feb 03, 2019 Transfers (B,C,W/C) (FIM): 4 Gait (FIM): 2 Gait Distance Comment: 50' Gait Level of Assist: 4 Gait Assistive Device: FWW PT Plan Problem List Problem List: Activity Tolerance, Functional Strength, Safety, Balance, Gait, Transfer, Bed Mobility, ROM Treatment/Plan Treatment Plan: Continue Plan of Care Treatment Plan: Bed Mobility, Education, Functional Activity Martina, Functional Strength, Gait, Safety, Therapeutic Exercise, Transfers Treatment Duration: Feb 03, 2019 Frequency: 11 times per week Estimated Hrs Per Day: .25 hour per day (15-30') Patient and/or Family Agrees t: Yes Safety Risks/Education Patient Education: Gait Training, Transfer Techniques, Reviewed Precautions, Correct Positioning, Safety Issues Teaching Recipient: Patient Teaching Methods: Demonstration, Discussion Response to Teaching: Reinforcement Needed Discharge Recommendations Plan Patient will perform bed mobility and transfer training, balance and endurance training, functional strengthening, stair training, gait training, and education , to improve functional mobility and independence at home. Therapy D/C Recommendations: Home w/ Family Support Time/GCodes Time In: 0830 Time Out: 0850 Total Billed Treatment Time: 20 Total Billed Treatment 1 visit EVM 20' PRUDENCE RODRIGUEZ PT Jan 27, 2019 08:54
--- NOTE | 2019-01-27 08:55 | History & Physicial ---
History of Present Illness History of Present Illness Reason for visit/HPI PT IS A 73 Y/O FEMALE WHO IS WELL KNOWN TO ME FROM CLINIC. SHE PRESENTED TO THE EMERGENCY DEPARTMENT YESTERDAY EVENING WITH RIGHT HIP PAIN. SHE WAS FOUND TO HAVE AN ACUTE RIGHT HIP FRACTURE AND WAS TAKEN TO SURGERY BY DR. DOBBS. TODAY SHE REPORTS THAT SHE IS FEELING..... Date of Admission Jan 26, 2019 at 16:30 I consulted on this patient on 01/27/19 08:54 Attending Physician Kevin Rose MD Admitting Physician Christen George MD Consult Allergies and Home Medications Allergies Coded Allergies: Sulfa (Sulfonamide Antibiotics) (Unverified Allergy, Unknown, RASH, ) amoxicillin (Unverified Allergy, Unknown, 01/26/19) cephalexin (Unverified Allergy, Unknown, 12/21/10) clavulanic acid (Unverified Allergy, Unknown, 01/26/19) levofloxacin (Unverified Allergy, Unknown, 01/26/19) metronidazole (Unverified Allergy, Unknown, 01/26/19) Uncoded Allergies: STEROIDS (Allergy, Unknown, 12/21/10) Home Medications Duloxetine HCl 60 Mg Capsule.dr, 60 MG PO DAILY, (Reported) Famotidine 20 Mg Tablet, 20 MG PO DAILY PRN for INDIGESTION, (Reported) Furosemide 20 Mg Tablet, 20 MG PO DAILY, (Reported) Lisinopril 20 Mg Tablet, 20 MG PO BID, (Reported) Metoprolol Succinate 25 Mg Tab.sr.24h, 25 MG PO BID, (Reported) Past Gniclqf-Kvdcow-Cofxlb Hx Patient Social History Alcohol Use: Denies Use Recreational Drug Use: No Smoking Status: Current Everyday Smoker Type Used: Cigarettes 2nd Hand Smoke Exposure: Yes Physical Abuse Screen: No Sexual Abuse: No Recent Foreign Travel: No Contact w/other who traveled: No Recent Hopitalizations: No Recent Infectious Disease Expo: No Immunizations Up To Date Date of Pneumonia Vaccine: Jun 18, 2018 Date of Influenza Vaccine: Jul 15, 2015 Seasonal Allergies Seasonal Allergies: No Surgeries Yes (dxls x3, A&P repair x2, ovaries removed, bladder sling, ) Breast Respiratory No Cardiovascular Yes Hypertension Neurological No Reproductive System Hx Reproductive Disorders: No 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: 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 Genitourinary Yes Bladder Infection Gastrointestinal Yes (hx of polyps, hemorrhoids) Chronic Constipation, Diverticulosis Musculoskeletal Yes Degenerate Disk Disease, Fibromyalgia, Chronic Back Pain Endocrine History of Endocrine Disorders: No HEENT History of HEENT Disorders: No Cancer Yes (BREAST CANCER DX 2003) Breast Psychosocial History of Psychiatric Problem: Yes Behavioral Health Disorders: Anxiety Integumentary History of Skin or Integumenta: Yes (SHINGLES ) Blood Transfusions History of Blood Disorders: No Family Medical History Family Hx: FH: bladder cancer 19 FATHER Kidney disease 19 FATHER Myocardial infarction 19 FATHER 19 MOTHER G8 BROTHER Physical Exam Vital Signs Vital Signs - First Documented 01/26/19 01/26/19 13:21 19:00 Temp 98.5 Pulse 60 Resp 15 B/P (MAP) 170/87 (114) Pulse Ox 97 O2 Delivery Room Air O2 Flow Rate 10 Capillary Refill : Less Than 3 SecondsLess Than 3 Seconds Height, Weight, BMI Height: 5'8.00" Weight: 160lbs. 0.0oz. [id number]; 24.3 BMI Method:Stated Assessment/Plan Assessment and Plan INTERTROCHANTERIC FRACTURE RIGHT HIP TOBACCOISM HYPERTENSION DEPRESSION ESOPHAGEAL REFLUX Clinical Quality Measures DVT/VTE Risk/Contraindication: Risk Factor Score Per Nursin RFS Level Per Nursing on Admit: 4+=Very High CHRISTEN GEORGE MD Jan 27, 2019 08:55
[2019-01-27] MEDS: ENOXAPARIN 40 MG/0.4 ML (LOVENOX) SYR SC SCH (08:57)
[2019-01-27] MEDS: HYDROcodone/APAP 5 MG/325 MG (LORTAB) TAB PO PRN ×3 (08:57→18:21)
[2019-01-27] MEDS: DOCUSATE SODIUM 100 MG (COLACE) CAP PO SCH ×2 (08:57→21:13)
--- NOTE | 2019-01-27 10:27 | NUR ---
Met with pt who is and lives with her locally. Pt fractured her hip after a fall and surgery was completed yesterday. Pt is active and independent and wants to return home. Explained continued care options and she is not at all interested in halfway placement . She would consider Acute Rehab stay if brief and she can return home with home therapies when able.
[2019-01-27] MEDS ORDERED: NAPR-915 PO (11:11)
[2019-01-27] MEDS ORDERED: FURO20TA4 PO (11:11)
[2019-01-27] MEDS ORDERED: METO-387 PO (11:11)
--- NOTE | 2019-01-27 11:13 | NUR ---
SPOKE WITH THE PATIENT ABOUT HER MEDICATIONS, SHE HAD HER 4 MAIN PRESCRIPTION BOTTLES WITH HER AND VERIFIED HOW SHE TAKES THEM. I COMPARED THEM WITH THE EXT MED HX. HER LISINOPRIL DOSE HAS BEEN INCREASED FROM 10 BID TO 20 BID. SHE STATES SHE DOES TAKE THE PEPCID AND NAPROXEN BUT ONLY NEEDED.
[2019-01-27 12:00] VITALS: BP 127/70
[2019-01-27] MEDS ORDERED: PATIENT MAY USE OWN MEDS, ALL MC SCH ×2 (13:00)
[2019-01-27] MEDS ORDERED: PATIENT MAY USE OWN MED,SINGLE MED PO SCH (13:00)
--- NOTE | 2019-01-27 13:34 | Physical Therapy Daily Note ---
PT Daily Note-Current Subjective Patient in bed pre tx, agrees to PT, has pain of 5/10 Appearance Patient in bed post tx with nurse call, phone, tray, all needs met. Has OT right after PT. Mental Status Patient Orientation: Person, Place, Situation Attachments: Oxygen, Garza Catheter, IV Transfers Therapy Code Descriptions/Definitions Functional [place] Measure: 0=Not Assessed/NA 4=Minimal Assistance 1=Total Assistance 5=Supervision or Setup 2=Maximal Assistance 6=Modified [place] 3=Moderate Assistance 7=Complete [place] Therapy Quality Codes: 6 Independent with activity with or without an assistive device 5 Patient requires set up or clean up by helper. Patient completes activity by themselves 4 Supervision or touching assist (CGA). [place] provide cues , steadying assist 3 The helper provides less than half the effort to complete the activity 2 The helper provides more than half the effort to complete the activity 1 Dependent. The helper does all the effort to complete an activity 7 Patient refused to complete or attempt activity 9 The patient did not perform the activity before the current illness or injury 88 Not attempted due to Medical conditions or safety concerns Transfers (B, C, W/C) (FIM): 4 Scootin Rollin Supine to/from Sit: 4 Sit to/from Stand: 4 Min assist with right leg for supine to sit. Weight Bearing Right Lower Extremity: Right Touch Toe Bearing Left Lower Extremity: Left Full Weight Bearing Gait Training Gait (FIM): 1 Distance: 25' Gait Level of Assist: 4 Gait Persons Needed: 1 Gait Assistive Device: FWW Slow ambulation, has TTWB now and she is complaint with that. Exercises Supine Ex: Ankle pumps, Quad Set, Glut sets, Heel Slides, Short Arc Quads, Straight leg raise, Hip abd/add Supine Reps: 10 Treatments bed mobility and transfers, ambulation, functional strengthening Assessment Current Status: Fair Progress improved ambulation and bed mobility PT Short Term Goals Short Term Goals Time Frame: Feb 03, 2019 Transfers (B,C,W/C) (FIM): 4 Gait (FIM): 2 Gait Distance Comment: 50' Gait Level of Assist: 4 Gait Assistive Device: FWW PT Plan Problem List Problem List: Activity Tolerance, Functional Strength, Safety, Balance, Gait, Transfer, Bed Mobility, ROM Treatment/Plan Treatment Plan: Continue Plan of Care Treatment Plan: Bed Mobility, Education, Functional Activity Martina, Functional Strength, Gait, Safety, Therapeutic Exercise, Transfers Treatment Duration: Feb 03, 2019 Frequency: 11 times per week Estimated Hrs Per Day: .25 hour per day (15-30') Patient and/or Family Agrees t: Yes Safety Risks/Education Patient Education: Gait Training, Transfer Techniques, Correct Positioning, Safety Issues Teaching Recipient: Patient Teaching Methods: Demonstration, Discussion Response to Teaching: Reinforcement Needed Time/GCodes Time In: 1305 Time Out: 1325 Total Billed Treatment Time: 20 Total Billed Treatment 1 visit FA 20' PRUDENCE RODRIGUEZ PT Jan 27, 2019 13:34
[2019-01-27] MEDS ORDERED: FAMOTIDINE 20 MG (PEPCID) TABLET PO PRN (13:45)
--- NOTE | 2019-01-27 14:12 | Anesthesia-General Post-Op ---
General Patient Condition Mental Status/LOC: Same as Preop Cardiovascular: Satisfactory Nausea/Vomiting: Absent Respiratory: Satisfactory Pain: Controlled (Her pain is currently controlled with pain medications.) Complications: Absent Post Op Complications Complications None Follow Up Care/Instructions Patient Instructions None needed. Anesthesia/Patient Condition Patient Condition Patient is doing well, no complaints, stable vital signs, no apparent adverse anesthesia problems. CARMENZA DELGADO DO Jan 27, 2019 14:12
[2019-01-27] MEDS: FUROSEMIDE 20 MG (LASIX) TAB PO SCH (14:36)
[2019-01-27] MEDS: DULOXETINE 60 MG CAPSULE PO SCH (14:37)
--- NOTE | 2019-01-27 15:08 | Occupational Therapy Eval ---
OT Evaluation-General/PLF Medical Diagnosis Admission Date Jan 26, 2019 at 16:30 Medical Diagnosis: right hip fracture/pelon Onset Date: Jan 26, 2019 Therapy Diagnosis Therapy Diagnosis: Weakness Height/Weight Height (Feet): 5 Height (Inches): 8.00 Weight (Pounds): 160 Weight (Ounces): 0.0 Precautions Precautions/Isolations: Fall Prevention, Standard Precautions Referral Physician: Todd Rodríguez DO Referral Reason: Activity Tolerance, Self Care, Evaluation/Treatment, Strengthening/ROM Medical History Pertinent Medical History: Smoking Additional Medical History DDD, Fibromyalgia, Breast CA Current History Pt. fell coming out of restaurant and sustained right hip fx. Reviewed History: Yes Social History Home: Single Level Current Living Status: Spouse Entry Into Home: Stairs With Railing Steps Into Home: 3 ADL-Prior Level of Function Therapy Code Descriptions/Definitions Functional [place] Measure: 0=Not Assessed/NA 4=Minimal Assistance 1=Total Assistance 5=Supervision or Setup 2=Maximal Assistance 6=Modified [place] 3=Moderate Assistance 7=Complete [place] Therapy Quality Codes: 6 Independent with activity with or without an assistive device 5 Patient requires set up or clean up by helper. Patient completes activity by themselves 4 Supervision or touching assist (CGA). [place] provide cues , steadying assist 3 The helper provides less than half the effort to complete the activity 2 The helper provides more than half the effort to complete the activity 1 Dependent. The helper does all the effort to complete an activity 7 Patient refused to complete or attempt activity 9 The patient did not perform the activity before the current illness or injury 88 Not attempted due to Medical conditions or safety concerns Functional Abilities and Goals: Independent: Patient completed the activities by him/herself, with or without an assistive device, with no assistance from a helper. Needed Some Help: Patient needed partial assistance from another person to complete activities. Dependent: A helper completed the activities for the patient. Unknown: Not Applicable: ADL PLOF Comments Pt. was independent with daily tasks prior to this hospitalization. Self Care: Independent Functional Cognition: Independent DME/Equipment: Shower DME/Equipment Comments Pt. has a walker that belonged to her mother. Does not use it. Drive Self: Yes OT Current Status Subjective Pt. states that she just received pain medication and it is "starting to kick in." Does not report a pain level. Appearance Pt. in bed. Had just returned to bed from physical therapy. Mental Status/Objective Patient Orientation: Person, Place, Time, Situation Current Glasses/Contacts: Yes Hand Dominance: Right Upper Extremity ROM WFL Upper Extremity Strength WFL ADL-Treatment Therapy Code Descriptions/Definitions Functional [place] Measure: 0=Not Assessed/NA 4=Minimal Assistance 1=Total Assistance 5=Supervision or Setup 2=Maximal Assistance 6=Modified [place] 3=Moderate Assistance 7=Complete [place] Therapy Quality Codes: 6 Independent with activity with or without an assistive device 5 Patient requires set up or clean up by helper. Patient completes activity by themselves 4 Supervision or touching assist (CGA). [place] provide cues , steadying assist 3 The helper provides less than half the effort to complete the activity 2 The helper provides more than half the effort to complete the activity 1 Dependent. The helper does all the effort to complete an activity 7 Patient refused to complete or attempt activity 9 The patient did not perform the activity before the current illness or injury 88 Not attempted due to Medical conditions or safety concerns Lower Body Dressing (FIM): 1 (Due to hip precautions.) Pt. had just returned to bed from physical therapy. Declined OOB activity at this time. Spouse in room. Spoke with both pt. and spouse regarding hip precautions and surgery. Both had many questions regarding what surgery she had , and what her precautions were. OT also educated them on AE, and will begin this training tomorrow. Spoke with pt. regarding home set up and equipment needs. Pt. verbalizes understanding. Education OT Patient Education: Correct positioning, Modified ADL techniques, Progress toward Goal/Update tx plan, Purpose of tx/functional activities, Reviewed precautions, Rehab process, Transfer techniques, Use of adapted equipment Teaching Recipient: Patient Teaching Methods: Demonstration, Discussion Response to Teaching: Verbalize Understanding, Return Demonstration OT Short Term Goals Short Term Goals Time Frame: Feb 03, 2019 Eating(FIM): 5 Grooming(FIM): 5 Bathing(FIM): 4 Upper Body Dressing(FIM): 5 Lower Body Dressing(FIM): 4 Toileting(FIM): 4 Transfers (B,C,W/C) (FIM): 4 Toilet/Commode Transfer(FIM): 4 Shower Transfer(FIM): 4 Additional Short Term Goals: 1-Demonstrate ADL Tasks, 2-Verbalize Understanding , 3-ImproveStrength/Martina 1=Demonstrate adherence to instructed precautions during ADL tasks. 2=Patient will verbalize/demonstrate understanding of assistive devices/ modifications for ADL. 3=Patient will improve strength/tolerance for activity to enable patient to perform ADL's. OT Cut And Cover Line Worker Goals Cut And Cover Line Worker Goals Time Frame: Feb 10, 2019 Eating (FIM): 6 Grooming(FIM): 6 Bathing(FIM): 5 Upper Body Dressing(FIM): 6 Lower Body Dressing(FIM): 5 Toileting(FIM): 6 Transfers (B,C,W/C) (FIM): 6 Toilet/Commode Transfer(FIM): 6 Shower Transfer(FIM): 5 Additional Goals: 1-Demonstrate ADL Tasks, 2-Verbalize Understanding, 3- ImproveStrength/Martina 1=Demonstrate adherence to instructed precautions during ADL tasks. 2=Patient will verbalize/demonstrate understanding of assistive devices/ modifications for ADL. 3=Patient will improve strength/tolerance for activity to enable patient to perform ADL's. OT Education/Plan Problem List/Assessment Assessment: Decreased Activ Tolerance, Impaired Bed Mobility, Impaired I ADL's , Impaired Self-Care Skills Discharge Recommendations Plan/Recommendations: Continue POC Therapy D/C Recommendations: Acute Rehab Treatment Plan/Plan of Care Treatment,Training & Education: Yes Patient would benefit from OT for education, treatment and training to promote independence in ADL's, mobility, safety and/or upper extremity function for ADL' s. Plan of Care: ADL Retraining, Functional Mobility, UE Funct Exercise/Act Treatment Duration: Feb 10, 2019 Frequency: 5 times per week Estimated Hrs Per Day: .5 hour per day Agreement: Yes Rehab Potential: Good Time/GCodes Start Time: 13:25 Stop Time: 13:55 Total Time Billed (hr/min): 30 Billed Treatment Time 1, EVM x 30minutes PALOMA MEJIA OT Jan 27, 2019 15:08
[2019-01-27 16:40] VITALS: BP 124/73
[2019-01-27 20:55] VITALS: BP 95/53
[2019-01-27] MEDS ORDERED: lisINopril 20 MG (PRINIVIL) TABLET PO SCH (21:00)
[2019-01-27] MEDS: lisINopril 20 MG (PRINIVIL) TABLET PO SCH (21:13)
[2019-01-28 00:27] VITALS: BP 106/51
[2019-01-28 04:00] VITALS: BP 126/60
[2019-01-28] MEDS: NS IV 1000 ML 1,000 ML IV SCH (05:13)
[2019-01-28 05:38] VITALS: BP 126/60
[2019-01-28] MEDS: ENOXAPARIN 40 MG/0.4 ML (LOVENOX) SYR SC SCH (07:43)
[2019-01-28] MEDS: HYDROcodone/APAP 5 MG/325 MG (LORTAB) TAB PO PRN (07:43)
[2019-01-28 08:00] VITALS: BP 191/74
[2019-01-28] MEDS: FUROSEMIDE 20 MG (LASIX) TAB PO SCH (08:41)
[2019-01-28] MEDS: lisINopril 20 MG (PRINIVIL) TABLET PO SCH (08:42)
[2019-01-28] MEDS: DULOXETINE 60 MG CAPSULE PO SCH (08:43)
[2019-01-28] MEDS: DOCUSATE SODIUM 100 MG (COLACE) CAP PO SCH (08:47)
[2019-01-28] MEDS ORDERED: FUROSEMIDE 20 MG (LASIX) TAB PO SCH (09:00)
--- NOTE | 2019-01-28 09:44 | Progress Note ---
Subjective Time Seen by a Provider: 08:00 Objective Exam Last Set of Vital Signs Vital Signs Date Time Temp Pulse Resp B/P (MAP) Pulse Ox O2 Delivery O2 Flow Rate FiO2 01/28/19 08:00 98.6 71 20 191/74 (113) 96 Room Air 01/28/19 05:38 3.00 Capillary Refill : Less Than 3 SecondsLess Than 3 Seconds I&O Intake and Output 01/28/19 00:00 Intake Total 4840 ml Output Total 4150 ml Balance 690 ml Intake Oral 3790 ml IV Total 1050 ml Output Urine Total 4150 ml Assessment/Plan Assessment/Plan Assess & Plan/Chief Complaint SEE DISCHARGE NOTE Clinical Quality Measures Admission Status Admission Dx INTERTROCHANTERIC FRACTURE RIGHT HIP TOBACCOISM HYPERTENSION DEPRESSION ESOPHAGEAL REFLUX DVT/VTE Risk/Contraindication: Risk Factor Score Per Nursin RFS Level Per Nursing on Admit: 4+=Very High CHRISTEN FLORES MD Jan 28, 2019 09:44
--- NOTE | 2019-01-28 09:49 | Discharge Summary ---
Diagnosis/Chief Complaint Date of Admission Jan 26, 2019 at 16:30 Date of Discharge Reason Hospital Visit PT IS A 73 Y/O FEMALE WHO IS WELL KNOWN TO ME FROM CLINIC. SHE PRESENTED TO THE EMERGENCY DEPARTMENT YESTERDAY EVENING WITH RIGHT HIP PAIN. SHE WAS FOUND TO HAVE AN ACUTE RIGHT HIP FRACTURE AND WAS TAKEN TO SURGERY BY DR. DOBBS. TODAY SHE REPORTS THAT SHE IS FEELING..... Discharge Summary Discharge Physical Examination Allergies: Coded Allergies: amoxicillin (Verified Allergy, Intermediate, RASH AND LIP SWELLING, ) metronidazole (Verified Allergy, Intermediate, RASH AND BUMPS ON LEGS, ) Sulfa (Sulfonamide Antibiotics) (Unverified Allergy, Unknown, RASH, ) cephalexin (Unverified Allergy, Unknown, 12/21/10) clavulanic acid (Unverified Allergy, Unknown, 01/26/19) levofloxacin (Verified Allergy, Unknown, TENDON PAIN IN ANKLES, 01/27/19) Uncoded Allergies: STEROIDS (Allergy, Unknown, 12/21/10) Vitals & I&Os Vital Signs Date Time Temp Pulse Resp B/P (MAP) Pulse Ox O2 Delivery O2 Flow Rate FiO2 01/28/19 08:00 98.6 71 20 191/74 (113) 96 Room Air 01/28/19 05:38 3.00 Discharge Instructions to patient/family Please see electronic discharge instructions given to patient. Discharge Medications Reviewed and agree with Discharge Medication list on patient's Discharge Instruction sheet Clinical Quality Measures DVT/VTE Risk/Contraindication: Risk Factor Score Per Nursin RFS Level Per Nursing on Admit: 4+=Very High CHRISTEN FLORES MD Jan 28, 2019 09:49
[2019-01-28] MEDS ORDERED: ENOX40DI8 SC (09:54)
[2019-01-28 10:40] VITALS: BP 191/74
--- NOTE | 2019-01-28 10:45 | NUR ---
TRANSFERRED TO REHAB, REPORT GIVEN TO PERI LYNCH, VERBALIZED UNDERSTANDING OF TRANSFER, AT BESIDE. HEPARIN LOCK DC, DRESSING CHANGED TO RIGHT HIP, STERI STRIPES INTACT, NO REDNESS OR DRAINAGE, ICE PACK TO INCISION, ON ROOM AIR, O2 SAT 96 PERCENT, NO C/O PAIN AT THIS TIME
--- NOTE | 2019-01-28 11:21 | Physical Therapy Daily Note ---
PT Daily Note-Current Subjective Pt sitting in recliner upon arrival. Pt agrees to PT. Pain Numeric Pain Scale: 5-Moderate Pain Location: Right Location Body Site: Hip Pain Description: Ache Mental Status Patient Orientation: Person, Place, Time, Situation Transfers Therapy Code Descriptions/Definitions Functional Hext Measure: 0=Not Assessed/NA 4=Minimal Assistance 1=Total Assistance 5=Supervision or Setup 2=Maximal Assistance 6=Modified Hext 3=Moderate Assistance 7=Complete Hext Therapy Quality Codes: 6 Independent with activity with or without an assistive device 5 Patient requires set up or clean up by helper. Patient completes activity by themselves 4 Supervision or touching assist (CGA). Almyra provide cues , steadying assist 3 The helper provides less than half the effort to complete the activity 2 The helper provides more than half the effort to complete the activity 1 Dependent. The helper does all the effort to complete an activity 7 Patient refused to complete or attempt activity 9 The patient did not perform the activity before the current illness or injury 88 Not attempted due to Medical conditions or safety concerns Scootin Sit to/from Stand: 4 Sit to Stand (QC): 4 Weight Bearing Right Lower Extremity: Right Touch Toe Bearing Left Lower Extremity: Left Full Weight Bearing Gait Training Does the Patient Walk?: Yes Distance (FIM): 1=up to 49 ft Distance: 15' Walk 10 feet (QC): 4 Gait Level of Assist: 4 Gait Persons Needed: 1 Gait Assistive Device: FWW Pt needs VC to keep WB status of TTWB. Pt reports soreness in shoulders with ambulation due to WB status. Wheelchair Training Does the Pt Use a Wheelchair?: No Exercises Seated Therapy Exercises: Ankle pumps, Long arc quads, Hip flexion, Kicking activity Seated Reps: 15 Treatments Pt ambulates in hallway before returning to room to rest in recliner. Pt completes Seated Ex. Pt has all needs met at end of tx. Assessment Current Status: Good Progress Pt wanting to be able to put more WB through RLE. PT Short Term Goals Short Term Goals Time Frame: Feb 03, 2019 Transfers (B,C,W/C) (FIM): 4 Gait (FIM): 2 Gait Distance Comment: 50' Gait Level of Assist: 4 Gait Assistive Device: FWW PT Long-Term Goals Mfts Goals Rollin PT Plan Problem List Problem List: Activity Tolerance, Functional Strength, Safety, Balance, Gait, Transfer Treatment/Plan Treatment Plan: Continue Plan of Care Treatment Plan: Bed Mobility, Education, Functional Activity Martina, Functional Strength, Gait, Safety, Therapeutic Exercise, Transfers Treatment Duration: Feb 03, 2019 Frequency: 11 times per week Estimated Hrs Per Day: .25 hour per day (15-30') Patient and/or Family Agrees t: Yes Safety Risks/Education Patient Education: Gait Training, Transfer Techniques, Correct Positioning, Safety Issues Teaching Recipient: Patient Teaching Methods: Discussion Response to Teaching: Verbalize Understanding Time/GCodes Time In: 900 Time Out: 915 Total Billed Treatment Time: 15 Total Billed Treatment 1, EX (15m) G Codes Necessary: SCARLET Mayen KARDEX CLERK Jan 28, 2019 11:21
== END 2019-01-28 10:40 | DRG 482 ==
LOC: EDUNIT# 13:21 → ER 13:22 → 4TH 16:30
PROVIDERS: ADMIT Internal Medicine; ATTEND Internal Medicine
PROC: 0QS604Z Reposition Right Upper Femur with Internal Fixation Device, Open Approach (ICD-10-PCS; principal; 2019-01-26 17:27)
DX: S72.141A Displaced intertrochanteric fracture of right femur, initial encounter for closed fracture (principal); S72.011A Unspecified intracapsular fracture of right femur, initial encounter for closed fracture; F17.210 Nicotine dependence, cigarettes, uncomplicated; S09.90XA Unspecified injury of head, initial encounter; M54.2 Cervicalgia; I10 Essential (primary) hypertension; K59.09 Other constipation; R11.0 Nausea; M79.7 Fibromyalgia; F41.9 Anxiety disorder, unspecified; K21.9 Gastro-esophageal reflux disease without esophagitis; Z85.3 Personal history of malignant neoplasm of breast; W10.1XXA Fall (on)(from) sidewalk curb, initial encounter
CPT/HCPCS: 36415; 51702; 70450; 71045; 72125; 73502; 73700; 80053; 81000; 85014; 85018; 85025; 86850; 86900; 86901; 93005; 94664; 96361; 96374; 96375

== ENCOUNTER 2019-01-28 10:01 | Inpatient (IN) | payer MEDICARE, OTHER ==
[~2019-01-28] VITALS: Ht 172.7 cm; Wt 74.6 kg
[~2019-01-28 10:01] MED LIST changes: +ENOX40DI8 SC; +LISI-552 PO; +METO-387 PO; +NAPR-915 PO
--- NOTE | 2019-01-28 10:25 | PM&R H&P / Post Admit Assess ---
History of Present Illness HPI/Chief Complaint Chief Complaint: Right hip fracture HPI: This is a female pt of Dr. George who sustained a right hip fracture after a fall. At this current time pt is participating in therapy. We are in the midst of repeating x-ray to evaluate if toe touch could be lifted and weight bearing is tolerated in order to participate in all therapies as much as possible. She reports shes urinating well and has not had a BM since admission. Her BP is reviewed and it is very labile so need to watch that closely. Reviewed her home medications. Her pain is controlled. is at the bedside. 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 Her prior level of functioning was independent and her current level of functioning is 1 to 2 person assist. Barriers to returning home will include ability to ambulate and perform independent ADL's. Source: patient, family Exam Limitations: no limitations Date Seen 01/28/19 Time Seen by a Provider: 11:00 Attending Physician Stephanie Stein Holly A MD Referring Physician Date of Admission Home Medications & Allergies Home Medications Reviewed patient Home Medication Reconciliation performed by pharmacy medication reconciliations biochemistry technician and/or nursing. Patients Allergies have been reviewed. Allergies Allergies Coded Allergies amoxicillin (Verified Allergy, Intermediate, RASH AND LIP SWELLING, 01/27/19) metronidazole (Verified Allergy, Intermediate, RASH AND BUMPS ON LEGS, 01/27/19 ) Sulfa (Sulfonamide Antibiotics) (Unverified Allergy, Unknown, RASH, 09/19/12) cephalexin (Unverified Allergy, Unknown, 12/21/10) clavulanic acid (Unverified Allergy, Unknown, 01/26/19) levofloxacin (Verified Allergy, Unknown, TENDON PAIN IN ANKLES, 01/27/19) Uncoded Allergies STEROIDS ( Allergy, Unknown, 12/21/10) Past Uwfjuxn-Xbvyvx-Bmjvvc Hx Past Med/Social Hx: Reviewed Nursing Past Med/Soc Hx, Reviewed and Corrections made Patient Social History Marrital Status: Employed/Student: retired Alcohol Use: Denies Use Smoking Status: Current Everyday Smoker Type Used: Cigarettes 2nd Hand Smoke Exposure: Yes Recent Hopitalizations: No Immunizations Up To Date Date of Pneumonia Vaccine: Jun 18, 2018 Date of Influenza Vaccine: Jul 15, 2015 Seasonal Allergies Seasonal Allergies: No Past Medical History Surgeries: Breast, Orthopedic Cardiac: Hypertension Reproductive: No Menopausal Genitourinary: Bladder Infection Gastrointestinal: Chronic Constipation, Diverticulosis Musculoskeletal: Degenerate Disk Disease, Fibromyalgia, Chronic Back Pain Cancer: Breast Psychosocial: Anxiety History of Blood Disorders: No Family History FH: bladder cancer 19 FATHER Kidney disease 19 FATHER Myocardial infarction 19 FATHER 19 MOTHER G8 BROTHER Review of Systems Constitutional: see HPI EENTM: no symptoms reported Respiratory: no symptoms reported Cardiovascular: no symptoms reported Gastrointestinal: constipation Genitourinary: no symptoms reported Musculoskeletal: joint pain Skin: no symptoms reported Psychiatric/Neurological: No Symptoms Reported All Other Systems Reviewed Negative Unless Noted: Yes Physical Exam Exam Vital Signs Vital Signs Date Time Temp Pulse Resp B/P (MAP) Pulse Ox O2 Delivery O2 Flow Rate FiO2 01/28/19 18:00 98.6 73 18 146/78 (100) 95 Room Air Capillary Refill : General Appearance: No Apparent Distress, WD/WN, Chronically ill HEENT: PERRL/EOMI, Normal ENT Inspection, Pharynx Normal, Moist Mucous Membranes Neck: Full Range of Motion, Normal Inspection, Non Tender, Supple Respiratory: Chest Non Tender, Lungs Clear, Normal Breath Sounds, No Accessory Muscle Use, No Respiratory Distress Cardiovascular: Regular Rate, Rhythm, No Edema, No Gallop, No JVD, No Murmur Gastrointestinal: Normal Bowel Sounds, No Organomegaly, No Pulsatile Mass, Non Tender, Soft Back: Normal Inspection, No CVA Tenderness, No Vertebral Tenderness Extremity: Normal Capillary Refill, Normal Inspection, Normal Range of Motion ( except right leg), Non Tender, No Calf Tenderness, No Pedal Edema Neurologic/Psychiatric: Alert, Oriented x3, No Motor/Sensory Deficits ( decreased right leg ROM due to pain), Normal Mood/Affect Skin: Normal Color, Warm/Dry Lymphatic: No Adenopathy Results Results/Procedures Labs Patient resulted labs reviewed. Assessment/Plan Assessment and Plan Assess & Plan/Chief Complaint Assessment: s/p right hip fracture s/p repair Dr Rodríguez HTN Smoker h/o breast cancer h/o diverticulosis Post op constipation Plan: IRF Intensive therapies Toe touch x 6 weeks Home meds (1) Closed right hip fracture (2) Smoker (3) Hypertension (4) DVT prophylaxis (5) HX: breast cancer (6) Diverticulosis (7) Constipation Post Admission Physician Asses Date seen by provider: Jan 28, 2019 Time seen by provider: 11:00 The preadmission screen agrees with the post admission assessment that the patient is a good candidate for inpatient rehabilitation. The patient will have a comprehensive program of inpatient rehabilitation with a goal of maximizing level of functional independence prior to discharge home with . The patient will have PT/OT ninety minutes per day, each discipline, five days a week for gait, strengthening, conditioning, balance, ADLs, any patient/family/caregiver training as necessary. Speech therapy to do cognitive assessment and treat as indicated. Rehabilitation nursing to assist with bowel, bladder, skin, wound care, medication administration, pain management. Sharepoint Solutions Architect to assist with discharge planning, community reentry. SCD's for DVT prophylaxis. She appears to be well motivated to participate in three hours of therapy a day. She should be able to tolerate three hours of therapy a day from a medical standpoint. She should benefit from the three hours of therapy a day. She has a reasonable discharge plan, reasonable discharge rehabilitation goals and a supportive family. She has various comorbidities that need to be closely monitored with medications and treatments adjusted on a daily basis as needed. These include: see list above Barriers to discharge for this patient who had been independent prior to this are for her to be modified independent to supervision for ADLs and mobility skills prior to discharge home with , so as to lessen the burden of the caregivers. Risks for this patient include: 1. Fall 2. Fracture 3. DVT 4. Pulmonary embolism 5. Wound infection 6. Skin breakdown 7. Contractures 8. Poorly controlled pain 9. Urinary retention 10. UTI 11. Respiratory infection 12. Aspiration Estimated Length of Stay: 7 days Prognosis: Rehab prognosis appears good for goal of discharge home with modified independent to supervision for ADLs and mobility skills. STEPHANIE STEIN DO Jan 28, 2019 10:25
[2019-01-28 11:00] VITALS: BP 133/81
--- NOTE | 2019-01-28 11:00 | NUR ---
CAMDEN CARLIN admitted to room 225-1, with an admitting diagnosis of CLOSED RIGHT HIP FRACTURE, on 01/28/19 from [facility] [address] via W/C, accompanied by AND STAFF.CAMDEN CARLIN introduced to surroundings, call light, bed controls, phone, TV, temperature control, lights, meal times, smoking policy, visitor policy, side rail policy, bathrooms and showers. Patient Rights given to patient in the handbook.CAMDEN CARLIN verbalizes understanding that [facility] is not responsible for the loss or damage to any personal effects or valuables that are kept in the patients posession during their hospitalization. The following Patient Care Plans were discussed with the PT: Discharge Planning AND IMPAIRED MOBILITY. CAMDEN CARLIN verbalizes understanding of Interdisciplinary Patient Education.PATIENT received Patient Rights Booklet, which includes Privacy Act Statement and Data Collection Information Summary. PLEASANT AND COOPERATIVE. ICE PACK TO RIGHT HIP. VSS.
--- OUTSIDE RECORDS SUMMARY | 2019-01-28 11:18 | XMS REPORT | Clinical Summary ---
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 For more information, please contact: [facility] [address] [address]
--- NOTE | 2019-01-28 11:48 | Physical Therapy Evaluation ---
PT Evaluation-General Medical Diagnosis Admission Date Jan 28, 2019 at 11:00 Medical Diagnosis: right hip fx Onset Date: Jan 25, 2019 Therapy Diagnosis Therapy Diagnosis: weakness Height/Weight Height (Feet): 5 Height (Inches): 8.00 Weight (Pounds): 164 Weight (Ounces): 6.0 Precautions Precautions/Isolations: Standard Precautions Weight Bear Status Right Lower Extremity: Right Touch Toe Bearing Left Lower Extremity: Left Weight Bearing/Tolerated Referral Physician: Sarita Reason for Referral: Evaluation/Treatment Medical History Pertinent Medical History: HTN, Smoking Additional Medical History DDD, fibromyalgia and anxiety Current History Pt reports she was in [place], [place], she and her were going to [place]. She reports she was walking out of a building and missed the step of a curb and fell. EMS assisted her into her car and she and her drove to [employer]. She underwent a hip surgery to repair a fractured hip with a screw and a plate on the right. Reviewed History: Yes Social History Home: Single Level Current Living Status: Spouse Entry Into Home: Stairs With Railing (2) Prior/Core FIM Prior Level of Function Therapy Code Descriptions/Definitions Functional [place] Measure: 0=Not Assessed/NA 4=Minimal Assistance 1=Total Assistance 5=Supervision or Setup 2=Maximal Assistance 6=Modified [place] 3=Moderate Assistance 7=Complete [place] Therapy Quality Codes: 6 Independent with activity with or without an assistive device 5 Patient requires set up or clean up by helper. Patient completes activity by themselves 4 Supervision or touching assist (CGA). Jackson provide cues , steadying assist 3 The helper provides less than half the effort to complete the activity 2 The helper provides more than half the effort to complete the activity 1 Dependent. The helper does all the effort to complete an activity 7 Patient refused to complete or attempt activity 9 The patient did not perform the activity before the current illness or injury 88 Not attempted due to Medical conditions or safety concerns Functional Abilities and Goals: Independent: Patient completed the activities by him/herself, with or without an assistive device, with no assistance from a helper. Needed Some Help: Patient needed partial assistance from another person to complete activities. Dependent: A helper completed the activities for the patient. Unknown: Not Applicable: Bed Mobility: 7 Transfers (B,C,W/C) (FIM): 7 Gait: 7 Stairs: 7 Indoor Mobility (Ambulation): Independent Stairs: Independent still drives and community ambulator; active. PT Evaluation-Current Subjective Pt is agreeable to PT. Rerprots she feels tired. Pain Numeric Pain Scale: 7 Location: Right Location Body Site: Hip Pain Description: Ache Comment: 7/10 with activity and 2/10 at rest Objective Patient Orientation: Person, Place, Time, Situation Problem Solving: Good ROM/Strength ROM Lower Extremities WFL Strenght Lower Extremities left LE is WNL; right LE is grossly 3/5 Integumentary/Posture Integumentary intact Bowel Incontinence: No Bladder Incontinence: No Posture normal and symmetrical Neuromuscular (Tone, Coordination, Reflexes) intact and functional Sensory Vision: Functional Hearing: Functional Hand Dominance: Right Sensation Right Lower Extremit: Intact Sensation Left Lower Extremity: Intact Transfers Therapy Code Descriptions/Definitions Functional [place] Measure: 0=Not Assessed/NA 4=Minimal Assistance 1=Total Assistance 5=Supervision or Setup 2=Maximal Assistance 6=Modified [place] 3=Moderate Assistance 7=Complete [place] Therapy Quality Codes: 6 Independent with activity with or without an assistive device 5 Patient requires set up or clean up by helper. Patient completes activity by themselves 4 Supervision or touching assist (CGA). Jackson provide cues , steadying assist 3 The helper provides less than half the effort to complete the activity 2 The helper provides more than half the effort to complete the activity 1 Dependent. The helper does all the effort to complete an activity 7 Patient refused to complete or attempt activity 9 The patient did not perform the activity before the current illness or injury 88 Not attempted due to Medical conditions or safety concerns Transfers (B, C, W/C) (FIM): 3 Scootin Rollin Roll Left to Right (QC): 4 Supine to/from Sit: 3 (assist with both legs) Sit to/from Stand: 4 (min assist and cues for sequencing. ) Sit to Lying (QC): 3 Lying to Sitting/Side of Bed(Q: 3 Sit to Stand (QC): 4 Chair/Eaa-ct-Tnhih Xfer(QC): 4 Car Transfer (QC): 3 Pt requires assist with both legs primarily and is also limited by pain. Gait Does the Patient Walk?: Yes Mode of Locomotion: Walk Anticipated Mode of Locomotion: Walk Gait (FIM): 2 Distance (FIM): 1=up to 49 ft Walk 10 feet (QC): 4 Walk 50 ft with 2 Turns(QC): 88 (unable to walk this distance) Walk 150 ft (QC): 88 Walking 10ft/uneven surface-QC: 88 Distance: 15 ft Gait Level of Assist: 4 (CGA with skilled cues for TTWB status) Gait Persons Needed: 1 Gait Assistive Device: FWW Comments/Gait Description pt seems to be maintaining TTWB Wheelchair Training Does the Pt Use a Wheelchair?: No Stairs Stairs (FIM): 0 (will assess this afternoon) Balance Sitting Static: Good Sitting Dynamic: Good Standing Static: Fair Standing Dynamic: Fair Picking up an Object (QC): 88 (unsafe to attempt) Treatment Pt performed a toilet transfer with min assist (4) and was able to perform pericare with supervision; multiple sit to stand transfers performed during treatment with cues for sequencing; gait training 4 bouts of 15 ft each with FWW with CGA and cues for TTWB status. Education provided on ARU and expectations. Assessment/Needs Pt presents post fall that resulted in a right hip fracture. It was repaired by DR Rodríguez with a screw and plate. She is TTWB. She presents with decreased ability to transfer and walk as well as with impaired functional strength and balance. She will benefit from skilled PT to addres strengh and mobility to return home. Pt is highly motivated to return home and reports she hopes to go home on Sunday. Rehab Potential: Good PT Short Term Goals Short Term Goals Time Frame: Feb 04, 2019 Transfers (B,C,W/C) (FIM): 5 Gait (FIM): 4 PT Shelter Goals Organ Teacher Goals PT Shelter Goals Time Frame: Feb 11, 2019 Transfers (B,C,W/C) (FIM): 7 Sit to Lying (QC): 6 Lying-Sitting on Side/Bed(QC): 6 Sit to Stand (QC): 6 Roll Left to Right (QC): 6 Chair/Lkw-kw-Blcuv Xfer(QC): 6 Car Transfer (QC): 6 Does the Patient Walk: Yes Gait distance (FIM): 3=150 ft Distance: 200 Walk 10 feet (QC): 6 Walk 10ft-Uneven Surface(QC): 6 Walk 50ft with 2 Turns (QC): 6 Walk 150 ft (QC): 6 Gait Assistive Device: FWW Does the Pt use WC or Scooter?: No Stairs (FIM): 5 (household) # of Steps: 4 1 Step (curb) (QC): 6 4 Steps (QC): 6 12 Steps (QC): 88 Picking up an Object (QC): 88 PT Plan Problem List Problem List: Activity Tolerance, Functional Strength, Safety, Balance, Gait, Transfer, Bed Mobility Treatment/Plan Treatment Plan: Continue Plan of Care Treatment Plan: Bed Mobility, Education, Functional Activity Martina, Functional Strength, Group Therapy, Gait, Safety, Therapeutic Exercise, Transfers Treatment Duration: Feb 11, 2019 Frequency: At least 5 of 7 days/Wk (IRF) Estimated Hrs Per Day: 1.5 hours per day Patient and/or Family Agrees t: Yes Safety Risks/Education Patient Education: Gait Training, Reviewed Precautions, Safety Issues Teaching Recipient: Patient Teaching Methods: Demonstration, Discussion Response to Teaching: Reinforcement Needed Discharge Recommendations Therapy D/C Recommendations: Physical Therapy Home Care Time/GCodes Time In: 1040 Time Out: 1130 Total Billed Treatment Time: 50 Total Billed Treatment visit EVM 15 FA 35 STEPAN JEFFERSON PT Jan 28, 2019 11:48
--- OUTSIDE RECORDS SUMMARY | 2019-01-28 12:07 | XMS REPORT | Continuity of Care Document ---
Author Organization Unknown Address Unknown Allergies Active Description Code Type Severity Reaction Onset Reported/Identified Relationship to Patient Clinical Status Yes cephalexin [id number] Drug Allergy Unknown N/A 12/21/2010 Yes STEROIDS STEROIDS Unknown N/A 12/21/2010 Yes Sulfa (Sulfonamide Antibiotics) [id number] Drug Allergy Unknown RASH 2011 Yes amoxicillin [id number] Drug Allergy Unknown N/A 01/26/2019 Yes clavulanic acid [id number] Drug Allergy Unknown N/A 01/26/2019 Yes levofloxacin [id number] Drug Allergy Unknown N/A 01/26/2019 Yes metronidazole [id number] Drug Allergy Unknown N/A 01/26/2019 Yes amoxicillin [id number] Drug Allergy Moderate RASH AND LIP SW 01/27/2019 Yes metronidazole [id number] Drug Allergy Moderate RASH AND BUMPS 01/27/2019 Yes levofloxacin [id number] Drug Allergy Unknown TENDON PAIN IN 01/27/2019 Medications There is no data. Problems Date [...] SANDRA PERDUE, CHRISTEN Jamison Ot 719.45 10/22/2014 KEESHA PERDUE, CARLOTTA Jerome Ot 305.1 10/22/2014 KEESHA PERDUE, CARLOTTA Queenie Ot 733.00 10/22/2014 KEESHA PERDUE, CARLOTTA K Ot V10.3 10/22/2014 KEESHA PERDUE, CARLOTTA K Ot V12.72 10/22/2014 KEESHA PERDUE, CARLOTTA Queenie Ot V58.69 10/22/2014 KEESHA PERDUE, CARLOTTA Queenie Ot V67.1 11/09/2014 KEESHA PERDUE, CARLOTTA Jerome Ot 305.1 11/09/2014 KEESHA PERDUE, CARLOTTA Queenie Ot 733.00 11/09/2014 KEESHA PERDUE, CARLOTTA Queenie Ot V10.3 11/09/2014 KEESHA PERDUE, CARLOTTA K Ot V12.72 11/09/2014 KEESHA PERDUE, CARLOTTA K Ot V58.69 11/09/2014 KEESHA PERDUE, CARLOTTA Queenie Ot V67.1 12/02/2014 KEESHA PERDUE, CARLOTTA Queenie Ot 174.9 12/02/2014 KEESHA PERDUE, CARLOTTA Jerome Ot 305.1 12/02/2014 KEESHA PERDUE, CARLOTTA Queenie Ot 733.00 12/02/2014 KEESHA PERDUE, CARLOTTA Jerome Ot V10.3 12/02/2014 KEESHA PERDUE, CARLOTTA K Ot V12.72 12/02/2014 KEESHA PERDUE, CARLOTTA K Ot V58.69 12/02/2014 KEESHA PERDUE, CARLOTTA K Ot V67.1 12/02/2014 SANDRA PERDUE, CHRISTEN A Ot 719.45 12/02/2014 KEESHA PERDUE, CARLOTTA Jerome Ot 305.1 12/02/2014 KEESHA PERDUE, CARLOTTA Jerome Ot 733.00 12/02/2014 KEESHA PERDUE, CARLOTTA Queenie Ot V10.3 12/02/2014 KEESHA PERDUE, CARLOTTA Queenie Ot V12.72 12/02/2014 KEESHA PERUDE, CARLOTTA Queenie Ot V58.69 12/02/2014 KEESHA EPRDUE, CARLOTTA K Ot V67.1 12/03/2014 KEESHA PERDUE, CARLOTTA Queenie Ot 174.9 12/03/2014 KEESHA PERDUE, CARLOTTA Jerome Ot 305.1 12/03/2014 KEESHA PERDUE, CARLOTTA Jerome Ot 733.00 12/03/2014 KEESHA PERDUE, CARLOTTA Jerome Ot V10.3 12/03/2014 KEESHA PERDUE, CARLOTTA Jerome Ot V12.72 12/03/2014 KEESHA PERDUE, CARLOTTA Jerome Ot V58.69 12/03/2014 KEESHA PERDUE, CARLOTTA Jerome Ot V67.1 12/03/2014 SANDRA PERDUE, CHRISTEN A Ot 719.45 12/03/2014 KEESHA PERDUE, CARLOTTA Jerome Ot 305.1 12/03/2014 KEESHA PERDUE, CARLOTTA Jerome Ot 733.00 12/03/2014 KEESHA PERDUE, CARLOTTA Jerome Ot V10.3 12/03/2014 KEESHA PERDUE, CARLOTTA Jerome Ot V12.72 12/03/2014 KEESHA PERDUE, CARLOTTA Jerome Ot V58.69 12/03/2014 KEESHA PERDUE, CARLOTTA Jerome Ot V67.1 12/03/2014 SANDRA PERDUE, CHRISTEN Jamison Ot 305.1 12/03/2014 SANDRA PERDUE, CHRISTEN A Ot 401.9 12/03/2014 SANDRA PERDUE, CHRISTEN A Ot 492.8 12/03/2014 SANDRA PERDUE, CHRISTEN A Ot V81.5 01/08/2015 SANDRA PERDUE, CHRISTEN Jamison Ot 305.1 01/08/2015 SANDRA PEDRUE, CHRISTEN A Ot 401.9 01/08/2015 SANDRA PERDUE, [...] Jerome Ot 305.1 02/10/2015 KEESHA PERDUE, CARLOTTA Queenie [...] KEESHA PERDUE, CARLOTTA Jerome Ot V67.1 02/10/2015 SANDRA PERDUE, CHRISTEN Jamison Ot 719.45 02/10/2015 KEESHA PERDUE, CARLOTTA Queenie Ot 305.1 02/10/2015 KEESHA PERDUE, CARLOTTA Queenie Ot 733.00 02/10/2015 KEESHA PERDUE, CARLOTTA Jerome Ot V10.3 02/10/2015 KEESHA PERDUE, CARLOTTA Jerome Ot V12.72 02/10/2015 KEESHA PERDUE, CARLOTTA Queenie Ot V58.69 02/10/2015 KEESHA PERDUE, CARLOTTA Queenie Ot V67.1 02/10/2015 SANDRA PERDUE, CHRISTEN Jamison Ot 305.1 02/10/2015 SANDRA PERDUE, CHRISTEN Jamison Ot 401.9 02/10/2015 SANDRA PERDUE, CHRISTEN Jamison Ot 492.8 02/10/2015 SANDRA PERDUE, CHRISTEN Jamison Ot V81.5 02/10/2015 KEESHA PERDUE, CARLOTTA Jerome [...] 04/05/2015 KEESHA PERDUE, CARLOTTA Jerome Ot V58.69 OT MED,LT,CURRENT USE 04/05/2015 KEESHA PERDUE, CARLOTTA Jerome Ot V67.1 RADIOTHERAPY FOLLOW-UP 05/24/2015 KEESHA PERDUE, CARLOTTA Jerome Ot V10.3 05/24/2015 KEESHA PERDUE, CARLOTTA Jerome Ot V58.69 05/24/2015 KEESHA PERDUE, CARLOTTA Jerome Ot V67.1 05/25/2015 KEESHA PERDUE, CARLOTTA Jerome Ot V10.3 05/25/2015 KEESHA PERDUE, CARLOTTA Jerome Ot V58.69 05/25/2015 KEESHA PERDUE, CARLOTTA Jerome Ot V67.1 06/02/2015 KEESHA PERDUE, CARLOTTA Jerome Ot V10.3 06/02/2015 KEESHA PERDUE, CARLOTTA Jerome Ot V58.69 06/02/2015 KEESHA PERDUE, CARLOTTA Jerome Ot V67.1 06/08/2015 KEESHA PERDUE, CARLOTTA Jerome Ot 174.9 06/08/2015 KEESHA PERDUE, CARLOTTA Jerome [...] Jerome Ot 174.9 06/23/2015 KEESHA PERDUE, CARLOTTA Jerome Ot 793.19 07/05/2015 KEESHA PERDUE, CARLOTTA Jerome Ot 174.9 07/05/2015 KEESHA PERDUE, CARLOTTA Jerome Ot 793.19 07/14/2015 KEESHA PERDUE, CARLOTTA Jerome Ot V10.3 HX OF BREAST MALIGNANCY 07/14/2015 KEESHA PERDUE, CARLOTTA Jerome Ot V58.69 OTH MED,LT,CURRENT USE 07/14/2015 KEESHA PERDUE, CARLOTTA Jerome Ot V67.1 RADIOTHERAPY FOLLOW-UP 07/14/2015 KEESHA PERDUE, CARLOTTA Queenie Ot V10.3 07/14/2015 KEESHA PERDUE, CARLOTTA Queenie Ot V58.69 07/14/2015 KEESHA PERDUE, CARLOTTA Jerome [...] 10/27/2015 Ot 599.0 10/27/2015 KEESHA PERDUE, CARLOTTA Jerome Ot 216.5 10/27/2015 KEESHA PERDUE, CARLOTTA Queenie Ot 305.1 10/27/2015 KEESHA PERDUE, CARLOTTA Queenie Ot 733.00 10/27/2015 KEESHA PERDUE, CARLOTTA Queenie Ot V10.3 10/27/2015 KEESHA PERDUE, CARLOTTA Queenie Ot V12.72 10/27/2015 KEESHA PERDUE, CARLOTTA Queenie Ot V45.77 10/27/2015 KEESHA PERDUE, CARLOTTA Queenie Ot V58.69 10/27/2015 KEESHA PERDUE, CARLOTTA Queenie Ot V67.1 10/27/2015 KEESHA PERDUE, CARLOTTA Queenie Ot 305.1 10/27/2015 KEESHA PERDUE, CARLOTTA Queenie Ot 733.00 10/27/2015 KEESHA PERDUE, CARLOTTA Jerome Ot V10.3 10/27/2015 KEESHA PERDUE, CARLOTTA Jerome Ot V12.72 10/27/2015 KEESHA PERDUE, CARLOTTA Jerome Ot V58.69 10/27/2015 KEESHA PERDUE, CARLOTTA K Ot V67.1 10/27/2015 KEESHA PERDUE, CARLOTTA K Ot 174.9 10/27/2015 KEESHA PERDUE, CARLOTTA K Ot 305.1 10/27/2015 KEESHA PERDUE, CARLOTTA K Ot 733.00 10/27/2015 KEESHA PERDUE, CARLOTTA K Ot V10.3 10/27/2015 KEESHA PERDUE, CARLOTTA K Ot V12.72 10/27/2015 KEESHA PERDUE, CARLOTTA K Ot V58.69 10/27/2015 KEESHA PERDUE, CARLOTTA K Ot V67.1 10/27/2015 SANDRA PERDUE, CHRISTEN A Ot 719.45 10/27/2015 KEESHA PERDUE, CARLOTTA K Ot 305.1 10/27/2015 KEESHA PERDUE, CARLOTTA K Ot 733.00 10/27/2015 KEESHA PERDUE, CARLOTTA K Ot V10.3 10/27/2015 KEESHA PERDUE, CARLOTTA K Ot V12.72 10/27/2015 KEESHA PERDUE, CARLOTTA K Ot V58.69 10/27/2015 KEESHA PERDUE, CARLOTTA K Ot V67.1 10/27/2015 KEESHA PERDUE, CARLOTTA K Ot 174.9 10/27/2015 KEESHA PERDUE, CARLOTTA Queenie Ot V76.11 10/27/2015 SANDRA PERDUE, CHRISTEN A [...] W CHRONIC CHOLEC 10/28/2015 SAUD PERDUE, ROXANE Ot Z79.899 OTHER ONLINE MARKETING COORDINATOR (CURRENT) DRUG THERAPY 11/10/2015 KEESHA PERDUE, CARLOTTA Jerome Ot Z08 11/10/2015 KEESHA PERDUE, CARLOTTA Jerome Ot Z85.3 11/24/2015 KEESHA PERDUE, CARLOTTA Jerome Ot Z08 11/24/2015 KEESHA PERDUE, CARLOTTA Jerome Ot Z85.3 12/01/2015 KEESHA PERDUE, CARLOTTA Jerome Ot 174.9 12/01/2015 KEESHA PERDUE, CARLOTTA Jerome Ot V76.11 12/01/2015 KEESHA PERDUE, CARLOTTA Jerome Ot 174.9 12/01/2015 KEESHA PERDUE, CARLOTTA Jerome Ot 793.19 12/01/2015 KEESHA PERDUE, CARLOTTA Jerome Ot Z08 12/01/2015 KEESHA PERDUE, CARLOTTA Jerome [...] HISTORY OF COLONIC POLYPS 05/17/2016 ROXANE VILLAVICENCIO MD Ot K57.90 DVRTCLOS OF INTEST, PART UNSP, W/O PERF 05/17/2016 ROXNAE VILLAVICENCIO MD Ot K62.1 RECTAL POLYP 05/17/2016 [...] Ot K62.1 RECTAL POLYP 05/19/2016 ROXANE VILLAVICENCIO MD Ot K64.1 SECOND DEGREE HEMORRHOIDS 05/19/2016 ROXANE VILLAVICENCIO MD Ot Z09 ENCNTR FOR F/U EXAM AFT TRTMT FOR COND O 05/19/2016 ROXANE VILLAVICENCIO MD Ot Z85.3 PERSONAL HISTORY OF MALIGNANT NEOPLASM O 05/19/2016 ROXANE VILLAVICENCIO MD Ot Z86.010 PERSONAL HISTORY OF COLONIC POLYPS 05/23/2016 ROXANE VILLAVICENCIO MD Ot K57.90 DVRTCLOS OF INTEST, PART UNSP, W/O PERF 05/23/2016 ROXANE VILLAVICENCIO MD Ot K62.1 RECTAL POLYP 05/23/2016 ROXANE VILLAVICENCIO MD Ot K64.1 SECOND DEGREE HEMORRHOIDS 05/23/2016 ROXANE VILLAVICENCIO MD Ot Z09 ENCNTR FOR F/U EXAM AFT TRTMT FOR COND O 05/23/2016 ROXANE VILLAVICENCIO MD Ot Z85.3 PERSONAL HISTORY OF MALIGNANT NEOPLASM O 05/23/2016 ROXANE VILLAVICENCIO MD Ot Z86.010 PERSONAL HISTORY OF COLONIC POLYPS 05/26/2016 KEESHA PEDRUE, CARLOTTA Jerome Ot Z08 ENCNTR FOR FOLLOW-UP [...] MALIGNANT NEOPLASM O 07/30/2016 KEESHA PERDUE, CARLOTTA Jerome Ot Z08 ENCNTR FOR FOLLOW-UP EXAM AFTER TRTMT FO 07/30/2016 CARLOTTA THAO MD Ot Z85.3 PERSONAL HISTORY OF MALIGNANT NEOPLASM O 08/05/2016 KEESHA PERDUE, CARLOTTA Jerome Ot Z08 ENCNTR [...] OF MALIGNANT NEOPLASM O 02/06/2017 VALDEZ DANIEL CHILD AND FAMILY COUNSELOR Ot R10.31 RIGHT LOWER QUADRANT PAIN 02/06/2017 VALDEZ DANIEL CHILD AND FAMILY COUNSELOR Ot R10.32 LEFT LOWER QUADRANT PAIN 02/15/2017 [...] OF MALIGNANT NEOPLASM O 02/15/2017 VALDEZ DANIEL CHILD AND FAMILY COUNSELOR Ot R10.31 RIGHT LOWER QUADRANT PAIN 02/15/2017 VALDEZ DANIEL CHILD AND FAMILY COUNSELOR Ot R10.32 LEFT LOWER QUADRANT PAIN 02/18/2017 CARLOTTA THAO MD Ot Z08 ENCNTR FOR FOLLOW-UP EXAM AFTER TRTMT FO 02/18/2017 CARLOTTA THAO MD Ot Z85.3 PERSONAL HISTORY OF MALIGNANT NEOPLASM O 02/19/2017 CARLOTTA THAO MD Ot Z08 ENCNTR FOR FOLLOW-UP EXAM AFTER TRTMT FO 02/19/2017 CARLOTTA THAO MD Ot Z85.3 PERSONAL HISTORY OF MALIGNANT NEOPLASM O 02/27/2017 VALDEZ DANIEL CHILD AND FAMILY COUNSELOR Ot R10.31 RIGHT LOWER QUADRANT PAIN 02/27/2017 VALDEZ DANIEL CHILD AND FAMILY COUNSELOR Ot R10.32 LEFT LOWER QUADRANT PAIN 03/05/2017 WILBUR MALONE, MISSAEL Desai Ot M66.872 SPONTANEOUS RUPTURE OF OTHER TENDONS, LE 03/09/2017 CARLOTTA THAO MD Ot Z12.31 ENCNTR SCREEN MAMMOGRAM FOR MALIGNANT NE 03/20/2017 VALDEZ DANIEL CHILD AND FAMILY COUNSELOR Ot R10.31 RIGHT LOWER QUADRANT PAIN 03/20/2017 VALDEZ DANIEL CHILD AND FAMILY COUNSELOR Ot R10.32 LEFT LOWER QUADRANT PAIN 05/24/2017 ASHLEE PRAKASH MD Ot Z08 ENCNTR FOR FOLLOW-UP EXAM AFTER TRTMT FO 05/24/2017 ASHLEE PRAKASH MD Ot Z85.3 PERSONAL HISTORY OF MALIGNANT NEOPLASM O 05/28/2017 ASHLEE PRAKASH MD Ot Z12.31 ENCNTR SCREEN MAMMOGRAM FOR MALIGNANT NE 05/28/2017 ASHLEE PRAKASH MD Ot Z12.31 ENCNTR SCREEN MAMMOGRAM FOR MALIGNANT NE 05/29/2017 ASHLEE PRAKASH MD, Ot C50.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 [...] EXAM AFTER TRTMT FO 05/29/2017 ASHLEE PRAKASH MD, Ot Z85.3 PERSONAL HISTORY OF MALIGNANT NEOPLASM O 05/29/2017 ASHLEE PRAKASH MD Ot Z86.010 PERSONAL HISTORY OF COLONIC POLYPS 06/20/2017 ASHLEE PRAKASH MD Ot F17.210 NICOTINE DEPENDENCE, CIGARETTES, UNCOMPL 06/20/2017 ASHLEE PRAKAHS MD Ot M81.0 AGE-RELATED OSTEOPOROSIS W/O CURRENT PAT 06/20/2017 ASHLEE PRAKASH MD Ot R91.8 OTHER NONSPECIFIC ABNORMAL FINDING OF ZOHRA 06/20/2017 ASHLEE PRAKASH MD, Ot Z08 ENCNTR FOR FOLLOW-UP EXAM AFTER TRTMT FO 06/20/2017 ASHLEE PRAKASH MD Ot Z85.3 PERSONAL HISTORY [...] Z86.010 PERSONAL HISTORY OF COLONIC POLYPS 07/20/2017 SANDRA PERDUE, CHRISTEN Jamison Ot K57.30 DVRTCLOS OF LG INT W/O PERFORATION OR AB 08/10/2017 CHRISTEN FLORES MD Ot K57.30 DVRTCLOS OF LG INT W/O PERFORATION OR AB 09/04/2017 CHRISTEN FLORES MD Ot K57.30 DVRTCLOS OF LG INT W/O PERFORATION OR AB 04/16/2018 ASHLEE PRAKASH MD, Ot Z12.31 ENCNTR SCREEN MAMMOGRAM FOR MALIGNANT NE 04/18/2018 ASHLEE PRAKASH MD, Ot Z12.31 ENCNTR SCREEN MAMMOGRAM FOR MALIGNANT NE 04/22/2018 ASHLEE PRAKASH MD, Ot C50.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 04/22/2018 ASHLEE PRAKASH MD, Ot F17.210 NICOTINE DEPENDENCE, CIGARETTES, UNCOMPL 04/22/2018 ASHLEE PRAKASH MD, Ot M81.0 AGE-RELATED OSTEOPOROSIS W/O CURRENT PAT 04/22/2018 ASHLEE PRAKASH MD, Ot R91.8 OTHER NONSPECIFIC ABNORMAL FINDING OF ZOHRA 04/22/2018 ASHLEE PRAKASH MD, Ot Z08 ENCNTR FOR FOLLOW-UP EXAM AFTER TRTMT FO 04/22/2018 ASHLEE PRAKASH MD, Ot Z85.3 PERSONAL HISTORY OF MALIGNANT NEOPLASM O 04/22/2018 ASHLEE PRAKASH MD Ot Z86.010 PERSONAL HISTORY OF COLONIC POLYPS 04/23/2018 ASHLEE PRAKASH MD, Ot J43.9 EMPHYSEMA, UNSPECIFIED 04/23/2018 ASHLEE PRAKASH MD Ot K22.8 OTHER SPECIFIED DISEASES OF ESOPHAGUS 04/23/2018 ASHLEE PRAKASH MD Ot 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 04/23/2018 ASHLEE PRAKASH MD Ot R91.8 OTHER NONSPECIFIC ABNORMAL FINDING OF ZOHRA 04/23/2018 ASHLEE PRAKASH MD, Ot Z12.31 ENCNTR SCREEN MAMMOGRAM FOR MALIGNANT NE 04/23/2018 ASHLEE PRAKASH MD Ot Z90.49 ACQUIRED ABSENCE OF OTHER SPECIFIED PART 05/06/2018 ASHLEE PRAKASH MD, Ot C50.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 05/06/2018 ASHLEE PRAKASH MD Ot Z08 ENCNTR FOR FOLLOW-UP EXAM AFTER TRTMT FO 05/06/2018 XUN MD, ANN-SOLOMON Ot Z85.3 PERSONAL HISTORY OF MALIGNANT NEOPLASM O 05/06/2018 ASHLEE PRAKASH MD, Ot Z92.3 PERSONAL HISTORY OF IRRADIATION 05/06/2018 CARLOTTA THAO MD Ot 174.9 MALIGN NEOPL BREAST NOS 05/06/2018 CARLOTTA THAO MD Ot V76.11 SCRN MAMMO-HIGH RISK PT, MALIGNANT NEOPL 05/06/2018 CARLOTTA THAO MD Ot 174.9 MALIGN NEOPL BREAST NOS 05/06/2018 KEESHA PERDUE, CARLOTTA Jerome Ot 793.19 OTHER NONSPECIFIC ABNORMAL FINDING OF [...] LEFT LOWER QUADRANT PAIN 05/06/2018 ASHLEE PRAKASH MD Ot C50.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 05/06/2018 ASHLEE PRAKASH MD Ot F17.210 NICOTINE DEPENDENCE, CIGARETTES, UNCOMPL 05/06/2018 ASHLEE PRAKASH MD Ot M81.0 AGE-RELATED OSTEOPOROSIS W/O CURRENT PAT 05/06/2018 ASHLEE PRAKASH MD Ot R91.8 OTHER NONSPECIFIC ABNORMAL FINDING OF ZOHRA 05/06/2018 ASHLEE PRAKASH MD Ot Z08 ENCNTR FOR FOLLOW-UP EXAM AFTER TRTMT FO 05/06/2018 ASHLEE PRAKASH MD Ot Z85.3 PERSONAL HISTORY OF MALIGNANT NEOPLASM O 05/06/2018 ASHLEE PRAKASH MD Ot Z86.010 PERSONAL HISTORY OF COLONIC POLYPS 05/06/2018 SANDRA PERDUE, CHRISTEN Jamison Ot K57.30 DVRTCLOS OF LG INT W/O PERFORATION OR AB 05/06/2018 ASHLEE PRAKASH MD, Ot J43.9 EMPHYSEMA, UNSPECIFIED 05/06/2018 ASHLEE PRAKASH MD Ot K22.8 OTHER SPECIFIED DISEASES OF ESOPHAGUS 05/06/2018 ASHLEE PRAKASH MD, Ot 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 05/06/2018 ASHLEE PRAKASH MD Ot R91.8 OTHER NONSPECIFIC ABNORMAL FINDING OF ZOHRA 05/06/2018 ASHLEE PRAKASH MD Ot Z12.31 ENCNTR SCREEN [...] PERSONAL HISTORY OF IRRADIATION 05/13/2018 ASHLEE PRAKASH MD Ot F17.210 NICOTINE DEPENDENCE, CIGARETTES, UNCOMPL 05/13/2018 ASHLEE PRAKASH MD Ot M81.0 AGE-RELATED OSTEOPOROSIS W/O CURRENT PAT 05/13/2018 ASHLEE PRAKASH MD Ot R91.8 OTHER NONSPECIFIC ABNORMAL FINDING OF ZOHRA 05/13/2018 ASHLEE PRAKASH MD, Ot Z08 ENCNTR FOR FOLLOW-UP EXAM AFTER TRTMT FO 05/13/2018 ASHLEE PRAKASH MD, Ot Z85.3 PERSONAL HISTORY OF MALIGNANT NEOPLASM O 05/13/2018 ASHLEE PRAKASH MD Ot Z86.010 PERSONAL HISTORY OF COLONIC POLYPS 05/14/2018 ASHLEE PRAKASH MD Ot Z08 ENCNTR FOR FOLLOW-UP EXAM AFTER TRTMT FO 05/14/2018 ASHLEE PRAKASH MD, Ot Z85.3 PERSONAL HISTORY OF MALIGNANT NEOPLASM O 05/14/2018 ASHLEE PRAKASH MD Ot Z92.3 PERSONAL HISTORY OF IRRADIATION 05/14/2018 ASHLEE PRAKASH MD Ot J43.9 EMPHYSEMA, UNSPECIFIED 05/14/2018 ASHLEE PRAKASH MD Ot K22.8 OTHER SPECIFIED DISEASES OF ESOPHAGUS 05/14/2018 ASHLEE PRAKASH MD Ot 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 05/14/2018 ASHLEE PRAKASH MD Ot R91.8 OTHER NONSPECIFIC ABNORMAL FINDING OF ZOHRA 05/14/2018 ASHLEE PRAKASH MD Ot Z12.31 ENCNTR SCREEN [...] ABNORMAL FINDING OF ZOHRA 05/14/2018 CARLOTTA THAO MD Ot Z12.31 ENCNTR SCREEN MAMMOGRAM FOR MALIGNANT NE 05/14/2018 CARLOTTA THAO MD Ot C50.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 05/14/2018 CARLOTTA THAO MD Ot R91.8 OTHER NONSPECIFIC ABNORMAL FINDING OF ZOHRA 05/14/2018 CARLOTTA THAO MD Ot Z12.31 ENCNTR SCREEN MAMMOGRAM FOR MALIGNANT NE 05/14/2018 VALDEZ DANIEL APRN Ot R10.31 RIGHT LOWER QUADRANT PAIN 05/14/2018 VALDEZ DANIEL APRN Ot R10.32 LEFT LOWER QUADRANT PAIN 05/14/2018 ASHLEE PRAKASH MD Ot F17.210 NICOTINE DEPENDENCE, CIGARETTES, UNCOMPL 05/14/2018 ASHLEE PRAKASH MD Ot M81.0 AGE-RELATED OSTEOPOROSIS W/O CURRENT PAT 05/14/2018 ASHLEE PRAKASH MD Ot R91.8 OTHER NONSPECIFIC ABNORMAL FINDING OF ZOHRA 05/14/2018 ASHLEE PRAKASH MD Ot Z08 ENCNTR FOR FOLLOW-UP EXAM AFTER TRTMT FO 05/14/2018 ASHLEE PRAKASH MD Ot Z85.3 PERSONAL HISTORY OF MALIGNANT NEOPLASM O 05/14/2018 ASHLEE PRAKASH MD Ot Z86.010 PERSONAL HISTORY OF COLONIC POLYPS 05/14/2018 SANDRA PERDUE, CHRISTEN Jamison Ot K57.30 DVRTCLOS OF LG INT W/O PERFORATION OR AB 05/14/2018 ASHLEE PRAKASH MD Ot J43.9 EMPHYSEMA, UNSPECIFIED 05/14/2018 ASHLEE PRAKASH MD, Ot K22.8 OTHER SPECIFIED DISEASES OF ESOPHAGUS 05/14/2018 ASHLEE PRAKASH MD, Ot 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 05/14/2018 ASHLEE PRAKASH MD, Ot R91.8 OTHER NONSPECIFIC ABNORMAL FINDING OF ZOHRA 05/14/2018 ASHLEE PRAKASH MD, Ot Z12.31 ENCNTR SCREEN MAMMOGRAM FOR MALIGNANT NE 05/14/2018 ASHLEE PRAKASH MD, Ot Z90.49 ACQUIRED ABSENCE [...] OF MALIGNANT NEOPLASM O 05/14/2018 ASHLEE PRAKASH MD Ot Z92.3 PERSONAL HISTORY OF IRRADIATION 06/04/2018 ASHLEE PRAKASH MD, Ot Z08 ENCNTR FOR FOLLOW-UP EXAM AFTER TRTMT FO 06/04/2018 ASHLEE PRAKASH MD, Ot Z85.3 PERSONAL HISTORY OF MALIGNANT NEOPLASM O 06/04/2018 ASHLEE PRAKASH MD, Ot Z92.3 PERSONAL HISTORY OF IRRADIATION 07/03/2018 ASHLEE PRAKASH MD Ot Z08 ENCNTR FOR FOLLOW-UP EXAM AFTER TRTMT FO 07/03/2018 ASHLEE PRAKASH MD, Ot Z85.3 PERSONAL HISTORY OF MALIGNANT NEOPLASM O 07/03/2018 XUN MD, ANN-SOLOMON Ot Z92.3 PERSONAL HISTORY OF IRRADIATION 07/16/2018 ASHLEE PRAKASH MD Ot Z08 ENCNTR FOR FOLLOW-UP EXAM AFTER TRTMT FO 07/16/2018 ASHLEE PRAKASH MD Ot Z85.3 PERSONAL HISTORY OF MALIGNANT NEOPLASM O 07/16/2018 ASHLEE PRAKASH MD Ot Z92.3 PERSONAL HISTORY OF IRRADIATION 12/13/2018 ROBERT TRONCOSO MD Ot F17.210 NICOTINE DEPENDENCE, CIGARETTES, UNCOMPL 12/13/2018 ROBERT TRONCOSO MD Ot F41.9 ANXIETY DISORDER, UNSPECIFIED 12/13/2018 ROBERT [...] STATUS TO SULFONAMIDES STATUS 12/17/2018 ROBERT TRONCOSO MD Ot Z88.8 ALLERGY STATUS TO OTH DRUG/MEDS/BIOL SUB 12/17/2018 ROBERT TRONCOSO MD Ot Z96.0 PRESENCE OF UROGENITAL IMPLANTS 12/17/2018 ROBERT TRONCOSO MD Ot Z98.890 OTHER SPECIFIED POSTPROCEDURAL STATES 01/26/2019 ASHLEE PRAKASH MD, Ot Z08 ENCNTR FOR FOLLOW-UP EXAM AFTER TRTMT FO 01/26/2019 ASHLEE PRAKASH MD, Ot Z85.3 PERSONAL HISTORY OF MALIGNANT NEOPLASM O 01/26/2019 ASHLEE PRAKASH MD Ot Z92.3 PERSONAL HISTORY OF IRRADIATION 01/26/2019 ASHLEE PRAKASH MD Ot Z12.31 ENCNTR SCREEN MAMMOGRAM FOR MALIGNANT NE 01/27/2019 ASHLEE PRAKASH MD Ot Z08 ENCNTR FOR FOLLOW-UP EXAM AFTER TRTMT FO 01/27/2019 ASHLEE PRAKASH MD Ot Z85.3 PERSONAL HISTORY OF MALIGNANT NEOPLASM O 01/27/2019 ASHLEE PRAKASH MD Ot Z92.3 PERSONAL HISTORY OF IRRADIATION 01/27/2019 ASHLEE PRAKASH MD Ot Z12.31 ENCNTR SCREEN MAMMOGRAM FOR MALIGNANT NE 01/27/2019 ASHLEE PRAKASH MD Ot Z08 ENCNTR FOR FOLLOW-UP EXAM AFTER TRTMT FO 01/27/2019 ASHLEE PRAKASH MD, Ot Z85.3 PERSONAL HISTORY OF MALIGNANT NEOPLASM O 01/27/2019 ASHLEE PRAKASH MD Ot Z92.3 PERSONAL HISTORY OF IRRADIATION 01/27/2019 ASHLEE PRAKASH MD, Ot Z12.31 ENCNTR SCREEN MAMMOGRAM FOR MALIGNANT NE Procedures Code Description Performed By Performed On [...] g/dL 3.2-4.5 CALCIUM CORRECTED 9.7 mg/dL 8.5-10.1 Complete urinalysis with reflex to culture - 01/26/19 15:55 Urine color determination YELLOW NRG Urine clarity determination CLEAR NRG Urine pH measurement by test strip 7 5-9 Specific gravity of urine by test strip 1.005 1.016- 1.022 Urine protein assay by test strip, semi-quantitative NEGATIVE NEGATIVE Urine glucose detection by automated test strip NEGATIVE NEGATIVE Erythrocytes detection in urine sediment by light microscopy 2+ NEGATIVE Urine ketones detection by automated test strip NEGATIVE NEGATIVE Urine nitrite detection by test strip NEGATIVE NEGATIVE Urine total bilirubin detection by test strip NEGATIVE NEGATIVE Urine urobilinogen measurement by automated test strip (mass/volume) NORMAL NORMAL Urine leukocyte esterase detection by dipstick NEGATIVE NEGATIVE Automated urine sediment erythrocyte count by microscopy (number/high power field) NONE NRG Automated urine sediment leukocyte count by microscopy (number/high power field ) NONE NRG Bacteria detection in urine sediment by light microscopy NEGATIVE NRG Crystals detection in urine sediment by light microscopy NONE NRG Casts detection in urine sediment by light microscopy NONE NRG Mucus detection in urine sediment by light microscopy NEGATIVE NRG Complete urinalysis with reflex to culture NO NRG Blood type T Indirect antibody screen panel - 01/26/19 16:41 ABO+Rh group AN NRG Transfusion band number [id number] NRG Blood group antibody screen NEGATIVE NRG Whole blood hemoglobin and hematocrit panel - 01/27/19 05:21 Venous blood hemoglobin measurement (mass/volume) 11.9 g/dL 11.5-16.0 Blood hematocrit (volume fraction) 35 % 35-52 Encounters ACCT No. Visit Date/Time Discharge Status Pt. Type Provider Facility Loc./Unit Complaint [id number] 01/26/2019 16:30:00 01/28/2019 10:40:00 DIS Inpatient CAROLINA PERDUE, ADRIANA Jerome [facility] 4TH FX R HIP [id number] 12/13/2018 21:23:00 12/13/2018 22:37:00 DIS Emergency ABA PERDUE, ROBERT Peraza [facility] ER HIGH BP, FACE FEELING NUMB [id number] 07/15/2018 00:22:00 07/15/2018 23:59:59 CLS Preadmit ASHLEE PRAKASH MD [facility] ONC [id number] 05/06/2018 10:01:00 05/14/2018 00:01:00 DIS Outpatient ASHLEE PRAKASH MD [facility] ONC [id number] 04/22/2018 10:14:00 05/06/2018 10:00:00 DIS Outpatient ASHLEE PRAKASH MD [facility] ONC [id number] 04/22/2018 10:43:00 04/22/2018 23:59:59 CLS Outpatient ASHLEE PRAKASH MD [facility] RAD PULMONARY NODULE [id number] 07/19/2017 11:14:00 07/19/2017 23:59:59 CLS Outpatient SANDRA PERDUE, CHRISTEN Jamison [facility] RAD ABD PAIN [id number] 07/19/2017 11:15:00 07/19/2017 11:15:00 CAN Preadmit ASHLEE PRAKASH MD [facility] RAD GERNERALIZED ABD PAIN [id number] 05/28/2017 10:15:00 05/28/2017 23:59:59 CLS Preadmit ASHLEE PRAKASH MD [facility] RAD PULMONARY NODULE R91.1 [id number] 05/28/2017 10:10:00 05/28/2017 23:59:59 CLS Preadmit ASHLEE PRAKASH MD [facility] RAD PULMONARY NODULE [id number] 05/28/2017 08:50:00 05/28/2017 23:59:59 CLS Outpatient ASHLEE PRAKASH MD [facility] ONC [id number] 03/02/2017 15:37:00 03/05/2017 08:30:00 DIS Outpatient MISSAEL BOWLES DPM [facility] REHAB ACHILLES TENDON RUPTURE CHRONIC [id number] 11/27/2016 12:52:00 02/18/2017 00:01:00 DIS Outpatient CARLOTTA THAO MD [facility] ONC [id number] 02/15/2017 09:28:00 02/15/2017 23:59:59 CLS Outpatient CARLOTTA THAO MD [facility] RAD SCREENING [id number] 02/02/2017 09:42:00 02/02/2017 23:59:59 CLS Outpatient VALDEZ DANIEL APRN [facility] RAD R L FLANK PAIN,ABD PAIN [id number] 11/20/2016 12:53:00 11/20/2016 23:59:59 CLS Outpatient CARLOTTA THAO MD [facility] RAD BREAST CA,MULTIPLE NODULES OF LUNG [id number] 05/01/2016 13:14:00 07/30/2016 00:01:00 DIS Outpatient CARLOTTA THAO MD [facility] ONC [id number] 05/17/2016 08:46:00 05/17/2016 12:10:00 DIS Outpatient ROXANE VILLAVICENCIO MD [facility] SDC HX POLPS [id number] 05/11/2016 05:35:00 05/11/2016 11:10:00 DIS Outpatient ROXANE VILLAVICENCIO MD [facility] PREOP HX POLPS [id number] 02/14/2016 07:24:00 02/14/2016 23:59:59 CLS Outpatient CARLOTTA THAO MD [facility] RAD SCREENING [id number] 09/20/2015 15:06:00 12/19/2015 00:01:00 DIS Outpatient CARLOTTA THAO MD [facility] ONC [id number] 10/27/2015 11:04:00 10/28/2015 17:43:00 DIS Outpatient ROXANE VILLAVICENCIO MD [facility] SDC CHOLELITHIASIS BILIARY COLIC [id number] 05/24/2015 08:05:00 07/14/2015 00:01:00 DIS Outpatient CARLOTTA THAO MD [facility] ONC [id number] 05/31/2015 09:50:00 05/31/2015 23:59:59 CLS Outpatient CARLOTTA THAO MD [facility] RAD BREAST CA,LUNG NODULES [id number] 03/18/2015 14:04:00 04/05/2015 00:01:00 DIS Outpatient CARLOTTA THAO MD [facility] ONC [id number] 02/10/2015 08:31:00 02/10/2015 23:59:59 CLS Outpatient CARLOTTA THAO MD [facility] RAD SCREENING [id number] 12/01/2014 07:01:00 12/01/2014 23:59:59 CLS Outpatient CHRISTEN FLORES MD [facility] RAD TOBACCOISM, HTN UNCONTROLLED [id number] 10/01/2014 09:17:00 10/01/2014 23:59:59 CLS Outpatient CARLOTTA THAO MD [facility] ONC [id number] 08/13/2014 14:21:00 08/13/2014 23:59:59 CLS Outpatient CHRISTEN FLORES MD [facility] RAD R HIP PAIN [id number] 03/17/2014 09:45:00 03/17/2014 23:59:59 CLS Outpatient CARLOTTA THAO MD [facility] ONC [id number] 02/09/2014 07:51:00 02/09/2014 23:59:59 CLS Outpatient CARLOTTA THAO MD [facility] RAD CA BREAST [id number] 09/01/2013 14:16:00 09/01/2013 23:59:59 CLS Outpatient CARLOTTA THAO MD [facility] ONC [id number] 02/18/2013 08:48:00 02/18/2013 23:59:59 CLS Outpatient CARLOTTA THAO MD [facility] ONC [id number] 04/23/2019 10:30:00 PEN Preadmit OLINDA PERDUE, ASHLEE [facility] RAD SCREENING [id number] 01/28/2019 11:00:00 ACT Inpatient FATUMA MORENO DO [facility] IRF RIGHT HIP FRACTURE [id number] 12/15/2015 11:08:00 Document Registration [id number] 11/17/2015 08:14:00 Document Registration [id number] 02/10/2015 08:32:00 Document Registration [id number] 02/10/2015 08:32:00 Document Registration [id number] 02/06/2013 07:22:00 Document Registration [id number] 09/19/2012 06:04:00 Document Registration [id number] 09/16/2012 12:45:00 Document Registration [id number] 08/20/2012 09:14:00 Document Registration [id number] 07/16/2012 11:14:00 Document Registration [id number] 03/24/2012 10:27:00 Document Registration [id number] 03/20/2012 15:26:00 Document Registration [id number] 02/13/2012 08:52:00 Document Registration [id number] 02/06/2012 09:12:00 Document Registration [id number] 10/03/2011 09:19:00 Document Registration [id number] 09/28/2011 07:06:00 Document Registration [id number] 09/25/2011 13:08:00 Document Registration [id number] 09/01/2011 10:25:00 Document Registration [id number] 05/10/2011 13:01:00 Document Registration [id number] 02/01/2011 07:29:00 Document Registration [id number] 12/21/2010 10:01:00 Document Registration [id number] 11/01/2010 09:25:00 Document Registration [id number] 08/15/2017 08:27:06 08/15/2017 23:59:59 [facility] Outpatient Christen Flores
[2019-01-28] MEDS ORDERED: morphine INJ 4 MG/ML 1 ML (VIAL/SYRINGE) IV PRN (12:15)
[2019-01-28] MEDS ORDERED: FAMOTIDINE 20 MG (PEPCID) TABLET PO PRN (12:15)
[2019-01-28] MEDS ORDERED: HYDROcodone/APAP 5 MG/325 MG (LORTAB) TAB PO PRN (12:15)
[2019-01-28] MEDS ORDERED: ONDANSETRON 4 MG/2 ML (SDV) Z0FRAN IV PRN (12:15)
[2019-01-28] MEDS: HYDROcodone/APAP 5 MG/325 MG (LORTAB) TAB PO PRN ×2 (12:29→19:34)
--- NOTE | 2019-01-28 12:34 | NUR ---
REVIEWED MED REC IT WAS REPORTED UPON ADMISSION TO 4TH FLOOR.
--- NOTE | 2019-01-28 12:56 | ST Cognitive Linguistic Eval ---
Speech Evaluation-General Medical Diagnosis right hip fx Onset Date: Jan 25, 2019 Therapy Diagnosis Therapy Diagnosis: Cognitive-communication Precautions Precautions/Isolations: Standard Precautions Referral Referring Physician: Dr. Stein Medical History Pertinent Medical History: HTN, Smoking Reviewed History: No Social History Current Living Status: Spouse Speech PLF-Current Status Prior Level of Function Patient lived with her and was independent for her daily needs. Subjective The patient was resting in her recliner when I entered her room Language Eval: Auditory Comprehends Simple Yes/No Ques: Functional Indent/Objects Multiple Cuellar: Functional Ident/Pics in Multiple Cuellar: Functional Follows 1-Step Commands: Functional Follows Complex Directions: Functional Follows General Conversations: Functional Language Eval: Verbal Language Completes Spontaneous Greeting: Functional Produces Auto, Serial Info: Functional Imitates Simple Words/Phrases: Functional Word Finding: Functional Requests Basic Needs: Functional States Basic Personal Info: Functional Expresses Complex Ideas: Functional Objective Cognitive Domain Attention: WNL Memory: WNL Problem Solving: Functional Executive Functions: WNL Visuospatial Skills: WNL Composite Severity Rating: WNL Clock Drawing Severity Rating: WNL Objective Formal/Standardized Tests Branch Cognitive Assessment (MOCA) Results Visuospatial/Executive: 5/5, Namin/3, Memory: Immediate 5/5, Delayed 5/5, Attention: 6/6, Language: 3/3, Abstraction: 2/2, Orientation: 6/6 Oral Motor/Speech Production Within Functional Limits Impression The patient is a pleasant 73 year old female who was admitted to the ARU s/p fx right hip. The patient lived at home with her and was independent for her daily needs prior to her fall. She was evaluated in her room with the MOCA and scored 100% for all areas tested. The patient does not warrant skilled ST services at this time. Communication/Social Cognition Comprehension: 7 Expression: 7 Social Interaction: 7 Problem Solvin Memory: 7 Speech Patient Assess Expression of Ideas/Wants: Expression (4) Understanding Verbal Content: Understands (4) Brief Interview-Mental Status: Yes Repetition of Three Words: Three (3) Temporal Orientation: Year: Correct (3) Temporal Orientation: Day: Correct (1) Recall : Wear to say "Sock": Yes, no cue required (2) Recall : Color: Yes, no cue required (2) Recall : Bed: Yes, no cue required (2) Memory/Recall Ability: Current season, Location of own room, That he or she is in a hsp/hsp unit Speech-Plan Patient/Family Goals Patient/Family Goals: The patient plans to return home post rehab. Treatment Plan Speech Therapy Treatment Plan: Discontinue ST The patient does not require skilled ST services at this time. Treatment Duration: Jan 28, 2019 Frequency: 1 time per week Estimated Hrs Per Day: .25 hour per day Rehab Potential: Good Barriers to Learning: None identified. Pt/Family Agrees to Plan: Yes Safety Risks/Education Teaching Recipient: Patient Teaching Methods: Discussion Response to Teaching: Verbalize Understanding Education Topics Provided: Safety within her room. Time Speech Therapy Time In: 12:35 Speech Therapy Time Out: 12:50 Total Billed Time: 15 Billed Treatment Time 1, NADJA Yo Jan 28, 2019 12:56
--- NOTE | 2019-01-28 14:30 | Occupational Therapy Eval ---
OT Evaluation-General/PLF Medical Diagnosis Admission Date Jan 28, 2019 at 11:00 Medical Diagnosis: right hip fx/ORIF right hip Onset Date: Jan 25, 2019 Therapy Diagnosis Therapy Diagnosis: Weakness, Decreased ADL skills Height/Weight Height (Feet): 5 Height (Inches): 8.00 Weight (Pounds): 164 Weight (Ounces): 6.0 Precautions Precautions/Isolations: Standard Precautions Weight Bear Status Weight Bearing Restriction: Touch Toe Bearing Referral Physician: Sarita Referral Reason: Activity Tolerance, Self Care, Evaluation/Treatment, Strengthening/ROM Medical History Pertinent Medical History: HTN, Smoking Current History Pt. fell coming out of restaurant. Fx right hip. Reviewed History: Yes Social History Home: Single Level Current Living Status: Spouse Entry Into Home: Stairs With Railing ADL-Prior Level of Function Therapy Code Descriptions/Definitions Functional [place] Measure: 0=Not Assessed/NA 4=Minimal Assistance 1=Total Assistance 5=Supervision or Setup 2=Maximal Assistance 6=Modified [place] 3=Moderate Assistance 7=Complete [place] Therapy Quality Codes: 6 Independent with activity with or without an assistive device 5 Patient requires set up or clean up by helper. Patient completes activity by themselves 4 Supervision or touching assist (CGA). [place] provide cues , steadying assist 3 The helper provides less than half the effort to complete the activity 2 The helper provides more than half the effort to complete the activity 1 Dependent. The helper does all the effort to complete an activity 7 Patient refused to complete or attempt activity 9 The patient did not perform the activity before the current illness or injury 88 Not attempted due to Medical conditions or safety concerns Functional Abilities and Goals: Independent: Patient completed the activities by him/herself, with or without an assistive device, with no assistance from a helper. Needed Some Help: Patient needed partial assistance from another person to complete activities. Dependent: A helper completed the activities for the patient. Unknown: Not Applicable: ADL PLOF Comments Pt. was independent with daily tasks. Does not use AE. Self Care: Independent Functional Cognition: Independent DME/Equipment: Shower DME/Equipment Comments Pt. has walker that was her mother's. Drive Self: Yes OT Current Status Subjective Does not report pain level. Appearance Pt. up in chair. Agrees to work with OT. Mental Status/Objective Patient Orientation: Person, Place, Time, Situation Current Hand Dominance: Right Upper Extremity ROM WFL Upper Extremity Strength WFL ADL-Treatment Grooming (FIM): 5 Oral Hygiene (QC): 4 Bathing (FIM): 3 (Pt. requires CGA in stance to wash sharon area. Max assist to wash bilateral feet.) Shower/Bathe Self (QC): 3 Lower Body Dressing (FIM): 1 (Slipper socks only. OT dons OSCAR hose for her as they were on to begin with.) Lower Body Dressing (QC): 1 On/Off Footwear (QC): 1 Toileting (FIM): 4 Toileting Hygiene (QC): 4 Transfers (B, C, W/C) (FIM): 4 Toilet/Commode Transfer (FIM): 4 Toilet Transfer (QC): 4 Other Treatments Pt. requests to spongebathe instead of shower at this time. No street clothing here. Spouse to get for her later. Pt. is educated about rehab goals and OT goals. Verbalizes understanding. All needs met up in chair. Education OT Patient Education: Correct positioning, Modified ADL techniques, Progress toward Goal/Update tx plan, Purpose of tx/functional activities, Reviewed precautions, Rehab process, Transfer techniques Teaching Recipient: Patient Teaching Methods: Demonstration, Discussion Response to Teaching: Verbalize Understanding, Return Demonstration OT Short Term Goals Short Term Goals Transfers (B,C,W/C) (FIM): 5 1=Demonstrate adherence to instructed precautions during ADL tasks. 2=Patient will verbalize/demonstrate understanding of assistive devices/ modifications for ADL. 3=Patient will improve strength/tolerance for activity to enable patient to perform ADL's. OT Dev Manager Goals Dev Manager Goals Time Frame: Feb 04, 2019 Eating (FIM): 6 Eating (QC): 6 Groomin Oral Hygiene (QC): 6 Bathing(FIM): 5 Shower/Bathe Self (QC): 5 Upper Body Dressing(FIM): 6 Upper Body Dressing (QC): 6 Lower Body Dressing(FIM): 6 Lower Body Dressing (QC): 6 On/Off Footwear (QC): 6 Toileting(FIM): 6 Toileting Hygiene (QC): 6 Transfers (B,C,W/C) (FIM): 6 Toilet/Commode Transfer(FIM): 6 Toilet/Commode Transfer (QC): 6 Shower Transfer(FIM): 5 Additional Goals: 1-Demonstrate ADL Tasks, 2-Verbalize Understanding, 3- ImproveStrength/Martina 1=Demonstrate adherence to instructed precautions during ADL tasks. 2=Patient will verbalize/demonstrate understanding of assistive devices/ modifications for ADL. 3=Patient will improve strength/tolerance for activity to enable patient to perform ADL's. OT Education/Plan Problem List/Assessment Assessment: Decreased Activ Tolerance, Dependent Transfers, Impaired Funct Balance, Impaired I ADL's, Impaired Self-Care Skills Discharge Recommendations Plan/Recommendations: Continue POC Therapy D/C Recommendations: Home w/ Family Support, Occupational Therapy Home Care Equpiment Recommendations-D/C: Bath Chair, Hip Kit Treatment Plan/Plan of Care Treatment,Training & Education: Yes Patient would benefit from OT for education, treatment and training to promote independence in ADL's, mobility, safety and/or upper extremity function for ADL' s. Plan of Care: ADL Retraining, Functional Mobility, UE Funct Exercise/Act Treatment Duration: Feb 04, 2019 Frequency: At least 5 of 7 days/Wk (IRF) Estimated Hrs Per Day: 1.5 hours per day Agreement: Yes Rehab Potential: Good Time/GCodes Start Time: 11:30 Stop Time: 12:15 Total Time Billed (hr/min): 45 Billed Treatment Time 1, EVM x 15minutes, ADL x 30minutes PALOMA MEJIA OT Jan 28, 2019 14:30
--- NOTE | 2019-01-28 14:34 | Physical Therapy Daily Note ---
PT Daily Note-Current Subjective Patient in a recliner pre tx, agrees to PT, has 5/10 pain in right hip. Appearance Patient in recliner post tx with nurse call, phone, tray, all needs met. Mental Status Patient Orientation: Person, Place, Situation Transfers Therapy Code Descriptions/Definitions Functional [place] Measure: 0=Not Assessed/NA 4=Minimal Assistance 1=Total Assistance 5=Supervision or Setup 2=Maximal Assistance 6=Modified [place] 3=Moderate Assistance 7=Complete [place] Therapy Quality Codes: 6 Independent with activity with or without an assistive device 5 Patient requires set up or clean up by helper. Patient completes activity by themselves 4 Supervision or touching assist (CGA). [place] provide cues , steadying assist 3 The helper provides less than half the effort to complete the activity 2 The helper provides more than half the effort to complete the activity 1 Dependent. The helper does all the effort to complete an activity 7 Patient refused to complete or attempt activity 9 The patient did not perform the activity before the current illness or injury 88 Not attempted due to Medical conditions or safety concerns Transfers (B, C, W/C) (FIM): 5 Sit to/from Stand: 5 Bed to/from Chair: 5 Cues for hand placement and positioning Weight Bearing Right Lower Extremity: Right Touch Toe Bearing Left Lower Extremity: Left Full Weight Bearing Gait Training Gait (FIM): 1 Distance: 30'x2, 20' Walking 10ft/uneven surface-QC: 4 Gait Level of Assist: 4 Gait Persons Needed: 1 Gait Assistive Device: FWW Patient can ambulate 30' with a rolling walker with CGA, can ambulate 10' over an uneven surface using a rolling walker with CGA. She is able to maintain her weight bearing but her arms get fatigued. Stair Training Stairs (FIM): 1 Patient was not able to go up and down 1 step because she could not bear all of her weight through her arms long enough to get her left leg completely on the step. Exercises Standing: Hamstring curls, 3 way Ex=Flex, Abd, Ext, Marching (only right leg) LAQ alternating for 5 min Treatments transfers, ambulation, functional strengthening Assessment Current Status: Fair Progress improving endurance PT Short Term Goals Short Term Goals Time Frame: Feb 04, 2019 Transfers (B,C,W/C) (FIM): 5 Gait (FIM): 4 PT Business Services Administrator Goals Business Services Administrator Goals PT Senior Living Goals Time Frame: Feb 11, 2019 Transfers (B,C,W/C) (FIM): 7 Sit to Lying (QC): 6 Lying-Sitting on Side/Bed(QC): 6 Sit to Stand (QC): 6 Rollin Roll Left to Right (QC): 6 Chair/Lag-fl-Kztup Xfer(QC): 6 Car Transfer (QC): 6 Does the Patient Walk: Yes Gait distance (FIM): 3=150 ft Distance: 200 Walk 10 feet (QC): 6 Walk 10ft-Uneven Surface(QC): 6 Walk 50ft with 2 Turns (QC): 6 Walk 150 ft (QC): 6 Gait Assistive Device: FWW Does the Pt use WC or Scooter?: No Stairs (FIM): 5 # of Steps: 4 1 Step (curb) (QC): 6 4 Steps (QC): 6 12 Steps (QC): 88 Picking up an Object (QC): 88 PT Plan Problem List Problem List: Activity Tolerance, Functional Strength, Safety, Balance, Gait, Transfer, Bed Mobility, ROM Treatment/Plan Treatment Plan: Continue Plan of Care Treatment Plan: Bed Mobility, Education, Functional Activity Martina, Functional Strength, Group Therapy, Gait, Safety, Therapeutic Exercise, Transfers Treatment Duration: Feb 11, 2019 Frequency: At least 5 of 7 days/Wk (IRF) Estimated Hrs Per Day: 1.5 hours per day Patient and/or Family Agrees t: Yes Safety Risks/Education Patient Education: Gait Training, Transfer Techniques, Reviewed Precautions, Correct Positioning, Safety Issues Teaching Recipient: Patient Teaching Methods: Demonstration, Discussion Response to Teaching: Reinforcement Needed Time/GCodes Time In: 1350 Time Out: 1430 Total Billed Treatment Time: 40 Total Billed Treatment 1 visit GT 15' EX 25' PRUDENCE RODRIGUEZ PT Jan 28, 2019 14:34
--- NOTE | 2019-01-28 14:41 | Occupational Ther Daily Note ---
OT Current Status-Daily Note Subjective No pain reported. Appearance Pt. up in chair. Agrees to treatment. Mental Status/Objective Patient Orientation: Person, Place, Time, Situation Therapy Code Descriptions/Definitions Functional [place] Measure: 0=Not Assessed/NA 4=Minimal Assistance 1=Total Assistance 5=Supervision or Setup 2=Maximal Assistance 6=Modified [place] 3=Moderate Assistance 7=Complete [place] ADL-Treatment Therapy Code Descriptions/Definitions Functional [place] Measure: 0=Not Assessed/NA 4=Minimal Assistance 1=Total Assistance 5=Supervision or Setup 2=Maximal Assistance 6=Modified [place] 3=Moderate Assistance 7=Complete [place] Therapy Quality Codes: 6 Independent with activity with or without an assistive device 5 Patient requires set up or clean up by helper. Patient completes activity by themselves 4 Supervision or touching assist (CGA). [place] provide cues , steadying assist 3 The helper provides less than half the effort to complete the activity 2 The helper provides more than half the effort to complete the activity 1 Dependent. The helper does all the effort to complete an activity 7 Patient refused to complete or attempt activity 9 The patient did not perform the activity before the current illness or injury 88 Not attempted due to Medical conditions or safety concerns Lower Body Dressing (FIM): 4 (Min assist to don and doff slipper socks with AE. ) Lower Body Dressing (QC): 4 Transfers (B, C, W/C) (FIM): 4 Other Treatment Pt. agrees to work with OT. Pt. is issued and educated on AE for LE dressing. Pt. verbalizes understanding, and practices doffing/donning slipper socks. Pt. is also issued theraband and therapy sponge to increase overall strength and independence with daily tasks. All needs are met and questions addressed. Education OT Patient Education: Correct positioning, Exercise program, Home exercise program, Modified ADL techniques, Progress toward Goal/Update tx plan, Purpose of tx/functional activities, Reviewed precautions, Rehab process, Transfer techniques, Use of adapted equipment Teaching Recipient: Patient Teaching Methods: Demonstration, Discussion Response to Teaching: Verbalize Understanding, Return Demonstration OT Short Term Goals Short Term Goals Transfers (B,C,W/C) (FIM): 5 1=Demonstrate adherence to instructed precautions during ADL tasks. 2=Patient will verbalize/demonstrate understanding of assistive devices/ modifications for ADL. 3=Patient will improve strength/tolerance for activity to enable patient to perform ADL's. OT Chcf Goals Induction Machine Operator Goals Time Frame: Feb 04, 2019 Eating (FIM): 6 Eating (QC): 6 Groomin Oral Hygiene (QC): 6 Bathing(FIM): 5 Shower/Bathe Self (QC): 5 Upper Body Dressing(FIM): 6 Upper Body Dressing (QC): 6 Lower Body Dressing(FIM): 6 Lower Body Dressing (QC): 6 On/Off Footwear (QC): 6 Toileting(FIM): 6 Toileting Hygiene (QC): 6 Transfers (B,C,W/C) (FIM): 6 Toilet/Commode Transfer(FIM): 6 Toilet/Commode Transfer (QC): 6 Shower Transfer(FIM): 5 Additional Goals: 1-Demonstrate ADL Tasks, 2-Verbalize Understanding, 3- ImproveStrength/Martina 1=Demonstrate adherence to instructed precautions during ADL tasks. 2=Patient will verbalize/demonstrate understanding of assistive devices/ modifications for ADL. 3=Patient will improve strength/tolerance for activity to enable patient to perform ADL's. OT Education/Plan Problem List/Assessment Assessment: Decreased Activ Tolerance, Impaired Funct Balance, Impaired I ADL's , Impaired Self-Care Skills Discharge Recommendations Plan/Recommendations: Continue POC Therapy D/C Recommendations: Home w/ Family Support, Occupational Therapy Home Care Equpiment Recommendations-D/C: Hip Kit Treatment Plan/Plan of Care Treatment,Training & Education: Yes Patient would benefit from OT for education, treatment and training to promote independence in ADL's, mobility, safety and/or upper extremity function for ADL' s. Plan of Care: ADL Retraining, Functional Mobility, UE Funct Exercise/Act Treatment Duration: Feb 04, 2019 Frequency: At least 5 of 7 days/Wk (IRF) Estimated Hrs Per Day: 1.5 hours per day Agreement: Yes Rehab Potential: Good Time/GCodes Start Time: 13:05 Stop Time: 13:45 Total Time Billed (hr/min): 40 Billed Treatment Time 1, ADL x 3 PALOMA MEJIA OT Jan 28, 2019 14:41
[2019-01-28] MEDS ORDERED: PATIENT MAY USE OWN MED,SINGLE MED PO SCH (16:45)
[2019-01-28 18:00] VITALS: BP 146/78
[2019-01-28] MEDS: lisINopril 20 MG (PRINIVIL) TABLET PO SCH (21:14)
[2019-01-28] MEDS: DOCUSATE SODIUM 100 MG (COLACE) CAP PO SCH (21:14)
[2019-01-29] MEDS: HYDROcodone/APAP 5 MG/325 MG (LORTAB) TAB PO PRN ×4 (04:06→22:37)
[2019-01-29 05:10] VITALS: BP 145/77
[2019-01-29 06:08] LABS: BASOPHILS % (AUTO) 0 % (0-10); EOSINOPHILS # (AUTO) 0.1 10^3/uL (0.0-0.3); EOSINOPHILS % (AUTO) 2 % (0-10); HEMATOCRIT 32 % (35-52); HEMOGLOBIN 10.6 G/DL (11.5-16.0); LYMPHOCYTES # (AUTO) 1.7 X 10^3 (1.0-4.0); LYMPHOCYTES % (AUTO) 22 % (12-44); MEAN CORPUSCULAR HEMOGLOBIN 32 PG (25-34); MEAN CORPUSCULAR HGB CONC 34 G/DL (32-36); MEAN CORPUSCULAR VOLUME 95 FL (80-99); MEAN PLATELET VOLUME 8.4 FL (7.4-10.4); MONOCYTES # (AUTO) 0.5 X 10^3 (0.0-1.0); MONOCYTES % (AUTO) 7 % (0-12); NEUTROPHILS # (AUTO) 5.4 X 10^3 (1.8-7.8); NEUTROPHILS % (AUTO) 69 % (42-75); PLATELET COUNT 204 10^3/uL (130-400); RED CELL DISTRIBUTION WIDTH 13.6 % (10.0-14.5); WHITE BLOOD COUNT 7.8 10^3/uL (4.3-11.0)
[2019-01-29 07:04] LABS: ALANINE AMINOTRANSFERASE 44 U/L (0-55); ALBUMIN 3.2 GM/DL (3.2-4.5); ALKALINE PHOSPHATASE 72 U/L (40-136); BILIRUBIN,TOTAL 0.8 MG/DL (0.1-1.0); BUN/CREATININE RATIO 11; CALCIUM 8.8 MG/DL (8.5-10.1); CARBON DIOXIDE 25 MMOL/L (21-32); CHLORIDE 106 MMOL/L (98-107); CREATININE SERUM 0.63 MG/DL (0.60-1.30); GFR ESTIMATED > 60; GLUCOSE 101 MG/DL (70-105); POTASSIUM 3.4 MMOL/L (3.6-5.0); SODIUM 139 MMOL/L (135-145); TOTAL PROTEIN 5.3 GM/DL (6.4-8.2)
[2019-01-29 08:00] VITALS: BP 105/68
[2019-01-29] MEDS: ENOXAPARIN 40 MG/0.4 ML (LOVENOX) SYR SC SCH (08:16)
--- NOTE | 2019-01-29 08:16 | NUR ---
BOSOM PRESSER met with patient to complete initial assessment; however, patient was in therapy gym completing therapies. BOSOM PRESSER obtained information from patients spouse. Patient resided with spouse in a one level home in [place], [place]. The has two steps at the entrance with hand rails. Patient admitted to ARU from internally with R hip fracture (repair by Dr. Rodríguez). Per spouse, patient was independent with ambulation and self care until fall. Patient is very active in the community and continues to drive. She required no DME; however, does have leftover equipment from her mother, including a FWW, school patrol and potentially other items that are stored. Primary contact identified as spouse, Eddie at [phone], spouse states children live out of the area and they do not have a local secondary contact to list.. PCP verified as Dr. George. Patient has [facility] and utilizes [facility] for local pharmacy needs. BOSOM PRESSER reviewed typical rehab length of stay and weekly team conferences with spouse, he expressed no concerns; however, does state the patient is hopeful to return home on Sunday, 02/02. BOSOM PRESSER will discuss progress today in Team Conference to determine if this date is achievable. BOSOM PRESSER will follow for appropriate discharge needs.
[2019-01-29] MEDS: FUROSEMIDE 20 MG (LASIX) TAB PO SCH (08:17)
[2019-01-29] MEDS: DOCUSATE SODIUM 100 MG (COLACE) CAP PO SCH ×2 (08:17→20:32)
[2019-01-29] MEDS: lisINopril 20 MG (PRINIVIL) TABLET PO SCH ×2 (08:18→20:32)
[2019-01-29] MEDS: DULOXETINE 60 MG CAPSULE PO SCH (08:18)
--- NOTE | 2019-01-29 08:52 | Individualized Plan of Care ---
Individualized Plan of Care Rehab Nursing IPOC Order Admission Date Jan 28, 2019 at 11:00 Current Orders Orders Admission Order(Inpt,Obs,Sdc) (01/28/19 10:14) Vital Signs: Per Unit Policy ( ,00 (01/28/19 10:14) Gantry Crane Operator-Inpt Rehab Con (01/28/19 10:14) Rehab Nursing Orders-Ipoc (01/28/19 10:14) Physical Therapy Rehab Orders (01/28/19 10:14) Occupational Therapy Rehab Ord (01/28/19 10:14) Speech Therapy Rehab Orders (01/28/19 10:14) Intake & Output ,14,22 (01/28/19 10:14) Weight Bearing Status (01/28/19 10:14) Precautions (Aru) (01/28/19 10:14) Weekly Weight (Lbs) WEEK (01/28/19 10:14) Rehab-Intensity Of Therapy (01/28/19 10:14) Code/Resuscitation (01/28/19 10:14) Initiate Admission Nursing Pro .admission (01/28/19 10:14) Hydrocodone/Apap 5/325 Tablet (Lortab 5 (01/28/19 12:00) Code/Resuscitation (01/28/19 12:06) Catheter(Urinary) Discontinue (01/28/19 12:06) Iv Convert To Heplock (Order) (01/28/19 12:06) Incentive Spirometry (Nursing) Q2H (01/28/19 12:06) Sequential Compression Device 08,20 (01/28/19 12:06) Tj Hose , (01/28/19 12:06) Up With Assistance As Tolerate (01/28/19 12:06) Vital Signs: Every 4 Hours (Or (01/28/19 12:06) Weight Bearing Status (01/28/19 12:06) Docusate Sodium Capsule (Colace Capsule) (01/28/19 21:00) Famotidine Tablet (Pepcid Tablet) (01/28/19 12:15) Furosemide Tablet (Lasix Tablet) (01/29/19 09:00) Enoxaparin Injection (Lovenox Injection) (01/29/19 08:00) Magnesium Hydroxide Oral Susp (Mom Oral (01/28/19 12:15) Duloxetine Capsule (Cymbalta Capsule) (01/29/19 09:00) Ondansetron Injection (Zofran Injectio (01/28/19 12:15) Metoprolol Succinate (Xl) Tab (Toprol Xl (01/28/19 21:00) Morphine Injection (Morphine Injection (01/28/19 12:15) Ice: Apply To Affected Area (01/28/19 12:06) Consult Physician (01/28/19 12:06) Cbc With Automated Diff (01/29/19 06:00) Comprehensive Metabolic Panel (01/29/19 06:00) General/Regular (01/28/19 Lunch) Lisinopril Tablet (Zestril Tablet) (01/29/19 09:00) Patient Visit (01/28/19 ) Speech Sound Lang Comp (01/28/19 ) Patient Visit (01/28/19 ) Pt Eval Moderate Complexity (01/28/19 ) Functional Activities, Ea 15 (01/28/19 ) Patient Visit (01/28/19 ) Exercise Therap, Ea 15 Min (01/28/19 ) Gait Training, Ea 15 Min (01/28/19 ) Ambulate 08,12,20 (01/28/19 14:53) Sequential Compression Device 08,20 (01/28/19 14:53) Dvt/Vte Risk - Notifiy Physici 08 (01/28/19 14:53) Patient May Use Own Med,Single (Patient (01/28/19 16:45) Patient's Own Med(Rx Use Only) (Patient' (01/29/19 09:00) Metoprolol Succinate (Xl) Tab (Toprol Xl (01/28/19 21:00) Lidocaine 4% Patch (Salonpas 4% Patch) (01/29/19 11:00) Potassium Chloride (Tablet) (K Dur Table (01/29/19 11:03) Patch Removal (Patch Removal) (01/29/19 21:00) Patient Visit (01/29/19 ) Gait Training, Ea 15 Min (01/29/19 ) Exercise Therap, Ea 15 Min (01/29/19 ) Functional Activities, Ea 15 (01/29/19 ) Exercise Therap, Ea 15 Min (01/29/19 ) Patient Visit (01/29/19 ) Rehab Nursing Orders: Ongoing Assess. of Function Status, Bladder Management, Bowel Management, DVT Prophylaxis, Fall Prevention, Fluid/Electrolyte/Nutrition Mgmt, Medication Management & Education, Wound Management Intensity of Therapy to be met Patient to be seen: Min.3h per day/5 of 7d PT IPOC Problem List: Activity Tolerance, Functional Strength, Safety, Balance, Gait, Transfer, Bed Mobility, ROM Treatment Plan: Continue Plan of Care Bed Mobility, Education, Functional Activity Martina, Functional Strength, Group Therapy, Gait, Safety, Therapeutic Exercise, Transfers Treatment Duration: Feb 11, 2019 Frequency: At least 5 of 7 days/Wk (IRF) Estimated Hrs Per Day: 1.5 hours per day OT IPOC Problems: Decreased Activ Tolerance, Impaired Funct Balance, Impaired I ADL's, Impaired Self-Care Skills OT Treatment, Training and Edu: Yes Plan of Care: ADL Retraining, Functional Mobility, UE Funct Exercise/Act Treatment Duration: Feb 04, 2019 Frequency: At least 5 of 7 days/Wk (IRF) Estimated Hrs Per Day: 1.[address] IPOC Speech Therapy Treatment Plan: Discontinue ST Treatment Duration: Jan 28, 2019 Frequency: 1 time per week Estimated Hrs Per Day: .25 hour per day Gantry Crane Operator/Case Mgmt Gantry Crane Operator/Case Managemen: Discharge Planning Dietitian/Build Automation Engineer Dietitian/Build Automation Engineer to monitor nutritional status and make changes and/or recommendations as needed and work with speech pathology on dietary upgrades as the occur. Physician IPOC Medical Issues being managed closely and that require the 24 hour availability of a physician: Pain control from hip fracture which may delay recovery Monitor bowel status high risk for narcotic bowel Monitor lungs due to smoking and high risk for COPD issues Medical Issues: Bowel/Bladder Function, DVT Prophylaxis, Falls Precautions, Fluid/Electrolyte/Nutrition Balance Brief Synthesis of Preadmission Screen, Post-Admission Evaluation, and Therapy Evaluations: PT will focus on ambulation and walker use with toe touch OT will facilitate ADL independence Medical Prognosis: Good Anticipated Length of Stay: 7 days FATUMA MORENO DO Jan 29, 2019 08:52
--- NOTE | 2019-01-29 08:52 | PM&R Progress Note ---
Subjective HPI/CC On Admission Date Seen by Provider: Jan 29, 2019 Time Seen by Provider: 08:30 Chief Complaint: Right hip fracture HPI: This is a female pt of Dr. George who sustained a right hip fracture after a fall. At this current time pt is participating in therapy. We are in the midst of repeating x-ray to evaluate if toe touch could be lifted and weight bearing is tolerated in order to participate in all therapies as much as possible. She reports shes urinating well and has not had a BM since admission. Her BP is reviewed and it is very labile so need to watch that closely. Reviewed her home medications. Her pain is controlled. is at the bedside. 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 Her prior level of functioning was independent and her current level of functioning is 1 to 2 person assist. Barriers to returning home will include ability to ambulate and perform independent ADL's. Subjective/Events-last exam No BM yet since returning from [facility] floor after hip fracture repair. Pain is much improved. Remains toe touch for six weeks total. Participating in all therapies. Denies chest pain or SOB. Using IS. Lidocaine patch was placed on incision site with good results by Dr. George. Reviewed therapy notes and meds Review of Systems Musculoskeletal: leg pain Objective Exam Vital Signs Vital Signs Date Time Temp Pulse Resp B/P (MAP) Pulse Ox O2 Delivery O2 Flow Rate FiO2 01/29/19 18:00 98.4 77 20 113/73 (86) 94 Room Air Capillary Refill : Less Than 3 Seconds General Appearance: No Apparent Distress, WD/WN, Chronically ill HEENT: PERRL/EOMI, Normal ENT Inspection, Pharynx Normal, Moist Mucous Membranes Neck: Full Range of Motion, Normal Inspection, Non Tender, Supple Respiratory: Chest Non Tender, Lungs Clear, Normal Breath Sounds, No Accessory Muscle Use, No Respiratory Distress Cardiovascular: Regular Rate, Rhythm, No Edema, No Gallop, No JVD, No Murmur Gastrointestinal: Normal Bowel Sounds, No Organomegaly, No Pulsatile Mass, Non Tender, Soft Back: Normal Inspection, No CVA Tenderness, No Vertebral Tenderness Extremity: Normal Capillary Refill, Normal Inspection, Normal Range of Motion ( except right leg), Non Tender, No Calf Tenderness, No Pedal Edema Neurologic/Psychiatric: Alert, Oriented x3, No Motor/Sensory Deficits ( decreased right leg ROM due to pain), Normal Mood/Affect Skin: Normal Color, Warm/Dry Lymphatic: No Adenopathy Results/Procedures Lab Laboratory Tests 01/29/19 05:55 Patient resulted labs reviewed. FIM Transfers Therapy Code Descriptions/Definitions Functional [place] Measure: 0=Not Assessed/NA 4=Minimal Assistance 1=Total Assistance 5=Supervision or Setup 2=Maximal Assistance 6=Modified [place] 3=Moderate Assistance 7=Complete [place] Therapy Quality Codes: 6 Independent with activity with or without an assistive device 5 Patient requires set up or clean up by helper. Patient completes activity by themselves 4 Supervision or touching assist (CGA). [place] provide cues , steadying assist 3 The helper provides less than half the effort to complete the activity 2 The helper provides more than half the effort to complete the activity 1 Dependent. The helper does all the effort to complete an activity 7 Patient refused to complete or attempt activity 9 The patient did not perform the activity before the current illness or injury 88 Not attempted due to Medical conditions or safety concerns Gait Training Does the Patient Walk?: Yes Distance (FIM): 1=up to 49 ft Mental Status/Objective Comprehension: 7 Expression: 7 Social Interaction: 7 Problem Solvin Memory: 7 ADL-Treatment Groomin Oral Hygiene (QC): 4 Bathin (Pt. requires CGA in stance to wash shraon area. Max assist to wash bilateral feet.) Shower/Bathe Self (QC): 3 Lower Extremity Dressin (Min assist to don and doff slipper socks with AE.) Lower Body Dressing (QC): 4 On/Off Footwear (QC): 1 Toiletin Toileting Hygiene (QC): 4 Toilet/Commode Transfer: 4 Toilet Transfer (QC): 4 Assessment/Plan Assessment and Plan Assess & Plan/Chief Complaint Assessment: s/p right hip fracture s/p repair Dr Rodríguez HTN Smoker h/o breast cancer h/o diverticulosis Post op constipation Plan: IRF Intensive therapies Toe touch x 6 weeks Home meds BM regimen (1) Closed right hip fracture (2) Smoker (3) Hypertension (4) DVT prophylaxis (5) HX: breast cancer (6) Diverticulosis (7) Constipation FATUMA MORENO DO Jan 29, 2019 08:52
[2019-01-29] MEDS ORDERED: DULoxetine 30 MG (CYMBALTA) CAP PO SCH (09:00)
--- NOTE | 2019-01-29 09:09 | Consultation ---
History of Present Illness History of Present Illness Patient Consulted On(beltran/time) 01/29/19 09:09 Allergies and Home Medications Allergies Coded Allergies: amoxicillin (Verified Allergy, Intermediate, RASH AND LIP SWELLING, ) metronidazole (Verified Allergy, Intermediate, RASH AND BUMPS ON LEGS, ) Sulfa (Sulfonamide Antibiotics) (Unverified Allergy, Unknown, RASH, ) cephalexin (Unverified Allergy, Unknown, 12/21/10) clavulanic acid (Unverified Allergy, Unknown, 01/26/19) levofloxacin (Verified Allergy, Unknown, TENDON PAIN IN ANKLES, 01/27/19) Uncoded Allergies: STEROIDS (Allergy, Unknown, 12/21/10) Home Medications Duloxetine HCl 60 Mg Capsule.dr, 60 MG PO DAILY, (Reported) Famotidine 20 Mg Tablet, 20 MG PO DAILY PRN for INDIGESTION, (Reported) Furosemide 20 Mg Tablet, 20 MG PO DAILY, (Reported) Lisinopril 20 Mg Tablet, 20 MG PO BID, (Reported) Metoprolol Succinate 25 Mg Tab.er.24h, 25 MG PO BID, (Reported) Naproxen 500 Mg Tablet, 500 MG PO BID PRN for PAIN-MILD, (Reported) Past Zssfxek-Ylepmh-Egeatb Hx Past Med/Social Hx: Reviewed Nursing Past Med/Soc Hx, Reviewed and Corrections made Patient Social History Alcohol Use: Denies Use Recreational Drug Use: No Smoking Status: Current Everyday Smoker Type Used: Cigarettes 2nd Hand Smoke Exposure: Yes Recent Foreign Travel: No Contact w/Someone Who Travel: No Recent Hopitalizations: Yes (HIP SURGERY -) Immunizations Up To Date Date of Pneumonia Vaccine: Jun 18, 2018 Date of Influenza Vaccine: Jul 15, 2015 Seasonal Allergies Seasonal Allergies: No Past Medical History Surgeries: Yes (dxls x3, A&P repair x2, ovaries removed, bladder sling, ) Breast, Orthopedic Respiratory: No Currently Using CPAP: No Currently Using BIPAP: No Cardiac: Yes Hypertension Neurological: No Reproductive Disorders: No 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 History: Menopausal Genitourinary: Yes Bladder Infection Gastrointestinal: Yes (hx of polyps, hemorrhoids) Diverticulosis Musculoskeletal: Yes Degenerate Disk Disease, Fibromyalgia, Chronic Back Pain Endocrine: No HEENT: No Cancer: Yes (BREAST CANCER DX 2004 - LUMPECTOMY) Breast What Type of Treatment Did You: Surgical Intervention Psychosocial: Yes Anxiety Integumentary: Yes (SHINGLES ) Blood Disorders: No Family Medical History FH: bladder cancer 19 FATHER Kidney disease 19 FATHER Myocardial infarction 19 FATHER 19 MOTHER G8 BROTHER Physical Exam-General Problems Physical Exam Vital Signs Vital Signs - First Documented 01/28/19 11:00 Temp 97.1 Pulse 68 Resp 18 B/P (MAP) 133/81 (98) Pulse Ox 96 O2 Delivery Room Air Capillary Refill : Less Than 3 Seconds Clinical Quality Measures DVT/VTE Risk/Contraindication: Risk Factor Score Per Nursin RFS Level Per Nursing on Admit: 4+=Very High CHRISTEN FLORES MD Jan 29, 2019 09:09
--- NOTE | 2019-01-29 09:15 | NUR ---
NO BM X 3 DAYS AND MEDICATED WITH MOM. STATES FEELS PAIN IS UNDER CONTROL WITH LORTAB. ICE PACK HELPS RIGHT HIP.
[2019-01-29] MEDS: MILK OF MAGNESIA 400 MG/5 ML 30 ML UDC PO PRN (09:21)
--- NOTE | 2019-01-29 09:49 | Physical Therapy Daily Note ---
PT Daily Note-Current Subjective Pt sitting in recliner upon arrival. Pt agrees to PT. Pt reports wanting to D/ C by Sunday or Sunday at the latest (02/01-02/02). Pain Numeric Pain Scale: 5-Moderate Pain Location: Right Location Body Site: Hip Pain Description: Ache Mental Status Patient Orientation: Person, Place, Time, Situation Transfers Therapy Code Descriptions/Definitions Functional [place] Measure: 0=Not Assessed/NA 4=Minimal Assistance 1=Total Assistance 5=Supervision or Setup 2=Maximal Assistance 6=Modified [place] 3=Moderate Assistance 7=Complete [place] Therapy Quality Codes: 6 Independent with activity with or without an assistive device 5 Patient requires set up or clean up by helper. Patient completes activity by themselves 4 Supervision or touching assist (CGA). [place] provide cues , steadying assist 3 The helper provides less than half the effort to complete the activity 2 The helper provides more than half the effort to complete the activity 1 Dependent. The helper does all the effort to complete an activity 7 Patient refused to complete or attempt activity 9 The patient did not perform the activity before the current illness or injury 88 Not attempted due to Medical conditions or safety concerns Scootin Sit to/from Stand: 5 Sit to Stand (QC): 5 Weight Bearing Right Lower Extremity: Right Touch Toe Bearing Left Lower Extremity: Left Full Weight Bearing Gait Training Does the Patient Walk?: Yes Distance (FIM): 1=up to 49 ft (20', 20') Distance: 20', 20' Walk 10 feet (QC): 5 Gait Level of Assist: 5 Gait Persons Needed: 1 Gait Assistive Device: FWW Pt needs VC at times to keep WB status. Wheelchair Training Does the Pt Use a Wheelchair?: Yes Wheelchair Distance: 4=603-53 ft Distance: 100' Wheelchair Level of Assist: 5 Wheel 50 ft with 2 turns (QC): 5 Type of Wheelchair: Manual Exercises Seated Therapy Exercises: Ankle pumps, Long arc quads, Hip flexion, Kicking activity Seated Reps: 15 Standing: Hip Abduction, Heel/toe raises, Step-ups Standing Reps: 10 These are done on R side only due to WB status. Treatments Pt transfers from recliner to standing using FWW. Pt ambulates in hallway. Pt completes Seated Ex followed by Standing Ex in //bars. Pt returns to room at end of tx with all needs met. Assessment Current Status: Good Progress Pt limited by pain at this time but reports D/C Sunday at the latest. PT Short Term Goals Short Term Goals Time Frame: Feb 04, 2019 Transfers (B,C,W/C) (FIM): 5 Gait (FIM): 4 PT Shelter Goals Shelter Goals PT Sales Representative Meats Goals Time Frame: Feb 11, 2019 Transfers (B,C,W/C) (FIM): 7 Sit to Lying (QC): 6 Lying-Sitting on Side/Bed(QC): 6 Sit to Stand (QC): 6 Rollin Roll Left to Right (QC): 6 Chair/Xkl-iv-Zuqxr Xfer(QC): 6 Car Transfer (QC): 6 Does the Patient Walk: Yes Gait distance (FIM): 3=150 ft Distance: 200 Walk 10 feet (QC): 6 Walk 10ft-Uneven Surface(QC): 6 Walk 50ft with 2 Turns (QC): 6 Walk 150 ft (QC): 6 Gait Assistive Device: FWW Does the Pt use WC or Scooter?: No Stairs (FIM): 5 # of Steps: 4 1 Step (curb) (QC): 6 4 Steps (QC): 6 12 Steps (QC): 88 Picking up an Object (QC): 88 PT Plan Problem List Problem List: Activity Tolerance, Functional Strength, Safety, Balance, Gait, Transfer Treatment/Plan Treatment Plan: Continue Plan of Care Treatment Plan: Bed Mobility, Education, Functional Activity Martina, Functional Strength, Group Therapy, Gait, Safety, Therapeutic Exercise, Transfers Treatment Duration: Feb 11, 2019 Frequency: At least 5 of 7 days/Wk (IRF) Estimated Hrs Per Day: 1.5 hours per day Patient and/or Family Agrees t: Yes Safety Risks/Education Patient Education: Gait Training, Transfer Techniques, Correct Positioning, Safety Issues Teaching Recipient: Patient Teaching Methods: Discussion Response to Teaching: Verbalize Understanding Time/GCodes Time In: 815 Time Out: 915 Total Billed Treatment Time: 60 Total Billed Treatment 1, GT (15m), EX x2 (30m) & FA (15m) G Codes Necessary: No [employer] CONTR[employer]LLER Jan 29, 2019 09:49
--- NOTE | 2019-01-29 10:19 | Occupational Ther Daily Note ---
OT Current Status-Daily Note Subjective Pt alert, sitting in recliner. Pt agrees to therapy. Nrsg and physician in room. Pt c/o pain to physician and nrsg. Mental Status/Objective Patient Orientation: Person, Place, Time, Situation Therapy Code Descriptions/Definitions Functional [place] Measure: 0=Not Assessed/NA 4=Minimal Assistance 1=Total Assistance 5=Supervision or Setup 2=Maximal Assistance 6=Modified [place] 3=Moderate Assistance 7=Complete [place] ADL-Treatment Pt agrees to shower. Ambulated into bathroom and transferred to toilet, close SBA. Pt stood from toilet by self using BSC and FWW and completed own hygiene and clothing manipulation. Transferred into shower using FWW, grabbars and shower bench with close SBA. Completed bathing using grabbars, hand held shower and shower bench with SBA when standing to cleanse buttocks/sharon area. After set up, pt completed upper body dressing by self. Using AE, pt doffed socks and DE LA PAZ doffed/donned OSCAR hose. Pt able to don/doff pants/underpants by self, SBA to hike pants over hips. Pt stood at sink to complete grooming, SBA. After therapy, pt sitting in recliner with call light/phone in reach. All needs met in room. Therapy Code Descriptions/Definitions Functional [place] Measure: 0=Not Assessed/NA 4=Minimal Assistance 1=Total Assistance 5=Supervision or Setup 2=Maximal Assistance 6=Modified [place] 3=Moderate Assistance 7=Complete [place] Therapy Quality Codes: 6 Independent with activity with or without an assistive device 5 Patient requires set up or clean up by helper. Patient completes activity by themselves 4 Supervision or touching assist (CGA). [place] provide cues , steadying assist 3 The helper provides less than half the effort to complete the activity 2 The helper provides more than half the effort to complete the activity 1 Dependent. The helper does all the effort to complete an activity 7 Patient refused to complete or attempt activity 9 The patient did not perform the activity before the current illness or injury 88 Not attempted due to Medical conditions or safety concerns Grooming (FIM): 5 Oral Hygiene (QC): 4 Bathing (FIM): 5 Bathing Location: L Arm, R Arm, L Upper Leg, R Upper Leg, L Lower Leg ( including foot), R Lower Leg (including foot), Chest, Abdomen, Buttocks Shower/Bathe Self (QC): 4 Upper Body (FIM): 5 Upper Body Dressing (QC): 5 Lower Body Dressing (FIM): 5 Lower Body Dressing (QC): 4 On/Off Footwear (QC): 2 (Using AE to don socks and assist to don and tie shoes. ) Toileting (FIM): 5 Toileting Hygiene (QC): 4 Transfers (B, C, W/C) (FIM): 5 Toilet/Commode Transfer (FIM): 5 Toilet Transfer (QC): 4 Shower Transfer(FIM): 5 OT Short Term Goals Short Term Goals Transfers (B,C,W/C) (FIM): 5 1=Demonstrate adherence to instructed precautions during ADL tasks. 2=Patient will verbalize/demonstrate understanding of assistive devices/ modifications for ADL. 3=Patient will improve strength/tolerance for activity to enable patient to perform ADL's. OT Diamond Sizer And Grader Goals Alf Goals Time Frame: Feb 04, 2019 Eating (FIM): 6 Eating (QC): 6 Groomin Oral Hygiene (QC): 6 Bathing(FIM): 5 Shower/Bathe Self (QC): 5 Upper Body Dressing(FIM): 6 Upper Body Dressing (QC): 6 Lower Body Dressing(FIM): 6 Lower Body Dressing (QC): 6 On/Off Footwear (QC): 6 Toileting(FIM): 6 Toileting Hygiene (QC): 6 Transfers (B,C,W/C) (FIM): 6 Toilet/Commode Transfer(FIM): 6 Toilet/Commode Transfer (QC): 6 Shower Transfer(FIM): 5 Additional Goals: 1-Demonstrate ADL Tasks, 2-Verbalize Understanding, 3- ImproveStrength/Martina 1=Demonstrate adherence to instructed precautions during ADL tasks. 2=Patient will verbalize/demonstrate understanding of assistive devices/ modifications for ADL. 3=Patient will improve strength/tolerance for activity to enable patient to perform ADL's. OT Education/Plan Problem List/Assessment Assessment: Impaired Self-Care Skills Discharge Recommendations Plan/Recommendations: Continue POC Treatment Plan/Plan of Care Patient would benefit from OT for education, treatment and training to promote independence in ADL's, mobility, safety and/or upper extremity function for ADL' s. Plan of Care: ADL Retraining, Functional Mobility, UE Funct Exercise/Act Treatment Duration: Feb 04, 2019 Frequency: At least 5 of 7 days/Wk (IRF) Estimated Hrs Per Day: 1.5 hours per day Agreement: Yes Rehab Potential: Good Time/GCodes Start Time: 09:15 Stop Time: 10:15 Total Time Billed (hr/min): 60 Billed Treatment Time 1 visit-ADL 4 (60 min) STEPAN BARTHOLOMEW Jan 29, 2019 10:19
--- NOTE | 2019-01-29 10:30 | NUR ---
DR. FLORES HERE TO SEE PATIENT. WILL ADD LIDOCAINE PATCH TO PAIN REGIMEN AND ONE TIME POTASSIUM SUPPLEMENT FOR K 3.4.
[2019-01-29] MEDS ORDERED: KCL 20 MEQ TAB (K-DUR) PO NR (11:03)
[2019-01-29] MEDS ORDERED: KCL 20 MEQ TAB (K-DUR) PO ONE (11:15)
[2019-01-29] MEDS: LIDOCAINE 4% (SALONPAS) PATCH TOP SCH (11:18)
--- NOTE | 2019-01-29 14:16 | Occupational Ther Daily Note ---
OT Current Status-Daily Note Subjective Pt alert, sitting in recliner. present in room. Pt agrees to therapy. No c/o pain. Mental Status/Objective Patient Orientation: Person, Place, Time, Situation Therapy Code Descriptions/Definitions Functional [place] Measure: 0=Not Assessed/NA 4=Minimal Assistance 1=Total Assistance 5=Supervision or Setup 2=Maximal Assistance 6=Modified [place] 3=Moderate Assistance 7=Complete [place] ADL-Treatment Therapy Code Descriptions/Definitions Functional [place] Measure: 0=Not Assessed/NA 4=Minimal Assistance 1=Total Assistance 5=Supervision or Setup 2=Maximal Assistance 6=Modified [place] 3=Moderate Assistance 7=Complete [place] Therapy Quality Codes: 6 Independent with activity with or without an assistive device 5 Patient requires set up or clean up by helper. Patient completes activity by themselves 4 Supervision or touching assist (CGA). [place] provide cues , steadying assist 3 The helper provides less than half the effort to complete the activity 2 The helper provides more than half the effort to complete the activity 1 Dependent. The helper does all the effort to complete an activity 7 Patient refused to complete or attempt activity 9 The patient did not perform the activity before the current illness or injury 88 Not attempted due to Medical conditions or safety concerns Other Treatment Pt ambulated using FWW to therapy gym, SBA. 1 recovery break going to gym. Completed arm bike 15 min at 20 nance resistance to increase strength and activity tolerance for daily functional tasks. Pt given AE handout and discussed equipment that pt could use for bathroom safety. Pt stated that her mom had a lot of items though she though that they had sold them. DE LA PAZ attempted to problem solve with pt on situations that may occur at home and pt stated that her will be there and they will figure out what to do at home. DE LA PAZ encouraged pt to use ARU staffs knowledge for home safety. Pt accepted AE catalog, placed in room. PT took over care of pt in therapy gym. All needs met. OT Short Term Goals Short Term Goals Transfers (B,C,W/C) (FIM): 5 1=Demonstrate adherence to instructed precautions during ADL tasks. 2=Patient will verbalize/demonstrate understanding of assistive devices/ modifications for ADL. 3=Patient will improve strength/tolerance for activity to enable patient to perform ADL's. OT [employer] Goals Intermediate Goals Time Frame: Feb 04, 2019 Eating (FIM): 6 Eating (QC): 6 Groomin Oral Hygiene (QC): 6 Bathing(FIM): 5 Shower/Bathe Self (QC): 5 Upper Body Dressing(FIM): 6 Upper Body Dressing (QC): 6 Lower Body Dressing(FIM): 6 Lower Body Dressing (QC): 6 On/Off Footwear (QC): 6 Toileting(FIM): 6 Toileting Hygiene (QC): 6 Transfers (B,C,W/C) (FIM): 6 Toilet/Commode Transfer(FIM): 6 Toilet/Commode Transfer (QC): 6 Shower Transfer(FIM): 5 Additional Goals: 1-Demonstrate ADL Tasks, 2-Verbalize Understanding, 3- ImproveStrength/Martina 1=Demonstrate adherence to instructed precautions during ADL tasks. 2=Patient will verbalize/demonstrate understanding of assistive devices/ modifications for ADL. 3=Patient will improve strength/tolerance for activity to enable patient to perform ADL's. OT Education/Plan Problem List/Assessment Assessment: Decreased Activ Tolerance, Decreased UE Strength, Impaired Self- Care Skills Discharge Recommendations Plan/Recommendations: Continue POC Treatment Plan/Plan of Care Patient would benefit from OT for education, treatment and training to promote independence in ADL's, mobility, safety and/or upper extremity function for ADL' s. Plan of Care: ADL Retraining, Functional Mobility, UE Funct Exercise/Act Treatment Duration: Feb 04, 2019 Frequency: At least 5 of 7 days/Wk (IRF) Estimated Hrs Per Day: 1.5 hours per day Agreement: Yes Rehab Potential: Good Time/GCodes Start Time: 13:00 Stop Time: 13:30 Total Time Billed (hr/min): 30 Billed Treatment Time 1 visit-EX 1 (15 min) FA 1 (15 min) STEPAN BARTHOLOMEW Jan 29, 2019 14:16
--- NOTE | 2019-01-29 14:48 | Physical Therapy Daily Note ---
PT Daily Note-Current Subjective Pt sitting in Therapy Gym after just finishing with OT upon arrival. Pt agrees to PT. Pain Numeric Pain Scale: 5-Moderate Pain Location: Right Location Body Site: Hip Pain Description: Ache, Tightness Mental Status Patient Orientation: Person, Place, Time, Situation Transfers Therapy Code Descriptions/Definitions Functional [place] Measure: 0=Not Assessed/NA 4=Minimal Assistance 1=Total Assistance 5=Supervision or Setup 2=Maximal Assistance 6=Modified [place] 3=Moderate Assistance 7=Complete [place] Therapy Quality Codes: 6 Independent with activity with or without an assistive device 5 Patient requires set up or clean up by helper. Patient completes activity by themselves 4 Supervision or touching assist (CGA). [place] provide cues , steadying assist 3 The helper provides less than half the effort to complete the activity 2 The helper provides more than half the effort to complete the activity 1 Dependent. The helper does all the effort to complete an activity 7 Patient refused to complete or attempt activity 9 The patient did not perform the activity before the current illness or injury 88 Not attempted due to Medical conditions or safety concerns Scootin Supine to/from Sit: 4 Sit to/from Stand: 5 Sit to Lying (QC): 4 Sit to Stand (QC): 5 Weight Bearing Right Lower Extremity: Right Touch Toe Bearing Left Lower Extremity: Left Full Weight Bearing Gait Training Does the Patient Walk?: Yes Distance (FIM): 3=150 ft Distance: 150' Walk 10 feet (QC): 5 Walk 50 ft with 2 Turns(QC): 5 Walk 150 ft (QC): 5 Gait Level of Assist: 5 Gait Persons Needed: 1 Gait Assistive Device: FWW Pt is given VC to continue WB status. Pt reports feeling more pressure through UE while ambulating. Exercises Seated Therapy Exercises: Ankle pumps, Long arc quads, Hip flexion, Kicking activity Seated Reps: 15 NuStep Minutes: 4 NuStep Workload: 1 Treatments Pt attempts using NuStep for 4m at WL 1 but reports feeling uncomfortable so SHAPER OPERATOR discontinues. Pt then transfers to chair for short RB then Seated Ex. Pt ambulates back to room at end of tx. Pt transfers to Supine in bed with all needs met. Assessment Current Status: Good Progress Pt limited by pain at this time with activity. Pt reports wanting to go home by Sunday (02/02). PT Short Term Goals Short Term Goals Time Frame: Feb 04, 2019 Transfers (B,C,W/C) (FIM): 5 Gait (FIM): 4 Wheelchair Distance: 100' PT Chcf Goals Chcf Goals PT Atm Servicer Goals Time Frame: Feb 11, 2019 Transfers (B,C,W/C) (FIM): 7 Sit to Lying (QC): 6 Lying-Sitting on Side/Bed(QC): 6 Sit to Stand (QC): 6 Rollin Roll Left to Right (QC): 6 Chair/Bwv-tj-Vscvj Xfer(QC): 6 Car Transfer (QC): 6 Does the Patient Walk: Yes Gait distance (FIM): 3=150 ft Distance: 200 Walk 10 feet (QC): 6 Walk 10ft-Uneven Surface(QC): 6 Walk 50ft with 2 Turns (QC): 6 Walk 150 ft (QC): 6 Gait Assistive Device: FWW Does the Pt use WC or Scooter?: No Stairs (FIM): 5 # of Steps: 4 1 Step (curb) (QC): 6 4 Steps (QC): 6 12 Steps (QC): 88 Picking up an Object (QC): 88 PT Plan Problem List Problem List: Activity Tolerance, Functional Strength, Safety, Gait Treatment/Plan Treatment Plan: Continue Plan of Care Treatment Plan: Bed Mobility, Education, Functional Activity Martina, Functional Strength, Group Therapy, Gait, Safety, Therapeutic Exercise, Transfers Treatment Duration: Feb 11, 2019 Frequency: At least 5 of 7 days/Wk (IRF) Estimated Hrs Per Day: 1.5 hours per day Patient and/or Family Agrees t: Yes Safety Risks/Education Patient Education: Gait Training, Transfer Techniques, Correct Positioning, Safety Issues Teaching Recipient: Patient Teaching Methods: Discussion Response to Teaching: Verbalize Understanding Time/GCodes Time In: 1330 Time Out: 1400 Total Billed Treatment Time: 30 Total Billed Treatment 1, GT (10m) & EX (20m) G Codes Necessary: SCARLET Mayen SHAPER OPERATOR Jan 29, 2019 14:48
--- NOTE | 2019-01-29 17:01 | NUR ---
MS Erica met with patient to review team conference summary. Although patient just recently admitted yesterday, patient is eager to return home on Sunday, 02/02. At this time patient is performing transfers with min to mod assistance, ambulating short distances while maintaining toe-touch weightbearing status at CGA and completing ADLs with SBA without adaptive equipment. Team is in agreement with discharge on 02/02 as long as patient is able to complete 2 steps successfully and safely before returning home, as this will be required to safely enter the home. Patient is understanding and agreeable to plan. STUDENT FINANCIAL SERVICES COUNSELOR reviewed options of home health services versus outpatient therapy, patient prefers to utilize [facility] outpatient therapy for services. STUDENT FINANCIAL SERVICES COUNSELOR will continue to follow for additional needs.
[2019-01-29 18:00] VITALS: BP 113/73
--- NOTE | 2019-01-29 19:00 | NUR ---
NO BM YET TODAY. WILL REPEAT MOM IN AM.
[2019-01-29] MEDS: PATCH REMOVAL TP SCH (20:33)
[2019-01-29 21:00] VITALS: BP 126/76
[2019-01-30 05:04] VITALS: BP 130/73
[2019-01-30] MEDS: HYDROcodone/APAP 5 MG/325 MG (LORTAB) TAB PO PRN ×3 (07:15→18:53)
[2019-01-30 08:00] VITALS: BP 144/82
--- NOTE | 2019-01-30 08:00 | NUR ---
STATES FEELS IS IMPROVING. STILL HAVING HIP PAIN, BUT NOT REQUESTING PAIN MEDS OFTEN SHE CAN HAVE THEM. ENCOURAGED TO CALL FOR THEM MORE FREQUENTLY IF IN PAIN. FEELS BETTER SINCE THIS AM.
--- NOTE | 2019-01-30 08:51 | Physical Therapy Daily Note ---
PT Daily Note-Current Subjective Pt sitting up in recliner upon arrival. Pt agrees to PT and is excited to D/C on Sunday (02/02). Pain Numeric Pain Scale: 5-Moderate Pain Location: Right Location Body Site: Hip Pain Description: Ache, Tightness Transfers Therapy Code Descriptions/Definitions Functional [place] Measure: 0=Not Assessed/NA 4=Minimal Assistance 1=Total Assistance 5=Supervision or Setup 2=Maximal Assistance 6=Modified [place] 3=Moderate Assistance 7=Complete [place] Therapy Quality Codes: 6 Independent with activity with or without an assistive device 5 Patient requires set up or clean up by helper. Patient completes activity by themselves 4 Supervision or touching assist (CGA). [place] provide cues , steadying assist 3 The helper provides less than half the effort to complete the activity 2 The helper provides more than half the effort to complete the activity 1 Dependent. The helper does all the effort to complete an activity 7 Patient refused to complete or attempt activity 9 The patient did not perform the activity before the current illness or injury 88 Not attempted due to Medical conditions or safety concerns Scootin Supine to/from Sit: 5 Sit to/from Stand: 5 Sit to Lying (QC): 5 Sit to Stand (QC): 5 Pt uses Gait belt to assist with self lifting of RLE in & out of bed. Weight Bearing Right Lower Extremity: Right Touch Toe Bearing Left Lower Extremity: Left Full Weight Bearing Gait Training Does the Patient Walk?: Yes Distance (FIM): 3=150 ft Distance: 150' x2 Walk 10 feet (QC): 5 Walk 50 ft with 2 Turns(QC): 5 Walk 150 ft (QC): 5 Gait Level of Assist: 5 Gait Persons Needed: 1 Gait Assistive Device: FWW MANAGER ANALYSIS gives VC for reminder on WB status. Pt takes one short RB on way to Therapy Gym but none on way back after LE are loosened up/less tight. Wheelchair Training Does the Pt Use a Wheelchair?: No Exercises Supine Ex: Ankle pumps, Quad Set, Glut sets, Short Arc Quads, Hip abd/add Supine Reps: 10 Treatments Pt transfers from recliner to standing. Pt ambulates in hallway using FWW. Pt practices single step in //bars since pt has 3 steps to get into house. Pt then completes Supine Ex on Therapy mat. Pt ambulates back to room at end of tx with all needs met. Pt resting in recliner. Assessment Current Status: Good Progress Pt continues to show progress with improved strength and mobility. Pt is excited to be returning home. PT Short Term Goals Short Term Goals Time Frame: Feb 04, 2019 Transfers (B,C,W/C) (FIM): 5 Gait (FIM): 4 Wheelchair Distance: 100' PT Director Cloud Transformation Goals Fci Goals PT Fci Goals Time Frame: Feb 11, 2019 Transfers (B,C,W/C) (FIM): 7 Sit to Lying (QC): 6 Lying-Sitting on Side/Bed(QC): 6 Sit to Stand (QC): 6 Rollin Roll Left to Right (QC): 6 Chair/Cna-yk-Vjute Xfer(QC): 6 Car Transfer (QC): 6 Does the Patient Walk: Yes Gait distance (FIM): 3=150 ft Distance: 200 Walk 10 feet (QC): 6 Walk 10ft-Uneven Surface(QC): 6 Walk 50ft with 2 Turns (QC): 6 Walk 150 ft (QC): 6 Gait Assistive Device: FWW Does the Pt use WC or Scooter?: No Stairs (FIM): 5 # of Steps: 4 1 Step (curb) (QC): 6 4 Steps (QC): 6 12 Steps (QC): 88 Picking up an Object (QC): 88 PT Plan Problem List Problem List: Activity Tolerance, Gait, Transfer Treatment/Plan Treatment Plan: Continue Plan of Care Treatment Plan: Bed Mobility, Education, Functional Activity Martina, Functional Strength, Group Therapy, Gait, Safety, Therapeutic Exercise, Transfers Treatment Duration: Feb 11, 2019 Frequency: At least 5 of 7 days/Wk (IRF) Estimated Hrs Per Day: 1.5 hours per day Patient and/or Family Agrees t: Yes Safety Risks/Education Patient Education: Gait Training, Transfer Techniques, Issued Written HEP, Correct Positioning, Safety Issues Teaching Methods: Discussion Response to Teaching: Verbalize Understanding Time/GCodes Time In: 800 Time Out: 900 Total Billed Treatment Time: 60 Total Billed Treatment 1, GT (15m), EX x2 (30m) & FA (15m) G Codes Necessary: SCARLET Mayen MANAGER ANALYSIS Jan 30, 2019 08:51
--- NOTE | 2019-01-30 08:52 | PM&R Progress Note ---
Subjective HPI/CC On Admission Date Seen by Provider: Jan 30, 2019 Time Seen by Provider: 08:30 Chief Complaint: Right hip fracture HPI: This is a female pt of Dr. George who sustained a right hip fracture after a fall. At this current time pt is participating in therapy. We are in the midst of repeating x-ray to evaluate if toe touch could be lifted and weight bearing is tolerated in order to participate in all therapies as much as possible. She reports shes urinating well and has not had a BM since admission. Her BP is reviewed and it is very labile so need to watch that closely. Reviewed her home medications. Her pain is controlled. is at the bedside. 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 Her prior level of functioning was independent and her current level of functioning is 1 to 2 person assist. Barriers to returning home will include ability to ambulate and perform independent ADL's. Subjective/Events-last exam + BM now so meds were successful Pain is much improved but likely need to increase frequency due to pain with therapy Remains toe touch for six weeks total. Participating in all therapies. Denies chest pain or SOB. Using IS. Lidocaine patch was placed on incision site with good results by Dr. George. Reviewed therapy notes and meds Smoking cessation discussed Review of Systems General: Fatigue Musculoskeletal: leg pain Objective Exam Vital Signs Vital Signs Date Time Temp Pulse Resp B/P (MAP) Pulse Ox O2 Delivery O2 Flow Rate FiO2 01/30/19 09:00 Room Air 01/30/19 08:00 74 144/82 (102) 01/30/19 05:04 97.6 16 92 Capillary Refill : Less Than 3 Seconds General Appearance: No Apparent Distress, WD/WN, Chronically ill HEENT: PERRL/EOMI, Normal ENT Inspection, Pharynx Normal, Moist Mucous Membranes Neck: Full Range of Motion, Normal Inspection, Non Tender, Supple Respiratory: Chest Non Tender, Lungs Clear, Normal Breath Sounds, No Accessory Muscle Use, No Respiratory Distress Cardiovascular: Regular Rate, Rhythm, No Edema, No Gallop, No JVD, No Murmur Gastrointestinal: Normal Bowel Sounds, No Organomegaly, No Pulsatile Mass, Non Tender, Soft Back: Normal Inspection, No CVA Tenderness, No Vertebral Tenderness Extremity: Normal Capillary Refill, Normal Inspection, Normal Range of Motion ( except right leg), Non Tender, No Calf Tenderness, No Pedal Edema Neurologic/Psychiatric: Alert, Oriented x3, No Motor/Sensory Deficits ( decreased right leg ROM due to pain), Normal Mood/Affect Skin: Normal Color, Warm/Dry Lymphatic: No Adenopathy Results/Procedures Lab Patient resulted labs reviewed. FIM Transfers Therapy Code Descriptions/Definitions Functional [place] Measure: 0=Not Assessed/NA 4=Minimal Assistance 1=Total Assistance 5=Supervision or Setup 2=Maximal Assistance 6=Modified [place] 3=Moderate Assistance 7=Complete [place] Therapy Quality Codes: 6 Independent with activity with or without an assistive device 5 Patient requires set up or clean up by helper. Patient completes activity by themselves 4 Supervision or touching assist (CGA). [place] provide cues , steadying assist 3 The helper provides less than half the effort to complete the activity 2 The helper provides more than half the effort to complete the activity 1 Dependent. The helper does all the effort to complete an activity 7 Patient refused to complete or attempt activity 9 The patient did not perform the activity before the current illness or injury 88 Not attempted due to Medical conditions or safety concerns Gait Training Does the Patient Walk?: Yes Distance (FIM): 1=up to 49 ft Gait Assistive Device: FWW Wheelchair Training Does the Pt Use a Wheelchair?: No Mental Status/Objective Comprehension: 7 Expression: 7 Social Interaction: 7 Problem Solvin Memory: 7 ADL-Treatment Groomin Oral Hygiene (QC): 4 Bathin Bathing Location: L Arm, R Arm, L Upper Leg, R Upper Leg, L Lower Leg ( including foot), R Lower Leg (including foot), Chest, Abdomen, Buttocks Shower/Bathe Self (QC): 4 Upper Extremity Dressin Upper Body Dressing (QC): 5 Lower Extremity Dressin Lower Body Dressing (QC): 4 On/Off Footwear (QC): 2 (Using AE to don socks and assist to don and tie shoes. ) Toiletin Toileting Hygiene (QC): 4 Toilet/Commode Transfer: 5 Toilet Transfer (QC): 4 Shower: 5 Assessment/Plan Assessment and Plan Assess & Plan/Chief Complaint Assessment: s/p right hip fracture s/p repair Dr Rodríguez HTN Smoker h/o breast cancer h/o diverticulosis Post op constipation now resolved Plan: IRF Intensive therapies Toe touch x 6 weeks Home meds BM regimen to continue to now prevent recurrence constipation (1) Closed right hip fracture (2) Smoker (3) Hypertension (4) DVT prophylaxis (5) HX: breast cancer (6) Diverticulosis (7) Constipation FATUMA MORENO DO Jan 30, 2019 08:52
[2019-01-30] MEDS: DOCUSATE SODIUM 100 MG (COLACE) CAP PO SCH ×2 (09:00→20:44)
[2019-01-30] MEDS: FUROSEMIDE 20 MG (LASIX) TAB PO SCH (09:01)
[2019-01-30] MEDS: DULOXETINE 60 MG CAPSULE PO SCH (09:02)
[2019-01-30] MEDS: lisINopril 20 MG (PRINIVIL) TABLET PO SCH ×2 (09:02→20:44)
[2019-01-30] MEDS: ENOXAPARIN 40 MG/0.4 ML (LOVENOX) SYR SC SCH (09:05)
[2019-01-30] MEDS: LIDOCAINE 4% (SALONPAS) PATCH TOP SCH (10:27)
--- NOTE | 2019-01-30 13:00 | D/C HH Face to Face Order ---
D/C Face to Face Orders Instructions for Patient [facility], Patient Instructions/FollowUp: Dr George in 1 week Physician to follow Patient: Dr George Discharge Diet for Home: No Restrictions Patient Problems: Hip fracture Smoker Goals for Patient: Return to independent activities Patient Data-Allergies,Ht & Wt Patient Allergies: Coded Allergies: amoxicillin (Verified Allergy, Intermediate, RASH AND LIP SWELLING, ) metronidazole (Verified Allergy, Intermediate, RASH AND BUMPS ON LEGS, ) Sulfa (Sulfonamide Antibiotics) (Unverified Allergy, Unknown, RASH, ) cephalexin (Unverified Allergy, Unknown, 12/21/10) clavulanic acid (Unverified Allergy, Unknown, 01/26/19) levofloxacin (Verified Allergy, Unknown, TENDON PAIN IN ANKLES, 01/27/19) Uncoded Allergies: STEROIDS (Allergy, Unknown, 12/21/10) Height (Feet): 5 Height (Inches): 8.00 Weight (Pounds): 164 Weight (Ounces): 6.0 Home Health Need/Face to Face Date of Face to Face: Jan 30, 2019 Clinical Findings: Generalized weakness and fatigue, Instability, Muscle weakness, Pain with ambulation, Unsteady gait I have seen Pt [id number]: Yes Discharged To: Home Diagnosis/Conditions: Hip fracture Smoker Patient is Homebound due to: Gin fall risk due to instabilty, Muscle weakness , Non-weight bearing, Pain w/ambulation Homebound Status Due to the above stated illness, injury or surgical procedure (medical condition or diagnosis) and associated clinical findings, the patient is homebound because of his/her inability to leave home except with aid of a supportive device and/or person AND leaving the home requires a considerable and taxing effort or is medically contraindicated. Pt req the following assistanc: Walker Home Health Nursing Orders Home Health Services Order: Physical Therapy-Evaluate & Treat Certify Stmt I certify that this patient is under my care and that I, a nurse practitioner or a physician; a veterinary assistant working with me, had a face to face encounter that - meets the physician face to face encounter requirements with this patient as dated. FATUMA MORENO DO Jan 30, 2019 13:00
--- NOTE | 2019-01-30 13:19 | Occupational Ther Daily Note ---
OT Current Status-Daily Note Subjective No pain reported. Appearance Pt. up in chair. Agrees to shower. Mental Status/Objective Patient Orientation: Person, Place, Time, Situation Therapy Code Descriptions/Definitions Functional [place] Measure: 0=Not Assessed/NA 4=Minimal Assistance 1=Total Assistance 5=Supervision or Setup 2=Maximal Assistance 6=Modified [place] 3=Moderate Assistance 7=Complete [place] ADL-Treatment Therapy Code Descriptions/Definitions Functional [place] Measure: 0=Not Assessed/NA 4=Minimal Assistance 1=Total Assistance 5=Supervision or Setup 2=Maximal Assistance 6=Modified [place] 3=Moderate Assistance 7=Complete [place] Therapy Quality Codes: 6 Independent with activity with or without an assistive device 5 Patient requires set up or clean up by helper. Patient completes activity by themselves 4 Supervision or touching assist (CGA). [place] provide cues , steadying assist 3 The helper provides less than half the effort to complete the activity 2 The helper provides more than half the effort to complete the activity 1 Dependent. The helper does all the effort to complete an activity 7 Patient refused to complete or attempt activity 9 The patient did not perform the activity before the current illness or injury 88 Not attempted due to Medical conditions or safety concerns Grooming (FIM): 5 (SBA in stance at sink to brush her teeth and hair, and blow dry hair.) Oral Hygiene (QC): 4 Bathing (FIM): 5 (SBA to wash all parts in shower.) Shower/Bathe Self (QC): 4 Upper Body (FIM): 5 Upper Body Dressing (QC): 4 Lower Body Dressing (FIM): 5 (SBA using sock aide to don socks, and DS to doff socks.) Lower Body Dressing (QC): 4 On/Off Footwear (QC): 4 Toileting (FIM): 6 Toileting Hygiene (QC): 6 Transfers (B, C, W/C) (FIM): 5 (SBA to ambulate with walker to dining area. Pt. sat to rest, and then ambulated back to room.) Toilet/Commode Transfer (FIM): 6 Toilet Transfer (QC): 6 Shower Transfer(FIM): 5 Other Treatment Pt. educated on how to use her dressing stick to doff socks, and to dry feet with towel wrapped around it. Education OT Patient Education: Correct positioning, Modified ADL techniques, Progress toward Goal/Update tx plan, Purpose of tx/functional activities, Reviewed precautions, Rehab process, Transfer techniques, Use of adapted equipment Teaching Recipient: Patient Teaching Methods: Demonstration, Discussion Response to Teaching: Verbalize Understanding, Return Demonstration OT Short Term Goals Short Term Goals Transfers (B,C,W/C) (FIM): 5 1=Demonstrate adherence to instructed precautions during ADL tasks. 2=Patient will verbalize/demonstrate understanding of assistive devices/ modifications for ADL. 3=Patient will improve strength/tolerance for activity to enable patient to perform ADL's. OT Detention Goals Detention Goals Time Frame: Feb 04, 2019 Eating (FIM): 6 Eating (QC): 6 Groomin Oral Hygiene (QC): 6 Bathing(FIM): 5 Shower/Bathe Self (QC): 5 Upper Body Dressing(FIM): 6 Upper Body Dressing (QC): 6 Lower Body Dressing(FIM): 6 Lower Body Dressing (QC): 6 On/Off Footwear (QC): 6 Toileting(FIM): 6 Toileting Hygiene (QC): 6 Transfers (B,C,W/C) (FIM): 6 Toilet/Commode Transfer(FIM): 6 Toilet/Commode Transfer (QC): 6 Shower Transfer(FIM): 5 Additional Goals: 1-Demonstrate ADL Tasks, 2-Verbalize Understanding, 3- ImproveStrength/Martina 1=Demonstrate adherence to instructed precautions during ADL tasks. 2=Patient will verbalize/demonstrate understanding of assistive devices/ modifications for ADL. 3=Patient will improve strength/tolerance for activity to enable patient to perform ADL's. OT Education/Plan Problem List/Assessment Assessment: Decreased Activ Tolerance, Impaired I ADL's, Impaired Self-Care Skills Discharge Recommendations Plan/Recommendations: Continue POC Therapy D/C Recommendations: Home w/ Family Support, Occupational Therapy Home Care Equpiment Recommendations-D/C: Sock Aide, Dressing Stick Treatment Plan/Plan of Care Treatment,Training & Education: Yes Patient would benefit from OT for education, treatment and training to promote independence in ADL's, mobility, safety and/or upper extremity function for ADL' s. Plan of Care: ADL Retraining, Functional Mobility, UE Funct Exercise/Act Treatment Duration: Feb 04, 2019 Frequency: At least 5 of 7 days/Wk (IRF) Estimated Hrs Per Day: 1.5 hours per day Agreement: Yes Rehab Potential: Good Time/GCodes Start Time: 10:00 Stop Time: 11:00 Total Time Billed (hr/min): 60 Billed Treatment Time 1, ADL x 4 PALOMA MEJIA OT Jan 30, 2019 13:19
--- NOTE | 2019-01-30 13:30 | NUR ---
Assumed care of patient. Report rec'd from CRIS Joseph.
--- NOTE | 2019-01-30 15:12 | Therapy Group Daily Note ---
Therapy Daily Group Note Patient Education Topic Other List Below (ARU expectations and memory strategies) Exercises LE Seated Exercise, UE Exercise Session Ratio (pt:therapist): 4:1 Goal of Session: Education on ARU Expectations, Memory Strategies, UE/LE Strengthing, Safety with Transfers Goal Met for this Session: Yes Pt Benefit of Group: Contributions to Others, F/U Use of Strategies @Home, Increased Functional Safety, Increased Functional Strength, Improved Cognition, Recognition of Peers, Socialization Other/Notes Pt ambulated to OT/PT group in [facility] area. Group consisted of introductions (name, place living, first pet), socialization, ARU expectations/ description, UE/LE seated exercises and memory game. Pt able to introduce self appropriately then actively listened to peers. Pt acknowledged understanding of ARU by nodding head in affirmative. Pt able to complete UE/LE seated exercises without difficulty. Pt attempted to find matches during memory activity. Pt acknowledged understanding of memory strategies and gave own strategies as an example. All needs met in room. Start Time: 13:00 Stop Time: 14:10 Total Billed Treatment Time: 70 Total Billed Treatment 1, GRP SCARLET WHITAKER CARBONATOR Jan 30, 2019 15:12
--- NOTE | 2019-01-30 16:47 | NUR ---
[facility] sent referral to [facility] outpatient therapy for PT and OT.
[2019-01-30 18:26] VITALS: BP 119/74
[2019-01-30] MEDS: PATCH REMOVAL TP SCH (20:44)
[2019-01-31 03:17] VITALS: BP 162/76
[2019-01-31] MEDS: HYDROcodone/APAP 5 MG/325 MG (LORTAB) TAB PO PRN ×4 (03:18→20:23)
[2019-01-31] MEDS: LIDOCAINE 4% (SALONPAS) PATCH TOP SCH (08:44)
[2019-01-31] MEDS: ENOXAPARIN 40 MG/0.4 ML (LOVENOX) SYR SC SCH (08:44)
[2019-01-31] MEDS: DOCUSATE SODIUM 100 MG (COLACE) CAP PO SCH ×2 (08:45→20:23)
[2019-01-31] MEDS: FUROSEMIDE 20 MG (LASIX) TAB PO SCH (08:45)
[2019-01-31] MEDS: lisINopril 20 MG (PRINIVIL) TABLET PO SCH ×2 (08:45→20:25)
[2019-01-31] MEDS: DULOXETINE 60 MG CAPSULE PO SCH (10:32)
--- NOTE | 2019-01-31 10:35 | PM&R Progress Note ---
Subjective HPI/CC On Admission Date Seen by Provider: Jan 31, 2019 Time Seen by Provider: 09:45 Chief Complaint: Right hip fracture HPI: This is a female pt of Dr. George who sustained a right hip fracture after a fall. At this current time pt is participating in therapy. We are in the midst of repeating x-ray to evaluate if toe touch could be lifted and weight bearing is tolerated in order to participate in all therapies as much as possible. She reports shes urinating well and has not had a BM since admission. Her BP is reviewed and it is very labile so need to watch that closely. Reviewed her home medications. Her pain is controlled. is at the bedside. 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 Her prior level of functioning was independent and her current level of functioning is 1 to 2 person assist. Barriers to returning home will include ability to ambulate and perform independent ADL's. Subjective/Events-last exam Patient doing very well and participating in all therapies Planning for discharge on Sunday Pain is well-controlled on oral medications No more constipation issues Checked meds and labs Reviewed therapy notes Overall very optimistic to return back to independent activities at discharge to prior level of functioning Toe-touch remains for a total of 6 weeks for orthopedic surgery Maintained on Lovenox for DVT prophylaxis Review of Systems General: Fatigue Musculoskeletal: leg pain Objective Exam Vital Signs Vital Signs Date Time Temp Pulse Resp B/P (MAP) Pulse Ox O2 Delivery O2 Flow Rate FiO2 01/31/19 09:00 Room Air 01/31/19 03:17 97.7 65 16 162/76 (104) 95 Capillary Refill : Less Than 3 Seconds General Appearance: No Apparent Distress, WD/WN, Chronically ill HEENT: PERRL/EOMI, Normal ENT Inspection, Pharynx Normal, Moist Mucous Membranes Neck: Full Range of Motion, Normal Inspection, Non Tender, Supple Respiratory: Chest Non Tender, Lungs Clear, Normal Breath Sounds, No Accessory Muscle Use, No Respiratory Distress Cardiovascular: Regular Rate, Rhythm, No Edema, No Gallop, No JVD, No Murmur Gastrointestinal: Normal Bowel Sounds, No Organomegaly, No Pulsatile Mass, Non Tender, Soft Back: Normal Inspection, No CVA Tenderness, No Vertebral Tenderness Extremity: Normal Capillary Refill, Normal Inspection, Normal Range of Motion ( except right leg), Non Tender, No Calf Tenderness, No Pedal Edema Neurologic/Psychiatric: Alert, Oriented x3, No Motor/Sensory Deficits ( decreased right leg ROM due to pain), Normal Mood/Affect Skin: Normal Color, Warm/Dry Lymphatic: No Adenopathy Results/Procedures Lab Patient resulted labs reviewed. FIM Transfers Therapy Code Descriptions/Definitions Functional [place] Measure: 0=Not Assessed/NA 4=Minimal Assistance 1=Total Assistance 5=Supervision or Setup 2=Maximal Assistance 6=Modified [place] 3=Moderate Assistance 7=Complete [place] Therapy Quality Codes: 6 Independent with activity with or without an assistive device 5 Patient requires set up or clean up by helper. Patient completes activity by themselves 4 Supervision or touching assist (CGA). [place] provide cues , steadying assist 3 The helper provides less than half the effort to complete the activity 2 The helper provides more than half the effort to complete the activity 1 Dependent. The helper does all the effort to complete an activity 7 Patient refused to complete or attempt activity 9 The patient did not perform the activity before the current illness or injury 88 Not attempted due to Medical conditions or safety concerns Gait Training Does the Patient Walk?: Yes Distance (FIM): 1=up to 49 ft (Toe-touch) Wheelchair Training Does the Pt Use a Wheelchair?: No Mental Status/Objective Comprehension: 7 Expression: 7 Social Interaction: 7 Problem Solvin Memory: 7 ADL-Treatment Groomin (SBA in stance at sink to brush her teeth and hair, and blow dry hair.) Oral Hygiene (QC): 4 Bathin (SBA to wash all parts in shower.) Bathing Location: L Arm, R Arm, L Upper Leg, R Upper Leg, L Lower Leg ( including foot), R Lower Leg (including foot), Chest, Abdomen, Buttocks Shower/Bathe Self (QC): 4 Upper Extremity Dressin Upper Body Dressing (QC): 4 Lower Extremity Dressin (SBA using sock aide to don socks, and DS to doff socks.) Lower Body Dressing (QC): 4 On/Off Footwear (QC): 4 Toiletin Toileting Hygiene (QC): 6 Toilet/Commode Transfer: 6 Toilet Transfer (QC): 6 Shower: 5 Assessment/Plan Assessment and Plan Assess & Plan/Chief Complaint Assessment: s/p right hip fracture s/p repair Dr Rodríguez HTN Smoker h/o breast cancer h/o diverticulosis Post op constipation now resolved Plan: IRF Intensive therapies Toe touch x 6 weeks Home meds BM regimen to continue to now prevent recurrence constipation Fainting DVT prophylaxis Discharge plan for Sunday (1) Closed right hip fracture (2) Smoker (3) Hypertension (4) DVT prophylaxis (5) HX: breast cancer (6) Diverticulosis (7) Constipation Assessment & Plan: Resolved FATUMA MORENO DO Jan 31, 2019 10:35
--- NOTE | 2019-01-31 11:28 | Physical Therapy Daily Note ---
PT Daily Note-Current Subjective Pt sitting in chair in Therapy Gym upon arrival. Pt agrees to PT. Mental Status Patient Orientation: Person, Place, Time, Situation Transfers Therapy Code Descriptions/Definitions Functional [place] Measure: 0=Not Assessed/NA 4=Minimal Assistance 1=Total Assistance 5=Supervision or Setup 2=Maximal Assistance 6=Modified [place] 3=Moderate Assistance 7=Complete [place] Therapy Quality Codes: 6 Independent with activity with or without an assistive device 5 Patient requires set up or clean up by helper. Patient completes activity by themselves 4 Supervision or touching assist (CGA). [place] provide cues , steadying assist 3 The helper provides less than half the effort to complete the activity 2 The helper provides more than half the effort to complete the activity 1 Dependent. The helper does all the effort to complete an activity 7 Patient refused to complete or attempt activity 9 The patient did not perform the activity before the current illness or injury 88 Not attempted due to Medical conditions or safety concerns Transfers (B, C, W/C) (FIM): 6 Scootin Rollin Roll Left to Right (QC): 6 Supine to/from Sit: 6 Sit to/from Stand: 6 Sit to Lying (QC): 6 Sit to Stand (QC): 6 Chair/[id number]-Rnlxb Xfer(QC): 6 Bed to/from Chair: 6 Car Transfer (QC): 6 Pt. shows knowledge in her hip precautions and WBS. Pt. is able to do tasks on her own but may take longer time. Weight Bearing Right Lower Extremity: Right Touch Toe Bearing Left Lower Extremity: Left Full Weight Bearing Gait Training Does the Patient Walk?: Yes Gait (FIM): 6 Distance (FIM): 3=150 ft Distance: 150' Walk 10 feet (QC): 6 Walk 50 ft with 2 Turns(QC): 6 Walk 150 ft (QC): 6 Walking 10ft/uneven surface-QC: 6 Gait Level of Assist: 6 Gait Persons Needed: 1 Gait Assistive Device: FWW Pt. is well aware of WBS. Pt. B UE do fatigue if pt ambulates long distance. Wheelchair Training Does the Pt Use a Wheelchair?: No Stair Training Stair Training: Handrails/: 2 handrails Stairs (FIM): 3 #of Steps: 4 1 Step (curb) (QC): 3 4 Steps (QC): 3 Stairs: Pattern: Hops Level of Assist: 5 Pt. is knowledgeable on which leg to ascend and descend the stairs with. Pt. is also aware of WBS. Pt. has 3 steps at home and is able to complete 4 steps a seated RB and then 4 more steps in therapy gym. Balance Picking up an Object (QC): 88 Special Test Comments Due to hip precautions pt is not able to perform. Exercises Supine Ex: Ankle pumps, Quad Set, Glut sets, Heel Slides, Short Arc Quads, Straight leg raise, Hip abd/add Supine Reps: 10 Treatments Pt. transferred from chair and ambulated to mat in gym. Pt. transferred to mat and completed supine exercises. Pt. then completed 4 steps with a RB followed by 4 more steps. Pt. walked across uneven surface and then ambulated in hallway. Pt. completed car transfer and then ambulated back to room. Pt. was left sitting up in chair with call light and all needs met. Assessment Current Status: Good Progress Pt. tolerated treatment well. Pt. seems very eager to get home. PT Short Term Goals Short Term Goals Time Frame: Feb 04, 2019 Transfers (B,C,W/C) (FIM): 5 Gait (FIM): 4 Wheelchair Distance: 100' PT Siding Installer Goals Mcc Goals PT Siding Installer Goals Time Frame: Feb 11, 2019 Transfers (B,C,W/C) (FIM): 7 Sit to Lying (QC): 6 Lying-Sitting on Side/Bed(QC): 6 Sit to Stand (QC): 6 Rollin Roll Left to Right (QC): 6 Chair/Sfz-de-Ezcde Xfer(QC): 6 Car Transfer (QC): 6 Does the Patient Walk: Yes Gait distance (FIM): 3=150 ft Distance: 200 Walk 10 feet (QC): 6 Walk 10ft-Uneven Surface(QC): 6 Walk 50ft with 2 Turns (QC): 6 Walk 150 ft (QC): 6 Gait Assistive Device: FWW Does the Pt use WC or Scooter?: No Stairs (FIM): 5 # of Steps: 4 1 Step (curb) (QC): 6 4 Steps (QC): 6 12 Steps (QC): 88 Picking up an Object (QC): 88 PT Plan Problem List Problem List: Activity Tolerance Treatment/Plan Treatment Plan: Continue Plan of Care Treatment Plan: Bed Mobility, Education, Functional Activity Martina, Functional Strength, Group Therapy, Gait, Safety, Therapeutic Exercise, Transfers Treatment Duration: Feb 11, 2019 Frequency: At least 5 of 7 days/Wk (IRF) Estimated Hrs Per Day: 1.5 hours per day Patient and/or Family Agrees t: Yes Safety Risks/Education Patient Education: Gait Training, Transfer Techniques, Correct Positioning, Safety Issues Teaching Recipient: Patient Teaching Methods: Discussion Response to Teaching: Verbalize Understanding Time/GCodes Time In: 900 Time Out: 1030 Total Billed Treatment Time: 90 Total Billed Treatment 1, GT (15m), EX x2 (35m) & FA x3 (40m) G Codes Necessary: SCARLET Mayen BIT GRINDER Jan 31, 2019 11:28
--- NOTE | 2019-01-31 11:46 | Occupational Ther Daily Note ---
OT Current Status-Daily Note Subjective Pt alert, sitting in recliner. Pt agrees to therapy. No c/o pain. Mental Status/Objective Patient Orientation: Person, Place, Time, Situation Therapy Code Descriptions/Definitions Functional [place] Measure: 0=Not Assessed/NA 4=Minimal Assistance 1=Total Assistance 5=Supervision or Setup 2=Maximal Assistance 6=Modified [place] 3=Moderate Assistance 7=Complete [place] ADL-Treatment Pt agrees to shower. After therapy, pt sitting in recliner with call light/ phone in reach. All needs met in room. Therapy Code Descriptions/Definitions Functional [place] Measure: 0=Not Assessed/NA 4=Minimal Assistance 1=Total Assistance 5=Supervision or Setup 2=Maximal Assistance 6=Modified [place] 3=Moderate Assistance 7=Complete [place] Therapy Quality Codes: 6 Independent with activity with or without an assistive device 5 Patient requires set up or clean up by helper. Patient completes activity by themselves 4 Supervision or touching assist (CGA). [place] provide cues , steadying assist 3 The helper provides less than half the effort to complete the activity 2 The helper provides more than half the effort to complete the activity 1 Dependent. The helper does all the effort to complete an activity 7 Patient refused to complete or attempt activity 9 The patient did not perform the activity before the current illness or injury 88 Not attempted due to Medical conditions or safety concerns Eating (FIM): 7 (Pt has demonstrated ability to complete own set up and uses regular utensils to eat.) Eating (QC): 6 Grooming (FIM): 7 (Standing at sink, pt able to complete by self.) Oral Hygiene (QC): 6 Bathing (FIM): 6 (Using shower bench, grabbars and hand held shower pt able to complete by self.) Bathing Location: L Arm, R Arm, L Upper Leg, R Upper Leg, L Lower Leg ( including foot), R Lower Leg (including foot), Chest, Abdomen, Buttocks, Perineal Area Shower/Bathe Self (QC): 6 Upper Body (FIM): 6 (Pt able to retrieve clothing using FWW and dresses upper body by self.) Upper Body Dressing (QC): 6 Lower Body Dressing (FIM): 6 (Retrieves clothing with FWW and is able to dress using AE when needed.) Lower Body Dressing (QC): 6 On/Off Footwear (QC): 6 Toileting (FIM): 6 (Using BSC, grabbars and FWW pt able to complete by self.) Toileting Hygiene (QC): 6 Transfers (B, C, W/C) (FIM): 6 (Using FWW to transfer from surface to surface.) Toilet/Commode Transfer (FIM): 6 (Using BSC, grabbars and FWW to complete transfer.) Toilet Transfer (QC): 6 Shower Transfer(FIM): 6 (Using FWW, grabbars and shower bench.) OT Short Term Goals Short Term Goals Transfers (B,C,W/C) (FIM): 5 1=Demonstrate adherence to instructed precautions during ADL tasks. 2=Patient will verbalize/demonstrate understanding of assistive devices/ modifications for ADL. 3=Patient will improve strength/tolerance for activity to enable patient to perform ADL's. OT Staff Research Associate Goals Longterm Goals Time Frame: Feb 04, 2019 Eating (FIM): 6 (-01/31/19) Eating (QC): 6 (01/31/19) Groomin (01/31/19) Oral Hygiene (QC): 6 (01/31/19) Bathing(FIM): 5 (-01/31/19) Shower/Bathe Self (QC): 5 (01/31/19) Upper Body Dressing(FIM): 6 (met-01/31/19) Upper Body Dressing (QC): 6 (-01/31/19) Lower Body Dressing(FIM): 6 (-01/31/19) Lower Body Dressing (QC): 6 (-01/31/19) On/Off Footwear (QC): 6 (-01/31/19) Toileting(FIM): 6 (met-01/31/19) Toileting Hygiene (QC): 6 (met-01/31/19) Transfers (B,C,W/C) (FIM): 6 (met-01/31/19) Toilet/Commode Transfer(FIM): 6 (met-01/31/19) Toilet/Commode Transfer (QC): 6 (met-01/31/19) Shower Transfer(FIM): 5 (met-01/31/19) Additional Goals: 1-Demonstrate ADL Tasks, 2-Verbalize Understanding, 3- ImproveStrength/Martina 1=Demonstrate adherence to instructed precautions during ADL tasks. 2=Patient will verbalize/demonstrate understanding of assistive devices/ modifications for ADL. 3=Patient will improve strength/tolerance for activity to enable patient to perform ADL's. OT Education/Plan Problem List/Assessment Assessment: Impaired Self-Care Skills Discharge Recommendations Plan/Recommendations: Continue POC Therapy D/C Recommendations: Home w/ Family Support, Home Independently Treatment Plan/Plan of Care Patient would benefit from OT for education, treatment and training to promote independence in ADL's, mobility, safety and/or upper extremity function for ADL' s. Plan of Care: ADL Retraining, Functional Mobility, UE Funct Exercise/Act Treatment Duration: Feb 04, 2019 Frequency: At least 5 of 7 days/Wk (IRF) Estimated Hrs Per Day: 1.5 hours per day Agreement: Yes Rehab Potential: Good Time/GCodes Start Time: 11:30 Stop Time: 12:30 Total Time Billed (hr/min): 60 Billed Treatment Time 1 visit-ADL 4 (60 min) STEPAN BARTHOLOMEW Jan 31, 2019 11:45
--- NOTE | 2019-01-31 13:17 | Occupational Ther Daily Note ---
OT Current Status-Daily Note Subjective Pt alert, sitting in recliner. in room. Pt agrees to therapy. Mental Status/Objective Patient Orientation: Person, Place, Time, Situation Therapy Code Descriptions/Definitions Functional [place] Measure: 0=Not Assessed/NA 4=Minimal Assistance 1=Total Assistance 5=Supervision or Setup 2=Maximal Assistance 6=Modified [place] 3=Moderate Assistance 7=Complete [place] ADL-Treatment Therapy Code Descriptions/Definitions Functional [place] Measure: 0=Not Assessed/NA 4=Minimal Assistance 1=Total Assistance 5=Supervision or Setup 2=Maximal Assistance 6=Modified [place] 3=Moderate Assistance 7=Complete [place] Therapy Quality Codes: 6 Independent with activity with or without an assistive device 5 Patient requires set up or clean up by helper. Patient completes activity by themselves 4 Supervision or touching assist (CGA). [place] provide cues , steadying assist 3 The helper provides less than half the effort to complete the activity 2 The helper provides more than half the effort to complete the activity 1 Dependent. The helper does all the effort to complete an activity 7 Patient refused to complete or attempt activity 9 The patient did not perform the activity before the current illness or injury 88 Not attempted due to Medical conditions or safety concerns Other Treatment Pt ambulated to therapy gym to complete UE exercises to increase strength and activity tolerance for daily functional tasks. Using 2# wts pt able to complete 3 UE exercises, 3 set 10 reps. Then completed arm bike for 8 min at 20 nanec resistance. PT took over care of pt. All needs met. OT Short Term Goals Short Term Goals Transfers (B,C,W/C) (FIM): 5 1=Demonstrate adherence to instructed precautions during ADL tasks. 2=Patient will verbalize/demonstrate understanding of assistive devices/ modifications for ADL. 3=Patient will improve strength/tolerance for activity to enable patient to perform ADL's. OT Campus Recruiting Intern Goals Campus Recruiting Intern Goals Time Frame: Feb 04, 2019 Eating (FIM): 6 (met-01/31/19) Eating (QC): 6 (met-01/31/19) Groomin (met-01/31/19) Oral Hygiene (QC): 6 (met-01/31/19) Bathing(FIM): 5 (met-01/31/19) Shower/Bathe Self (QC): 5 (met-01/31/19) Upper Body Dressing(FIM): 6 (met-01/31/19) Upper Body Dressing (QC): 6 (met-01/31/19) Lower Body Dressing(FIM): 6 (met-01/31/19) Lower Body Dressing (QC): 6 (met-01/31/19) On/Off Footwear (QC): 6 (met-01/31/19) Toileting(FIM): 6 (met-01/31/19) Toileting Hygiene (QC): 6 (met-01/31/19) Transfers (B,C,W/C) (FIM): 6 (met-01/31/19) Toilet/Commode Transfer(FIM): 6 (met-01/31/19) Toilet/Commode Transfer (QC): 6 (met-01/31/19) Shower Transfer(FIM): 5 (met-01/31/19) Additional Goals: 1-Demonstrate ADL Tasks, 2-Verbalize Understanding, 3- ImproveStrength/Martina 1=Demonstrate adherence to instructed precautions during ADL tasks. 2=Patient will verbalize/demonstrate understanding of assistive devices/ modifications for ADL. 3=Patient will improve strength/tolerance for activity to enable patient to perform ADL's. OT Education/Plan Problem List/Assessment Assessment: Decreased UE Strength, Impaired I ADL's Discharge Recommendations Plan/Recommendations: Continue POC Treatment Plan/Plan of Care Patient would benefit from OT for education, treatment and training to promote independence in ADL's, mobility, safety and/or upper extremity function for ADL' s. Plan of Care: ADL Retraining, Functional Mobility, UE Funct Exercise/Act Treatment Duration: Feb 04, 2019 Frequency: At least 5 of 7 days/Wk (IRF) Estimated Hrs Per Day: 1.5 hours per day Agreement: Yes Rehab Potential: Good Time/GCodes Start Time: 08:30 Stop Time: 09:00 Total Time Billed (hr/min): 30 Billed Treatment Time 1 visit-EX 2 (30 min) STEPAN BARTHOLOMEW Jan 31, 2019 13:17
[2019-01-31] MEDS ORDERED: DOCU100C37 PO (16:00)
[2019-01-31] MEDS ORDERED: ACHD5005 PO (16:00)
--- NOTE | 2019-01-31 16:05 | NUR ---
STRATEGIC CLIENT EXECUTIVE reviewed IMM and Patient Choice Letter with patient for anticipated discharge on Sunday. Patient is eager to return home and has not questions or concerns. Please see discharge summary for further information.
[2019-01-31 16:06] VITALS: BP 122/75
[2019-01-31] MEDS ORDERED: ASPI325T32 PO (16:07)
[2019-01-31] MEDS: PATCH REMOVAL TP SCH (20:34)
[2019-02-01] MEDS: HYDROcodone/APAP 5 MG/325 MG (LORTAB) TAB PO PRN ×3 (01:19→16:18)
[2019-02-01 06:26] VITALS: BP 149/77
--- NOTE | 2019-02-01 07:54 | Physical Therapy Daily Note ---
PT Daily Note-Current Subjective Pt up in chair, agreeable to therapy. Does not provide pain rating, states (R) hip is "stiff". Anxious to discharge home. Wanting to practice stairs again today. Mental Status Patient Orientation: Person, Place, Time, Situation Transfers Therapy Code Descriptions/Definitions Functional [place] Measure: 0=Not Assessed/NA 4=Minimal Assistance 1=Total Assistance 5=Supervision or Setup 2=Maximal Assistance 6=Modified [place] 3=Moderate Assistance 7=Complete [place] Therapy Quality Codes: 6 Independent with activity with or without an assistive device 5 Patient requires set up or clean up by helper. Patient completes activity by themselves 4 Supervision or touching assist (CGA). [place] provide cues , steadying assist 3 The helper provides less than half the effort to complete the activity 2 The helper provides more than half the effort to complete the activity 1 Dependent. The helper does all the effort to complete an activity 7 Patient refused to complete or attempt activity 9 The patient did not perform the activity before the current illness or injury 88 Not attempted due to Medical conditions or safety concerns Sit to/from Stand: 6 Sit to Stand (QC): 6 Weight Bearing Right Lower Extremity: Right Touch Toe Bearing Left Lower Extremity: Left Full Weight Bearing Gait Training Does the Patient Walk?: Yes Gait (FIM): 6 Distance (FIM): 3=150 ft Distance: 150 Walk 10 feet (QC): 6 Walk 50 ft with 2 Turns(QC): 6 Walk 150 ft (QC): 6 Gait Level of Assist: 6 Gait Assistive Device: FWW Pt ambulated with slow, safe gait. No LOB. Stair Training Stair Training: Handrails/: 2 handrails Stairs (FIM): 2 #of Steps: 4 4 Steps (QC): 4 Level of Assist: 4 CGA, VCS for sequencing. Assessment Current Status: Good Progress Pt progressing well with functional mobility. PT Short Term Goals Short Term Goals Time Frame: Feb 04, 2019 Transfers (B,C,W/C) (FIM): 5 Gait (FIM): 4 Wheelchair Distance: 100' PT Employment Officer Goals Penitentiary Goals PT Employment Officer Goals Time Frame: Feb 11, 2019 Transfers (B,C,W/C) (FIM): 7 Sit to Lying (QC): 6 Lying-Sitting on Side/Bed(QC): 6 Sit to Stand (QC): 6 Rollin Roll Left to Right (QC): 6 Chair/Cez-jw-Ienhc Xfer(QC): 6 Car Transfer (QC): 6 Does the Patient Walk: Yes Gait distance (FIM): 3=150 ft Distance: 200 Walk 10 feet (QC): 6 Walk 10ft-Uneven Surface(QC): 6 Walk 50ft with 2 Turns (QC): 6 Walk 150 ft (QC): 6 Gait Assistive Device: FWW Does the Pt use WC or Scooter?: No Stairs (FIM): 5 # of Steps: 4 1 Step (curb) (QC): 6 4 Steps (QC): 6 12 Steps (QC): 88 Picking up an Object (QC): 88 PT Plan Problem List Problem List: Activity Tolerance, Functional Strength, Safety, Balance, Gait, Transfer Treatment/Plan Treatment Plan: Continue Plan of Care Treatment Plan: Bed Mobility, Education, Functional Activity Martina, Functional Strength, Group Therapy, Gait, Safety, Therapeutic Exercise, Transfers Treatment Duration: Feb 11, 2019 Frequency: At least 5 of 7 days/Wk (IRF) Estimated Hrs Per Day: 1.5 hours per day Patient and/or Family Agrees t: Yes Safety Risks/Education Patient Education: Gait Training Teaching Recipient: Patient Teaching Methods: Discussion Response to Teaching: Return Demonstration Sequencing on stairs Discharge Recommendations Therapy D/C Recommendations: Home w/ Family Support, Physical Therapy Home Care Time/GCodes Time In: 721 Time Out: 747 Total Billed Treatment Time: 26 Total Billed Treatment 1, GT x 26' G Codes Necessary: SHLOMO Dasilva DPT Feb 01, 2019 07:54
[2019-02-01 08:00] VITALS: BP 118/64
[2019-02-01] MEDS: ENOXAPARIN 40 MG/0.4 ML (LOVENOX) SYR SC SCH (08:08)
[2019-02-01] MEDS: DOCUSATE SODIUM 100 MG (COLACE) CAP PO SCH ×2 (08:09→20:02)
[2019-02-01] MEDS: lisINopril 20 MG (PRINIVIL) TABLET PO SCH ×2 (08:10→20:02)
[2019-02-01] MEDS: DULOXETINE 60 MG CAPSULE PO SCH (08:11)
[2019-02-01] MEDS: FUROSEMIDE 20 MG (LASIX) TAB PO SCH (08:11)
[2019-02-01] MEDS: LIDOCAINE 4% (SALONPAS) PATCH TOP SCH (08:12)
--- NOTE | 2019-02-01 09:00 | NUR ---
REFUSES LIDODERM PATCH - DOESN'T FEEL LIKE IT HELPS. NO BM X 2 DAYS AND MEDICATED WITH MOM.
[2019-02-01] MEDS: MILK OF MAGNESIA 400 MG/5 ML 30 ML UDC PO PRN (10:08)
--- NOTE | 2019-02-01 11:30 | NUR ---
DR. MORENO INFORMED OF INCREASED SWELLING IN RIGHT LEG. WAS EDEMATOUS FROM RIGHT HIP TO KNEE. NOW 1-2+ DOWN TO FOOT. HAVE ENCOURAGED PATIENT TO KEEP LEGS ELEVATED AND THIGH HIGH OSCAR HOSE PUT ON.
--- NOTE | 2019-02-01 11:48 | PM&R Progress Note ---
Subjective HPI/CC On Admission Date Seen by Provider: Feb 01, 2019 Time Seen by Provider: 11:00 Chief Complaint: Right hip fracture HPI: This is a female pt of Dr. George who sustained a right hip fracture after a fall. At this current time pt is participating in therapy. We are in the midst of repeating x-ray to evaluate if toe touch could be lifted and weight bearing is tolerated in order to participate in all therapies as much as possible. She reports shes urinating well and has not had a BM since admission. Her BP is reviewed and it is very labile so need to watch that closely. Reviewed her home medications. Her pain is controlled. is at the bedside. 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 Her prior level of functioning was independent and her current level of functioning is 1 to 2 person assist. Barriers to returning home will include ability to ambulate and perform independent ADL's. Subjective/Events-last exam Patient doing very well and participating in all therapies Planning for discharge tomorrow Sunday Pain is well-controlled on oral medications and Rx given to her to fill today prior to DC on a holiday No more constipation issues Checked meds and labs Reviewed therapy notes Overall very optimistic to return back to independent activities at discharge to prior level of functioning Toe-touch remains for a total of 6 weeks for orthopedic surgery Maintained on Lovenox for DVT prophylaxis while inpatient and then ASA 325mg PO BID for 2 weeks thereafter once she is DC home Review of Systems Musculoskeletal: leg pain Objective Exam Vital Signs Vital Signs Date Time Temp Pulse Resp B/P (MAP) Pulse Ox O2 Delivery O2 Flow Rate FiO2 02/01/19 09:00 Room Air 02/01/19 06:26 97.3 64 16 149/77 (101) 94 Capillary Refill : Less Than 3 Seconds General Appearance: No Apparent Distress, WD/WN, Chronically ill HEENT: PERRL/EOMI, Normal ENT Inspection, Pharynx Normal, Moist Mucous Membranes Neck: Full Range of Motion, Normal Inspection, Non Tender, Supple Respiratory: Chest Non Tender, Lungs Clear, Normal Breath Sounds, No Accessory Muscle Use, No Respiratory Distress Cardiovascular: Regular Rate, Rhythm, No Edema, No Gallop, No JVD, No Murmur Gastrointestinal: Normal Bowel Sounds, No Organomegaly, No Pulsatile Mass, Non Tender, Soft Back: Normal Inspection, No CVA Tenderness, No Vertebral Tenderness Extremity: Normal Capillary Refill, Normal Inspection, Normal Range of Motion ( except right leg), Non Tender, No Calf Tenderness, No Pedal Edema Neurologic/Psychiatric: Alert, Oriented x3, No Motor/Sensory Deficits ( decreased right leg ROM due to pain), Normal Mood/Affect Skin: Normal Color, Warm/Dry Lymphatic: No Adenopathy Results/Procedures Lab Patient resulted labs reviewed. FIM Transfers Therapy Code Descriptions/Definitions Functional [place] Measure: 0=Not Assessed/NA 4=Minimal Assistance 1=Total Assistance 5=Supervision or Setup 2=Maximal Assistance 6=Modified [place] 3=Moderate Assistance 7=Complete [place] Therapy Quality Codes: 6 Independent with activity with or without an assistive device 5 Patient requires set up or clean up by helper. Patient completes activity by themselves 4 Supervision or touching assist (CGA). [place] provide cues , steadying assist 3 The helper provides less than half the effort to complete the activity 2 The helper provides more than half the effort to complete the activity 1 Dependent. The helper does all the effort to complete an activity 7 Patient refused to complete or attempt activity 9 The patient did not perform the activity before the current illness or injury 88 Not attempted due to Medical conditions or safety concerns Gait Training Does the Patient Walk?: Yes Distance (FIM): 5=578-51 ft Gait Assistive Device: FWW Wheelchair Training Does the Pt Use a Wheelchair?: No Mental Status/Objective Comprehension: 7 Expression: 7 Social Interaction: 7 Problem Solvin Memory: 7 ADL-Treatment Feedin (Pt has demonstrated ability to complete own set up and uses regular utensils to eat.) Eating (QC): 6 Groomin (Standing at sink, pt able to complete by self.) Oral Hygiene (QC): 6 Bathin (Using shower bench, grabbars and hand held shower pt able to complete by self.) Bathing Location: L Arm, R Arm, L Upper Leg, R Upper Leg, L Lower Leg ( including foot), R Lower Leg (including foot), Chest, Abdomen, Buttocks, Perineal Area Shower/Bathe Self (QC): 6 Upper Extremity Dressin (Pt able to retrieve clothing using FWW and dresses upper body by self.) Upper Body Dressing (QC): 6 Lower Extremity Dressin (Retrieves clothing with FWW and is able to dress using AE when needed.) Lower Body Dressing (QC): 6 On/Off Footwear (QC): 6 Toiletin (Using BSC, grabbars and FWW pt able to complete by self.) Toileting Hygiene (QC): 6 Toilet/Commode Transfer: 6 (Using BSC, grabbars and FWW to complete transfer.) Toilet Transfer (QC): 6 Shower: 6 (Using FWW, grabbars and shower bench.) Assessment/Plan Assessment and Plan Assess & Plan/Chief Complaint Assessment: s/p right hip fracture s/p repair Dr Rodríguez HTN Smoker h/o breast cancer h/o diverticulosis Post op constipation now resolved Plan: IRF Intensive therapies Toe touch x 6 weeks Home meds BM regimen to continue to now prevent recurrence constipation Maintain DVT prophylaxis Discharge plan for tomorr, Sunday (1) Closed right hip fracture (2) Smoker (3) Hypertension (4) DVT prophylaxis (5) HX: breast cancer (6) Diverticulosis (7) Constipation Assessment & Plan: Resolved FATUMA MORENO DO Feb 01, 2019 11:48
--- NOTE | 2019-02-01 13:00 | NUR ---
PICKED UP LORTAB SCRIPT AND HAD FILLED TODAY AT [facility] IN PREP FOR DC TOMORROW.
[2019-02-01 17:10] VITALS: BP 150/90
[2019-02-01] MEDS: PATCH REMOVAL TP SCH (19:21)
[2019-02-02] MEDS: HYDROcodone/APAP 5 MG/325 MG (LORTAB) TAB PO PRN (01:29)
[2019-02-02 06:21] VITALS: BP 175/60
[2019-02-02] MEDS: ENOXAPARIN 40 MG/0.4 ML (LOVENOX) SYR SC SCH (08:54)
[2019-02-02] MEDS: DOCUSATE SODIUM 100 MG (COLACE) CAP PO SCH (08:55)
[2019-02-02] MEDS: DULOXETINE 60 MG CAPSULE PO SCH (08:55)
[2019-02-02] MEDS: lisINopril 20 MG (PRINIVIL) TABLET PO SCH (08:57)
[2019-02-02] MEDS: FUROSEMIDE 20 MG (LASIX) TAB PO SCH (08:57)
[2019-02-02] MEDS: LIDOCAINE 4% (SALONPAS) PATCH TOP SCH (08:59)
[2019-02-02 10:18] VITALS: BP 122/76
--- NOTE | 2019-02-02 11:16 | Discharge Summary ---
Diagnosis/Chief Complaint Date of Admission Jan 28, 2019 at 11:00 Date of Discharge Feb 02, 2019 at 10:00 Discharge Date: Feb 02, 2019 Discharge Diagnosis Assessment: s/p right hip fracture s/p repair Dr Rodríguez HTN Smoker h/o breast cancer h/o diverticulosis Post op constipation now resolved Plan: IRF Intensive therapies Toe touch x 6 weeks Home meds BM regimen to continue to now prevent recurrence constipation Maintain DVT prophylaxis Discharge home (1) Closed right hip fracture (2) Smoker (3) Hypertension (4) DVT prophylaxis (5) HX: breast cancer (6) Diverticulosis (7) Constipation Discharge Summary Discharge Physical Examination Allergies: Coded Allergies: amoxicillin (Verified Allergy, Intermediate, RASH AND LIP SWELLING, ) metronidazole (Verified Allergy, Intermediate, RASH AND BUMPS ON LEGS, ) Sulfa (Sulfonamide Antibiotics) (Unverified Allergy, Unknown, RASH, ) cephalexin (Unverified Allergy, Unknown, 12/21/10) clavulanic acid (Unverified Allergy, Unknown, 01/26/19) levofloxacin (Verified Allergy, Unknown, TENDON PAIN IN ANKLES, 01/27/19) Uncoded Allergies: STEROIDS (Allergy, Unknown, 12/21/10) Vitals & I&Os Vital Signs Date Time Temp Pulse Resp B/P (MAP) Pulse Ox O2 Delivery O2 Flow Rate FiO2 02/02/19 10:18 62 18 122/76 95 Room Air 02/02/19 06:21 97.4 Hospital Course Was the Problem List Reviewed?: Yes Patient had a brief hospital course in inpatient rehab at her request. She participated in all therapies as required. Toe-touch weightbearing education was provided to help heal the hip fracture per Dr. Rodríguez's recommendation. Constipation resolved once arrived in inpatient rehab and pain was controlled with Lortab. Smoking cessation was counseled. Patient overall improved dramatically was able to be discharged in improved status home with her . Labs (last 24 hrs) Laboratory Tests 01/29/19 05:55: White Blood Count 7.8, Red Blood Count 3.33L, Hemoglobin 10.6L, Hematocrit 32L, Mean Corpuscular Volume 95, Mean Corpuscular Hemoglobin 32, Mean Corpuscular Hemoglobin Concent 34, Red Cell Distribution Width 13.6, Platelet Count 204, Mean Platelet Volume 8.4, Neutrophils (%) (Auto) 69, Lymphocytes (%) (Auto) 22, Monocytes (%) (Auto) 7, Eosinophils (%) (Auto) 2, Basophils (%) (Auto) 0, Neutrophils # (Auto) 5.4, Lymphocytes # (Auto) 1.7, Monocytes # (Auto) 0.5, Eosinophils # (Auto) 0.1, Basophils # (Auto) 0.0, Sodium Level 139, Potassium Level 3.4L, Chloride Level 106, Carbon Dioxide Level 25, Anion Gap 8, Blood Urea Nitrogen 7, Creatinine 0.63, Estimat Glomerular Filtration Rate > 60, BUN/ Creatinine Ratio 11, Glucose Level 101, Calcium Level 8.8, Corrected Calcium 9.4 , Total Bilirubin 0.8, Aspartate Amino Transf (AST/SGOT) 34, Alanine Aminotransferase (ALT/SGPT) 44, Alkaline Phosphatase 72, Total Protein 5.3L, Albumin 3.2 Pending Labs Laboratory Tests 01/29/19 05:55: White Blood Count 7.8, Red Blood Count 3.33, Hemoglobin 10.6, Hematocrit 32, Mean Corpuscular Volume 95, Mean Corpuscular Hemoglobin 32, Mean Corpuscular Hemoglobin Concent 34, Red Cell Distribution Width 13.6, Platelet Count 204, Mean Platelet Volume 8.4, Neutrophils (%) (Auto) 69, Lymphocytes (%) (Auto) 22, Monocytes (%) (Auto) 7, Eosinophils (%) (Auto) 2, Basophils (%) (Auto) 0, Neutrophils # (Auto) 5.4, Lymphocytes # (Auto) 1.7, Monocytes # (Auto) 0.5, Eosinophils # (Auto) 0.1, Basophils # (Auto) 0.0, Sodium Level 139, Potassium Level 3.4, Chloride Level 106, Carbon Dioxide Level 25, Anion Gap 8, Blood Urea Nitrogen 7, Creatinine 0.63, Estimat Glomerular Filtration Rate > 60, BUN/ Creatinine Ratio 11, Glucose Level 101, Calcium Level 8.8, Corrected Calcium 9.4 , Total Bilirubin 0.8, Aspartate Amino Transf (AST/SGOT) 34, Alanine Aminotransferase (ALT/SGPT) 44, Alkaline Phosphatase 72, Total Protein 5.3, Albumin 3.2 Discharge Home Medications: Active Scripts Active Aspirin EC (Aspirin) 325 Mg Tablet.dr 325 Mg PO BID Docusate Sodium 100 Mg Capsule 100 Mg PO BID Hydrocodone/Acetaminophen 5/325mg Tablet (Acetaminophen/Hydrocodone Bitart) 1 Tab Tab 1-2 Tab PO Q4H PRN Reported Furosemide 20 Mg Tablet 20 Mg PO DAILY Metoprolol Succinate 25 Mg Tab.er.24h 25 Mg PO BID Lisinopril 20 Mg Tablet 20 Mg PO BID Famotidine 20 Mg Tablet 20 Mg PO DAILY PRN Duloxetine HCl 60 Mg Capsule.dr 60 Mg PO DAILY Instructions to patient/family Please see electronic discharge instructions given to patient. Diagnosis/Problems Diagnosis/Problems (1) Closed right hip fracture Qualifiers: Qualified Codes: S72.001A - Fracture of unspecified part of neck of right femur, initial encounter for closed fracture (2) Smoker (3) Hypertension (4) DVT prophylaxis (5) HX: breast cancer (6) Diverticulosis (7) Constipation Assessment & Plan: Resolved Clinical Quality Measures DVT/VTE Risk/Contraindication: Risk Factor Score Per Nursin RFS Level Per Nursing on Admit: 4+=Very High FATUMA MORENO DO Feb 02, 2019 11:16
--- NOTE | 2019-02-03 08:40 | Therapy Team Discharge Summary ---
Therapy Discharge Summary Discharge Recommendations Date of Discharge Feb 02, 2019 at 10:00 Therapy D/C Recommendations: Home w/ Family Support, Physical Therapy Home Care Occupational Therapy Pt. has been seen by occupational therapy to increase overall strength and independence with daily skills. Pt. has met all goals with daily tasks. Pt. discharged home with spouse and home health physical therapy. No further OT needed at this time. Pt. has all equipment. Decreased UE Strength, Impaired I ADL's PT Weatherization And Housing Inspector Goals Intermediate Goals PT Weatherization And Housing Inspector Goals Time Frame: Feb 11, 2019 Transfers (B,C,W/C) (FIM): 7 Roll Left to Right (QC): 6 Sit to Lying (QC): 6 Lying-Sitting on Side/Bed(QC): 6 Sit to Stand (QC): 6 Chair/Ehp-bq-Oyjqx Xfer(QC): 6 Car Transfer (QC): 6 Does the Patient Walk: Yes Gait distance (FIM): 3=150 ft Distance: 200 Walk 10 feet (QC): 6 Walk 10ft-Uneven Surface(QC): 6 Walk 50ft with 2 Turns (QC): 6 Walk 150 ft (QC): 6 Gait Assistive Device: FWW Does the Pt use WC or Scooter?: No Stairs (FIM): 5 # of Steps: 4 1 Step (curb) (QC): 6 4 Steps (QC): 6 12 Steps (QC): 88 Picking up an Object (QC): 88 OT Intermediate Goals Intermediate Goals Time Frame: Feb 04, 2019 Eating (FIM): 6 (met-01/31/19) Eating (QC): 6 (met-01/31/19) Oral Hygiene (QC): 6 (met-01/31/19) Grooming(FIM): 6 (met-01/31/19) Bathing(FIM): 5 (met-01/31/19) Shower/Bathe Self (QC): 5 (met-01/31/19) Upper Body Dressing(FIM): 6 (met-01/31/19) Upper Body Dressing (QC): 6 (met-01/31/19) Lower Body Dressing(FIM): 6 (met-01/31/19) Lower Body Dressing (QC): 6 (met-01/31/19) On/Off Footwear (QC): 6 (met-01/31/19) Toileting(FIM): 6 (met-01/31/19) Toileting Hygiene (QC): 6 (met-01/31/19) Transfers (B,C,W/C) (FIM): 6 (met-01/31/19) Toilet/Commode Transfer(FIM): 6 (met-01/31/19) Toilet/Commode Transfer (QC): 6 (met-01/31/19) Shower Transfer(FIM): 5 (met-01/31/19) Additional Goals: 1-Demonstrate ADL Tasks, 2-Verbalize Understanding, 3- ImproveStrength/Martina 1=Demonstrate adherence to instructed precautions during ADL tasks. 2=Patient will verbalize/demonstrate understanding of assistive devices/ modifications for ADL. 3=Patient will improve strength/tolerance for activity to enable patient to perform ADL's. PALOMA MEJIA OT Feb 03, 2019 08:39
--- NOTE | 2019-02-03 08:44 | Therapy Team Discharge Summary ---
Therapy Discharge Summary Discharge Recommendations Date of Discharge Feb 02, 2019 at 10:00 Therapy D/C Recommendations: Home w/ Family Support, Physical Therapy Home Care Physical Therapy This patient was seen on ARU post surgery for a hip fracture after a fall on a curb. Her PLOF was indep with all mobility and an active community ambulator. Upon admission to this unit, she was mod assist with transfers, walked 50 ft with FWW with min assist and scored 1 on stairs. Treatment has consisted of functional strengthening and balance as well as safety education to progress functional tranfers and gait. At discharge, she was mod indep with gait and transfers and went up/down 4 steps with sBA. She has met goals to a satisfactory level to return home and patient very anxious to discharge home. Recommend follow up PT on a C or outpt basis. DC PT. Occupational Therapy Decreased UE Strength, Impaired I ADL's PT Mcc Goals Aviation Program Manager Goals PT Aviation Program Manager Goals Time Frame: Feb 11, 2019 Transfers (B,C,W/C) (FIM): 7 (pt is mod indep with transfers; remains at a 6) Roll Left to Right (QC): 6 Sit to Lying (QC): 6 Lying-Sitting on Side/Bed(QC): 6 Sit to Stand (QC): 6 Chair/Llu-tb-Kukbb Xfer(QC): 6 Car Transfer (QC): 6 Does the Patient Walk: Yes Gait distance (FIM): 3=150 ft Distance: 200 Walk 10 feet (QC): 6 Walk 10ft-Uneven Surface(QC): 6 Walk 50ft with 2 Turns (QC): 6 Walk 150 ft (QC): 6 Gait Assistive Device: FWW Does the Pt use WC or Scooter?: No Stairs (FIM): 5 (pt scored a 3; SBA on 4 steps) # of Steps: 4 1 Step (curb) (QC): 6 4 Steps (QC): 6 12 Steps (QC): 88 Picking up an Object (QC): 88 OT Mcc Goals Mcc Goals Time Frame: Feb 04, 2019 Eating (FIM): 6 (met-01/31/19) Eating (QC): 6 (met-01/31/19) Oral Hygiene (QC): 6 (met-01/31/19) Grooming(FIM): 6 (met-01/31/19) Bathing(FIM): 5 (met-01/31/19) Shower/Bathe Self (QC): 5 (met-01/31/19) Upper Body Dressing(FIM): 6 (met-01/31/19) Upper Body Dressing (QC): 6 (met-01/31/19) Lower Body Dressing(FIM): 6 (met-01/31/19) Lower Body Dressing (QC): 6 (-01/31/19) On/Off Footwear (QC): 6 (met-01/31/19) Toileting(FIM): 6 (met-01/31/19) Toileting Hygiene (QC): 6 (-01/31/19) Transfers (B,C,W/C) (FIM): 6 (-01/31/19) Toilet/Commode Transfer(FIM): 6 (-01/31/19) Toilet/Commode Transfer (QC): 6 (-01/31/19) Shower Transfer(FIM): 5 (-01/31/19) Additional Goals: 1-Demonstrate ADL Tasks, 2-Verbalize Understanding, 3- ImproveStrength/Martina 1=Demonstrate adherence to instructed precautions during ADL tasks. 2=Patient will verbalize/demonstrate understanding of assistive devices/ modifications for ADL. 3=Patient will improve strength/tolerance for activity to enable patient to perform ADL's. STEPAN JEFFERSON PT Feb 03, 2019 08:44
--- NOTE | 2019-02-05 11:32 | Physician Query Clarification ---
PQ-Further Specificity Admission/Discharge Admission Date: Jan 28, 2019 at 11:00 Discharge Date: Feb 02, 2019 at 10:00 The medical record reflects the following clinical scenario: History/Risk Factors: Rt. hip fracture, HTN Clinical Findings: Acute appearing mildly displaced and foreshortened intertrochanteric fracture of the right hip on 01/26/19 CT lower extremity in the acute IP chart Treatment: hip repair Question: Can you further specify closed rt. hip fracture per the clinical indicators above? Please document below. 1. Rt. intertrochanteric fracture 2. Closed Rt. hip fracture 3. Other, with explanation of the clinical findings. 4. Clinically undetermined, no explanation for the clinical findings. PHYSICIAN RESPONSE Can you specify per above: Clinically undetermined (please inquire with ortho) In responding to this query, please exercise your independent professional judgment. The purpose of this communication is to more accurately reflect the complexity of your patients condition. The fact that a question is asked does not imply that any particular answer is desired or expected. Thank you for your timely response to this clarification. Requestors name: Romaine THIS PHYSICIAN QUERY FORM IS A PERMANENT PART OF THE MEDICAL RECORD ROMAINE HERNANDEZ Feb 05, 2019 11:32 FATUMA MORENO DO Feb 05, 2019 11:55
--- NOTE | 2019-02-06 08:08 | Physician Query Clarification ---
PQ-Further Specificity Admission/Discharge Admission Date: Jan 28, 2019 at 11:00 Discharge Date: Feb 02, 2019 at 10:00 The medical record reflects the following clinical scenario: History/Risk Factors: Rt. hip fracture, HTN Clinical Findings: Acute appearing mildly displaced and foreshortened intertrochanteric fracture of the right hip on 01/26/19 CT lower extremity in the acute IP chart Treatment: hip repair Question: Can you further specify closed rt. hip fracture per the clinical indicators above? Please document below. 1. Rt. intertrochanteric fracture 2. Closed Rt. hip fracture 3. Other, with explanation of the clinical findings. 4. Clinically undetermined, no explanation for the clinical findings. In responding to this query, please exercise your independent professional judgment. The purpose of this communication is to more accurately reflect the complexity of your patients condition. The fact that a question is asked does not imply that any particular answer is desired or expected. Thank you for your timely response to this clarification. Requestors name: Romaine THIS PHYSICIAN QUERY FORM IS A PERMANENT PART OF THE MEDICAL RECORD ROMAINE HERNANDEZ Feb 06, 2019 08:08
== END 2019-02-02 10:00 | disposition home or self-care (01) | DRG 561 ==
PROVIDERS: ADMIT Internal Medicine; ATTEND Internal Medicine
DX: S72.141D Displaced intertrochanteric fracture of right femur, subsequent encounter for closed fracture with routine healing (principal); F17.210 Nicotine dependence, cigarettes, uncomplicated; I10 Essential (primary) hypertension; M79.7 Fibromyalgia; F41.9 Anxiety disorder, unspecified; K59.09 Other constipation; K57.90 Diverticulosis of intestine, part unspecified, without perforation or abscess without bleeding; Z85.3 Personal history of malignant neoplasm of breast; W19.XXXD Unspecified fall, subsequent encounter
CPT/HCPCS: 36415; 80053; 85025

== ENCOUNTER → 2019-04-23 | Outpatient (CLI) | payer MEDICARE, OTHER ==
[~2019-04-23] MED LIST changes: +ACHD5005 PO; +ASPI325T32 PO; +DOCU100C37 PO
--- NOTE | 2019-04-23 13:41 | Diagnostic Imaging Report ---
INDICATION: Routine screening. COMPARISON: 04/22/2018 and 02/15/2017. TECHNIQUE: 2D and 3D bilateral screening mammography was performed with CAD. FINDINGS: Scattered fibroglandular densities are identified bilaterally. A benign nodular density in the outer right breast appears to be stable. Post-therapeutic changes in the upper outer left breast at mid depth appears stable. Multiple benign-appearing calcifications throughout the left breast are again noted. No new mass or malignant appearing microcalcifications are seen. The axillae are unremarkable. IMPRESSION: Stable bilateral mammograms. There are no mammographic features suspicious for malignancy. ACR BI-RADS Category 2: Benign findings. Result letter will be mailed to the patient. Note: At least 10% of breast cancer is not imaged by mammography. Dictated by: Dictated on workstation # [id number]
== END ==
LOC: RAD 10:03
PROVIDERS: ATTEND Internal Medicine Hematology & Oncology
DX: Z12.31 Encounter for screening mammogram for malignant neoplasm of breast (principal)
CPT/HCPCS: 77067

== ENCOUNTER 2019-05-29 09:09 | Outpatient (RCR) | payer MEDICARE, OTHER ==
[~2019-05-29 09:09] MED LIST changes: -DULO60CA58 PO; +DULO60CA59 PO
[2019-05-29 09:24] LABS: BASOPHILS % (AUTO) 0 % (0-10); EOSINOPHILS # (AUTO) 0.1 10^3/uL (0.0-0.3); EOSINOPHILS % (AUTO) 2 % (0-10); HEMATOCRIT 42 % (35-52); HEMOGLOBIN 14.1 G/DL (11.5-16.0); LYMPHOCYTES % (AUTO) 30 % (12-44); MEAN CORPUSCULAR HEMOGLOBIN 31 PG (25-34); MEAN CORPUSCULAR HGB CONC 33 G/DL (32-36); MEAN CORPUSCULAR VOLUME 93 FL (80-99); MEAN PLATELET VOLUME 8.5 FL (7.4-10.4); MONOCYTES # (AUTO) 0.5 X 10^3 (0.0-1.0); MONOCYTES % (AUTO) 7 % (0-12); NEUTROPHILS % (AUTO) 60 % (42-75); PLATELET COUNT 297 10^3/uL (130-400); RED CELL DISTRIBUTION WIDTH 13.7 % (10.0-14.5); WHITE BLOOD COUNT 6.6 10^3/uL (4.3-11.0)
[2019-05-29 09:47] LABS: ALANINE AMINOTRANSFERASE 16 U/L (0-55); ALKALINE PHOSPHATASE 116 U/L (40-136); BILIRUBIN,TOTAL 0.5 MG/DL (0.1-1.0); BUN/CREATININE RATIO 17; CALCIUM 9.1 MG/DL (8.5-10.1); CARBON DIOXIDE 25 MMOL/L (21-32); CHLORIDE 105 MMOL/L (98-107); GFR ESTIMATED > 60; GLUCOSE 72 MG/DL (70-105); POTASSIUM 3.6 MMOL/L (3.6-5.0); SODIUM 139 MMOL/L (135-145); TOTAL PROTEIN 6.7 GM/DL (6.4-8.2)
== END 2019-08-27 | disposition home or self-care (01) ==
LOC: ONC 09:09
PROVIDERS: ATTEND Internal Medicine Hematology & Oncology
DX: Z08 Encounter for follow-up examination after completed treatment for malignant neoplasm (principal); Z85.3 Personal history of malignant neoplasm of breast; Z92.3 Personal history of irradiation; Z90.49 Acquired absence of other specified parts of digestive tract
CPT/HCPCS: 36415; 80053; 85025; 99213

== ENCOUNTER → 2020-04-26 | Outpatient (CLI) | payer MEDICARE, OTHER ==
[~2020-04-26] MED LIST changes: -METO-387 PO; +MTP25TSR PO
--- NOTE | 2020-04-26 11:01 | Diagnostic Imaging Report ---
INDICATION: Routine screening. Comparison is made with prior mammogram from 04/23/2019 and 04/22/2018. 2-D and 3-D bilateral screening mammography was performed with CAD. Scattered fibroglandular densities are identified bilaterally. Intraparenchymal lymph node outer right breast is stable. Post-therapeutic changes with spiculation and architectural distortion in the upper and outer aspect of the left breast appears to be stable. There are benign calcifications. No malignant appearing microcalcifications are seen. There are surgical clips in the left axilla. Right axilla is unremarkable. IMPRESSION: BI-RADS Category 2 No mammographic features suspicious for malignancy are identified. ACR BI-RADS Category 2: Benign findings. Result letter will be mailed to the patient. Note: At least 10% of breast cancer is not imaged by mammography. Dictated by: Dictated on workstation # [id number]
== END ==
LOC: RAD 09:35
PROVIDERS: ATTEND Internal Medicine Hematology & Oncology
DX: Z12.31 Encounter for screening mammogram for malignant neoplasm of breast (principal)
CPT/HCPCS: 77063; 77067

== ENCOUNTER 2020-11-26 05:29 | Outpatient (RCR) | payer MEDICARE, OTHER ==
[~2020-11-26] VITALS: Ht 172.7 cm; Wt 76.0 kg
[~2020-11-26 05:29] MED LIST changes: +AMLO-250 PO; -LISI-552 PO; -LISI10TA2 PO; +LISI10TA25 PO; +LISI20TA26 PO; +METO-351 PO
== END 2020-11-26 12:39 | disposition home or self-care (01) ==
LOC: PREOP 05:29
PROVIDERS: ATTEND Surgery
DX: Z01.812 Encounter for preprocedural laboratory examination (principal); Z12.11 Encounter for screening for malignant neoplasm of colon; K21.9 Gastro-esophageal reflux disease without esophagitis; Z86.010 Personal history of colon polyps; Z20.822 Contact with and (suspected) exposure to COVID-19
CPT/HCPCS: 87635

== ENCOUNTER → 2020-11-30 | Day surgery (SDC) | payer MEDICARE, OTHER ==
[~2020-11-30] MED LIST changes: +HURRICAINE EXT TUBE (BENZOCAINE) ONE; +LACTATED RINGERS 0 ML IV ONE; +PANT40TA2 PO
== END ==
LOC: ENDO 08:46
PROVIDERS: ATTEND Surgery
DX: R11.2 Nausea with vomiting, unspecified (principal); Z53.8 Procedure and treatment not carried out for other reasons; K21.00 Gastro-esophageal reflux disease with esophagitis, without bleeding; I10 Essential (primary) hypertension; F41.9 Anxiety disorder, unspecified; K57.30 Diverticulosis of large intestine without perforation or abscess without bleeding; F17.210 Nicotine dependence, cigarettes, uncomplicated; Z79.899 Other long term (current) drug therapy; Z88.1 Allergy status to other antibiotic agents; Z88.2 Allergy status to sulfonamides; Z88.8 Allergy status to other drugs, medicaments and biological substances; Z90.710 Acquired absence of both cervix and uterus; Z86.010 Personal history of colon polyps; Z80.3 Family history of malignant neoplasm of breast

== ENCOUNTER 2020-12-01 08:35 | Day surgery (SDC) | payer MEDICARE, OTHER ==
[~2020-12-01] VITALS: Ht 172.7 cm; Wt 76.0 kg
[~2020-12-01 08:35] MED LIST changes: -HURRICAINE EXT TUBE (BENZOCAINE) ONE; -LACTATED RINGERS 0 ML IV ONE; -PANT40TA2 PO
[2020-12-01 09:00] VITALS: BP 132/69
[2020-12-01] MEDS ORDERED: LACTATED RINGERS 1,000 ML IV ONE (09:11)
[2020-12-01] MEDS ORDERED: MIDAZOLAM 2 MG/2 ML (VERSED) VIAL ONE (09:27)
[2020-12-01] MEDS ORDERED: PROPOFOL INJECTION 50 ML IV ONE ×2 (09:27→10:04)
[2020-12-01] MEDS ORDERED: CLINDAMYCIN 600 MG/50 ML IVPB 50 ML IV ONE ×3 (09:28→11:00)
--- NOTE | 2020-12-01 09:29 | Progress Note-Pre Operative ---
Pre-Operative Progress Note H&P Reviewed The H&P was reviewed, patient examined and no changes noted. Date Seen by Provider: Dec 01, 2020 Time Seen by Provider: : Date H&P Reviewed: Dec 01, 2020 Time H&P Reviewed: : Pre-Operative Diagnosis: gerd, epigastric abd pain, hx polyps JAKY WONG DO Dec 01, 2020 09:29
[2020-12-01] MEDS ORDERED: HURRICAINE EXT TUBE (BENZOCAINE) XX PRN (09:30)
[2020-12-01] MEDS ORDERED: LACTATED RINGERS 1,000 ML IV PRN (09:30)
[2020-12-01 10:20] VITALS: BP 127/62
[2020-12-01 10:25] VITALS: BP 135/69
[2020-12-01] MEDS ORDERED: PANT40TA2 PO (10:33)
--- NOTE | 2020-12-01 10:34 | Discharge Inst-Simple/Standard ---
Discharge Inst-Standard Discharge Medications New, Converted or Re-Newed RX: RX on Chart Patient Instructions/Follow Up Plan of Care/Instructions/FU: 2-3 weeks Albina Activity as Tolerated: Yes Discharge Diet: Regular Diet JAKY WONG DO Dec 01, 2020 10:34
[2020-12-01 10:35] VITALS: BP 135/69
--- NOTE | 2020-12-01 10:38 | Progress Note-Post Operative ---
Post-Operative Progess Note Surgeon (s)/Hairspring Setter (s) Surgeon JAKY WONG DO Hairspring Setter: na Pre-Operative Diagnosis gerd, epigastric abd pain, hx polyps Post-Operative Diagnosis hiatal hernia, reflux esophagitis, anal/rectal mucosal change, diverticulosis Procedure & Operative Findings Date of Procedure 12/01/20 Procedure Performed/Findings egd c biopsies, colonoscopy c cold biopsy anorectal biopsy. Anesthesia Type per roller structural mill Estimated Blood Loss Estimated blood loss (mL): scant Specimens/Packing Specimens Removed antrum, ge, anorectal biopsy JAKY WONG DO Dec 01, 2020 10:38
[2020-12-01 11:00] VITALS: BP 132/70
--- NOTE | 2020-12-01 12:59 | Anesthesia-General Post-Op ---
MAC Patient Condition Mental Status/LOC: Same as Preop Cardiovascular: Satisfactory Nausea/Vomiting: Absent Respiratory: Satisfactory Pain: Controlled Complications: Absent Post Op Complications Complications None Follow Up Care/Instructions Patient Instructions None needed. Anesthesiology Discharge Order Discharge Order Patient is doing well, no complaints, stable vital signs, no apparent adverse anesthesia problems. No complications reported per nursing. JOSEPH FRANKLIN CRNA Dec 01, 2020 12:59
--- NOTE | 2020-12-01 14:38 | OPERATIVE REPORT ---
DATE OF SERVICE: 12/01/2020 PREOPERATIVE DIAGNOSES: Gastroesophageal reflux disease, epigastric abdominal pain, history of polyps. POSTOPERATIVE DIAGNOSES: Hiatal hernia, reflux esophagitis, anorectal mucosal change, diverticulosis. PROCEDURE: EGD with biopsies, colonoscopy with cold biopsy of anorectal junction. SURGEON: Jaky Montemayor DO ANESTHESIA: Per HAT STEAMER. ESTIMATED BLOOD LOSS: Scant. COMPLICATIONS: None. INDICATIONS: The patient is a 75-year-old female with epigastric abdominal pain and GERD symptoms. She also has history of polyps. She understands risks and benefits of the procedure and wished to proceed with procedure. Consent was signed in the chart. DESCRIPTION OF PROCEDURE: The patient was taken to the endoscopy suite, placed in left lateral recumbent position. Timeout was performed. Scope was inserted in mouth, down the esophagus, stomach and into the duodenum without difficulty. There were no polyps, masses or ulcerations within the duodenum. Scope was slowly retracted back into the stomach where it was further insufflated. No polyps, masses or ulcerations in the stomach. Scope was retroflexed noting a moderate sized hiatal hernia, no other pathology. Scope was returned to its normal position. Biopsy of the antrum was obtained. Scope was slowly retracted back to distal esophagus. Appearance of reflux esophagitis present. Biopsy of the GE junction was obtained. Scope was then slowly retracted back until completely removed, noting no other pathology. Digital rectal exam was performed noting very slight prolapse and hemorrhoids. There were no palpable polyps, masses or ulcerations. Scope was inserted in the rectum and advanced all the way to cecum with minimal difficulty. Prep was adequate with irrigation and suction. Scope was then slowly retracted back. There were no polyps, masses or ulcerations within the cecum, ascending, transverse, descending colon. In the sigmoid colon, moderate amount of diverticulosis present. Scope was continuously retracted back in the rectum where it was also retroflexed noting some slight anorectal mucosal change, which cold biopsy was obtained. Scope was returned to its normal position, slowly withdrawn until completely removed. The patient tolerated procedure well without any complications. She was taken to recovery room in stable condition. RECOMMENDATIONS: The patient will be started on Protonix 40 mg daily. We will start famotidine to see if any improvement in symptoms. Await biopsy results for further recommendations. The patient will not need any further colonoscopies unless has change in condition. Job ID: [id number] DocumentID: [id number] Dictated Date: 12/01/2020 10:45:13 Teletypist Date: 12/01/2020 14:37:29 Dictated By: JAKY MONTEMAYOR DO
== END 2020-12-01 11:10 | disposition home or self-care (01) ==
LOC: ENDO 08:35
PROVIDERS: ATTEND Surgery
DX: K44.9 Diaphragmatic hernia without obstruction or gangrene (principal); K21.00 Gastro-esophageal reflux disease with esophagitis, without bleeding; K57.30 Diverticulosis of large intestine without perforation or abscess without bleeding; I10 Essential (primary) hypertension; K21.9 Gastro-esophageal reflux disease without esophagitis; F41.9 Anxiety disorder, unspecified; F17.210 Nicotine dependence, cigarettes, uncomplicated; Z79.899 Other long term (current) drug therapy; Z86.010 Personal history of colon polyps; Z88.2 Allergy status to sulfonamides; Z88.1 Allergy status to other antibiotic agents; Z88.8 Allergy status to other drugs, medicaments and biological substances; Z90.710 Acquired absence of both cervix and uterus; Z80.52 Family history of malignant neoplasm of bladder

== ENCOUNTER → 2021-05-02 | Outpatient (CLI) | payer MEDICARE, OTHER ==
[~2021-05-02] MED LIST changes: +PANT40TA2 PO
--- NOTE | 2021-05-02 12:24 | Diagnostic Imaging Report ---
Indication: Digital screening with CAD. COMPARISON: 04/2020, 04/2019 and 04/2018 FINDINGS: An area of post therapeutic scarring in the upper slightly outer aspect of the left breast shows further interval retraction and regression. There is some regional dystrophic calcifications stable. Breast parenchymal pattern otherwise unchanged with scattered fibroglandular densities. Intramammary lymph node in the right breast stable chronic and benign. No adverse development. IMPRESSION: Further involuting postsurgical changes to the left breast, other background benign findings stable and chronic with no suspicious feature or adverse development BI-RADS Category 2 ACR BI-RADS Category 2: Benign findings. Result letter will be mailed to the patient. Note: At least 10% of breast cancer is not imaged by mammography. Dictated by: Dictated on workstation # [id number]
== END ==
LOC: RAD 09:25
PROVIDERS: ATTEND Family Medicine
DX: Z12.31 Encounter for screening mammogram for malignant neoplasm of breast (principal)
CPT/HCPCS: 77063; 77067

== ENCOUNTER → 2021-06-07 | Outpatient (CLI) | payer MEDICARE, OTHER ==
[2021-06-07 14:50] LABS: BASOPHILS % (AUTO) 0 % (0-10); EOSINOPHILS # (AUTO) 0.1 10^3/uL (0.0-0.3); EOSINOPHILS % (AUTO) 2 % (0-10); HEMATOCRIT 42 % (35-52); HEMOGLOBIN 14.2 g/dL (11.5-16.0); LYMPHOCYTES # (AUTO) 2.2 X 10^3 (1.0-4.0); LYMPHOCYTES % (AUTO) 28 % (12-44); MEAN CORPUSCULAR HEMOGLOBIN 32 pg (25-34); MEAN CORPUSCULAR HGB CONC 34 g/dL (32-36); MEAN CORPUSCULAR VOLUME 94 fL (80-99); MEAN PLATELET VOLUME 8.5 fL (9.0-12.2); MONOCYTES # (AUTO) 0.5 X 10^3 (0.0-1.0); MONOCYTES % (AUTO) 6 % (0-12); NEUTROPHILS % (AUTO) 64 % (42-75); PLATELET COUNT 245 10^3/uL (130-400); WHITE BLOOD COUNT 7.9 10^3/uL (4.3-11.0)
[2021-06-07 14:55] LABS: CHLORIDE 105 MMOL/L (98-107); SODIUM 138 MMOL/L (135-145)
[2021-06-07 14:57] LABS: CALCIUM 9.7 MG/DL (8.5-10.1)
[2021-06-07 14:58] LABS: GLUCOSE 107 MG/DL (70-105); TOTAL PROTEIN 6.9 GM/DL (6.4-8.2)
[2021-06-07 14:59] LABS: CARBON DIOXIDE 27 MMOL/L (21-32)
[2021-06-07 15:00] LABS: BILIRUBIN,TOTAL 0.3 MG/DL (0.1-1.0)
[2021-06-07 15:01] LABS: ALKALINE PHOSPHATASE 89 U/L (40-136); CREATININE SERUM 0.82 MG/DL (0.60-1.30); GFR ESTIMATED 68
[2021-06-07 15:02] LABS: BUN/CREATININE RATIO 21
[2021-06-07 15:04] LABS: ALANINE AMINOTRANSFERASE 20 U/L (0-55); CREATINE KINASE 104 U/L (29-168)
--- NOTE | 2021-06-07 15:35 | Diagnostic Imaging Report ---
INDICATION: Shortness of breath and breast soreness. TIME OF EXAM: 3:01 PM Correlation is made with prior chest from 03/20/2012. Heart size is stable. There are clips in the left axilla. There is a subtle area of increased density in the right midlung field which may represent minimal infiltrate. Otherwise lungs are clear. There is no effusion or pneumothorax. IMPRESSION: Minimal right midlung infiltrate. Dictated by: Dictated on workstation # [id number]
== END ==
LOC: CARD 14:34
PROVIDERS: ATTEND Nurse Practitioner Family
DX: R06.02 Shortness of breath (principal); R07.9 Chest pain, unspecified; N64.4 Mastodynia
CPT/HCPCS: 36415; 71046; 80053; 82550; 84484; 85025; 93005

== ENCOUNTER → 2021-06-22 | Outpatient (CLI) | payer MEDICARE, OTHER ==
--- NOTE | 2021-06-22 09:28 | Diagnostic Imaging Report ---
INDICATION: Left breast pain. COMPARISON: 05/02/2021 and 04/26/2020. TECHNIQUE: Unilateral left 2D and 3D diagnostic mammography was performed with CAD. FINDINGS: There are post therapeutic changes in the upper and outer aspect of the left breast at mid depth. Overall, the therapeutic changes appear stable. No new mass is identified. There are scattered benign calcifications. No malignant-appearing microcalcifications are seen. There are surgical clips in the left axilla. IMPRESSION: Post therapeutic changes. There are no mammographic features suspicious for malignancy. ACR BI-RADS Category 2: Benign findings. Result letter will be mailed to the patient. Note: At least 10% of breast cancer is not imaged by mammography. Dictated by: Dictated on workstation # [id number]
== END ==
PROVIDERS: ATTEND Family Medicine
DX: N64.4 Mastodynia (principal)
CPT/HCPCS: 77065; G0279

== ENCOUNTER 2021-10-13 05:43 | Outpatient (CLI) | payer MEDICARE, OTHER ==
[~2021-10-13] VITALS: Ht 172.7 cm; Wt 75.9 kg
== END 2021-10-13 09:23 | disposition home or self-care (01) ==
LOC: PREOP 05:43
PROVIDERS: ATTEND Surgery
DX: Z01.818 Encounter for other preprocedural examination (principal)

== ENCOUNTER 2021-10-17 06:07 | Day surgery (SDC) | payer MEDICARE, OTHER ==
[~2021-10-17] VITALS: Ht 172 cm; Wt 75.9 kg
[2021-10-17] VITALS (11 sets, daily range): BP systolic 98–135; BP diastolic 66–91
[2021-10-17] MEDS ORDERED: CLINDAMYCIN 600 MG/50 ML IVPB 50 ML IV ONE (06:15)
[2021-10-17] MEDS ORDERED: LACTATED RINGERS 1,000 ML IV PRN (06:15)
[2021-10-17] MEDS ORDERED: SEVOFLURANE (ULTANE) 15 ML INHAL SOLN ONE (07:01)
[2021-10-17] MEDS ORDERED: proPOfol 200 MG/20 ML (DIPRIVAN) VIAL IV ONE (07:01)
[2021-10-17] MEDS ORDERED: LIDOCAINE PF 2% 5 ML (XYLOCAINE) VIAL ONE (07:01)
[2021-10-17] MEDS ORDERED: ONDANSETRON 4 MG/2 ML (SDV) Z0FRAN ONE (07:01)
[2021-10-17] MEDS ORDERED: fentaNYL INJ 100 MCG/2 ML AMP ONE (07:01)
[2021-10-17] MEDS ORDERED: LIDOCAINE/EPI 1%-1:200,000 (XYLOCAINE) 30 ML VIAL ONE (07:10)
--- NOTE | 2021-10-17 07:50 | Progress Note-Pre Operative ---
Pre-Operative Progress Note H&P Reviewed The H&P was reviewed, patient examined and no changes noted. Date Seen by Provider: Oct 17, 2021 Time Seen by Provider: 07:50 Date H&P Reviewed: Oct 17, 2021 Time H&P Reviewed: 07:50 Pre-Operative Diagnosis: left labial cyst JAKY WONG DO Oct 17, 2021 07:50
[2021-10-17] MEDS ORDERED: LIDOCAINE 1% INJ 20 ML 20 ML VIAL ONE (08:04)
[2021-10-17] MEDS ORDERED: GLYCOPYRROLATE 0.2 MG/ML (ROBINUL) 2 ML VIAL ONE (08:08)
[2021-10-17] MEDS ORDERED: PHENYLEPHRINE 100 MCG/ML 10 ML (ANESTHESIA) SYR ONE (08:08)
--- NOTE | 2021-10-17 08:43 | Discharge Inst-Simple/Standard ---
Discharge Inst-Standard Patient Instructions/Follow Up Plan of Care/Instructions/FU: 2 weeks Albina Activity as Tolerated: No Discharge Diet: Regular Diet Other Inst to Patient Follow up Appt: Make appointment for 2 week. Instructions: No lifting greater than 10 pounds. No strenuous activity. May shower in 24 hours, no tub bath or soaking. Use incentive spirometer at home as directed. No Smoking Skin/Wound Care: You have special glue over your incision that will fall off on it's own. Symptoms to Report: Appetite Changes, Extremity Discoloration, Numbness/Tingling, Swelling Increased, Bleeding Excessive, Eyesight Changes, Pain Increased, Urine Color Change, Constipation(Persistent), Fever over 101 degree F, Pain/Pressure in chest, Urinating Difficulty, Cough Up/Vomit Blood, Heart Beat Irreg/Pounding, Pain/Pressure in jaw, Vaginal Bleeding Increase, Cramps in feet or legs, Lightheadedness, Pain/Pressure in shoulder, Diarrhea(Persistent), Memory Changes Suddenly, Questions/Concerns, Weight gain consecutive days, Dizziness/Fainting, Nausea/Vomiting, Shortness of Breath, Weight gain over 2 pounds If questions or concerns contact your physician Or seek help at emergency department. JAKY WONG DO Oct 17, 2021 08:43
[2021-10-17] MEDS ORDERED: HYDROmorphone 2 MG/ML VIAL (DILAUDID) IV ONE (08:45)
[2021-10-17] MEDS ORDERED: ONDANSETRON 4 MG/2 ML (SDV) Z0FRAN IVP PRN (08:45)
--- NOTE | 2021-10-17 08:45 | Progress Note-Post Operative ---
Post-Operative Progess Note Surgeon (s)/Business Support Professional (s) Surgeon JAKY WONG DO Business Support Professional: na Pre-Operative Diagnosis left labial cyst Post-Operative Diagnosis same Procedure & Operative Findings Date of Procedure 10/17/21 Procedure Performed/Findings excision left labial cyst Anesthesia Type general Estimated Blood Loss Estimated blood loss (mL): minimal Specimens/Packing Specimens Removed left labial cyst (skin and subcutaneous tissue) JAKY WONG DO Oct 17, 2021 08:45
--- NOTE | 2021-10-17 18:07 | OPERATIVE REPORT ---
DATE OF SERVICE: 10/17/2021 PREOPERATIVE DIAGNOSIS: Left labial cyst. POSTOPERATIVE DIAGNOSIS: Left labial cyst. PROCEDURE: Excision of left labial cyst, 1.2 x 3 cm. SURGEON: Jaky Montemayor DO ANESTHESIA: General. ESTIMATED BLOOD LOSS: Minimal. COMPLICATIONS: None. INDICATIONS: The patient is a 76-year-old female with a cyst on the left labia that has and drained. The patient understands risks and benefits of procedure and wishes to proceed. Consent was signed in the chart. DESCRIPTION OF PROCEDURE: The patient was taken to the operating suite. She was prepped and draped in sterile fashion in lithotomy position. Local anesthetic was infiltrated around the area of cyst. A 15 blade scalpel was used to make a skin incision measuring 1.2 x 3 cm elliptical fashion. Cautery was used to remove the skin and subcutaneous tissues. Hemostasis was achieved. The skin was then closed using 4-0 Vicryl in a simple subcuticular interrupted fashion. The area was washed and dried and Skin Affix was placed over the incision. The patient tolerated procedure well without any complications. She was taken to recovery room in stable condition. Job ID: [id number] DocumentID: [id number] Dictated Date: 10/17/2021 11:40:57 Slots Manager Date: 10/17/2021 18:06:12 Dictated By: JAKY MONTEMAYOR DO
--- NOTE | 2021-10-20 13:05 | Anesthesia-General Post-Op ---
General Patient Condition Mental Status/LOC: Same as Preop Cardiovascular: Satisfactory Nausea/Vomiting: Absent Respiratory: Satisfactory Pain: Controlled Complications: Absent Post Op Complications Complications None Follow Up Care/Instructions Patient Instructions None needed. Anesthesia/Patient Condition Patient Condition Patient is doing well, no complaints, stable vital signs, no apparent adverse anesthesia problems. No complications reported per nursing. [place] [facility] [place] Yes ASHLEY PEREZ CRNA Oct 20, 2021 13:05
== END 2021-10-17 10:27 | disposition home or self-care (01) ==
LOC: SDC 06:07
PROVIDERS: ATTEND Surgery
DX: N90.7 Vulvar cyst (principal); K21.9 Gastro-esophageal reflux disease without esophagitis; I10 Essential (primary) hypertension; M79.7 Fibromyalgia; M19.90 Unspecified osteoarthritis, unspecified site; F41.9 Anxiety disorder, unspecified; F17.210 Nicotine dependence, cigarettes, uncomplicated; Z79.899 Other long term (current) drug therapy; Z85.3 Personal history of malignant neoplasm of breast; Z80.52 Family history of malignant neoplasm of bladder; Z90.49 Acquired absence of other specified parts of digestive tract; Z90.710 Acquired absence of both cervix and uterus
CPT/HCPCS: 87081

== ENCOUNTER → 2022-05-09 | Outpatient (CLI) | payer MEDICARE, OTHER ==
--- NOTE | 2022-05-09 15:09 | Diagnostic Imaging Report ---
INDICATION: Screening. EXAMINATION: Bilateral digital 3D screening with CAD. COMPARISON: June 2021, April 2021, April 2020, April 2019, and April 2018. DENSITY: 2. FINDINGS: There has been further retraction of spiculation in the upper slightly outer quadrant of the left breast at the site of prior surgery, consistent with its normal expected interval evolution. There are benign type calcifications, greater left, stable. No new abnormality. No suspicious findings. Asymmetric volume of the breasts, right larger than left, also unchanged and post-therapeutic. IMPRESSION: Benign post interventional changes. No adverse development or suspicious finding. ACR BI-RADS Category 2: Benign findings. Result letter will be mailed to the patient. Note: At least 10% of breast cancer is not imaged by mammography. Dictated by: Dictated on workstation # [id number]
== END ==
LOC: RAD 09:23
PROVIDERS: ATTEND Family Medicine
DX: Z12.31 Encounter for screening mammogram for malignant neoplasm of breast (principal)
CPT/HCPCS: 77063; 77067

== ENCOUNTER → 2022-10-31 | Outpatient (CLI) | payer MEDICARE, OTHER ==
--- NOTE | 2022-10-31 08:41 | Diagnostic Imaging Report ---
INDICATION: Postmenopausal state. COMPARISON: None available FINDINGS: AP Spine L2-L4: [BMD (g/cm2): 0.876] [T-Score: -2.7] [Z-Score: -1.3] [BMD Previous: NA] [BMD % Change: NA] LT Hip Neck: [BMD (g/cm2): 0.688] [T-Score: -2.5] [Z-Score: -0.8] LT Hip Total: [BMD (g/cm2):0.695] [T-Score:-2.5] [Z-Score: -0.9] [BMD Previous: NA] [BMD % Change: NA] RT Hip Neck: [BMD (g/cm2):NA] [T-Score:NA] [Z-Score:NA] RT Hip Total: [BMD (g/cm2):NA] [T-score:NA] [Z-Score:NA] [BMD Previous:NA] [BMD % Change:NA] *Indicates significant change from prior examination based on 95% confidence level. World Health Organization criteria for BMD interpretation classify patients as Normal (T-score at or above -1.0), Osteopenic (T-score between -1.0 and -2.5) or Osteoporotic (T-score at or below -2.5). LIMITATIONS AND MODIFICATION: The right hip was not evaluated secondary to postsurgical changes. IMPRESSION: 1. Osteoporosis. 2. Baseline examination. 3. See below National Osteoporosis Foundation guidelines on when to potentially initiate pharmacologic therapy. Based on the National Osteoporosis Foundation Guidelines, pharmacologic treatment should be initiated in any of the following, unless clinical conditions suggest otherwise: * Any patient with prior fragility fracture of the hip or vertebrae. A spine fracture indicates 5X risk for subsequent spine fracture and 2X risk for subsequent hip fracture. * Osteoporosis (T-score <-2.5). * Postmenopausal women and men age 50 and older with low bone mass/osteopenia (T-score between -1.0 and -2.5) by DXA and 10-year major osteoporotic fracture greater than 20% or a 10-year probability of hip fracture greater than 3%. These fracture risks are supplied above in the FRAX score, if applicable. * Clinician judgement and/or patient preferences may indicate treatment for people with 10-year fracture probabilities above or below these levels. Dictated by: Dictated on workstation # [id number]
--- NOTE | 2022-10-31 08:48 | Diagnostic Imaging Report ---
EXAMINATION: CT Lung Screening. INDICATION: Screening for lung cancer, 50+ pack year history of smoking, current smoker. TECHNIQUE: Noncontrast, low-dose CT imaging performed according to the lung cancer screening protocol. Auto Exposure Controls were utilize during the CT exam to meet ALARA standards for radiation dose reduction. COMPARISON: 04/22/2018. 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 Surgical clips within the left axilla. No significant adenopathy within the chest. Moderate scattered vascular calcifications without aneurysmal dilatation of the thoracic aorta. The heart is within normal limits in size. No significant pericardial effusion. Moderate-sized hiatal hernia. No pleural effusion. The trachea is patent. No pneumothorax. Moderate background emphysematous changes, both paraseptal and centrilobular in nature. This has worsened since the prior examination in 2018. 0.4 x 0.4 cm solid left upper lobe pulmonary nodule is present, new since the prior examination, series 2, image 89. New 0.7 x 0.6 cm part cystic/part solid nodule is noted within the subpleural left lower lobe, series 2, image 193. 0.9 x 0.5 cm solid subpleural right lower lobe pulmonary nodule, series 2, image 174 which appears stable to minimally more prominent than on the prior examination given differences in slice selection. 0.7 x 0.4 cm pleural-based right upper lobe pulmonary nodule, series 2, image 123, which appears stable to minimally increased in size since the prior examination given differences in slice selection. The minimally visualized upper abdomen is unremarkable. Scattered osseous degenerative changes without acute osseous abnormality. IMPRESSION: Increasing moderate background emphysematous changes with bilateral pulmonary nodules as described above. Several of these pulmonary nodules appear stable to minimally increased in size since 2018 given differences in slice selection/thickness; however, other pulmonary nodules appear new including a part solid 0.7 cm right lower lobe pulmonary nodule and a solid 0.4 cm left upper lobe pulmonary nodule. These new pulmonary nodules are probably benign. Moderate vascular calcifications with an aberrant right subclavian artery. Additional findings as above. LUNG-RADS CATEGORY: 3S: Probably benign. MODIFIER: S: Moderate background emphysematous changes. FOLLOWUP: Low-dose CT of the chest is recommended in 6 months. Dictated by: Dictated on workstation # [id number]
== END ==
LOC: RAD 07:26
PROVIDERS: ATTEND Family Medicine
DX: N95.9 Unspecified menopausal and perimenopausal disorder (principal); M81.0 Age-related osteoporosis without current pathological fracture; Z87.891 Personal history of nicotine dependence; R91.1 Solitary pulmonary nodule
CPT/HCPCS: 71271; 77080

== ENCOUNTER → 2023-05-10 | Outpatient (CLI) | payer MEDICARE, OTHER ==
--- NOTE | 2023-05-11 10:51 | Diagnostic Imaging Report ---
Bilateral digital 2-D and 3-D screening CAD. The current study was also evaluated with a Computer Aided Detection (CAD) system. COMPARISON: 04/2022, 04/2021, 04/2020 and 04/2019 FINDINGS: density 2. Distortion in the left breast with skin thickening secretory as well as dystrophic type calcifications and post-interventional changes on the left are stable. No changes to suggest development of malignancy. A benign lymph node in the right breast chronic. IMPRESSION: Stable post-therapeutic changes and benign findings on the left, no findings of malignancy. BI-RADS Category 2 ACR BI-RADS Category 2: Benign findings. Result letter will be mailed to the patient. Note: At least 10% of breast cancer is not imaged by mammography. Dictated by: Dictated on workstation # [id number]
== END ==
LOC: RAD 07:39
PROVIDERS: ATTEND Family Medicine
DX: Z12.31 Encounter for screening mammogram for malignant neoplasm of breast (principal)
CPT/HCPCS: 77063; 77067